=== PATIENT | female | born 1940 | race Caucasian/White ===

== ENCOUNTER → 2017-07-20 | Outpatient (REF) | payer MEDICARE ==
[~2017-07-20] MED LIST: /DILT60TAB PO; /NITR4TASL SL; ACET1TAB17 PO; AMLO5TAB2 PO; ASPI81TA7 PO; CIPR500T89 PO; COUM7.5T PO; DYAZCA PO; HALO0.5H PO; KEFL250C11 PO; LISI10TA2 PO; LOSA100T PO; MYCO500T PO; NORV5TAB PO; NYST50SS SS; OMEP20CA3 PO; PRED10TA PO; PRED5TAB PO; PRIL20CA PO; TYLE325T5 PO
[2017-07-20 18:23] LABS: ALBUMIN 3.9 GM/DL (3.2-5.2); ALBUMIN/GLOBULIN RATIO 1.11 (1.00-1.93); BILIRUBIN,TOTAL 0.4 MG/DL (0.2-1.0); CREATININE FOR GFR 1.87 MG/DL (0.55-1.02); GLOMERULAR FILTRATION RATE 27.9 (>39); POTASSIUM SERUM 4.2 MEQ/L (3.5-5.1); TOTAL PROTEIN 7.4 GM/DL (6.4-8.2)
[2017-07-20 18:48] LABS: MEAN CORPUSCULAR HEMOGLOBIN 28.6 pg (27.0-33.0); MEAN CORPUSCULAR HGB CONC 32.9 g/dl (32.0-36.5); RED CELL DISTRIBUTION WIDTH 13.1 % (11.5-14.5); WHITE BLOOD COUNT 8.8 10^3/uL (4.0-10.0)
== END ==
LOC: M SFHCCLAY 13:42
PROVIDERS: ATTEND Nurse Practitioner Family
DX: I10 Essential (primary) hypertension (principal); Z13.6 Encounter for screening for cardiovascular disorders; E55.9 Vitamin D deficiency, unspecified

== ENCOUNTER → 2017-07-20 | Outpatient (CLI) | payer MEDICARE ==
--- NOTE | 2017-07-20 14:45 | REP ---
RIGHT HIP, AP PELVIS, THREE VIEWS: HISTORY: Hip pain. COMPARISON: 10/04/2013 Three is no acute fracture or dislocation. There is narrowing of the joint space with associated sclerosis. IMPRESSION: Degenerative change as described above.
== END ==
LOC: M CLY 13:50
PROVIDERS: ATTEND Nurse Practitioner Family
DX: M25.551 Pain in right hip (principal); M16.11 Unilateral primary osteoarthritis, right hip; I12.9 Hypertensive chronic kidney disease with stage 1 through stage 4 chronic kidney disease, or unspecified chronic kidney disease; Z13.6 Encounter for screening for cardiovascular disorders; E55.9 Vitamin D deficiency, unspecified; N18.9 Chronic kidney disease, unspecified; D63.1 Anemia in chronic kidney disease
CPT/HCPCS: 73502; 80053; 80061; 82306; 85027; G0463

== ENCOUNTER → 2019-06-25 | Outpatient (REF) | payer MEDICARE, MEDICAID ==
[~2019-06-25] MED LIST changes: -/DILT60TAB PO; -/NITR4TASL SL; -ACET1TAB17 PO; +ACET1TAB55 PO; +DILT1TAB12 PO; +LISI10TA15 PO; -LISI10TA2 PO; +NITR0.4S SL; -OMEP20CA3 PO; +OMEP20CA4 PO; +PRED-351 PO; -PRED10TA PO
[2019-06-25 14:39] LABS: PERCENT SATURATION 9.7 % (13.2-45.0)
== END ==
LOC: M LAB REF 13:48
PROVIDERS: ATTEND Internal Medicine Nephrology
DX: D50.9 Iron deficiency anemia, unspecified (principal)

== ENCOUNTER → 2019-07-05 | Outpatient (CLI) | payer MEDICARE, MEDICAID ==
--- NOTE | 2019-07-05 15:14 | REP ---
Urinary tract sonography: History: Chronic kidney disease stage IV. Findings: Scanning at the level of the urinary bladder shows the presence of emptying ureteral jets bilaterally on color Doppler interrogation of the bladder lumen. The visualized bladder rincon are smooth. There is no evidence of hydronephrosis on either side. The kidneys are atrophic and echogenic consistent with chronic medical renal disease. No mass, cyst, or calculus appreciated. The right kidney measures 8.9 x 3.6 x 4.0 cm. Left renal dimensions are 7.9 x 2.8 x 3.3 cm. Impression: Bilateral increased renal cortical echogenicity pattern and bilateral renal atrophy consistent with chronic medical renal disease. No hydronephrosis is seen. Electronically Signed by Shreyas García MD 07/05/2019 04:28 P
== END ==
LOC: M RAD 14:10
PROVIDERS: ATTEND Internal Medicine Nephrology
DX: N18.4 Chronic kidney disease, stage 4 (severe) (principal)

== ENCOUNTER → 2019-08-28 | Outpatient (REF) | payer MEDICARE, MEDICAID ==
[2019-08-28 13:49] LABS: URINE VOLUME 1150 ML
[2019-08-28 14:04] LABS: PERCENT SATURATION 8.5 % (13.2-45.0)
[2019-08-28 14:06] LABS: CREATININE, SERUM 2.7 MG/DL (0.6-1.0)
[2019-08-28 14:07] LABS: CREATININE CLEARANCE, URINE 12.6 ML/MIN (75-115); CREATININE, URINE 42.7 MG/DL; TOTAL VOLUME, URINE 1150 ML; URINE TOTAL PROTEIN 146.7 MG/DL (0-12)
[2019-08-29 11:14] LABS: UPEP INTERPRETATION NO M-SPIKE NOTED
== END ==
LOC: M LAB REF 13:09
PROVIDERS: ATTEND Internal Medicine Nephrology
DX: D50.9 Iron deficiency anemia, unspecified (principal)

== ENCOUNTER 2020-01-08 19:05 | Inpatient (IN) | payer MEDICARE, MEDICAID ==
[~2020-01-08] VITALS: Ht 167.6 cm; Wt 42.6 kg
[~2020-01-08 19:05] MED LIST changes: +OMEP1CAP73 PO; -OMEP20CA4 PO
--- NOTE | 2020-01-08 20:20 | ECGEPIP ---
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
[2020-01-08] MEDS ORDERED: PRED5PAK PO (20:47)
[2020-01-08] MEDS ORDERED: FISH306C PO (20:47)
[2020-01-08] MEDS ORDERED: NITR4TASL SL ×2 (20:47→22:02)
[2020-01-08] MEDS ORDERED: FURO20TA2 PO (20:47)
[2020-01-08] MEDS ORDERED: GARL1000 PO ×2 (20:47→22:02)
[2020-01-08] MEDS ORDERED: ONE50TAB3 PO (20:47)
[2020-01-08] MEDS ORDERED: DIAL800T3 PO (20:47)
[2020-01-08] MEDS ORDERED: METO25TA4 PO (20:47)
[2020-01-08] MEDS ORDERED: ROCA0.25 PO (20:47)
[2020-01-08 20:52] LABS: BASO % 0.1 % (0.0-1.0); LYMPH # 0.3 10^3/uL (1.5-5.0); LYMPH % 1.8 % (24.0-44.0); MEAN CORPUSCULAR HEMOGLOBIN 27.4 pg (27.0-33.0); MEAN CORPUSCULAR HGB CONC 32.9 g/dl (32.0-36.5); MEAN CORPUSCULAR VOLUME 83.1 fl (80.0-96.0); MONO # 0.5 10^3/uL (0.0-0.8); NEUTROPHILS # 14.7 10^3/uL (1.5-8.5); NEUTROPHILS % 94.5 % (36.0-66.0); PLATELET COUNT, AUTOMATED 330 10^3/uL (150-450); RED BLOOD COUNT 2.01 10^6/uL (4.00-5.40); WHITE BLOOD COUNT 15.6 10^3/uL (4.0-10.0)
[2020-01-08 20:54] LABS: HEMATOCRIT 16.7 % (36.0-47.0); HEMOGLOBIN 5.5 g/dl (12.0-15.5)
[2020-01-08 21:11] LABS: INR 1.11; PARTIAL THROMBOPLASTIN TIME 31.4 SECONDS (25.0-38.4)
[2020-01-08 21:27] LABS: ALBUMIN 2.2 GM/DL (3.2-5.2); BILIRUBIN,DIRECT 0.1 MG/DL (0.0-0.2); BILIRUBIN,TOTAL 0.3 MG/DL (0.2-1.0); CALCIUM LEVEL 7.7 MG/DL (8.8-10.2); CREATININE FOR GFR 5.59 MG/DL (0.55-1.30); GLOMERULAR FILTRATION RATE 7.8 (>39); POTASSIUM SERUM 4.6 MEQ/L (3.5-5.1); TOTAL PROTEIN 5.1 GM/DL (6.4-8.2)
[2020-01-08] MEDS ORDERED: PRED5TA PO (22:02)
[2020-01-08] MEDS ORDERED: FISH1000 PO (22:02)
[2020-01-08] MEDS ORDERED: VITMTA PO (22:02)
[2020-01-08] MEDS ORDERED: RENATAB5 PO (22:02)
[2020-01-08 22:15] VITALS: BP 165/95
[2020-01-08 22:30] VITALS: BP 164/83
--- NOTE | 2020-01-08 23:13 | HPEPDOC ---
[facility] Medical History & Physical Date of Admission Jan 08, 2020 Date of Service: Jan 08, 2020 Primary Care Physician: Isaura Mororw Attending Physician: CHAS CHAMBERLAIN MD History and Physical CHIEF COMPLAINT: One-month history of worsening weakness, fatigue and dyspnea HISTORY OF PRESENT ILLNESS: Patient is a 79-year-old female with a past medical history significant for granulomatosis with polyangiitis, end-stage renal disease, hypertension, paroxysmal atrial fibrillation, who presents to the emergency department at the direction of Dr. Tolentino for symptomatic anemia. Patient reports at least one month history of nonproductive cough and worsening shortness of breath. She also reports increasing lethargy and fatigue. Pt was able to ambulate with assistance of a walker 2 weeks ago, now, she reports being unable to sit up unassisted for extended periods of time. She has not been able to eat the last few days secondary to intermittent nausea, without history of emesis. Upon arrival to the ED, patient was on a temperature of 97.5. Pulse of 101, respiratory rate of 19. Her blood pressure was 166/83 and she was maintaining a saturation of 85% on room air. She was subsequently placed on nasal cannula with 4 L of oxygen and her saturation increased to 90%. She was found demonstrated a leukocytosis of 15.6. H&H of 5.5/16.7. BUN/Cr of 90/5.59. Coag studies within normal limits. Respiratory PCR negative. Blood cultures pending. Patient was consented for blood products and a single unit was transfused while she is in emergency department. Patient will be admitted to the hospital for further evaluation and management of her symptomatic anemia and end-stage chronic kidney disease. PAST MEDICAL HISTORY: Granulomatosis with polyangiitis End-stage renal disease Hypertension Vitamin D deficiency Atrial fibrillation, paroxysmal Anemia of chronic disease PAST SURGICAL HISTORY: No surgical history documented SOCIAL HISTORY: Marital status: Resides in: Alone at home, alone Children: SonTravon Employment: Unemployed Tobacco use: Denies any history of nicotine use ETOH: Denies any alcohol use or history of abuse Illicit drug use: Denies any illicit drug use including IV aura marijuana. Other: Patient utilizes a walker for an evaluation at home. FAMILY HISTORY: Family history noncontributory ALLERGIES: Penicillin Myosin, hives Clarithromycin Cortisone Lisinopril, hallucinations REVIEW OF SYSTEMS: CONSTITUTIONAL: Patient reports history of increasing lethargy and fatigue. Also notes decreased appetite secondary to nausea. No significant changes in weight. No fevers or chills HEENT: Patient reports a long-standing history of intermittent headaches, amenable to [id number] therapy. No recent changes in vision or hearing. No difficulty swallowing. No sinus pain or pressure. No history of epistaxis. CARDIOVASCULAR: Denies any ami chest pain. No palpitations RESPIRATORY: Reports 1 month history of nonproductive cough, increasing shortness of breath GASTROINTESTINAL: Reports intermittent nausea without emesis, occasional belly pain after eating. No abdominal pain last few days. Does carry a history of intermittent constipation. No black tarry stools or ami blood. GENITOURINARY: Patient reports that she does make urine, denies any urinary symptoms including dysuria frequency, hesitancy or urgency SKIN: Denies any new or changing skin lesions. No new petechiae. MUSCULOSKELETAL: Reports intermittent nonspecific small and large joint pain. Denies any recent history of trauma or known effusions. NEUROLOGICAL: Denies any numbness or tingling in her hands feet arms or legs. Patient does report generalized weakness. PSYCHIATRIC: Reports being anxious regarding requiring dialysis. HOME MEDICATIONS: Please see below. PHYSICAL EXAMINATION: VITAL SIGNS: Temperature 97.8, pulse 92, respiratory rate 19, blood pressure 164/83 (110), pulse oximetry 88 % 4 L via nasal cannula. GENERAL APPEARANCE: Patient interviewed and examined in the emergency departmen t. Patient was found to be laying in bed comfortably in no acute distress. Alert and oriented 3 though, she does not appear to be the greatest historian in regards to her medical history. HEENT: Cephalic, atraumatic, conjunctiva pallor noted. No scleral icterus. PERRLA EOMI, mucous membranes appear pale and dry. No posterior erythema. No cervical lymphadenopathy. No JVD appreciated. Neck is supple CARDIOVASCULAR: Regular rate and rhythm, soft systolic ejection murmur appreciable over the second intercostal space on the right. Chest nontender. LUNGS: Even, shallow breaths. Able to speak in full sentences. Clear to auscultation bilaterally without any wheezes rales or rhonchi, no accessory mu scle use appreciated ABDOMEN: Soft NT / ND normal BS, No HSMG. No guarding or rebound tenderness. SKIN: Stage II pressure ulcer on sacrum. Clean, dry. No bleeding or drainage. MUSCULOSKELETAL: No joint effusions or notable muscle wasting EXTREMITIES: Some lower extremity petechiae noted bilaterally. No other obvious rashes or skin lesions. NEUROLOGICAL: No focal neurologic deficits, sensation equal both upper and lower extremities bilaterally. No apparent dysarthria or aphasia. PSYCHIATRIC: Patient appears anxious, congruent with current medical condition LABORATORY DATA: See below. IMAGING: Chest X-ray (01/08/20): Chest CT (01/08/20): Mild right and minimal left pleural effusions. Moderate bilateral pulmonary infiltrates with areas of consolidation, greatest in the upper lobes with minimal scattered fibro-atelectatic change and interstitial prominence. Mild cardiomegaly with trace pericardial fluid and superior recess. MICROBIOLOGY: Blood cultures 01/08/20): Pending Respiratory panel (01/08/20): Negative ASSESSMENT: Patient is a 79-year-old female, history significant for granulomatosis with polyangiitis, who presents to the emergency department at the behest of Dr. Carol Ann jerome for symptomatic anemia. Patient was found to have an H&H of 5.5/16.7. Received 1 unit in the ED. Pt to be admitted to PCU with tele for additional unit of pRBCs, management of her other comorbidities and likely dialysis later this week. PLAN: #Symptomatic Anemia * Suspect significant anemia of chronic disease compounded with iron deficiency * Patient consented and 1 unit of blood transfusion emergency department. * Second unit of PRBCs will be ordered * Continue to trend H&H and transfuse as necessary #Hypoxemia * Will continue patient on supplemental oxygen, close monitoring * Anticipate improvement with rise in H/H #End-stage renal disease * Patient does not appear to be in need of emergent dialysis. Patient is that she is agreeable to dialysis, she has been resistant in the past. * BUN/Cr of 90/5.59, creatinine of 2.7 on 08/28/19. * Nephrology to be consulted and we appreciate their input #Granulomatosis with polyangiitis * Continue patient on home dose of prednisone #Bilateral Pulmonary Infiltrates * Chest CT does show findings consistent with Shahrzad's. * PCN and Clarithromycin allergy, will start Levofloxicin PO for empiric treatment. * Pro-calcitonin for baseline and de-escalation * Follow Blood cultures * Sputum gram stain/cultures #Paroxysmal atrial fibrillation * Normal sinus rhythm on EKG * Rate controlled with a pulse 92 #Hypertension * Compounded by patient's Shahrzad's diagnosis. * Continue patient's home amlodipine and metoprolol #Vitamin D deficiency * Continue home calcitriol #Stage II pressure ulcer on sacrum * Routine care #Debility, question of noncompliance * Patient reports that she discontinue the majority of her medications appro ximately 2 months ago under the guidance of her bobbin winder tender. * As of current, patient states that she is continuing only on 5 mg of amlodipine and her prednisone. * PT/OT for deconditioning * PFS for home care/possible placement DVT PROPHYLAXIS: SubQ Heparin Q12 DISPOSITION: Anticipate greater than 2 midnights Attending Addendum: I discussed the care/management of this patient with Dr. Bates in detail and agree with the plan above. Vital Signs Vital Signs Date Time Temp Pulse Resp B/P (MAP) Pulse Ox O2 Delivery O2 Flow Rate FiO2 01/08/20 22:35 93 01/08/20 22:30 97.8 19 164/83 88 Nasal Cannula 4.0 Laboratory Data Labs 24H Laboratory Tests 2 01/08/20 19:58: Immature Granulocyte % (Auto) 0.6, Neutrophils (%) (Auto) 94.5H, Lymphocytes (%) (Auto) 1.8L, Monocytes (%) (Auto) 3.0, Eosinophils (%) (Auto) 0.0, Basophils (%) (Auto) 0.1, Neutrophils # (Auto) 14.7H, Lymphocytes # (Auto) 0.3L, Monocytes # (Auto) 0.5, Eosinophils # (Auto) 0.0, Basophils # (Auto) 0.0, Nucleated Red Blood Cells % (auto) 0.0, Prothrombin Time 14.0, Prothromb Time International Ratio 1.11, Activated Partial Thromboplast Time 31.4, Anion Gap 14, Glomerular Filtration Rate 7.8L, Calcium Level 7.7L, Iron Level 13L, Total Iron Binding Capacity 162L, Transferrin % Saturation 8.0L, Ferritin 311H, Total Bilirubin 0.3, Direct Bilirubin 0.1, Aspartate Amino Transf (AST/SGOT) 22, Alanine Aminotransferase (ALT/SGPT) 21, Alkaline Phosphatase 68, Total Protein 5.1L, Albumin 2.2L, Albumin/Globulin Ratio 0.76L, Lipase 123 CBC/BMP Laboratory Tests 01/08/20 19:58 Microbiology Microbiology 01/08/20 Respiratory Virus Panel (PCR) (WILBERTO) - Final, Complete 01/08/20 Blood Culture, Received Pending 01/08/20 Blood Culture, Received Pending Home Medications Scheduled Amlodipine Besylate (Norvasc) 5 Mg Tab, 5 MG PO DAILY Calcitriol (Rocaltrol) 0.25 Mcg Capsule, 0.25 MCG PO DAILY Folic Acid/Vit B Complex and C (Candice-Leslie Tablet) 0.8 Mg Tablet, 1 TAB PO DAILY Furosemide (Furosemide) 20 Mg Tablet, 20 MG PO DAILY Garlic (Garlic Oil) 1,000 Mg Capsule, 1 CAP PO DAILY Metoprolol Tartrate (Metoprolol Tartrate) 25 Mg Tablet, 25 MG PO BID Multivitamins (Thera M Plus Tablet) 1 Each Tablet, 1 TAB PO DAILY [place]-3 Fatty Acids/Fish Oil (Fish Oil 1,000 mg Capsule) 1 Each Capsule, 1,000 MG PO DAILY Prednisone (Prednisone) 5 Mg Tablet, 15 MG PO DAILY Scheduled PRN Nitroglycerin (Nitrostat) 0.4 Mg Tab.subl, 0.4 MG SL NITRO PRN for CHEST PAIN Miscellaneous Medications [place]-3/Dha/Epa/Fish Oil (Fish Oil 500 mg Softgel) 1 Each Capsule, 1 CAP PO Allergies Coded Allergies: clarithromycin (Verified Allergy, Intermediate, rash, 01/08/20) Penicillins (Verified Allergy, Unknown, 01/08/20) cortisone (Verified Allergy, Unknown, 01/08/20) lisinopril (Verified Allergy, Unknown, 01/08/20) A-FIB/CHADSVASC A-FIB History Current/History of A-Fib/PAF?: Yes Current PO Anticoag Therapy: No OH BATES DO Jan 08, 2020 23:13 CHAS CHAMBERLAIN MD Jan 15, 2020 21:47
[2020-01-08 23:30] VITALS: BP 174/88
--- NOTE | 2020-01-08 23:50 | REPVR ---
PROCEDURE INFORMATION: Exam: CT Chest Without Contrast Exam date and time: 01/08/2020 10:25 PM Age: 79 years old Clinical indication: Shortness of breath; Additional info: Sob/hx of granulomatosis with polyangitis TECHNIQUE: Imaging protocol: Computed tomography of the chest without contrast. 3D rendering: MIP and/or 3D reconstructed images were created by the technologist. Radiation optimization: All CT scans at this facility use at least one of these dose optimization techniques: automated exposure control; mA and/or kV adjustment per patient size (includes targeted exams where dose is matched to clinical indication); or iterative reconstruction. COMPARISON: CR PORTABLE CHEST X-RAY 01/08/2020 7:56 PM FINDINGS: Lungs: Moderate bilateral pulmonary infiltrates with areas of consolidation. Minimal scattered fibro-atelectatic change with interstitial prominence. Pleural space: Mild right and minimal left pleural effusions. Heart: The left atrium measures 4.9 cm in its AP dimension. Trace pericardial effusion in superior recesses. Aorta: Unremarkable. No aortic aneurysm. Lymph nodes: Unremarkable. No enlarged lymph nodes. Bones/joints: Unremarkable. No acute fracture. Soft tissues: Unremarkable. IMPRESSION: 1. Mild right and minimal left pleural effusions. 2. Moderate bilateral pulmonary infiltrates with areas of consolidation, greatest in the upper lobes with minimal scattered fibro-atelectatic change and interstitial prominence. 3. Mild cardiomegaly with trace pericardial fluid in superior recesses. Electronically signed by: Sky Chowdary On 01/08/2020 23:50:01 PM
[2020-01-09] VITALS (28 sets, daily range): BP systolic 141–189; BP diastolic 72–92; O2SAT 85–97
[2020-01-09] MEDS: METOPROLOL TART 25 MG TABLET PO SCH ×3 (02:05→20:59)
[2020-01-09] MEDS ORDERED: LevoFLOXacin 750 MG TABLET PO ONE (02:30)
[2020-01-09 06:13] LABS: HEMATOCRIT 26.2 % (36.0-47.0); MEAN CORPUSCULAR HEMOGLOBIN 28.1 pg (27.0-33.0); MEAN CORPUSCULAR HGB CONC 33.6 g/dl (32.0-36.5); MEAN CORPUSCULAR VOLUME 83.7 fl (80.0-96.0); PLATELET COUNT, AUTOMATED 309 10^3/uL (150-450); RED BLOOD COUNT 3.13 10^6/uL (4.00-5.40); WHITE BLOOD COUNT 17.2 10^3/uL (4.0-10.0)
[2020-01-09 06:15] LABS: HEMOGLOBIN 8.8 g/dl (12.0-15.5)
[2020-01-09] MEDS: HEPARIN SOD (PORCINE) 5000 UNITS/ML VIAL (J1644 PER 1000UNITS) SQ SCH ×2 (06:24→18:01)
[2020-01-09 06:41] LABS: ALBUMIN 2.3 GM/DL (3.2-5.2); BILIRUBIN,TOTAL 1.4 MG/DL (0.2-1.0); CALCIUM LEVEL 8.6 MG/DL (8.8-10.2); CREATININE FOR GFR 6.09 MG/DL (0.55-1.30); GLOMERULAR FILTRATION RATE 7.1 (>39); MAGNESIUM LEVEL 2.2 MG/DL (1.8-2.4); TOTAL PROTEIN 6.1 GM/DL (6.4-8.2)
[2020-01-09] MEDS ORDERED: FUROSEMIDE 100 MG/10 ML VIAL (J1940) IV ONE (07:00)
--- NOTE | 2020-01-09 08:10 | REP ---
PORTABLE CHEST X-RAY: Single view. HISTORY: Shortness of breath. History of granulomatosis with polyangiitis. COMPARISON CHEST X-RAY: May 08, 2015. FINDINGS: The heart is mildly enlarged. Thoracic aorta is tortuous as before. There are extensive bilateral perihilar infiltrates right more extensive and more opaque than left. These are new and most consistent with pneumonia. Pleural angles are sharp. Oxygen delivery tubing and monitoring electrodes are seen. There is diffuse osteopenia. IMPRESSION: Extensive bilateral perihilar infiltrates most consistent with pneumonia although pulmonary edema is a possibility. Heart is mildly prominent. Electronically Signed by Shreyas García MD 01/09/2020 09:31 A
[2020-01-09] MEDS ORDERED: predniSONE 5 MG TAB PO SCH (09:00)
[2020-01-09] MEDS: amLODIPine 5 MG TAB PO SCH (09:12)
[2020-01-09] MEDS: CALCITRIOL 0.25 MCG CAP (S0169) PO SCH (09:12)
[2020-01-09] MEDS: MULTIVITAMINS/MINERALS THERAP 1 TAB PO SCH (09:12)
[2020-01-09] MEDS: methylPREDNISolone INJ 125 MG/2 ML VIAL (J2930) IV SCH ×2 (09:13→20:58)
[2020-01-09] MEDS ORDERED: HEPARIN 1,000 UNITS/ML 10ML VIAL (FOR RADIOLOGY& DIALYSIS ONLY)(J1644-10) As Ordered ONE (09:34)
[2020-01-09] MEDS ORDERED: LIDOCAINE 1% MDV 20ML VIAL As Ordered ONE (09:34)
[2020-01-09] MEDS ORDERED: VANCOMYCIN HCL 500 MG/10 ML VIAL (J3370) As Ordered ONE (09:35)
[2020-01-09] MEDS ORDERED: fentaNYL 100 MCG/2 ML INJECTION (J3010) As Ordered ONE (10:11)
[2020-01-09] MEDS ORDERED: diphenhydrAMINE INJ 50MG/ML VIAL (J1200) As Ordered ONE (10:11)
[2020-01-09] MEDS ORDERED: MIDAZOLAM INJ 2 MG/2 ML VIAL (J2250) As Ordered ONE (10:11)
--- NOTE | 2020-01-09 10:38 | IRMSE ---
[facility] IR Moderate Sedation Eval. Date and Time Date: Jan 09, 2020 Time: 10:38 ASA Classification ASA Classification: III-Severe systemic dis. Mallampati Score: II NPO: Yes Obstructive Sleep Apnea: No Interval Plan: moderate sedation SOBIA QUINTANILLA MD Jan 09, 2020 10:38
--- NOTE | 2020-01-09 10:39 | POST-OPPD ---
Postoperative Procedure Note Date Of Procedure: Jan 09, 2020 Time Of Procedure: 10:38 PREOPERATIVE DIAGNOSIS: Rf POSTOPERATIVE DIAGNOSIS: same FINDINGS: patent right IJ PROCEDURE: right side PermCath placed. ready to use SURGEON: valentino ANESTHESIA: mod sed ESTIMATED BLOOD LOSS: < 5 ml COMPLICATIONS: none POSTOPERATIVE CONDITION: stable SOBIA QUINTANILLA MD Jan 09, 2020 10:39
[2020-01-09] MEDS ORDERED: HEPARIN 1,000 UNITS/ML 10ML VIAL (FOR RADIOLOGY& DIALYSIS ONLY)(J1644-10) XX ONE ×2 (10:45→14:00)
[2020-01-09] MEDS ORDERED: HEPARIN 1,000 UNITS/ML 10ML VIAL (FOR RADIOLOGY& DIALYSIS ONLY)(J1644-10) IV ONE ×2 (10:45→14:00)
--- NOTE | 2020-01-09 11:30 | CR ---
DATE OF CONSULTATION: 01/09/2020 REASON FOR CONSULTATION: Shortness of breath, renal failure and urgent need for dialysis. HISTORY OF PRESENT ILLNESS: Mrs. Ocampo is a 79-year-old frail lady with multiple chronic medical problems including a long history of microscopic polyangiitis, advanced renal failure, anemia secondary to chronic renal failure, hypertension, paroxysmal atrial fibrillation and generalized weakness. She was seen in the office a couple of weeks ago and at that time she was advised for admission due to advanced renal failure and need for dialysis. However, the patient declined it and went home. Her son who lives in the [facility] received a call from the patient's neighbor about her deteriorating condition and he came home and brought her to the emergency room. The patient was found to have a severe anemia with hemoglobin of 5.5. She also has advanced renal failure with possible uremia. The patient was hypoxic with oxygen saturation about 85% and has been on 100% oxygen. She has been transferred to intensive care unit this morning due to worsening respiratory status. Nephrology consultation was requested and the patient is seen this morning in intensive care unit. PAST MEDICAL HISTORY (Significant for): 1. Long history of microscopic polyangiitis for which she has been treated with steroids and mycophenolate. Currently, she has stopped taking her medications. 2. Stage V of chronic kidney disease with possible uremia. 3. Severe symptomatic anemia. 4. Hypertension. 5. History of paroxysmal atrial fibrillation. 6. History of secondary hyperparathyroidism. 7. History of vitamin D deficiency. 8. History of chronic degenerative arthritis. 9. History of osteoporosis. PAST SURGICAL HISTORY: Significant for kidney biopsy several years ago. PERSONAL AND SOCIAL HISTORY: The patient lives by herself. She does not smoke or drink. FAMILY HISTORY: Negative for end-stage renal disease. ALLERGIES: She has allergy to PENICILLIN, CLARITHROMYCIN, LISINOPRIL and CORTISONE. MEDICATIONS: Her home medications include amlodipine 5 mg daily, calcitriol 0.25 mcg daily, multivitamin 1 tablet daily, furosemide 20 mg daily, metoprolol 25 mg twice a day, prednisone 5 mg daily. REVIEW OF SYSTEMS: The patient has been gradually failing for the last few months. She has been advised for dialysis as an outpatient; however, she declined it. She denies any fever or chills. She reports a poor appetite and chronic nausea with occasional vomiting. Ears, nose and throat are unremarkable. Cardiovascular system is significant for dyspnea and she denies any chest pain. Respiratory system is significant for severe shortness of breath. She denies any hemoptysis or pleuritic type of chest pain. GI system is significant for chronic nausea and loss of appetite. She also has vomited occasionally. Musculoskeletal system significant for generalized weakness and frequent falls. She has degenerative arthritis. Denies any leg edema. Hematological system is significant for severe symptomatic anemia. She has not been on any anticoagulation. Neurological system is negative for seizures or stroke. Psychosocial system is significant for mild anxiety, but not on any medications. PHYSICAL EXAMINATION: Elderly frail lady seen in the intensive care unit. She looks quite pale and in mild respiratory distress. Temperature is 99.9 degrees Fahrenheit, heart rate 94 per minute and respiratory rate 22 per minute. Blood pressure 166/87 mmHg and oxygen saturation 95% on 35 FIO2 with high velocity nasal insufflation (HVNI) Vapotherm. Her head is atraumatic. She looks emaciated and has crusty dry lips. Neck is supple and jugular venous distention (JVD) is mildly elevated. Heart sounds are somewhat tachycardiac, but there is no pericardial friction rub. Lungs have coarse bilateral crepitations. Abdomen: Soft and nontender. Bowel sounds are normal. Extremities: Without any cyanosis or clubbing. She does have mild asterixis. Neurologically, she is awake, able to answer questions and seems to be well oriented. LABORATORY DATA: Today's labs show WBC count 17.2, hemoglobin 8.8 and hematocrit 26.2. Platelets 309. On admission, her WBC count was 15.6, hemoglobin was 5.5 and hematocrit 16.7. Her sodium is 137, potassium 5.0, CO2 17, BUN 102 and creatinine 6.09. Glucose 114 and calcium 8.6. Bilirubin is 1.4. Total protein 6.1. Albumin 2.3. She had a chest CT scan done in the emergency room which showed mild right and minimal left pleural effusion, moderate bilateral pulmonary infiltrates with areas of consolidation greatest in the upper lobes with minimal scattered fibroatelectatic changes. PROBLEMS: 1. Uremia with advanced renal failure. The patient has known history of stage V chronic kidney disease for several months. she has been declining dialysis and I discussed with her about her situation. She has now consented for dialysis and we will get a Perma-Cath placed and dialyze her this morning. 2. Metabolic acidosis. She does have chronic metabolic acidosis which is slightly worse now due to worsening renal failure and this will be corrected with dialysis. I do not feel that she needs to have any sodium bicarbonate infusion at this point. 3. Shortness of breath and hypoxemia. She has long history of microscopic polyangiitis and I am concerned about possible lung involvement. She is also high risk for pneumonia due to aspiration. She has already been treated with levofloxacin. I am going to add Solu-Medrol 125 mg twice a day and we will continue to monitor her closely. We will also try to remove 1 liter of fluid with dialysis today which will also help with her hypoxemia. 4. Symptomatic anemia. Patient has severe anemia on admission which is most likely related to advanced renal failure and may have also some blood loss. She has been already transfused 2 units of packed RBCs and no further transfusion indicated at present. We will continue to monitor her closely. 5. Pulmonary infiltrates. I am not sure if these infiltrates are infective; however, we need to cover all bases in view of her severe immunocompromised condition. I agree with antibiotic therapy and will also treat her for possible polyangiitis associated infiltrates. I am going to give her Solu-Medrol 125 mg twice a day. 6. Hypertension. Blood pressure is generally on the high side. We will continue with amlodipine and metoprolol at present. Will also try to correct her volume status as much as possible and as much as she can tolerate. 7. DO NOT RESUSCITATE (DNR). I have discussed with the patient [id number] and also discussed with her son over the phone. The patient did consent for DNR and DNR orders are being issued. The patient's son is also in agreement. Thank you for involving me in the care of Mrs. Ocampo. I will follow her along with you.
--- NOTE | 2020-01-09 11:53 | REP ---
IR Permcath placement. IR Ultrasound of the right neck. IR Permcath insertion under fluoroscopy and ultrasound guidance. IR Moderate sedation. Clinical information: Renal failure. Needs dialysis. Physician: Dr. Dalton. Procedure: The patient was advised of the benefits, risks and alternatives of the procedure and informed consent was obtained. The time-out was performed with verification of the patient's name, MRN, site of procedure and type of procedure to be performed. The patient was positioned in the supine position on the angiographic table. The site was prepped and draped in the usual sterile fashion. Moderate sedation was performed by the physician including the presence of an independent trained observer that assisted in monitoring the patient's level of consciousness and physiologic status. Following the administration of fentanyl and Versed , the physician spent 45 minutes of continuous face to face time with the patient. Ultrasound of the right neck reveals a patent and compressible right internal jugular vein. A arbor end mainspring former radiograph reveals right lung opacification. The neck and anterior chest wall were anesthetized with lidocaine. The right internal jugular vein was accessed under ultrasound guidance, using a micro introducer needle, via a lateral approach. An 018 cope wire was advanced into the inferior vena cava. Incision at the internal jugular access site and anterior chest wall were made using a scalpel. The needle was removed and the tract was serially dilated under fluoroscopy guidance. A peel away sheath was advanced over the wire under fluoroscopy guidance into the Superior vena cava. The catheter was inserted through the subcutaneous tissues of the chest wall with a tunneling device. The catheter was then advanced through the peel-away sheath under fluoroscopy guidance to the right atrium. The peel-away sheath was removed. The catheter was positioned with the tip in the right atrium. The puncture site was closed. The catheter was secured in place using 2-0 Prolene. Both sites were cleansed and sterile dressings applied. At the conclusion of the procedure, the ports of the catheter aspirate and flush freely. The catheter was locked with high-dose heparin. The patient tolerated the procedure well and was returned to the PRU in stable condition. EBL: < 5 ml. Complications: None. Conclusion: Successful placement of right sided Palindrome Permcath for dialysis. The catheter is ready for immediate use. Thank you this referral. Electronically Signed by Amberly Dalton MD 01/09/2020 11:51 A
--- NOTE | 2020-01-09 17:07 | IPNPDOC ---
Subjective Date Seen The patient was seen on 01/09/20. Subjective Chief Complaint/HPI maintaining SaO2 on HF, but confused Constitutional: Denies: Chills, Fever ENT: Denies: Head Aches Skin: Denies: Rash Pulmonary: Denies: Dyspnea, Cough Cardiovascular: Denies: Chest Pain, Palpitations Gastrointestinal: Denies: Nausea, Vomiting Genitourinary: Denies: Dysuria Objective Physical Examination General Exam: Positive: Alert (confused), Mild Distress Neck Exam: Negative: JVD Heart Exam: Positive: Rate Normal Telemetry: Positive: Atrial fibrillation Abdomen Exam: Positive: Normal bowel sounds Extremity Exam: Negative: Edema Skin Exam: Negative: Rash Neuro Exam: Positive: Normal Speech Assessment /Plan Problems (1) Respiratory failure with hypoxia Status: Acute Problem Text: holding SaO2 on HF 40L 100% (2) Bilateral pneumonia Status: Acute Response to Treatment: Stable Problem Text: D2 vanco/levo-RD; MP 125 BID (if MPA lung involvement) 01/07 procalcitonin P 01/07 -RP 01/07 BCX2 NG 01/07 CT chest: 1. Mild right and minimal left pleural effusions. 2. Moderate bilateral pulmonary infiltrates with areas of consolidation, greatest in the upper lobes with minimal scattered fibro-atelectatic change and interstitial prominence. 3. Mild cardiomegaly with trace pericardial fluid in superior recesses. (3) Hypertension Status: Chronic Problem Text: stable on HD amlo 5, met tar 25 BID (4) Microscopic polyangiitis Status: Chronic Problem Text: c 2 ESRD +/- pulmonary infiltrates (5) Anemia in stage 4 chronic kidney disease Status: Chronic Problem Text: 2 CKD, Fe def, +/- MPA 01/08 8.8 01/07 5.5-tx 2u (6) ESRD (end stage renal disease) Status: Chronic Response to Treatment: Worse Problem Text: 01/08 px now consenting to HD, Perma-Cath placed (7) Paroxysmal atrial fibrillation Status: Chronic Problem Text: RC on met tar 25 BID Plan/VTE VTE Prophylaxis Ordered?: Yes VS, I&O, 24H, Fishbone Vital Signs/I&O Vital Signs Date Time Temp Pulse Resp B/P (MAP) Pulse Ox O2 Delivery O2 Flow Rate FiO2 01/09/20 15:00 96 High Flow Mask 40.0 95 01/09/20 12:00 97.9 86 17 153/79 (103) I&O- Last 24 Hours up to 6 AM 01/09/20 06:00 Intake Total 1323 ml Output Total 300 ml Balance 1023 ml Laboratory Data 24H LABS Laboratory Tests 2 01/08/20 19:58: Immature Granulocyte % (Auto) 0.6, Neutrophils (%) (Auto) 94.5H, Lymphocytes (%) (Auto) 1.8L, Monocytes (%) (Auto) 3.0, Eosinophils (%) (Auto) 0.0, Basophils (%) (Auto) 0.1, Neutrophils # (Auto) 14.7H, Lymphocytes # (Auto) 0.3L, Monocytes # (Auto) 0.5, Eosinophils # (Auto) 0.0, Basophils # (Auto) 0.0, Nucleated Red Blood Cells % (auto) 0.0, Prothrombin Time 14.0, Prothromb Time International Ratio 1.11, Activated Partial Thromboplast Time 31.4, Anion Gap 14, Glomerular Filtration Rate 7.8L, Calcium Level 7.7L, Iron Level 13L, Total Iron Binding Capacity 162L, Transferrin % Saturation 8.0L, Ferritin 311H, Total Bilirubin 0.3, Direct Bilirubin 0.1, Aspartate Amino Transf (AST/SGOT) 22, Alanine Aminotransferase (ALT/SGPT) 21, Alkaline Phosphatase 68, Total Protein 5.1L, Albumin 2.2L, Albumin/Globulin Ratio 0.76L, Lipase 123 01/09/20 05:06: Anion Gap 11, Glomerular Filtration Rate 7.1L, Calcium Level 8.6L, Total Bilirubin 1.4#H, Aspartate Amino Transf (AST/SGOT) 25, Alanine Aminotransferase (ALT/SGPT) 23, Alkaline Phosphatase 72, Total Protein 6.1L, Albumin 2.3L, Albumin/Globulin Ratio 0.61L, Magnesium Level 2.2 01/09/20 05:07: Nucleated Red Blood Cells % (auto) 0.0 01/09/20 09:21: CBC/BMP Laboratory Tests 01/08/20 19:58 01/09/20 05:06 01/09/20 05:07 Microbiology Microbiology 01/08/20 Respiratory Virus Panel (PCR) ([facility]) - Final, Complete 01/08/20 Blood Culture, Received Pending 01/08/20 Blood Culture, Received Pending Walter Castorena M.D. MERLYN Jan 09, 2020 17:07
[2020-01-10] VITALS (7 sets, daily range): BP systolic 108–156; BP diastolic 50–88
[2020-01-10 05:00] LABS: HEMATOCRIT 24.9 % (36.0-47.0); HEMOGLOBIN 8.6 g/dl (12.0-15.5); MEAN CORPUSCULAR HGB CONC 34.5 g/dl (32.0-36.5); MEAN CORPUSCULAR VOLUME 81.1 fl (80.0-96.0); PLATELET COUNT, AUTOMATED 268 10^3/uL (150-450); RED BLOOD COUNT 3.07 10^6/uL (4.00-5.40); WHITE BLOOD COUNT 12.3 10^3/uL (4.0-10.0)
[2020-01-10 05:33] LABS: BILIRUBIN,TOTAL 0.5 MG/DL (0.2-1.0); C REACTIVE PROTEIN QUANTITATIV 17.4 MG/DL (0.00-0.30); CALCIUM LEVEL 8.1 MG/DL (8.8-10.2); CREATININE FOR GFR 4.39 MG/DL (0.55-1.30); GLOMERULAR FILTRATION RATE 10.4 (>39); MAGNESIUM LEVEL 2.2 MG/DL (1.8-2.4); POTASSIUM SERUM 4.5 MEQ/L (3.5-5.1); TOTAL PROTEIN 5.4 GM/DL (6.4-8.2)
[2020-01-10 06:02] LABS: ERYTHROCYTE SEDIMENTATION RATE 60 mm/hr (0-30)
[2020-01-10] MEDS: HEPARIN SOD (PORCINE) 5000 UNITS/ML VIAL (J1644 PER 1000UNITS) SQ SCH ×2 (06:52→17:12)
[2020-01-10] MEDS: METOPROLOL TART 25 MG TABLET PO SCH (08:06)
[2020-01-10] MEDS: amLODIPine 5 MG TAB PO SCH (08:07)
[2020-01-10] MEDS: methylPREDNISolone INJ 125 MG/2 ML VIAL (J2930) IV SCH ×2 (08:07→21:00)
[2020-01-10] MEDS: MULTIVITAMINS/MINERALS THERAP 1 TAB PO SCH (08:07)
[2020-01-10] MEDS: CALCITRIOL 0.25 MCG CAP (S0169) PO SCH (08:10)
--- NOTE | 2020-01-10 08:47 | IPNPDOC ---
Subjective Date Seen The patient was seen on 01/10/20. Subjective Chief Complaint/HPI improved dyspnea, mentation Constitutional: Denies: Chills, Fever ENT: Denies: Head Aches Skin: Denies: Rash Pulmonary: Denies: Dyspnea, Cough Cardiovascular: Denies: Chest Pain, Palpitations Gastrointestinal: Denies: Nausea, Vomiting Objective Physical Examination General Exam: Positive: Alert (confused), Mild Distress Neck Exam: Negative: JVD Heart Exam: Positive: Rate Normal Telemetry: Positive: Atrial fibrillation Abdomen Exam: Positive: Normal bowel sounds Extremity Exam: Negative: Edema Skin Exam: Negative: Rash Neuro Exam: Positive: Normal Speech Assessment /Plan Problems (1) Paroxysmal atrial fibrillation Status: Chronic Problem Text: HD met tar 25 BID 01/10/20 1015 during HD p ~600 cc off-AF RVR to 160s s mild dyspnea/N; therefore, IV met 5 x 3 and increased met tar to 50 BID, held amlo 01/09 K 4.5/Mg 2.2 06/2012 TTE Damaso: [id number], grade 1 valentin dys, mod TR, mild PHTN (2) Respiratory failure with hypoxia Status: Acute Problem Text: 2 pulmonary edema/B PN +/- MPA flare 01/09 decreased O2 requirement c HD to HF 30/65% from 40/100% (3) Bilateral pneumonia Status: Acute Response to Treatment: Stable Problem Text: D3 vanco/levo-RD; MP 125 BID (if MPA lung involvement) 01/07 procalcitonin 2.5 01/07 -RP 01/07 BCX2 NG 01/07 CT chest: 1. Mild right and minimal left pleural effusions. 2. Moderate bilateral pulmonary infiltrates with areas of consolidation, greatest in the upper lobes with minimal scattered fibro-atelectatic change and interstitial prominence. 3. Mild cardiomegaly with trace pericardial fluid in superior recesses. (4) Hypertension Status: Chronic Problem Text: see AF HD amlo 5, met tar 25 BID (5) Microscopic polyangiitis Status: Chronic Problem Text: c 2 ESRD +/- pulmonary infiltrates 01/09 ANCA Ab P 01/09 CRP/ESR 17/60-not cw systemic vasculitis flare (6) Anemia in stage 4 chronic kidney disease Status: Chronic Problem Text: 2 CKD, Fe def, +/- MPA 01/09 8.6 01/08 8.8 01/07 5.5-tx 2u (7) ESRD (end stage renal disease) Status: Chronic Response to Treatment: Worse Problem Text: 01/09 75/4.4, 4.5, repeating HD today 01/08 px now consenting to HD, Perma-Cath placed sp HD -1L Plan/VTE VTE Prophylaxis Ordered?: Yes VS, I&O, 24H, Fishbone Vital Signs/I&O Vital Signs Date Time Temp Pulse Resp B/P (MAP) Pulse Ox O2 Delivery O2 Flow Rate FiO2 01/10/20 08:06 85 131/88 01/10/20 08:00 30.0 65 01/10/20 08:00 99.1 20 94 HVNI-Vapotherm I&O- Last 24 Hours up to 6 AM 01/10/20 06:00 Intake Total 360 ml Output Total 1150 ml Balance -790 ml Laboratory Data 24H LABS Laboratory Tests 2 01/09/20 09:21: Hepatitis B Core IgG Antibody Negative 01/10/20 04:44: Nucleated Red Blood Cells % (auto) 0.0, Erythrocyte Sedimentation Rate 60H, Anion Gap 7L, Glomerular Filtration Rate 10.4L, Calcium Level 8.1L, Magnesium Level 2.2, Total Bilirubin 0.5#, Aspartate Amino Transf (AST/SGOT) 18, Alanine Aminotransferase (ALT/SGPT) 18, Alkaline Phosphatase 60, C-Reactive Protein, Quantitative 17.40H, Total Protein 5.4L, Albumin 2.0L, Albumin/Globulin Ratio 0.59L CBC/BMP Laboratory Tests 01/10/20 04:44 Microbiology Microbiology 01/08/20 Respiratory Virus Panel (PCR) ([facility]) - Final, Complete 01/08/20 Blood Culture - Preliminary, Resulted No growth after 24 hours . All specim... 01/08/20 Blood Culture - Preliminary, Resulted No growth after 24 hours . All specim... Walter Castorena M.D. Jan 10, 2020 08:47
[2020-01-10 10:16] LABS: HEPATITIS B CORE ANTIBODY IGM NEGATIVE (NEGATIVE); HEPATITIS B SURFACE ANTIBODY NEGATIVE (POSITIVE); HEPATITIS B SURFACE ANTIGEN NEGATIVE (NEGATIVE); HEPATITIS C VIRUS ABY INDEX 0.1 INDEX (<0.8)
[2020-01-10] MEDS ORDERED: METOPROLOL TART 25 MG TABLET PO STA (10:17)
[2020-01-10] MEDS ORDERED: METOPROLOL TART 25 MG TABLET As Ordered ONE (10:20)
[2020-01-10] MEDS ORDERED: METOPROLOL 5 MG/5 ML VIAL As Ordered ONE (10:27)
[2020-01-10] MEDS ORDERED: METOPROLOL 5 MG/5 ML VIAL IV STA ×3 (10:32→10:53)
--- NOTE | 2020-01-10 12:06 | REP ---
Portable chest x-ray: Single view. History: CHF. Comparison portable chest x-ray January 08, 2020. Findings: A tunneled central venous catheter is noted in place on the right. Monitoring electrodes are seen. Mildly prominent heart is observed. There are are interstitial heavy infiltrates bilaterally in a perihilar distribution consistent with pulmonary edema or bilateral inflammatory infiltrates. There are similar in extent and opacity from the previous radiograph January 08, 2020. No ami pleural effusion is evident. Electronically Signed by Shreyas García MD 01/10/2020 11:58 A
[2020-01-10 12:14] LABS: CALCIUM LEVEL 7.8 MG/DL (8.8-10.2); CK-MB VALUE MASS 3.3 NG/ML (<3.6); CREATININE FOR GFR 2.62 MG/DL (0.55-1.30); FREE T4 1.43 NG/DL (0.76-1.46); GLOMERULAR FILTRATION RATE 18.8 (>39); MAGNESIUM LEVEL 2.1 MG/DL (1.8-2.4); MB/CK RELATIVE INDEX 3.63 (< OR =4); POTASSIUM SERUM 3.8 MEQ/L (3.5-5.1); THYROID STIMULATING HORMONE 0.473 uIU/ML (0.358-3.740); TROPONIN I 0.11 NG/ML (< 0.10)
[2020-01-10] MEDS ORDERED: METOPROLOL TART 50 MG TAB As Ordered ONE (12:48)
[2020-01-10] MEDS: METOPROLOL TART 50 MG TAB PO SCH ×2 (12:58→17:12)
--- NOTE | 2020-01-10 13:44 | IPN ---
DATE OF VISIT: 01/10/2020 Mrs. Ocampo is seen this morning during hemodialysis. She was dialyzed yesterday for 2 hours and 1 liter of fluid was removed. She also received 2 units of packed RBCs yesterday morning. Her dyspnea is better this morning and she also had breakfast. She denies any nausea or vomiting. On physical examination, temperature 99.1 degrees Fahrenheit, heart rate 85 at the start of dialysis and respiratory rate 20 per minute. Blood pressure 131/88 mmHg and oxygen saturation 94%. About an hour of starting dialysis, I have seen her again and now she has gone into rapid atrial fibrillation with heart rate in the 140s up to 160s. She is feeling slightly more short of breath. She denies any chest pain. Head is atraumatic. Dialysis catheter in right internal jugular vein is intact. Heart sounds now tachycardiac and irregular with rapid atrial fibrillation while at the start of dialysis she had a regular rhythm with heart rate in the 80s. Abdomen: Soft and nontender. Bowel sounds normal. Extremities: Without any cyanosis or clubbing. Neurologically, she is awake and alert and able to answer questions appropriately. Today's labs show WBC count 12.3, hemoglobin 8.6 and hematocrit 24.9. Platelets 268. Sodium 138, potassium 4.5, CO2 24, BUN 75 and creatinine 4.39. Calcium 8.1 and magnesium 2.2. PROBLEMS: 1. Shortness of breath, most likely multifactorial. She has history of microscopic polyangiitis and was probably also somewhat volume overloaded with some chronic lung changes. We removed 1 liter of fluid yesterday and are trying to remove another 1-1.5 liters today. It remains to be seen how good she tolerates as she is already in rapid atrial fibrillation. 2. Uremia and metabolic acidosis. Her acidosis and uremic symptoms seem to have improved already with short dialysis done yesterday. She will be dialyzed today for 3 hours. She is already eating better and feels that her nausea has improved. 3. Rapid atrial fibrillation. The patient does have history of paroxysmal atrial fibrillation. She has been on low-dose beta song with metoprolol 25 mg b.i.d. Additional dose of metoprolol has been given and we will increase the metoprolol to 50 mg b.i.d. We will stop her Norvasc for now. She is not a suitable candidate for anticoagulation in view of her recurrent falls at home and high risk for GI bleed also. 4. Symptomatic anemia. She was severely anemic on admission and may have already had some GI bleed. She has been transfused and hemoglobin is now stable. 5. Pulmonary infiltrates. The patient is currently on levofloxacin and I have also started her on methylprednisone 125 mg every 12 hours due to her history of vasculitis. We will repeat her chest x-ray after dialysis today. 6. DO NOT RESUSCITATE (DNR). The patient did sign DNR and has been DNR status.
[2020-01-10] MEDS ORDERED: ACETAMINOPHEN TAB 650MG DOSE (2X325MG) PO PRN (15:15)
[2020-01-10] MEDS ORDERED: METOPROLOL TART 50 MG TAB PO SCH (21:00)
[2020-01-11] VITALS (12 sets, daily range): BP systolic 133–184; BP diastolic 82–98; O2SAT 97–99
--- NOTE | 2020-01-11 00:52 | ECGEPIP ---
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
[2020-01-11 04:53] LABS: HEMATOCRIT 23.6 % (36.0-47.0); MEAN CORPUSCULAR HGB CONC 33.9 g/dl (32.0-36.5); MEAN CORPUSCULAR VOLUME 82.5 fl (80.0-96.0); PLATELET COUNT, AUTOMATED 278 10^3/uL (150-450); RED BLOOD COUNT 2.86 10^6/uL (4.00-5.40)
[2020-01-11 05:19] LABS: TROPONIN I 0.11 NG/ML (< 0.10)
[2020-01-11 05:27] LABS: BILIRUBIN,TOTAL 0.5 MG/DL (0.2-1.0); CALCIUM LEVEL 7.9 MG/DL (8.8-10.2); CREATININE FOR GFR 3.8 MG/DL (0.55-1.30); GLOMERULAR FILTRATION RATE 12.2 (>39); MAGNESIUM LEVEL 2.2 MG/DL (1.8-2.4); POTASSIUM SERUM 4.6 MEQ/L (3.5-5.1); TOTAL PROTEIN 4.9 GM/DL (6.4-8.2)
[2020-01-11] MEDS: METOPROLOL TART 50 MG TAB PO SCH ×4 (06:00→18:26)
[2020-01-11] MEDS: HEPARIN SOD (PORCINE) 5000 UNITS/ML VIAL (J1644 PER 1000UNITS) SQ SCH ×2 (06:00→18:26)
[2020-01-11] MEDS ORDERED: DARBEPOETIN 100 MCG/0.5 ML *DIALYSIS* SYRINGE (J0882) IV SCH (10:00)
[2020-01-11] MEDS ORDERED: IRON SUCROSE 100MG 5ML VIAL (J1756 PER 1MG) IV SCH (10:00)
[2020-01-11] MEDS: MULTIVITAMINS/MINERALS THERAP 1 TAB PO SCH (10:06)
[2020-01-11] MEDS: methylPREDNISolone INJ 125 MG/2 ML VIAL (J2930) IV SCH ×2 (10:06→21:03)
[2020-01-11] MEDS: LevoFLOXacin 500 MG TABLET PO SCH (10:06)
[2020-01-11] MEDS: CALCITRIOL 0.25 MCG CAP (S0169) PO SCH (10:06)
--- NOTE | 2020-01-11 13:02 | IPNPDOC ---
Subjective Date Seen The patient was seen on 01/11/20. Subjective Chief Complaint/HPI improved dyspnea Constitutional: Denies: Chills, Fever ENT: Denies: Head Aches, Ear Pain Skin: Denies: Rash Pulmonary: Denies: Dyspnea, Cough Cardiovascular: Denies: Chest Pain, Palpitations Gastrointestinal: Denies: Nausea, Vomiting Objective Physical Examination General Exam: Positive: Alert (confused), Mild Distress Neck Exam: Negative: JVD Heart Exam: Positive: Rate Normal Telemetry: Positive: Atrial fibrillation Abdomen Exam: Positive: Normal bowel sounds Extremity Exam: Negative: Edema Skin Exam: Negative: Rash Neuro Exam: Positive: Normal Speech Assessment /Plan Problems (1) Paroxysmal atrial fibrillation Status: Chronic Problem Text: No recurrence on met tar 50 q6H (plan convert to met succ) HD met tar 25 BID 01/10/20 1015 during HD p ~600 cc off-AF RVR to 160s s mild dyspnea/N; therefore, IV met 5 x 3 and increased met tar to 50 q6H, held amlo c conversion to SR 01/09 TSH/FT4 0.5/1.4 01/10 T-I 0.1 01/10 TTE P 06/2012 TTE Damaso: [id number], grade 1 valentin dys, mod TR, mild PHTN (2) Respiratory failure with hypoxia Status: Acute Problem Text: 2 pulmonary edema/B PN +/- MPA flare 01/10 20%/40 01/09 decreased O2 requirement c HD to HF 30/65% from 40/100% (3) Bilateral pneumonia Status: Acute Response to Treatment: Stable Problem Text: D4 levo-RD; MP 125 BID (if MPA lung involvement) 01/07 procalcitonin 2.5 01/07 -RP 01/07 BCX2 NG 01/07 CT chest: 1. Mild right and minimal left pleural effusions. 2. Moderate bilateral pulmonary infiltrates with areas of consolidation, greatest in the upper lobes with minimal scattered fibro-atelectatic change and interstitial prominence. 3. Mild cardiomegaly with trace pericardial fluid in superior recesses. (4) Hypertension Status: Chronic Problem Text: see AF HD amlo 5, met tar 25 BID (5) Microscopic polyangiitis Status: Chronic Problem Text: c 2 ESRD +/- pulmonary infiltrates 01/09 ANCA Ab P 01/09 CRP/ESR 17/60-not cw systemic vasculitis flare (6) Anemia in stage 4 chronic kidney disease Status: Chronic Problem Text: 2 CKD, Fe def, +/- MPA 01/10 8 01/09 8.6 01/08 8.8 01/07 5.5-tx 2u (7) ESRD (end stage renal disease) Status: Chronic Response to Treatment: Worse Problem Text: 01/10 82/3.8, 4.6 01/09 75/4.4, 4.5, removed ~250, then stopped p AF RVR 01/08 px now consenting to HD, Perma-Cath placed sp HD -1L (8) Physical deconditioning Status: Chronic Problem Text: PT NS for dc home Plan/VTE VTE Prophylaxis Ordered?: Yes VS, I&O, 24H, Fishbone Vital Signs/I&O Vital Signs Date Time Temp Pulse Resp B/P (MAP) Pulse Ox O2 Delivery O2 Flow Rate FiO2 01/11/20 12:38 83 133/82 01/11/20 09:37 98 HVNI-Vapotherm 20.0 40 01/11/20 08:05 98.8 18 I&O- Last 24 Hours up to 6 AM 01/11/20 06:00 Intake Total 240 ml Output Total 400 ml Balance -160 ml Laboratory Data 24H LABS Laboratory Tests 2 01/11/20 04:41: Nucleated Red Blood Cells % (auto) 0.0, Anion Gap 6L, Glomerular Filtration Rate 12.2L, Calcium Level 7.9L, Magnesium Level 2.2, Total Bilirubin 0.5, Aspartate Amino Transf (AST/SGOT) 14, Alanine Aminotransferase (ALT/SGPT) 20, Alkaline Phosphatase 59, Troponin I 0.11H, Total Protein 4.9L, Albumin 2.0L, Albumin/Globulin Ratio 0.69L CBC/BMP Laboratory Tests 01/11/20 04:41 Microbiology Microbiology 01/08/20 Respiratory Virus Panel (PCR) ([facility]) - Final, Complete 01/08/20 Blood Culture - Preliminary, Resulted No Growth after 48 hours. All Specime... 01/08/20 Blood Culture - Preliminary, Resulted No Growth after 48 hours. All Specime... Walter Castorena M.D. Jan 11, 2020 13:02
--- NOTE | 2020-01-11 19:01 | IPN ---
DATE: 01/11/2020 SUBJECTIVE: The patient was seen and examined at the bedside today morning in the intensive care unit (ICU). She was dialyzed yesterday, and only after 2 hours of hemodialysis and removal of around 150 mL of her fluid, the patient started having atrial fibrillation with rapid ventricular response. She was given multiple doses of intravenous (IV) metoprolol. That helped improve her heart rate. She is still on high-flow nasal cannula at this time. She reports that her breathing is slightly better today as compared with yesterday. She continues to be on IV antibiotics and IV steroids as well. She is otherwise afebrile and hemodynamically stable and not requiring any pressors. OBJECTIVE: Vital signs: Temperature is 98.3 degrees Fahrenheit, blood pressure 133/82, pulse is 83, respiratory of 18, saturating 94% on high-flow nasal cannula with FiO2 of 40%. Intake and output: Urine output recorded yesterday was 150 mL. Ultrafiltration with hemodialysis was 250 mL. Weight done yesterday at in the bed scale was 45 kg. PHYSICAL EXAMINATION: GENERAL: The patient is awake, alert, oriented times three, lying in bed. Mild respiratory distress. HEAD AND NECK: Extraocular muscles intact. Pupils equally round and reactive to light. Mucous membranes are moist. Neck is supple. She has a dilated external jugular vein, but I could not appreciate any jugular venous distention (JVD). She has a right internal jugular (IJ) tunneled hemodialysis catheter. CARDIOVASCULAR: S1, S2, regular rate. No edema of the bilateral lower extremities. RESPIRATORY: She has mildly decreased breath sounds at the bases, otherwise no active rales or rhonchi. ABDOMEN: Soft. Positive bowel sounds. Nontender. GENITOURINARY: Bladder is not palpable. MUSCULOSKELETAL: No clubbing or cyanosis. Pulses are 2+. CENTRAL NERVOUS SYSTEM: No focal deficit. Power is 5/5 in all extremities. LABORATORY REVIEW: CBC showed a WBC of 12, hemoglobin 8, platelets are 278. BMP showed sodium 139, potassium 4.6, chloride 105, bicarbonate 28, BUN 82, creatinine is 3.8. Calcium 7.9. C-reactive protein yesterday was 17.4. ProBNP done today morning is 49,400. Albumin is 2. Myeloperoxidase antibody is pending. Microbiology: Blood cultures are pending and negative so far. IMAGING: Chest x-ray showed pulmonary edema or bilateral inflammatory infiltrates. CURRENT INPATIENT MEDICATIONS: The patient's medications were all reviewed by myself. I have started the patient on Aranesp 100 mcg intravenous (IV) with hemodialysis, Venofer 100 mg IV with hemodialysis. She continues to be on IV Levaquin. She continues to been on Solu-Medrol 125 mg IV every 12 hours, and she has received of four doses so far. She is on metoprolol 50 mg by mouth every 6 hours. ASSESSMENT AND PLAN: 1. Hypoxic respiratory failure. It is multifactorial secondary to combination of severe symptomatic anemia, end-stage renal disease, fluid overload, bilateral interstitial infiltrate concerning for pulmonary edema versus lung involvement with microscopic polyangiitis. Patient is symptomatically getting better. I will continue to treat her with IV antibiotics and steroids at the same time. She was dialyzed yesterday. Only 250 mL of fluid was removed, and she could not tolerate much dialysis after that because of atrial fibrillation. There is no urgency to do another dialysis today. I will continue to monitor her for any need of hemodialysis over the weekend. Otherwise, she will be dialyzed on Monday morning. 2. End-stage renal disease. 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 She used to be on CellCept in the past, but she stopped because of side effects. The patient is going to be dialysis dependent now, and she will need outpatient placement for dialysis. 3. Atrial fibrillation with rapid ventricular rate. The patient was given multiple doses of IV metoprolol. She is currently on oral metoprolol, and heart rate is controlled. 4. Anemia secondary to iron deficiency and end-stage renal disease. The patient has been started on IV Venofer and Aranesp. Hemoglobin level is 8, which is optimal. Transfuse as needed for hemoglobin below 8, but I would have a high threshold to transfuse this patient because of shortness of breath. 5. History of microscopic polyangiitis. The patient has bilateral infiltrates on the chest x-ray. She is currently getting Solu-Medrol 125 mg IV every 12 hours. Clinically she is improving. There is no urgent need to do plasmapheresis given elevated cRP, but at the same time she had elevated procalcitonin levels concerning for infection. She is being empirically treated with IV Levaquin. White cell count is improving. I am hesitant to give Rituxan or cyclophosphamide to this patient who is elderly and has high likelihood of pneumonia as well; however, once the patient's infection is treated, I would probably give this patient Rituxan as an outpatient. 6. Secondary hyperparathyroidism. Continue current dose of calcitriol 0.25 mcg by mouth daily. Total critical care time spent in the management of this patient today morning in the ICU was 45 minutes, excluding all the procedures. MTDD
[2020-01-12] VITALS (20 sets, daily range): BP systolic 154–188; BP diastolic 84–100; O2SAT 91–100
[2020-01-12] MEDS: METOPROLOL TART 50 MG TAB PO SCH ×3 (00:42→12:00)
[2020-01-12] MEDS: HEPARIN SOD (PORCINE) 5000 UNITS/ML VIAL (J1644 PER 1000UNITS) SQ SCH ×2 (06:00→16:48)
[2020-01-12 07:26] LABS: HEMATOCRIT 25.6 % (36.0-47.0); HEMOGLOBIN 8.5 g/dl (12.0-15.5); MEAN CORPUSCULAR HEMOGLOBIN 28.1 pg (27.0-33.0); MEAN CORPUSCULAR HGB CONC 33.2 g/dl (32.0-36.5); MEAN CORPUSCULAR VOLUME 84.5 fl (80.0-96.0); PLATELET COUNT, AUTOMATED 250 10^3/uL (150-450); RED BLOOD COUNT 3.03 10^6/uL (4.00-5.40); WHITE BLOOD COUNT 13.9 10^3/uL (4.0-10.0)
--- NOTE | 2020-01-12 07:42 | REP ---
Clinical: Shortness of breath. History of end-stage renal disease. Comparison: 01/10/2020. Findings: Double-lumen central venous catheter with tip in the SVC/right atrium. The cardiac silhouette is within normal limits and stable. Lung alvarado demonstrate chronic changes along with suspected perihilar interstitial infiltrates suggesting interstitial edema but appear improved as compared to prior examination. No focal consolidation. No obvious effusion. No pneumothorax. Skeletal structures stable. Impression: Perihilar and interstitial infiltrates appear improved as compared to prior examination. No obvious new acute process identified. Electronically Signed by Driss Richardson MD 01/12/2020 07:33 A
--- NOTE | 2020-01-12 07:48 | ECHO ---
DATE OF PROCEDURE: 01/11/2020 REFERRING PROVIDER: Dr. Jose Cassidy LOCATION: Room 3207 REASON FOR THE STUDY: Abnormal EKG. 2D MEASUREMENTS: IVS: 1.0 cm LV: 5.0 cm LVPW: 1.0 cm LA: 3.7 cm Aorta: 2.8 cm IVC: 1.4 cm DOPPLER MEASUREMENTS: Peak velocity across the aortic valve: 2.2 meters per second Peak velocity across the LVOT: 0.86 meters per second Peak gradient across the aortic valve: 20 mmHg Mean gradient across the aortic valve: 1 mmHg Mitral E: 0.61, Mitral A: 0.76 with a ratio of 0.8 Maximum tricuspid valve velocity: 3.0 meters per second 2D COMMENTS: 1. Normal left ventricular size and wall thickness with low normal global left ventricular systolic function. The estimated left ventricular systolic ejection fraction is 50-55%. 2. By volume measurements and subjectively, the left atrium is enlarged. Normal right atrium and right ventricle. 3. The atrial septum appeared to be normal without evidence of defect or shunt. 4. Normal aortic root. 5. Trace pericardial effusion noted. Both right and left pleural effusions also noted. 6. Mildly calcified aortic valve with mildly restricted leaflet motion. Mildly calcified mitral annulus with normal anterior mitral valve leaflet motion. Normal tricuspid valve and pulmonic valve. The proximal pulmonary artery branches were not well visualized. 7. The inferior vena cava was normal in size, central venous pressure is most likely normal. DOPPLER: It detects mild aortic regurgitation, mild mitral regurgitation, moderate tricuspid regurgitation, and trace to mild tricuspid regurgitation. The calculated pulmonary artery systolic pressure varies between 40-50 mmHg. Abnormal relaxation pattern was noted across the mitral valve leaflets as well as the mitral valve annulus consistent with features of grade 1 left ventricular diastolic dysfunction. IMPRESSION: 1. Low normal global left ventricular systolic function estimated at 50-55%. There are some features of left ventricular diastolic dysfunction manifested by abnormal relaxation. Calculated left ventricular ejection fraction (LVEF) by Hansen's protocol was reported to be 48%. 2. Aortic valve sclerosis with mild aortic stenosis and mild aortic regurgitation. 3. Mitral annulus calcification with mild mitral regurgitation and dilated left atrium. 4. Moderate tricuspid regurgitation with moderate pulmonary hypertension. 5. Trace to mild pulmonic regurgitation. 6. Trace pericardial effusion, no evidence of cardiac tamponade. 7. Both left and right pleural effusions noted. 8. Global longitudinal strain/GLS was below the cut off reported to be 14.3%, putting the patient at a higher risk to develop heart failure in the future. MTDD
[2020-01-12 08:02] LABS: ALBUMIN 2.2 GM/DL (3.2-5.2); BILIRUBIN,TOTAL 0.5 MG/DL (0.2-1.0); CALCIUM LEVEL 8.4 MG/DL (8.8-10.2); CREATININE FOR GFR 5.13 MG/DL (0.55-1.30); GLOMERULAR FILTRATION RATE 8.7 (>39); MAGNESIUM LEVEL 2.5 MG/DL (1.8-2.4); POTASSIUM SERUM 4.7 MEQ/L (3.5-5.1); TOTAL PROTEIN 5.6 GM/DL (6.4-8.2)
[2020-01-12] MEDS: METOPROLOL SUCC (TopROL XL) 100MG *XL* TAB PO SCH ×2 (09:00→17:37)
[2020-01-12] MEDS: MULTIVITAMINS/MINERALS THERAP 1 TAB PO SCH (09:24)
[2020-01-12] MEDS: CALCITRIOL 0.25 MCG CAP (S0169) PO SCH (09:24)
[2020-01-12] MEDS: methylPREDNISolone INJ 125 MG/2 ML VIAL (J2930) IV SCH (09:24)
--- NOTE | 2020-01-12 14:13 | IPN ---
DATE OF SERVICE: 01/12/2020 SUBJECTIVE: The patient was seen and examined at the bedside today morning. The patient's room was changed. She is downgraded out of intensive care unit (ICU) to progressive care unit (PCU). I was told by the nursing the patient was slightly agitated. However, the patient is otherwise hemodynamically stable. Her oxygen requirements are down. She is only requiring 2 liters of oxygen via nasal cannula. Her shortness of breath is getting better. Repeat chest x-ray done today showed that there was improvement in the bilateral interstitial infiltrates. She continues to be on intravenous (IV) antibiotics and IV Solu-Medrol as of today morning. OBJECTIVE: Vital signs: Temperature is 97.9 degrees Fahrenheit, blood pressure 154/84, pulse is 82, respiratory rate of 18, saturating 93% on nasal cannula at 2 liters. Intake and output: There is no urine output recorded. Weight in the bed scale is 45.3 kg. PHYSICAL EXAM: General: The patient is awake, alert, oriented times two, laying in the bed in no apparent distress. Head and neck exam: Extraocular muscles intact. Pupils equally round and reactive to light. The patient has dry mucous membranes. Neck is supple. She has a right internal jugular (IJ) tunneled hemodialysis catheter. Cardiovascular: S1, S2, regular rate. No edema of the bilateral lower extremities. Respiratory: Mildly decreased breath sounds at the bases, otherwise, no rales or rhonchi. Abdomen: Soft, positive bowel sounds. Nontender. Musculoskeletal: No clubbing or cyanosis. Pulses are 2+. POULTRY VACCINATOR: The patient is oriented times two. Power is 5/5 in all extremities. LAB REVIEW: CBC showed WBC 13.9, hemoglobin 8.5, platelets are 250. BMP showed sodium 138, potassium 4.7, chloride 104, bicarb 23, BUN 135, creatinine is 5.1, magnesium 2.5, albumin is 2.2. IMAGING: Chest x-ray done today morning showed perihilar and interstitial infiltrate. Infiltrates appear improved as compared with prior study. CURRENT INPATIENT MEDICATIONS: The patient's medications were all reviewed by myself. She continues to be on Levaquin 500 mg IV 48 hourly. I have stopped Solu-Medrol because she has received six doses so far, and I have started on prednisone 30 mg by mouth twice a day. ASSESSMENT/PLAN: 1. Hypoxemia. It is secondary to combination of pneumonia involvement of the lung with microscopic polyangiitis and end-stage renal disease. Patient is symptomatically better. Chest x-rays are also showing improvement. Continue the antibiotics and steroids at this time. No urgent need of hemodialysis and fluid removal. 2. End-stage renal disease. The patient's BUN is rising, most likely because of use of high-dose steroids, otherwise, electrolytes are within the acceptable range. The patient will be dialyzed tomorrow morning. 3. Atrial fibrillation. Heart rate is controlled at this time. The patient is currently on metoprolol 50 mg by mouth every 6 hourly. 4. Anemia secondary to end-stage renal disease and iron deficiency. The patient is already started on Venofer and Aranesp with dialysis. Hemoglobin level is slowly improving. No need of blood transfusion at this time. 5. Microscopic polyangiitis with possible pulmonary involvement and history of end-stage renal disease with microscopic polyangiitis. The patient's repeat chest x-ray showing improvement. She got six doses of IV Solu-Medrol. I have switched her to prednisone 30 mg by mouth twice a day. Repeat procalcitonin level is pending. Continue to treat the patient as pneumonia. Rituxan will be given as outpatient.
[2020-01-12] MEDS ORDERED: HALOPERIDOL 5 MG/ML VIAL (J1630) IV PRN (14:30)
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
[2020-01-12] MEDS ORDERED: SLF 3 ML SYR IV PRN (17:30)
[2020-01-12] MEDS: SLF 3 ML SYR IV SCH (20:41)
[2020-01-12] MEDS: predniSONE 10 MG TAB PO SCH (20:41)
[2020-01-13] VITALS (15 sets, daily range): BP systolic 164–196; BP diastolic 84–104; O2SAT 97–100
[2020-01-13 03:57] LABS: HEMATOCRIT 25.5 % (36.0-47.0); HEMOGLOBIN 8.3 g/dl (12.0-15.5); MEAN CORPUSCULAR HEMOGLOBIN 27.9 pg (27.0-33.0); MEAN CORPUSCULAR HGB CONC 32.5 g/dl (32.0-36.5); MEAN CORPUSCULAR VOLUME 85.9 fl (80.0-96.0); PLATELET COUNT, AUTOMATED 210 10^3/uL (150-450); RED BLOOD COUNT 2.97 10^6/uL (4.00-5.40); WHITE BLOOD COUNT 13.3 10^3/uL (4.0-10.0)
[2020-01-13] MEDS: HEPARIN SOD (PORCINE) 5000 UNITS/ML VIAL (J1644 PER 1000UNITS) SQ SCH ×2 (06:03→16:46)
[2020-01-13] MEDS: SLF 3 ML SYR IV SCH ×3 (06:04→20:05)
[2020-01-13 08:45] LABS: ALBUMIN 2.1 GM/DL (3.2-5.2); CALCIUM LEVEL 7.9 MG/DL (8.8-10.2); CREATININE FOR GFR 5.65 MG/DL (0.55-1.30); GLOMERULAR FILTRATION RATE 7.7 (>39); MAGNESIUM LEVEL 2.6 MG/DL (1.8-2.4); POTASSIUM SERUM 5.1 MEQ/L (3.5-5.1)
[2020-01-13] MEDS: predniSONE 10 MG TAB PO SCH (09:00)
[2020-01-13] MEDS: LevoFLOXacin 500 MG TABLET PO SCH (09:27)
[2020-01-13] MEDS: CALCITRIOL 0.25 MCG CAP (S0169) PO SCH (09:28)
[2020-01-13] MEDS: MULTIVITAMINS/MINERALS THERAP 1 TAB PO SCH (09:28)
[2020-01-13] MEDS ORDERED: HEPARIN 1,000 UNITS/ML 10ML VIAL (FOR RADIOLOGY& DIALYSIS ONLY)(J1644-10) IV ONE (11:15)
[2020-01-13] MEDS ORDERED: HEPARIN 1,000 UNITS/ML 10ML VIAL (FOR RADIOLOGY& DIALYSIS ONLY)(J1644-10) XX ONE (11:15)
[2020-01-13] MEDS ORDERED: HALOPERIDOL 5 MG/ML VIAL (J1630) IV PRN (11:15)
--- NOTE | 2020-01-13 12:17 | IPN ---
DATE: 01/13/2020 SUBJECTIVE: Patient was seen and examined at the bedside today morning. Last 24-hour events were noted. The patient was agitated because of steroid induced psychosis yesterday. She needed one dose of Haldol 1 mg IV. She reports that she is feeling better. She is currently switched to oral steroids now. Today is the patient's day of dialysis as well. She denies any active complaints at this time. OBJECTIVE: Vital signs: Temperature is 96.9 degrees Fahrenheit, blood pressure 180/98. Pulse is 74, respiratory of 18, saturating 94% on nasal cannula at 2 liters. Intake and output: Urine output recorded is 400 mL since overnight. Weight on the bed scale is 44.6 kg. PHYSICAL EXAMINATION: GENERAL: The patient is awake, alert, oriented times two, laying in bed in no apparent distress. HEAD AND NECK EXAM: Extraocular muscles intact. Pupils equally round and reactive to light. Mucous membranes are moist. Neck is supple. She has a right IJ tunneled hemodialysis catheter. CARDIOVASCULAR: S1, S2 regular rate. No edema of the bilateral lower extremities. RESPIRATORY: Chest is clear to auscultation bilaterally. Bilateral equal air entry. No rales or rhonchi. ABDOMEN: Soft, positive bowel sounds. Nontender. No organomegaly. MUSCULOSKELETAL: No clubbing or cyanosis. Pulses are 2+. SACK FILLER: Patient is oriented times two, otherwise she follows commands and moves extremities. LABORATORY REVIEW: CBC showed WBC 13.3, hemoglobin 8.3, platelets of 110. BMP showed sodium 140, potassium 5.1, chloride 106, bicarb 23, BUN 149, creatinine is 5.6, calcium 7.9, phosphorus is 6, magnesium 2.6. CURRENT INPATIENT MEDICATIONS: The patient's medications were all reviewed by myself. She was on Haldol. I have decreased the Haldol dose to 0.5 mg IV q. 6 hours p.r.n. for agitation. Metoprolol dose has been changed to 200 mg p.o. daily, off her Toprol XL. I have decreased the prednisone dose to 20 mg p.o. twice a day. ASSESSMENT/PLAN: 1. End-stage renal disease. The patient will be dialyzed again today for 3 hours and I will try to remove 500 mL to 1 liter of fluid as tolerated by her blood pressure. 2. Anemia in end-stage renal disease. The patient is going to get Aranesp and Venofer with dialysis. No need of blood transfusion. 3. Hypertension with end-stage renal disease. Blood pressure is elevated because of renal failure and use of high-dose steroids. Steroid dose has been decreased. Metoprolol has been changed to 200 mg p.o. daily. Fluid removal with dialysis would also help improve blood pressure. 4. Atrial fibrillation. Heart rate is controlled with metoprolol at this time. 5. Microscopic polyangiitis with possible pulmonary involvement. As mentioned above, her IV steroids have been changed to prednisone. Since she only weighs 44 kg, I have changed the steroid dose to prednisone of 20 mg p.o. twice a day. 6. GI prophylaxis. The patient is on high dose steroids. I am going to start the patient on Protonix. 6. Hyperphosphatemia, secondary to renal failure. I have hope that the phosphorus level would get better just with regular dialysis. If phosphorus level stays high I would start the patient on phosphorus binder.
--- NOTE | 2020-01-13 12:41 | IPNPDOC ---
Subjective Date Seen The patient was seen on 01/13/20. Subjective Chief Complaint/HPI I saw Ms. Ocampo in dialysis today. She was tolerating the procedure well. She had refused her metoprolol succinate earlier; but nephrology was happy with this because apparently she had some blood pressure instability at one of her previous dialysis sessions. I asked the floor nursing to make sure she gets her medication if her blood pressure is elevated when she returns from dialysis. Pulmonary: Denies: Dyspnea, Cough Cardiovascular: Denies: Chest Pain, Palpitations Objective Physical Examination General Exam: Positive: Alert (confused), Cooperative, No Acute Distress (resting comfortably in her bed when I entered the dialysis bay) Eye Exam: Negative: Sclera icteric ENT Exam: Negative: Mucous membr. moist/pink (slightly dry, not cracked or wrinkled) Neck Exam: Negative: JVD, Lymphadenopathy Chest Exam: Positive: Clear to auscultation, Normal air movement Heart Exam: Positive: Rate Normal, Regular Rhythm, Normal S1, Normal S2; Negative: Gallops (noted today) Telemetry: Positive: Sinus Abdomen Exam: Positive: Normal bowel sounds, Soft; Negative: Tenderness Extremity Exam: Negative: Edema Psych Exam: Positive: Mood NL Assessment /Plan Problems (1) Paroxysmal atrial fibrillation Status: Chronic Problem Text: 01/13/20 - she didn't take the metoprolol yet this morning. We'll continue to monitor her blood pressure after dialysis. 01/12/20 - I made the switch to metoprolol succinate today. Since she is refusing her medications sometimes, I think it makes sense to have a once daily medication to help control her rate. No recurrence on met tar 50 q6H (plan convert to met succ) HD met tar 25 BID 01/10/20 1015 during HD p ~600 cc off-AF RVR to 160s s mild dyspnea/N; therefore, IV met 5 x 3 and increased met tar to 50 q6H, held amlo c conversion to SR 01/09 TSH/FT4 0.5/1.4 01/10 T-I 0.1 01/10 TTE P 06/2012 TTE Damaso: [id number], grade 1 valentin dys, mod TR, mild PHTN (2) ESRD (end stage renal disease) Status: Chronic Response to Treatment: Worse Problem Text: She is under the care of nephrology and is receiving hemodialysis. Appreciate their input. 01/10 82/3.8, 4.6 01/09 75/4.4, 4.5, removed ~250, then stopped p AF RVR 01/08 px now consenting to HD, Perma-Cath placed sp HD -1L (3) Delirium due to multiple etiologies Status: Acute Response to Treatment: Improving Discussed With: Nurse, Patient Problem Specific Plan: Monitor Clinically Problem Text: Her delirium is a improved from yesterday, but she is not fully intact. Suspect this is a combination of hospital/ICU delirium in conjunction with worsening uremia. At this point she is not posing a threat to herself or others. I have asked the nursing staff to try to keep reorienting her and to get her to take her medications as soon as possible. (4) Hypertension Status: Chronic Problem Text: Her blood pressure is not well controlled today, but she's hasn't taken her metoprolol yet. We'll need to monitor her pressures after she returns from dialysis. HD amlo 5, met tar 25 BID (5) Respiratory failure with hypoxia Status: Resolved Problem Text: She is currently stable on 2 L via nasal cannula. 2 pulmonary edema/B PN +/- MPA flare 01/10 20%/40 01/09 decreased O2 requirement c HD to HF 30/65% from 40/100% (6) Bilateral pneumonia Status: Acute Response to Treatment: Stable Problem Text: She is getting levofloxacin with hemodialysis. This is roughly every two days. I requested a total of four doses which should be eight days of therapy. 01/07 procalcitonin 2.5 01/07 -RP 01/07 BCX2 NG 01/07 CT chest: 1. Mild right and minimal left pleural effusions. 2. Moderate bilateral pulmonary infiltrates with areas of consolidation, greatest in the upper lobes with minimal scattered fibro-atelectatic change and interstitial prominence. 3. Mild cardiomegaly with trace pericardial fluid in superior recesses. (7) Microscopic polyangiitis Status: Chronic Problem Text: c 2 ESRD +/- pulmonary infiltrates 01/09 ANCA Ab P 01/09 CRP/ESR 17/60-not cw systemic vasculitis flare (8) Anemia in stage 4 chronic kidney disease Status: Chronic Problem Text: 2 CKD, Fe def, +/- MPA 01/10 8 01/09 8.6 01/08 8.8 01/07 5.5-tx 2u (9) Physical deconditioning Status: Chronic Problem Text: PT NS for dc home Plan/VTE VTE Prophylaxis Ordered?: Yes (SQ heparin) VS, I&O, 24H, Fishbone Vital Signs/I&O Vital Signs Date Time Temp Pulse Resp B/P (MAP) Pulse Ox O2 Delivery O2 Flow Rate FiO2 01/13/20 08:00 96.9 74 18 180/98 (125) 94 Nasal Cannula 2.0 01/11/20 12:38 40 I&O- Last 24 Hours up to 6 AM 01/13/20 06:00 Intake Total 390 ml Output Total 350 ml Balance 40 ml Laboratory Data 24H LABS Laboratory Tests 2 01/13/20 03:47: Nucleated Red Blood Cells % (auto) 0.2H, Anion Gap 11, Glomerular Filtration Rate 7.7L, Calcium Level 7.9L, Phosphorus Level 6.0#H, Magnesium Level 2.6H, Albumin 2.1L CBC/BMP Laboratory Tests 01/13/20 03:47 Microbiology Microbiology 01/08/20 Respiratory Virus Panel (PCR) ([facility]) - Final, Complete 01/08/20 Blood Culture - Preliminary, Resulted No Growth after 72 hours. All specime... 01/08/20 Blood Culture - Preliminary, Resulted No Growth after 72 hours. All specime... Joe Herrera MD Jan 13, 2020 12:41 pm
[2020-01-13] MEDS: METOPROLOL SUCC (TopROL XL) 100MG *XL* TAB PO SCH (16:45)
[2020-01-13] MEDS: PANTOPRAZOLE 40MG TAB (PROTONIX) PO SCH (16:45)
[2020-01-13] MEDS: predniSONE 20 MG TAB PO SCH (20:05)
[2020-01-13] MEDS ORDERED: amLODIPine 10 MG TAB PO ONE (22:00)
[2020-01-14] VITALS (23 sets, daily range): BP systolic 134–154; BP diastolic 71–86; O2SAT 93–100
[2020-01-14 05:22] LABS: HEMOGLOBIN 8.5 g/dl (12.0-15.5); MEAN CORPUSCULAR HGB CONC 32.7 g/dl (32.0-36.5); MEAN CORPUSCULAR VOLUME 85.5 fl (80.0-96.0); PLATELET COUNT, AUTOMATED 184 10^3/uL (150-450); RED BLOOD COUNT 3.04 10^6/uL (4.00-5.40); WHITE BLOOD COUNT 8.7 10^3/uL (4.0-10.0)
[2020-01-14] MEDS: SLF 3 ML SYR IV SCH ×3 (05:33→20:19)
[2020-01-14] MEDS: HEPARIN SOD (PORCINE) 5000 UNITS/ML VIAL (J1644 PER 1000UNITS) SQ SCH ×2 (05:33→17:19)
[2020-01-14 05:40] LABS: CALCIUM LEVEL 7.4 MG/DL (8.8-10.2); CREATININE FOR GFR 3.32 MG/DL (0.55-1.30); GLOMERULAR FILTRATION RATE 14.3 (>39); PHOSPHORUS LEVEL 5.2 MG/DL (2.5-4.9); POTASSIUM SERUM 4.6 MEQ/L (3.5-5.1)
[2020-01-14] MEDS: PANTOPRAZOLE 40MG TAB (PROTONIX) PO SCH (08:23)
[2020-01-14] MEDS: METOPROLOL SUCC (TopROL XL) 100MG *XL* TAB PO SCH (08:23)
[2020-01-14] MEDS: CALCITRIOL 0.25 MCG CAP (S0169) PO SCH (08:23)
[2020-01-14] MEDS: MULTIVITAMINS/MINERALS THERAP 1 TAB PO SCH (08:23)
[2020-01-14] MEDS: predniSONE 20 MG TAB PO SCH ×2 (08:24→20:18)
--- NOTE | 2020-01-14 12:22 | IPN ---
DATE OF SERVICE: 01/14/2020 SUBJECTIVE: The patient was seen and examined at the bedside today morning. Patient is much more awake and alert today. She was dialyzed yesterday. She tolerated the hemodialysis procedure well, 1 liter of fluid was removed. She reports that her shortness of breath is getting better. Her steroids were further tapered down to prednisone a total dose of 40 mg daily. Her nasal cannula oxygen is being weaned off. OBJECTIVE: Vital Signs: Temperature is 97.1 degrees Fahrenheit, blood pressure 134/71, pulse is 79, respiratory rate of 18, saturating 95% on room air. Intake and Output: Urine output recorded is 250 mL. Weight in the bed scale is 42.1 kg. Ultrafiltration with hemodialysis was 1 liter. PHYSICAL EXAMINATION: General: The patient is awake, alert, oriented times three, laying in bed in no apparent distress. Head and Neck Exam: Extraocular muscles intact. Pupils equally round and reactive to light. Mucous membranes are moist. Neck is supple. There is no jugular venous distention (JVD). She has a right internal jugular (IJ) tunneled hemodialysis catheter. Cardiovascular: S1, S2, regular rate. No edema of the bilateral lower extremities. Respiratory: Chest is clear to auscultation bilaterally. Bilateral equal air entry. No rales or rhonchi. Abdomen: Soft. Positive bowel sounds. Nontender. No organomegaly. Musculoskeletal: No clubbing or cyanosis. Pulses are 2+. IT APPLICATION SUPPORT ANALYST: She is oriented x3, laying in bed, in no apparent distress. LAB REVIEW: CBC showed a WBC of 8.7, hemoglobin 8.5 and platelets are 184. BMP showed sodium 140, potassium 4.6, chloride 104, bicarb 30, BUN 70, creatinine is 3.3, phosphorus 5.2, magnesium is 2. CURRENT INPATIENT MEDICATIONS: The patient's medications were all reviewed by myself. Her Levaquin last dose will be tomorrow. She continues to be on metoprolol XL 100 mg by mouth daily. Prednisone was changed to 20 mg by mouth twice a day. ASSESSMENT/PLAN: 1. End-stage renal disease. The patient was dialyzed yesterday. Next hemodialysis session will be tomorrow. Volume status is optimal. 2. Anemia in end-stage renal disease. Continue Venofer and Aranesp. Hemoglobin level is stable and improving. 3. Bilateral pneumonitis. The patient is currently on Levaquin. Procalcitonin level that was done 2 days ago is still high. However, clinically the patient is improving. 4. Hypertension with end-stage renal disease and it is secondary to combination of renal failure and high dose steroids. 1 liter of fluid was removed yesterday. Blood pressure is significantly better. Continue current dose of metoprolol XL 200 mg by mouth daily. 5. Atrial fibrillation. The patient just had one episode of atrial fibrillation with dialysis over the weekend. Heart rate is controlled now. Continue metoprolol. 6. Microscopic polyangiitis with history of renal failure and now possible pulmonary involvement. The patient was given pulse steroids for 3 days. Currently, she is on prednisone 20 mg by mouth twice a day. Clinically, she is improving and she is not requiring supplemental oxygen now. Oxygen is being weaned off. 7. Hyperphosphatemia. Phosphorus level is improving with dialysis. No need of her phosphorus binders at this time.
[2020-01-14] MEDS ORDERED: AMIODARONE HCL 150 MG in IV 1 EA IV STA (12:36)
--- NOTE | 2020-01-14 15:39 | IPNPDOC ---
Subjective Date Seen The patient was seen on 01/14/20. Subjective Chief Complaint/HPI Ms. Ocampo reports she feels well today and she would really like to go home if she could. Nurses report that her mentation has been much improved. She is taking her medications without difficulty in the morning. Blood pressure and heart rate have been well controlled throughout the day. General: Reports: Normal Appetite Constitutional: Denies: Chills, Fever Pulmonary: Reports: Dyspnea (improving); Denies: Cough Cardiovascular: Denies: Chest Pain, Palpitations Psych: Reports: Mood Normal Objective Physical Examination General Exam: Positive: Alert, Cooperative (sitting in her reclining chair when I entered the room), No Acute Distress Eye Exam: Negative: Sclera icteric ENT Exam: Positive: Mucous membr. moist/pink Neck Exam: Negative: JVD, Lymphadenopathy Chest Exam: Positive: Clear to auscultation, Normal air movement Heart Exam: Positive: Rate Normal, Regular Rhythm, Normal S1, Normal S2; Negative: Gallops Telemetry: Positive: Sinus Abdomen Exam: Positive: Normal bowel sounds, Soft; Negative: Tenderness Extremity Exam: Negative: Edema Psych Exam: Positive: Mood NL Assessment /Plan Problems (1) Paroxysmal atrial fibrillation Status: Chronic Problem Text: 01/13 - she took her metoprolol and her blood pressure and heart rate have been well controlled today. Continue current regimen, monitor. 01/13/20 - she didn't take the metoprolol yet this morning. We'll continue to m onitor her blood pressure after dialysis. 01/12/20 - I made the switch to metoprolol succinate today. Since she is refusing her medications sometimes, I think it makes sense to have a once daily medic ation to help control her rate. No recurrence on met tar 50 q6H (plan convert to met succ) HD met tar 25 BID 01/10/20 1015 during HD p ~600 cc off-AF RVR to 160s s mild dyspnea/N; therefore, IV met 5 x 3 and increased met tar to 50 q6H, held amlo c conversion to SR 01/09 TSH/FT4 0.5/1.4 01/10 T-I 0.1 01/10 TTE P 06/2012 TTE Damaso: [id number], grade 1 valentin dys, mod TR, mild PHTN (2) ESRD (end stage renal disease) Status: Chronic Response to Treatment: Worse Problem Text: She is under the care of nephrology and is receiving hemodialysis. She is due again tomorrow. Appreciate their input. 01/10 82/3.8, 4.6 01/09 75/4.4, 4.5, removed ~250, then stopped p AF RVR 01/08 px now consenting to HD, Perma-Cath placed sp HD -1L (3) Delirium due to multiple etiologies Status: Acute Response to Treatment: Improving Discussed With: Nurse, Patient Problem Specific Plan: Monitor Clinically Problem Text: Her delirium is a improved from yesterday, and she seems that she may be at or close to baseline. This is a good prognostic indicator. (4) Hypertension Status: Chronic Problem Text: Her blood pressure is well controlled today. Continue current regimen, monitor. (Home regimen was amlodipine 5 mg of metoprolol tartrate 25 mg by mouth twice a day.) (5) Bilateral pneumonia Status: Acute Response to Treatment: Stable Problem Text: She is getting levofloxacin with hemodialysis. This is roughly every two days. I requested a total of four doses which should be eight days of therapy. 01/07 procalcitonin 2.5 01/07 -RP 01/07 BCX2 NG 01/07 CT chest: 1. Mild right and minimal left pleural effusions. 2. Moderate bilateral pulmonary infiltrates with areas of consolidation, greatest in the upper lobes with minimal scattered fibro-atelectatic change and interstitial prominence. 3. Mild cardiomegaly with trace pericardial fluid in superior recesses. (6) Anemia in end-stage renal disease Status: Chronic Problem Text: She is currently getting Aranesp and Venofer during her dialysis treatments as appropriate. 2/2 CKD, Fe def, +/- MPA 01/10 8 01/09 8.6 01/08 8.8 01/07 5.5-tx 2u (7) Microscopic polyangiitis Status: Chronic Problem Text: c 2 ESRD +/- pulmonary infiltrates 01/09 ANCA Ab P 01/09 CRP/ESR -not cw systemic vasculitis flare (8) Physical deconditioning Status: Chronic Problem Text: Currently safe only for rehabilitation. Estimated discharge is around 01/16/20 this time. The patient would very much like to go home. We will have to see how much improvement she can make with better mentation now that she is getting dialysis. (9) Respiratory failure with hypoxia Status: Resolved Problem Text: She is currently stable on room air. 2 pulmonary edema/B PN +/- MPA flare 01/10 20%/40 01/09 decreased O2 requirement c HD to HF 30/65% from 40/100% Plan/VTE VTE Prophylaxis Ordered?: Yes (SQ heparin) VS, I&O, 24H, Fishbone Vital Signs/I&O Vital Signs Date Time Temp Pulse Resp B/P (MAP) Pulse Ox O2 Delivery O2 Flow Rate FiO2 01/14/20 11:32 97.1 79 18 134/71 (92) 95 Room Air 01/14/20 10:00 1.0 01/11/20 12:38 40 I&O- Last 24 Hours up to 6 AM 01/14/20 05:59 Intake Total 680 ml Output Total 2000 ml Balance -1320 ml Laboratory Data 24H LABS Laboratory Tests 2 01/14/20 05:02: Nucleated Red Blood Cells % (auto) 0.0, Anion Gap 6L, Glomerular Filtration Rate 14.3L, Calcium Level 7.4L, Phosphorus Level 5.2H, Magnesium Level 2.0, Albumin 2.0L CBC/BMP Laboratory Tests 01/14/20 05:02 Microbiology Microbiology 01/08/20 Respiratory Virus Panel (PCR) ([facility]) - Final, Complete 01/08/20 Blood Culture - Final, Complete NO GROWTH AFTER 5 DAYS 01/08/20 Blood Culture - Final, Complete NO GROWTH AFTER 5 DAYS Joe Herrera MD Jan 14, 2020 15:39
[2020-01-15] VITALS (21 sets, daily range): BP systolic 152–200; BP diastolic 82–110; O2SAT 92–99
[2020-01-15] MEDS: SLF 3 ML SYR IV SCH ×3 (05:13→21:47)
[2020-01-15] MEDS: HEPARIN SOD (PORCINE) 5000 UNITS/ML VIAL (J1644 PER 1000UNITS) SQ SCH ×2 (05:13→17:09)
[2020-01-15 05:23] LABS: HEMATOCRIT 25.8 % (36.0-47.0); HEMOGLOBIN 8.3 g/dl (12.0-15.5); MEAN CORPUSCULAR HEMOGLOBIN 27.5 pg (27.0-33.0); MEAN CORPUSCULAR HGB CONC 32.2 g/dl (32.0-36.5); MEAN CORPUSCULAR VOLUME 85.4 fl (80.0-96.0); PLATELET COUNT, AUTOMATED 175 10^3/uL (150-450); RED BLOOD COUNT 3.02 10^6/uL (4.00-5.40); WHITE BLOOD COUNT 9.8 10^3/uL (4.0-10.0)
[2020-01-15 05:41] LABS: ALBUMIN 2.2 GM/DL (3.2-5.2); CALCIUM LEVEL 8.2 MG/DL (8.8-10.2); CREATININE FOR GFR 4.25 MG/DL (0.55-1.30); GLOMERULAR FILTRATION RATE 10.7 (>39); MAGNESIUM LEVEL 2.2 MG/DL (1.8-2.4); PHOSPHORUS LEVEL 5.4 MG/DL (2.5-4.9); POTASSIUM SERUM 5.2 MEQ/L (3.5-5.1)
[2020-01-15] MEDS ORDERED: HEPARIN 1,000 UNITS/ML 10ML VIAL (FOR RADIOLOGY& DIALYSIS ONLY)(J1644-10) XX ONE (10:15)
[2020-01-15] MEDS ORDERED: HEPARIN 1,000 UNITS/ML 10ML VIAL (FOR RADIOLOGY& DIALYSIS ONLY)(J1644-10) IV ONE (10:15)
--- NOTE | 2020-01-15 11:21 | IPN ---
DATE OF SERVICE: 01/15/2020 SUBJECTIVE: The patient was seen and examined at the bedside today morning during hemodialysis procedure. She is tolerating hemodialysis procedure well. She denies any shortness of breath. She is much more awake, alert, and oriented at this time. OBJECTIVE: Vital signs: Temperature is 97.8 degrees Fahrenheit, blood pressure 152/86, pulse is 70, respiratory rate of 18, saturating 97% on room air. Intake and output: Urine output recorded is 250 mL. Weight in the bed scale is 42.7 kg. PHYSICAL EXAMINATION: General: The patient is awake, alert, oriented times three, laying in bed, getting hemodialysis done, no apparent distress. Head and neck examination: Extraocular muscles intact. Pupils equally round and reactive to light. Mucous membranes are moist. Neck is supple. There is no jugular venous distention (JVD). She has a right internal jugular (vein) (IJ) tunneled hemodialysis catheter. Cardiovascular: S1, S2, regular rate. No edema of the bilateral lower extremities. Respiratory: Chest is clear to auscultation bilaterally. Bilateral equal air entry. No rales or rhonchi. Abdomen: Soft, positive bowel sounds. Nontender. No organomegaly. Musculoskeletal: No clubbing or cyanosis. Pulses are 2+. Central nervous system (EV[employer]): No focal deficit. Power is 5/5 in all extremities. LABORATORY REVIEW: Complete blood count (CBC) showed a WBC 9.8, hemoglobin 8.3, platelets are 175. Basic metabolic profile (BMP) showed sodium 140, potassium 5.2, chloride 105, bicarbonate 26, BUN 101, creatinine is 4.2, calcium 8.2, phosphorus is 5.4. Immunology: p-ANCA levels are positive with 1:160, which is high. CURRENT INPATIENT MEDICATIONS: The patient's medications were all reviewed by me. She has finished her Levaquin course. No other significant change in the medications today as compared with yesterday. She continues to be on prednisone 20 mg by mouth twice a day. ASSESSMENT AND PLAN: 1. End-stage renal disease. The patient is being dialyzed at this time. She is tolerating the hemodialysis procedure well. Ultrafiltration goal will be around 1 liter as tolerated by blood pressure. 2. Anemia in end-stage renal disease. Continue Venofer and Aranesp. Hemoglobin level is getting better. 3. Bilateral pneumonitis. The patient finished course of Levaquin. A repeat procalcitonin level has been ordered today, which is pending. 4. Hypertension with end-stage renal disease. Continue current dose of metoprolol XL. Fluid removal is also helping with the improvement in the blood pressure. 5. Atrial fibrillation. The patient had one episode of atrial fibrillation (AFib). Heart rate is controlled now. She continues to be on metoprolol. No anticoagulation at this time. 6. Microscopic polyangiitis. The patient's p-ANCA levels came back very high. She currently is on prednisone. A repeat chest x-ray was ordered today, which is pending.
[2020-01-15] MEDS: PANTOPRAZOLE 40MG TAB (PROTONIX) PO SCH (13:03)
[2020-01-15] MEDS: CALCITRIOL 0.25 MCG CAP (S0169) PO SCH (13:04)
[2020-01-15] MEDS: MULTIVITAMINS/MINERALS THERAP 1 TAB PO SCH (13:04)
[2020-01-15] MEDS: predniSONE 20 MG TAB PO SCH ×2 (13:04→21:47)
[2020-01-15] MEDS: METOPROLOL SUCC (TopROL XL) 100MG *XL* TAB PO SCH (13:04)
[2020-01-15] MEDS ORDERED: LevoFLOXacin 500 MG TABLET As Ordered ONE (13:08)
[2020-01-15] MEDS: LevoFLOXacin 500 MG TABLET PO SCH (13:09)
--- NOTE | 2020-01-15 13:43 | IPNPDOC ---
Text Note Date of Service The patient was seen on 01/15/20. 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 fib (not on anticoagulation), AOCD, Vitamin D deficiency who presented to the emergency room with complains of worsening weakness, fatigue and shortness of breath. In the emergency room, patient was found to be lethargic with evidence of worsening renal failure and possible aspiration pneumonia. Patient was admitted to the family medicine service for further evaluation and treatment. Patient was seen and evaluated by nephrology who had performed urgent hemodialysis for uremia, metabolic acidosis and worsening Cr. Patient received 2 units PRBC transfusions to supplement her symptomatic anemia that was present on admission. Patient has received 3 rounds of hemodialysis and her mentation has improved. She has been continued with antibiotics for suspected aspiration pneumonia. Patient was seen and examined at the bedside. , Currently patient denies any chest pain, shortness breath or palpitations. She denies nausea, vomiting, abdominal pain, diarrhea. Patient appears energetic and has worked with physical therapy. Objective: Vitals (See below) General: Lying in bed, no acute distress, comfortable, awake, alert and oriented 3 HEENT: NC, AT CVS: +S1S2 Lungs: Fair air entry b/l, auscultations free of rhonchi, rales or wheezing Abdomen: Soft, nondistended and nontender Extremities: - Edema, - Calf tenderness Assessment and plan: s/p Acute metabolic encephalopathy - likely 2/2 uremia - Clinically is oriented to person / place / time - Reported episodes of delirium s/p Hypoxia - possibly 2/2 granulomatosis with polyangiitis, possibly 2/2 aspiration pneumonia, possibly 2/2 fluid overload 2/2 ESRD - Saturating well on room air at this time - No fevers / Hemodynamically stable - s/p Leukocytosis - CXR 01/07: Extensive bilateral perihilar infiltrates most consistent with pneumonia although pulmonary edema is a possibility. Heart is mildly prominent. - CT Chest 01/07: 1. Mild right and minimal left pleural effusions. 2. Moderate bilateral pulmonary infiltrates with areas of consolidation, greatest in the upper lobes with minimal scattered fibro-atelectatic change and interstitial prominence. 3. Mild cardiomegaly with trace pericardial fluid in superior recesses. - s/p Vancomycin; Completed therapy with Levaquin (7 days) CKD5 progressed to ESRD, now on HD - Currently patient is on on HD; has received 3 HD sessions prior - s/p metabolic acidosis - Scheduled for HD today - Will likely require continued HD as outpatient - Nephrology on consultation HTN - BP moderately elevated - c/w Metoprolol - Will consider adding Lisinopril for better BP control if remains elevated - c/w HD as scheduled Granulomatosis with polyangiitis - c/w Prednisone Paroxysmal A. fib - c/w rate control with Metoprolol; adjusted to long acting - Patient is not on full anticoagulation AOCD / Symptomatic anemia - s/p 2 units of PRBC - c/w Iron sucralose Vitamin D deficiency - Will have outpatient follow up with PCP GI prophylaxis - c/w Protonix DVT prophylaxis - c/w Heparin Disposition: - c/w PT / OT - Anticipate transition to rehabilitation VS,Fishbone, I+O VS, Fishbone, I+O Laboratory Tests 01/15/20 04:58 Vital Signs Date Time Temp Pulse Resp B/P (MAP) Pulse Ox O2 Delivery O2 Flow Rate FiO2 01/15/20 13:04 75 176/96 01/15/20 07:57 97.8 18 97 Room Air 01/14/20 10:00 1.0 01/11/20 12:38 40 I&O- Last 24 Hours up to 6 AM 01/15/20 06:00 Intake Total 960 ml Output Total 650 ml Balance 310 ml JEANETTE PUGA MD Jan 15, 2020 13:43
[2020-01-15] MEDS: hydrALAZINE INJ 20 MG/ML VIAL IV SCH ×2 (17:09→21:47)
[2020-01-16] VITALS (15 sets, daily range): BP systolic 98–143; BP diastolic 57–77; O2SAT 94–98
[2020-01-16] MEDS: HEPARIN SOD (PORCINE) 5000 UNITS/ML VIAL (J1644 PER 1000UNITS) SQ SCH (04:48)
[2020-01-16] MEDS: SLF 3 ML SYR IV SCH ×2 (04:48→14:00)
[2020-01-16] MEDS: hydrALAZINE INJ 20 MG/ML VIAL IV SCH ×2 (04:48→11:00)
[2020-01-16 07:33] LABS: BASO % 0.1 % (0.0-1.0); HEMOGLOBIN 9.3 g/dl (12.0-15.5); LYMPH # 0.5 10^3/uL (1.5-5.0); MEAN CORPUSCULAR HEMOGLOBIN 28.4 pg (27.0-33.0); MEAN CORPUSCULAR HGB CONC 33.2 g/dl (32.0-36.5); MEAN CORPUSCULAR VOLUME 85.6 fl (80.0-96.0); MONO # 0.9 10^3/uL (0.0-0.8); MONO % 8.9 % (0.0-5.0); NEUTROPHILS # 8.2 10^3/uL (1.5-8.5); NEUTROPHILS % 85.1 % (36.0-66.0); PLATELET COUNT, AUTOMATED 231 10^3/uL (150-450); RED BLOOD COUNT 3.27 10^6/uL (4.00-5.40); WHITE BLOOD COUNT 9.7 10^3/uL (4.0-10.0)
[2020-01-16 07:59] LABS: ALBUMIN 2.4 GM/DL (3.2-5.2); CALCIUM LEVEL 8.2 MG/DL (8.8-10.2); CREATININE FOR GFR 2.81 MG/DL (0.55-1.30); GLOMERULAR FILTRATION RATE 17.3 (>39); MAGNESIUM LEVEL 2.1 MG/DL (1.8-2.4); PHOSPHORUS LEVEL 4.9 MG/DL (2.5-4.9); POTASSIUM SERUM 4.4 MEQ/L (3.5-5.1)
[2020-01-16] MEDS: CALCITRIOL 0.25 MCG CAP (S0169) PO SCH (08:38)
[2020-01-16] MEDS: PANTOPRAZOLE 40MG TAB (PROTONIX) PO SCH (08:38)
[2020-01-16] MEDS: METOPROLOL SUCC (TopROL XL) 100MG *XL* TAB PO SCH (08:38)
[2020-01-16] MEDS: predniSONE 20 MG TAB PO SCH (08:38)
[2020-01-16] MEDS: MULTIVITAMINS/MINERALS THERAP 1 TAB PO SCH (08:38)
--- NOTE | 2020-01-16 11:45 | IPN ---
DATE OF SERVICE: 01/16/2020 SUBJECTIVE: The patient was seen and examined at the bedside today morning. She is afebrile, hemodynamically stable. She was dialyzed yesterday, 1 liter of fluid was removed. She denies any more shortness of breath. She is not requiring any oxygen. Her hemoglobin level is improving. Hemoglobin has improved to 9.3. Procalcitonin level latest one done is improving at 0.7 now. OBJECTIVE: Vital Signs: Temperature is 98.1 degrees Fahrenheit, blood pressure 111/70, pulse is 83, respiratory rate of 18, saturating 99% on room air. Intake and Output: Urine output recorded as 250 mL. Ultrafiltration with hemodialysis 1 liter. Weight in the bed scale is 42.6 kg. PHYSICAL EXAMINATION: General: The patient is awake, alert, oriented times three, sitting up in the sofa, in no apparent distress. Head and Neck Exam: Extraocular muscles intact. Pupils equally round and reactive to light. Mucous membranes are moist. Neck is supple. She has a right internal jugular (IJ) tunneled hemodialysis catheter. Cardiovascular: S1, S2. Regular rate. No edema of the bilateral lower extremities. Respiratory: Chest is clear to auscultation bilaterally. Bilateral equal air entry. No rales or rhonchi. Abdomen: Soft. Positive bowel sounds. Nontender. No organomegaly. Musculoskeletal: No clubbing or cyanosis. Pulses are 2+. POLICE GUARD: No focal deficit. Power is 5/5 in all extremities. LAB REVIEW: CBC showed WBC of 9.7, hemoglobin of 9.3, platelets of 231. BMP showed sodium 138, potassium 4.4, chloride 101, bicarb 26, BUN 49, creatinine is 2.8. CURRENT INPATIENT MEDICATIONS: The patient's medications were all reviewed by myself. She continues to be on prednisone 20 mg by mouth twice a day. She was started on hydralazine 10 mg IV every 6 hours for elevated blood pressures. No other change in the medications today as compared with yesterday. ASSESSMENT/PLAN: 1. End-stage renal disease. The patient was dialyzed yesterday. Electrolytes are within the acceptable range. Next hemodialysis will be tomorrow. 2. Anemia in end-stage renal disease. Hemoglobin level is improving. Continue the Aranesp and Venofer at this time. 3. Bilateral pneumonitis. The patient is status post Levaquin. White cell count is improved and procalcitonin level is also 0.7, which is better than before. 4. Hypertension with end-stage renal disease. The patient is currently on metoprolol XL. She was also started on IV hydralazine. Blood pressure levels are within the acceptable range. 5. Atrial fibrillation. The patient had one episode of atrial fibrillation during initial dialysis days. She is currently rate controlled and in sinus rhythm. 6. Microscopic polyangiitis. She is status post pulse steroids and currently on oral prednisone. Chest x-ray shows improvement. The ANCA levels are high. Rest of the management will be done as outpatient. Steroids will be tapered as outpatient once she gets discharged.
[2020-01-16] MEDS ORDERED: PRED20TA PO (12:04)
[2020-01-16] MEDS ORDERED: METO1TAB33 PO (12:04)
[2020-01-16] MEDS ORDERED: PANT40TA3 PO (12:04)
--- NOTE | 2020-01-16 12:26 | DS.PDOC ---
Discharge Summary General Date of Admission Jan 08, 2020 at 23:14 Discharge Summary PROCEDURES PERFORMED DURING STAY: [None]. ADMITTING DIAGNOSES / DISCHARGE DIAGNOSES: s/p Acute metabolic encephalopathy - likely 2/2 uremia s/p Hypoxia - possibly 2/2 granulomatosis with polyangiitis, possibly 2/2 aspiration pneumonia, possibly 2/2 fluid overload 2/2 ESRD CKD5 progressed to ESRD, now on HD HTN Granulomatosis with polyangiitis Paroxysmal A. 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 fib (not on anticoagulation), AOCD, Vitamin D deficiency who presented to the emergency room with complains of worsening weakness, fatigue and shortness of breath. In the emergency room, patient was found to be lethargic with evidence of worsening renal failure and possible aspiration pneumonia. Patient was admitted to the family medicine service for further evaluation and treatment. Patient was seen and evaluated by nephrology who had performed urgent hemodi alysis for uremia, metabolic acidosis and worsening Cr. Patient received 2 units PRBC transfusions to supplement her symptomatic anemia that was present on admission. Patient has received 3 rounds of hemodialysis and her mentation has improved. She has been continued with antibiotics for suspected aspiration pneumonia. HOSPITAL COURSE: s/p Acute metabolic encephalopathy - likely 2/2 uremia - Clinically is oriented to person / place / time - Reported episodes of delirium - Currently remains oriented and is coherent about plan to go to [facility]U for continued rehab s/p Hypoxia - possibly 2/2 granulomatosis with polyangiitis, possibly 2/2 aspiration pneumonia, possibly 2/2 fluid overload 2/2 ESRD - Saturating well on room air at this time - No fevers / Hemodynamically stable - s/p Leukocytosis - CXR 01/07: Extensive bilateral perihilar infiltrates most consistent with pneumonia although pulmonary edema is a possibility. Heart is mildly prominent. - CT Chest 01/07: 1. Mild right and minimal left pleural effusions. 2. Moderate bilateral pulmonary infiltrates with areas of consolidation, greatest in the upper lobes with minimal scattered fibro-atelectatic change and interstitial prominence. 3. Mild cardiomegaly with trace pericardial fluid in superior recesses. - s/p Vancomycin; Completed therapy with Levaquin (7 days) CKD5 progressed to ESRD, now on HD - Currently patient is on on HD; has received 4 HD sessions prior - s/p metabolic acidosis - Will be scheduled for HD tomorrow - Nephrology on consultation; appreciate their input - Case management / PFS working on establishing outpatient HD chair HTN - BP moderately elevated - c/w Metoprolol - Will DC Hydralazine - c/w HD as scheduled Granulomatosis with polyangiitis - c/w Prednisone at adjusted Paroxysmal A. fib - c/w rate control with Metoprolol; adjusted to long acting - Patient is not on full anticoagulation AOCD / Symptomatic anemia - Hg has remained stable - s/p 2 units of PRBC - c/w Iron sucralose Vitamin D deficiency - Will have outpatient follow up with PCP GI prophylaxis - c/w Protonix DVT prophylaxis - c/w Heparin DISCHARGE MEDICATIONS: Please see below. ALLERGIES: Please see below. PHYSICAL EXAMINATION ON DISCHARGE: Vitals (See below) General: Lying in bed, appears comfortable, awake, alert and oriented 3 HEENT: NC, AT CVS: +S1S2 Lungs: Air entry remains fair b/l, no rhonchi / crackles / wheezing Abdomen: Remains soft without any distension / tenderness Extremities: No evidence of edema, - Calf tenderness LABORATORY DATA: Please see below. ACTIVITY: [As tolerated]. DISCHARGE PLAN: Follow up with Dr. Lala and Dr. Tolentino upon transfer Remain compliant with treatment plan and medications Return to the ER if you experience any problems DISPOSITION: Home DISCHARGE CONDITION: [Stable]. TIME SPENT ON DISCHARGE: 35 minutes Vital Signs/I&Os Vital Signs Date Time Temp Pulse Resp B/P (MAP) Pulse Ox O2 Delivery O2 Flow Rate FiO2 01/16/20 11:39 97.0 79 18 98/57 (71) 96 Room Air 01/14/20 10:00 1.0 01/11/20 12:38 40 I&O- Last 24 Hours up to 6 AM 01/16/20 06:00 Intake Total 360 ml Output Total 1550 ml Balance -1190 ml Laboratory Data Labs 24H Laboratory Tests 2 01/15/20 14:13: Triglycerides Level 235H, Total Cholesterol 175, LDL Cholesterol 93, Non-HDL Cholesterol (LDL + VLDL) 140, Total HDL Cholesterol 35L, Cholesterol/HDL Ratio 5.000 3/26/20 07:18: Immature Granulocyte % (Auto) 0.9, Neutrophils (%) (Auto) 85.1H, Lymphocytes (%) (Auto) 5.0L, Monocytes (%) (Auto) 8.9H, Eosinophils (%) (Auto) 0.0, Basophils (%) (Auto) 0.1, Neutrophils # (Auto) 8.2, Lymphocytes # (Auto) 0.5L, Monocytes # (Auto) 0.9H, Eosinophils # (Auto) 0.0, Basophils # (Auto) 0.0, Nucleated Red Blood Cells % (auto) 0.0, Anion Gap 11, Glomerular Filtration Rate 17.3L, Calcium Level 8.2L, Phosphorus Level 4.9, Magnesium Level 2.1, Albumin 2.4L 01/16/20 11:14: Lab Scanned Report Transfusion Record CBC/BMP Laboratory Tests 01/16/20 07:18 Microbiology Microbiology 01/08/20 Respiratory Virus Panel (PCR) ([facility]) - Final, Complete 01/08/20 Blood Culture - Final, Complete NO GROWTH AFTER 5 DAYS 01/08/20 Blood Culture - Final, Complete NO GROWTH AFTER 5 DAYS Discharge Medications Scheduled Calcitriol (Rocaltrol) 0.25 Mcg Capsule, 0.25 MCG PO DAILY, (Reported) Folic Acid/Vit B Complex and C (Candice-Leslie Tablet) 0.8 Mg Tablet, 1 TAB PO DAILY, (Reported) Metoprolol Succinate (Metoprolol Succinate) 100 Mg Tab.er.24h, 200 MG PO DAILY Multivitamins (Thera M Plus Tablet) 1 Each Tablet, 1 TAB PO DAILY, (Reported) Eureka-3 Fatty Acids/Fish Oil (Fish Oil 1,000 mg Capsule) 1 Each Capsule, 1,000 MG PO DAILY, (Reported) Pantoprazole Sodium (Pantoprazole Sodium) 40 Mg Tablet.dr, 40 MG PO DAILY Prednisone (Prednisone) 20 Mg Tablet, 20 MG PO BID Scheduled PRN Nitroglycerin (Nitrostat) 0.4 Mg Tab.subl, 0.4 MG SL NITRO PRN for CHEST PAIN, (Reported) Miscellaneous Medications Eureka-3/Dha/Epa/Fish Oil (Fish Oil 500 mg Softgel) 1 Each Capsule, 1 CAP PO, (Reported) Allergies Coded Allergies: clarithromycin (Verified Allergy, Intermediate, rash, 01/08/20) Penicillins (Verified Allergy, Unknown, 01/08/20) cortisone (Verified Allergy, Unknown, 01/08/20) lisinopril (Verified Allergy, Unknown, 01/08/20) JEANETTE PUGA MD Jan 16, 2020 12:26
== END 2020-01-16 17:11 | DRG 545 ==
LOC: M ED 19:05 → M ED INP 23:14 → ENRESERV 23:19 → M PCU 01-09 01:22 → M ICU 01-09 08:06 → M PCU 01-11 17:15
PROVIDERS: ADMIT Internal Medicine; ATTEND Internal Medicine
PROC: 30233N1 Transfusion of Nonautologous Red Blood Cells into Peripheral Vein, Percutaneous Approach (ICD-10-PCS; 2020-01-08)
PROC: 02HV33Z Insertion of Infusion Device into Superior Vena Cava, Percutaneous Approach (ICD-10-PCS; 2020-01-09)
PROC: 5A1D70Z Performance of Urinary Filtration, Intermittent, Less than 6 Hours Per Day (ICD-10-PCS; 2020-01-09)
PROC: 0JH63XZ Insertion of Tunneled Vascular Access Device into Chest Subcutaneous Tissue and Fascia, Percutaneous Approach (ICD-10-PCS; principal; 2020-01-09 09:03)
DX: M31.7 Microscopic polyangiitis (principal); N18.6 End stage renal disease; J69.0 Pneumonitis due to inhalation of food and vomit; J96.91 Respiratory failure, unspecified with hypoxia; G93.41 Metabolic encephalopathy; I12.0 Hypertensive chronic kidney disease with stage 5 chronic kidney disease or end stage renal disease; N25.81 Secondary hyperparathyroidism of renal origin; E87.2 Acidosis; M31.31 Wegener's granulomatosis with renal involvement; D50.9 Iron deficiency anemia, unspecified; Z66 Do not resuscitate; E83.39 Other disorders of phosphorus metabolism; E55.9 Vitamin D deficiency, unspecified; M81.0 Age-related osteoporosis without current pathological fracture; I48.0 Paroxysmal atrial fibrillation; D63.1 Anemia in chronic kidney disease; L89.152 Pressure ulcer of sacral region, stage 2; Z88.0 Allergy status to penicillin; Z88.1 Allergy status to other antibiotic agents; Z88.8 Allergy status to other drugs, medicaments and biological substances; Z99.2 Dependence on renal dialysis; Z79.52 Long term (current) use of systemic steroids; Z79.899 Other long term (current) drug therapy

== ENCOUNTER 2020-01-16 16:22 | Inpatient (IN) | payer MEDICARE, MEDICAID ==
[~2020-01-16] VITALS: Ht 167.6 cm; Wt 43.0 kg
[~2020-01-16 16:22] MED LIST changes: +DIAL800T3 PO; +FISH1000 PO; +FISH306C PO; +FURO20TA2 PO; +GARL1000 PO; +METO1TAB33 PO; +METO25TA4 PO; +NITR4TASL SL; +ONE50TAB3 PO; +PANT40TA3 PO; +PRED20TA PO; +PRED5PAK PO; +PRED5TA PO; +RENATAB5 PO; +ROCA0.25 PO; +VITMTA PO
[2020-01-16 17:15] VITALS: BP 134/67
[2020-01-16 21:00] VITALS: BP 133/67
[2020-01-16] MEDS: REMEDY PHYTOPLEX Z-GUARD PASTE 113GM TUBE (FROM STOREROOM PRODUCT) TOP SCH (21:00)
[2020-01-16] MEDS: DOCUSATE SODIUM 100 MG CAP PO SCH (21:52)
[2020-01-16] MEDS: SENNA 8.6 MG TAB (SENOKOT) PO SCH (21:52)
[2020-01-16] MEDS: predniSONE 20 MG TAB PO SCH (21:52)
[2020-01-16] MEDS: HEPARIN SOD (PORCINE) 5000 UNITS/ML VIAL (J1644 PER 1000UNITS) SC SCH (21:52)
[2020-01-16] MEDS: ACETAMINOPHEN TAB 650MG DOSE (2X325MG) PO PRN (21:52)
[2020-01-16] MEDS: SUCRALFATE 1 GM TAB PO SCH (21:58)
[2020-01-17 06:23] VITALS: BP 123/70
[2020-01-17] MEDS: ACETAMINOPHEN TAB 650MG DOSE (2X325MG) PO PRN (06:43)
[2020-01-17 07:24] LABS: BASO % 0.1 % (0.0-1.0); HEMATOCRIT 27.2 % (36.0-47.0); HEMOGLOBIN 8.5 g/dl (12.0-15.5); LYMPH # 0.6 10^3/uL (1.5-5.0); LYMPH % 4.4 % (24.0-44.0); MEAN CORPUSCULAR HEMOGLOBIN 27.3 pg (27.0-33.0); MEAN CORPUSCULAR HGB CONC 31.3 g/dl (32.0-36.5); MEAN CORPUSCULAR VOLUME 87.5 fl (80.0-96.0); MONO # 0.7 10^3/uL (0.0-0.8); MONO % 5.5 % (0.0-5.0); NEUTROPHILS # 11.2 10^3/uL (1.5-8.5); NEUTROPHILS % 88.9 % (36.0-66.0); PLATELET COUNT, AUTOMATED 236 10^3/uL (150-450); RED BLOOD COUNT 3.11 10^6/uL (4.00-5.40); WHITE BLOOD COUNT 12.5 10^3/uL (4.0-10.0)
[2020-01-17 07:55] LABS: ALBUMIN 2.2 GM/DL (3.2-5.2); BILIRUBIN,TOTAL 0.5 MG/DL (0.2-1.0); CREATININE FOR GFR 4.03 MG/DL (0.55-1.30); GLOMERULAR FILTRATION RATE 11.4 (>39); POTASSIUM SERUM 4.8 MEQ/L (3.5-5.1); TOTAL PROTEIN 4.8 GM/DL (6.4-8.2)
[2020-01-17] MEDS: HEPARIN SOD (PORCINE) 5000 UNITS/ML VIAL (J1644 PER 1000UNITS) SC SCH ×2 (08:30→22:13)
[2020-01-17] MEDS: SUCRALFATE 1 GM TAB PO SCH ×3 (08:30→22:12)
[2020-01-17] MEDS ORDERED: IRON SUCROSE 100MG 5ML VIAL (J1756 PER 1MG) IV SCH (08:30)
[2020-01-17] MEDS: CALCITRIOL 0.25 MCG CAP (S0169) PO SCH (08:30)
[2020-01-17] MEDS: PANTOPRAZOLE 40MG TAB (PROTONIX) PO SCH (08:30)
[2020-01-17] MEDS: DOCUSATE SODIUM 100 MG CAP PO SCH ×2 (08:30→22:12)
[2020-01-17] MEDS ORDERED: DARBEPOETIN 100 MCG/0.5 ML *DIALYSIS* SYRINGE (J0882) IV SCH (08:30)
[2020-01-17] MEDS: MULTIVITAMINS/MINERALS THERAP 1 TAB PO SCH (08:30)
[2020-01-17] MEDS: predniSONE 20 MG TAB PO SCH ×2 (08:30→22:13)
[2020-01-17] MEDS: REMEDY PHYTOPLEX Z-GUARD PASTE 113GM TUBE (FROM STOREROOM PRODUCT) TOP SCH ×3 (08:33→22:33)
[2020-01-17] MEDS: METOPROLOL SUCC (TopROL XL) 100MG *XL* TAB PO SCH (08:33)
--- NOTE | 2020-01-17 11:38 | CR.PDOC ---
General Date of Consultation: Jan 17, 2020 Referring Provider: SOULEYMANE BAEZA MD Consultation TIME OF SERVICE: 9:15 AM REASON FOR CONSULT: Medical comanagement HISTORY OF PRESENT ILLNESS: His is 79-year-old female who presented on January 07 with c/o of weakness, fatigue and shortness of breath. She was admitted for management of uremic encephalopathy and hypoxic respiratory failure, possibly due to aspiration pneumonia and fluid overload in the setting of worsening renal function. She had emergent hemodialysis to manage her uremic encephalopathy, metabolic acidosis and other renal and electrolyte abnormalities & her mental status was noted to improve with dialysis. She received antibiotics for a suspected aspiration pneumonia & 2 units of PRBCs for acute anemia. Yesterday was transferred to the acute inpatient rehabilitation unit because of debility and difficulties completing her ADLs on her own; prior to this admission she lived on her own. Today, she denies having any chest pain, shortness of breath, fever or chills and reports rehabilitation is going well. REVIEW OF SYSTEMS: 12 point review of systems negative except as listed in HPI PAST MEDICAL/ SURGICAL HISTORY: Granulomatosis with polyangiitis. ESRD on dialysis complicated by anemia of chronic disease Chronic HTN Vitamin D deficiency. Paroxysmal atrial fibrillation SOCIAL HISTORY: She doesn't smoke. She doesn't drink. She is a use recreational drugs. She lives alone FAMILY HISTORY: n/a ALLERGIES: Please see below. HOME MEDICATIONS: Please see below. PHYSICAL EXAMINATION: Vital Signs Date Time Temp Pulse Resp B/P (MAP) Pulse Ox O2 Delivery O2 Flow Rate FiO2 01/16/20 17:15 98.7 72 18 134/67 (89) 97 Room Air GEN: slim build / well developed/ NAD INTEGUMENT: not flushed / she has a permacath at the right upper chest CVS: RRR/NMRG LUNGS: clear to auscultation bilaterally on room air ABDOMEN: soft & not tender with palpation MSK/EXTREMITIES: range of motion intact in all 4 extremities / no scoliosis / no kyphosis NEURO: CN 2-12 are grossly intact / speech is not dysarthric PSYCH: alert and oriented / able to understand and follow all commands LABORATORY DATA: 01/17/20 07:04 ASSESSMENT Ms. Ocampo is a 79-year-old with a past medical history of: Granulomatosis of polyangiitis. ESRD on dialysis, anemia of chronic disease, chronic HTN and paroxysmal atrial fibrillation who is admitted to the inpatient rehabilitation unit because of debility. PLAN: 1. Debility/deconditioning - rehabilitation per Dr. Archer 2. ESRD - dialysis, calcitriol per nephrology team 3. Anemia of chronic disease. She received 2 units of PRBCs. Iron panel reviewed. Hemoglobin is trending down. Her target hemoglobin is 10.11.5 - darbepoetin per nephrology / oral iron 4. Chronic HTN - metoprolol 5. Paroxysmal Atrial fibrillation. CHADSVaSC score is 4. Based on the current guidelines anticoagulation is indicated, even for paroxysmal atrial fibrillation - she is not on anticoagulation, possibly because of acute anemia ? - f/u CBC and consider starting AC if her stabilizes 6. Granulomatosis with polyangiitis - prednisone? / follow-up with drive thru order taker on an outpatient basis 7. Uremic encephalopathy, resolved 8. Hypoxic respiratory failure secondary to fluid overload and resumed aspiration pneumonia resolved 9. Protein calorie malnutrition with BMI 15.2. - Follow up prealbumin / dietitian consult for calorie count and dietary recommendations 10. Sarcopenia - exercise via rehabilitation/ follow up with dietitian for recommendations on high protein foods that are appropriate for a patient with ESRD / she may benefit from an out patient Comprehensive Geriatric Assessment DVT PROPHYLAXIS: Heparin Thank you for consulting us; we will continue to follow the patient with you. Allergies Coded Allergies: clarithromycin (Verified Allergy, Intermediate, rash, 01/08/20) Penicillins (Verified Allergy, Unknown, 01/08/20) cortisone (Verified Allergy, Unknown, 01/08/20) lisinopril (Verified Allergy, Unknown, 01/08/20) Home Medications Scheduled Calcitriol (Rocaltrol) 0.25 Mcg Capsule, 0.25 MCG PO DAILY, (Reported) Folic Acid/Vit B Complex and C (Candice-Leslie Tablet) 0.8 Mg Tablet, 1 TAB PO DAILY, (Reported) Metoprolol Succinate (Metoprolol Succinate) 100 Mg Tab.er.24h, 200 MG PO DAILY for 30 Days, #60 Multivitamins (Thera M Plus Tablet) 1 Each Tablet, 1 TAB PO DAILY, (Reported) [place]-3 Fatty Acids/Fish Oil (Fish Oil 1,000 mg Capsule) 1 Each Capsule, 1,000 MG PO DAILY, (Reported) Pantoprazole Sodium (Pantoprazole Sodium) 40 Mg Tablet., 40 MG PO DAILY for 30 Days, #30 Prednisone (Prednisone) 20 Mg Tablet, 20 MG PO BID for 30 Days, #60 Scheduled PRN Nitroglycerin (Nitrostat) 0.4 Mg Tab.subl, 0.4 MG SL NITRO PRN for CHEST PAIN, (Reported) Miscellaneous Medications [place]-3/Dha/Epa/Fish Oil (Fish Oil 500 mg Softgel) 1 Each Capsule, 1 CAP PO, (Reported) BEV LUO MD Jan 17, 2020 11:38
[2020-01-17 14:00] VITALS: BP 145/70
--- NOTE | 2020-01-17 14:03 | HPEPDOC ---
F[employer] Note DATE OF ADMISSION: 01-16-20 DATE OF SERVICE: 01-17-20 TIME OF ADMISSION: Please refer to physician's admission order. SOURCE OF ADMISSION INFORMATION: [facility] record and patient CHIEF COMPLAINT: encephalopathy with ESRD and PNA HISTORY OF PRESENT ILLNESS: 79F pmh ESRD, granulomatosis with polyangiitis, anemia of chronic disease, HTN, PAF not on AC who presented to [facility] ED on 01-08-20 per renal recs out of concern for worsening kidney function and decreased mobility. She had hypoxia with CXR revealing, Extensive bilateral perihilar infiltrates most consistent with pneumonia although pulmonary edema is a possibility and started on vancomycin, Levaquin and IV steroids, with Resp panel and blood cultures negative. Permacath was placed and she began dialysis which on 01-11-20 was complicated by Afib with RVR requiring IV beta-blockade. Patient had encephalopathy during her hospital stay with episodes of delirium. She had impairments in mobility and ADLs well below her baseline and was deemed medically appropriate for discharge to ARU on 01-16-20. REVIEW OF SYSTEMS: The following is a completed review of systems and has been reviewed. Review of systems otherwise unremarkable. PAIN: Patient self reports no pain EYES: No recent vision changes EARS, NOSE, & THROAT: No throat pain, or dysphagia, or rhinorrhea CARDIOVASCULAR: Denies chest pain or palpitations PULMONARY: Denies shortness of breath GASTROINTESTINAL:+constipation GENITOURINARY: denies dysuria, +oliguria MUSCULOSKELETAL: generalized weakness NEUROLOGICAL: no paresthesias HEMATOLOGICAL: denies easy bruising SKIN: right chest wall permacath PSYCHIATRIC: Unremarkable All other review of systems found to be negative. PAST MEDICAL HISTORY: as per [facility] PAST SURGICAL HISTORY: none ALLERGIES: Please see below. MEDICATIONS: Please see below. SOCIAL HISTORY: No etoh/illicit drugs/smoking, lives with son DIET: 2g sodium PHYSICAL EXAMINATION: VITAL SIGNS: Please see below. GENERAL: Pleasant and cooperative. No acute distress. thin HEENT: PERRL. Extraocular movements intact. Clear conjunctiva CARDIOVASCULAR: Regular rate and rhythm. No murmurs, rubs, or gallops LUNGS: Clear to auscultation bilaterally. No wheezes. No rhonchi ABDOMEN: Soft, nontender, nondistended. Positive bowel sounds. Normal active bowel sounds NEUROLOGICAL: Alert and oriented times three. Cranial nerves II through XII grossly intact. Sensation grossly intact EXTREMITIES: 5\5 strength bilateral upper extremities. 5\5 strength right lower extremity. 5/5 strength in left lower extremity. SKIN: right chest wall permacath LABORATORY DATA: Please see below. IMAGING: Imaging documentation personally reviewed by record. FUNCTIONAL STATUS: Premorbid: Modified Independent with all activities of daily life as well as mobility household distances On Admission: Min assist for functional transfers with Rw able to ambulate 5 feet, min assist toileting, lower body dressing, and grooming GOALS: Mod-I household distances, functional transfers, dressing, toileting, bathing, medical optimization, caregiver training. ASSESSMENT:79-year-old F with past medical history of granulomatosis with polyangiitis who presents status post encephalopathy in setting of ESRD and pneumonia PLAN: 1. Rehab- PT/OT advance gait and ADl, energy conservation, stre ngthen/stretch/maintain all 4 extremities, fall recovery and dynamic balance training -Will consider PROCESSING TECH for cognition 2. Neuro: recent episode of delirium and encephalopathy likely due to metabolic derangement in setting of ESRD and PNA, monitor and manage prn 3. cardiac: recent ECHO with degree of CHF and small pericardial effusion, patient not on fluid restriction, will defer to renal for fluid management -Afib c/u Metoprolol, not on AC at this time -medicine consult to assist with overall management 4. Resp: s/p course of antibiotics and IV steroids for bilateral pneumonia, encourage incentive spirometry, monitor for new or persistent infection -c/u prednisone 5. Renal: ESRD on dialysis, renal consulted -c/u calcitriol of hyperparathyroidism 6. GI ppx: protonix and sucralfate while on steroids 7. DVT ppx: heparin and Teds 8. Pain: Tylenol prn 9. Dispo: TBD POST ADMISSION PHYSICIAN EVALUATION: Medical and functional status: Description of medical status, medical assessment: As above. Rehabilitation diagnosis and current and prior cold morbid medical conditions as above. Risk of complications and plans to mitigate them as above. Description of functional status current status is as above. Prior status as above. Status compared to preadmission: There are no clinically significant differences between the patient's current status and the information described on the preadmission screening document. Treatment plan anticipated: Treatment plan is as described above. Required disciplines including physical therapy, occupational therapy, others as noted above. Intensity of services: 3 hours a day, 6 days a week. Special considerations: There are no specific special or safety considerations that would likely preclude immediate implementation of an intensive rehabilitation program or subsequently influence the plan of care. ATTESTATION: Considering all the information above, it is my best judgment that this patient requires intensive rehabilitation therapy as described above and an inpatient hospital environment due to the complexity of nursing, medical, and rehabilitation needs required by the patient. Furthermore, this patient can janie sonably be expected to participate in an benefit from an inpatient rehabilitation stay with an interdisciplinary team approach to the delivery of rehabilitation care under the direction and supervision of rehabilitation physician. PROGNOSIS: good. ESTIMATED LENGTH OF STAY:21-24 days. PROJECTED DISCHARGE DESTINATION: Home with family support and any durable medical equipment required to increase functional safety and mobility. TIME SPENT COUNSELING AND COORDINATING INITIAL CARE: Greater than 70 minutes. Vital Signs Vital Sign - Last 24 Hours 01/16/20 01/16/20 01/17/20 01/17/20 17:15 21:00 06:23 07:30 Temp 98.7 98.1 100.3 98.0 Pulse 72 68 66 Resp 18 18 18 B/P (MAP) 134/67 (89) 133/67 (89) 123/70 (87) Pulse Ox 97 95 96 O2 Delivery Room Air Room Air 01/17/20 08:33 Pulse 72 B/P (MAP) 151/71 Laboratory Data CBC/BMP Laboratory Tests 01/17/20 07:04 Labs 24H Laboratory Tests 2 01/17/20 07:04: Immature Granulocyte % (Auto) 1.1, Neutrophils (%) (Auto) 88.9H, Lymphocytes (%) (Auto) 4.4L, Monocytes (%) (Auto) 5.5H, Eosinophils (%) (Auto) 0.0, Basophils (%) (Auto) 0.1, Neutrophils # (Auto) 11.2H, Lymphocytes # (Auto) 0.6L, Monocytes # (Auto) 0.7, Eosinophils # (Auto) 0.0, Basophils # (Auto) 0.0, Nucleated Red Blood Cells % (auto) 0.0, Anion Gap 9, Glomerular Filtration Rate 11.4L, Calcium Level 8.0L, Total Bilirubin 0.5, Aspartate Amino Transf (AST/SGOT) 12, Alanine Aminotransferase (ALT/SGPT) 24, Alkaline Phosphatase 45, Total Protein 4.8L, Albumin 2.2L, Albumin/Globulin Ratio 0.85L 01/17/20 13:36: Home Medications Scheduled Calcitriol (Rocaltrol) 0.25 Mcg Capsule, 0.25 MCG PO DAILY, (Reported) Folic Acid/Vit B Complex and C (Candice-Leslie Tablet) 0.8 Mg Tablet, 1 TAB PO DAILY, (Reported) Metoprolol Succinate (Metoprolol Succinate) 100 Mg Tab.er.24h, 200 MG PO DAILY Multivitamins (Thera M Plus Tablet) 1 Each Tablet, 1 TAB PO DAILY, (Reported) [place]-3 Fatty Acids/Fish Oil (Fish Oil 1,000 mg Capsule) 1 Each Capsule, 1,000 MG PO DAILY, (Reported) Pantoprazole Sodium (Pantoprazole Sodium) 40 Mg Tablet.dr, 40 MG PO DAILY Prednisone (Prednisone) 20 Mg Tablet, 20 MG PO BID Scheduled PRN Nitroglycerin (Nitrostat) 0.4 Mg Tab.subl, 0.4 MG SL NITRO PRN for CHEST PAIN, (Reported) Allergies Coded Allergies: clarithromycin (Verified Allergy, Intermediate, rash, 01/08/20) Penicillins (Verified Allergy, Unknown, 01/08/20) cortisone (Verified Allergy, Unknown, 01/08/20) lisinopril (Verified Allergy, Unknown, 01/08/20) A-FIB/CHADSVASC A-FIB History Current/History of A-Fib/PAF?: Yes Current PO Anticoag Therapy: No SOULEYMANE BAEZA MD Jan 17, 2020 14:03
[2020-01-17 20:00] VITALS: BP 123/84
--- NOTE | 2020-01-17 21:05 | IPN ---
DATE: 01/17/2020 SUBJECTIVE The patient was seen and examined at the bedside today morning in the rehab unit. She was discharged from the main hospital and has been transferred to rehab because of poor functional status. She continues to be dialysis dependent. She is otherwise afebrile and hemodynamically stable and she denies any shortness of breath at this time. OBJECTIVE Vital signs: Temperature is 97.5 degrees Fahrenheit, blood pressure 145/70, pulse is 64, respiratory rate of 18, saturating 98% on room air. Intake and output: Urine output recorded as 1 liter since overnight. Weight in the bed scale was 42.6. PHYSICAL EXAMINATION General: The patient is awake, alert, oriented times three, sitting up in the beach chair. No apparent distress. Head and neck examination: Extraocular muscles intact. Pupils equally round and reactive to light. Mucous membranes are moist. Neck is supple. There is no JVD. She has a right IJ tunneled hemodialysis catheter. Cardiovascular: S1, S2, regular rate. Trace edema of the bilateral lower extremities. Respiratory: Chest is clear to auscultation bilaterally. Bilateral equal air entry. No rales or rhonchi. Abdomen: Soft, positive bowel sounds. Nontender. Musculoskeletal: No clubbing or cyanosis. Pulses are 2+. MANAGER SUSTAINABILITY: No focal deficit. Power is 5/5 in all extremities. LAB REVIEW: CBC showed WBC 12.5, hemoglobin 8.5, platelets are 236. BMP showed sodium 138, potassium 4.8, chloride 103, bicarb 26, BUN 79, creatinine is 5. CURRENT INPATIENT MEDICATIONS The patient's medications were all reviewed by myself. I have restarted her Venofer and Aranesp to be given during dialysis. The rest of the medications are the same as she was getting on discharge. ASSESSMENT/PLAN 1. End-stage renal disease. Today technically she is supposed to be discharged. However, because of the scheduling issues and some emergencies in ICU the patient will be dialyzed early in the morning. Volume status is optimal. 2. Anemia secondary to end-stage renal disease. The patient has been restarted on Venofer and Aranesp with dialysis, hemoglobin level is suboptimal but it is expected to improve. No need of blood transfusion at this time. 3. Microscopic polyangiitis with leg involvement. Patient got both steroids in the hospital. Currently she is on prednisone 20 mg by mouth twice a day which will be slowly tapered down. Immunosuppression will be done once the patient is discharged from the rehabilitation. 4. Secondary hyperparathyroidism. Continue current dose of calcitriol 0.25 mcg by mouth daily. 5. Hypertension with hypertensive heart disease and end-stage renal disease. Continue current dose of Toprol XL 200 mg by mouth daily.
[2020-01-17] MEDS: SENNA 8.6 MG TAB (SENOKOT) PO SCH (22:12)
[2020-01-18 06:00] VITALS: BP 128/72
[2020-01-18 06:46] LABS: BASO % 0.1 % (0.0-1.0); HEMATOCRIT 25.9 % (36.0-47.0); HEMOGLOBIN 8.3 g/dl (12.0-15.5); LYMPH # 0.4 10^3/uL (1.5-5.0); LYMPH % 2.7 % (24.0-44.0); MEAN CORPUSCULAR HEMOGLOBIN 28.2 pg (27.0-33.0); MEAN CORPUSCULAR VOLUME 88.1 fl (80.0-96.0); MONO # 0.5 10^3/uL (0.0-0.8); MONO % 3.7 % (0.0-5.0); NEUTROPHILS # 11.8 10^3/uL (1.5-8.5); NEUTROPHILS % 91.9 % (36.0-66.0); PLATELET COUNT, AUTOMATED 281 10^3/uL (150-450); RED BLOOD COUNT 2.94 10^6/uL (4.00-5.40); WHITE BLOOD COUNT 12.9 10^3/uL (4.0-10.0)
[2020-01-18] MEDS: HEPARIN SOD (PORCINE) 5000 UNITS/ML VIAL (J1644 PER 1000UNITS) SC SCH ×2 (07:05→20:47)
[2020-01-18] MEDS: PANTOPRAZOLE 40MG TAB (PROTONIX) PO SCH (07:05)
[2020-01-18] MEDS: predniSONE 20 MG TAB PO SCH ×2 (07:05→20:47)
--- NOTE | 2020-01-18 08:41 | REP ---
Clinical: Leukocytosis. Recent pneumonia. Comparison: 01/12/2020. Findings: Mediastinum and cardiac silhouette are stable. Double-lumen dialysis catheter with tip in the SVC again noted. The lung alvarado demonstrate diffuse chronic interstitial changes. Subtle ill-defined areas of opacity in the right base suggest atelectasis and possible small pleural reaction/effusion. Skeletal structures demonstrate osteopenia and degenerative changes. Impression: Cannot exclude subtle right basilar atelectasis and possible small right pleural reaction. Electronically Signed by Driss Richardson MD 01/18/2020 08:33 A
[2020-01-18] MEDS: REMEDY PHYTOPLEX Z-GUARD PASTE 113GM TUBE (FROM STOREROOM PRODUCT) TOP SCH ×3 (09:00→20:49)
[2020-01-18] MEDS: SUCRALFATE 1 GM TAB PO SCH ×3 (09:00→20:47)
[2020-01-18] MEDS ORDERED: HEPARIN 1,000 UNITS/ML 10ML VIAL (FOR RADIOLOGY& DIALYSIS ONLY)(J1644-10) IV ONE (10:45)
[2020-01-18] MEDS ORDERED: HEPARIN 1,000 UNITS/ML 10ML VIAL (FOR RADIOLOGY& DIALYSIS ONLY)(J1644-10) XX ONE (10:45)
[2020-01-18] MEDS: MULTIVITAMINS/MINERALS THERAP 1 TAB PO SCH (13:20)
[2020-01-18] MEDS: DOCUSATE SODIUM 100 MG CAP PO SCH ×2 (13:20→20:47)
[2020-01-18] MEDS: CALCITRIOL 0.25 MCG CAP (S0169) PO SCH (13:20)
[2020-01-18] MEDS: METOPROLOL SUCC (TopROL XL) 100MG *XL* TAB PO SCH (13:21)
[2020-01-18 14:00] VITALS: BP 131/71
--- NOTE | 2020-01-18 18:18 | IPN ---
DATE: 01/18/2020 SUBJECTIVE: The patient was seen and examined the bedside today morning during hemodialysis procedure. She is tolerating the hemodialysis procedure well. Hemodialysis was postpone yesterday because of some emergencies yesterday. The patient denies any active complaints. She is afebrile and hemodynamically stable. OBJECTIVE: Vital signs: Temperature is 98.5 degrees Fahrenheit, blood pressure 131/71, pulse 74, respiratory of 18, saturating 99% on room air. Intake and output: Urine output yesterday was 1.2 liters. Weight in the bed scale is not available. PHYSICAL EXAMINATION: GENERAL: The patient is awake, alert, oriented times three, lying in bed getting hemodialysis done. HEAD AND NECK: Extraocular muscles intact. Pupils equally round and reactive to light. Mucous membranes are moist. Neck is supple. She has a right internal jugular (IJ) tunneled hemodialysis catheter being used for dialysis. CARDIOVASCULAR: S1, S2, regular rate. No edema of the bilateral lower extremities. RESPIRATORY: Chest is clear to auscultation bilaterally. Bilateral equal air entry. No rales or rhonchi. ABDOMEN: Soft. Positive bowel sounds. Nontender. No organomegaly MUSCULOSKELETAL: No clubbing or cyanosis. Pulses are 2+. CENTRAL NERVOUS SYSTEM: No focal deficit. Power is 5/5 in all extremities. LABORATORY REVIEW: CBC showed WBC 12.9, hemoglobin 8.3, platelets are 281. BMP was done yesterday, and potassium was 4.8 and creatinine was 4. IMAGING: Repeat chest x-ray was done today morning, which showed cannot exclude subtle right basilar atelectasis and possible small right pleural reaction. CURRENT INPATIENT MEDICATIONS: The patient's medications were all reviewed by me. There is no change in the medications today as compared with yesterday. ASSESSMENT AND PLAN: 1. End-stage renal disease. The patient is being dialyzed today. Ultrafiltration goal will be around 1.5 liters as tolerated by blood pressure. 2. Anemia secondary to end-stage renal disease. Hemoglobin is persistently low but stable. Continue current dose of Venofer and Aranesp. If hemoglobin level does not improve, then Aranesp dose will be increased. 3. Microscopic polyangiitis. Continue current dose of prednisone 20 mg by mouth twice a day. 4. Hypertension with hypertensive heart disease. Continue current dose of metoprolol 200 mg by mouth daily.
[2020-01-18 20:00] VITALS: BP 162/82
[2020-01-18] MEDS: ACETAMINOPHEN TAB 650MG DOSE (2X325MG) PO PRN (20:47)
[2020-01-18] MEDS: SENNA 8.6 MG TAB (SENOKOT) PO SCH (20:47)
[2020-01-18 21:00] VITALS: BP 140/80
[2020-01-19 05:49] VITALS: BP 134/63
[2020-01-19] MEDS: REMEDY PHYTOPLEX Z-GUARD PASTE 113GM TUBE (FROM STOREROOM PRODUCT) TOP SCH ×3 (09:00→20:47)
[2020-01-19] MEDS: HEPARIN SOD (PORCINE) 5000 UNITS/ML VIAL (J1644 PER 1000UNITS) SC SCH ×2 (09:13→20:46)
[2020-01-19] MEDS: MULTIVITAMINS/MINERALS THERAP 1 TAB PO SCH (09:13)
[2020-01-19] MEDS: SUCRALFATE 1 GM TAB PO SCH ×3 (09:13→20:46)
[2020-01-19] MEDS: CALCITRIOL 0.25 MCG CAP (S0169) PO SCH (09:13)
[2020-01-19] MEDS: DOCUSATE SODIUM 100 MG CAP PO SCH ×2 (09:13→20:46)
[2020-01-19] MEDS: predniSONE 20 MG TAB PO SCH ×2 (09:13→20:46)
[2020-01-19] MEDS: PANTOPRAZOLE 40MG TAB (PROTONIX) PO SCH (09:13)
[2020-01-19] MEDS: METOPROLOL SUCC (TopROL XL) 100MG *XL* TAB PO SCH (09:14)
[2020-01-19] MEDS ORDERED: BISACODYL 10 MG SUPP PR PRN (11:15)
--- NOTE | 2020-01-19 13:45 | IPN ---
DATE OF SERVICE: 01/19/2020 SUBJECTIVE: Bettye was seen and examined in the rehabilitation unit receiving physical therapy. She denies any overnight events or complaints. Reports that she is working on stair climbing. Denies shortness of breath at rest. She was dialyzed yesterday was 1500 mL of fluid removed. Vital signs: Temperature 98.1, pulse 70, respiratory rate 20, blood pressure 134/63, saturating 97% on room air. Dialysis yesterday removed 1500 mL. Urine output yesterday was 925 mL. Weight in the bed scale today is 42 kg. General: The patient is seen working with the physical therapist. Elderly female. Bright, articulate, awake, alert, and in no distress. Extraocular muscles are intact. The pupils are round and reactive to light. Mucous membranes are moist. Neck is supple. There is a tunneled hemodialysis catheter in the right chest wall with a dressing which is clean, dry, and intact. Cardiac: S1, S2, regular rate. There is compression stockings on the legs, but there is no appreciable edema. Lungs show occasional rhonchus, otherwise fairly clear bilaterally. She is comfortable on room air. No accessory muscle. No tachypnea. Abdomen is soft and nontender. Musculoskeletal: There is decreasingly muscle mass. There is no appreciable edema or clubbing. Neurologic: She is oriented times three, interactive, and conversational. LABORATORIES: There are no new laboratories today. Yesterday's laboratories are reviewed, pertinent for a hemoglobin of 8.3. IMAGING: Chest x-ray 01/18/2020, chronic interstitial changes of the lung alvarado and subtle opacity in the right base. INPATIENT MEDICATIONS: Reviewed by me. No change from prior. PROBLEMS: 1. End-stage renal disease, on hemodialysis. The patient was dialyzed on Monday with 1500 mL of fluid removed. She tolerated her treatment well. Her PermCath is in good use. Her volume status and electrolytes are acceptable. She is still making a good amount of urine, as well. Next dialysis is going to be on 01/21/2020. 2. Anemia related to chronic renal failure. Hemoglobin is persistently low but stable. She continues on Venofer and Aranesp with dialysis. 3. Microscopic polyangiitis. She continues on oral prednisone. 4. Hypertension with hypertensive heart disease. Blood pressure is well controlled, and no changes are being made to the current antihypertensive regimen.
[2020-01-19 14:00] VITALS: BP 134/73
[2020-01-19 19:38] VITALS: BP 100/96
[2020-01-19] MEDS: ACETAMINOPHEN TAB 650MG DOSE (2X325MG) PO PRN (20:46)
[2020-01-19] MEDS: SENNA 8.6 MG TAB (SENOKOT) PO SCH (20:46)
[2020-01-20 05:56] VITALS: BP 154/76
[2020-01-20 07:13] LABS: BASO % 0.1 % (0.0-1.0); HEMOGLOBIN 9.3 g/dl (12.0-15.5); LYMPH # 0.4 10^3/uL (1.5-5.0); LYMPH % 2.8 % (24.0-44.0); MEAN CORPUSCULAR HEMOGLOBIN 28.5 pg (27.0-33.0); MEAN CORPUSCULAR HGB CONC 32.1 g/dl (32.0-36.5); MONO # 0.3 10^3/uL (0.0-0.8); MONO % 1.7 % (0.0-5.0); NEUTROPHILS # 14.2 10^3/uL (1.5-8.5); NEUTROPHILS % 94.1 % (36.0-66.0); PLATELET COUNT, AUTOMATED 300 10^3/uL (150-450); RED BLOOD COUNT 3.26 10^6/uL (4.00-5.40); WHITE BLOOD COUNT 15.1 10^3/uL (4.0-10.0)
[2020-01-20 07:27] LABS: CALCIUM LEVEL 8.2 MG/DL (8.8-10.2); CREATININE FOR GFR 4.04 MG/DL (0.55-1.30); GLOMERULAR FILTRATION RATE 11.4 (>39); POTASSIUM SERUM 5.1 MEQ/L (3.5-5.1)
[2020-01-20] MEDS: HEPARIN SOD (PORCINE) 5000 UNITS/ML VIAL (J1644 PER 1000UNITS) SC SCH ×2 (09:30→20:30)
[2020-01-20] MEDS: MULTIVITAMINS/MINERALS THERAP 1 TAB PO SCH (09:30)
[2020-01-20] MEDS: CALCITRIOL 0.25 MCG CAP (S0169) PO SCH (09:31)
[2020-01-20] MEDS: SUCRALFATE 1 GM TAB PO SCH ×3 (09:31→20:30)
[2020-01-20] MEDS: DOCUSATE SODIUM 100 MG CAP PO SCH ×2 (09:31→20:31)
[2020-01-20] MEDS: predniSONE 20 MG TAB PO SCH ×2 (09:31→20:30)
[2020-01-20] MEDS: PANTOPRAZOLE 40MG TAB (PROTONIX) PO SCH (09:31)
[2020-01-20] MEDS: METOPROLOL SUCC (TopROL XL) 100MG *XL* TAB PO SCH (09:31)
[2020-01-20] MEDS: REMEDY PHYTOPLEX Z-GUARD PASTE 113GM TUBE (FROM STOREROOM PRODUCT) TOP SCH ×3 (09:34→20:31)
--- NOTE | 2020-01-20 10:35 | IPN ---
DATE OF SERVICE: 01/20/2020 SUBJECTIVE: The patient was seen and examined at the bedside today morning in the rehab unit. She was getting her physical therapy when I saw her. She is awake and alert. She denies any active complaints and she reports that she is getting her strength and able to walk more now. OBJECTIVE: VITAL SIGNS: Temperature is 97.3 degrees Fahrenheit, blood pressure 154/76, pulse is 73, respiratory rate of 18, saturating 99% on room air. INTAKE AND OUTPUT: There is no urine output recorded. Weight on the bed scale was 42 kg. PHYSICAL EXAMINATION: GENERAL: The patient is awake, alert, oriented times three, sitting up on the sofa in no apparent distress. HEAD AND NECK EXAM: Extraocular muscles intact. Pupils equally round and reactive to light. Mucous membranes are moist. Neck is supple. She has a right IJ tunneled hemodialysis catheter. CARDIOVASCULAR: S1, S2 regular rate. No edema of the bilateral lower extremities. RESPIRATORY: Chest is clear to auscultation bilaterally. Bilateral equal air entry. No rales or rhonchi. ABDOMEN: Soft, positive bowel sounds. Nontender. No organomegaly. MUSCULOSKELETAL: No clubbing or cyanosis. Pulses are 2+. CLINICAL OPERATIONS LEADER: No focal deficit. Power is 5/5 in all extremities. LAB REVIEW: CBC showed WBC 15.1, hemoglobin 9.3, platelets are 300. BMP showed sodium 134, potassium 5.1, chloride 98, bicarb 28, BUN 63, creatinine is 4, calcium 8.2. CURRENT INPATIENT MEDICATIONS: The patient's medications were all reviewed by myself. There is no significant change in the medications today as compared with yesterday. I have decreased the Carafate dose to 10 days only because of risk of aluminum toxicity. ASSESSMENT/PLAN 1. End-stage renal disease. The patient is dialysis dependent. She was dialyzed over the weekend. However, her outpatient schedule is going to be Monday, Monday, Monday. She will be dialyzed in the afternoon today. Ultrafiltration goal will be 1.5 mL as tolerated by blood pressure. 2. Anemia secondary to end-stage renal disease. The patient is getting Venofer and Aranesp. Her hemoglobin level is slowly improving. 4. Microscopic polyangiitis. The patient is status post pulse steroids. She continues to be on prednisone 20 mg twice a day and dose will be decreased every 7 days. 5. Hypertension with hypertensive heart disease. Continue current dose of metoprolol XL 200 mg p.o. daily.
[2020-01-20] MEDS ORDERED: HEPARIN 1,000 UNITS/ML 10ML VIAL (FOR RADIOLOGY& DIALYSIS ONLY)(J1644-10) XX ONE (12:30)
[2020-01-20] MEDS ORDERED: HEPARIN 1,000 UNITS/ML 10ML VIAL (FOR RADIOLOGY& DIALYSIS ONLY)(J1644-10) IV ONE (12:30)
--- NOTE | 2020-01-20 14:22 | IPNPDOC ---
PM&R Progress Note DATE OF SERVICE: Jan 20, 2020 Retail Service Specialist Progress Note Subjective: Patient seen walking in therapy stating she feels a little weak since starting dialysis, but denies pain with walking. REVIEW OF SYSTEMS: The following is a completed review of systems and has been reviewed. Review of systems otherwise unremarkable. PAIN: Patient self reports no pain EYES: No recent vision changes EARS, NOSE, & THROAT: No throat pain, or dysphagia, or rhinorrhea CARDIOVASCULAR: Denies chest pain or palpitations PULMONARY: Denies shortness of breath GASTROINTESTINAL:+constipation (improving) GENITOURINARY: denies dysuria, +oliguria MUSCULOSKELETAL: generalized weakness NEUROLOGICAL: no paresthesias HEMATOLOGICAL: denies easy bruising SKIN: right chest wall permacath PSYCHIATRIC: Unremarkable All other review of systems found to be negative. PHYSICAL EXAMINATION: VITAL SIGNS: Please see below. GENERAL: Pleasant and cooperative. No acute distress. thin HEENT: PERRL. Extraocular movements intact. Clear conjunctiva CARDIOVASCULAR: Regular rate and rhythm. No murmurs, rubs, or gallops LUNGS: Clear to auscultation bilaterally. No wheezes. No rhonchi ABDOMEN: Soft, nontender, nondistended. Positive bowel sounds. Normal active bowel sounds NEUROLOGICAL: Alert and oriented times three. Cranial nerves II through XII grossly intact. Sensation grossly intact EXTREMITIES: 5\5 strength bilateral upper extremities. 5\5 strength right lower extremity. 5/5 strength in left lower extremity. SKIN: right chest wall permacath ASSESSMENT:79-year-old F with past medical history of granulomatosis with polyangiitis who presents status post encephalopathy in setting of ESRD and pneumonia PLAN: 1. Rehab- PT/OT advance gait and ADl, energy conservation, strengthen/stretch/maintain all 4 extremities, fall recovery and dynamic balance training, ambulating with RW -Will consider CONTENT ARCHITECT for cognition 2. Neuro: recent episode of delirium and encephalopathy likely due to metabolic derangement in setting of ESRD and PNA, monitor and manage prn 3. cardiac: recent ECHO with degree of CHF and small pericardial effusion, patient not on fluid restriction, will defer to renal for fluid management -Afib c/u Metoprolol, not on AC at this time -medicine consult to assist with overall management 4. Resp: s/p course of antibiotics and IV steroids for bilateral pneumonia, encourage incentive spirometry, monitor for new or persistent infection -c/u prednisone 5. Renal: ESRD on dialysis, renal consulted -c/u calcitriol of hyperparathyroidism 6. GI ppx: protonix and sucralfate while on steroids 7. DVT ppx: heparin and Teds 8. Pain: Tylenol prn 9. Heme: anemia of chronic disease, renal managing c/u Venhi and Barbara, recs appreciated 9. Dispo: TBD Allergies Coded Allergies: clarithromycin (Verified Allergy, Intermediate, rash, 01/08/20) Penicillins (Verified Allergy, Unknown, 01/08/20) cortisone (Verified Allergy, Unknown, 01/08/20) lisinopril (Verified Allergy, Unknown, 01/08/20) Vital Signs Vital Signs Date Time Temp Pulse Resp B/P (MAP) Pulse Ox O2 Delivery O2 Flow Rate FiO2 01/20/20 09:31 73 154/76 01/20/20 05:56 97.3 18 93 Room Air Laboratory Data CBC/BMP Laboratory Tests 01/20/20 06:27 Labs 24H Laboratory Tests 2 01/20/20 06:27: Immature Granulocyte % (Auto) 1.3, Neutrophils (%) (Auto) 94.1H, Lymphocytes (%) (Auto) 2.8L, Monocytes (%) (Auto) 1.7, Eosinophils (%) (Auto) 0.0, Basophils (%) (Auto) 0.1, Neutrophils # (Auto) 14.2H, Lymphocytes # (Auto) 0.4L, Monocytes # (Auto) 0.3, Eosinophils # (Auto) 0.0, Basophils # (Auto) 0.0, Nucleated Red Blood Cells % (auto) 0.0, Anion Gap 8, Glomerular Filtration Rate 11.4L, Calcium Level 8.2L Current Medications Current Medications Current Medications Medications (Trade) Dose Ordered Sig/Jaime Route PRN Reason Start Time Stop Time Status Last Admin Dose Admin Acetaminophen (Tylenol Tab) 650 mg Q4HP PRN PO fever/MILD PAIN (PS 1-4) 01/16/20 17:00 01/19/20 20:46 Bisacodyl (Dulcolax Suppository) [address] CONSTIPATION 01/19/20 11:15 01/19/20 11:28 Calcitriol (Rocaltrol) 0.25 mcg DAILY PO 01/17/20 09:00 01/20/20 09:31 Darbepoetin Hebert (Aranesp (Dialysis Use)) 100 mcg HD IV 01/17/20 08:30 Docusate Sodium (Colace) 100 mg BID PO 01/16/20 21:00 01/20/20 09:31 Heparin Sodium (Porcine) (Heparin) 5,000 units Q12H SC 01/16/20 21:00 01/20/20 09:30 Iron (Venofer) 100 mg HD IV 01/17/20 08:30 01/23/20 08:31 Metoprolol Succinate (TopROL XL) 200 mg DAILY PO 01/17/20 09:00 01/20/20 09:31 Multivitamins (Theragram-M) 1 tab DAILY PO 01/17/20 09:00 01/20/20 09:30 Pantoprazole Sodium (Protonix) 40 mg DAILY PO 01/17/20 09:00 01/20/20 09:31 Prednisone (Deltasone) 20 mg BID PO 01/16/20 21:00 01/20/20 09:31 Senna (Senokot) 1 tab QHS PO 01/16/20 21:00 01/19/20 20:46 Sucralfate (Carafate) 1 gm TID PO 01/16/20 21:00 01/26/20 20:59 01/20/20 09:31 SOULEYMANE BAEZA MD Jan 20, 2020 14:22
[2020-01-20 15:00] VITALS: BP 117/64
[2020-01-20 20:30] VITALS: BP 107/53
[2020-01-20] MEDS: SENNA 8.6 MG TAB (SENOKOT) PO SCH (20:30)
[2020-01-20] MEDS: ACETAMINOPHEN TAB 650MG DOSE (2X325MG) PO PRN (20:31)
[2020-01-21 06:17] VITALS: BP 135/77
[2020-01-21 06:27] LABS: BASO % 0.2 % (0.0-1.0); HEMATOCRIT 26.1 % (36.0-47.0); HEMOGLOBIN 8.2 g/dl (12.0-15.5); LYMPH # 0.4 10^3/uL (1.5-5.0); LYMPH % 3.3 % (24.0-44.0); MEAN CORPUSCULAR HEMOGLOBIN 28.2 pg (27.0-33.0); MEAN CORPUSCULAR HGB CONC 31.4 g/dl (32.0-36.5); MEAN CORPUSCULAR VOLUME 89.7 fl (80.0-96.0); MONO # 0.4 10^3/uL (0.0-0.8); MONO % 2.9 % (0.0-5.0); NEUTROPHILS % 91.8 % (36.0-66.0); PLATELET COUNT, AUTOMATED 254 10^3/uL (150-450); RED BLOOD COUNT 2.91 10^6/uL (4.00-5.40); WHITE BLOOD COUNT 13.1 10^3/uL (4.0-10.0)
[2020-01-21 06:50] LABS: CALCIUM LEVEL 8.2 MG/DL (8.8-10.2); CREATININE FOR GFR 2.51 MG/DL (0.55-1.30); GLOMERULAR FILTRATION RATE 19.7 (>39); POTASSIUM SERUM 4.7 MEQ/L (3.5-5.1)
[2020-01-21] MEDS: predniSONE 20 MG TAB PO SCH ×2 (07:56→23:11)
[2020-01-21] MEDS: CALCITRIOL 0.25 MCG CAP (S0169) PO SCH (07:56)
[2020-01-21] MEDS: MULTIVITAMINS/MINERALS THERAP 1 TAB PO SCH (07:56)
[2020-01-21] MEDS: SUCRALFATE 1 GM TAB PO SCH ×3 (07:56→23:11)
[2020-01-21] MEDS: PANTOPRAZOLE 40MG TAB (PROTONIX) PO SCH (07:56)
[2020-01-21] MEDS: HEPARIN SOD (PORCINE) 5000 UNITS/ML VIAL (J1644 PER 1000UNITS) SC SCH ×2 (07:57→23:10)
[2020-01-21] MEDS: METOPROLOL SUCC (TopROL XL) 100MG *XL* TAB PO SCH (07:57)
[2020-01-21] MEDS: DOCUSATE SODIUM 100 MG CAP PO SCH ×2 (07:58→23:11)
[2020-01-21] MEDS: REMEDY PHYTOPLEX Z-GUARD PASTE 113GM TUBE (FROM STOREROOM PRODUCT) TOP SCH ×3 (07:58→23:12)
[2020-01-21 14:00] VITALS: BP 136/69
--- NOTE | 2020-01-21 15:44 | IPNPDOC ---
PM&R Progress Note DATE OF SERVICE: Jan 21, 2020 Mechanic Welder Progress Note Subjective: Patient seen in her room stating she feels well overall, she denies having pain on her bottom from her sore and cannot recall how she got it. REVIEW OF SYSTEMS: The following is a completed review of systems and has been reviewed. Review of systems otherwise unremarkable. PAIN: Patient self reports no pain EYES: No recent vision changes EARS, NOSE, & THROAT: No throat pain, or dysphagia, or rhinorrhea CARDIOVASCULAR: Denies chest pain or palpitations PULMONARY: Denies shortness of breath GASTROINTESTINAL:+constipation (improving) GENITOURINARY: denies dysuria, +oliguria MUSCULOSKELETAL: generalized weakness NEUROLOGICAL: no paresthesias HEMATOLOGICAL: denies easy bruising SKIN: right chest wall permacath PSYCHIATRIC: Unremarkable All other review of systems found to be negative. PHYSICAL EXAMINATION: VITAL SIGNS: Please see below. GENERAL: Pleasant and cooperative. No acute distress. thin HEENT: PERRL. Extraocular movements intact. Clear conjunctiva CARDIOVASCULAR: Regular rate and rhythm. No murmurs, rubs, or gallops LUNGS: Clear to auscultation bilaterally. No wheezes. No rhonchi ABDOMEN: Soft, nontender, nondistended. Positive bowel sounds. Normal active bowel sounds NEUROLOGICAL: Alert and oriented times three. Cranial nerves II through XII grossly intact. Sensation grossly intact EXTREMITIES: 5\5 strength bilateral upper extremities. 5\5 strength right lower extremity. 5/5 strength in left lower extremity. SKIN: right chest wall permacath, stage 2 sacral ulcer ASSESSMENT:79-year-old F with past medical history of granulomatosis with polyangiitis who presents status post encephalopathy in setting of ESRD and pneumonia PLAN: 1. Rehab- PT/OT advance gait and ADl, energy conservation, strengthen/stretch/maintain all 4 extremities, fall recovery and dynamic balance training, ambulating with RW -Will consider [employer] for cognition 2. Neuro: recent episode of delirium and encephalopathy likely due to metabolic derangement in setting of ESRD and PNA, monitor and manage prn 3. cardiac: recent ECHO with degree of CHF and small pericardial effusion, patient not on fluid restriction, will defer to renal for fluid management -Afib c/u Metoprolol, not on AC at this time -medicine consult to assist with overall management 4. Resp: s/p course of antibiotics and IV steroids for bilateral pneumonia, encourage incentive spirometry, monitor for new or persistent infection -c/u prednisone 5. Renal: ESRD on dialysis, renal consulted -c/u calcitriol of hyperparathyroidism 6. GI ppx: protonix and sucralfate while on steroids 7. DVT ppx: heparin and Teds 8. Pain: Tylenol prn 9. Heme: anemia of chronic disease, renal managing c/u Venofer and Aranesp, recs appreciated 10. Skin: patient with stage 2 sacral ulcer present on admission, c/u at least TID barrier cream application 9. Dispo: TBD Allergies Coded Allergies: clarithromycin (Verified Allergy, Intermediate, rash, 01/08/20) Penicillins (Verified Allergy, Unknown, 01/08/20) cortisone (Verified Allergy, Unknown, 01/08/20) lisinopril (Verified Allergy, Unknown, 01/08/20) Vital Signs Vital Signs Date Time Temp Pulse Resp B/P (MAP) Pulse Ox O2 Delivery O2 Flow Rate FiO2 01/21/20 14:00 96.1 72 18 136/69 (91) 98 Room Air Laboratory Data CBC/BMP Laboratory Tests 01/21/20 06:02 Labs 24H Laboratory Tests 2 01/21/20 06:02: Immature Granulocyte % (Auto) 1.8, Neutrophils (%) (Auto) 91.8H, Lymphocytes (%) (Auto) 3.3L, Monocytes (%) (Auto) 2.9, Eosinophils (%) (Auto) 0.0, Basophils (%) (Auto) 0.2, Neutrophils # (Auto) 12.0H, Lymphocytes # (Auto) 0.4L, Monocytes # (Auto) 0.4, Eosinophils # (Auto) 0.0, Basophils # (Auto) 0.0, Nucleated Red Blood Cells % (auto) 0.0, Anion Gap 3L, Glomerular Filtration Rate 19.7L, Calcium Level 8.2L Current Medications Current Medications Current Medications Medications (Trade) Dose Ordered Sig/Jaime Route PRN Reason Start Time Stop Time Status Last Admin Dose Admin Acetaminophen (Tylenol Tab) 650 mg Q4HP PRN PO fever/MILD PAIN (PS 1-4) 01/16/20 17:00 01/20/20 20:31 Bisacodyl (Dulcolax Suppository) 10 mg DAILYPRN PRN [place] CONSTIPATION 01/19/20 11:15 01/19/20 11:28 Calcitriol (Rocaltrol) 0.25 mcg DAILY PO 01/17/20 09:00 01/21/20 07:56 Darbepoetin Hebert (Aranesp (Dialysis Use)) 100 mcg HD IV 01/17/20 08:30 Docusate Sodium (Colace) 100 mg BID PO 01/16/20 21:00 01/20/20 20:31 Heparin Sodium (Porcine) (Heparin) 5,000 units Q12H SC 01/16/20 21:00 01/21/20 07:57 Iron (Venofer) 100 mg HD IV 01/17/20 08:30 01/23/20 08:31 Metoprolol Succinate (TopROL XL) 200 mg DAILY PO 01/17/20 09:00 01/21/20 07:57 Multivitamins (Theragram-M) 1 tab DAILY PO 01/17/20 09:00 01/21/20 07:56 Pantoprazole Sodium (Protonix) 40 mg DAILY PO 01/17/20 09:00 01/21/20 07:56 Prednisone (Deltasone) 20 mg BID PO 01/16/20 21:00 01/21/20 07:56 Senna (Senokot) 1 tab QHS PO 01/16/20 21:00 01/20/20 20:30 Sucralfate (Carafate) 1 gm TID PO 01/16/20 21:00 01/26/20 20:59 01/21/20 07:56 SOULEYMANE BAEZA MD Jan 21, 2020 15:44
--- NOTE | 2020-01-21 17:32 | IPN ---
DATE: 01/21/2020 SUBJECTIVE: The patient was seen and examined at the bedside today morning. She is afebrile, hemodynamically stable. She was dialyzed yesterday. She tolerated the hemodialysis procedure well. One liter of fluid was removed. OBJECTIVE: VITAL SIGNS: Temperature is 96.1 degrees Fahrenheit, blood pressure 136/69, pulse is 72, respiratory rate of 18, saturating 98% on room air. INTAKE AND OUTPUT: Ultrafiltration with hemodialysis was 1 liter yesterday. Weight in the bed scale is not available. PHYSICAL EXAMINATION: GENERAL: The patient is awake, alert, oriented times three, sitting up in the sofa, in no apparent distress. HEAD AND NECK: Extraocular muscles intact. Pupils equally round and reactive to light. Mucous membranes are moist. Neck is supple. She has a right internal jugular (IJ) tunneled hemodialysis catheter. CARDIOVASCULAR: S1, S2, regular rate. No edema of the bilateral lower extremities. RESPIRATORY: Chest is clear to auscultation bilaterally. Bilateral equal air entry. No rales or rhonchi. ABDOMEN: Soft, positive bowel sounds, nontender. No organomegaly. MUSCULOSKELETAL: No clubbing or cyanosis. Pulses are 2+. LABORATORY REVIEW: CBC showed a WBC of 13.1, hemoglobin 8.2, platelets are 154. BMP showed sodium 137, potassium 4.7, chloride 101, bicarbonate 33, BUN 32, creatinine is 2.5. CURRENT INPATIENT MEDICATIONS: The patient's medications were all reviewed by myself. There is no significant change in the medications today. ASSESSMENT AND PLAN: 1. End-stage renal disease. The patient was dialyzed yesterday. Next hemodialysis will be done tomorrow morning. Volume status is optimal. 2. Anemia secondary to end-stage renal disease. The patient's hemoglobin level is persistently below target. Continue the Venofer and Aranesp for now. Dose will be increased next week if hemoglobin stays low. 3. Microscopic polyangiitis. Continue current dose of prednisone 20 mg by mouth twice a day. Dose will be decreased end of this week. 4. Hypertension with hypertensive heart disease. Continue current dose of metoprolol.
[2020-01-21 22:00] VITALS: BP 117/63
[2020-01-21] MEDS: SENNA 8.6 MG TAB (SENOKOT) PO SCH (23:10)
[2020-01-22 05:58] VITALS: BP 135/69
[2020-01-22 06:52] LABS: BASO % 0.1 % (0.0-1.0); HEMATOCRIT 28.3 % (36.0-47.0); HEMOGLOBIN 8.7 g/dl (12.0-15.5); LYMPH # 0.3 10^3/uL (1.5-5.0); LYMPH % 2.8 % (24.0-44.0); MEAN CORPUSCULAR HEMOGLOBIN 27.9 pg (27.0-33.0); MEAN CORPUSCULAR HGB CONC 30.7 g/dl (32.0-36.5); MEAN CORPUSCULAR VOLUME 90.7 fl (80.0-96.0); MONO # 0.4 10^3/uL (0.0-0.8); MONO % 3.1 % (0.0-5.0); NEUTROPHILS # 11.1 10^3/uL (1.5-8.5); NEUTROPHILS % 92.5 % (36.0-66.0); PLATELET COUNT, AUTOMATED 242 10^3/uL (150-450); RED BLOOD COUNT 3.12 10^6/uL (4.00-5.40)
[2020-01-22 07:10] LABS: CREATININE FOR GFR 3.62 MG/DL (0.55-1.30); GLOMERULAR FILTRATION RATE 12.9 (>39); POTASSIUM SERUM 4.5 MEQ/L (3.5-5.1)
[2020-01-22] MEDS: HEPARIN SOD (PORCINE) 5000 UNITS/ML VIAL (J1644 PER 1000UNITS) SC SCH ×2 (10:14→21:13)
[2020-01-22] MEDS: predniSONE 20 MG TAB PO SCH ×2 (10:14→21:12)
[2020-01-22] MEDS: SUCRALFATE 1 GM TAB PO SCH ×3 (10:14→21:12)
[2020-01-22] MEDS: CALCITRIOL 0.25 MCG CAP (S0169) PO SCH (10:14)
[2020-01-22] MEDS: PANTOPRAZOLE 40MG TAB (PROTONIX) PO SCH (10:14)
[2020-01-22] MEDS: MULTIVITAMINS/MINERALS THERAP 1 TAB PO SCH (10:14)
[2020-01-22] MEDS: DOCUSATE SODIUM 100 MG CAP PO SCH ×2 (10:15→21:00)
[2020-01-22] MEDS: METOPROLOL SUCC (TopROL XL) 100MG *XL* TAB PO SCH (10:15)
[2020-01-22] MEDS: REMEDY PHYTOPLEX Z-GUARD PASTE 113GM TUBE (FROM STOREROOM PRODUCT) TOP SCH ×3 (10:16→21:00)
--- NOTE | 2020-01-22 11:53 | IPN ---
DATE OF SERVICE: 01/22/2020 SUBJECTIVE: The patient was seen and examined at the bedside today morning in the rehab unit. She is afebrile, hemodynamically stable. She denies any active complaints. She continues to gain more and more strength. Today is the patient's day of dialysis and she will be dialyzed in the afternoon. OBJECTIVE: VITAL SIGNS: Temperature is 97.4 degrees Fahrenheit, blood pressure 135/69, pulse is 61, respiratory rate of 18, saturating 97% on room air. INTAKE AND OUTPUT: There is no urine output recorded. Weight in the bed scale is not available. PHYSICAL EXAMINATION: GENERAL: The patient is awake, alert, oriented times three, sitting up in the sofa, in no apparent distress. HEAD AND NECK EXAM: Extraocular muscles intact. Pupils equally round and reactive to light. Mucous membranes are moist. Neck is supple. There is no jugular venous distention (JVD). She has a right internal jugular (IJ) tunneled hemodialysis catheter. CARDIOVASCULAR: S1, S2, regular rate. No edema of the bilateral lower extremities. RESPIRATORY: Chest is clear to auscultation bilaterally. Bilateral equal air entry. No rales or rhonchi. ABDOMEN: Soft, positive bowel sounds. Nontender. No organomegaly. MUSCULOSKELETAL: No clubbing or cyanosis. Pulses are 2+. LAB REVIEW: CBC showed WBC of 12, hemoglobin 8.7, platelets of 142. BMP showed sodium 136, potassium 4.5, chloride 101, bicarbonate 28, BUN 49, creatinine of 3.6. CURRENT INPATIENT MEDICATIONS: The patient's medications were all reviewed by myself. There is no change in the medications today as compared with yesterday. ASSESSMENT AND PLAN: 1. End-stage renal disease. The patient will be dialyzed in the afternoon. Ultrafiltration goal will be 1.5 liters as tolerated by blood pressure. 2. Anemia secondary to end-stage renal disease. Continue current dose of Venofer and Aranesp. Dose to be adjusted next week if hemoglobin level stays below target. 3. Microscopic polyangiitis. Continue prednisone 20 mg by mouth twice a day. Dose will be decreased this coming Monday. 4. Hypertension with hypertensive heart disease. Continue current dose of metoprolol, volume status is optimized.
[2020-01-22] MEDS ORDERED: HEPARIN 1,000 UNITS/ML 10ML VIAL (FOR RADIOLOGY& DIALYSIS ONLY)(J1644-10) XX ONE (12:15)
[2020-01-22] MEDS ORDERED: HEPARIN 1,000 UNITS/ML 10ML VIAL (FOR RADIOLOGY& DIALYSIS ONLY)(J1644-10) IV ONE (12:15)
--- NOTE | 2020-01-22 13:14 | IPNPDOC ---
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 REVIEW OF SYSTEMS: The following is a completed review of systems and has been reviewed. Review of systems otherwise unremarkable. PAIN: Patient self reports no pain EYES: No recent vision changes EARS, NOSE, & THROAT: No throat pain, or dysphagia, or rhinorrhea CARDIOVASCULAR: Denies chest pain or palpitations PULMONARY: Denies shortness of breath GASTROINTESTINAL:+constipation (improving) GENITOURINARY: denies dysuria, +oliguria MUSCULOSKELETAL: generalized weakness NEUROLOGICAL: no paresthesias HEMATOLOGICAL: denies easy bruising SKIN: right chest wall permacath PSYCHIATRIC: Unremarkable All other review of systems found to be negative. PHYSICAL EXAMINATION: VITAL SIGNS: Please see below. GENERAL: Pleasant and cooperative. No acute distress. thin HEENT: PERRL. Extraocular movements intact. Clear conjunctiva CARDIOVASCULAR: Regular rate and rhythm. No murmurs, rubs, or gallops LUNGS: Clear to auscultation bilaterally. No wheezes. No rhonchi ABDOMEN: Soft, nontender, nondistended. Positive bowel sounds. Normal active bowel sounds NEUROLOGICAL: Alert and oriented times three. Cranial nerves II through XII grossly intact. Sensation grossly intact EXTREMITIES: 5\5 strength bilateral upper extremities. 5\5 strength right lower extremity. 5/5 strength in left lower extremity. SKIN: right chest wall permacath, stage 2 sacral ulcer ASSESSMENT:79-year-old F with past medical history of granulomatosis with polyangiitis who presents status post encephalopathy in setting of ESRD and pneumonia PLAN: 1. Rehab- PT/OT advance gait and ADl, energy conservation, strengthen/s tretch/maintain all 4 extremities, fall recovery and dynamic balance training, ambulating with RW SBA level -Will consider [employer] for cognition 2. Neuro: recent episode of delirium and encephalopathy likely due to metabolic derangement in setting of ESRD and PNA, monitor and manage prn 3. cardiac: recent ECHO with degree of CHF and small pericardial effusion, patient not on fluid restriction, will defer to renal for fluid management -Afib c/u Metoprolol, not on AC at this time -medicine consult to assist with overall management 4. Resp: s/p course of antibiotics and IV steroids for bilateral pneumonia, encourage incentive spirometry, monitor for new or persistent infection -c/u prednisone 5. Renal: ESRD on dialysis, renal consulted -c/u calcitriol of hyperparathyroidism 6. GI ppx: protonix and sucralfate while on steroids 7. DVT ppx: heparin and Teds 8. Pain: Tylenol prn 9. Heme: anemia of chronic disease, renal managing c/u Venofer and Aranesp, recs appreciated 10. Skin: patient with stage 2 sacral ulcer present on admission, c/u at least TID barrier cream application 9. Dispo: 01-28-20 to home, progressing towards goals Allergies Coded Allergies: clarithromycin (Verified Allergy, Intermediate, rash, 01/08/20) Penicillins (Verified Allergy, Unknown, 01/08/20) cortisone (Verified Allergy, Unknown, 01/08/20) lisinopril (Verified Allergy, Unknown, 01/08/20) Vital Signs Vital Signs Date Time Temp Pulse Resp B/P (MAP) Pulse Ox O2 Delivery O2 Flow Rate FiO2 01/22/20 10:15 66 132/73 01/22/20 05:58 97.4 18 97 Room Air Laboratory Data CBC/BMP Laboratory Tests 01/22/20 06:38 Labs 24H Laboratory Tests 2 01/22/20 06:38: Immature Granulocyte % (Auto) 1.5, Neutrophils (%) (Auto) 92.5H, Lymphocytes (%) (Auto) 2.8L, Monocytes (%) (Auto) 3.1, Eosinophils (%) (Auto) 0.0, Basophils (%) (Auto) 0.1, Neutrophils # (Auto) 11.1H, Lymphocytes # (Auto) 0.3L, Monocytes # (Auto) 0.4, Eosinophils # (Auto) 0.0, Basophils # (Auto) 0.0, Nucleated Red Blood Cells % (auto) 0.0, Anion Gap 7L, Glomerular Filtration Rate 12.9L, Juan cium Level 8.0L Current Medications Current Medications Current Medications Medications (Trade) Dose Ordered Sig/Jaime Route PRN Reason Start Time Stop Time Status Last Admin Dose Admin Acetaminophen (Tylenol Tab) 650 mg Q4HP PRN PO fever/MILD PAIN (PS 1-4) 01/16/20 17:00 01/20/20 20:31 Bisacodyl (Dulcolax Suppository) 10 mg DAILYPRN PRN [place] CONSTIPATION 01/19/20 11:15 01/19/20 11:28 Calcitriol (Rocaltrol) 0.25 mcg DAILY PO 01/17/20 09:00 01/22/20 10:14 Darbepoetin Hebert (Aranesp (Dialysis Use)) 100 mcg HD IV 01/17/20 08:30 Docusate Sodium (Colace) 100 mg BID PO 01/16/20 21:00 01/20/20 20:31 Heparin Sodium (Porcine) (Heparin) 5,000 units Q12H SC 01/16/20 21:00 01/22/20 10:14 Iron (Venofer) 100 mg HD IV 01/17/20 08:30 01/23/20 08:31 Metoprolol Succinate (TopROL XL) 200 mg DAILY PO 01/17/20 09:00 01/22/20 10:15 Multivitamins (Theragram-M) 1 tab DAILY PO 01/17/20 09:00 01/22/20 10:14 Pantoprazole Sodium (Protonix) 40 mg DAILY PO 01/17/20 09:00 01/22/20 10:14 Prednisone (Deltasone) 20 mg BID PO 01/16/20 21:00 01/22/20 10:14 Senna (Senokot) 1 tab QHS PO 01/16/20 21:00 01/21/20 23:10 Sucralfate (Carafate) 1 gm TID PO 01/16/20 21:00 01/26/20 20:59 01/22/20 10:14 SOULEYMANE BAEZA MD Jan 22, 2020 13:14
[2020-01-22 16:15] VITALS: BP 126/64
[2020-01-22] MEDS: SENNA 8.6 MG TAB (SENOKOT) PO SCH (21:00)
[2020-01-22 22:00] VITALS: BP 152/72
[2020-01-23 06:00] VITALS: BP 123/77
[2020-01-23] MEDS: DOCUSATE SODIUM 100 MG CAP PO SCH ×2 (09:00→20:19)
[2020-01-23] MEDS: MULTIVITAMINS/MINERALS THERAP 1 TAB PO SCH (10:17)
[2020-01-23] MEDS: CALCITRIOL 0.25 MCG CAP (S0169) PO SCH (10:17)
[2020-01-23] MEDS: predniSONE 20 MG TAB PO SCH (10:17)
[2020-01-23] MEDS: PANTOPRAZOLE 40MG TAB (PROTONIX) PO SCH (10:17)
[2020-01-23] MEDS: SUCRALFATE 1 GM TAB PO SCH ×3 (10:17→20:19)
[2020-01-23] MEDS: HEPARIN SOD (PORCINE) 5000 UNITS/ML VIAL (J1644 PER 1000UNITS) SC SCH ×2 (10:18→20:20)
[2020-01-23] MEDS: METOPROLOL SUCC (TopROL XL) 100MG *XL* TAB PO SCH (10:18)
[2020-01-23] MEDS: REMEDY PHYTOPLEX Z-GUARD PASTE 113GM TUBE (FROM STOREROOM PRODUCT) TOP SCH ×3 (10:19→20:22)
--- NOTE | 2020-01-23 11:52 | IPNPDOC ---
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 She said she felt very lethargic today but is more awake now. REVIEW OF SYSTEMS: The following is a completed review of systems and has been reviewed. Review of systems otherwise unremarkable. PAIN: Patient self reports no pain EYES: No recent vision changes EARS, NOSE, & THROAT: No throat pain, or dysphagia, or rhinorrhea CARDIOVASCULAR: Denies chest pain or palpitations PULMONARY: Denies shortness of breath GASTROINTESTINAL:+constipation (improving) GENITOURINARY: denies dysuria, +oliguria MUSCULOSKELETAL: generalized weakness NEUROLOGICAL: no paresthesias HEMATOLOGICAL: denies easy bruising SKIN: right chest wall permacath PSYCHIATRIC: Unremarkable All other review of systems found to be negative. PHYSICAL EXAMINATION: VITAL SIGNS: Please see below. GENERAL: Pleasant and cooperative. No acute distress. thin HEENT: PERRL. Extraocular movements intact. Clear conjunctiva CARDIOVASCULAR: Regular rate and rhythm. No murmurs, rubs, or gallops LUNGS: Clear to auscultation bilaterally. No wheezes. No rhonchi ABDOMEN: Soft, nontender, nondistended. Positive bowel sounds. Normal active bow el sounds NEUROLOGICAL: Alert and oriented times three. Cranial nerves II through XII grossly intact. Sensation grossly intact EXTREMITIES: 5\5 strength bilateral upper extremities. 5\5 strength right lower extremity. 5/5 strength in left lower extremity. SKIN: right chest wall permacath, stage 2 sacral ulcer (healing) ASSESSMENT:79-year-old F with past medical history of granulomatosis with polyangiitis who presents status post encephalopathy in setting of ESRD and pneumonia PLAN: 1. Rehab- PT/OT advance gait and ADl, energy conservation, strengthen/stretch/maintain all 4 extremities, fall recovery and dynamic balance training, ambulating further with RW -Will consider A[employer] SALES ENGINEER for cognition 2. Neuro: recent episode of delirium and encephalopathy likely due to metabolic derangement in setting of ESRD and PNA, monitor and manage prn 3. cardiac: recent ECHO with degree of CHF and small pericardial effusion, patient not on fluid restriction, will defer to renal for fluid management -Afib c/u Metoprolol, not on AC at this time -medicine consult to assist with overall management 4. Resp: s/p course of antibiotics and IV steroids for bilateral pneumonia, encourage incentive spirometry, monitor for new or persistent infection -c/u prednisone 5. Renal: ESRD on dialysis, renal consulted -c/u calcitriol of hyperparathyroidism 6. GI ppx: protonix and sucralfate while on steroids 7. DVT ppx: heparin and Teds 8. Pain: Tylenol prn 9. Heme: anemia of chronic disease, renal managing c/u Venofer and Aranesp, recs appreciated 10. Skin: patient with stage 2 sacral ulcer present on admission, c/u at least TID barrier cream application 9. Dispo: 01-28-20 to home, progressing towards goals Allergies Coded Allergies: clarithromycin (Verified Allergy, Intermediate, rash, 01/08/20) Penicillins (Verified Allergy, Unknown, 01/08/20) cortisone (Verified Allergy, Unknown, 01/08/20) lisinopril (Verified Allergy, Unknown, 01/08/20) Vital Signs Vital Signs Date Time Temp Pulse Resp B/P (MAP) Pulse Ox O2 Delivery O2 Flow Rate FiO2 01/23/20 10:18 64 120/74 01/23/20 06:00 98.3 18 97 Room Air Current Medications Current Medications Current Medications Medications (Trade) Dose Ordered Sig/Jaime Route PRN Reason Start Time Stop Time Status Last Admin Dose Admin Acetaminophen (Tylenol Tab) 650 mg Q4HP PRN PO fever/MILD PAIN (PS 1-4) 01/16/20 17:00 01/20/20 20:31 Bisacodyl (Dulcolax Suppository) 10 mg DAILYPRN PRN [place] CONSTIPATION 01/19/20 11:15 01/19/20 11:28 Calcitriol (Rocaltrol) 0.25 mcg DAILY PO 01/17/20 09:00 01/23/20 10:17 Darbepoetin Hebert (Aranesp (Dialysis Use)) 100 mcg HD IV 01/17/20 08:30 Docusate Sodium (Colace) 100 mg BID PO 01/16/20 21:00 01/20/20 20:31 Heparin Sodium (Porcine) (Heparin) 5,000 units Q12H SC 01/16/20 21:00 01/23/20 10:18 Iron (Venofer) 100 mg HD IV 01/17/20 08:30 01/23/20 08:31 DC Metoprolol Succinate (TopROL XL) 200 mg DAILY PO 01/17/20 09:00 01/23/20 10:18 Miscellaneous (Unresolved Clarification Entry) SEE LABEL COMMENTS DAILY XX 01/23/20 09:00 Multivitamins (Theragram-M) 1 tab DAILY PO 01/17/20 09:00 01/23/20 10:17 Pantoprazole Sodium (Protonix) 40 mg DAILY PO 01/17/20 09:00 01/23/20 10:17 Prednisone (Deltasone) 20 mg BID PO 01/16/20 21:00 01/23/20 10:17 Senna (Senokot) 1 tab QHS PO 01/16/20 21:00 01/21/20 23:10 Sucralfate (Carafate) 1 gm TID PO 01/16/20 21:00 01/26/20 20:59 01/23/20 10:17 SOULEYMANE BAEZA MD Jan 23, 2020 11:52
[2020-01-23 14:00] VITALS: BP 132/72
--- NOTE | 2020-01-23 14:00 | IPN ---
DATE OF SERVICE: 01/23/2020 SUBJECTIVE: The patient was seen and examined at the bedside. She is afebrile, hemodynamically stable. She reports that she was feeling tired and fatigued overnight after getting dialysis and she had some leg cramps in the morning. She got dialyzed yesterday and 1.5 liters of fluid was removed. Weight in the bed scale is not available. OBJECTIVE: Vital Signs: Temperature is 98.3 degrees Fahrenheit, blood pressure 123/77, pulse is 61, respiratory rate of 18, saturating 97% on room air. Intake and output: Ultrafiltration with hemodialysis was 1.5 liters. PHYSICAL EXAMINATION: General: The patient is awake, alert, and oriented x3, sitting up in the sofa, in no apparent distress. Head and Neck Exam: Extraocular muscles intact. Pupils equally round and reactive to light. Mucous membranes are moist. Neck is supple. There is no jugular venous distention (JVD). She has a right internal jugular (IJ) tunneled hemodialysis catheter. Cardiovascular: S1, S2. Regular rate. No edema of the bilateral lower extremities. Respiratory: Chest is clear to auscultation bilaterally. Bilateral equal air entry. No rales or rhonchi. Abdomen: Soft. Positive bowel sounds. Nontender. No organomegaly. Musculoskeletal: No clubbing or cyanosis. Pulses are 2+. ADMINISTRATOR SOCIAL WELFARE: No focal deficit. Power is 5/5 in all extremities. LAB REVIEW: CBC is from yesterday and BMP is also from yesterday. CURRENT INPATIENT MEDICATIONS: The patient's medications were all reviewed by myself. There is no significant change in the medications today as compared with yesterday. ASSESSMENT/PLAN: 1. End-stage renal disease. The patient was dialyzed yesterday. She reports cramps and feeling tired after dialysis yesterday. Next time, ultrafiltration goal will be only 1 liter. 2. Anemia secondary to end-stage renal disease. Continue Aranesp with dialysis. Venofer has been stopped. 3. Microscopic polyangiitis. The patient is currently on 40 mg of prednisone daily. Dose will be decreased starting tomorrow morning. 4. Hypertension with hypertensive heart disease. Continue current dose of metoprolol.
[2020-01-23] MEDS: SENNA 8.6 MG TAB (SENOKOT) PO SCH (20:19)
[2020-01-23] MEDS: predniSONE 5 MG TAB PO SCH (20:20)
[2020-01-23 22:00] VITALS: BP 119/76
[2020-01-24 05:48] LABS: HEMATOCRIT 27.1 % (36.0-47.0); HEMOGLOBIN 8.6 g/dl (12.0-15.5); LYMPH # 0.3 10^3/uL (1.5-5.0); LYMPH % 2.9 % (24.0-44.0); MEAN CORPUSCULAR HGB CONC 31.7 g/dl (32.0-36.5); MEAN CORPUSCULAR VOLUME 91.2 fl (80.0-96.0); MONO # 0.4 10^3/uL (0.0-0.8); MONO % 3.5 % (0.0-5.0); NEUTROPHILS # 10.7 10^3/uL (1.5-8.5); NEUTROPHILS % 92.6 % (36.0-66.0); PLATELET COUNT, AUTOMATED 213 10^3/uL (150-450); RED BLOOD COUNT 2.97 10^6/uL (4.00-5.40); WHITE BLOOD COUNT 11.6 10^3/uL (4.0-10.0)
[2020-01-24 06:00] VITALS: BP_SYST 134; BP_SYST 94; BP_DIAS 58; BP_DIAS 90
[2020-01-24 06:13] LABS: CALCIUM LEVEL 8.3 MG/DL (8.8-10.2); CREATININE FOR GFR 3.3 MG/DL (0.55-1.30); GLOMERULAR FILTRATION RATE 14.4 (>39); POTASSIUM SERUM 4.3 MEQ/L (3.5-5.1)
[2020-01-24] MEDS: SUCRALFATE 1 GM TAB PO SCH ×3 (06:28→20:49)
[2020-01-24] MEDS: CALCITRIOL 0.25 MCG CAP (S0169) PO SCH (06:28)
[2020-01-24] MEDS: HEPARIN SOD (PORCINE) 5000 UNITS/ML VIAL (J1644 PER 1000UNITS) SC SCH ×2 (06:28→20:49)
[2020-01-24] MEDS: PANTOPRAZOLE 40MG TAB (PROTONIX) PO SCH (06:28)
[2020-01-24] MEDS: MULTIVITAMINS/MINERALS THERAP 1 TAB PO SCH (06:28)
[2020-01-24] MEDS: DOCUSATE SODIUM 100 MG CAP PO SCH ×2 (06:28→20:49)
[2020-01-24] MEDS: METOPROLOL SUCC (TopROL XL) 100MG *XL* TAB PO SCH (06:29)
[2020-01-24] MEDS: predniSONE 5 MG TAB PO SCH ×2 (06:31→20:49)
[2020-01-24] MEDS ORDERED: IRON SUCROSE 100MG 5ML VIAL (J1756 PER 1MG) IV SCH (07:45)
[2020-01-24] MEDS: REMEDY PHYTOPLEX Z-GUARD PASTE 113GM TUBE (FROM STOREROOM PRODUCT) TOP SCH ×3 (09:33→20:49)
[2020-01-24] MEDS ORDERED: HEPARIN 1,000 UNITS/ML 10ML VIAL (FOR RADIOLOGY& DIALYSIS ONLY)(J1644-10) IV ONE (10:00)
[2020-01-24] MEDS ORDERED: HEPARIN 1,000 UNITS/ML 10ML VIAL (FOR RADIOLOGY& DIALYSIS ONLY)(J1644-10) XX ONE (10:00)
[2020-01-24] MEDS ORDERED: FUROSEMIDE 20 MG TAB PO SCH (13:45)
--- NOTE | 2020-01-24 14:08 | IPN ---
DATE OF SERVICE: 01/24/2020 SUBJECTIVE: The patient was seen and examined today morning. She was sitting up in the sofa. She denies any active complaints. She reports better strength today as compared with yesterday. Blood pressures are within the acceptable range. The patient is due for hemodialysis today. OBJECTIVE: VITAL SIGNS: Temperature is 97.2 degrees Fahrenheit, blood pressure 134/90, pulse is 78, respiratory rate of 18, saturating 97% on room air. INTAKE AND OUTPUT: There is no urine output recorded. Weight in the bed scale is not available. PHYSICAL EXAMINATION: GENERAL: The patient is awake, alert, oriented times three, sitting up in the sofa, in no apparent distress. HEAD AND NECK EXAM: Extraocular muscles intact. Pupils equally round and reactive to light. Mucous membranes are moist. Neck is supple. She has a right internal jugular (IJ) tunneled hemodialysis catheter. CARDIOVASCULAR: S1, S2, regular rate. No edema of the bilateral lower extremities. RESPIRATORY: Chest is clear to auscultation bilaterally. Bilateral equal air entry. No rales or rhonchi. ABDOMEN: Soft, positive bowel sounds. Nontender. No organomegaly. MUSCULOSKELETAL: No clubbing or cyanosis. Pulses are 2+. CENTRAL NERVOUS SYSTEM (WARPER FIXER): No focal deficit. Power is 5/5 in all extremities. LAB REVIEW: Complete blood count (CBC) showed WBC 11.6, hemoglobin 8.6, platelets are 213. Basic metabolic panel (BMP) showed sodium 134, potassium 4.3, chloride 100, bicarbonate 28, BUN 49, creatinine is 3.3. CURRENT MEDICATIONS: The patient's medications were all reviewed by me. Her prednisone was changed to 15 mg by mouth twice a day starting today morning. No other change in the medications today as compared with yesterday. ASSESSMENT AND PLAN: 1. End-stage renal disease. The patient is due for dialysis today. She felt very weak with 1.5 liter ultrafiltration (UF). Today the UF goal will be 1 liter. 2. Anemia secondary to end-stage renal disease. Continue Venofer and Aranesp with dialysis. She has received five doses of Venofer so far. She will need five more doses. 3. Microscopic polyangiitis. The patient's symptoms are getting better. Breathing is improved. Continue current dose of prednisone 15 mg by mouth twice a day. 4. Hypertension. Blood pressure is controlled with metoprolol.
--- NOTE | 2020-01-24 15:28 | IPNPDOC ---
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 REVIEW OF SYSTEMS: The following is a completed review of systems and has been reviewed. Review of systems otherwise unremarkable. PAIN: Patient self reports no pain EYES: No recent vision changes EARS, NOSE, & THROAT: No throat pain, or dysphagia, or rhinorrhea CARDIOVASCULAR: Denies chest pain or palpitations PULMONARY: Denies shortness of breath GASTROINTESTINAL:+constipation (improving) GENITOURINARY: denies dysuria, +oliguria MUSCULOSKELETAL: generalized weakness NEUROLOGICAL: no paresthesias HEMATOLOGICAL: denies easy bruising SKIN: right chest wall permacath PSYCHIATRIC: Unremarkable All other review of systems found to be negative. PHYSICAL EXAMINATION: VITAL SIGNS: Please see below. GENERAL: Pleasant and cooperative. No acute distress. thin HEENT: PERRL. Extraocular movements intact. Clear conjunctiva CARDIOVASCULAR: Regular rate and rhythm. No murmurs, rubs, or gallops LUNGS: Clear to auscultation bilaterally. No wheezes. No rhonchi ABDOMEN: Soft, nontender, nondistended. Positive bowel sounds. Normal active bowel sounds NEUROLOGICAL: Alert and oriented times three. Cranial nerves II through XII grossly intact. Sensation grossly intact EXTREMITIES: 5\5 strength bilateral upper extremities. 5\5 strength right lower extremity. 5/5 strength in left lower extremity. SKIN: right chest wall permacath, stage 2 sacral ulcer (healing) ASSESSMENT:79-year-old F with past medical history of granulomatosis with polyangiitis who presents status post encephalopathy in setting of ESRD and pneumonia PLAN: 1. Rehab- PT/OT advance gait and ADl, energy conservation, strengthen/stretch/maintain all 4 extremities, fall recovery and dynamic balance training, ambulating further with RW, room privileges today -Will consider PHYSICIAN CREDENTIALING SPECIALIST for cognition 2. Neuro: recent episode of delirium and encephalopathy likely due to metabolic derangement in setting of ESRD and PNA-improving, c/u to monitor and manage prn 3. cardiac: recent ECHO with degree of CHF and small pericardial effusion, patient not on fluid restriction, will defer to renal for fluid management -Afib c/u Metoprolol, not on AC at this time -medicine consult to assist with overall management 4. Resp: s/p course of antibiotics and IV steroids for bilateral pneumonia, encourage incentive spirometry, monitor for new or persistent infection -c/u prednisone, tapering 5. Renal: ESRD on dialysis, renal consulted -c/u calcitriol of hyperparathyroidism 6. GI ppx: protonix and sucralfate while on steroids 7. DVT ppx: heparin and Teds 8. Pain: Tylenol prn 9. Heme: anemia of chronic disease, renal managing c/u Venofer and Barbara, recs appreciated 10. Skin: patient with stage 2 sacral ulcer present on admission, c/u at least TID barrier cream application 9. Dispo: 01-28-20 to home, progressing towards goals Allergies Coded Allergies: clarithromycin (Verified Allergy, Intermediate, rash, 01/08/20) Penicillins (Verified Allergy, Unknown, 01/08/20) cortisone (Verified Allergy, Unknown, 01/08/20) lisinopril (Verified Allergy, Unknown, 01/08/20) Vital Signs Vital Signs Date Time Temp Pulse Resp B/P (MAP) Pulse Ox O2 Delivery O2 Flow Rate FiO2 01/24/20 06:29 134/90 01/24/20 06:00 97.2 78 18 97 Room Air Laboratory Data CBC/BMP Laboratory Tests 01/24/20 05:25 Labs 24H Laboratory Tests 2 01/24/20 05:25: Immature Granulocyte % (Auto) 1.0, Neutrophils (%) (Auto) 92.6H, Lymphocytes (%) (Auto) 2.9L, Monocytes (%) (Auto) 3.5, Eosinophils (%) (Auto) 0.0, Basophils (%) (Auto) 0.0, Neutrophils # (Auto) 10.7H, Lymphocytes # (Auto) 0.3L, Monocytes # (Auto) 0.4, Eosinophils # (Auto) 0.0, Basophils # (Auto) 0.0, Nucleated Red Blood Cells % (auto) 0.0, Anion Gap 6L, Glomerular Filtration Rate 14.4L, Calcium Level 8.3L Current Medications Current Medications Current Medications Medications (Trade) Dose Ordered Sig/Jaime Route PRN Reason Start Time Stop Time Status Last Admin Dose Admin Acetaminophen (Tylenol Tab) 650 mg Q4HP PRN PO fever/MILD PAIN (PS 1-4) 01/16/20 17:00 01/20/20 20:31 Bisacodyl (Dulcolax Suppository) 10 mg DAILYPRN PRN [place] CONSTIPATION 01/19/20 11:15 01/19/20 11:28 Calcitriol (Rocaltrol) 0.25 mcg DAILY PO 01/17/20 09:00 01/24/20 06:28 Darbepoetin Hebert (Aranesp (Dialysis Use)) 100 mcg HD IV 01/17/20 08:30 Docusate Sodium (Colace) 100 mg BID PO 01/16/20 21:00 01/24/20 06:28 Furosemide (Lasix) 20 mg DAILY PO 01/24/20 13:45 Heparin Sodium (Porcine) (Heparin) 5,000 units Q12H SC 01/16/20 21:00 01/24/20 06:28 Iron (Venofer) 100 mg HD IV 01/17/20 08:30 01/23/20 08:31 DC Iron (Venofer) 100 mg HD IV 01/24/20 07:45 Metoprolol Succinate (TopROL XL) 200 mg DAILY PO 01/17/20 09:00 01/24/20 06:29 Miscellaneous (Unresolved Clarification Entry) SEE LABEL COMMENTS DAILY XX 01/23/20 09:00 01/23/20 11:52 DC Multivitamins (Theragram-M) 1 tab DAILY PO 01/17/20 09:00 01/24/20 06:28 Pantoprazole Sodium (Protonix) 40 mg DAILY PO 01/17/20 09:00 01/24/20 06:28 Prednisone (Deltasone) 15 mg BID PO 01/23/20 21:00 01/24/20 06:31 Prednisone (Deltasone) 20 mg BID PO 01/16/20 21:00 01/23/20 13:51 DC 01/23/20 10:17 Senna (Senokot) 1 tab QHS PO 01/16/20 21:00 01/23/20 20:19 Sucralfate (Carafate) 1 gm TID PO 01/16/20 21:00 01/26/20 20:59 01/24/20 06:28 SOULEYMANE BAEZA MD Jan 24, 2020 15:28
[2020-01-24 15:53] VITALS: BP 198/82
[2020-01-24] MEDS ORDERED: amLODIPine 5 MG TAB PO ONE ×2 (16:00→18:00)
[2020-01-24 20:00] VITALS: BP 123/71
[2020-01-24] MEDS: SENNA 8.6 MG TAB (SENOKOT) PO SCH (20:49)
[2020-01-25 06:00] VITALS: BP 131/79
[2020-01-25] MEDS: PANTOPRAZOLE 40MG TAB (PROTONIX) PO SCH (08:50)
[2020-01-25] MEDS: SUCRALFATE 1 GM TAB PO SCH ×3 (08:50→21:00)
[2020-01-25] MEDS: MULTIVITAMINS/MINERALS THERAP 1 TAB PO SCH (08:50)
[2020-01-25] MEDS: METOPROLOL SUCC (TopROL XL) 100MG *XL* TAB PO SCH (08:51)
[2020-01-25] MEDS: CALCITRIOL 0.25 MCG CAP (S0169) PO SCH (08:51)
[2020-01-25] MEDS: predniSONE 5 MG TAB PO SCH ×2 (08:51→20:59)
[2020-01-25] MEDS: DOCUSATE SODIUM 100 MG CAP PO SCH ×2 (08:51→21:00)
[2020-01-25] MEDS: HEPARIN SOD (PORCINE) 5000 UNITS/ML VIAL (J1644 PER 1000UNITS) SC SCH ×2 (08:52→20:59)
[2020-01-25] MEDS: REMEDY PHYTOPLEX Z-GUARD PASTE 113GM TUBE (FROM STOREROOM PRODUCT) TOP SCH ×3 (08:52→21:01)
[2020-01-25 14:00] VITALS: BP 132/79
[2020-01-25] MEDS: ACETAMINOPHEN TAB 650MG DOSE (2X325MG) PO PRN ×2 (14:15→21:00)
[2020-01-25 20:00] VITALS: BP 132/81
[2020-01-25] MEDS: SENNA 8.6 MG TAB (SENOKOT) PO SCH (20:59)
--- NOTE | 2020-01-25 21:04 | IPN ---
DATE: 01/25/2020 Ms. Ocampo is seen this morning on her bedside. She is feeling a lot better now and denies any dyspnea, chest pain, nausea, or vomiting. She reports that she has been able to walk with the help of a walker out in the hallway. She did have low-grade fever this morning, and nursing staff report that she just received Tylenol. The patient has started hemodialysis during this admission and was dialyzed yesterday. She was also given steroids for possible vasculitis and lung involvement. Her prednisone dose has been tapered down, and her symptoms have improved significantly. PHYSICAL EXAMINATION: Temperature 99.1 degrees Fahrenheit, heart rate 62 per minute, respiratory rate 18 per minute, blood pressure 131/79 mm of mercury, and oxygen saturation 98% on room air. Head is atraumatic. Neck is supple and without jugular venous distention (JVD) or thyroid enlargement. She has no oral thrush or ulcers. Dialysis catheter is intact without any signs of infection or bleeding on right upper chest. Heart sounds are regular, and there is no pericardial friction rub. Lungs sound clear to auscultation bilaterally. Abdomen is soft and nontender. Bowel sounds are normal. Extremities have no cyanosis or clubbing. Neurologically she is awake, alert, and oriented times three. Labs from yesterday showed WBC count 11.6, hemoglobin 8.6, and hematocrit 27.1. Her sodium was 134 and potassium 4.3. BUN 49 and creatinine 3.30. Glucose 131 and calcium 8.3. Her medications are reviewed, and no changes are noted over last to 24 hours. She is currently receiving: - calcitriol 0.25 mcg daily - Aranesp 100 mcg once a week - Colace 100 mg twice a day - heparin 5000 units every 12 hours - Venofer 100 mg with each dialysis - metoprolol 200 mg daily - multivitamin tablet daily - Protonix 40 mg daily - prednisone 15 mg twice a day - Carafate 1 gram twice a day - Senokot one tablet at bedtime PROBLEMS: 1. End-stage renal disease. The patient started hemodialysis during this admission and has done very well. She was dialyzed yesterday, and her next dialysis will be scheduled for Monday. 2. Anemia. Her anemia is stable at present, and she is receiving intravenous iron and once a week Aranesp. We will continue with the same while her anemia is being monitored. 3. Microscopic polyangiitis. Her symptoms have improved significantly, and she remains on prednisone 15 mg twice a day. In view of her very frail condition and high risk for infections, no other immunosuppressive therapy was started as yet. We are watching her closely and continue to taper her prednisone gradually. 4. Hypertension. Blood pressure control has improved, and current antihypertensives will be continued. 5. Fever. She has low-grade fever without any obvious other symptoms. At present, we will continue to monitor and use Tylenol as needed. We will check her labs on Monday, including a complete blood count (CBC). If her fever gets worse, then certainly blood cultures will be drawn and chest x-ray will be repeated. She has no cough at all.
[2020-01-26 05:20] VITALS: BP 145/80
[2020-01-26] MEDS: MULTIVITAMINS/MINERALS THERAP 1 TAB PO SCH (07:25)
[2020-01-26] MEDS: CALCITRIOL 0.25 MCG CAP (S0169) PO SCH (07:25)
[2020-01-26] MEDS: METOPROLOL SUCC (TopROL XL) 100MG *XL* TAB PO SCH (07:25)
[2020-01-26] MEDS: PANTOPRAZOLE 40MG TAB (PROTONIX) PO SCH (07:25)
[2020-01-26] MEDS: DOCUSATE SODIUM 100 MG CAP PO SCH ×2 (07:26→20:09)
[2020-01-26] MEDS: predniSONE 5 MG TAB PO SCH ×2 (07:26→20:09)
[2020-01-26] MEDS: REMEDY PHYTOPLEX Z-GUARD PASTE 113GM TUBE (FROM STOREROOM PRODUCT) TOP SCH ×3 (07:26→20:10)
[2020-01-26] MEDS: HEPARIN SOD (PORCINE) 5000 UNITS/ML VIAL (J1644 PER 1000UNITS) SC SCH ×2 (07:26→20:08)
[2020-01-26] MEDS: SUCRALFATE 1 GM TAB PO SCH ×2 (07:27→15:29)
[2020-01-26 14:00] VITALS: BP 127/72
--- NOTE | 2020-01-26 15:26 | IPN ---
DATE: 01/26/2020 Mrs. Ocampo is seen this afternoon on her bedside. She is sitting in the chair after eating her lunch. She is feeling better and low grade fever that she had yesterday has resolved. She denies any dyspnea, chest pain, nausea or vomiting. She reports that she has been able to climb 12 stairs and walk in the hallway with the help of walker. She is anticipating going home on January 27. PHYSICAL EXAMINATION Temperature 97.6 degrees Fahrenheit, heart rate 60 per minute and respiratory rate 18 per minute. Blood pressure 145/80 mmHg and oxygen saturation 96% on room air. Head is atraumatic. She is chronically ill looking with loss of facial fat but not in any acute distress. Neck veins are not abnormally distended. Dialysis catheter in right internal jugular vein is intact without any signs of infection. Heart sounds are regular and lungs sound clear to auscultation. Abdomen is soft and nontender and bowel sounds are normal. Extremities have no cyanosis or clubbing. Neurologically, she is awake, alert and at her baseline mentation without a focal deficit. The patient did not have any new labs and prior labs have been already reviewed. PROBLEMS: 1. End-stage renal disease. The patient is now on maintenance hemodialysis and we plan to dialyze her tomorrow. She was last dialyzed on Monday. 2 Anemia. Her anemia is moderate and stable. There is no emergent indication for transfusion. Her CBC will be checked tomorrow, and we will continue with intravenous iron infusion with each dialysis and also weekly dose of Aranesp. 3. Hypertension. Blood pressure has been very well controlled on current medications and no changes are being made today. 4. Microscopic polyangiitis. The patient is now on tapering dose of prednisone and is currently on 15 mg twice a day. We will continue with gradual taper and not consider any other immunosuppressive at this point. In the past, she has used mycophenolate but did have side effects, and she is very resistant to retry it. She is not suitable for any other aggressive immunosuppressive therapy at this point due to her frail condition. 5. Generalized weakness and deconditioning. She is making good progress with rehabilitation and anticipating going to home on January 27.
[2020-01-26 19:58] VITALS: BP 138/75
[2020-01-26] MEDS: ACETAMINOPHEN TAB 650MG DOSE (2X325MG) PO PRN (20:08)
[2020-01-26] MEDS: SENNA 8.6 MG TAB (SENOKOT) PO SCH (20:09)
[2020-01-27 05:13] VITALS: BP 150/80
[2020-01-27 06:51] LABS: HEMATOCRIT 28.3 % (36.0-47.0); LYMPH # 0.2 10^3/uL (1.5-5.0); LYMPH % 2.3 % (24.0-44.0); MEAN CORPUSCULAR HEMOGLOBIN 29.4 pg (27.0-33.0); MEAN CORPUSCULAR HGB CONC 31.8 g/dl (32.0-36.5); MEAN CORPUSCULAR VOLUME 92.5 fl (80.0-96.0); MONO # 0.3 10^3/uL (0.0-0.8); MONO % 2.8 % (0.0-5.0); NEUTROPHILS # 9.9 10^3/uL (1.5-8.5); NEUTROPHILS % 94.2 % (36.0-66.0); PLATELET COUNT, AUTOMATED 179 10^3/uL (150-450); RED BLOOD COUNT 3.06 10^6/uL (4.00-5.40); WHITE BLOOD COUNT 10.5 10^3/uL (4.0-10.0)
[2020-01-27 07:22] LABS: CALCIUM LEVEL 8.2 MG/DL (8.8-10.2); CREATININE FOR GFR 4.19 MG/DL (0.55-1.30); GLOMERULAR FILTRATION RATE 10.9 (>39); POTASSIUM SERUM 5.2 MEQ/L (3.5-5.1)
[2020-01-27] MEDS: CALCITRIOL 0.25 MCG CAP (S0169) PO SCH (09:51)
[2020-01-27] MEDS: PANTOPRAZOLE 40MG TAB (PROTONIX) PO SCH (09:51)
[2020-01-27] MEDS: HEPARIN SOD (PORCINE) 5000 UNITS/ML VIAL (J1644 PER 1000UNITS) SC SCH ×2 (09:51→20:02)
[2020-01-27] MEDS: DOCUSATE SODIUM 100 MG CAP PO SCH ×2 (09:51→20:02)
[2020-01-27] MEDS: REMEDY PHYTOPLEX Z-GUARD PASTE 113GM TUBE (FROM STOREROOM PRODUCT) TOP SCH ×3 (09:52→20:02)
[2020-01-27] MEDS: predniSONE 10 MG TAB PO SCH ×2 (09:52→20:02)
[2020-01-27] MEDS: METOPROLOL SUCC (TopROL XL) 100MG *XL* TAB PO SCH (09:52)
[2020-01-27] MEDS ORDERED: HEPARIN 1,000 UNITS/ML 10ML VIAL (FOR RADIOLOGY& DIALYSIS ONLY)(J1644-10) XX ONE (11:00)
[2020-01-27] MEDS ORDERED: HEPARIN 1,000 UNITS/ML 10ML VIAL (FOR RADIOLOGY& DIALYSIS ONLY)(J1644-10) IV ONE (11:00)
[2020-01-27] MEDS ORDERED: ROCA0.25 PO (12:10)
[2020-01-27] MEDS ORDERED: PRED10TA2 PO (12:10)
[2020-01-27] MEDS ORDERED: TRIPCAP PO (12:10)
[2020-01-27] MEDS ORDERED: METO1TAB33 PO (12:10)
[2020-01-27] MEDS ORDERED: NITR4TASL SL (12:10)
[2020-01-27] MEDS ORDERED: PANT40TA3 PO (12:11)
--- NOTE | 2020-01-27 12:14 | IPNPDOC ---
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 She reports she forgets to take her medications and is working on this in OT. REVIEW OF SYSTEMS: The following is a completed review of systems and has been reviewed. Review of systems otherwise unremarkable. PAIN: Patient self reports no pain EYES: No recent vision changes EARS, NOSE, & THROAT: No throat pain, or dysphagia, or rhinorrhea CARDIOVASCULAR: Denies chest pain or palpitations PULMONARY: Denies shortness of breath GASTROINTESTINAL:+constipation (improving) GENITOURINARY: denies dysuria, +oliguria MUSCULOSKELETAL: generalized weakness NEUROLOGICAL: no paresthesias HEMATOLOGICAL: denies easy bruising SKIN: right chest wall permacath PSYCHIATRIC: Unremarkable All other review of systems found to be negative. PHYSICAL EXAMINATION: VITAL SIGNS: Please see below. GENERAL: Pleasant and cooperative. No acute distress. thin HEENT: PERRL. Extraocular movements intact. Clear conjunctiva CARDIOVASCULAR: Regular rate and rhythm. No murmurs, rubs, or gallops LUNGS: Clear to auscultation bilaterally. No wheezes. No rhonchi ABDOMEN: Soft, nontender, nondistended. Positive bowel sounds. Normal active bowel sounds NEUROLOGICAL: Alert and oriented times three. Cranial nerves II through XII grossly intact. Sensation grossly intact EXTREMITIES: 5\5 strength bilateral upper extremities. 5\5 strength right lower extremity. 5/5 strength in left lower extremity. SKIN: right chest wall permacath, stage 2 sacral ulcer (healing) ASSESSMENT:79-year-old F with past medical history of granulomatosis with polyangiitis who presents status post encephalopathy in setting of ESRD and pneumonia PLAN: 1. Rehab- PT/OT advance gait and ADl, energy conservation, strengthen/stretch/maintain all 4 extremities, fall recovery and dynamic balance training, ambulating further with RW, c/u room privileges -Will consider IRRIGATIONIST for cognition 2. Neuro: recent episode of delirium and encephalopathy likely due to metabolic derangement in setting of ESRD and PNA-improving, c/u to monitor and manage prn 3. cardiac: recent ECHO with degree of CHF and small pericardial effusion, patient not on fluid restriction, will defer to renal for fluid management -Afib c/u Metoprolol, not on AC at this time -medicine consult to assist with overall management 4. Resp: s/p course of antibiotics and IV steroids for bilateral pneumonia, encourage incentive spirometry, monitor for new or persistent infection-stable -c/u prednisone, tapering 5. Renal: ESRD on dialysis, renal consulted -c/u calcitriol of hyperparathyroidism -Hyperkalemia 5.2 today, but getting dialyzed, f/u tomorrow prior to d/c 6. GI ppx: protonix -sucralfate d/c'd per renal 7. DVT ppx: heparin and Teds 8. Pain: Tylenol prn 9. Heme: anemia of chronic disease, renal managing c/u Venofer and Barbara, recs appreciated 10. Skin: patient with stage 2 sacral ulcer present on admission, c/u at least TID barrier cream application -will refer to wound care 9. Dispo: 01-28-20 to home, progressing towards goals Allergies Coded Allergies: clarithromycin (Verified Allergy, Intermediate, rash, 01/08/20) Penicillins (Verified Allergy, Unknown, 01/08/20) cortisone (Verified Allergy, Unknown, 01/08/20) lisinopril (Verified Allergy, Unknown, 01/08/20) Vital Signs Vital Signs Date Time Temp Pulse Resp B/P (MAP) Pulse Ox O2 Delivery O2 Flow Rate FiO2 01/27/20 09:52 64 146/82 01/27/20 05:13 98.1 18 98 Room Air Laboratory Data CBC/BMP Laboratory Tests 01/27/20 06:39 Labs 24H Laboratory Tests 2 01/27/20 06:39: Immature Granulocyte % (Auto) 0.7, Neutrophils (%) (Auto) 94.2H, Lymphocytes (%) (Auto) 2.3L, Monocytes (%) (Auto) 2.8, Eosinophils (%) (Auto) 0.0, Basophils (%) (Auto) 0.0, Neutrophils # (Auto) 9.9H, Lymphocytes # (Auto) 0.2L, Monocytes # (Auto) 0.3, Eosinophils # (Auto) 0.0, Basophils # (Auto) 0.0, Nucleated Red Blood Cells % (auto) 0.0, Anion Gap 8, Glomerular Filtration Rate 10.9L, Calcium Level 8.2L Current Medications Current Medications Current Medications Medications (Trade) Dose Ordered Sig/Jaime Route PRN Reason Start Time Stop Time Status Last Admin Dose Admin Acetaminophen (Tylenol Tab) 650 mg Q4HP PRN PO fever/MILD PAIN (PS 1-4) 01/16/20 17:00 01/26/20 20:08 Bisacodyl (Dulcolax Suppository) 10 mg DAILYPRN PRN ID CONSTIPATION 01/19/20 11:15 01/19/20 11:28 Calcitriol (Rocaltrol) 0.25 mcg DAILY PO 01/17/20 09:00 01/27/20 09:51 Darbepoetin Hebert (Aranesp (Dialysis Use)) 100 mcg HD IV 01/17/20 08:30 Docusate Sodium (Colace) 100 mg BID PO 01/16/20 21:00 01/27/20 09:51 Furosemide (Lasix) 20 mg DAILY PO 01/24/20 13:45 01/24/20 15:51 DC Heparin Sodium (Porcine) (Heparin) 5,000 units Q12H SC 01/16/20 21:00 01/27/20 09:51 Iron (Venofer) 100 mg HD IV 01/17/20 08:30 01/23/20 08:31 DC Iron (Venofer) 100 mg HD IV 01/24/20 07:45 Metoprolol Succinate (TopROL XL) 200 mg DAILY PO 01/17/20 09:00 01/27/20 09:52 Miscellaneous (Unresolved Clarification Entry) SEE LABEL COMMENTS DAILY XX 01/23/20 09:00 01/23/20 11:52 DC Multivitamins (Theragram-M) 1 tab DAILY PO 01/17/20 09:00 01/27/20 09:43 DC 01/26/20 07:25 Pantoprazole Sodium (Protonix) 40 mg DAILY PO 01/17/20 09:00 01/27/20 09:51 Prednisone (Deltasone) 10 mg BID PO 01/27/20 09:00 01/27/20 09:52 Prednisone (Deltasone) 15 mg BID PO 01/23/20 21:00 01/27/20 07:37 DC 01/26/20 20:09 Prednisone (Deltasone) 20 mg BID PO 01/16/20 21:00 01/23/20 13:51 DC 01/23/20 10:17 Senna (Senokot) 1 tab QHS PO 01/16/20 21:00 01/26/20 20:09 Sucralfate (Carafate) 1 gm TID PO 01/16/20 21:00 01/26/20 20:59 DC 01/26/20 15:29 Vitamin B Complex/ Vit C/Folic Acid (Nephro-Leslie Rx) 1 tab DAILY PO 01/27/20 09:00 SOULEYMANE BAEZA MD Jan 27, 2020 12:14
--- NOTE | 2020-01-27 12:32 | IPN ---
DATE OF VISIT: 01/27/2020 Mrs. Ocampo is seen this morning on her bedside. She is sitting in the chair at the time of my visit. She reports that she just finished her physical therapy and feeling tired. She denies any dyspnea, chest pain, nausea or vomiting. She reports that her appetite is now much better and she is eating her meals 100%. On physical exam, temperature 98 degrees Fahrenheit, heart rate 64 per minute and respiratory rate 18 per minute. Blood pressure 146/82 mmHg and oxygen saturation 98% on room air. Head is atraumatic. Neck supple and jugular venous distention (JVD) is mildly elevated. Hemodialysis catheter is present in right internal jugular vein without any signs of infection. Heart sounds are regular and lungs clear to auscultation bilaterally. Abdomen soft and nontender and bowel sounds are normal. Extremities have no cyanosis or clubbing. Neurologically, she is awake, alert and at her baseline mentation. Today's labs show WBC count 10.5, hemoglobin 9.0 and hematocrit 28.3. Platelets 179. Sodium 134, potassium 5.2, CO2 25, BUN 77 and creatinine 4.19. Glucose 146 and calcium 8.2. PROBLEMS: 1. End-stage renal disease. Patient is regularly dialyzed on Monday, Monday, and Monday schedule. She will be dialyzed this afternoon. She will continue with outpatient dialysis after discharge. 2. Hyponatremia. Mild hyponatremia is related to end-stage renal disease and likely to correct with dialysis. No other intervention is indicated. 3. Hyperkalemia. She has mild hyperkalemia, which is also related to end-stage renal disease and will be corrected with dialysis. No other specific treatment is indicated. 4. Anemia. Her anemia is gradually improving and she is receiving intravenous Venofer 100 mg with each dialysis in addition to Aranesp 100 mcg once a week which will be continued. She will complete 10 doses of Venofer. Anemia is improving and does not need any transfusion at this point. 5. Hypertension. Blood pressure is very well controlled on current antihypertensive medications and will continue with the same. 6. Microscopic polyangiitis. Patient is currently on prednisone with tapering dose and I am going to cut it down to 10 mg twice a day. We will continue to gradually taper it down to 5 mg daily. 7. Generalized weakness and disposition. Patient is improving with acute rehab. She is anticipating discharge to home tomorrow. She will return for next regular hemodialysis on Monday as an outpatient.
[2020-01-27 16:00] VITALS: BP 143/88
[2020-01-27] MEDS: NEPHRO-VIT TAB (NEPHROCAPS) PO SCH (16:35)
[2020-01-27 19:23] VITALS: BP 150/70
[2020-01-27] MEDS: SENNA 8.6 MG TAB (SENOKOT) PO SCH (20:02)
[2020-01-27] MEDS: ACETAMINOPHEN TAB 650MG DOSE (2X325MG) PO PRN (20:02)
[2020-01-27] MEDS ORDERED: CALCIUM CARBONATE 500 MG CHEW U/D PO ONE (22:00)
[2020-01-28 06:53] VITALS: BP 146/81
[2020-01-28 07:02] LABS: CALCIUM LEVEL 8.2 MG/DL (8.8-10.2); CREATININE FOR GFR 2.54 MG/DL (0.55-1.30); GLOMERULAR FILTRATION RATE 19.5 (>39); POTASSIUM SERUM 4.6 MEQ/L (3.5-5.1)
[2020-01-28 08:17] VITALS: BP 134/81
[2020-01-28] MEDS: HEPARIN SOD (PORCINE) 5000 UNITS/ML VIAL (J1644 PER 1000UNITS) SC SCH (08:17)
[2020-01-28] MEDS: CALCITRIOL 0.25 MCG CAP (S0169) PO SCH (08:17)
[2020-01-28] MEDS: NEPHRO-VIT TAB (NEPHROCAPS) PO SCH (08:17)
[2020-01-28] MEDS: METOPROLOL SUCC (TopROL XL) 100MG *XL* TAB PO SCH (08:17)
[2020-01-28] MEDS: PANTOPRAZOLE 40MG TAB (PROTONIX) PO SCH (08:17)
[2020-01-28] MEDS: predniSONE 10 MG TAB PO SCH (08:18)
[2020-01-28] MEDS: DOCUSATE SODIUM 100 MG CAP PO SCH (08:18)
[2020-01-28] MEDS: REMEDY PHYTOPLEX Z-GUARD PASTE 113GM TUBE (FROM STOREROOM PRODUCT) TOP SCH (08:19)
--- NOTE | 2020-01-28 10:29 | PMRDS ---
DATE OF ADMISSION: 01/16/2020 DATE OF DISCHARGE: 01/28/2020 CHIEF COMPLAINT/DISCHARGE DIAGNOSIS: Encephalopathy with end-stage renal disease. HISTORY OF PRESENT ILLNESS: 79F pmh ESRD, granulomatosis with polyangiitis, anemia of chronic disease, HTN, PAF not on AC who presented to [facility] ED on 01-08-20 per renal recs out of concern for worsening kidney function and decreased mobility. She had hypoxia with CXR revealing, Extensive bilateral perihilar infiltrates most consistent with pneumonia although pulmonary edema is a possibility and started on vancomycin, Levaquin and IV steroids, with Resp panel and blood cultures negative. PermCath was placed and she began dialysis which on 01-11-20 was complicated by Afib with RVR requiring IV beta-blockade. Patient had encephalopathy during her hospital stay with episodes of delirium. She had impairments in mobility and ADLs well below her baseline and was deemed medically appropriate for discharge to ARU on 01-16-20. PAST MEDICAL HISTORY: As per history of present illness (HPI). HOSPITAL COURSE: The patient was admitted and enrolled in a comprehensive physical therapy (PT)/occupational therapy (OT) program. She received 24-hour nursing supervision, and weekly team meetings were held to discuss her progress. The patient was maintained on a steroid taper following a course of antibiotics for her bilateral pneumonia with overall improvement in her breathing and endurance in therapy. She received dialysis and was followed closely by renal, who treated her anemia of chronic disease with Venofer and Aranesp. The patient presented to the unit with a stage II sacral ulcer that improved, however, did not resolve with barrier cream application. The patient was instructed to followup with wound care upon discharge. The patient's mentation during her hospital course gradually improved, and she was deemed medically and functionally stable to return home. DISCHARGE MEDICATIONS: As per instructions. FUNCTIONAL HISTORY ON DISCHARGE: The patient was modified independent for ambulation with a rolling walker and for stairs. Able to ambulate 200 feet. In occupational therapy, she was modified independent for upper and lower body dressing, toileting, and bathing. Thank for this referral. edited: 01/29/2020 0718 da HARRIS
--- NOTE | 2020-01-28 18:20 | IPN ---
DATE: 01/28/2020 Mrs. Ocampo is seen this morning on her bedside. She is dressed up, ready to go home today. She was dialyzed yesterday, and she tolerated her dialysis treatment well. She has been ambulating with the help of a walker. She denies any dyspnea or chest pain at present. Her appetite has improved, and she is eating well. PHYSICAL EXAMINATION: Temperature 97.4 degrees Fahrenheit, heart rate 72 per minute, respiratory rate 18 per minute, blood pressure 134/80 mm of mercury, and oxygen saturation 96% on room air. Head is atraumatic. Neck supple and without jugular venous distention (JVD) or thyroid enlargement. Perm-A-Cath on right upper chest is without any sign of infection. Heart sounds are regular, and lungs sound clear to auscultation. Abdomen soft and nontender. Bowel sounds are normal. Extremities without any cyanosis or clubbing. Neurologically, she is awake, alert, and at her baseline mentation. Today's chemistry showed sodium 134, potassium 4.6, CO2 of 28, BUN 32, and creatinine 2.54. Glucose 131 and calcium 8.2. PROBLEMS: 1. End-stage renal disease. The patient is now dialysis dependent. She was dialyzed yesterday, and next dialysis will be scheduled for January 28 as an outpatient. 2. Congestive heart failure and hypervolemia. Her volume status is now very well compensated. Her diuretic has been stopped, and her volume will now be managed with dialysis. 3. Anemia. Her anemia is gradually improving, as she is receiving intravenous Venofer and weekly dose of Aranesp. 4. Hyperkalemia. She had mild hyperkalemia prior to dialysis yesterday, which has already improved and corrected. She will continue with 2 grams potassium diet restriction. 5. Disposition: The patient is going to be discharged to home today, as she has met her goals for acute rehabilitation. She will be followed up in outpatient. 6. Hypertension. Blood pressure is very well controlled on current antihypertensives, and she will continue with the same. 7. Microscopic polyangiitis. She has been on steroids since admission, and dose is being tapered down now. Her prednisone dose is down to 10 mg twice a day, and we will gradually taper it down. She is tolerating it well, and she will continue with current dose for next week.
== END 2020-01-28 12:10 | disposition home health service (06) | DRG 91 ==
LOC: M PM&R 17:15
PROVIDERS: ADMIT Physical Medicine & Rehabilitation; ATTEND Physical Medicine & Rehabilitation
PROC: 5A1D70Z Performance of Urinary Filtration, Intermittent, Less than 6 Hours Per Day (ICD-10-PCS; principal; 2020-01-18)
DX: R26.89 Other abnormalities of gait and mobility (principal); N18.6 End stage renal disease; J18.9 Pneumonia, unspecified organism; M31.7 Microscopic polyangiitis; I13.2 Hypertensive heart and chronic kidney disease with heart failure and with stage 5 chronic kidney disease, or end stage renal disease; N25.81 Secondary hyperparathyroidism of renal origin; E46 Unspecified protein-calorie malnutrition; G93.40 Encephalopathy, unspecified; E87.1 Hypo-osmolality and hyponatremia; L89.152 Pressure ulcer of sacral region, stage 2; I48.0 Paroxysmal atrial fibrillation; R50.9 Fever, unspecified; E21.3 Hyperparathyroidism, unspecified; E87.5 Hyperkalemia; I50.9 Heart failure, unspecified; M62.84 Sarcopenia; D63.1 Anemia in chronic kidney disease; Z99.2 Dependence on renal dialysis; K59.00 Constipation, unspecified; Z79.52 Long term (current) use of systemic steroids; Z79.899 Other long term (current) drug therapy; Z88.0 Allergy status to penicillin; Z88.1 Allergy status to other antibiotic agents; Z88.8 Allergy status to other drugs, medicaments and biological substances

== ENCOUNTER 2020-02-28 20:08 | Inpatient (IN) | payer MEDICARE, MEDICAID ==
[~2020-02-28] VITALS: Ht 167.6 cm; Wt 46.7 kg
[~2020-02-28 20:08] MED LIST changes: +PRED10TA2 PO; +TRIPCAP PO
[2020-02-28] MEDS ORDERED: ACETAMINOPHEN TAB 650MG DOSE (2X325MG) PO ONE (20:45)
[2020-02-28 21:10] LABS: BASO # 0.1 10^3/uL (0.0-0.2); BASO % 0.3 % (0.0-1.0); EOS # 0.1 10^3/uL (0.0-0.5); EOS % 0.8 % (0.0-3.0); HEMATOCRIT 32.2 % (36.0-47.0); HEMOGLOBIN 10.1 g/dl (12.0-15.5); LYMPH # 0.4 10^3/uL (1.5-5.0); LYMPH % 2.9 % (24.0-44.0); MEAN CORPUSCULAR HEMOGLOBIN 30.2 pg (27.0-33.0); MEAN CORPUSCULAR HGB CONC 31.4 g/dl (32.0-36.5); MEAN CORPUSCULAR VOLUME 96.4 fl (80.0-96.0); MONO # 0.5 10^3/uL (0.0-0.8); MONO % 3.5 % (0.0-5.0); NEUTROPHILS # 14.1 10^3/uL (1.5-8.5); NEUTROPHILS % 91.8 % (36.0-66.0); PLATELET COUNT, AUTOMATED 240 10^3/uL (150-450); RED BLOOD COUNT 3.34 10^6/uL (4.00-5.40); WHITE BLOOD COUNT 15.3 10^3/uL (4.0-10.0)
[2020-02-28] MEDS ORDERED: METO1TAB33 PO (21:47)
[2020-02-28] MEDS ORDERED: CALC1CAP31 PO (21:47)
[2020-02-28] MEDS ORDERED: NITR4TASL SL (21:47)
[2020-02-28] MEDS ORDERED: VITATAB73 PO (21:47)
[2020-02-28] MEDS ORDERED: PANT40TA3 PO (21:47)
[2020-02-28] MEDS ORDERED: ACET-683 PO (21:50)
[2020-02-28] MEDS ORDERED: RENATAB5 PO (21:50)
[2020-02-28] MEDS ORDERED: AMLO5TAB6 PO (21:50)
[2020-02-28] MEDS ORDERED: FURO20TA2 PO (21:50)
[2020-02-28] MEDS ORDERED: LOSA50TA88 PO (21:50)
[2020-02-28] MEDS ORDERED: FERR32TA PO (21:50)
[2020-02-28 22:01] LABS: ALBUMIN 2.9 GM/DL (3.2-5.2); ALT/SGPT 34 U/L (12-78); BILIRUBIN,DIRECT 0.2 MG/DL (0.0-0.2); BILIRUBIN,TOTAL 0.6 MG/DL (0.2-1.0); BLOOD UREA NITROGEN 20 MG/DL (7-18); C REACTIVE PROTEIN QUANTITATIV 2.71 MG/DL (0.00-0.30); CALCIUM LEVEL 8.5 MG/DL (8.8-10.2); CARBON DIOXIDE LEVEL 29 MEQ/L (21-32); CHLORIDE LEVEL 103 MEQ/L (98-107); CK-MB VALUE MASS 2.1 NG/ML (<3.6); CPK CREATINE PHOSPHOKINASE 56 U/L (26-192); CREATININE FOR GFR 2.15 MG/DL (0.55-1.30); GLOMERULAR FILTRATION RATE 23.6 (>39); GLUCOSE, FASTING 98 MG/DL (70-100); MB/CK RELATIVE INDEX 3.75 (< OR =4); POTASSIUM SERUM 3.4 MEQ/L (3.5-5.1); SODIUM LEVEL 140 MEQ/L (136-145); TOTAL PROTEIN 5.6 GM/DL (6.4-8.2); TROPONIN I 0.08 NG/ML (< 0.10)
[2020-02-28 22:02] LABS: NT-PRO BNP > 175000 PG/ML (<450)
--- NOTE | 2020-02-28 23:27 | IPNPDOC ---
Text Note Date of Service The patient was seen on 02/28/20. NOTE Time of service 11:35 PM Ms. Ocampo is a 79-year-old with a history of ESRD, granulomatosis with polyangiitis, chronic systolic/diastolic CHF, moderate pulmonary HTN, anemia of chronic disease, HTN, parox A fib who was sent from dialysis where she was noted to have an O2 sat in the 80s based on the initial work up she will be admitted for management of sepsis secondary to pneumonia. Vital Signs Date Time Temp Pulse Resp B/P (MAP) Pulse Ox O2 Delivery O2 Flow Rate FiO2 02/28/20 20:10 103.5 90 18 180/80 92 Room Air 02/28/20 21:11 2.0 Her physical exam is remarkable for cachexia / use of accessory muscles / NC is in place Laboratory Tests 02/28/20 20:14 1Sepsis 2/2 Pneumonia SIRS criterial include fever and elevated WBC # There appears to be a lesion on the left side side Plan: admit to PCU/telemetry / continuous pulse ox & supplemental O2/ target MAP 65 to 70 / f/u Is and Os with target UOP of at least 0.5 ml/kg/H / target serum glucose 140-180 while acutely ill / f/u VBG, strep pneumo, legionella sputum & blood cx / c/w Rocephin / no IVF bc of ESRD / Acetaminophen PRN for fever 2. ESRD / Granulomatosis with polyangiitis - the day time team can consult Nephro if she is not discharged before Monday, calcitriol 3. Chronic Systolic/Diastolic CHF - furosemide, losartan, metoprolol 4. Macrocytic Anemia - trend Hg / ferrous gluconate & vitamin b complex 5. Chronic HTN - amlodipione, furosemide, losartan, metoprolol 6. Parox A fib - not on AC 7. 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
[2020-02-28] MEDS ORDERED: cefTRIAXone SOD 1 GM in D5W MINI-BAG PLUS 50 ML IV ONE (23:30)
--- NOTE | 2020-02-28 23:46 | HPEPDOC ---
[facility] Medical History & Physical Date of Admission February 28, 2020 Date of Service: February 28, 2020 Primary Care Physician: Lizandro Colbert MD Attending Physician: BEV LUO MD History and Physical CHIEF COMPLAINT: Significant chills and shakes with desaturations during dialysis HISTORY OF PRESENT ILLNESS: Bettye is a 79-year-old female with PMHx of ESRD on hemodialysis via cvc (MWF), granulomatosis with polyangiitis, anemia of chronic disease, hypertension, paroxysmal atrial fibrillation not on AC, and vitamin D deficiency, who presented to the ED via EMS from her dialysis center with significant chills and shakes, and observed O2 desaturations into the 80s while undergoing hemo dialysis. Of note, she has no known oxygen dependent history. Around 7:15 PM this evening, she was roughly two hours into her scheduled Monday hemodialysis session when she began to experience significant chills and shakes. She signaled for office staff to help, who then observed her have oxygen de saturations into the 80s. EMS was called and subsequently took her directly from the dialysis center to the ED. she denied any recent travel or exposure to sick contacts. She did report some recent medication changes, but had not initiated them. In the ED, she was placed on supplemental oxygen and her saturations improved to the 90s. She was febrile (103.5) with an elevated WBC (15.2). Her chest x-ray did not appear to reveal any acute infiltrate. She had borderline macrocytic anemia (Hgb 10.1, MCV 96.4), with mild hypokalemia (3.4) and a significantly elevated BNP (> 175K). UA showed 3+ protein, 2+ blood, and an urine RBC 23. Respiratory viral panel was negative. COVID-19 test was negative/virus not detected. She was started on ceftriaxone for presumed pneumonia due to her hypoxia and got acetaminophen for her fever. Two blood cultures were drawn and pending. She was subsequently admitted under the care of the hospitalist team to PCU with telemetry. The nephrology service was also made aware of her admission and will be consulted. Of note, she was admitted a month and half ago (01/08/20) for symptomatic anemia and, per the recommendation of nephrology, for worsening kidney function and decreased mobility. Upon her stay, imaging showed infiltrates consistent with pneumonia with possibility of pulmonary edema. She received vancomycin, Levaquin, and IV steroids. She began hemodialysis via permacath on 01/11/20 that was complicated by atrial fibrillation with RVR that necessitated IV beta- blockade.. She subsequently then developed encephalopathy with delirium episodes. She was transferred over to a RU with impaired mobility. She was then discharged to a RU, where she underwent a comprehensive PT and OT program with the rehabilitation. Her mentation also improved and she was discharged on 01/28/20 and was to follow up with wound care for a sacral ulcer. Her PCP is Dr. Lizandro Colbert. She is a full code. PAST MEDICAL HISTORY: ESRD on HD via cvc (MWF); treatments began within the past two months Granulomatosis with polyangiitis HTN Paroxysmal atrial fibrillation not on AC Anemia of chronic disease Vitamin D deficiency PAST SURGICAL HISTORY: Patient denies undergoing any previous surgeries. There is also no documented surgical history from prior medical records. SOCIAL HISTORY: . Lives alone. Has two grown sons (one lives in [place], [place], the other in [facility] Retired. Holds Associates degree from [employer]. Denies current or former tobacco use. No current EtOH use with former use only socially. Denies current or former illicit drug use. FAMILY HISTORY: No contributory family medical history of note. ALLERGIES: Please see below. REVIEW OF SYSTEMS: CONSTITUTIONAL: Endorses subjective weight loss since initiating hemodialysis 2 weeks ago; endorses significant chills and shake. Denies feeling feverish, night sweats. HEENT: Denies vision changes, hearing changes, dysphagia, odynophagia CARDIOVASCULAR: Has chest pain, chest pressure, or palpitations RESPIRATORY: Endorses cough and associated gagging. Denies feeling short of breath while on nasal cannula, pleuritic chest pain GASTROINTESTINAL: Denies any current abdominal pain, nausea or vomiting. Did endorse mild nausea and abdominal pain during dialysis. GENITOURINARY: Denies dysuria or hematuria MUSCULOSKELETAL: Chronic bilateral upper extremity weakness ever since taking mycophenolate for her vasculitis condition. NEUROLOGICAL: Denies headache, change in focus or concentration ENDOCRINE: Endorses significant chills/cold intolerance during dialysis HOME MEDICATIONS: Please see below. PHYSICAL EXAMINATION: VITAL SIGNS: Temperature 103.5 with repeat 100.5, pulse 84, respiratory rate 18, blood pressure 178/76, pulse oximetry 99 % on 2L NC. GENERAL APPEARANCE: Pale and thin appearing elderly female. NAD. Alert and oriented 3. HEENT: Normocephalic, atraumatic. Conjunctival pallor. Noninjected sclera with mild icterus. PERRLA. Upper and lower dentures in place.. No pharyngeal erythema or exudate. CARDIOVASCULAR: 2/6 systolic murmur heard best over right parasternal second intercostal space. +S1,S2. No significantly elevated JVP. 2+ radial and dorsalis pedis pulses b/l LUNGS: Clear to auscultation bilaterally with no appreciated crackles, wheezes or rhonchi. shallow, even breaths. Symmetric chest expansion. Speaking full sentences. Breathing 2 L NC. ABDOMEN: Thin, nondistended and nontender with no guarding or rigidity. Normoactive bowel sounds in all 4 quadrants. Wearing adult diaper. MUSCULOSKELETAL: 4/5 UE muscle strength, 5/5 LE muscle strength EXTREMITIES: Lower extremities free of edema. Distal left lower extremity erythema with mild swelling of the left foot and two ulcers on the instep of the left foot. Left foot is deviated medially. NEUROLOGICAL: Awake, alert and oriented x3. CN 3-12 grossly intact. Mildly slowed by appropriate [id number] testing. Nondysarthric speech. PSYCHIATRIC: Mood and affect appear appropriate. LABORATORY DATA: Please see below. IMAGING: Portable CXR, 02/28/20: Official radiology impression not in. Cursory review shows increased interstitial markings in b/l bases with possible b/l mild pleural effusions. MICROBIOLOGY: Please see below. ASSESSMENT & PLAN: This is a 79yo female with h/o ESRD on HD, granulomatosis with polyangiitis, HTN, ACD, paroxysmal afib not on AC, who presented to ED directly from dialysis with oxygen desaturations in to the 80s with associated chills. She was admitted for acute hypoxic respiratory failure with presumed CAP. #Acute hypoxic respiratory failure 2/2 sepsis vs possible CAP -admitted in December 2019 with b/l PNA -O2 sats improved into 90s w/ supplemental O2 -Positive SIRS: WBC 15.3 with fever (103.5) -Lactic acid not significantly elevated (1.3) -Two BCx and sputum Cx pending -Empiric ABx ordered: Ceftriaxone and Doxycycline (known allergy to clarithromycin) -Received one dose of ceftriaxone in ED -Post-ED acetaminophen, temp decreased to 100.5 from 103.5 -could consider trial ween off O2 as last known sats on 2L was 99% #ESRD on HD via cvc (MWF) -Nephrology to be consulted and we appreciate their input -Cr 2.15, BUN 20, GFR 23.6% -BNP > 175,000; Hgb 10.1 #Chronic anemia -documented as anemia of chronic disease on prior records -Hgb 10.1, MCV 96.4 -Fe panel ordered -home PO ferrous gluconate held -received aranesp and venofer during December 2019 admission -f/u CBC #Granulomatosis with polyangiitis -previously took PO prednisone -had adverse msk side effects to mycophenolate a few years ago #Hypertension -c/w home amlodipine and losartan -2g Na diet ordered #Vitamin D deficiency -c/w home calcitriol #Paroxysmal atrial fibrillation not on anticoagulation -had period of afib w/ rvr on 12/2019 admission that required IV beta-blockade -on tele #Impaired mobility/deconditioning -During hospital stay last month, underwent compresses of rehabilitation at [facility] -ST consult placed to assess current auditory status and optimization -Consider living situation and functional ability re potential placement upon discharge #DVT prophylaxis: Heparin sc Disposition: Admit to PCU on tele. Anticipate greater than two midnight stay. Vital Signs Vital Signs Date Time Temp Pulse Resp B/P (MAP) Pulse Ox O2 Delivery O2 Flow Rate FiO2 02/28/20 22:49 84 178/76 (110) 02/28/20 22:39 100.5 02/28/20 21:11 Nasal Cannula 2.0 02/28/20 20:10 18 92 Laboratory Data Labs 24H Laboratory Tests 2 02/28/20 20:14: Immature Granulocyte % (Auto) 0.7, Neutrophils (%) (Auto) 91.8H, Lymphocytes (%) (Auto) 2.9L, Monocytes (%) (Auto) 3.5, Eosinophils (%) (Auto) 0.8, Basophils (%) (Auto) 0.3, Neutrophils # (Auto) 14.1H, Lymphocytes # (Auto) 0.4L, Monocytes # (Auto) 0.5, Eosinophils # (Auto) 0.1, Basophils # (Auto) 0.1, Nucleated Red Blood Cells % (auto) 0.0, Anion Gap 8, Glomerular Filtration Rate 23.6L, Lactic Acid Level 1.3, Calcium Level 8.5L, Total Bilirubin 0.6, Direct Bilirubin 0.2, Aspartate Amino Transf (AST/SGOT) 26, Alanine Aminotransferase (ALT/SGPT) 34, Alkaline Phosphatase 61, Total Creatine Kinase 56, Creatine Kinase MB 2.1, Creatine Kinase MB Relative Index 3.75, Troponin I 0.08, C-Reactive Protein, Jose ntitative 2.71H, RN-Irb-Q-Type Natriuretic Peptide > [id number], Total Protein 5.6L, Albumin 2.9L, Albumin/Globulin Ratio 1.07, Coronavirus (COVID-19)(PCR) NEGATIVE 02/28/20 22:32: Urine Color KOURTNEY, Urine Appearance TURBIDH, Urine pH 6.0, Urine Specific Crescent 1.015, Urine Protein 3+H, Urine Glucose (UA) NEGATIVE, Urine Ketones NEGATIVE, Urine Blood 2+H, Urine Nitrite NEGATIVE, Urine Bilirubin NEGATIVE, Urine Urobilinogen 0.2, Urine Leukocyte Esterase NEGATIVE, Urine WBC (Auto) 8H, Urine RBC (Auto) 23H, Urine Hyaline Casts (Auto) 4, Urine Bacteria (Auto) 1+H, Urine Squamous Epithelial Cells 1, Urine Amorphous Sediment SMALLH, Urine Mucus (Auto) SMALL, Urine Sperm (Auto) CBC/BMP Laboratory Tests 02/28/20 20:14 Microbiology Microbiology 02/28/20 Respiratory Virus Panel (PCR) (WILBERTO) - Final, Complete 02/28/20 Blood Culture, Received Pending 02/28/20 Blood Culture, Received Pending Home Medications Scheduled Amlodipine Besylate (Amlodipine Besylate) 5 Mg Tablet, 5 MG PO DAILY Calcitriol (Calcitriol) 0.25 Mcg Capsule, 0.25 MCG PO DAILY Ferrous Gluconate (Ferrous Gluconate) 324 Mg Tablet, 324 MG PO DAILY Folic Acid/Vit B Complex and C (Candice-Leslie Tablet) 0.8 Mg Tablet, 0.8 MG PO DAILY Furosemide (Furosemide) 20 Mg Tablet, 20 MG PO DAILY Losartan Potassium (Losartan Potassium) 50 Mg Tablet, 50 MG PO DAILY Metoprolol Succinate (Metoprolol Succinate) 100 Mg Tab.er.24h, 100 MG PO DAILY Pantoprazole Sodium (Pantoprazole Sodium) 40 Mg Tablet.dr, 40 MG PO DAILY Vitamin B Complex (Vitamin B Complex) 1 Each Tablet, 1 TAB PO DAILY Scheduled PRN Acetaminophen (Acetaminophen) 500 Mg Tablet, 500 MG PO BID PRN for PAIN Nitroglycerin (Nitrostat) 0.4 Mg Tab.subl, 0.4 MG SL NITRO PRN for CHEST PAIN Allergies Coded Allergies: clarithromycin (Verified Allergy, Intermediate, rash, 01/08/20) isotretinoin (Verified Allergy, Mild, 02/28/20) Penicillins (Verified Allergy, Unknown, 01/08/20) cortisone (Verified Allergy, Unknown, 01/08/20) lisinopril (Verified Allergy, Unknown, 01/08/20) A-FIB/CHADSVASC A-FIB History Current/History of A-Fib/PAF?: Yes Current PO Anticoag Therapy: No GME ATTESTATION GME ATTESTATION My faculty preceptor for this patient encounter was physically present during the encounter and was fully available. All aspects of the patient interview, examination, medical decision making process, and medical care plan development were reviewed and approved by the faculty preceptor. The faculty preceptor is aware and concurs with the plan as stated in the body of this note and will attest to such by his/her cosignature. ATTENDING NOTE Agree with the H&P as documented pls see my addendum dated 02/28/20 for additional details HEDY HERMOSILLO D.O. February 28, 2020 23:46 BEV LUO MD March 02, 2020 06:01
[2020-02-29] VITALS (12 sets, daily range): BP systolic 138–170; BP diastolic 74–90; O2SAT 95–100
[2020-02-29 00:12] LABS: VENOUS BASE EXCESS 3.6 (-2.0-2.0); VENOUS HCO3 27.9 MEQ/L (23.0-27.0); VENOUS O2 SATURATION 95.5 % (60.0-80.0); VENOUS PARTIAL PRESSURE CO2 41.1 mmHg (38.0-50.0); VENOUS PARTIAL PRESSURE O2 85.5 mmHg (30.0-50.0); VENOUS PH 7.449 UNITS (7.330-7.430); VENOUS STANDARD HCO3 27.6 MEQ/L; VENOUS TOTAL CO2 29.1 MEQ/L (24.0-28.0)
[2020-02-29] MEDS ORDERED: POTASSIUM CHLORIDE 10 MEQ SR TABLET PO ONE (01:15)
[2020-02-29 01:28] LABS: MAGNESIUM LEVEL 1.7 MG/DL (1.8-2.4)
[2020-02-29] MEDS ORDERED: NS 1,000 ML IV SCH (01:45)
[2020-02-29] MEDS: DOXYCYCLINE HYCLATE 100 MG in D5W MINI-BAG PLUS 100 ML IV SCH ×2 (02:34→15:34)
[2020-02-29] MEDS ORDERED: FUROSEMIDE 20 MG TAB PO SCH (09:00)
[2020-02-29 09:18] LABS: BASO # 0.1 10^3/uL (0.0-0.2); BASO % 0.5 % (0.0-1.0); EOS # 0.2 10^3/uL (0.0-0.5); EOS % 2.1 % (0.0-3.0); HEMATOCRIT 27.4 % (36.0-47.0); HEMOGLOBIN 8.6 g/dl (12.0-15.5); LYMPH # 0.9 10^3/uL (1.5-5.0); LYMPH % 8.8 % (24.0-44.0); MEAN CORPUSCULAR HEMOGLOBIN 30.4 pg (27.0-33.0); MEAN CORPUSCULAR HGB CONC 31.4 g/dl (32.0-36.5); MEAN CORPUSCULAR VOLUME 96.8 fl (80.0-96.0); MONO # 0.6 10^3/uL (0.0-0.8); MONO % 6.1 % (0.0-5.0); NEUTROPHILS # 8.3 10^3/uL (1.5-8.5); NEUTROPHILS % 81.6 % (36.0-66.0); PLATELET COUNT, AUTOMATED 194 10^3/uL (150-450); RED BLOOD COUNT 2.83 10^6/uL (4.00-5.40); WHITE BLOOD COUNT 10.2 10^3/uL (4.0-10.0)
[2020-02-29] MEDS: HEPARIN SOD (PORCINE) 5000UNITS/ML VIAL (J1644 PER 1000UNITS) SC SCH ×2 (09:29→20:34)
[2020-02-29] MEDS: LOSARTAN 50MG TABLET PO SCH (09:29)
[2020-02-29] MEDS: amLODIPine 5 MG TAB PO SCH (09:30)
[2020-02-29] MEDS: CALCITRIOL 0.25 MCG CAP (S0169) PO SCH (09:30)
[2020-02-29] MEDS: PANTOPRAZOLE 40MG TAB (PROTONIX) PO SCH (09:30)
[2020-02-29] MEDS: METOPROLOL SUCC (TopROL XL) 100MG *XL* TAB PO SCH (09:31)
[2020-02-29 09:35] LABS: CALCIUM LEVEL 7.7 MG/DL (8.8-10.2); CREATININE FOR GFR 2.88 MG/DL (0.55-1.30); GLOMERULAR FILTRATION RATE 16.8 (>39)
[2020-02-29] MEDS ORDERED: DARBEPOETIN 100 MCG/0.5 ML *DIALYSIS* SYRINGE (J0882) IV SCH (10:30)
--- NOTE | 2020-02-29 10:52 | REP ---
REASON: Hypoxia and pyrexia. COMPARISON: Multiple, the latest 01/18/2020. The technique utilized in obtaining the radiograph has magnified the cardiac silhouette and accentuated the interstitial markings. There is cardiomegaly accentuated by technique, status quo. The double-lumen central venous catheter tip remains in the superior vena cava. There is chronic bilateral CP angle blunting. The interstitial markings are again diffusely increased, status quo. No new abnormal patchy opacities have developed. IMPRESSION: Likely small bilateral pleural effusions with subsegmental atelectatic change. Basilar pneumonia cannot be ruled out. There is cardiomegaly, status quo. There is evidence of interstitial fibrotic change, status quo. Electronically Signed by Antoine Jacobsen DO 02/29/2020 10:58 A
[2020-02-29] MEDS: predniSONE 10 MG TAB PO SCH (12:47)
--- NOTE | 2020-02-29 13:09 | IPNPDOC ---
Text Note Date of Service The patient was seen on 02/29/20. NOTE Subjective: No complaints this morning. Had high grade fever last night t max of 103. PHYSICAL EXAM: VITALS: As below GENERAL: Pale and thin appearing elderly female. NAD. Alert and oriented 3. HEENT: Normocephalic, atraumatic. Conjunctival pallor. PERRLA. Upper and lower dentures in place.. No pharyngeal erythema or exudate. There is bitemporal wasting. CARDIOVASCULAR: 2/6 systolic murmur heard best over right parasternal second intercostal space. +S1,S2. No significantly elevated JVP. 2+ radial and dorsalis pedis pulses b/l LUNGS: Clear to auscultation bilaterally with no appreciated crackles, wheezes or rhonchi. shallow, even breaths. Symmetric chest expansion. Speaking full sentences. Breathing 2 L NC. ABDOMEN: Thin, nondistended and nontender with no guarding or rigidity. Normoactive bowel sounds in all 4 quadrants. MUSCULOSKELETAL: 4/5 UE muscle strength, 5/5 LE muscle strength EXTREMITIES: Lower extremities free of edema. Distal left lower extremity e rythema with mild swelling of the left foot and two ulcers on the instep of the left foot. Left foot is deviated medially. NEUROLOGICAL: Awake, alert and oriented x3. CN 3-12 grossly intact. Mildly sl owed by appropriate [id number] testing. Nondysarthric speech. PSYCHIATRIC: Mood and affect appear appropriate. Labs and radiology : reviewed. ASSESSMENT & PLAN: This is a 79yo female with h/o ESRD on HD, granulomatosis with polyangiitis, HTN, ACD, paroxysmal afib not on AC, who presented to ED directly from dialysis with oxygen desaturations in to the 80s with associated chills. She was admitted for acute hypoxic respiratory failure with presumed CAP. Pneumonia with sepsis continue ceftriaxone and doxycycline Acute hypoxic respiratory failure 2/2 CAP with sepsis admitted in December 2019 with b/l PNA Two BCx and sputum Cx pending Ceftriaxone and Doxycycline (known allergy to clarithromycin) ESRD on HD via cvc (MWF) Due to Microscopic polyangitis. new HD on hd for 3 weeks Nephro on board. Chronic anemia worse today. May due to IVF anemia of chronic disease on prior records No iron deficiency receives aranesp Microscopic polyangiitis Received pulse steroids 3 weeks ago and is on prednisone taper. continue prednisone 10 mg daily. patient noncompliant with meds. Severe protein calorie malnutrition BMI of 15.3, low albumin , bitemporal wasting and wasting of intercostal m uscles. Hypertension c/w home amlodipine and losartan 2g Na diet ordered #Vitamin D deficiency c/w home calcitriol #Paroxysmal atrial fibrillation not on anticoagulation -had period of afib w/ rvr on 12/2019 admission that required IV beta-blockade -now in sinus rhythm #Impaired mobility/deconditioning -During hospital stay last month, underwent rehabilitation at [facility] #DVT prophylaxis: Heparin sc VS,Fishbone, I+O VS, Fishbone, I+O Laboratory Tests 02/28/20 20:14 02/29/20 08:52 Vital Signs Date Time Temp Pulse Resp B/P (MAP) Pulse Ox O2 Delivery O2 Flow Rate FiO2 02/29/20 12:25 99.6 84 20 170/90 (116) 97 Nasal Cannula 2.0 I&O- Last 24 Hours up to 6 AM 02/29/20 06:00 Intake Total 150 ml Output Total 0 ml Balance 150 ml SHERI STEARNS MD February 29, 2020 13:09
--- NOTE | 2020-02-29 13:17 | CR ---
DATE OF CONSULTATION: 02/29/2020 REQUESTING PHYSICIAN: Dr. Loretta Penaloza CONSULTING PHYSICIAN: Dr. Hayden REASON FOR CONSULTATION: Management of end-stage renal disease and microscopic polyangiitis. CHIEF COMPLAINT: The patient was sent from dialysis center yesterday because of fevers, chills, and rigors during dialysis. HISTORY OF PRESENT ILLNESS: Bettye Ocampo is a 79-year-old female with past medical history of end-stage renal disease, on hemodialysis every Monday, Monday, Monday. Cause of her renal failure is microscopic polyangiitis with renal and pulmonary involvement. She was recently admitted to the hospital with pneumonia and microscopic polyangiitis involving the lungs. She was given intravenous (IV) antibiotics and pulse steroids and switched to oral prednisone. She was following up with nephrology, and she was recently seen in the clinic. She is noncompliant with medications, because she lives alone and she does not understand her medications, and she does not want to take the medications. Her blood pressure was uncontrolled as outpatient. Her prednisone was supposed to be tapered down to 10 mg; however, apparently she has not taken her prednisone at home. She was being dialyzed yesterday, and she started having fevers, chills, and rigors during dialysis. She only got 2 hours of dialysis, and she was sent from dialysis center to emergency room for further evaluation. She was found to have a maximal temperature of more than 103 degrees Fahrenheit and questionable infiltrates on the x-rays. She also had leukocytosis. She was started on empiric IV antibiotics for healthcare-associated pneumonia. She was admitted under the hospitalist service, and nephrology service consult was called for further help in the management of this patient. I saw and evaluated the patient today morning at the bedside. She feels that she is starting to feel better today as compared with yesterday. PAST MEDICAL HISTORY: 1. End-stage renal disease requiring hemodialysis every Monday, Monday, Monday. 2. History of her microscopic polyangiitis with a lung involvement. 3. Hypertension secondary to end-stage renal disease. 4. History of paroxysmal atrial fibrillation, not on anticoagulation. 5. Anemia and chronic kidney disease. 6. Secondary hyperparathyroidism. PAST SURGICAL HISTORY 1. Status post tunneled dialysis catheter placement. 2. History of renal biopsy in the past. ALLERGIES: Allergic to PENICILLINS, CLARITHROMYCIN, CORTISONE, ISOTRETINOIN, and LISINOPRIL. FAMILY HISTORY: No significant family history of end-stage renal disease requiring hemodialysis. SOCIAL HISTORY: The patient lives alone. Her sons live in [place] and [facility], and patient is not very compliant to the medications. REVIEW OF SYSTEMS: CONSTITUTIONAL: She had fevers, chills, and rigors yesterday. She denies any fevers today. EYES: She denies any blurry vision or double vision. ENT: She denies any dysphagia or odynophagia. CARDIOVASCULAR: She denies any chest pain or palpitations. RESPIRATORY: She did have cough when she came to the hospital. GASTROINTESTINAL: She denies any nausea or vomiting. GENITOURINARY: She reports decreased urine output. MUSCULOSKELETAL: She denies any muscle aches and pains. HEMATOLOGIC/ONCOLOGIC: She denies any easy bleeding or bruising. Central nervous system: She denies any seizures or weakness. ENDOCRINE: She reports history of secondary hyperparathyroidism. All other review of systems is negative. PHYSICAL EXAMINATION: GENERAL: The patient is awake, alert, oriented times two, lying in bed. VITAL SIGNS: Temperature is 99.6 degrees Fahrenheit, maximal temperature is 103.5 degrees Fahrenheit last night, blood pressure is 170/90, pulse is 84, respiratory rate of 20, saturating 97% on nasal cannula at 2 liters. HEAD AND NECK: Extraocular muscles intact. Pupils equally round and reactive to light. Mucous membranes are moist. Neck is supple. She has a right internal jugular (IJ) tunneled hemodialysis catheter. CARDIOVASCULAR: S1, S2, regular rate. Edema 1+ of the ankles. RESPIRATORY: Mildly decreased breath sounds at the bases. No active rales or rhonchi. ABDOMEN: Soft. Positive bowel sounds. Nontender. No organomegaly. MUSCULOSKELETAL: No clubbing or cyanosis. Pulses are 2+. CENTRAL NERVOUS SYSTEM: No focal deficit. Power is 5/5 in all extremities. LABORATORY REVIEW: CBC showed WBC of 15.3 on arrival, 10.2 today, hemoglobin is 8.6, platelets of 194. Urinalysis showed it was turbid with 3+ protein and 2+ blood. BMP showed sodium 142, potassium 4, chloride 106, bicarbonate 30, BUN 27, creatinine is 2.8, calcium 7.7. Iron is 21, TIBC 131, transferrin saturation 16, ferritin is 1733. Microbiology: Respiratory viral panel is negative. Blood culture is pending. IMAGING STUDIES: A chest x-ray was done yesterday, which showed bilateral pleural effusions with subsegmental atelectasis. Bilateral pneumonia cannot be ruled out. CURRENT INPATIENT MEDICATIONS: The patient's medications were all reviewed by myself. She is currently on: - doxycycline 100 mg IV every 12 hours - ceftriaxone 1 gram IV every 24 - Tylenol as needed - amlodipine 5 mg daily - calcitriol 0.25 mcg by mouth daily - I have started her on Aranesp 100 mcg IV daily. - She is on Lasix 20 mg daily. I have increased the dose to 40 mg daily. - She is on heparin subcutaneous. - losartan 50 mg daily - metoprolol XL at 100 mg daily - Protonix 40 mg daily - I have restarted the prednisone 10 mg by mouth daily. ASSESSMENT: A 79-year-old female with history of end-stage renal disease, requiring hemodialysis secondary to microscopic polyangiitis with pulmonary involvement as well, history of hypertension, paroxysmal atrial fibrillation, noncompliant with medications, admitted at this time with sepsis secondary to community-acquired pneumonia. PLAN: 1. Sepsis secondary to community-acquired pneumonia. The patient is currently getting doxycycline and ceftriaxone. Fever and leukocytosis are getting better. The patient was recently treated for pneumonia a few weeks ago as well, and she has history of microscopic polyangiitis with pulmonary involvement. 2. Microscopic polyangiitis with primary involvement. The patient was given pulse steroids during previous hospitalization. She is supposed to be on prednisone 10 mg daily. She is noncompliant with her medication. She stopped taking the prednisone altogether. I have restarted prednisone 10 mg by mouth daily today. 3. End-stage renal disease, on hemodialysis. The patient is dialyzed Monday, Monday, Monday. She was only dialyzed yesterday for 2 hours. No urgent need of dialysis today. Next hemodialysis will be done on Monday. 4. Anemia secondary to end-stage renal disease. I have restarted the patient on Aranesp. She will also be given Venofer with dialysis because of low iron levels. 5. Hypertension. The patient is noncompliant with medications. She is supposed to be on amlodipine 5 mg, losartan 50 mg, and metoprolol XL 100 mg. Continue current dosage. If needed, blood pressure medications will be increased tomorrow morning. 6. Paroxysmal atrial fibrillation. Continue the beta song. She is currently not on anticoagulation. Thank you for involving me in the care of this patient. I shall be happy to follow the patient along with you tomorrow morning.
[2020-03-01] VITALS (10 sets, daily range): BP systolic 144–180; BP diastolic 82–98; O2SAT 92–99
[2020-03-01] MEDS: DOXYCYCLINE HYCLATE 100 MG in D5W MINI-BAG PLUS 100 ML IV SCH (03:37)
[2020-03-01] MEDS ORDERED: IRON SUCROSE 100MG 5ML VIAL (J1756 PER 1MG) IV SCH (05:00)
[2020-03-01 05:55] LABS: BASO % 0.4 % (0.0-1.0); EOS # 0.2 10^3/uL (0.0-0.5); HEMATOCRIT 27.5 % (36.0-47.0); HEMOGLOBIN 8.7 g/dl (12.0-15.5); LYMPH # 1.3 10^3/uL (1.5-5.0); LYMPH % 11.8 % (24.0-44.0); MEAN CORPUSCULAR HEMOGLOBIN 30.3 pg (27.0-33.0); MEAN CORPUSCULAR HGB CONC 31.6 g/dl (32.0-36.5); MEAN CORPUSCULAR VOLUME 95.8 fl (80.0-96.0); MONO # 0.8 10^3/uL (0.0-0.8); MONO % 7.2 % (0.0-5.0); NEUTROPHILS # 8.3 10^3/uL (1.5-8.5); NEUTROPHILS % 77.7 % (36.0-66.0); PLATELET COUNT, AUTOMATED 208 10^3/uL (150-450); RED BLOOD COUNT 2.87 10^6/uL (4.00-5.40); WHITE BLOOD COUNT 10.7 10^3/uL (4.0-10.0)
[2020-03-01 06:25] LABS: CALCIUM LEVEL 7.6 MG/DL (8.8-10.2); CREATININE FOR GFR 4.02 MG/DL (0.55-1.30); GLOMERULAR FILTRATION RATE 11.5 (>39); POTASSIUM SERUM 4.4 MEQ/L (3.5-5.1)
[2020-03-01] MEDS: HEPARIN SOD (PORCINE) 5000UNITS/ML VIAL (J1644 PER 1000UNITS) SC SCH ×2 (09:05→20:42)
[2020-03-01] MEDS: amLODIPine 5 MG TAB PO SCH (09:06)
[2020-03-01] MEDS: LOSARTAN 50MG TABLET PO SCH (09:06)
[2020-03-01] MEDS: predniSONE 10 MG TAB PO SCH (09:06)
[2020-03-01] MEDS: PANTOPRAZOLE 40MG TAB (PROTONIX) PO SCH (09:06)
[2020-03-01] MEDS: FUROSEMIDE 40 MG TAB PO SCH (09:07)
[2020-03-01] MEDS: CALCITRIOL 0.25 MCG CAP (S0169) PO SCH (09:07)
[2020-03-01] MEDS: METOPROLOL SUCC (TopROL XL) 100MG *XL* TAB PO SCH (09:07)
--- NOTE | 2020-03-01 11:12 | ECGEPIP ---
[facility] - ED Test Date: 2020-02-28 Pat Name: CARON CHOI Department: Room: [place] [address] Gender: Female Process Safety Specialist: janet : 1940 Requested By: SHIRAZ Wood Order Number: [id number] Reading MD: Sil Moreland Measurements Intervals [place] Rate: 92 P: 39 UT: 142 QRS: 14 QRSD: 81 T: 33 QT: 341 QTc: 422 Interpretive Statements SINUS RHYTHM WITH OCCASIONAL SUPRAVENTRICULAR PREMATURE COMPLEXES NONSPECIFIC ST & T-WAVE ABNORMALITY PRIOR 01/10/20 ATRIAL FIBRILLATION Electronically Signed on 03-01-2020 11:11:59 EDT by Sil Moreland
--- NOTE | 2020-03-01 11:17 | IPNPDOC ---
Text Note Date of Service The patient was seen on 03/01/20. NOTE Subjective: No complaints this morning. No further fever or chills. No chest pain or Sob. Sitting up at the edge of the bed and having breakfast. PHYSICAL EXAM: VITALS: As below GENERAL: Pale and thin appearing elderly female. NAD. Alert and oriented 3. HEENT: Normocephalic, atraumatic. Conjunctival pallor. PERRLA. Upper and lower dentures in place.. No pharyngeal erythema or exudate. There is bitemporal wasting. CARDIOVASCULAR: 2/6 systolic murmur heard best over right parasternal second intercostal space. +S1,S2. No significantly elevated JVP. 2+ radial and dorsalis pedis pulses b/l LUNGS: Clear to auscultation bilaterally with no appreciated crackles, wheezes o r rhonchi. shallow, even breaths. Symmetric chest expansion. Speaking full sentences. Breathing 2 L NC. ABDOMEN: Thin, nondistended and nontender with no guarding or rigidity. Normoactive bowel sounds in all 4 quadrants. MUSCULOSKELETAL: 4/5 UE muscle strength, 5/5 LE muscle strength EXTREMITIES: Lower extremities free of edema. Distal left lower extremity erythema with mild swelling of the left foot and two ulcers on the instep of the left foot. Left foot is deviated medially. NEUROLOGICAL: Awake, alert and oriented x3. CN 3-12 grossly intact. Mildly slowed by appropriate [id number] testing. Nondysarthric speech. PSYCHIATRIC: Mood and affect appear appropriate. Labs and radiology : reviewed. ASSESSMENT & PLAN: This is a 79yo female with h/o ESRD on HD, granulomatosis with polyangiitis, HTN, ACD, paroxysmal afib not on AC, who presented to ED directly from dialysis with oxygen desaturations in to the 80s with associated chills. She was admitted for acute hypoxic respiratory failure with presumed CAP. Pneumonia with sepsis continue ceftriaxone and doxycycline Acute hypoxic respiratory failure 2/2 CAP with sepsis admitted in December 2019 with b/l PNA Two BCx and sputum Cx pending Ceftriaxone and Doxycycline (known allergy to clarithromycin) ESRD on HD via cvc (MWF), secondary hyperparathyroidism. Due to Microscopic polyangitis. new HD. on hd for 3 weeks Nephro on board. Chronic anemia worse today. May due to IVF anemia of chronic disease on prior records No iron deficiency receives aranesp Microscopic polyangiitis with lung involvement. p-ANCA was elevated She was treated with steroids and mycophenolate but had stopped taking meds. Received pulse steroids 3 weeks ago and is on prednisone taper. continue prednisone 10 mg daily. patient noncompliant with meds. Severe protein calorie malnutrition BMI of 15.3, low albumin , bitemporal wasting and wasting of intercostal muscles. Hypertension c/w home amlodipine and losartan 2g Na diet ordered Mild nonmitral valvular heart disease with Moderate pulmonary hypertension. has Mils and Mild AR and Mild MR. EF low normal 50% to 55% Vitamin D deficiency c/w home calcitriol Paroxysmal atrial fibrillation not on anticoagulation now in sinus rhythm Impaired mobility/deconditioning -During hospital stay last month, underwent rehabilitation at [facility] Osteoporosis/OA/Vit D def continue home meds. #DVT prophylaxis: Heparin sc VS,Fishbone, I+O VS, Fishbone, I+O Laboratory Tests 03/01/20 05:41 Vital Signs Date Time Temp Pulse Resp B/P (MAP) Pulse Ox O2 Delivery O2 Flow Rate FiO2 03/01/20 09:06 88 180/98 03/01/20 08:00 99.0 18 96 Nasal Cannula 2.0 I&O- Last 24 Hours up to 6 AM 03/01/20 06:00 Intake Total 530 ml Output Total 400 ml Balance 130 ml SHERI STEARNS MD March 01, 2020 11:17
[2020-03-01] MEDS: DOXYCYCLINE HYCLATE 100MG TABLET PO SCH (20:42)
[2020-03-01] MEDS: cefTRIAXone SOD 1 GM in D5W MINI-BAG PLUS 50 ML IV SCH ×3 (23:05)
--- NOTE | 2020-03-02 00:47 | IPN ---
DATE: 03/01/2020 SUBJECTIVE: Patient was seen and examined at the bedside today morning. She is afebrile, hemodynamically stable. She denies any active complaints. She denies any shortness of breath. She was sitting up on the sofa and getting ready to eat her lunch when I saw her. OBJECTIVE: Vital signs: Temperature is 98.3 degrees Fahrenheit, blood pressure 156/98, pulse is 86, respiratory of 16, saturating 98% on room air. Intake and output: Urine output recorded is 600 mL since overnight. Weight on the bed scale is 46.7 kg. PHYSICAL EXAM: General: Patient is awake, alert, oriented times three, sitting up on the sofa, in no apparent distress. Head and neck exam: Extraocular muscles intact. Pupils equally round and reactive to light. Mucous membranes are moist. Neck is supple. There is no jugular venous distention (JVD). She has a right internal jugular (IJ) tunneled hemodialysis catheter. Cardiovascular: S1, S2, regular rate. 1+ edema of the bilateral lower extremities. Respiratory: Chest is clear to auscultation bilaterally. Bilateral equal air entry. No rales or rhonchi. Abdomen: Soft. Positive bowel sounds. Nontender. No organomegaly. Musculoskeletal: No clubbing or cyanosis. Pulses are 2+. Central nervous system (AUTOPSY ASSISTANT): No focal deficit. Power is 5/5 in all extremities. LAB REVIEW: CBC showed a WBC of 10.7, hemoglobin 8.7, platelets are 208. BMP showed sodium 139, potassium 4.4, chloride 105, bicarbonate 26, BUN 48, creatinine is 4. CURRENT INPATIENT MEDICATIONS: Patient's medications were all reviewed by me. I have started the patient on intravenous (IV) Venofer with dialysis. IV doxycycline has been stopped. She continues to be on ceftriaxone. Oral doxycycline was started 100 mg by mouth twice a day. ASSESSMENT AND PLAN: 1. End-stage renal disease. Patient is dialysis dependent. She was dialyzed over the weekend. Next hemodialysis session will be done on Monday, according to her regular schedule. 2. Sepsis secondary to community acquired pneumonia. Patient's leukocytosis is getting better. He is afebrile now. Continue ceftriaxone and doxycycline. 3. Microscopic polyangiitis with pulmonary and renal involvement. Patient was given pulse steroids during a recent hospitalization. She is currently on prednisone 10 mg daily. No further immunosuppression because of recurrent infections. 4. Anemia secondary to end-stage renal disease and iron deficiency. Patient is getting Aranesp and Venofer with dialysis. 5. Hypertension. Blood pressure is controlled with amlodipine, losartan, and metoprolol. Volume status is being optimized with dialysis.
[2020-03-02] MEDS: ACETAMINOPHEN TAB 650MG DOSE (2X325MG) PO PRN ×2 (04:18→16:34)
[2020-03-02 06:00] VITALS: BP_SYST 140; BP_SYST 180; BP_DIAS 66; BP_DIAS 98
[2020-03-02] MEDS: FUROSEMIDE 40 MG TAB PO SCH (06:00)
[2020-03-02] MEDS: amLODIPine 5 MG TAB PO SCH (06:00)
[2020-03-02] MEDS: PANTOPRAZOLE 40MG TAB (PROTONIX) PO SCH (06:00)
[2020-03-02] MEDS: LOSARTAN 50MG TABLET PO SCH (06:00)
[2020-03-02] MEDS: METOPROLOL SUCC (TopROL XL) 100MG *XL* TAB PO SCH (06:01)
[2020-03-02] MEDS: CALCITRIOL 0.25 MCG CAP (S0169) PO SCH (06:01)
[2020-03-02] MEDS: predniSONE 10 MG TAB PO SCH (06:01)
[2020-03-02] MEDS: HEPARIN SOD (PORCINE) 5000UNITS/ML VIAL (J1644 PER 1000UNITS) SC SCH ×2 (06:01→20:53)
[2020-03-02] MEDS: DOXYCYCLINE HYCLATE 100MG TABLET PO SCH ×2 (06:03→20:53)
[2020-03-02 06:08] LABS: BASO # 0.1 10^3/uL (0.0-0.2); BASO % 0.5 % (0.0-1.0); EOS # 0.3 10^3/uL (0.0-0.5); EOS % 2.4 % (0.0-3.0); HEMATOCRIT 28.6 % (36.0-47.0); HEMOGLOBIN 9.2 g/dl (12.0-15.5); LYMPH # 1.5 10^3/uL (1.5-5.0); LYMPH % 12.7 % (24.0-44.0); MEAN CORPUSCULAR HEMOGLOBIN 30.3 pg (27.0-33.0); MEAN CORPUSCULAR HGB CONC 32.2 g/dl (32.0-36.5); MEAN CORPUSCULAR VOLUME 94.1 fl (80.0-96.0); MONO # 0.9 10^3/uL (0.0-0.8); NEUTROPHILS # 8.7 10^3/uL (1.5-8.5); NEUTROPHILS % 73.8 % (36.0-66.0); PLATELET COUNT, AUTOMATED 280 10^3/uL (150-450); RED BLOOD COUNT 3.04 10^6/uL (4.00-5.40); WHITE BLOOD COUNT 11.7 10^3/uL (4.0-10.0)
[2020-03-02 06:30] LABS: CALCIUM LEVEL 8.2 MG/DL (8.8-10.2); CREATININE FOR GFR 4.43 MG/DL (0.55-1.30); GLOMERULAR FILTRATION RATE 10.2 (>39); POTASSIUM SERUM 5.5 MEQ/L (3.5-5.1)
[2020-03-02 14:00] VITALS: BP 129/92
--- NOTE | 2020-03-02 14:30 | IPNPDOC ---
Text Note Date of Service The patient was seen on 03/02/20. NOTE Subjective: No complaints this morning. Fever or chills. No chest pain or Sob. HD today as per schedule. PHYSICAL EXAM: VITALS: As below GENERAL: Pale and thin appearing elderly female. NAD. Alert and oriented 3. HEENT: Normocephalic, atraumatic. Conjunctival pallor. PERRLA. Upper and lower dentures in place.. No pharyngeal erythema or exudate. There is bitemporal wasting. CARDIOVASCULAR: 2/6 systolic murmur heard best over right parasternal second intercostal space. +S1,S2. No significantly elevated JVP. 2+ radial and dorsalis pedis pulses b/l LUNGS: Clear to auscultation bilaterally with no appreciated crackles, wheezes or rhonchi. shallow, even breaths. Symmetric chest expansion. Speaking full sentences. Breathing 2 L NC. ABDOMEN: Thin, nondistended and nontender with no guarding or rigidity. Normoactive bowel sounds in all 4 quadrants. MUSCULOSKELETAL: 4/5 UE muscle strength, 5/5 LE muscle strength EXTREMITIES: Lower extremities free of edema. Distal left lower extremity erythema with mild swelling of the left foot and two ulcers on the instep of the left foot. Left foot is deviated medially. NEUROLOGICAL: Awake, alert and oriented x3. CN 3-12 grossly intact. Mildly slowed by appropriate [id number] testing. Nondysarthric speech. PSYCHIATRIC: Mood and affect appear appropriate. Labs and radiology : reviewed. ASSESSMENT & PLAN: This is a 79yo female with h/o ESRD on HD, granulomatosis with polyangiitis, HTN, ACD, paroxysmal afib not on AC, who presented to ED directly from dialysis with oxygen desaturations in to the 80s with associated chills. She was admitted for acute hypoxic respiratory failure with presumed CAP. Pneumonia with sepsis continue ceftriaxone and doxycycline Acute hypoxic respiratory failure 2/2 CAP with sepsis admitted in December 2019 with b/l PNA Two BCx and sputum Cx pending Ceftriaxone and Doxycycline (known allergy to clarithromycin) ESRD on HD via cvc (MWF), secondary hyperparathyroidism. Due to Microscopic polyangitis. new HD. on hd for 3 weeks Nephro on board. Chronic anemia worse today. May due to IVF anemia of chronic disease on prior records No iron deficiency receives aranesp Microscopic polyangiitis with lung involvement. p-ANCA was elevated She was treated with steroids and mycophenolate but had stopped taking meds. Received pulse steroids 3 weeks ago and is on prednisone taper. continue prednisone 10 mg daily. patient noncompliant with meds. Severe protein calorie malnutrition BMI of 15.3, low albumin , bitemporal wasting and wasting of intercostal muscles. Hypertension c/w home amlodipine and losartan 2g Na diet ordered Mild nonmitral valvular heart disease with Moderate pulmonary hypertension. has Mils and Mild AR and Mild MR. EF low normal 50% to 55% Vitamin D deficiency c/w home calcitriol Paroxysmal atrial fibrillation not on anticoagulation now in sinus rhythm Impaired mobility/deconditioning During hospital stay last month, underwent rehabilitation at [facility] Osteoporosis/OA/Vit D def continue home meds. DVT prophylaxis: Heparin sc VS,Fishbone, I+O VS, Fishbone, I+O Laboratory Tests 03/02/20 05:31 Vital Signs Date Time Temp Pulse Resp B/P (MAP) Pulse Ox O2 Delivery O2 Flow Rate FiO2 03/02/20 06:01 83 180/89 03/02/20 06:00 97.0 17 98 Room Air 03/01/20 08:00 1.0 I&O- Last 24 Hours up to 6 AM 03/02/20 05:59 Intake Total 1020 ml Output Total 800 ml Balance 220 ml SHERI STEARNS MD March 02, 2020 07:49
[2020-03-02 22:00] VITALS: BP 150/88
[2020-03-02] MEDS: cefTRIAXone SOD 1 GM in D5W MINI-BAG PLUS 50 ML IV SCH (22:12)
[2020-03-03 05:52] LABS: HEMATOCRIT 31.3 % (36.0-47.0); HEMOGLOBIN 10.2 g/dl (12.0-15.5); MEAN CORPUSCULAR HEMOGLOBIN 30.8 pg (27.0-33.0); MEAN CORPUSCULAR HGB CONC 32.6 g/dl (32.0-36.5); MEAN CORPUSCULAR VOLUME 94.6 fl (80.0-96.0); PLATELET COUNT, AUTOMATED 312 10^3/uL (150-450); RED BLOOD COUNT 3.31 10^6/uL (4.00-5.40); WHITE BLOOD COUNT 8.9 10^3/uL (4.0-10.0)
[2020-03-03 06:00] VITALS: BP 160/90
[2020-03-03 06:18] LABS: CALCIUM LEVEL 7.9 MG/DL (8.8-10.2); CREATININE FOR GFR 2.81 MG/DL (0.55-1.30); GLOMERULAR FILTRATION RATE 17.3 (>39); POTASSIUM SERUM 4.7 MEQ/L (3.5-5.1)
[2020-03-03 06:46] LABS: ANISOCYTOSIS 1+; BASOPHILS 1 % (0-1); EOSINOPHILS 4 % (0-3); LYMPHOCYTES 19 % (16-44); MONOCYTES 9 % (0-5); NEUTROPHILS 67 % (28-66); PLATELET ESTIMATE NORMAL (NORMAL)
[2020-03-03 06:47] LABS: OVALOCYTES 1+
--- NOTE | 2020-03-03 06:49 | IPN ---
DATE OF SERVICE: 03/02/2020 SUBJECTIVE: Bettye was seen and examined this morning in the hemodialysis unit receiving her routine treatment. She denies any overnight complaints or events. She is tolerating dialysis without any issues. Remains afebrile. Blood pressure has improved nicely following her hemodialysis treatment. She denies any shortness of breath or dyspnea on exertion. Temperature 97.4, pulse 84, respiratory rate 15, blood pressure pre-dialysis was 180/98 and post-dialysis was 129/92, saturating 98% on room air. Intake yesterday was 1070. Urine output yesterday was 600. Dialysis today removed 1500 mL. General: The patient is seen in the hemodialysis unit awake, alert, oriented x3, interactive, conversational, in no apparent distress. Extraocular muscles are intact. Pupils are equal and round and reactive to light. Dentures are in place. Neck is supple. There is a Perma-Cath present tunneled in the right chest wall which is in use. Cardiac: There is a systolic murmur. S1, S2. Jugular veins are not elevated. There is no significant leg edema. Lungs show symmetric air entry. She is comfortable on room air. There are no crackles or rales. Abdomen is soft and nontender. There are bowel sounds. Extremities: Lower extremities are negative for edema or cyanosis. Neurologic: She is awake, alert and oriented x3. She is interactive and conversational and cooperative with physical exam. Psychiatric: Appropriate mood and affect. LABS: White count 11.7, hemoglobin 9.2, platelets 280, sodium 139, potassium 5.5, BUN 61, creatinine 4.4. INPATIENT MEDICATIONS: Reviewed by myself. She continues on IV ceftriaxone 1 gram once daily and oral doxycycline. Medications are unchanged as compared to yesterday. PROBLEMS: 1. End-stage renal disease. The patient is dialyzed today was 1.5 liters of fluid removed. Electrolytes and volume status are reasonably acceptable. Potassium will improve with dialysis treatment. Next dialysis treatment will be on Monday according to her maintenance schedule. 2. Hypertension with end-stage renal disease. Blood pressure was significantly elevated pre-dialysis, but did improve with morning medications and with fluid removal and hemodialysis treatment. Continue amlodipine, losartan and metoprolol. 3. Anemia related to chronic inflammation and end-stage renal disease. The patient continues on Aranesp and IV iron and hemoglobin is acceptable at 9.2. 4. Microscopic polyangiitis with lung involvement. The patient is continued on oral prednisone and remains dialysis dependent.
[2020-03-03] MEDS: HEPARIN SOD (PORCINE) 5000UNITS/ML VIAL (J1644 PER 1000UNITS) SC SCH (09:13)
[2020-03-03 09:14] VITALS: BP 144/98
[2020-03-03] MEDS: amLODIPine 5 MG TAB PO SCH (09:14)
[2020-03-03] MEDS: CALCITRIOL 0.25 MCG CAP (S0169) PO SCH (09:14)
[2020-03-03] MEDS: LOSARTAN 50MG TABLET PO SCH (09:14)
[2020-03-03] MEDS: PANTOPRAZOLE 40MG TAB (PROTONIX) PO SCH (09:14)
[2020-03-03] MEDS: FUROSEMIDE 40 MG TAB PO SCH (09:14)
[2020-03-03] MEDS: DOXYCYCLINE HYCLATE 100MG TABLET PO SCH (09:15)
[2020-03-03] MEDS: predniSONE 10 MG TAB PO SCH (09:15)
[2020-03-03] MEDS: METOPROLOL SUCC (TopROL XL) 100MG *XL* TAB PO SCH (09:15)
[2020-03-03] MEDS ORDERED: MOXI1TAB PO (09:29)
--- NOTE | 2020-03-04 17:57 | DSES ---
DATE OF ADMISSION: 02/28/2020 DATE OF DISCHARGE: 03/03/2020 BOILER OUT: Dr. Mary Tolentino. Consulted Dr. Greg Hayden for dialysis needs. PRIMARY DISCHARGE DIAGNOSES: 1. Pneumonia with sepsis. 2. Acute hypoxic respiratory failure secondary to pneumonia with sepsis. 3. End-stage renal disease, on maintenance dialysis Monday, Monday, Monday. 4. History of microscopic polyangiitis. 5. Secondary hyperparathyroidism. 6. Anemia of chronic disease. 7. Severe protein calorie malnutrition, body mass index of 15.3. 8. Hypertension. 9. Mild non-mitral valvular heart disease with moderate pulmonary hypertension. 10. Vitamin D deficiency. 11. Paroxysmal atrial fibrillation, not on anticoagulation, currently sinus rhythm. 12. Deconditioning with impaired mobility. 13. Osteoporosis. 14. Osteoarthritis. DISCHARGE MEDICATIONS: - Avelox 400 mg daily - acetaminophen 500 twice a day as needed - Norvasc 5 daily - calcitriol 0.25 mcg daily - ferrous gluconate 324 daily - Candice-Leslie 0.8 mg daily - Lasix 20 daily - losartan 50 daily - metoprolol 100 daily - nitroglycerine as needed - Protonix 40 daily - vitamin B complex one tablet daily HOSPITAL COURSE: This is a 79-year-old female, admitted on 02/28/2020 with complaints of chills and shakes and hypoxia with saturation of 80%. Patient was febrile at 103.5 with white count of 15,000. Chest x-ray showed no acute infiltrate. Patient was admitted and started on ceftriaxone and doxycycline due to allergy to CLARITHROMYCIN. Respiratory panel was negative. Two sets of blood cultures were negative. Chest x-ray showed bilateral pleural effusions. Basilar pneumonia could not be ruled. Cardiomegaly, status quo. There is evidence of interstitial fibrotic change, status quo. Nephrologists, Dr. Hayden and Dr. Mayr Tolentino, were consulted for dialysis needs. Patient was kept on negative fluid balance, admission weight of 47, discharge weight of 46.7 kg. Patient remained afebrile throughout the entire admission. White count decreased to normal at 8.9 with peak of 15.3. Patient clinically felt improved with 93%-98% oxygen saturation on room air. PHYSICAL EXAMINATION ON DISCHARGE: Temperature 97.6, pulse 84, respiratory rate 18, blood pressure 144/98, 93%-98% on room air. GENERAL: Awake, alert, oriented times three. No respiratory distress. Use of respiratory accessory muscles. No jugular venous distention (JVD) or thyromegaly. LUNGS: Clear to auscultation. No wheezes, rales, or rhonchi. Able to speak in full sentences. HEART: S1, S2. A 2/6 systolic ejection murmur, 2nd intercostal space. No jugular venous pulse (JVP). Pedal pulses 2+. EXTREMITIES: No edema. Patient has two ulcers on the left foot medially. Left foot is deviated medially. LABORATORY DATA ON DISCHARGE: White count 8.9, hemoglobin 10.2, hematocrit 31, platelet count 312. Sodium 138, potassium 4.7, chloride 102, bicarbonate 29, BUN 29, creatinine 2.81, glucose 76. Two sets of blood cultures negative. Respiratory panel negative. Chest x-ray: Cannot exclude basilar pneumonia. Cardiomegaly status quo. Chronic interstitial fibrosis status quo. TIME SPENT ON DISCHARGE: 30 minutes.
== END 2020-03-03 11:15 | disposition home health service (06) | DRG 871 ==
LOC: M ED 20:08 → M ED INP 23:27 → CANRESERV 23:36 → ENRESERV 23:36 → M PCU 02-29 01:05 → M MSPAV 03-01 15:02
PROVIDERS: ADMIT Internal Medicine; ATTEND General Practice
PROC: 5A1D70Z Performance of Urinary Filtration, Intermittent, Less than 6 Hours Per Day (ICD-10-PCS; principal; 2020-03-02)
DX: A41.9 Sepsis, unspecified organism (principal); J96.01 Acute respiratory failure with hypoxia; N18.6 End stage renal disease; J18.9 Pneumonia, unspecified organism; E43 Unspecified severe protein-calorie malnutrition; M31.7 Microscopic polyangiitis; I13.2 Hypertensive heart and chronic kidney disease with heart failure and with stage 5 chronic kidney disease, or end stage renal disease; I50.42 Chronic combined systolic (congestive) and diastolic (congestive) heart failure; Z68.1 Body mass index [BMI] 19.9 or less, adult; N25.81 Secondary hyperparathyroidism of renal origin; R65.20 Severe sepsis without septic shock; M62.84 Sarcopenia; D63.1 Anemia in chronic kidney disease; I48.0 Paroxysmal atrial fibrillation; I27.20 Pulmonary hypertension, unspecified; L97.529 Non-pressure chronic ulcer of other part of left foot with unspecified severity; E55.9 Vitamin D deficiency, unspecified; E87.6 Hypokalemia; Z11.59 Encounter for screening for other viral diseases; L92.8 Other granulomatous disorders of the skin and subcutaneous tissue; R26.89 Other abnormalities of gait and mobility; Z99.81 Dependence on supplemental oxygen; Z79.899 Other long term (current) drug therapy; Z88.0 Allergy status to penicillin; Z99.2 Dependence on renal dialysis; Z88.1 Allergy status to other antibiotic agents; Z88.8 Allergy status to other drugs, medicaments and biological substances; Y95 Nosocomial condition; Z91.14 Patient's other noncompliance with medication regimen; M81.0 Age-related osteoporosis without current pathological fracture; M19.90 Unspecified osteoarthritis, unspecified site

== ENCOUNTER 2020-04-25 22:38 | Inpatient (IN) | payer MEDICARE, MEDICAID ==
[~2020-04-25] VITALS: Ht 167.6 cm; Wt 45.0 kg
[~2020-04-25 22:38] MED LIST changes: +ACET-683 PO; +AMLO5TAB6 PO; +CALC1CAP31 PO; +FERR32TA PO; +LOSA50TA88 PO; +MOXI1TAB PO; +VITATAB73 PO
[2020-04-25] MEDS ORDERED: PRED5TA PO (23:01)
[2020-04-25] MEDS ORDERED: METOCLOPRAMIDE INJ 10MG/2ML VIAL (J2765 PER 1) IV ONE (23:30)
[2020-04-25 23:47] LABS: BASO # 0.1 10^3/uL (0.0-0.2); BASO % 0.3 % (0.0-1.0); HEMATOCRIT 43.2 % (36.0-47.0); HEMOGLOBIN 13.5 g/dl (12.0-15.5); LYMPH # 0.9 10^3/uL (1.5-5.0); LYMPH % 6.5 % (24.0-44.0); MEAN CORPUSCULAR HEMOGLOBIN 29.7 pg (27.0-33.0); MEAN CORPUSCULAR HGB CONC 31.3 g/dl (32.0-36.5); MEAN CORPUSCULAR VOLUME 95.2 fl (80.0-96.0); MONO # 1.2 10^3/uL (0.0-0.8); MONO % 8.6 % (0.0-5.0); NEUTROPHILS # 12.1 10^3/uL (1.5-8.5); PLATELET COUNT, AUTOMATED 272 10^3/uL (150-450); RED BLOOD COUNT 4.54 10^6/uL (4.00-5.40); WHITE BLOOD COUNT 14.4 10^3/uL (4.0-10.0)
[2020-04-26] VITALS (9 sets, daily range): BP systolic 117–156; BP diastolic 73–92
[2020-04-26 00:12] LABS: BILIRUBIN,DIRECT 0.1 MG/DL (0.0-0.2); BILIRUBIN,TOTAL 0.4 MG/DL (0.2-1.0); CALCIUM LEVEL 10.1 MG/DL (8.8-10.2); CREATININE FOR GFR 4.84 MG/DL (0.55-1.30); GLOMERULAR FILTRATION RATE 9.3 (>39); POTASSIUM SERUM 4.4 MEQ/L (3.5-5.1); TOTAL PROTEIN 7.9 GM/DL (6.4-8.2)
[2020-04-26] MEDS: GASTROGRAFIN SOLUTION 30ML PO SCH ×2 (00:27→00:56)
--- NOTE | 2020-04-26 02:35 | REPVR ---
PROCEDURE INFORMATION: Exam: CT Abdomen And Pelvis Without Contrast Exam date and time: 04/26/2020 1:51 AM Age: 79 years old Clinical indication: Abdominal pain; Additional info: Llq pain/renal failure TECHNIQUE: Imaging protocol: Computed tomography of the abdomen and pelvis without contrast. Radiation optimization: All CT scans at this facility use at least one of these dose optimization techniques: automated exposure control; mA and/or kV adjustment per patient size (includes targeted exams where dose is matched to clinical indication); or iterative reconstruction. Other contrast: Oral, gastrographin ; COMPARISON: CT ABD PELVIS W/O CONTRAST 04/27/2015 6:48 PM FINDINGS: Heart: Small pericardial effusion. Mediastinal space: Small hiatal hernia. Liver: Normal. No mass. Gallbladder and bile ducts: Gallbladder is distended. No calcified gallbladder stones or biliary duct dilation. Pancreas: Normal. No ductal dilation. Spleen: Normal. No splenomegaly. Adrenals: Normal. No mass. Kidneys and ureters: Kidneys are atrophic. No hydronephrosis. Stomach and bowel: The stomach and small bowel are dilated with a large amount of fluid and oral contrast. Small bowel measures up to 3.5 cm in diameter. Bowel is dilated to the level of a right inguinal hernia which contains a short segment of fluid-filled bowel. There is also a right obturator hernia containing a short loop of small bowel. Small bowel distal to the hernia is is completely decompressed. Colon is nondistended. There is colonic diverticulosis without evidence of diverticulitis. Appendix: The appendix is not well-visualized. No right lower quadrant inflammatory changes. Intraperitoneal space: Small amount of free fluid in the pelvis. No pneumoperitoneum. Vasculature: Advanced coronary artery atherosclerotic disease. Lymph nodes: Unremarkable. No enlarged lymph nodes. Bladder: Unremarkable as visualized. Reproductive: Multiple calcified fibroids in the uterus. Bones/joints: There are advanced degenerative changes in the spine and pelvis. Degenerative lumbar levoscoliosis. There is approximately 50% leftward subluxation of L4 on L5 and milder subluxations in the upper lumbar spine. Incidental Tarlov cysts are noted in the sacral spinal canal. Soft tissues: Unremarkable. IMPRESSION: 1. High-grade small bowel obstruction. Right inguinal hernia and right obturator hernia, both of which contain short segments of small bowel. 2. Colonic diverticulosis without evidence of diverticulitis. 3. Fibroid uterus. 4. Distended gallbladder without inflammatory changes. Consider ultrasound follow-up if there is concern for acute cholecystitis. Electronically signed by: Eriberto Acevedo On 04/26/2020 02:35:07 AM
[2020-04-26] MEDS ORDERED: METOPROLOL 5 MG/5 ML VIAL IV STA (03:32)
[2020-04-26] MEDS ORDERED: BUPIVACAINE/EPIN 0.25% 30 ML VIAL As Ordered ONE (05:28)
[2020-04-26] MEDS ORDERED: ERTAPENEM 1GM VIAL(INVanz) (J1335 PER 500MG) As Ordered ONE (06:25)
[2020-04-26] MEDS ORDERED: VASOPRESSIN INJ 20 UNITS/ML VIAL As Ordered ONE (06:46)
[2020-04-26] MEDS ORDERED: dexameTHASONE 4 MG/ML 1ML VIAL (J1100 PER 1MG) As Ordered ONE (06:48)
[2020-04-26] MEDS ORDERED: ROCURONIUM BROMIDE 50 MG/5 ML VIAL As Ordered ONE ×2 (06:48→07:08)
[2020-04-26] MEDS ORDERED: DESFLURANE 240 ML INHALANT As Ordered ONE (06:48)
[2020-04-26] MEDS ORDERED: propofoL 200 MG/20 ML VIAL As Ordered ONE (06:48)
[2020-04-26] MEDS ORDERED: fentaNYL 250 MCG/5 ML INJECTION (J3010) As Ordered ONE (06:48)
[2020-04-26] MEDS ORDERED: SUGAMMADEX SODIUM 500 MG/5 ML VIAL (BRIDION) As Ordered ONE (06:48)
[2020-04-26] MEDS ORDERED: MIDAZOLAM INJ 2MG/2ML VIAL (J2250 PER 1MG) As Ordered ONE (06:48)
[2020-04-26] MEDS ORDERED: METOCLOPRAMIDE INJ 10MG/2ML VIAL (J2765 PER 1) As Ordered ONE (06:48)
[2020-04-26] MEDS ORDERED: ONDANSETRON 4MG/2ML VIAL As Ordered ONE (06:48)
[2020-04-26] MEDS ORDERED: LIDOCAINE 2% 100MG/5ML SDV (FOR ANES.) As Ordered ONE (06:48)
[2020-04-26] MEDS ORDERED: PHENYLephrine HCL 500 MCG/5 ML (100MCG/ML) SYRINGE (J2370) As Ordered ONE ×2 (06:52→07:30)
[2020-04-26] MEDS ORDERED: ACETAMINOPHEN 1000MG 100ML IV BTL (OFIRMEV) (J0131 PER 10MG) As Ordered ONE (07:37)
--- NOTE | 2020-04-26 07:47 | REP ---
Clinical: Nasogastric tube placement. Comparison: 02/28/2020. Findings: Nasogastric tube courses below left hemidiaphragm in satisfactory position. Double-lumen dialysis catheter with tip in the right atrium. Mediastinum and cardiac silhouette are normal. Lung alvarado are clear. Skeletal structures demonstrate chronic scoliosis. Impression: Nasogastric tube in satisfactory position. No focal consolidation or effusion. Electronically Signed by Driss Richardson MD 04/26/2020 07:39 A
[2020-04-26] MEDS ORDERED: ACETAMINOPHEN 500 MG TAB PO PRN (08:30)
[2020-04-26] MEDS ORDERED: ONDANSETRON 4MG/2ML VIAL IV PRN ×2 (08:30→09:00)
[2020-04-26] MEDS ORDERED: MORPHINE 2 MG/ML 1ML VIAL (J2270) IV PRN (08:30)
[2020-04-26] MEDS: LOSARTAN 50MG TABLET PO SCH ×2 (09:00→09:55)
[2020-04-26] MEDS: FUROSEMIDE 20 MG TAB PO SCH ×2 (09:00→09:57)
[2020-04-26] MEDS: METOPROLOL SUCC (TopROL XL) 100MG *XL* TAB PO SCH ×2 (09:00→09:56)
[2020-04-26] MEDS ORDERED: fentaNYL 100 MCG/2 ML INJECTION (J3010) IV PRN (09:00)
[2020-04-26] MEDS ORDERED: ENOXAPARIN 30MG/0.3ML SYRINGE (J1650 PER 10MG) SC SCH (09:00)
[2020-04-26] MEDS ORDERED: LR 1,000 ML IV SCH (09:00)
[2020-04-26] MEDS: CALCITRIOL 0.25 MCG CAP (S0169) PO SCH ×2 (09:00→09:55)
[2020-04-26] MEDS: SENOKOT S TAB PO SCH ×4 (09:00→20:45)
[2020-04-26] MEDS: amLODIPine 5 MG TAB PO SCH ×2 (09:00→09:57)
[2020-04-26] MEDS: predniSONE 5 MG TAB PO SCH ×2 (09:00→09:56)
[2020-04-26] MEDS ORDERED: PANTOPRAZOLE 40MG TAB (PROTONIX) PO SCH (09:00)
[2020-04-26] MEDS ORDERED: NS 1,000 ML IV SCH (09:00)
[2020-04-26] MEDS: PANTOPRAZOLE 40MG VIAL (C9113 PER 1) IV SCH (09:55)
[2020-04-26] MEDS: D5W/0.9% SODIUM CHLORIDE 1,000 ML IV SCH ×2 (11:33→23:58)
[2020-04-26 12:17] LABS: ALBUMIN 3.4 GM/DL (3.2-5.2); CALCIUM LEVEL 8.7 MG/DL (8.8-10.2); CREATININE FOR GFR 5.58 MG/DL (0.55-1.30); GLOMERULAR FILTRATION RATE 7.9 (>39); PHOSPHORUS LEVEL 3.9 MG/DL (2.5-4.9); POTASSIUM SERUM 4.2 MEQ/L (3.5-5.1)
--- NOTE | 2020-04-26 15:02 | HPE ---
DATE OF ADMISSION: 04/26/2020 CHIEF COMPLAINT: Nausea and vomiting. HISTORY OF PRESENT ILLNESS: The patient is a 79-year-old female who presented to emergency room with complaints of nausea, vomiting, abdominal pain and distention, found to have a small bowel obstruction secondary to an incarcerated right obturator hernia on her CT. She also had a lactic acidosis and a leukocytosis in the emergency room (ER). I was called to evaluate. I came in and saw her urgently in the emergency room. Her abdomen was distended. However, already showing signs of improvement with almost 2 liters out of her nasogastric (NG) tube since placement. Repeat lactic acid was done, which still remained high, increasing my suspicion for strangulation. Therefore, my initial concern was getting her into the operating room as soon as possible. She claims that she has had right groin pain radiating into her back for a few months. She always thought it was sciatic. There is no distinct palpable lumps anywhere in her groin or her thigh. She denies any history of prior surgery to the abdomen. No prior known history of any hernias. No recent travel or trauma. No recent changes in activity. No fevers. Her last bowel movement was yesterday, which was normal, and no problems with urination. No numbness or tingling in the skin, in the thigh, or the groin. PAST MEDICAL HISTORY: Paroxysmal atrial fibrillation (AFib), end-stage renal disease on dialysis Monday, Monday, Monday, granulomatosis with polyangiitis, hypertension, anemia of chronic disease, vitamin D deficiency. PAST SURGICAL HISTORY: Right chest PermCath placement. SOCIAL HISTORY: Denies drug, alcohol, tobacco abuse. FAMILY HISTORY: Noncontributory. ALLERGIES: PENICILLIN, CLARITHROMYCIN, CORTISONE, COUMADIN, LISINOPRIL, ISOTRETINOIN. MEDICATIONS: See medical record. REVIEW OF SYSTEMS: Pertinent positives and negative as stated in history of present illness (HPI). PHYSICAL EXAMINATION: General: Alert and oriented times three. No acute stress. Vital signs: Temperature is 97.3, pulse 90, respirations 14, blood pressure 118/73, pulse oximetry 95% on room air. HEENT: Pupils equally round and react to light and accommodation. Heart: S1, S2, regular rate and rhythm. Lungs: Clear to auscultation bilaterally. Abdomen: Soft, distended, slight tenderness to palpation in the right groin. There was a slight bulge in the right groin that is tender to palpation. However, is not distinctly palpable as a hernia. It is very inferior. cathodic protection technician was close by in the emergency room, and he was able to stop and confirm that that was a hernia with a nonreducible bowel. He was able to do that for me right at the bedside. Extremities: No clubbing, cyanosis, or edema. LABORATORY DATA: White count 14.4, hemoglobin 30.5, platelets 272. Potassium 4.4, creatinine 4.84, lactic acid 5.3 with a repeat at 4.9, albumin is 4, lipase 147. IMAGING STUDIES: CT abdomen and pelvis showed high-grade small bowel obstruction, right obturator hernia, and right inguinal hernia, both which contain short segments of small bowel, colonic diverticulosis without evidence of diverticulitis, fibroid uterus, distended gallbladder without inflammatory changes. ASSESSMENT AND PLAN: The patient is a 79-year-old female with a right inguinal hernia and a right obturator hernia that is incarcerated, possibly strangulated. Recommendation is to proceed with urgent surgery for reduction of the small bowel obstruction, possible bowel resection, and hernia repair. Risks and benefits of the procedure not limited but including bleeding, infection, hernia formation, hernia recurrence, damage to surrounding structures, need for further surgery discussed in detail with the patient. Informed consent was obtained, and procedure was planned. Postoperatively, she will be kept in the hospital for a couple of days, treated with the NG tube until her bowel obstruction is resolved. I will plan on consulting hospitalist, as well as nephrology, during her stay.
--- NOTE | 2020-04-26 15:41 | CR ---
DATE OF CONSULTATION: 04/26/2020 REQUESTING PHYSICIAN: Rex Puente DO CONSULTING PHYSICIAN: Greg Hayden MD REASON FOR CONSULTATION: Management of end-stage renal disease, on hemodialysis. CHIEF COMPLAINT: The patient presented to the hospital last night with progressive abdominal pain. NOTE: History was obtained from the patient's chart and from previous documentations. The patient is unable to provide any reliable history at this time. HISTORY OF PRESENT ILLNESS: Bettye Ocampo is a 79-year-old female with past medical history of end-stage renal disease, on hemodialysis every Monday, Monday, Monday. She is well known to nephrology service from previous hospitalizations and from outpatient hemodialysis. 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 She presented to the hospital yesterday with progressive abdominal pain, decreased appetite, nausea, and vomiting. Further evaluation done in the emergency room showed that the patient had a small bowel obstruction, and she was found to have an inguinal hernia and a right obturator hernia. She was found to have elevated lactate levels; and because of the incarcerated hernia, the patient was taken to the operating room (OR) by Dr. Puente. She got the laparoscopic robotic-assisted inguinal hernia and right obturator hernia surgery. She has come back from the OR. Nephrology service has been called for further help in the management of this patient with end-stage renal disease, on hemodialysis. I saw and evaluated the patient today morning at the bedside. She was awake. She was able to answer a few questions, but she was not able to provide any reliable history. She complains of a mild amount of pain at the surgical site. She was getting intravenous (IV) fluid hydration with normal saline at 80 mL an hour, and nasogastric tube was attached to suctioning when I saw her. 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 PAST SURGICAL HISTORY: Status post tunneled hemodialysis catheter placement, history of renal biopsy in the past. ALLERGIES: The patient is allergic to PENICILLIN, MACROLIDES, CORTISONE, ISOTRETINOIN, LISINOPRIL, WARFARIN. FAMILY HISTORY: No significant family history of end-stage renal disease requiring hemodialysis. SOCIAL HISTORY: The patient lives at home. She denies any smoking, illicit drug abuse, or alcohol abuse. REVIEW OF SYSTEMS: The patient is unable to provide any reliable review of systems because she just came back from the postanesthesia care unit (PACU). She is under the effect of pain medications and recovering from anesthesia. She just complains of abdominal pain at this time. PHYSICAL EXAMINATION: General: The patient is drowsy but easily arousable, laying in bed. She is oriented times one. Vital signs: Temperature is 97.2 degrees Fahrenheit, blood pressure 156/92, pulse is 78, respiratory of 17, saturating 98% on room air. Head and neck examination: Extraocular muscles intact. Pupils equally round and reactive to light. Mucous membranes are moist. Neck is supple. There is no jugular venous distention (JVD). Cardiovascular: S1, S2, regular rate. No edema of the bilateral lower extremities. Respiratory: Chest is clear to auscultation bilaterally. Bilateral equal air entry. No rales or rhonchi. Abdomen: Soft. She has a surgical dressing at three laparoscopic sites in the abdomen. Bowel sounds are positive. Genitourinary: Bladder is not palpable. Musculoskeletal: No clubbing or cyanosis. Pulses are 2+. Central nervous system (ENVIRONMENTAL MONITORING SPECIALIST): The patient is drowsy. Otherwise, she moves extremities and follows a few commands. LABORATORY REVIEW: Complete blood count (CBC) showed a WBC 14.4, hemoglobin is 13.5, platelets are 172. Basic metabolic profile (BMP) showed sodium 139, potassium 4.2, chloride 100, bicarbonate 27, BUN 56, creatinine is 5.5, calcium 8.7, phosphorus is 3.9, albumin is 3.4. Repeat lactic acid today morning was 5.9. IMAGING STUDIES: A chest x-ray was done today morning, which showed nasogastric tube in satisfactory position. No focal consolidation or effusion was seen. A CAT scan of the abdomen and pelvis done yesterday showed that the patient had high-grade small bowel obstructions, right inguinal hernia, right obturator hernia, both which contained short segments of the small bowel. CURRENT INPATIENT MEDICATIONS: The patient was getting normal saline at 75 mL/h. I have changed the IV fluid to D5 normal saline at 80 mL/h. She has Tylenol as needed, amlodipine 5 mg daily, calcitriol 0.25 mcg by mouth daily. She is on Lovenox 30 mcg subcutaneous daily, losartan 50 mg daily, Reglan as needed, metoprolol XL 100 mg by mouth daily, Protonix 40 mg IV daily, prednisone 50 mg by mouth daily, morphine as needed for pain. ASSESSMENT: A 79-year-old female with history of end-stage renal disease on hemodialysis secondary to microscopic polyangiitis, history of hypertension, atrial fibrillation, admitted this time because of incarcerated right inguinal and obturator hernia. PLAN: 1. Acute incarcerated right inguinal and obturator hernia. The patient was emergently taken to the OR. She got laparoscopic reduction of the hernia. Currently, she has NGT attached to suctioning. She is getting IV fluid hydration. Pain is optimized with IV pain medications. The patient is hemodynamically stable. 2. Lactic acidosis. Most likely, it was secondary to incarcerated hernia and gut ischemia. Lactic acid level was still high in the morning. The patient is getting adequate hydration. I am going to repeat another lactic level. Hopefully, it should be getting better after surgery. 3. End-stage renal disease. The patient's regular dialysis days are Monday, Monday, Monday. She will be dialyzed tomorrow morning as per her regular schedule. 4. History of microscopic polyangiitis. The patient is on a low dose of prednisone. The reported dose at this time is 15 mg. I would continue the current dose of this time. The patient is not very compliant with her medications at home. 5. Hypertension with end-stage renal disease. Continue current dose of amlodipine 5 mg by mouth daily, losartan 50 mg by mouth daily, and metoprolol 50 mg by mouth twice a day. 6. Atrial fibrillation. Heart rate is controlled at this time. Continue current dose of metoprolol of 50 mg by mouth twice a day. She is not on anticoagulation. She is allergic to WARFARIN. 7. Secondary hyperparathyroidism. The patient is taking calcitriol 0.25 mcg daily. Continue current dose. I would confirm the dose from dialysis records and change her dose as needed. Thank you for involving me in the care of this patient. I shall be happy to follow the patient along with you tomorrow morning. MTDD
[2020-04-26] MEDS: METOPROLOL TART 50 MG TAB PO SCH (20:41)
--- NOTE | 2020-04-26 23:00 | CR.PDOC ---
General Date of Consultation: Apr 26, 2020 Referring Provider: JEMAL DAILEY DO Consultation REASON FOR CONSULTATION/CHIEF COMPLAINT: Management of multiple medical comorbidities HISTORY OF PRESENT ILLNESS: : The patient is a 79-year-old female with PMH of ESRD, Microscopic Polyangitis with lung involvement, paroxysmal atrial fibrillation, hypertension, anemia of chronic disease, severe protein calorie malnutrition, mild non rheumatic valvular heart disease with Moderate pulmonary hypertension, vit d def, Oa, Osteoporosis presented to emergency room with complaints of nausea, vomiting, abdominal pain and distention, found to have a small bowel obstruction secondary to an incarcerated right obturator hernia on her CT. She also had a lactic acidosis and a leukocytosis in the emergency room (ER). Patient was admitted to the surgical service and taken to the OR urgently. Hospitalist was consulted for management of medical comorbidities. I saw the patient after the surgery. She was still somnolent from the anesthesia. She woke up easily when called and complained of abdominal pain, dull aching in the right lower abdomen about 5/10 in intensity not radiation. Denied any fever or chills. No chest pain or sob or cough. ALLERGIES: Please see below. HOME MEDICATIONS: Please see below. 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 Lives alone. Has two grown sons (one lives in [place], [place], the other in [facility] Retired. Holds Associates degree from [employer]. Denies current or former tobacco use. No current EtOH use with former use only socially. Denies current or former illicit drug use. REVIEW OF SYSTEMS: As per HPI. PHYSICAL EXAMINATION: VITAL SIGNS: Please see below. GENERAL APPEARANCE: cachectic , laying in bed in no distress, somnolent. HEENT: Normocephalic atraumatic, moist mucous membranes, anicteric eyes. Bilateral temporal wasting. RESPIRATORY: anteriorly clear to auscultation, basal crackles CARDIOVASCULAR: S1, S2 regular , no murmur or gallop ABDOMEN: Soft , tender at the right iliac fosssa, absent bowel sounds. NG tube present. EXTREMITIES: No cyanosis or edema NEUROLOGICAL: No focal neurodeficits. LABORATORY DATA: Please see below. ASSESSMENT/PLAN: The patient is a 79-year-old female with PMH of ESRD, Microscopic Polyangitis with lung involvement, paroxysmal atrial fibrillation, hypertension, anemia of chronic disease, severe protein calorie malnutrition, mild non rheumatic valvular heart disease with Moderate pulmonary hypertension, vit d def, Oa, Osteoporosis presented to emergency room with complaints of nausea, vomiting, abdominal pain and distention, found to have a small bowel obstruction secondary to an incarcerated right obturator hernia on her CT and an inguinal hernia. She underwent laparoscopic robotic-assisted inguinal hernia and right obturator hernia surgery. SBO/ Incarcerated right obturator hernia without strangulation s/p laparoscopic robotic-assisted inguinal hernia and right obturator hernia surgery on 04/26/20 No bowel needed to be excised IVF, NG tube. Management as per surgery ESRD on HD via cvc (MWF) Due to Microscopic polyangitis. Nephro on board. Anemia of chronic disease No iron deficiency receives aranesp Secondary hyperparathyroidism. calcitriol Microscopic polyangiitis with lung involvement. p-ANCA was elevated continue prednisone Severe protein calorie malnutrition BMI of 16.8, low albumin , bitemporal wasting and wasting of intercostal muscles. Hypertension c/w home amlodipine and losartan with hold parameters Metoprolol succinate changed to metoprolol tartrate as succinate cannot be crushed. Mild non rheumatic valvular heart disease with Moderate pulmonary hypertension. has Mils and Mild AR and Mild MR. EF low normal 50% to 55% Vitamin D deficiency c/w home calcitriol Paroxysmal atrial fibrillation not on anticoagulation now in sinus rhythm Impaired mobility/deconditioning During hospital stay last month underwent ARU stay recently Osteoporosis/OA/Vit D def continue home meds when taking po. DVT prophylaxis: Heparin sc Vital Signs/I&O Vital Signs Date Time Temp Pulse Resp B/P (MAP) Pulse Ox O2 Delivery O2 Flow Rate FiO2 04/26/20 20:41 86 156/94 04/26/20 18:15 98.7 16 98 Room Air I&O- Last 24 Hours up to 6 AM 04/26/20 07:00 Output Total 1500 ml Balance -1500 ml Laboratory Data Labs 24H Laboratory Tests 2 04/25/20 23:29: Immature Granulocyte % (Auto) 0.6, Neutrophils (%) (Auto) 84.0H, Lymphocytes (%) (Auto) 6.5L, Monocytes (%) (Auto) 8.6H, Eosinophils (%) (Auto) 0.0, Basophils (%) (Auto) 0.3, Neutrophils # (Auto) 12.1H, Lymphocytes # (Auto) 0.9L, Monocytes # (Auto) 1.2H, Eosinophils # (Auto) 0.0, Basophils # (Auto) 0.1, Nucleated Red Blood Cells % (auto) 0.0, Anion Gap 15, Glomerular Filtration Rate 9.3L, Calcium Level 10.1, Total Bilirubin 0.4, Direct Bilirubin 0.1, Aspartate Amino Transf (AST/SGOT) 28, Alanine Aminotransferase (ALT/SGPT) 35, Alkaline Phosphatase 67, Total Protein 7.9, Albumin 4.0, Albumin/Globulin Ratio 1.0L, Lipase 147 04/26/20 00:07: Lactic Acid Level 5.3*H 04/26/20 03:08: Lactic Acid Level 4.9*H 04/26/20 08:46: Lactic Acid Followup at 4 Hours 5.9*H 04/26/20 11:46: Anion Gap 12, Glomerular Filtration Rate 7.9L, Calcium Level 8.7L, Phosphorus Level 3.9, Albumin 3.4 04/26/20 15:11: Lactic Acid Level 3.7*H 04/26/20 19:33: Lactic Acid Followup at 4 Hours 2.1*H CBC/BMP Laboratory Tests 04/25/20 23:29 04/26/20 11:46 Microbiology Microbiology 04/26/20 Respiratory Virus Panel (PCR) ([facility]ILBERTO) - Final, Complete Allergies Coded Allergies: Penicillins (Verified Allergy, Intermediate, RASH, 04/26/20) clarithromycin (Verified Allergy, Intermediate, rash, 01/08/20) warfarin (Verified Allergy, Intermediate, HALLUCINAIONS, 04/26/20) isotretinoin (Verified Allergy, Mild, 02/28/20) cortisone (Verified Allergy, Unknown, 01/08/20) lisinopril (Verified Allergy, Unknown, 01/08/20) Home Medications Scheduled Amlodipine Besylate (Amlodipine Besylate) 5 Mg Tablet, 5 MG PO DAILY, (Reported) Calcitriol (Calcitriol) 0.25 Mcg Capsule, 0.25 MCG PO DAILY, (Reported) Folic Acid/Vit B Complex and C (Candice-Leslie Tablet) 0.8 Mg Tablet, 0.8 MG PO DAILY, (Reported) Furosemide (Furosemide) 20 Mg Tablet, 20 MG PO DAILY, (Reported) Losartan Potassium (Losartan Potassium) 50 Mg Tablet, 50 MG PO DAILY, (Reported) Metoprolol Succinate (Metoprolol Succinate) 100 Mg Tab.er.24h, 100 MG PO DAILY, (Reported) Pantoprazole Sodium (Pantoprazole Sodium) 40 Mg Tablet.dr, 40 MG PO DAILY, (Reported) Prednisone (Prednisone) 5 Mg Tablet, 15 MG PO DAILY, (Reported) Vitamin B Complex (Vitamin B Complex) 1 Each Tablet, 1 TAB PO DAILY, (Reported) Scheduled PRN Acetaminophen (Acetaminophen) 500 Mg Tablet, 500 MG PO BID PRN for PAIN, (Reported) Nitroglycerin (Nitrostat) 0.4 Mg Tab.subl, 0.4 MG SL NITRO PRN for CHEST PAIN, (Reported) SHERI STEARNS MD Apr 26, 2020 23:00
[2020-04-27 02:00] VITALS: BP 148/76
[2020-04-27] MEDS: LOSARTAN 50MG TABLET PO SCH (05:38)
[2020-04-27 06:00] VITALS: BP 148/82
[2020-04-27] MEDS: SENOKOT S TAB PO SCH ×2 (06:19→21:01)
[2020-04-27] MEDS: CALCITRIOL 0.25 MCG CAP (S0169) PO SCH (06:19)
[2020-04-27] MEDS: predniSONE 5 MG TAB PO SCH (06:19)
[2020-04-27] MEDS: METOPROLOL TART 50 MG TAB PO SCH ×2 (06:20→18:30)
[2020-04-27] MEDS: PANTOPRAZOLE 40MG VIAL (C9113 PER 1) IV SCH (06:21)
[2020-04-27] MEDS: amLODIPine 5 MG TAB PO SCH (06:21)
--- NOTE | 2020-04-27 06:26 | IPNPDOC ---
Text Note Date of Service The patient was seen on 04/27/20. NOTE No acute events overnight. Tolerating NG with bilious output still. Denies melonie sea, emesis, or fevers. She is having pain in her throat and throughout her abdomen. VSSAF NAD abd - soft, TTP diffuse, no rebound or guarding, incisions c/d/i A) 79y/o female POD#1 s/p RA Incarcerated rt obturator hernia repair. ESRD paroxysmal A.fib P) PT/OT sips and chips NGT to LIS pain control monitor electrolytes amb in [place] OOB to chair HD today await return of bowel function. Kalpesh Puente DO VS,Ghada, I+O VS, Shannae, I+O Laboratory Tests 04/26/20 11:46 Vital Signs Date Time Temp Pulse Resp B/P (MAP) Pulse Ox O2 Delivery O2 Flow Rate FiO2 04/27/20 02:00 99.0 80 16 148/76 (100) 96 Room Air I&O- Last 24 Hours up to 6 AM 04/27/20 06:00 Intake Total 700 ml Output Total 180 ml Balance 520 ml JEMAL PUENTE DO Apr 27, 2020 06:26
[2020-04-27 06:37] LABS: HEMATOCRIT 33.3 % (36.0-47.0); MEAN CORPUSCULAR HEMOGLOBIN 30.5 pg (27.0-33.0); MEAN CORPUSCULAR HGB CONC 31.8 g/dl (32.0-36.5); MEAN CORPUSCULAR VOLUME 95.7 fl (80.0-96.0); PLATELET COUNT, AUTOMATED 203 10^3/uL (150-450); RED BLOOD COUNT 3.48 10^6/uL (4.00-5.40); WHITE BLOOD COUNT 10.1 10^3/uL (4.0-10.0)
[2020-04-27 06:38] LABS: HEMOGLOBIN 10.6 g/dl (12.0-15.5)
[2020-04-27 07:03] LABS: ALBUMIN 2.8 GM/DL (3.2-5.2); BILIRUBIN,TOTAL 0.3 MG/DL (0.2-1.0); CALCIUM LEVEL 7.9 MG/DL (8.8-10.2); CREATININE FOR GFR 6.18 MG/DL (0.55-1.30); MAGNESIUM LEVEL 2.2 MG/DL (1.8-2.4); POTASSIUM SERUM 4.2 MEQ/L (3.5-5.1); TOTAL PROTEIN 5.7 GM/DL (6.4-8.2)
[2020-04-27] MEDS: HEPARIN SOD (PORCINE) 5000UNITS/ML VIAL (J1644 PER 1000UNITS) SQ SCH ×2 (08:33→21:01)
[2020-04-27] MEDS: D5W/0.9% SODIUM CHLORIDE 1,000 ML IV SCH ×2 (12:25→22:32)
--- NOTE | 2020-04-27 13:02 | IPNPDOC ---
Text Note Date of Service The patient was seen on 04/27/20. NOTE SUBJECTIVE: Complains of soreness of the abdomen and soreness inthe throat. No fever or chills. Had HD this morning. PHYSICAL EXAMINATION: VITAL SIGNS: Please see below. GENERAL APPEARANCE: cachectic , laying in bed in no distress, awake and alert. HEENT: Normocephalic atraumatic, moist mucous membranes, anicteric eyes. Bilateral temporal wasting. RESPIRATORY: anteriorly clear to auscultation, basal crackles CARDIOVASCULAR: S1, S2 regular , no murmur or gallop ABDOMEN: Soft , tender at the right iliac fossa, good bowel sounds heard. EXTREMITIES: No cyanosis or edema NEUROLOGICAL: No focal neurodeficits. LABORATORY DATA: Please see below. ASSESSMENT/PLAN: The patient is a 79-year-old female with PMH of ESRD, Microscopic Polyangitis with lung involvement, paroxysmal atrial fibrillation, hypertension, anemia of chronic disease, severe protein calorie malnutrition, mild non rheumatic valvular heart disease with Moderate pulmonary hypertension, vit d def, Oa, Osteoporosis presented to emergency room with complaints of nausea, vomiting, abdominal pain and distention, found to have a small bowel obstruction secondary to an incarcerated right obturator hernia on her CT and an inguinal hernia. She underwent laparoscopic robotic-assisted inguinal hernia and right obturator hernia surgery. SBO/ Incarcerated right obturator hernia without strangulation s/p laparoscopic robotic-assisted inguinal hernia and right obturator hernia surgery on 04/26/20 No bowel needed to be excised Management as per surgery ESRD on HD via cvc (MWF) Due to Microscopic polyangitis. Nephro on board. Anemia of chronic disease No iron deficiency receives aranesp Secondary hyperparathyroidism. calcitriol Microscopic polyangiitis with lung involvement. p-ANCA was elevated continue prednisone Severe protein calorie malnutrition BMI of 16.8, low albumin , bitemporal wasting and wasting of intercostal muscles. Hypertension c/w home amlodipine and losartan with hold parameters Metoprolol succinate changed to metoprolol tartrate as succinate cannot be crush ed. Mild non rheumatic valvular heart disease with Moderate pulmonary hypertension. has Mils and Mild AR and Mild MR. EF low normal 50% to 55% Vitamin D deficiency c/w home calcitriol Paroxysmal atrial fibrillation not on anticoagulation now in sinus rhythm Impaired mobility/deconditioning During hospital stay last month underwent ARU stay recently Osteoporosis/OA/Vit D def continue home meds when taking po. DVT prophylaxis: Heparin sc VS,Fishbone, I+O VS, Fishbone, I+O Laboratory Tests 04/27/20 05:42 Vital Signs Date Time Temp Pulse Resp B/P (MAP) Pulse Ox O2 Delivery O2 Flow Rate FiO2 04/27/20 06:20 80 140/76 04/27/20 06:00 99.1 16 96 Room Air I&O- Last 24 Hours up to 6 AM 04/27/20 05:59 Intake Total 700 ml Output Total 180 ml Balance 520 ml SHERI STEARNS MD Apr 27, 2020 13:02
[2020-04-27 14:00] VITALS: BP 150/62
--- NOTE | 2020-04-27 14:55 | IPN ---
DATE OF SERVICE: 04/27/2020 SUBJECTIVE: Patient was seen and examined at the bedside today morning. During hemodialysis, she is tolerating the hemodialysis procedure well. She reports that her abdominal pain is getting better. She still has nasogastric tube (NGT) attached to suctioning. She reports feeling thirsty. She is otherwise tolerating the dialysis well. OBJECTIVE: Vital Signs: Temperature is 99.1 degrees Fahrenheit, blood pressure 148/82, pulse is 86, respiratory rate of 16, saturating 96% on room air. Intake/Output. There is no urine output recorded. NGT suctioning drainage was 1680 mL yesterday, 225 mL so far today since overnight. PHYSICAL EXAMINATION: General: Patient is awake, alert, oriented times three, laying in bed, in no apparent distress. Head/Neck Exam: Extraocular muscles intact. Pupils equally round and reactive to light. Mucous membranes are moist. Neck is supple. She has a right internal jugular (IJ) tunneled hemodialysis catheter being used for dialysis. Cardiovascular: S1, S2, regular rate. No edema of the bilateral lower extremities. Respiratory: Chest is clear to auscultation bilaterally. Bilateral equal air entry. Abdomen: Soft. Three laparoscopic surgical sites have dressings and mildly tender to deep palpation. Bowel sounds are present. Genitourinary: Bladder is not palpable. Musculoskeletal: No clubbing or cyanosis. Pulses are 2+. Central Nervous System (TRAFFIC OPERATOR): No focal deficit. Patient moves extremities and follows commands. LAB REVIEW: Complete blood count (CBC) showed WBC of 10.1, hemoglobin is 10.6, platelets are 203. Basic metabolic panel (BMP) showed sodium 142, potassium 4.2, chloride 104, bicarbonate 26, BUN 65, creatinine 6.1. Lactic acid level latest was 2.1 yesterday. Albumin is 2.8. CURRENT INPATIENT MEDICATIONS: Patient's medications were all reviewed by myself. Patient is in negative fluid balance despite getting D5W with normal saline at 80 mL/h. I have increased the rate to 90 mL/h. I also gave her a bolus of 500 mL of normal saline during dialysis. Otherwise, there is no significant change in the medications today as compared with yesterday. ASSESSMENT/PLAN: 1. End-stage renal disease. Patient is dialysis dependent. She is being dialyzed according to her Monday, Monday, Monday schedule. Because of surgery and nothing by mouth status and NGT with suctioning, we are just maintaining her with dialysis today. 2. Acute incarcerated right inguinal and obturator hernia status post emergent surgery. The patient is clinically getting better. NGT is attached to suctioning. NGT aspirate is being repleted with IV fluids. IV fluid rate has been changed to D5W normal saline at 90 mL/h. 3. Lactic acidosis. It is getting better after the surgery. Latest lactate was 2.1. 4. Microscopic polyangiitis. Continue current dose of prednisone. 5. Hypertension with end-stage renal disease. Continue current dose of amlodipine, losartan, and metoprolol. 6. Atrial fibrillation. Heart rate is controlled. Continue current dose of metoprolol 50 mg twice a day. She is not on anticoagulation. MTDD
[2020-04-27 18:00] VITALS: BP 140/98
[2020-04-27 22:00] VITALS: BP 148/82
--- NOTE | 2020-04-27 22:57 | IPN ---
DATE: 04/27/2020 The patient is status post incarcerated obturator hernia repair and seems to be doing adequately well at this point. Her nasogastric (NG) tube has not been putting out a significant amount. Her vital signs have been relatively good later on today. She did have a very low grade temperature. And from the gastric drainage, she initially had a fair bit earlier on today, but since early this morning, she really has not put out all that much. Reportedly she had a bowel movement, although it is not recorded here, and she states that she has had some flatus. On her physical exam, her abdomen is soft, nondistended. Her incisions are clean, dry, healing without any erythema, drainage or discharge. She has no significant distension at this time, and her NG tube is putting out very minimal. IMPRESSION AND PLAN: The patient seems to be resolving her small bowel obstruction issue, and her bowel, which was in this obturator site, probably had a little bit of edema and took a little while before it started to resolve. But overall we have had some good progress. Will discontinue (DC) the NG tube, but I would like to keep her nothing by mouth today, and tomorrow morning we will start her on some clear liquids just as long as she is making some good progress and then advance her diet as tolerated thereafter. I anticipate she will be able to be discharged home once she is tolerating a regular diet.
[2020-04-28 06:00] VITALS: BP 161/97
[2020-04-28 06:32] LABS: HEMATOCRIT 30.5 % (36.0-47.0); HEMOGLOBIN 9.5 g/dl (12.0-15.5); MEAN CORPUSCULAR HEMOGLOBIN 30.3 pg (27.0-33.0); MEAN CORPUSCULAR HGB CONC 31.1 g/dl (32.0-36.5); MEAN CORPUSCULAR VOLUME 97.1 fl (80.0-96.0); PLATELET COUNT, AUTOMATED 197 10^3/uL (150-450); RED BLOOD COUNT 3.14 10^6/uL (4.00-5.40); WHITE BLOOD COUNT 7.6 10^3/uL (4.0-10.0)
[2020-04-28 07:01] LABS: ALBUMIN 2.5 GM/DL (3.2-5.2); BILIRUBIN,TOTAL 0.2 MG/DL (0.2-1.0); CALCIUM LEVEL 8.1 MG/DL (8.8-10.2); CREATININE FOR GFR 3.27 MG/DL (0.55-1.30); GLOMERULAR FILTRATION RATE 14.5 (>39); POTASSIUM SERUM 3.8 MEQ/L (3.5-5.1); TOTAL PROTEIN 5.1 GM/DL (6.4-8.2)
[2020-04-28] MEDS: predniSONE 5 MG TAB PO SCH (08:02)
[2020-04-28] MEDS: SENOKOT S TAB PO SCH ×2 (08:02→20:23)
[2020-04-28] MEDS: PANTOPRAZOLE 40MG VIAL (C9113 PER 1) IV SCH (08:02)
[2020-04-28] MEDS: HEPARIN SOD (PORCINE) 5000UNITS/ML VIAL (J1644 PER 1000UNITS) SQ SCH ×2 (08:02→20:23)
[2020-04-28] MEDS: CALCITRIOL 0.25 MCG CAP (S0169) PO SCH (08:02)
[2020-04-28] MEDS: LOSARTAN 50MG TABLET PO SCH (08:03)
[2020-04-28] MEDS: amLODIPine 5 MG TAB PO SCH (08:03)
[2020-04-28] MEDS: METOPROLOL TART 50 MG TAB PO SCH ×2 (08:03→20:22)
[2020-04-28] MEDS ORDERED: DARBEPOETIN 100 MCG/0.5 ML *DIALYSIS* SYRINGE (J0882) IV SCH (11:45)
--- NOTE | 2020-04-28 12:05 | IPNPDOC ---
Date Seen The patient was seen on 04/28/20. Progress Note SUBJECTIVE: Bettye was seen and examined by the nephrology service this morning. She had just completed breakfast (mateus desiree, juice, and chicken soup) when we arrived and she reports tolerating it well. While a BM was logged since we saw her yesterday, she states she has not had one, but is continuing to pass flatus. She denies any nausea or vomiting. She reports tolerating her hemodialysis session yesterday well, and was able to walk the floor with assistance of PT and a walker this morning. She endorses feeling somewhat cold this morning, but otherwise denies any fever, night sweats, chest pain, or sob. OBJECTIVE PHYSICAL EXAMINATION: VITAL SIGNS: Please see below. GENERAL APPEARANCE: Elderly, thin female lying upright in bed. No acute distress. Alert and oriented 3. HEENT: Normocephalic, atraumatic. Noninjected, anicteric sclera. [place] and moist mucous membranes. No pharyngeal erythema or exudate. No lymphadenopathy, thyromegaly, or JVD appreciated. RESPIRATORY: Lungs are clear to auscultation bilaterally with no adventitious breath sounds appreciated. Mildly diminished tidal volume. Symmetric chest expansion. Speaking full sentences and breathing room air. CARDIOVASCULAR: Regular rate. Positive S1, S2. 2/6 systolic murmur appreciated best at the right parasternal intercostal space. No JVD. There is a catheter present in her right upper chest. ABDOMEN: Thin abdomen that is soft, nontender and nondistended. Hypoactive bowel sounds throughout. She continues to have bandages over site of surgery from Monday. There does not appear to be surrounding erythema or induration from surgical incision sites. EXTREMITIES: Lower shunt areas are free of edema. Very thin. Extremities within overlying skin. NEUROLOGICAL: Awake, alert and oriented 3. No focal neurologic deficits appreciated. Non-dysarthric speech. PSYCHIATRIC: Mood and affect appear appropriate Skin: Skin is thin, warm, dry and intact. LABORATORY DATA, IMAGING STUDIES, MICROBIOLOGY: Please see below. PROBLEMS: #End-stage renal disease on Monday, Monday, Monday hemodialysis -Patient underwent her regular scheduled Monday hemodialysis session yesterday. She tolerated well. No fluid was taken off due to her dry fluid down state. She was given 500 mL bolus with the dialysis yesterday and it was just for renal clearance purposes. Her IV fluids have been discontinued as she is now advancing her diet and tolerating it well. Her NG tube has been removed. #Acute incarcerated right obturator hernia and right inguinal hernia, status post surgery -Patient underwent surgery 2 days ago for incarcerated obturator and inguinal hernias. Her NG tube has been removed and her IV fluid hydration has been discontinued as she is now tolerating advancement in her diet. She tolerated dialysis well yesterday were no fluid was taken off and it was performed for renal clearance purposes. Gen. surgery continues to follow the patient as well. Lactic acid level came down yesterday. On postop day 1, likely as a result of correction of the incarcerated hernias. #Microscopic polyangiitis -Patient is to continue with her current prednisone dose #Hypertension complicated by by end-stage renal disease -Pressures this morning seemed to be holding the low 160s and patient is asymptomatic. She feels as though her pain is well controlled. Continue with the amlodipine, losartan and metoprolol administration. #History of paroxysmal atrial fibrillation -Patient's rate remains controlled on metoprolol. She is not on any anticoagulation and is postop day 2 from surgery. She denied any chest pain, chest pressure or palpitations. On exam today. Thank you for allowing us to participate in Bettye's care. We will continue to follow her while she is an inpatient. VS, I&O, 24H, [place] Vital Signs/I&O Vital Signs Date Time Temp Pulse Resp B/P (MAP) Pulse Ox O2 Delivery O2 Flow Rate FiO2 04/28/20 08:03 74 162/94 04/28/20 06:00 98.7 16 98 Room Air I&O- Last 24 Hours up to 6 AM 04/28/20 05:59 Intake Total 1040 ml Output Total 670 ml Balance 370 ml Laboratory Data 24H LABS Laboratory Tests 2 04/28/20 06:14: Nucleated Red Blood Cells % (auto) 0.0, Anion Gap 4L, Glomerular Filtration Rate 14.5L, Calcium Level 8.1L, Magnesium Level 2.0, Total Bilirubin 0.2, Aspartate Amino Transf (AST/SGOT) 17, Alanine Aminotransferase (ALT/SGPT) 18, Alkaline Phosphatase 46, Total Protein 5.1L, Albumin 2.5L, Albumin/Globulin Ratio 1.0L CBC/BMP Laboratory Tests 04/28/20 06:14 Microbiology Microbiology 04/26/20 Respiratory Virus Panel (PCR) ([facility]) - Final, Complete GME ATTESTATION GME ATTESTATION My faculty preceptor for this patient encounter was physically present during the encounter and was fully available. All aspects of the patient interview, examination, medical decision making process, and medical care plan development were reviewed and approved by the faculty preceptor. The faculty preceptor is aware and concurs with the plan as stated in the body of this note and will attest to such by his/her cosignature. ATTENDING NOTE ESRD on HD HTN in ESRd Microscopic Polyangitis s/p Rt inguinal and Obturator hernia repair Pt to cont home HD regimen. Cont prednisone dose. OK to discharge from nephrology standpoint. HEDY HERMOSILLO D.O. Apr 28, 2020 12:05 SIMON STARK MD May 03, 2020 11:10
--- NOTE | 2020-04-28 12:52 | IPN ---
DATE: 04/28/2020 The patient is doing quite well today from a general surgery standpoint. She has had some flatus without a bowel movement, but has had no nausea since her nasogastric (NG) tube was removed. Will start her on a clear liquid diet. She says she is very hungry at this time. She has been afebrile. Her ins and outs revealed no vomiting; however, no bowel movements. Abdomen is soft, nontender and nondistended. Dressings are clean and dry. IMPRESSION AND PLAN: The patient seems to be making some good progress at this time. Will start her on a clear liquid diet and advance diet as tolerated. If she is tolerating a regular diet tomorrow, then she can be discharged to home and follow up with Dr. Puente in 1 week.
[2020-04-28 14:00] VITALS: BP 131/83
--- NOTE | 2020-04-28 16:37 | IPNPDOC ---
Text Note Date of Service The patient was seen on 04/28/20. NOTE SUBJECTIVE: Says abdominal pain is much better, tolerating clear liquids. No fever or chills. PHYSICAL EXAMINATION: VITAL SIGNS: Please see below. GENERAL APPEARANCE: cachectic , laying in bed in no distress, awake and alert. HEENT: Normocephalic atraumatic, moist mucous membranes, anicteric eyes. Bilateral temporal wasting. RESPIRATORY: anteriorly clear to auscultation, basal crackles CARDIOVASCULAR: S1, S2 regular , no murmur or gallop ABDOMEN: Soft , tender at the right iliac fossa, good bowel sounds heard. EXTREMITIES: No cyanosis or edema NEUROLOGICAL: No focal neurodeficits. LABORATORY DATA: Please see below. ASSESSMENT/PLAN: The patient is a 79-year-old female with PMH of ESRD, Microscopic Polyangitis with lung involvement, paroxysmal atrial fibrillation, hypertension, anemia of chronic disease, severe protein calorie malnutrition, mild non rheumatic valvular heart disease with Moderate pulmonary hypertension, vit d def, Oa, Osteoporosis presented to emergency room with complaints of nausea, vomiting, abdominal pain and distention, found to have a small bowel obstruction secondary to an incarcerated right obturator hernia on her CT and an inguinal hernia. She underwent laparoscopic robotic-assisted inguinal hernia and right obturator hernia surgery. SBO/ Incarcerated right obturator hernia without strangulation s/p laparoscopic robotic-assisted inguinal hernia and right obturator hernia surgery on 04/26/20 No bowel needed to be excised Management as per surgery ESRD on HD via cvc (MWF) Due to Microscopic polyangitis. Nephro on board. Anemia of chronic disease No iron deficiency receives aranesp Secondary hyperparathyroidism. calcitriol Microscopic polyangiitis with lung involvement. p-ANCA was elevated continue prednisone Severe protein calorie malnutrition BMI of 16.8, low albumin , bitemporal wasting and wasting of intercostal muscles. Hypertension c/w home amlodipine and losartan with hold parameters Metoprolol succinate changed to metoprolol tartrate as succinate cannot be crushed. Mild non rheumatic valvular heart disease with Moderate pulmonary hypertension. has Mils and Mild AR and Mild MR. EF low normal 50% to 55% Vitamin D deficiency c/w home calcitriol Paroxysmal atrial fibrillation not on anticoagulation now in sinus rhythm Impaired mobility/deconditioning During hospital stay last month underwent ARU stay recently Osteoporosis/OA/Vit D def continue home meds when taking po. DVT prophylaxis: Heparin sc VS,Fishbone, I+O VS, Fishbone, I+O Laboratory Tests 04/28/20 06:14 Vital Signs Date Time Temp Pulse Resp B/P (MAP) Pulse Ox O2 Delivery O2 Flow Rate FiO2 04/28/20 14:00 97.7 79 19 131/83 (99) 95 Room Air I&O- Last 24 Hours up to 6 AM 04/28/20 06:00 Intake Total 1040 ml Output Total 670 ml Balance 370 ml SHERI STEARNS MD Apr 28, 2020 16:37
[2020-04-28 22:00] VITALS: BP 160/90
[2020-04-29 06:00] VITALS: BP 160/88
[2020-04-29 07:20] LABS: HEMATOCRIT 31.9 % (36.0-47.0); HEMOGLOBIN 10.3 g/dl (12.0-15.5); MEAN CORPUSCULAR HEMOGLOBIN 30.6 pg (27.0-33.0); MEAN CORPUSCULAR HGB CONC 32.3 g/dl (32.0-36.5); MEAN CORPUSCULAR VOLUME 94.7 fl (80.0-96.0); PLATELET COUNT, AUTOMATED 208 10^3/uL (150-450); RED BLOOD COUNT 3.37 10^6/uL (4.00-5.40); WHITE BLOOD COUNT 7.2 10^3/uL (4.0-10.0)
[2020-04-29] MEDS: HEPARIN SOD (PORCINE) 5000UNITS/ML VIAL (J1644 PER 1000UNITS) SQ SCH ×2 (07:38→20:17)
[2020-04-29] MEDS: CALCITRIOL 0.25 MCG CAP (S0169) PO SCH (07:38)
[2020-04-29] MEDS: SENOKOT S TAB PO SCH ×2 (07:38→20:17)
[2020-04-29] MEDS: predniSONE 5 MG TAB PO SCH (07:38)
[2020-04-29] MEDS: LOSARTAN 50MG TABLET PO SCH (07:41)
[2020-04-29] MEDS: amLODIPine 5 MG TAB PO SCH (07:41)
[2020-04-29] MEDS: PANTOPRAZOLE 40MG VIAL (C9113 PER 1) IV SCH (07:42)
[2020-04-29] MEDS: METOPROLOL TART 50 MG TAB PO SCH ×2 (07:42→20:17)
[2020-04-29 07:52] LABS: ALBUMIN 2.5 GM/DL (3.2-5.2); BILIRUBIN,TOTAL 0.3 MG/DL (0.2-1.0); CALCIUM LEVEL 8.4 MG/DL (8.8-10.2); CREATININE FOR GFR 3.98 MG/DL (0.55-1.30); GLOMERULAR FILTRATION RATE 11.6 (>39); MAGNESIUM LEVEL 1.9 MG/DL (1.8-2.4); POTASSIUM SERUM 3.4 MEQ/L (3.5-5.1); TOTAL PROTEIN 5.6 GM/DL (6.4-8.2)
[2020-04-29 14:00] VITALS: BP 148/80
[2020-04-29 22:00] VITALS: BP 142/88
[2020-04-30 06:00] VITALS: BP 192/94
--- NOTE | 2020-04-30 06:29 | IPN ---
DATE: 04/29/2020 SUBJECTIVE: The patient was seen and examined at the bedside today morning during hemodialysis procedure. She is tolerating the hemodialysis procedure well. She reports abdominal pain is significantly better. She is tolerating the regular diet now. OBJECTIVE: Vital Signs: Temperature is 97.6 degrees Fahrenheit, blood pressure 182/90, pulse is 66, respiratory rate of 18, saturating 96% on room air. Intake and output: There is no urine output recorded. Weight in the bed scale is 43 kg. PHYSICAL EXAMINATION: General: The patient is awake, alert, oriented x3, laying in bed, getting hemodialysis done, in no apparent distress. Head and Neck Exam: Extraocular muscles intact. Pupils equally round and reactive to light. Mucous membranes are moist. Neck is supple. She has a right internal jugular (IJ) tunneled hemodialysis catheter. Cardiovascular: S1, S2. Regular rate. No edema of the bilateral lower extremities. Respiratory: Chest is clear to auscultation bilaterally. Bilateral equal air entry. No rales or rhonchi. Abdomen: Soft. Positive bowel sounds. Mildly tender at the surgical site. Musculoskeletal: No clubbing or cyanosis. Pulses are 2+. PATIENT CARE ASSISTANT: No focal deficit. Power is 5/5 in all extremities. LAB REVIEW: CBC showed a WBC of 7.2, hemoglobin 10.3, platelets of 208. BMP showed sodium 141, potassium 3.4, chloride 109, bicarb 24, BUN 29, creatinine is 3.9, and albumin is 2.5. CURRENT INPATIENT MEDICATIONS: The patient's medications were all reviewed by myself. There is no significant change in the medications today as compared with yesterday. ASSESSMENT/PLAN: 1. End-stage renal disease. The patient is being dialyzed according to her regular schedule, 1 liter of fluid will be removed today. 2. Hypokalemia. The patient is being dialyzed with a 4K bath. Potassium should improve. 3. Microscopic polyangiitis. The patient is on prednisone 15 mg. Continue current dose. It will be tapered down as outpatient. 4. Hypertension. Blood pressure is slightly elevated. Continue current dose of amlodipine, losartan and metoprolol. Blood pressure should get better after fluid removal during dialysis. 6. Atrial fibrillation. Continue current dose of metoprolol. 7. Disposition. The patient is optimized from a nephrology standpoint to be discharged home after dialysis today.
[2020-04-30 06:34] LABS: HEMOGLOBIN 11.3 g/dl (12.0-15.5); MEAN CORPUSCULAR HEMOGLOBIN 30.6 pg (27.0-33.0); MEAN CORPUSCULAR HGB CONC 32.3 g/dl (32.0-36.5); MEAN CORPUSCULAR VOLUME 94.9 fl (80.0-96.0); PLATELET COUNT, AUTOMATED 228 10^3/uL (150-450); RED BLOOD COUNT 3.69 10^6/uL (4.00-5.40); WHITE BLOOD COUNT 8.4 10^3/uL (4.0-10.0)
[2020-04-30 06:39] VITALS: BP 190/100
[2020-04-30] MEDS: amLODIPine 5 MG TAB PO SCH (06:39)
[2020-04-30] MEDS: METOPROLOL TART 50 MG TAB PO SCH (06:39)
[2020-04-30] MEDS: LOSARTAN 50MG TABLET PO SCH (06:39)
[2020-04-30 06:56] LABS: ALBUMIN 2.7 GM/DL (3.2-5.2); BILIRUBIN,TOTAL 0.3 MG/DL (0.2-1.0); CALCIUM LEVEL 8.7 MG/DL (8.8-10.2); CREATININE FOR GFR 3.12 MG/DL (0.55-1.30); GLOMERULAR FILTRATION RATE 15.4 (>39); TOTAL PROTEIN 5.5 GM/DL (6.4-8.2)
[2020-04-30] MEDS: predniSONE 5 MG TAB PO SCH (08:17)
[2020-04-30] MEDS: HEPARIN SOD (PORCINE) 5000UNITS/ML VIAL (J1644 PER 1000UNITS) SQ SCH (08:17)
[2020-04-30] MEDS: SENOKOT S TAB PO SCH ×2 (08:17→08:19)
[2020-04-30] MEDS: CALCITRIOL 0.25 MCG CAP (S0169) PO SCH (08:17)
[2020-04-30] MEDS: PANTOPRAZOLE 40MG VIAL (C9113 PER 1) IV SCH (08:17)
[2020-04-30 08:24] VITALS: BP 165/93
--- NOTE | 2020-05-01 07:08 | IPN ---
DATE: 04/30/2020 SUBJECTIVE: The patient was seen and examined at the bedside today morning. She is afebrile, hemodynamically stable. She was dialyzed yesterday, 1 liter of fluid was removed. The patient reports that she is getting ready to be discharged today. OBJECTIVE: Vital Signs: Temperature is 97.8 degrees Fahrenheit, blood pressure 165/93, pulse 82, respiratory rate of 20, saturating 98% on room air. Intake and output: Urine output recorded as 200 mL, ultrafiltration with hemodialysis was 1 liter. Weight in the bed scale is 45 kg. PHYSICAL EXAMINATION: General: The patient is awake, alert, oriented x3, sitting up in the bed in no apparent distress. Head and Neck Exam: Extraocular muscles intact. Pupils equally round and reactive to light. Mucous membranes are moist. Neck is supple. There is no jugular venous distention (JVD). She has a right IJ tunneled hemodialysis catheter. Cardiovascular: S1, S2. Regular rate. No edema of the bilateral lower extremities. Respiratory: Chest is clear to auscultation bilaterally. Bilateral equal air entry. No rales or rhonchi. Abdomen: Soft, positive bowel sounds. Nontender. Musculoskeletal: No clubbing or cyanosis. Pulses are 2+. [place]: No focal deficit. Power is 5/5 in all extremities. LAB REVIEW: CBC showed a WBC of 8.4, hemoglobin 11.3, platelets of 228. BMP showed sodium 141, potassium is 4, chloride 106, bicarb 27, BUN 28, creatinine 3.1. CURRENT INPATIENT MEDICATIONS: The patient's medications were all reviewed by myself. There is no significant change in the medications today as compared with yesterday. ASSESSMENT/PLAN: 1. End-stage renal disease. The patient was dialyzed according to her regimen yesterday. Next hemodialysis will be done as outpatient as per her regular schedule. 2. Microscopic polyangiitis. The patient continues to be on prednisone 15 mg daily. The rest of the dose tapering will be done as outpatient. 3. Hypertension. Continue current dose of losartan, metoprolol and amlodipine. The rest of the regimen change will be done as outpatient. 4. Atrial fibrillation. Continue current dose of metoprolol. She is not on anticoagulation. 5. Status post right inguinal and obturator hernia surgery. The patient is feeling better. She is tolerating a regular diet. 6. Disposition. The patient is optimized from a nephrology standpoint to be discharged home. She will be followed up as outpatient at dialysis center.
--- NOTE | 2020-05-01 08:41 | IPNPDOC ---
Text Note Date of Service The patient was seen on 04/29/20. NOTE SUBJECTIVE: Says abdominal pain is much better, though still very weak. Going for HD today. No fever or chills. PHYSICAL EXAMINATION: VITAL SIGNS: Please see below. GENERAL APPEARANCE: cachectic , laying in bed in no distress, awake and alert. HEENT: Normocephalic atraumatic, moist mucous membranes, anicteric eyes. Bilateral temporal wasting. RESPIRATORY: anteriorly clear to auscultation, basal crackles CARDIOVASCULAR: S1, S2 regular , no murmur or gallop ABDOMEN: Soft , tender at the right iliac fossa, good bowel sounds heard. EXTREMITIES: No cyanosis or edema NEUROLOGICAL: No focal neurodeficits. LABORATORY DATA: Please see below. ASSESSMENT/PLAN: The patient is a 79-year-old female with PMH of ESRD, Microscopic Polyangitis with lung involvement, paroxysmal atrial fibrillation, hypertension, anemia of chronic disease, severe protein calorie malnutrition, mild non rheumatic valvular heart disease with Moderate pulmonary hypertension, vit d def, Oa, Osteoporosis presented to emergency room with complaints of nausea, vomiting, abdominal pain and distention, found to have a small bowel obstruction secondary to an incarcerated right obturator hernia on her CT and an inguinal hernia. She underwent laparoscopic robotic-assisted inguinal hernia and right obturator hernia surgery. SBO/ Incarcerated right obturator hernia without strangulation s/p laparoscopic robotic-assisted inguinal hernia and right obturator hernia surgery on 04/26/20 No bowel needed to be excised Management as per surgery ESRD on HD via cvc (MWF) Due to Microscopic polyangitis. Nephro on board. Anemia of chronic disease No iron deficiency receives aranesp Secondary hyperparathyroidism. calcitriol Microscopic polyangiitis with lung involvement. p-ANCA was elevated continue prednisone Severe protein calorie malnutrition BMI of 16.8, low albumin , bitemporal wasting and wasting of intercostal muscles. Hypertension c/w home amlodipine and losartan with hold parameters Metoprolol succinate changed to metoprolol tartrate as succinate cannot be crushed. Mild non rheumatic valvular heart disease with Moderate pulmonary hypertension. has [place] and Mild AR and Mild MR. EF low normal 50% to 55% Vitamin D deficiency c/w home calcitriol Paroxysmal atrial fibrillation not on anticoagulation now in sinus rhythm Impaired mobility/deconditioning During hospital stay last month underwent ARU stay recently Osteoporosis/OA/Vit D def continue home meds when taking po. DVT prophylaxis: Heparin sc VS,Fishbone, I+O VS, Fishbone, I+O Laboratory Tests 04/29/20 06:59 Vital Signs Date Time Temp Pulse Resp B/P (MAP) Pulse Ox O2 Delivery O2 Flow Rate FiO2 04/29/20 14:00 98.4 89 18 148/80 (102) 96 Room Air I&O- Last 24 Hours up to 6 AM 04/29/20 06:00 Intake Total 1935 ml Output Total 0 ml Balance 1935 ml SHERI STEARNS MD Apr 29, 2020 15:31
--- NOTE | 2020-05-04 13:51 | RO ---
DATE OF PROCEDURE: 04/26/2020 PREOPERATIVE DIAGNOSIS: Incarcerated right obturator hernia. POSTOPERATIVE DIAGNOSIS: Incarcerated right obturator hernia. PROCEDURE: Reduction of small bowel from incarcerated right obturator hernia, oversewing of two small serosal tears in the small bowel and right incarcerated obturator hernia repair with mesh. SURGEON: Dr. Puente ASSISTANTl: None. ANESTHESIA: General. ESTIMATED BLOOD LOSS (EBL): 5. COMPLICATIONS: None. INDICATIONS FOR PROCEDURE: Patient is a 79-year-old female with an incarcerated right obturator hernia. Recommendation is to proceed with robotic repair. Risks and benefits of the procedure not limited to but including bleeding, infection, hernia formation, hernia recurrence, damage to surrounding structures, need for further surgery were discussed in detail with the patient. Informed consent was obtained and procedure was planned. DESCRIPTION OF PROCEDURE: The patient was brought back to operating room #7. After sufficient sedation, the abdomen was sterilely prepped and draped. Next, a time-out was done to confirm proper patient and proper procedure. Following that an 8 mm incision made in left lower quadrant, Veress needle was inserted and the abdomen was insufflated to 50 mmHg. Veress needle was then removed and an 8 mm Optiview robotic port was used to gain access to the abdomen. Once the abdomen was entered, two more 8 mm ports were placed one supraumbilically in the midline and one on the right upper quadrant. Next, the abdomen was examined. Using just a laparoscopic grasper I was able to reduce the small bowel carefully out of the obturator hernia defect in the right groin. With slow and gentle traction it eventually came out on its own. Just due to the slight traction there were two tiny serosal tears no more than 3-4 mm in size very superficial but once the robot was connected I did oversew them with two interrupted #3-0 Vicryl sutures. Next, the robot was connected to the ports. The groin was further examined. The serosal tears were sutured. The peritoneum was then incised just superior to the inguinal ligament in the right groin. The dissection was carried medially and inferiorly. The entire inguinal canal had some lipoma in it as well as the round ligament. The lipoma and the hernia sac were gently reduced. The peritoneum was dissected free posteriorly away from the round ligament all way down around the pubic symphysis. The obturator hernia was then completely reduced. The hernia sac was dissected free. Dissection was carried inferior and posteriorly there. The entire hernia sac with obturator hernia was turned inside out and pulled all the way back inside of the peritoneum. Dissection was continued posteriorly through the retroperitoneal space. Once the pocket was large enough to fit a large mesh, I clipped the round ligament proximally and distally and removed a section of it to make it easier to fit a mesh in place covering up the entire area without it bunching up. The large 3DMax light mesh was then placed in the preperitoneal space on the right side sutured to the pubic symphysis with one interrupted #2-0 Vicryl suture. The peritoneum was then closed over top of it with a running #2-0 V-Loc and encompassing the entire hernia sac from the obturator defect into the peritoneal closure as well. Once this was all completed, the round ligament portion and the needle was removed from the abdomen, the abdomen was desufflated. Skin incisions were closed with #4-0 Vicryl subcuticular sutures. The abdomen was cleaned and dried. Steri-Strips, 4 x 4 and tape were applied, thus ending procedure.
== END 2020-04-30 11:49 | disposition home health service (06) | DRG 353 ==
LOC: M ED 22:38 → M ED INP 04-26 05:12 → M MSPAV 04-26 09:20
PROVIDERS: ADMIT Surgery; ATTEND Surgery
PROC: 0WUF4JZ Supplement Abdominal Wall with Synthetic Substitute, Percutaneous Endoscopic Approach (ICD-10-PCS; principal; 2020-04-26 06:00)
PROC: 5A1D70Z Performance of Urinary Filtration, Intermittent, Less than 6 Hours Per Day (ICD-10-PCS; 2020-04-27)
DX: K45.0 Other specified abdominal hernia with obstruction, without gangrene (principal); N18.6 End stage renal disease; E43 Unspecified severe protein-calorie malnutrition; E87.2 Acidosis; I12.0 Hypertensive chronic kidney disease with stage 5 chronic kidney disease or end stage renal disease; M31.7 Microscopic polyangiitis; N25.81 Secondary hyperparathyroidism of renal origin; I27.20 Pulmonary hypertension, unspecified; D17.5 Benign lipomatous neoplasm of intra-abdominal organs; M81.0 Age-related osteoporosis without current pathological fracture; I48.0 Paroxysmal atrial fibrillation; E87.6 Hypokalemia; D63.1 Anemia in chronic kidney disease; E55.9 Vitamin D deficiency, unspecified; Z99.2 Dependence on renal dialysis; Z88.0 Allergy status to penicillin; Z88.1 Allergy status to other antibiotic agents; Z88.8 Allergy status to other drugs, medicaments and biological substances; Z79.52 Long term (current) use of systemic steroids; Z79.899 Other long term (current) drug therapy; Z74.09 Other reduced mobility; Z11.59 Encounter for screening for other viral diseases

== ENCOUNTER → 2020-06-11 | Outpatient (CLI) | payer MEDICARE, MEDICAID ==
[~2020-06-11] MED LIST changes: +AMLO1TAB24 PO; -AMLO5TAB6 PO; +CEFD300CAP PO; +FLAG500T PO; +OXYC1TAB23 PO; +PANT40TA29 PO; -PANT40TA3 PO; +PRED50TA PO; +RENV2TAB PO
--- NOTE | 2020-07-17 09:49 | REP ---
BILATERAL UPPER EXTREMITY ARTERIAL AND VENOUS DOPPLER ULTRASOUND 3D MAPPING STUDY HISTORY: End-stage renal disease. FINDINGS: There is a small focus of nonocclusive thrombus in the distal end of the right cephalic vein from previous blood draw one to two weeks ago. There is no evidence of deep venous system thrombosis in either upper extremity. Normal artery Doppler waveforms and velocities are observed. RIGHT UPPER EXTREMTY VENOUS DIAMETER CHART: BASILIC CEPHALIC Upper humerus 3.7 mm 2.6 mm Lower humerus 4.4 mm 2.2 mm Upper forearm 4.4 mm 1.6 mm Lower forearm 2.3 mm 1.8 mm Median cubital 2.6 mm LEFT UPPER EXTREMITY VENOUS DIAMETER CHART: BASILIC CEPHALIC Upper humerus 4.6 mm 1.3 mm Lower humerus 3.4 mm 1.6 mm Upper forearm 2.8 mm 1.1 mm Lower forearm 2.6 mm 1.2 mm Median cubital 1.0 mm RIGHT UPPER EXTREMITY ARTERIAL DOPPLER VELOCITY AND DIAMETER CHART: Axillary artery 54 cm/s, 6.3 mm Proximal brachial 72 cm/s, 4.6 mm Distal brachial 53 cm/s, 4.6 mm Proximal radial 46 cm/s, 2.8 mm Proximal ulnar 48 cm/s, 3.7 mm Axillary artery 43 cm/s, 5.4 mm Proximal brachial 79 cm/s, 4.0 mm Distal brachial 74 cm/s, 3.3 mm Proximal radial 63 cm/s, 2.3 mm Proximal ulnar 49 cm/s, 3.4 mm MTDD
== END ==
LOC: M RAD 15:39
PROVIDERS: ATTEND Physician Assistant
DX: Z01.818 Encounter for other preprocedural examination (principal); N18.6 End stage renal disease; Z99.2 Dependence on renal dialysis

== ENCOUNTER 2020-07-07 08:45 | Inpatient (IN) | payer MEDICARE, MEDICAID ==
[~2020-07-07] VITALS: Ht 162.6 cm; Wt 43.6 kg
[2020-07-07] VITALS (14 sets, daily range): BP systolic 113–178; BP diastolic 78–104
[~2020-07-07 08:45] MED LIST changes: -CEFD300CAP PO; -FLAG500T PO; -OXYC1TAB23 PO; -PRED50TA PO; -RENV2TAB PO
[2020-07-07] MEDS ORDERED: predniSONE 20 MG TAB PO SCH (09:00)
[2020-07-07] MEDS ORDERED: RENV2TAB PO (10:14)
[2020-07-07] MEDS ORDERED: FERR32TA PO (10:14)
[2020-07-07 10:23] LABS: BASO # 0.1 10^3/uL (0.0-0.2); BASO % 0.9 % (0.0-1.0); EOS # 0.2 10^3/uL (0.0-0.5); EOS % 2.3 % (0.0-3.0); HEMATOCRIT 35.5 % (36.0-47.0); HEMOGLOBIN 11.6 g/dl (12.0-15.5); LYMPH # 1.2 10^3/uL (1.5-5.0); LYMPH % 11.4 % (24.0-44.0); MEAN CORPUSCULAR HEMOGLOBIN 30.4 pg (27.0-33.0); MEAN CORPUSCULAR HGB CONC 32.7 g/dl (32.0-36.5); MEAN CORPUSCULAR VOLUME 92.9 fl (80.0-96.0); MONO # 0.8 10^3/uL (0.0-0.8); MONO % 7.1 % (0.0-5.0); NEUTROPHILS # 8.3 10^3/uL (1.5-8.5); NEUTROPHILS % 77.6 % (36.0-66.0); PLATELET COUNT, AUTOMATED 217 10^3/uL (150-450); RED BLOOD COUNT 3.82 10^6/uL (4.00-5.40); WHITE BLOOD COUNT 10.7 10^3/uL (4.0-10.0)
[2020-07-07 10:34] LABS: INR 0.91; PARTIAL THROMBOPLASTIN TIME 26.4 SECONDS (25.0-38.4); PROTHROMBIN TIME 12.4 SECONDS (11.8-14.0)
[2020-07-07] MEDS ORDERED: METOPROLOL TART 50 MG TAB As Ordered ONE (10:50)
[2020-07-07] MEDS ORDERED: amLODIPine 5 MG TAB As Ordered ONE (10:51)
--- NOTE | 2020-07-07 10:51 | REPVR ---
PROCEDURE INFORMATION: Exam: XR Chest, 1 View Exam date and time: 07/07/2020 10:16 AM Age: 79 years old Clinical indication: Shortness of breath; Additional info: Hemoptysis TECHNIQUE: Imaging protocol: XR of the chest Views: 1 view. COMPARISON: CR PORTABLE CHEST X-RAY 04/26/2020 3:21 AM FINDINGS: Tubes, catheters and devices: Tunneled dialysis catheter is stable in position. Lungs: There has been interval development of poorly defined opacity within the right perihilar region and subtle ground-glass opacity at the right base. Mild left basilar atelectasis. Pleural space: No significant pleural effusions. No pneumothorax. Heart/Mediastinum: Cardiac size is normal and mediastinal contour stable with a tortuous and ectatic thoracic aorta. Pulmonary vasculature is unremarkable. Bones/joints: Bones are stable. Osteopenia. Degenerative changes. IMPRESSION: Interval development of poorly defined opacity within the right perihilar region and subtle ground-glass opacity at the right base. This is most consistent with pneumonia and/or pulmonary hemorrhage. An underlying right hilar mass cannot be excluded. Recommend follow-up chest radiographs and/or CT. Electronically signed by: Driss Neal On 07/07/2020 10:51:25 AM
[2020-07-07 10:58] LABS: CALCIUM LEVEL 8.4 MG/DL (8.8-10.2); CREATININE FOR GFR 4.57 MG/DL (0.55-1.30); GLOMERULAR FILTRATION RATE 9.9 (>39); POTASSIUM SERUM 5.5 MEQ/L (3.5-5.1)
[2020-07-07] MEDS ORDERED: amLODIPine 5 MG TAB PO ONE (11:00)
[2020-07-07] MEDS ORDERED: METOPROLOL TARTRATE 100 MG TAB PO ONE (11:00)
--- NOTE | 2020-07-07 12:05 | REPVR ---
PROCEDURE INFORMATION: Exam: CT Chest Without Contrast Exam date and time: 07/07/2020 11:20 AM Age: 79 years old Clinical indication: Pain; Other: Right perihilar infiltrate, ? mass TECHNIQUE: Imaging protocol: Computed tomography of the chest without contrast. 3D rendering (Not supervised by radiologist): MIP and/or 3D reconstructed images were created by the technologist. Radiation optimization: All CT scans at this facility use at least one of these dose optimization techniques: automated exposure control; mA and/or kV adjustment per patient size (includes targeted exams where dose is matched to clinical indication); or iterative reconstruction. COMPARISON: CT Chest without contrast 01/08/2020 11:28 PM FINDINGS: Tubes, catheters and devices: There is a new large bore central venous catheter possibly for dialysis with its tip in the right atrium. Lungs: The lungs remain hyperinflated. Pulmonary infiltrates have significantly decreased and have resolved in the left upper lobe. Left lower lobe demonstrates minimal infiltrate possibly residual atelectasis. Infiltrate in the right upper lobe is almost resolved with infiltrate in the right lower lobe again identified very patchy involving the medial portion of the right lower lobe and this appears increased. There is increased density noted within the bronchus intermedius extending into the lower lobe and minimally the middle lobe bronchi which could be secretions. This was not present on the previous exam. Pleural space: The pleural effusions have resolved. Heart: There may be a trace pericardial effusion. Aorta: The ascending aorta is ectatic at 35 mm. Lymph nodes: Unremarkable. No enlarged lymph nodes. Bones/joints: Scoliotic changes are again seen in the spine. Soft tissues: Unremarkable. Other findings: There is a questionable nodule or mass involving the isthmus measuring 14 x 15 mm stable. IMPRESSION: 1. Marked improvement of the lungs with the exception of increasing and solid a ofwler involving medial portion of the right lower lobe. Pleural effusions have resolved. May be a residual small pericardial effusion. 2. Density within the bronchus intermedius extending inferiorly to the middle and right lower lobe bronchi. Consider direct visualization if clinically indicated. Electronically signed by: Ahmet Clarke On 07/07/2020 12:05:33 PM
[2020-07-07] MEDS: predniSONE 20 MG TAB PO SCH (12:52)
--- NOTE | 2020-07-07 13:02 | CR.PDOC ---
General Date of Consultation: Jul 07, [address] Jean. REASON FOR CONSULTATION/CHIEF COMPLAINT: Permcath not functioning. HISTORY OF PRESENT ILLNESS: The pt is a 79 yo female with ESRD on HD as per Nephrology unable to dialyze since last Monday related to malfunction of her PermCath. ALLERGIES: Please see below. HOME MEDICATIONS: Please see below. 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 PHYSICAL EXAMINATION: VITAL SIGNS: Please see below. GENERAL APPEARANCE: NAD RESPIRATORY: CTA CARDIOVASCULAR: RRR ABDOMEN: soft, NT NEUROLOGICAL: A/O x 3 ASSESSMENT/PLAN: 1. ESRD on HD. Patient's PermCath has been malfunctioning since last Monday. Tentative plan is for PermCath later this afternoon as per Dr. Jean. The procedure, risks, benefits and alternatives are reviewed with the patient, informed consent is obtained and placed in the chart. Vital Signs/I&O Vital Signs Date Time Temp Pulse Resp B/P (MAP) Pulse Ox O2 Delivery O2 Flow Rate FiO2 07/07/20 11:32 78 18 184/98 (126) 98 Room Air 07/07/20 09:01 97.9 Laboratory Data Labs 24H Laboratory Tests 2 07/07/20 09:43: Immature Granulocyte % (Auto) 0.7, Neutrophils (%) (Auto) 77.6H, Lymphocytes (%) (Auto) 11.4L, Monocytes (%) (Auto) 7.1H, Eosinophils (%) (Auto) 2.3, Basophils (%) (Auto) 0.9, Neutrophils # (Auto) 8.3, Lymphocytes # (Auto) 1.2L, Monocytes # (Auto) 0.8, Eosinophils # (Auto) 0.2, Basophils # (Auto) 0.1, Nucleated Red Blood Cells % (auto) 0.0, Prothrombin Time 12.4, Prothromb Time International Ratio 0.91, Activated Partial Thromboplast Time 26.4, Anion Gap 7L, Glomerular Filtration Rate 9.9L, Calcium Level 8.4L CBC/BMP Laboratory Tests 07/07/20 09:43 Allergies Coded Allergies: Penicillins (Verified Allergy, Intermediate, RASH, 04/26/20) clarithromycin (Verified Allergy, Intermediate, rash, 01/08/20) isotretinoin (Verified Allergy, Mild, 02/28/20) cortisone (Verified Allergy, Unknown, 01/08/20) lisinopril (Verified Allergy, Unknown, 01/08/20) warfarin (Verified Adverse Reaction, Intermediate, HALLUCINAIONS, 07/07/20) Home Medications Scheduled Amlodipine Besylate (Amlodipine Besylate) 5 Mg Tablet, 5 MG PO DAILY, (Reported) Calcitriol (Calcitriol) 0.25 Mcg Capsule, 0.25 MCG PO DAILY, (Reported) Ferrous Gluconate (Ferrous Gluconate) 324 Mg Tablet, 324 MG PO DAILY, (Reported) Folic Acid/Vit B Complex and C (Candice-Leslie Tablet) 0.8 Mg Tablet, 1 TAB PO DAILY, (Reported) Furosemide (Furosemide) 20 Mg Tablet, 20 MG PO DAILY, (Reported) Losartan Potassium (Losartan Potassium) 50 Mg Tablet, 50 MG PO QHS, (Reported) Metoprolol Succinate (Metoprolol Succinate) 100 Mg Tab.er.24h, 100 MG PO DAILY, (Reported) Pantoprazole Sodium (Pantoprazole Sodium) 40 Mg Tablet.dr, 40 MG PO DAILY, (Reported) Prednisone (Prednisone) 5 Mg Tablet, 5 MG PO DAILY, (Reported) Sevelamer Carbonate (Renvela) 800 Mg Tablet, 800 MG PO DAILY, (Reported) Scheduled PRN Acetaminophen (Acetaminophen) 500 Mg Tablet, 500 MG PO BID PRN for PAIN, (Reported) Nitroglycerin (Nitrostat) 0.4 Mg Tab.subl, 0.4 MG SL NITRO PRN for CHEST PAIN, (Reported) Lien Macedo Jul 07, 2020 13:02
[2020-07-07] MEDS ORDERED: LABETALOL 100MG/20ML VIAL IV STA (13:12)
[2020-07-07] MEDS ORDERED: SOD POLYSTYRENE SULFONATE SUSP 15 GM/60 ML UD PO ONE (14:00)
[2020-07-07] MEDS ORDERED: CALCIUM GLUCONATE 1,000 MG in D5W MINI-BAG PLUS 100 ML IV ONE (14:00)
[2020-07-07] MEDS ORDERED: LIDOCAINE W/EPINEPHRINE 1% 20ML VIAL As Ordered ONE (14:50)
[2020-07-07] MEDS ORDERED: fentaNYL 100 MCG/2 ML INJECTION (J3010) As Ordered ONE (14:51)
[2020-07-07] MEDS ORDERED: MIDAZOLAM INJ 2MG/2ML VIAL (J2250 PER 1MG) As Ordered ONE (14:51)
[2020-07-07] MEDS ORDERED: METOPROLOL 5 MG/5 ML VIAL IV STA (14:52)
[2020-07-07] MEDS ORDERED: hydrALAZINE 20MG/ML 1ML VIAL (J0360 PER 20MG) IV STA (14:53)
[2020-07-07] MEDS ORDERED: cloNIDine 0.1 MG TAB PO ONE (15:00)
[2020-07-07] MEDS ORDERED: METOPROLOL 5 MG/5 ML VIAL As Ordered ONE (15:01)
[2020-07-07] MEDS ORDERED: VANCOMYCIN 500MG/10ML VIAL As Ordered ONE (15:47)
[2020-07-07] MEDS ORDERED: hydrALAZINE 20MG/ML 1ML VIAL (J0360 PER 20MG) As Ordered ONE (16:02)
--- NOTE | 2020-07-07 18:47 | ROOPDOC ---
[facility] Report Of Operation Report of Operation DATE OF PROCEDURE: 07/07/20 PREPROCEDURE DIAGNOSES: End-stage renal disease with PermCath malfunction POSTPROCEDURE DIAGNOSES: Same PROCEDURE: 1. Removal right IJ PermCath, tunneled 2. Placement of right IJ PermCath, tunneled SURGEON: Corona Jean MD ANESTHESIA: Local anesthesia 18 mL lidocaine with epinephrine. Moderate intravenous conscious sedation was supervised by Dr. Jean. The patient was independently monitored by registered nurse assigned to the Department of radiology using automated blood pressure, EKG, and pulse oximetry. The detailed sedation record is permanently stored in the hospital information system. The following is a brief sedation record: Start time 16:21, stop time 16:49, Versed 1 mg IV, fentanyl 50 g IV. INDICATION FOR PROCEDURE: This is a very pleasant 79-year-old patient with end- stage renal disease currently dialyzing with a right IJ PermCath. The nurses at dialysis last Monday noted that there was a break in the catheter external and it was not able to be used for dialysis. We discussed the risks benefits and alternatives to removal of the defective right IJ PermCath and placement of a new right IJ PermCath. The patient is agreeable to proceed. Informed consent was obtained. INTERPRETATION: The PermCath is in good position with no kinks in the catheter, the tip freely mobile and the right atrial junction, no pneumothorax. Okay to use the catheter for dialysis. REPORT OF OPERATION: The patient was brought the into graphic suite in stable condition. Her right neck and chest including the PermCath were prepped and draped in a sterile fashion. Antibiotics were administered without complication. A timeout was performed. Sedation was administered without complication. The arterial side of the PermCath was intact and was flushed with heparinized saline. We anesthetized the skin and subcutaneous tissue over the PermCath near the jugular access site. We also anesthetize the skin and subcutaneous tissue lateral to this over the clavicle down to the right chest lateral to the existing PermCath for a new tunnel site. We then used blunt dissection to loosen the PermCath from the subcutaneous tissue until the cough was loose within the tissue. We then again flushed the arterial port and placed a tuohy ryan at the end of the arterial port and through this access we placed an O35 Glidewire. We introduce this all the way into the SVC and IVC under fluoroscopic guidance. We then carefully removed the defective PermCath over the wire after making a small cut down at the jugular access site. We then secured the wire at the jugular access site with a clamp and completely removed the catheter. We then were able to back the wire from the original right chest access site out until it was freely within the jugular access site. Then over the wire we were able to place the peel-away sheath. We then removed the wire and the inner cannula. A small incision was made on the lateral right chest and a new PermCath was tunneled from the right chest over the clavicle to the jugular access site. We then placed the tips of the catheter through the peel-away sheath into the central system. We removed the peel-away sheath and both ports minnie back and flushed easily. They were heparin locked. Final images show the catheter to be in good position with no kinks in the catheter, the tip freely mobile at the SVC right atrial junction, no pneumothorax. We irrigated the jugular access site and the deep tissues were approximated with interrupted Monocryl suture, and the deep dermal layer was closed with interrupted Monocryl suture. The skin was sealed with Dermabond. We then cleaned the old PermCath exit site and placed a 2 x 2 and a Band-Aid. We then secured the catheter to the chest wall with 2 Prolene sutures, and closed the exit site on the right chest with 2 Prolene sutures. Good hemostasis was noted. We then placed sterile dressings over the catheter. The patient was then taken recovery in stable condition. She tolerated the procedure well. ESTIMATED BLOOD LOSS: Approximately 5 mL. COMPLICATIONS: None. PLAN: Okay to use PermCath for dialysis. The patient is scheduled for her fistula creation in the near future. We appreciate the opportunity to participate in the care of this patient. CORONA JEAN MD Jul 07, 2020 18:47
--- NOTE | 2020-07-07 20:33 | ECGEPIP ---
[facility] - ED Test Date: 2020-07-07 Pat Name: CARON CHOI Department: Room: - Gender: Female [employer]: [facility] : 1940 Requested By: Ryan Goff Order Number: [id number] Reading MD: Sil Moreland Measurements Intervals Hunter Rate: 81 P: 75 OK: 157 QRS: 43 QRSD: 90 T: 56 QT: 370 QTc: 431 Interpretive Statements SINUS RHYTHM NONSPECIFIC T-WAVE ABNORMALITY DECREASED RATE 02/28/20 Electronically Signed on 07-07-2020 20:33:29 EDT by Sil Moreland
[2020-07-07] MEDS: hydrALAZINE 20MG/ML 1ML VIAL (J0360 PER 20MG) IV PRN (21:10)
[2020-07-07] MEDS: LOSARTAN 50MG TABLET PO SCH (21:36)
[2020-07-08] VITALS (27 sets, daily range): BP systolic 119–186; BP diastolic 66–105
[2020-07-08] MEDS: ACETAMINOPHEN TAB 650MG DOSE (2X325MG) PO PRN ×2 (00:11→07:42)
[2020-07-08] MEDS: hydrALAZINE 20MG/ML 1ML VIAL (J0360 PER 20MG) IV PRN (02:18)
[2020-07-08 06:14] LABS: HEMOGLOBIN 11.1 g/dl (12.0-15.5); MEAN CORPUSCULAR HEMOGLOBIN 29.5 pg (27.0-33.0); MEAN CORPUSCULAR HGB CONC 32.6 g/dl (32.0-36.5); MEAN CORPUSCULAR VOLUME 90.4 fl (80.0-96.0); PLATELET COUNT, AUTOMATED 166 10^3/uL (150-450); RED BLOOD COUNT 3.76 10^6/uL (4.00-5.40); WHITE BLOOD COUNT 9.9 10^3/uL (4.0-10.0)
[2020-07-08 06:34] LABS: CREATININE FOR GFR 2.59 MG/DL (0.55-1.30); POTASSIUM SERUM 4.4 MEQ/L (3.5-5.1)
--- NOTE | 2020-07-08 07:09 | HPE ---
DATE OF ADMISSION: 07/07/2020 CHIEF COMPLAINT: Hemoptysis, epistaxis. HISTORY OF PRESENT ILLNESS: A 79-year-old female with a history of end stage renal disease, on hemodialysis Monday, Monday, Monday, granulomatosis with polyangiitis with pulmonary renal syndrome, secondary microscopic polyangiitis, chronic hypertension, paroxysmal atrial fibrillation, not on anticoagulation, anemia of chronic disease, and vitamin D deficiency, was in her usual state of health until this morning, when she noticed a "big blob of blood" coming out of her nose. When she tried to clean it, she also had episodes of hemoptysis, about a quarter size clot. No shortness of breath, palpitations, lightheadedness, dizziness, or fall. No fever or chills. Patient had felt that it was slightly hard to breathe and was using her stomach to breathe when this was coming out of her nose and her throat. Patient thought that this could have been because she was in the rain yesterday. She had taken some Tylenol this morning but no nonsteroidal anti-inflammatories. Denies aspirin, ibuprofen, Naprosyn, or any other nonsteroidal anti-inflammatory drug (NSAID) use. In the emergency room, she was noted to have uncontrolled hypertension with blood pressure of 205/98 but arrived with 139/92. She had no recurrent episodes of epistaxis. Hemoglobin remained stable at 11 and 35. She was hyperkalemic, potassium of 5.5 and given calcium gluconate. Awaiting port placement for dialysis. Pulmonary has been made aware. She has been kept nothing by mouth for possible bronchoscopy. Patient without denies weight gain or weight loss, fever, chills. Denies nausea, vomiting, abdominal pain. No diarrhea. Denies upper or lower extremity weakness, dysuria, urgency, frequency, chest pain, pressure, or tightness. All other systems otherwise negative. A 12-point system obtained. MEDICAL HISTORY: 1. 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 2. End stage renal disease, on dialysis Monday, Monday, Monday. 3. Granulomatosis with polyangiitis. 4. Hypertension. 5. Paroxysmal atrial fibrillation, not on anticoagulation. 6. Vitamin D deficiency. 7. Anemia of chronic disease. PAST SURGICAL HISTORY: Perm-A-Cath placement. ALLERGIES: PENICILLIN, CLARITHROMYCIN, CORTISONE, ISOTRETINOIN, LISINOPRIL, and WARFARIN. HOME MEDICATIONS: - acetaminophen 500 twice a day as needed - nitroglycerin 0.4 as needed - prednisone 5 daily - folic acid - vitamin B and C complex 0.8 mg daily - Norvasc 5 daily - calcitriol 0.25 mcg daily - ferrous gluconate 324 daily - Lasix 20 daily - losartan 50 every night - metoprolol 100 daily - Protonix 40 daily - Renvela 800 daily SOCIAL HISTORY: Lives alone. , Two grown sons. Denies alcohol, tobacco, or recreational drug use. REVIEW OF SYSTEMS: Per history of present illness (HPI). A 12-point system otherwise negative. ASSESSMENT AND PLAN: This is a 79-year-old female with a history of small-bowel obstruction, incarcerated right obturator hernia without strangulation, end stage renal disease, on dialysis Monday, Monday, Monday, anemia of chronic disease, secondary hyperparathyroidism, microscopic polyangiitis with lung involvement, pulmonary renal syndrome, severe protein-calorie malnutrition, body mass index (BMI) of 17.2, hypertension, mild non-rheumatic valvular disease with moderate pulmonary hypertension, vitamin D deficiency, paroxysmal atrial fibrillation, not on anticoagulation, deconditioning, osteoporosis. osteoarthritis, who was in her usual state of health until she presented this morning with epistaxis and hemoptysis. Patient is admitted as an inpatient for two midnights for the following acute medical issues. 1. Hemoptysis with a history of microscopic polyangiitis with pulmonary renal syndrome. Avian Keeper, Dr. Armen Sauer, has been consulted. Patient has been placed on prednisone 40 mg daily by nephrology. Keep nothing by mouth status. Bronchoscopy with biopsy if needed. Chest x-ray shows a right lower lobe infiltrate. CT chest shows pleural effusion. May have resolved small pericardial effusion. Marked improvement of the lungs with the exception of increased density in the bronchus intermedius, extending into the lower lobe and minimally in the middle lobe bronchi, which could be secretions. Consider direct visualization if clinically indicated. Patient is not hypoxic, saturating well at 94% on room air. Will keep nothing by mouth for now. 2. Perm-A-Cath malfunction. Patient is unable to get dialysis. Vascular surgeon, Dr. Melendez, has been consulted for dialysis access. Dr. Hayden, counseling services director, has been consulted and will go to dialysis once the access has been provided. 3. End stage renal disease, on maintenance dialysis Monday, Monday, Monday with history of pulmonary renal syndrome secondary to granulomatosis with polyangiitis and microscopic polyangiitis. Nephrology has been consulted. Patient has been placed on prednisone 40 mg daily. Dialysis needs to be managed by counseling services director, Dr. Hayden. 4. Hypertensive urgency, systolic pressure of 204/100 despite restarting patient's Norvasc and metoprolol. Patient will be given labetalol intravenous (IV) and Norvasc. MTDD
[2020-07-08] MEDS ORDERED: LABETALOL 100MG/20ML VIAL IV ONE ×2 (07:15→10:45)
[2020-07-08] MEDS ORDERED: METOCLOPRAMIDE INJ 10MG/2ML VIAL (J2765 PER 1) IV ONE (07:15)
[2020-07-08] MEDS: predniSONE 20 MG TAB PO SCH (07:39)
[2020-07-08] MEDS: CALCITRIOL 0.25 MCG CAP (S0169) PO SCH (07:39)
[2020-07-08] MEDS: PANTOPRAZOLE 40MG TAB (PROTONIX) PO SCH (07:40)
[2020-07-08] MEDS: amLODIPine 5 MG TAB PO SCH (07:40)
[2020-07-08] MEDS: FERROUS GLUCONATE 324 MG TAB PO SCH (07:40)
[2020-07-08] MEDS: METOPROLOL SUCC (TopROL XL) 100MG *XL* TAB PO SCH (07:41)
[2020-07-08] MEDS: (RENVELA) SEVELAMER **CARBONate** 800 MG TAB PO SCH (07:41)
[2020-07-08] MEDS: FUROSEMIDE 20 MG TAB PO SCH (07:41)
--- NOTE | 2020-07-08 07:44 | ER ---
DATE OF CONSULTATION: 07/07/2020 REQUESTING PHYSICIAN: Dr. Ryan Garcia in the Emergency Room. REASON FOR CONSULTATION: Management of end-stage renal disease and hemoptysis in this patient who has missed dialysis for almost a week. CHIEF COMPLAINT: Patient presented to the Emergency Room today with hemoptysis. HISTORY OF PRESENT ILLNESS: Bettye Ocampo is a 79-year-old female with a past medical history of end-stage renal disease on hemodialysis via a right IJ tunneled hemodialysis catheter, history of microscopic polyangiitis, chronically on low dose steroids, history of hypertension and multiple other comorbidities as mentioned below. Her last dialysis was six days ago, last Monday, and after that her catheter stopped working. Patient was sent to vascular surgery for placement of the catheter and patient was scheduled to have a catheter placed, however before she could get her catheter, she started having hemoptysis and she presented to the Emergency Room with coughing up blood and she was also found to be hypertensive with systolic blood pressures in 190s to 200s. Nephrology service was called for further help in the management of this patient. I saw and evaluated the patient today morning at the bedside in the Emergency Room. Patient is awake and alert. She is slightly hypertensive, otherwise in no apparent distress. She is no longer having hemoptysis at this time. I have discussed with vascular surgery as well, and they will try to place the tunneled catheter today, so that we can dialyze the patient. PAST MEDICAL HISTORY: Patient has a past medical history of end-stage renal disease secondary to microscopic polyangiitis; currently getting dialysis Monday, Monday and Monday, history of microscopic polyangiitis with lung involvement requiring high dose steroids in the past, hypertension secondary to end-stage renal disease, paroxysmal atrial fibrillation; not on anticoagulation, anemia and end-stage renal disease and secondary hyperparathyroidism. PAST SURGICAL HISTORY: Status post tunneled dialysis catheter, history of renal biopsy in the past. ALLERGIES: She is allergic to Macrolides and penicillins and Cortisone, Isotretinoin, Lisinopril, Warfarin. FAMILY HISTORY: No significant family history of end-stage renal disease requiring hemodialysis. SOCIAL HISTORY: Patient lives at home. She denies any smoking, illicit drug abuse or alcohol abuse. REVIEW OF SYSTEMS: CONSTITUTIONAL: She denies any fevers or chills. EYES: She denies any blurry vision or double vision. CARDIOVASCULAR: Denies any chest pain or palpitations. RESPIRATORY: She reports hemoptysis. GI: She denies any nausea or vomiting. GENITOURINARY: She reports decreased urine output. MUSCULOSKELETAL: She denies any muscle aches and pains. SKIN: She denies any rashes or ulcers. ENDOCRINE: She reports secondary hyperparathyroidism. HEMATOLOGIC/ONCOLOGIC: She reports hemoptysis. All other review of systems is negative. PHYSICAL EXAMINATION: GENERAL: Patient is awake, alert, and oriented x3, laying in bed. VITAL SIGNS: Temperature 98 degrees Fahrenheit, blood pressure 184/98, pulse 78, respiratory rate 18, saturating 98% on room air. HEAD AND NECK: Extraocular muscles intact. Pupils equally round and reactive to light. Mucous membranes are moist. Neck is supple. She has significantly elevated JVD. She has a right IJ tunneled hemodialysis catheter. CARDIOVASCULAR: S1, S2. Regular rate. 1+ edema of the bilateral lower extremities. RESPIRATORY: Mildly decreased breath sounds at the bases. Otherwise negative rales or rhonchi. ABDOMEN: Soft, positive bowel sounds, nontender. No organomegaly. GENITOURINARY: Bladder is not palpable. MUSCULOSKELETAL: No clubbing or cyanosis. Pulses are 2+. [employer]: No focal deficit. Power is 5/5 in all extremities. LABORATORY REVIEW: CBC showed WBC 10.7, hemoglobin 11.6, platelets 217,000. BMP showed sodium 142, potassium 5.5, chloride 112, bicarb 23, BUN 69, creatinine 4.5, calcium 8.4. IMAGING STUDIES: A chest x-ray was done today morning, which showed development of poorly defined opacity within the right perihilar region and subtle ground- glass opacity in the right base. This is consistent with pneumonia or pulmonary hemorrhage, an underlying right hilar mass cannot be excluded. HOME MEDICATIONS: Patient's home medications include: 1. Tylenol p.r.n. 2. Amlodipine 5 mg daily. 3. Calcitriol 0.25 mcg p.o. daily. 4. Iron tablet daily. 5. Candice-Leslie. 6. Lasix 20 mg p.o. daily. 7. Losartan 50 mg q.h.s. 8. Metoprolol 100 mg p.o. daily. 9. Nitroglycerin p.r.n. 10. Protonix 40 mg p.o. daily. 11. Prednisone 5 mg daily. 12. Renvela 800 mg once a day with lunch. ASSESSMENT AND PLAN: 1. End-stage renal disease dependent on hemodialysis: Patient missed hemodialysis for almost a week because of malfunctioning of the right IJ tunneled dialysis catheter. I have discussed with vascular surgery, they will try to fit her into the schedule for placement of a new catheter, so we can dialyze her in the evening. 2. Hypertensive urgency: It is secondary to missing dialysis and most likely noncompliance with home medications. Restart the home medications including Amlodipine, Metoprolol and Losartan. Optimization of volume status would also help improve her blood pressure. 3. Chronic combined systolic and diastolic congestive heart failure: Patient has a low normal LVEF around 50% on the latest echo done in December and she has diastolic dysfunction as well. Continue current dose of Lasix and she will get fluid removal at least 2 to 2.5 kg during dialysis today. 4. Atrial fibrillation: Heart rate is controlled with Metoprolol. Not a candidate for anticoagulation because of hemoptysis. 5. Hyperkalemia: It is secondary to missing dialysis. Potassium should improve after dialysis. 6. Anemia and end-stage renal disease: Hemoglobin is stable at 11.6. No need of KAREN administration at this time. 7. Secondary hyperparathyroidism: Continue current dose of Calcitriol 0.25 mcg p.o. daily. 8. Chronic kidney disease/mineral bone disease: Continue current dose of Renvela with meals. 9. Microscopic polyangiitis and hemoptysis: Patient is supposed to be on prednisone 5 mg daily. I am not sure if she is compliant with her medications because she has history of noncompliance and she lives alone. I am going to start her on higher dose of prednisone and it will be tapered down. The infiltrate seen on the chest x-ray is most likely because of microscopic polyangiitis with lung involvement. TOTAL TIME: Total critical care time spent in the management of this patient today morning in the Emergency Room was 1 hour and 30 minutes. MTDD
[2020-07-08] MEDS ORDERED: ACETAMINOPHEN *IV* 1,000 MG in IV 1 EA IV ONE (09:00)
--- NOTE | 2020-07-08 10:50 | CR ---
CRITICAL CARE CONSULTATION NOTE: DATE: 07/07/2020 REASON FOR CONSULTATION: Hemoptysis. HISTORY OF PRESENT ILLNESS: Bettye Ocampo is a 79-year-old female with known microscopic polyangiitis presenting with hemoptysis. She states she woke up in the morning and felt congestion in her right naris and states she blew out a large clot. This was followed by epistaxis. She did notice when she laid back the epistaxis stopped so she was lying down. She has had no further hemoptysis since she presented to the emergency room. She states this has never happened to her before. Her blood pressure is quite elevated today with a systolic blood pressure of 184. She admits to having salt indiscretions yesterday. She is wondering if eating the salty olives and peppercinis from yesterday provoked her nose bleed. She has no chest congestion and denies any fever. She denies any blood in stool currently. She does have a history of having blood in stool from microscopic polyangiitis. She was recently hospitalized for a small bowel obstruction with right obturator hernia and strangulation with repair and has been recovering fairly well from this. She is actually due to have a vascular procedure today. Overall today she states she feels well, and she has no headache or change in vision. She denies any pleurisy. She has no increase in shortness of breath. No increase in her lower extremity edema and denies any calf pain. PAST MEDICAL HISTORY: * Vitamin D deficiency. * Osteoarthritis. * Microscopic polyangiitis. * Recent small bowel obstruction with right obturator hernia and strangulation status post repair. * End-stage renal disease, Monday, Monday, and Monday. * Anemia of chronic disease. * Secondary hyperparathyroidism. * Protein malnourishment. * History of severe hypertension. * History of probably pulmonary hypertension, unclear etiology of the pulmonary hypertension. HOME MEDICATIONS: * Acetaminophen. * Amlodipine. * Calcitriol. * Candice-Leslie. * Vitamin B complex. * Lasix 20 mg daily. * Losartan. * Metoprolol. * Nitroglycerin. * Protonix. * Prednisone at 15 mg p.o. daily. ALLERGIES: Patient apparently is allergic to: * Penicillin. * Macrolides. * Cortisone. * Isotretinoin. * Lisinopril. * Warfarin. REVIEW OF SYSTEMS: Review of systems is limited. This patient has difficulty providing history. Otherwise as HPI. PHYSICAL EXAMINATION: Temperature 97.9, pulse 76, respiratory rate 18, blood pressure 184/98, oxygen saturation 98% on room air. General: Awake, alert, and oriented. Affect and mood are appropriate. Nutrition and hygiene are good. Oral mucosa pink and moist without lesions. She is edentulous with dentures in place. Right naris has stigmata of recent nose bleed. I do not view any blood in the posterior pharynx. Neck is supple. No tracheal deviation or mask. Lymphs: No cervical, supraclavicular, or axillary adenopathy. There is a right catheter in place in the anterior chest wall without surrounding erythema or exudate. Pulmonary: Clear to auscultation without rales, rhonchi, or wheezes. No dullness to percussion. No accessory muscle use. Cardiac: Distant S1 and S2 without audible murmur, rub, or gallop. No elevated JVP. No peripheral edema. Abdomen: Soft, nontender, nondistended. No hepatosplenomegaly. No masses or hernia. Extremities: No cyanosis, clubbing, or edema. There are chronic venous stasis changes of the lower extremities. Skin: No new rashes or jaundice. Skin is pale. Musculoskeletal: Significant muscle atrophy. Appears to have muscle weakness but no new unilateral weakness. No tremor. LABORATORY DATA: Laboratory evaluation shows a white blood cell count of 10.7, hemoglobin 11.6, platelet count 217, neutrophils 78. Sodium 142, potassium 5.5, chloride 112, bicarb 23, BUN 69, creatinine 4.57, calcium 8.4. INR 0.91. Chest CT shows new infiltrate within the right lower lobe, basilar predominant, with some endobronchial secretions, minimal bronchiectasis bilaterally. Some very minimal subtle pleural based abnormalities on the left. No significant mass. No significant lymphadenopathy. EKG shows a normal sinus rhythm with a heart rate of 81, QRS duration of 90, QTC of 407. IMPRESSION: Hemoptysis likely secondary to epistaxis. Although patient does have a risk for having an alveolar hemorrhage from microscopic polyangiitis, her history, the fact that she is more hypertensive than usual, and physical findings correlate mostly with epistaxis and aspiration of blood. However, given the fact that she is at high risk for having alveolar hemorrhage, she will be monitored in the ICU. I do not feel it is necessary at this point in time to perform bronchoscopy. Her symptoms have resolved. I will continue to follow the patient closely for any signs of recurrence. KIMBERLY
--- NOTE | 2020-07-08 14:22 | CCN ---
DATE: 07/08/2020 SUBJECTIVE: Ms. Ocampo is seen in the ICU. She was admitted yesterday with hemoptysis. She had been having epistaxis but does have history of microscopic polyangiitis and is on chronic steroids. Around the time of her epistaxis she was having hypertensive urgency with significant elevation of blood pressures. She was admitted with hemoptysis and pulmonary team was consulted for the hemoptysis. The patient was seen yesterday by Dr. Sauer who felt that the hemoptysis was more likely due to the epistaxis versus the history of microscopic polyangiitis. The patient was seen today in the ICU. She was sitting on the side of her bed without any significant complaints. She stated that she had not had any further episodes of epistaxis or hemoptysis. She states her breathing has been reasonably good without any significant shortness of breath. She states she has been coughing a little bit. She denies fevers or chills. She also is being followed by nephrology for history of end stage renal disease and she is on hemodialysis. She did receive hemodialysis yesterday. The patient also had a Permacath malfunction and therefore underwent Permacath removal and new Permacath placement in the right IJ yesterday by vascular surgery. PHYSICAL EXAMINATION: VITAL SIGNS: Temperature 98.3. Pulse 77. Blood pressure 148/91. Respiratory rate 18. O2 saturation 97% on 2 liters. GENERAL: The patient is alert and oriented. She speaks in complete sentences. She is sitting up on the side of her bed preparing to work with physical therapy. HEENT: Head is normocephalic, atraumatic. Pupils are equal and reactive to light. Mucous membranes moist. No evidence of epistaxis. NECK: Supple, no cervical lymphadenopathy. No JVD. Trachea midline. PULMONARY: Clear to auscultation bilaterally, no wheezes, rhonchi or rales. No dullness to percussion. No accessory muscle use. ABDOMEN: Positive bowel sounds, soft, nontender, no rebound or guarding, no obvious hepatosplenomegaly. EXTREMITIES: No cyanosis, clubbing or edema. SKIN: Skin is warm and dry. NEURO: Nonfocal grossly. LABS: WBC 9.9, hemoglobin 11.1, hematocrit 34.0, platelets 166. Sodium 134, potassium 4.4, chloride 99, CO2 27, BUN 28, creatinine 2.59, glucose 113, calcium 8.0. ASSESSMENT AND PLAN: 1. Hemoptysis. It is felt by the pulmonary team that the hemoptysis was likely caused by the patients epistaxis which was likely caused by her significant hypertension episode and blood pressure elevation. Her medicine team and pet handler are managing the hypertension and her epistaxis has resolved and she has had no more epistaxis and no more hemoptysis. It is felt that the hemoptysis was likely from the epistaxis versus microscopic polyangiitis. At any rate, she is on steroids and she is being followed by nephrology. Our recommendation at this time would be to monitor closely for pneumonia. At this point the pulmonary team will sign off but we will be available if needed. 2. End stage renal disease. The patient is undergoing hemodialysis. She did have the Permacath replaced by vascular surgery yesterday. Nephrology continues to monitor her renal function. 3. Hypertension. As noted, medicine team and nephrology are managing the patients hypertension. KIMBERLY
[2020-07-08] MEDS: LOSARTAN 50MG TABLET PO SCH (20:18)
[2020-07-09 06:00] VITALS: BP 127/70
[2020-07-09 07:05] LABS: HEMOGLOBIN 11.2 g/dl (12.0-15.5); MEAN CORPUSCULAR HGB CONC 32.9 g/dl (32.0-36.5); MEAN CORPUSCULAR VOLUME 91.2 fl (80.0-96.0); PLATELET COUNT, AUTOMATED 213 10^3/uL (150-450); RED BLOOD COUNT 3.73 10^6/uL (4.00-5.40); WHITE BLOOD COUNT 10.3 10^3/uL (4.0-10.0)
[2020-07-09 07:27] LABS: CALCIUM LEVEL 8.5 MG/DL (8.8-10.2); CREATININE FOR GFR 2.8 MG/DL (0.55-1.30); GLOMERULAR FILTRATION RATE 17.4 (>39); POTASSIUM SERUM 3.6 MEQ/L (3.5-5.1)
[2020-07-09 08:38] VITALS: BP 108/64
[2020-07-09] MEDS ORDERED: PRED20TA PO (08:39)
[2020-07-09] MEDS: FUROSEMIDE 20 MG TAB PO SCH (08:40)
[2020-07-09] MEDS: amLODIPine 5 MG TAB PO SCH (08:40)
[2020-07-09 08:41] VITALS: BP 108/64
[2020-07-09] MEDS: METOPROLOL SUCC (TopROL XL) 100MG *XL* TAB PO SCH (08:41)
[2020-07-09] MEDS: FERROUS GLUCONATE 324 MG TAB PO SCH (09:00)
[2020-07-09] MEDS: (RENVELA) SEVELAMER **CARBONate** 800 MG TAB PO SCH (09:15)
[2020-07-09] MEDS: predniSONE 20 MG TAB PO SCH (09:16)
[2020-07-09] MEDS: CALCITRIOL 0.25 MCG CAP (S0169) PO SCH (09:17)
[2020-07-09] MEDS: PANTOPRAZOLE 40MG TAB (PROTONIX) PO SCH (09:17)
--- NOTE | 2020-07-09 10:24 | IPN ---
DATE: 07/08/2020 Patient's blood pressure has improved. She received dialysis access yesterday, status post dialysis. No recurrent episodes of epistaxis or hemoptysis. No fever, chills, or cough. Complains of headache this morning all around, no radiation, no changes in vision, as well as some nausea. Blood pressure remains 168 but improved from yesterday. VITAL SIGNS: Temperature 98.3, pulse 77, respiratory rate 18, blood pressure is 163/92, 97% on 2 liters nasal cannula. GENERAL: Patient is awake, alert, oriented to person, place, and time, answering questions appropriately. Slightly injected sclerae. Dry mucous membranes. No jugular venous distention (JVD) or thyromegaly. Face is symmetric. Tongue is midline. LUNGS: Diminished with crackles at the bases. HEART: S1, S2, sinus rhythm. ABDOMEN: Soft, nontender, nondistended. EXTREMITIES: No pitting edema. LABORATORY DATA: White count 9.9, hemoglobin 11, hematocrit 34, platelet count 166. Sodium 134, potassium 4.4, chloride 99, bicarbonate 27, BUN 28, creatinine 2.59, glucose 113. IMAGING STUDIES: Chest CT 07/07/2020: Marked improvement of the lungs with increasing involving medial portion of the right lower lobe. Pleural effusions have resolved. Residual small pericardial effusion. Density within the bronchus intermedius extending inferiorly to the middle and right lower lobe bronchi. Consider direct visualization if clinically indicated. ASSESSMENT AND PLAN: A 79-year-old female with a history of microscopic polyangiitis with pulmonary renal syndrome, end stage renal disease, on dialysis Monday, Monday, Monday, granulomatosis with polyangiitis, hypertension, paroxysmal atrial fibrillation, not on anticoagulation, vitamin D deficiency, anemia of chronic disease, Perm-A-Cath placement with malfunction, presented with episode of 1 day of hemoptysis and epistaxis. Was started on prednisone, access given yesterday, and was dialyzed for hyperkalemia. IMPRESSION: 1. Epistaxis, resolved,/hemoptysis. not on anticoagulation or antiplatelet therapy. Patient is medically stable overnight. Has had no issues with fever or chills despite a right lower lobe infiltrate on CT chest. Patient has been started on prednisone for microscopic polyangiitis with pulmonary renal involvement at 40 mg daily. Per pulmonary, patient may or may not be started on antibiotics for the right lower lobe pneumonia. Will wait for fever. If she should develop a fever, may start on empiric antibiotics with Levaquin. 2. Hypertensive urgency. Was given her home dose of Norvasc, metoprolol, and lisinopril yesterday and had received a dose of labetalol and clonidine for rapid control. This morning complains of a headache. Therefore, patient has been given 10 mg intravenous (IV) labetalol and to continue with her losartan and Norvasc along with metoprolol. May transfer to medical/surgical floor. 3. Microscopic polyangiitis, granulomatosis with polyangiitis. Monitored by pulmonary and nephrology. Currently not on any maintenance therapy but started on prednisone 40 mg daily per nephrology recommendation. 4. End stage renal disease, on maintenance dialysis Monday, Monday, Monday. Patient was dialyzed yesterday due to episodes of hyperkalemia and shortness of breath. Improved infiltrates on chest CT but with right lower lobe infiltrate with possible aspiration from the epistaxis. 5. Paroxysmal atrial fibrillation, rate controlled. Not on anticoagulation. May resume home dose of metoprolol. 6. Vitamin D deficiency. Resume home vitamin D at hospital discharge. 7. Anemia on chronic disease. No significant blood loss from epistaxis and hemoptysis. 8. Hyperkalemia, resolved. 9. Disposition. Patient is medically stable for medical/surgical transfer. Physical therapy (PT), home safety evaluation. 10. IV access for dialysis. Patient had removal of right internal jugular Perm-A-Cath. Placement of right IJ Perm-A-Cath tunneled was done by vascular surgeon, Dr. Jean. KIMBERLY
--- NOTE | 2020-07-09 10:26 | IPN ---
DATE: 07/08/2020 SUBJECTIVE: Patient was seen and examined at the bedside today morning in the ICU, last 24 hour events were noted. Patient got right IJ tunneled hemodialysis catheter placed by vascular surgery yesterday. She was dialyzed at the bedside. She tolerated the hemodialysis procedure well. One liter of fluid was removed. She no longer is complaining of any hemoptysis at this time. She is afebrile and hemodynamically stable. OBJECTIVE: Vital signs: Temperature 98 degrees Fahrenheit, blood pressure 132/77, pulse 85, respiratory rate 18, saturating 94% on room air. Intake and output: Urine output recorded as 125 mL. Ultrafiltration with hemodialysis was 1 liter Weight in the bed scale is 43.6 kg. PHYSICAL EXAMINATION: GENERAL: Patient is awake and alert, oriented x3, sitting up in the sofa, in no apparent distress. HEAD AND NECK: Extraocular muscles intact. Pupils equally round and reactive to light. Mucous membranes are moist. Neck is supple. She has a right IJ tunneled hemodialysis catheter. CARDIOVASCULAR: S1, S2, regular rate. Trace edema of the bilateral lower extremities. RESPIRATORY: Chest is clear to auscultation bilaterally. Bilateral equal air entry. No active rales or rhonchi. ABDOMEN: Soft. Positive bowel sounds. Nontender. No organomegaly. MUSCULOSKELETAL: No clubbing or cyanosis. Pulses are 2+. SURGICAL DENTAL ASSISTANT: No focal deficit. Power is 5/5 in all extremities. LABORATORY REVIEW: CBC showed WBC 9.9, hemoglobin 11.1, platelets are 166,000. BMP showed sodium 134, potassium 4.4, chloride 99, bicarbonate 27, BUN 28, creatinine 2.5. IMAGING STUDIES: A CAT scan of the chest was done yesterday, which showed marked improvement in the lungs with the exception of increasing opacity involving the medial portion of the right lower lobe, pleural effusions have resolved. Residual small pericardial effusion is noted. CURRENT INPATIENT MEDICATIONS: Patient's medications were all reviewed by myself. She was started on prednisone 40 mg p.o. daily. No other significant change in the medications today as compared with yesterday. ASSESSMENT AND PLAN: 1. End-stage renal disease: Patients regular dialysis days are Monday, Monday, Monday. She was dialyzed yesterday emergently because she had missed dialysis for almost a week. I would dialyze her again and try to remove one more kg of fluid and put her back onto her regular schedule. 2. Hypertensive urgency: Patient came in with fluid overload and possible noncompliance with medications as well. Continue current dose of Amlodipine, Metoprolol and Losartan. Blood pressure should get better with further fluid removal with dialysis today. 3. Chronic combined systolic and diastolic congestive heart failure: Volume status is being optimized with dialysis. Continue current dose of Lasix as well. 4. Atrial fibrillation: Heart rate is controlled with Metoprolol. 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 5. Microscopic polyangiitis and hemoptysis: Patient was started on prednisone 40 mg p.o. daily. Symptomatically she is getting better. No signs of fever. No antibiotics at this time. Once patient is discharged, she would likely benefit from getting a dose of Rituxan because of recurrent episodes of pulmonary infiltrates and lung involvement with microscopic polyangiitis. MTDD
--- NOTE | 2020-07-22 10:15 | IPN ---
DATE: 07/09/2020 SUBJECTIVE: Patient was seen and examined at the bedside today morning. She is afebrile and hemodynamically stable. She was dialyzed again yesterday and 1 liter of fluid was removed. Blood pressure is significantly better. She has not even taken Amlodipine and Metoprolol because of holding parameters and soft blood pressure. She denies any more hemoptysis. She continues to be on prednisone 40 mg daily. OBJECTIVE: Vital signs: Temperature 97.2 degrees Fahrenheit, blood pressure 108/64, pulse 72, respiratory rate 18, saturating 96% on room air. Intake and output: Urine output is not recorded since yesterday. Ultrafiltration with hemodialysis was 1 liter. Weight in the bed scale was 43.6 kg yesterday. PHYSICAL EXAMINATION: GENERAL: Patient is awake, alert and oriented x3, lying in bed in no apparent distress. HEAD AND NECK: Extraocular muscles are intact. Pupils equally round and reactive to light. Mucous membranes are moist. Neck is supple. She has a right IJ tunneled hemodialysis catheter. CARDIOVASCULAR: S1, S2, regular rate. No significant edema of the bilateral lower extremities. RESPIRATORY: Chest is clear to auscultation bilaterally. Bilateral equal air entry. No rales or rhonchi. ABDOMEN: Soft, positive bowel sounds, nontender. No organomegaly. MUSCULOSKELETAL: No clubbing or cyanosis. Pulses are 2+. LEATHER GRADER: No focal deficit. Power is 5/5 in all extremities. LABORATORY REVIEW: CBC showed WBC 10.3, hemoglobin 11.2, platelets 230,000. BMP showed sodium 137, potassium 3.6, chloride 102, bicarb 30, BUN 25, creatinine 2.8. CURRENT INPATIENT MEDICATIONS: Patient's medications were all reviewed by myself. She continues to be on prednisone 40 mg p.o. daily. Amlodipine was not given because of holding parameters; I had stopped the Amlodipine. She refused iron tablet, and I have also stopped the iron tablets as well. ASSESSMENT AND PLAN: 1. End-stage renal disease: Patient was dialyzed two days in a row, volume status is optimal, and she can resume her outpatient dialysis Monday, Monday, Monday - tomorrow morning. 2. Hypertension: It was secondary to missing dialysis, noncompliance with medication and fluid overload. She was dialyzed two days in a row. Blood pressure is significantly better. Continue Metoprolol and Losartan for now. I had stopped the Amlodipine. 3. Chronic combined systolic and diastolic congestive heart failure: Volume status is better. Continue current dose of Lasix. The rest of the volume status is optimized with dialysis. 4. Atrial fibrillation: Continue current dose of Metoprolol. 5. Microscopic polyangiitis with hemoptysis: Patient is on prednisone 40 mg p.o. daily. She needs to follow-up with nephrology and she needs to schedule a dose of Rituxan for recurrent hemoptysis and lung involvement with ANCA vasculitis. DISPOSITION: Patient is optimized to be discharged from nephrology standpoint. She needs to follow-up with nephrology within one week after discharge from the hospital. KIMBERLY
--- NOTE | 2020-07-27 11:23 | DS ---
DATE OF ADMISSION: 07/07/2020 DATE OF DISCHARGE: 07/09/2020 CONSULTANTS: Dr. Sauer, pulmonary, Dr. Hayden, nephrology, Dr. Jean, vascular surgery. PRIMARY DISCHARGE DIAGNOSES: 1. Epistaxis. 2. Hemoptysis. 3. Microscopic polyangiitis with pulmonary renal involvement. 4. End stage renal disease, on maintenance dialysis Monday, Monday, Monday. 5. Hypertensive urgency. 6. Paroxysmal atrial fibrillation, not on anticoagulation. 7. Vitamin D deficiency. 8. Anemia of chronic disease due to end stage renal disease. 9. Hyperkalemia. 10. Metabolic acidosis. 11. Malfunctioning [id number], requiring Perm-A-Cath placement. PROCEDURES DURING THIS ADMISSION: On 07/07/2020, dialysis catheter placement. DISCHARGE MEDICATIONS: - prednisone 40 mg daily - Norvasc 5 mg daily - acetaminophen 500 twice a day as needed - calcitriol 0.25 mcg daily - ferrous gluconate 324 daily - Candice-Leslie one tablet daily - Lasix 20 daily - losartan 50 every night - metoprolol 100 daily - nitroglycerin 0.4 as needed - Protonix 40 daily - Renvela 800 mg daily DISCHARGE INSTRUCTIONS: Patient is to continue with high dose of prednisone 40 mg daily, to be tapered by either Dr. Hayden or Dr. Sauer as outpatient. HOSPITAL COURSE: This is a 79-year-old female who presented to the emergency room on July 07 with complaints of epistaxis and hemoptysis with large blood clot. CT chest showed right lower lobe infiltrate, questionable aspiration. Seen by web application tester, Dr. Sauer. Recommended no bronchoscopy and to continue with prednisone 40 mg daily. Patient was found to be hyperkalemic and volume overloaded with hypertensive urgency and was dialyzed by sonoscope operator, Dr. Hayden, who also agreed with continuing prednisone. Due to a malfunctioning dialysis catheter, patient underwent placement of a [id number] and subsequently had dialysis. She had significant improvement with her blood pressure, decreasing from a peak of 204/100 to current blood pressure of 108/64 with fluid removal. She is not maintained on her home dose of blood pressure medications and has passed physical therapy. PHYSICAL EXAMINATION ON DISCHARGE: Temperature 97.2, pulse 76, respiratory rate 18, blood pressure 108/64, 96% on room air. GENERAL: Awake, alert, oriented times three. No jugular venous distention (JVD) or thyromegaly. Moist mucous membranes. LUNGS: Clear to auscultation. No wheezing, rales, or rhonchi. HEART: S1, S2, irregularly irregular. ABDOMEN: Soft, nontender, nondistended. EXTREMITIES: No cyanosis, clubbing, or pitting edema. LABORATORY DATA ON DISCHARGE: White count 10, hemoglobin 11, hematocrit 34, platelet count 213. Sodium 137, potassium 3.6, chloride 102, bicarbonate 30, BUN 25, creatinine 2.8, glucose 81. IMAGING STUDIES: CT chest 07/07/2020: Improvement of the lungs with the exception of increasing ____ medial portion of the right lower lobe. Pleural effusions have resolved. Residual small pericardial effusion. Density within the bronchus intermedius extending inferiorly to the middle and right lower lobe bronchi. Consider direct visualization if clinically indicated. TIME SPENT ON DISCHARGE: 30 minutes. MTDD
[2020-08-07] MEDS ORDERED: PRED10TA2 PO (12:53)
== END 2020-07-09 13:05 | disposition home or self-care (01) | DRG 252 ==
LOC: M ED 08:45 → EDBD 08:45 → M ED INP 12:36 → M ICU 14:40 → M MSPAV 07-08 11:46
PROVIDERS: ADMIT General Practice; ATTEND General Practice
PROC: 0JH63XZ Insertion of Tunneled Vascular Access Device into Chest Subcutaneous Tissue and Fascia, Percutaneous Approach (ICD-10-PCS; 2020-07-07)
PROC: 02HV33Z Insertion of Infusion Device into Superior Vena Cava, Percutaneous Approach (ICD-10-PCS; 2020-07-07)
PROC: 05P Upper Veins, Removal (ICD-10-PCS; principal; 2020-07-07 13:36)
PROC: 5A1D70Z Performance of Urinary Filtration, Intermittent, Less than 6 Hours Per Day (ICD-10-PCS; 2020-07-08)
DX: T82.41XA Breakdown (mechanical) of vascular dialysis catheter, initial encounter (principal); N18.6 End stage renal disease; M31.7 Microscopic polyangiitis; I13.2 Hypertensive heart and chronic kidney disease with heart failure and with stage 5 chronic kidney disease, or end stage renal disease; M31.0 Hypersensitivity angiitis; N25.81 Secondary hyperparathyroidism of renal origin; I50.42 Chronic combined systolic (congestive) and diastolic (congestive) heart failure; R04.2 Hemoptysis; E87.2 Acidosis; I48.0 Paroxysmal atrial fibrillation; I16.0 Hypertensive urgency; E87.5 Hyperkalemia; R04.0 Epistaxis; E55.9 Vitamin D deficiency, unspecified; D63.1 Anemia in chronic kidney disease; Z88.0 Allergy status to penicillin; Z88.1 Allergy status to other antibiotic agents; Z88.8 Allergy status to other drugs, medicaments and biological substances; Z79.52 Long term (current) use of systemic steroids; Z79.899 Other long term (current) drug therapy; Z99.2 Dependence on renal dialysis

== ENCOUNTER 2020-07-13 14:31 | Inpatient (IN) | payer MEDICARE, MEDICAID ==
[~2020-07-13] VITALS: Ht 165.1 cm; Wt 45.5 kg
[~2020-07-13 14:31] MED LIST changes: +RENV2TAB PO
--- NOTE | 2020-07-13 15:27 | REPVR ---
PROCEDURE INFORMATION: Exam: XR Chest, 1 View Exam date and time: 07/13/2020 2:45 PM Age: 79 years old Clinical indication: Swollen right shoulder; Additional info: Hemoptysis TECHNIQUE: Imaging protocol: XR of the chest Views: 1 view. COMPARISON: CT Chest without contrast 07/07/2020 11:16 AM FINDINGS: Tubes, catheters and devices: ECG leads/contacts overlie and partially obscure the anatomy. A right upper chest catheter is present with its tip projecting at the expected location of the right atrium. Lungs: Minimal left lower lung airspace opacities are similar to the prior examinations. Large consolidative and ground-glass airspace disease of the right mid and lower lung is increased. The upper lungs appear hyperinflated. Pleural space: No evident pleural effusion. No evident pneumothorax. Heart/Mediastinum: The cardiac silhouette is mildly diffusely enlarged. Vasculature: Tortuous thoracic aorta. Aortic atherosclerotic calcification. Diaphragm: Bilateral flattened hemidiaphragms. Bones/joints: The bones are diffusely demineralized. Thoracolumbar scoliotic curvature redemonstrated. Ovoid calcifications projecting lateral to the right proximal humerus are redemonstrated, possibly glenohumeral joint loose bodies. Bilateral glenohumeral joint effusions are noted on the 07/07/2020 CT. Degenerative disease of the spine and shoulder joints. Soft tissues: Bilateral nipple shadows noted. IMPRESSION: 1. Worsened right mid and lower lung airspace disease compared to 07/07/2020. Infectious pneumonia, aspiration pneumonia, and pulmonary hemorrhage are considerations. There may be an element of right middle lobe atelectasis. Pulmonary neoplasm is not excluded. 2. Findings suggestive of COPD. Electronically signed by: López Dobbs On 07/13/2020 15:27:22 PM
[2020-07-13 16:07] LABS: BASO % 0.1 % (0.0-1.0); EOS # 0.1 10^3/uL (0.0-0.5); EOS % 0.3 % (0.0-3.0); HEMATOCRIT 33.5 % (36.0-47.0); HEMOGLOBIN 11.1 g/dl (12.0-15.5); LYMPH # 1.4 10^3/uL (1.5-5.0); LYMPH % 9.4 % (24.0-44.0); MEAN CORPUSCULAR HEMOGLOBIN 30.5 pg (27.0-33.0); MEAN CORPUSCULAR HGB CONC 33.1 g/dl (32.0-36.5); MONO # 1.1 10^3/uL (0.0-0.8); MONO % 6.8 % (0.0-5.0); NEUTROPHILS # 12.6 10^3/uL (1.5-8.5); NEUTROPHILS % 82.3 % (36.0-66.0); PLATELET COUNT, AUTOMATED 232 10^3/uL (150-450); RED BLOOD COUNT 3.64 10^6/uL (4.00-5.40); WHITE BLOOD COUNT 15.4 10^3/uL (4.0-10.0)
[2020-07-13] MEDS ORDERED: amLODIPine 5 MG TAB PO ONE (16:15)
[2020-07-13] MEDS ORDERED: METOPROLOL SUCC (TopROL XL) 100MG *XL* TAB PO ONE (16:15)
[2020-07-13 16:32] LABS: ALBUMIN 3.3 GM/DL (3.2-5.2); BILIRUBIN,DIRECT 0.2 MG/DL (0.0-0.2); BILIRUBIN,TOTAL 0.6 MG/DL (0.2-1.0); CALCIUM LEVEL 8.3 MG/DL (8.8-10.2); CREATININE FOR GFR 4.43 MG/DL (0.55-1.30); GLOMERULAR FILTRATION RATE 10.2 (>39); POTASSIUM SERUM 3.9 MEQ/L (3.5-5.1); TOTAL PROTEIN 6.4 GM/DL (6.4-8.2)
[2020-07-13] MEDS ORDERED: MEROPENEM INJ 1 GM in IV 1 EA IV ONE (17:00)
[2020-07-13] MEDS ORDERED: methylPREDNISolone 125MG 2ML VIAL IV ONE (17:00)
--- NOTE | 2020-07-13 18:04 | HPEPDOC ---
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 She states that she was getting ready to go dialysis when she started to cough up the blood. She states that this is the second time she has coughed up blood like this, the last time was 07/09/2020. She states that she can feel a tingling sensation prior to the spurts of cough and there were copious amounts of blood that some went up her nose and had swallowed a lot of the blood as well which is making her nauseated. Pt states that she had been diagnosed of the vasculitis in 1998 at [facility] and took mycophenolate for 2 years and was in remission until 2004. She started back on the mycophenolate until a year ago because she had some side effects and stopped taking it. In the ER, patient's bp is 188/103 and patient states mild blurry vision prior to arriving in the ER but has since resolved. She states she's compliant with dialysis and her last session was last Monday; she also states she's complaint with her bp meds (norvasc) and metoprolol, but has not taken her meds today yet due to hemopytsis. There's no associated fever, chills, palpitations, lightheadeness, dizziness or falls. She does have mild shortness of breath. REVIEW OF SYSTEMS: All 10 points have been reviewed. 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 two grown sons; denies alcohol, tobacco, or recreational drug use HOME MEDICATIONS: Please see below. PHYSICAL EXAMINATION: VITAL SIGNS: Temperature 96.7 F HR 72 RR 24 BP 188/103 O2 sat 94% GENERAL APPEARANCE: severely malnourished female NAD, sitting comfortably in bed. AAOx3 HEENT: Oral mucosa pink and moist without lesions. She has dentures in place. Some residual blood around her lips. Naris patent with some residual blood. No posterior blood seen in posterior pharynx. Neck supple, no tracheal deviation, no JVD. CARDIOVASCULAR: R sided perma Cath noted; dry and intact. no erythema around site, Distant s1 and S2 no audible murmur, rubs or gallops. No peripheral edema noted bilateral lower extr LUNGS: No wheezing, rhonci or rales. No dullness to percussion. no accessory muscle use ABDOMEN: soft nontender, normoactive bs, no obvious organomegaly, masses or hernia. MUSCULOSKELETAL: severe muscle wasting, malnourished, thin, ROM no impeded, appears very fraile and weak but no unilateral weakness or tremors or seizures EXTREMITIES: L leg appears larger than R leg (chronic) NEUROLOGICAL: AAox3 PSYCHIATRIC: very pleasant elderly lady, no flat affect and mood is appropriate LABORATORY DATA: See below. IMAGING: CXR 1. Worsened right mid and lower lung airspace disease compared to 07/07/2020. Infectious pneumonia, aspiration pneumonia, and pulmonary hemorrhage are considerations. There may be an element of right middle lobe atelectasis. Pulmonary neoplasm is not excluded. 2. Findings suggestive of COPD MICROBIOLOGY: Please see below. 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 In the ER, she also had a bp of 188/103 and stated that she had some associated blurring of her vision that has now resolved #Hemopytsis #Granulomatosis with polyangiits #Uncontrolled HTN #Vit D deficiency #Anemia of chronic disease #Paroxysmal Afib not on anticoags - Admit to PCU telemetry - H/H stable, will continue to monitor closely with CBC in the am - Will continue to monitor CBC and CMP closely - Will consider pulm consultation if condition worsens as patient is at risk for alveolar hemorrahge - Per Nephrology- continue solumedrol 125mg IV q6h - BP on admission 188/103- continue home meds metoprolol and norvasc and will continue to monitor bp closely - If Bp is uncontrolled, will consider adding IV labetolol - Continue home meds for vit D def - Pt has hx of paroxysmal Afib, currently in sinus rhythm- on telemetry GI ppx: Protonix 40mg PO qdaily Diet: clear liquid diet, advance t0 2g Na diet as tolerated Aspiration precautions DVT ppx: TEDS/SCDs Consultation: Dr. Augustin (nephrology) Vital Signs Vital Signs Date Time Temp Pulse Resp B/P (MAP) Pulse Ox O2 Delivery O2 Flow Rate FiO2 07/13/20 14:52 96.7 72 24 188/103 (131) 94 Room Air Laboratory Data Labs 24H Laboratory Tests 2 07/13/20 14:39: Immature Granulocyte % (Auto) 1.1, Neutrophils (%) (Auto) 82.3H, Lymphocytes (%) (Auto) 9.4L, Monocytes (%) (Auto) 6.8H, Eosinophils (%) (Auto) 0.3, Basophils (%) (Auto) 0.1, Neutrophils # (Auto) 12.6H, Lymphocytes # (Auto) 1.4L, Monocytes # (Auto) 1.1H, Eosinophils # (Auto) 0.1, Basophils # (Auto) 0.0, Nucleated Red Blood Cells % (auto) 0.0, Anion Gap 7L, Glomerular Filtration Rate 10.2L, Calcium Level 8.3L, Total Bilirubin 0.6, Direct Bilirubin 0.2, Aspartate Amino Transf (AST/SGOT) 24, Alanine Aminotransferase (ALT/SGPT) 41, Alkaline Phosphatase 61, Total Protein 6.4, Albumin 3.3, Albumin/Globulin Ratio 1.1L, Lip ase 368 CBC/BMP Laboratory Tests 07/13/20 14:39 Home Medications Scheduled Amlodipine Besylate (Amlodipine Besylate) 5 Mg Tablet, 5 MG PO DAILY Cefdinir (Cefdinir) 300 Mg Capsule, 300 MG PO DAILY Ferrous Gluconate (Ferrous Gluconate) 324 Mg Tablet, 324 MG PO DAILY Folic Acid/Vit B Complex and C (Candice-Leslie Tablet) 0.8 Mg Tablet, 1 TAB PO DAILY Furosemide (Furosemide) 20 Mg Tablet, 20 MG PO DAILY Losartan Potassium (Losartan Potassium) 50 Mg Tablet, 50 MG PO QHS Metoprolol Succinate (Metoprolol Succinate) 100 Mg Tab.er.24h, 100 MG PO DAILY Metronidazole (Flagyl) 500 Mg Tablet, 500 MG PO Q8H FOR 8 DAYS and f/u with Dr. Augustin Pantoprazole Sodium (Pantoprazole Sodium) 40 Mg Tablet.dr, 40 MG PO DAILY Prednisone (Prednisone) 50 Mg Tablet, 50 MG PO DAILY f/u with Dr. Augustin Sevelamer Carbonate (Renvela) 800 Mg Tablet, 800 MG PO AC Scheduled PRN Acetaminophen (Acetaminophen) 500 Mg Tablet, 500 MG PO BID PRN for PAIN Nitroglycerin (Nitrostat) 0.4 Mg Tab.subl, 0.4 MG SL NITRO PRN for CHEST PAIN Allergies Coded Allergies: Penicillins (Verified Allergy, Intermediate, RASH, 08/04/20) clarithromycin (Verified Allergy, Intermediate, rash, 08/04/20) isotretinoin (Verified Allergy, Mild, 08/04/20) cortisone (Verified Allergy, Unknown, 08/04/20) lisinopril (Verified Allergy, Unknown, 08/04/20) warfarin (Verified Adverse Reaction, Intermediate, HALLUCINAIONS, 08/04/20) A-FIB/CHADSVASC A-FIB History Current/History of A-Fib/PAF?: Yes Current PO Anticoag Therapy: No Age/Risk Factor Scoring CHADSVASC: CHADSVASC Response (Comments) Value Age Risk Factor Age >/= 75 years old 2 Gender Risk Factor Female 1 Hx of CHF Yes 1 Hx of HTN Yes 1 Hx of Stroke/TIA/or VTE No 0 Hx of Diabetes No 0 Hx of Vascular Disease Yes 1 Total 6 Treatment Treatment ordered: Other (TEDS SCDs due to active hemopytis and epistaxis ) Other anticoagulant ordered: TEDS/SCDs Reason Anticoagulant not given: Current bleeding GME ATTESTATION GME ATTESTATION My faculty preceptor for this patient encounter was physically present during the encounter and was fully available. All aspects of the patient interview, examination, medical decision making process, and medical care plan development were reviewed and approved by the faculty preceptor. The faculty preceptor is aware and concurs with the plan as stated in the body of this note and will a ttest to such by his/her cosignature. ATTENDING NOTE Patient seen and examined independently. Agree with resident's note. Beckie Black DO Jul 13, 2020 18:04 ORIN DUTTON MD Aug 05, 2020 12:34
[2020-07-13] MEDS ORDERED: ACETAMINOPHEN 500 MG TAB PO PRN (19:30)
[2020-07-13 20:06] LABS: INR 0.9; PROTHROMBIN TIME 12.3 SECONDS (12.5-14.3)
[2020-07-13 20:07] LABS: PARTIAL THROMBOPLASTIN TIME 25.1 SECONDS (24.2-38.5)
--- NOTE | 2020-07-13 20:33 | ECGEPIP ---
[facility] - ED Test Date: 2020-07-13 Pat Name: CARON CHOI Department: Room: - Gender: Female Clinical Fellow: Dimitri DAVE : 1940 Requested By: Saurabh Howell Order Number: [id number] Reading MD: Sil Moreland Measurements Intervals [place] Rate: 67 P: 68 AK: 148 QRS: 27 QRSD: 89 T: 29 QT: 398 QTc: 421 Interpretive Statements SINUS RHYTHM NSTTW abnormalities NO PRIOR Electronically Signed on 07-13-2020 20:33:02 EDT by Sil Moreland
[2020-07-13 21:45] VITALS: BP 164/78
[2020-07-13] MEDS: LOSARTAN 50MG TABLET PO SCH (22:16)
[2020-07-13] MEDS ORDERED: SLF 3 ML SYR IV PRN (22:45)
[2020-07-14] VITALS (11 sets, daily range): BP systolic 146–182; BP diastolic 78–102
[2020-07-14 04:57] LABS: HEMATOCRIT 28.8 % (36.0-47.0); HEMOGLOBIN 9.3 g/dl (12.0-15.5); MEAN CORPUSCULAR HEMOGLOBIN 29.2 pg (27.0-33.0); MEAN CORPUSCULAR HGB CONC 32.3 g/dl (32.0-36.5); MEAN CORPUSCULAR VOLUME 90.6 fl (80.0-96.0); PLATELET COUNT, AUTOMATED 199 10^3/uL (150-450); RED BLOOD COUNT 3.18 10^6/uL (4.00-5.40); WHITE BLOOD COUNT 12.4 10^3/uL (4.0-10.0)
[2020-07-14 05:35] LABS: ALBUMIN 2.5 GM/DL (3.2-5.2); BILIRUBIN,TOTAL 0.6 MG/DL (0.2-1.0); CALCIUM LEVEL 7.4 MG/DL (8.8-10.2); CREATININE FOR GFR 4.44 MG/DL (0.55-1.30); GLOMERULAR FILTRATION RATE 10.2 (>39); POTASSIUM SERUM 4.3 MEQ/L (3.5-5.1)
[2020-07-14] MEDS: SLF 3 ML SYR IV SCH ×3 (05:56→22:53)
[2020-07-14] MEDS: (RENVELA) SEVELAMER **CARBONate** 800 MG TAB PO SCH ×3 (07:55→17:19)
[2020-07-14] MEDS: PANTOPRAZOLE 40MG TAB (PROTONIX) PO SCH (08:11)
[2020-07-14] MEDS: FERROUS GLUCONATE 324 MG TAB PO SCH (08:12)
[2020-07-14] MEDS: METOPROLOL SUCC (TopROL XL) 100MG *XL* TAB PO SCH (08:12)
[2020-07-14] MEDS: amLODIPine 5 MG TAB PO SCH (08:12)
[2020-07-14] MEDS ORDERED: FUROSEMIDE 20 MG TAB PO SCH (09:00)
--- NOTE | 2020-07-14 09:10 | IPNPDOC ---
Subjective Date Seen The patient was seen on 07/14/20. Subjective Chief Complaint/HPI Pt was seen at bedside this am and resting comfortably in bed without any acute distress. states that her nausea is controlled. She had a bowel movement where she saw some blood mixed in but likely 2/2 to the blood she ingested. Denies any bright red blood or maroon colored stools. Denies CP, sob, abdominal discomfort. States that she feels less fatigued and overall feels better compared to yesterday. No acute events overnight. BP is improving 155/95. REVIEW OF SYSTEMS: Constitutional: Denies weight loss, has decreased appetite, or recent trauma Eyes: No visual changes or eye pain Ears, Nose, Throat: Denies nose bleeds since yesterday, or difficulty swallowing, feels some tingling in throat Cardiovascular: Denies chest pain, sweating, or orthopnea Respiratory: Denies wheezing, or shortness of breath, admits to chronic non-productive cough GI: Guevara nausea, vomiting, abdominal pain, diarrhea or constipation : Denies pain with urination or frequency Musculoskeletal: denies muscle stiffness, or weakness Neuro / Psych: Denies muscle weakness or sensory loss Skin: No skin rashes noted PHYSICAL EXAMINATION: VITAL SIGNS: Temperature 97.2, pulse 72, respiratory rate 18, blood pressure 155/95, 96%RA GENERAL APPEARANCE: Malnourished, very thin elderly female laying in bed, calm, cooperative, NAD HEENT: NC/AT, EOMI, PERRL, MMM CARDIOVASCULAR: distant s2 and S2 without audible rubs/gallops or murmurs, RRR LUNGS: Clear to auscultation bilaterally, no adventitious breath sounds ABDOMEN: soft, nontender, nondistended, no obvious organomegaly, masses or hernia. MUSCULOSKELETAL: moves all extremities well EXTREMITIES: no clubbing/cyanosis/edema NEUROLOGICAL: No obvious focal deficits PSYCHIATRIC: Awake, alert and oriented only to time and person, not to place. Very talkative, normal mood/affect SKIN: Warm, well-perfused, no obvious rashes LABS: see below Imagin. Worsened right mid and lower lung airspace disease compared to 07/07/2020. Infectious pneumonia, aspiration pneumonia, and pulmonary hemorrhage are considerations. There may be an element of right middle lobe atelectasis. Pulmonary neoplasm is not excluded. 2. 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 In the ER, she also had a bp of 188/103 and stated that she had some associated blurring of her vision that has now resolved Plan/VTE VTE Prophylaxis Ordered?: Yes Plan - Suspected Hemoptysis, possibly 2/2 aspiration of blood: No episodes since admission. Will get ENT consult- appreciate recommendations - Anemia of chronic disease: H/H 9.3/28.8- a decrease from yesterday, will continue to monitor closely. H/H at 1200 and 1800 - Will continue to monitor CBC and CMP closely - Will consider pulm consultation if condition worsens as patient is at risk for alveolar hemorrhage - ESRD: Consulted Nephrology- will be scheduled for dialysis today; missed HD Monday - Will reduce dose of Solumedrol to 60 IV q6h (re: Vasculitis) - Coverage for Aspiration PNA: Moxifloxacin 400mg IV q24h (07/14- 07/18)- DAY 1 - Uncontrolled HTN: BP on admission 188/103; improved today 155/95- continue current regimen (Norvasc, metoprolol and losartan) - Continue home dose of lasix 20mg daily - Vitamin D def: Continue home meds - Hx of paroxysmal Afib: currently in sinus rhythm- on telemetry. No anticoags at this time 2/2 to active hemoptysis - Severe protein calorie malnutrition; BMI of 16; severe muscle wasting DVT ppx: TEDs/SCDs GI ppx: Protonix 40mg PO daily Code status: Full Consultations: Nephrology (Dr. Augustin) ENT (Dr. Shultz) Disposition: Dialysis today per nephrology; ENT consulted and personally spoken with Dr. Shultz- will see patient today with further recommendations. Closely monitor H/H as there's no active hemopysis since yesterday. Likely discharge tomorrow if continues to be stable. VS, I&O, 24H, Fishbone Vital Signs/I&O Vital Signs Date Time Temp Pulse Resp B/P (MAP) Pulse Ox O2 Delivery O2 Flow Rate FiO2 07/14/20 08:12 180/100 07/14/20 08:00 97.5 78 16 94 Room Air I&O- Last 24 Hours up to 6 AM 07/14/20 06:00 Intake Total 50 ml Output Total 0 ml Balance 50 ml Laboratory Data 24H LABS Laboratory Tests 2 07/13/20 14:39: Immature Granulocyte % (Auto) 1.1, Neutrophils (%) (Auto) 82.3H, Lymphocytes (%) (Auto) 9.4L, Monocytes (%) (Auto) 6.8H, Eosinophils (%) (Auto) 0.3, Basophils (%) (Auto) 0.1, Neutrophils # (Auto) 12.6H, Lymphocytes # (Auto) 1.4L, Monocytes # (Auto) 1.1H, Eosinophils # (Auto) 0.1, Basophils # (Auto) 0.0, Nucleated Red Blood Cells % (auto) 0.0, Anion Gap 7L, Glomerular Filtration Rate 10.2L, Calcium Level 8.3L, Total Bilirubin 0.6, Direct Bilirubin 0.2, Aspartate Amino Transf (AST/SGOT) 24, Alanine Aminotransferase (ALT/SGPT) 41, Alkaline Phosphatase 61, Total Protein 6.4, Albumin 3.3, Albumin/Globulin Ratio 1.1L, Lipase 368 07/13/20 19:39: Prothrombin Time 12.3, Prothromb Time International Ratio 0.90, Activated Partial Thromboplast Time 25.1 07/14/20 04:25: Nucleated Red Blood Cells % (auto) 0.0, Anion Gap 8, Glomerular Filtration Rate 10.2L, Calcium Level 7.4L, Total Bilirubin 0.6, Aspartate Amino Transf (AST/SGOT) 17, Alanine Aminotransferase (ALT/SGPT) 29, Alkaline Phosphatase 49, Total Protein 5.0#L, Albumin 2.5#L, Albumin/Globulin Ratio 1.0L CBC/BMP Laboratory Tests 07/13/20 14:39 07/14/20 04:25 Microbiology Microbiology 07/13/20 Blood Culture, Received Pending 07/13/20 Blood Culture, Received Pending GME ATTESTATION GME ATTESTATION My faculty preceptor for this patient encounter was physically present during the encounter and was fully available. All aspects of the patient interview, examination, medical decision making process, and medical care plan development were reviewed and approved by the faculty preceptor. The faculty preceptor is aware and concurs with the plan as stated in the body of this note and will attest to such by his/her cosignature. ATTENDING NOTE I, Tommy Roberts, have independently examined this patient and performed my own physical exam, as well as reviewed the documentation and edited where necessary. I have discussed in detail with the resident / student the findings and plan of treatment as documented by the resident / student and edited their note. I agree with their findings and treatment plan and have edited their documentation. I will continue to follow the patient during this hospital stay. Beckie Black DO Jul 14, 2020 09:10 TOMMY ROBERTS MD Jul 14, 2020 15:37
[2020-07-14] MEDS: MOXIFLOXACIN HCL 400 MG in IV 1 EA IV SCH (11:51)
[2020-07-14 12:44] LABS: HEMOGLOBIN 10.4 g/dl (12.0-15.5)
--- NOTE | 2020-07-14 13:41 | IPNPDOC ---
Text Note Date of Service The patient was seen on 07/14/20. NOTE ENT Came by at 1 :30 PM for consult and patient was out of the room for a procedure. Will try again later VSGhada, I+O VSGhada, I+O Laboratory Tests 07/13/20 14:39 07/14/20 04:25 07/14/20 12:19 Vital Signs Date Time Temp Pulse Resp B/P (MAP) Pulse Ox O2 Delivery O2 Flow Rate FiO2 07/14/20 11:49 97.5 71 16 146/81 (102) 97 Room Air I&O- Last 24 Hours up to 6 AM 07/14/20 05:59 Intake Total 50 ml Output Total 0 ml Balance 50 ml JACE SALCIDO MD Jul 14, 2020 13:41
[2020-07-14 16:30] LABS: HEPATITIS B CORE ANTIBODY IGM NEGATIVE (NEGATIVE); HEPATITIS B SURFACE ANTIBODY NEGATIVE (POSITIVE); HEPATITIS B SURFACE ANTIGEN NEGATIVE (NEGATIVE); HEPATITIS C VIRUS ABY INDEX 0.2 INDEX (<0.8)
[2020-07-14 18:18] LABS: HEMATOCRIT 30.8 % (36.0-47.0); HEMOGLOBIN 10.3 g/dl (12.0-15.5)
[2020-07-14] MEDS: LOSARTAN 50MG TABLET PO SCH (20:29)
[2020-07-14] MEDS: methylPREDNISolone 125MG 2ML VIAL IV SCH (22:53)
[2020-07-14] MEDS ORDERED: methylPREDNISolone 125MG 2ML VIAL IV SCH (23:00)
[2020-07-14 23:49] LABS: HEMATOCRIT 29.9 % (36.0-47.0); HEMOGLOBIN 10.1 g/dl (12.0-15.5)
[2020-07-15] VITALS: BP 172/88
[2020-07-15] MEDS: amLODIPine 5 MG TAB PO SCH ×3 (01:04→20:56)
[2020-07-15 04:00] VITALS: BP 142/72
[2020-07-15 05:29] LABS: BASO % 0.1 % (0.0-1.0); HEMATOCRIT 29.3 % (36.0-47.0); HEMOGLOBIN 9.7 g/dl (12.0-15.5); LYMPH # 0.5 10^3/uL (1.5-5.0); LYMPH % 3.8 % (24.0-44.0); MEAN CORPUSCULAR HEMOGLOBIN 29.7 pg (27.0-33.0); MEAN CORPUSCULAR HGB CONC 33.1 g/dl (32.0-36.5); MEAN CORPUSCULAR VOLUME 89.6 fl (80.0-96.0); MONO # 0.2 10^3/uL (0.0-0.8); MONO % 1.4 % (0.0-5.0); NEUTROPHILS # 11.1 10^3/uL (1.5-8.5); NEUTROPHILS % 93.9 % (36.0-66.0); PLATELET COUNT, AUTOMATED 195 10^3/uL (150-450); RED BLOOD COUNT 3.27 10^6/uL (4.00-5.40); WHITE BLOOD COUNT 11.8 10^3/uL (4.0-10.0)
[2020-07-15] MEDS: SLF 3 ML SYR IV SCH ×3 (05:40→20:56)
[2020-07-15] MEDS: methylPREDNISolone 125MG 2ML VIAL IV SCH ×3 (05:40→17:29)
[2020-07-15 05:52] LABS: CALCIUM LEVEL 8.1 MG/DL (8.8-10.2); CREATININE FOR GFR 2.66 MG/DL (0.55-1.30); GLOMERULAR FILTRATION RATE 18.5 (>39); MAGNESIUM LEVEL 1.9 MG/DL (1.8-2.4); POTASSIUM SERUM 4.3 MEQ/L (3.5-5.1)
[2020-07-15] MEDS: (RENVELA) SEVELAMER **CARBONate** 800 MG TAB PO SCH ×3 (07:48→17:29)
[2020-07-15 08:00] VITALS: BP 154/84
--- NOTE | 2020-07-15 08:52 | DS.PDOC ---
Discharge Summary General Date of Admission Jul 13, 2020 at 18:07 Date of Discharge 07/15/2020 Attending Physician: JEANETTE PUGA MD Discharge Summary PROCEDURES PERFORMED DURING STAY: ADMITTING DIAGNOSES: 1. hemopytis DISCHARGE DIAGNOSES: hemoptysis resolved COMPLICATIONS/CHIEF COMPLAINT: Esrd Hypertensive Urgency. 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 She states that she was getting ready to go dialysis when she started to cough up the blood. She states that this is the second time she has coughed up blood like this, the last time was 07/09/2020. She states that she can feel a tingling sensation prior to the spurts of cough and there were copious amounts of blood that some went up her nose and had swallowed a lot of the blood as well which is making her nauseated. Pt states that she had been diagnosed of the vasculitis in 1998 at [facility] and took mycophenolate for 2 years and was in remission until 2004. She started back on the mycophenolate until a year ago because she had some side effects and stopped taking it. In the ER, patient's bp is 188/103 and patient states mild blurry vision prior to arriving in the ER but has since resolved. She states she's compliant with dialysis and her last session was last Monday; she also states she's complaint with her bp meds (norvasc) and metoprolol, but has not taken her meds today yet due to hemopytsis. There's no associated fever, chills, palpitations, lightheadeness, dizziness or falls. She does have mild shortness of breath. ENT was consulted . Patient will resume dialysis. Pt was instructed to follow up with ENT and PCP within 7 days. Patient is instructed that if her conditions worsen that she is to report to her nearest ER. DISCHARGE MEDICATIONS: Please see below. ALLERGIES: Please see below. PHYSICAL EXAMINATION ON DISCHARGE: VITAL SIGNS: Please see below. LABORATORY DATA: Please see below. IMAGING: PROGNOSIS: ACTIVITY: [As tolerated]. DIET: DISCHARGE PLAN: DISPOSITION: . DISCHARGE INSTRUCTIONS: 1. . ITEMS TO FOLLOWUP ON ON OUTPATIENT: 1. . DISCHARGE CONDITION: [Stable]. TIME SPENT ON DISCHARGE: Greater than minutes. Vital Signs/I&Os Vital Signs Date Time Temp Pulse Resp B/P (MAP) Pulse Ox O2 Delivery O2 Flow Rate FiO2 07/15/20 08:00 98.3 75 16 154/84 (107) 98 Room Air I&O- Last 24 Hours up to 6 AM 07/15/20 05:59 Intake Total 1170 ml Output Total 1000 ml Balance 170 ml Laboratory Data Labs 24H Laboratory Tests 2 07/14/20 15:00: Hepatitis B Surface Antigen NEGATIVE, Hepatitis B Surface Antibody NEGATIVE, Hepatitis B Core IgG Antibody Negative, Hepatitis B Core IgM Antibody NEGATIVE, Hepatitis C Antibody Index 0.2 07/15/20 04:40: Immature Granulocyte % (Auto) 0.8, Neutrophils (%) (Auto) 93.9H, Lymphocytes (%) (Auto) 3.8L, Monocytes (%) (Auto) 1.4, Eosinophils (%) (Auto) 0.0, Basophils (%) (Auto) 0.1, Neutrophils # (Auto) 11.1H, Lymphocytes # (Auto) 0.5L, Monocytes # (Auto) 0.2, Eosinophils # (Auto) 0.0, Basophils # (Auto) 0.0, Nucleated Red Blood Cells % (auto) 0.0, Anion Gap 6L, Glomerular Filtration Rate 18.5L, Calcium Level 8.1L, Magnesium Level 1.9 07/15/20 07:57: Lab Scanned Report Miscellaneous Lab CBC/BMP Laboratory Tests 07/14/20 12:19 07/14/20 18:09 07/14/20 23:44 07/15/20 04:40 Microbiology Microbiology 07/13/20 Blood Culture - Preliminary, Resulted No growth after 24 hours . All specim... 07/13/20 Blood Culture - Preliminary, Resulted No growth after 24 hours . All specim... Discharge Medications Scheduled Amlodipine Besylate (Amlodipine Besylate) 5 Mg Tablet, 5 MG PO DAILY, (Reported) Cefdinir (Cefdinir) 300 Mg Capsule, 300 MG PO DAILY Ferrous Gluconate (Ferrous Gluconate) 324 Mg Tablet, 324 MG PO DAILY, (Reported) Folic Acid/Vit B Complex and C (Candice-Leslie Tablet) 0.8 Mg Tablet, 1 TAB PO DAILY, (Reported) Furosemide (Furosemide) 20 Mg Tablet, 20 MG PO DAILY, (Reported) Losartan Potassium (Losartan Potassium) 50 Mg Tablet, 50 MG PO QHS, (Reported) Metoprolol Succinate (Metoprolol Succinate) 100 Mg Tab.er.24h, 100 MG PO DAILY, (Reported) Metronidazole (Flagyl) 500 Mg Tablet, 500 MG PO Q8H FOR 8 DAYS and f/u with Dr. Augustin Pantoprazole Sodium (Pantoprazole Sodium) 40 Mg Tablet.dr, 40 MG PO DAILY, (Reported) Prednisone (Prednisone) 50 Mg Tablet, 50 MG PO DAILY f/u with Dr. Augustin Sevelamer Carbonate (Renvela) 800 Mg Tablet, 800 MG PO AC, (Reported) Scheduled PRN Acetaminophen (Acetaminophen) 500 Mg Tablet, 500 MG PO BID PRN for PAIN, (Reported) Nitroglycerin (Nitrostat) 0.4 Mg Tab.subl, 0.4 MG SL NITRO PRN for CHEST PAIN, (Reported) Allergies Coded Allergies: Penicillins (Verified Allergy, Intermediate, RASH, 04/26/20) clarithromycin (Verified Allergy, Intermediate, rash, 01/08/20) isotretinoin (Verified Allergy, Mild, 02/28/20) cortisone (Verified Allergy, Unknown, 01/08/20) lisinopril (Verified Allergy, Unknown, 01/08/20) warfarin (Verified Adverse Reaction, Intermediate, HALLUCINAIONS, 07/07/20) Beckie Black DO Jul 15, 2020 08:52
--- NOTE | 2020-07-15 10:22 | IPNPDOC ---
Subjective Date Seen The patient was seen on 07/15/20. Subjective Chief Complaint/HPI Pt was seen at bedside this am and resting comfortably in bed without any acute distress. States she got dialyzed yesterday and she feels much better. Denies any further episodes of hemotypsis and epistaxis. She states that Dr. Shultz (ENT) doctor did see her yesterday but left b/c she was in a procedure. She denies any bright red blood or maroon colored stools. Denies BP, SOB, abdominal pain. States she feels less fatigued and overall feels better compared to prior days. No acute events overnight. REVIEW OF SYSTEMS: Constitutional: Denies weight loss, has decreased appetite, or recent trauma Eyes: No visual changes or eye pain Ears, Nose, Throat: Denies nose bleeds since yesterday, or difficulty swallowing, feels some tingling in throat Cardiovascular: Denies chest pain, sweating, or orthopnea Respiratory: Denies wheezing, or shortness of breath, admits to chronic non- productive cough GI: Guevara nausea, vomiting, abdominal pain, diarrhea or constipation : Denies pain with urination or frequency Musculoskeletal: denies muscle stiffness, or weakness Neuro / Psych: Denies muscle weakness or sensory loss Skin: No skin rashes noted PHYSICAL EXAMINATION: VITAL SIGNS:see below GENERAL APPEARANCE: Malnourished, very thin elderly female laying in bed, calm, cooperative, NAD HEENT: NC/AT, EOMI, PERRL, MMM CARDIOVASCULAR: distant s2 and S2 without audible rubs/gallops or murmurs, RRR LUNGS: Clear to auscultation bilaterally, no adventitious breath sounds ABDOMEN: soft, nontender, nondistended, no obvious organomegaly, masses or hernia. MUSCULOSKELETAL: moves all extremities well EXTREMITIES: no clubbing/cyanosis/edema NEUROLOGICAL: No obvious focal deficits PSYCHIATRIC: Awake, alert and oriented only to time and person, not to place. 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 In the ER, she also had a bp of 188/103 and stated that she had some associated blurring of her vision that has now resolved. Plan/VTE VTE Prophylaxis Ordered?: Yes (SCD/TEDs ) Plan - Suspected Hemoptysis, possibly 2/2 aspiration of blood, possibly 2/2 PNA - possibly 2/2 aspiration, possibly 2/2 vasculitis - No episodes since admission. Will get ENT consult- appreciate recommendations - Continue Solumedrol to 60 IV q6h (re: Vasculitis) - Coverage for Aspiration PNA: Moxifloxacin 400mg IV q24h (07/14- 07/18)- DAY 2 - Anemia of chronic disease:H/H was trended yesterday and stable H/H today .7.3 - Will get swallow study completed - Will continue to monitor CBC and CMP closely - ESRD: Consulted Nephrology- dialysis today again per nephrology - Uncontrolled HTN: Improved. Continue current regimen (Norvasc, metoprolol and losartan) - Continue home dose of lasix 20mg daily - Vitamin D def: Continue home meds - Hx of paroxysmal Afib: currently in sinus rhythm- on telemetry. No anticoags at this time 2/2 to active hemoptysis; Patient is not on ASA - Severe protein calorie malnutrition; BMI of 16; severe muscle wasting DVT ppx: TEDs/SCDs GI ppx: Protonix 40mg PO daily Code status: Full Consultations: Nephrology (Dr. Augustin) ENT (Dr. Shultz) Disposition: Pending recommedations from ENT. Dr. Augustin wants to keep patient one more day. Possible discharge tomorrow. VS, I&O, 24H, Fishbone Vital Signs/I&O Vital Signs Date Time Temp Pulse Resp B/P (MAP) Pulse Ox O2 Delivery O2 Flow Rate FiO2 07/15/20 08:00 98.3 75 16 154/84 (107) 98 Room Air I&O- Last 24 Hours up to 6 AM 07/15/20 05:59 Intake Total 1170 ml Output Total 1000 ml Balance 170 ml Laboratory Data 24H LABS Laboratory Tests 2 07/14/20 15:00: Hepatitis B Surface Antigen NEGATIVE, Hepatitis B Surface Antibody NEGATIVE, Hepatitis B Core IgG Antibody Negative, Hepatitis B Core IgM Antibody NEGATIVE, Hepatitis C Antibody Index 0.2 07/15/20 04:40: Immature Granulocyte % (Auto) 0.8, Neutrophils (%) (Auto) 93.9H, Lymphocytes (%) (Auto) 3.8L, Monocytes (%) (Auto) 1.4, Eosinophils (%) (Auto) 0.0, Basophils (%) (Auto) 0.1, Neutrophils # (Auto) 11.1H, Lymphocytes # (Auto) 0.5L, Monocytes # (Auto) 0.2, Eosinophils # (Auto) 0.0, Basophils # (Auto) 0.0, Nucleated Red Blood Cells % (auto) 0.0, Anion Gap 6L, Glomerular Filtration Rate 18.5L, Calcium Level 8.1L, Magnesium Level 1.9 07/15/20 07:57: Lab Scanned Report Miscellaneous Lab CBC/BMP Laboratory Tests 07/14/20 12:19 07/14/20 18:09 07/14/20 23:44 07/15/20 04:40 Microbiology Microbiology 07/13/20 Blood Culture - Preliminary, Resulted No growth after 24 hours . All specim... 07/13/20 Blood Culture - Preliminary, Resulted No growth after 24 hours . All specim... GME ATTESTATION GME ATTESTATION My faculty preceptor for this patient encounter was physically present during the encounter and was fully available. All aspects of the patient interview, exa mination, medical decision making process, and medical care plan development were reviewed and approved by the faculty preceptor. The faculty preceptor is aware and concurs with the plan as stated in the body of this note and will attest to such by his/her cosignature. ATTENDING NOTE I, Tommy Roberts, have independently examined this patient and performed my own physical exam, as well as reviewed the documentation and edited where necessary. I have discussed in detail with the resident / student the findings and plan of treatment as documented by the resident / student and edited their note. I agree with their findings and treatment plan and have edited their documentation. I will continue to follow the patient during this hospital stay. Beckie Black DO Jul 15, 2020 10:22 TOMMY ROBERTS MD Jul 15, 2020 17:04
[2020-07-15] MEDS: PANTOPRAZOLE 40MG TAB (PROTONIX) PO SCH (10:27)
[2020-07-15] MEDS: FERROUS GLUCONATE 324 MG TAB PO SCH (10:28)
[2020-07-15] MEDS: METOPROLOL SUCC (TopROL XL) 100MG *XL* TAB PO SCH (10:28)
[2020-07-15] MEDS: FUROSEMIDE 20 MG TAB PO SCH (10:30)
[2020-07-15] MEDS: MOXIFLOXACIN HCL 400 MG in IV 1 EA IV SCH (11:41)
--- NOTE | 2020-07-15 11:44 | IPNPDOC ---
Text Note Date of Service The patient was seen on 07/15/20. NOTE 79 yo being evaluated for hemoptysis She states she has had some clots in her right nares but NO active bleeding anterior or posteriorly in the nose She denies throat pain or globus. she has no odynophagia She states that bleeding occurs more typically right after a cough EXAM No active bleeding NARES by endoscope is clear there is no sign of old or new blood and no pa thology noted to account for bleeding NASOPHARYNX clear OC/OP/Tongue No lesions seen Flexible Laryngoscopy shows no fresh blood or structural abnormalities to account for bleeding IMP Hemoptysis not from upper airway REC complete pulmonary work up VS,Ghada, I+O VS, Ghada, I+O Laboratory Tests 07/14/20 12:19 07/14/20 18:09 07/14/20 23:44 07/15/20 04:40 Vital Signs Date Time Temp Pulse Resp B/P (MAP) Pulse Ox O2 Delivery O2 Flow Rate FiO2 07/15/20 08:00 98.3 75 16 154/84 (107) 98 Room Air I&O- Last 24 Hours up to 6 AM 07/15/20 05:59 Intake Total 1170 ml Output Total 1000 ml Balance 170 ml JACE SALCIDO MD Jul 15, 2020 11:44
[2020-07-15 12:00] VITALS: BP 138/80
[2020-07-15 14:04] LABS: C REACTIVE PROTEIN QUANTITATIV 1.18 MG/DL (0.00-0.30)
[2020-07-15 15:43] VITALS: BP 150/80
[2020-07-15 20:00] VITALS: BP 129/73
[2020-07-15] MEDS: LOSARTAN 50MG TABLET PO SCH (20:56)
[2020-07-16] VITALS: BP 131/82
[2020-07-16] MEDS: methylPREDNISolone 125MG 2ML VIAL IV SCH (02:08)
[2020-07-16] MEDS: SLF 3 ML SYR IV SCH (02:09)
[2020-07-16 04:00] VITALS: BP 154/80
[2020-07-16 05:44] LABS: BASO % 0.1 % (0.0-1.0); HEMATOCRIT 28.4 % (36.0-47.0); HEMOGLOBIN 9.2 g/dl (12.0-15.5); LYMPH # 0.5 10^3/uL (1.5-5.0); LYMPH % 3.6 % (24.0-44.0); MEAN CORPUSCULAR HEMOGLOBIN 29.8 pg (27.0-33.0); MEAN CORPUSCULAR HGB CONC 32.4 g/dl (32.0-36.5); MEAN CORPUSCULAR VOLUME 91.9 fl (80.0-96.0); MONO # 0.5 10^3/uL (0.0-0.8); MONO % 3.1 % (0.0-5.0); NEUTROPHILS # 13.5 10^3/uL (1.5-8.5); PLATELET COUNT, AUTOMATED 197 10^3/uL (150-450); RED BLOOD COUNT 3.09 10^6/uL (4.00-5.40); WHITE BLOOD COUNT 14.7 10^3/uL (4.0-10.0)
[2020-07-16 06:14] LABS: C REACTIVE PROTEIN QUANTITATIV 0.92 MG/DL (0.00-0.30); CREATININE FOR GFR 4.41 MG/DL (0.55-1.30); GLOMERULAR FILTRATION RATE 10.3 (>39); MAGNESIUM LEVEL 1.9 MG/DL (1.8-2.4); POTASSIUM SERUM 4.8 MEQ/L (3.5-5.1)
[2020-07-16 06:23] VITALS: BP 140/77
[2020-07-16] MEDS: FUROSEMIDE 20 MG TAB PO SCH (06:23)
[2020-07-16] MEDS: amLODIPine 5 MG TAB PO SCH (06:23)
[2020-07-16] MEDS: METOPROLOL SUCC (TopROL XL) 100MG *XL* TAB PO SCH (06:23)
[2020-07-16] MEDS: PANTOPRAZOLE 40MG TAB (PROTONIX) PO SCH (06:23)
[2020-07-16] MEDS: FERROUS GLUCONATE 324 MG TAB PO SCH (06:24)
--- NOTE | 2020-07-16 07:35 | DS.PDOC ---
Discharge Summary General Date of Admission Jul 13, 2020 at 18:07 Date of Discharge 07/16/2020 Attending Physician: TOMMY ROBERTS MD Specialist/Consultants Involve: JACE SALCIDO MD Discharge Summary PROCEDURES PERFORMED DURING STAY: Laryngoscopy ADMITTING DIAGNOSES / DISCHARGE DIAGNOSES: Hemoptysis - likely 2/2 pneumonia -possibly 2/2 aspiration, possibly 2/2 vasculitis, less likely 2/2 aspiration of blood ESRD Uncontrolled HTN Vitamin D deficiency Hx of paroxysmal Afib Severe protein calorie malnutrition DVT prophylaxis COMPLICATIONS/CHIEF COMPLAINT: Coughing blood HOSPITAL COURSE and HPI : Pt is a 79 y/o female with a hx of ESR on hemodialysis on M, W, F, paroxysmal afib, microscopic polyangiitis ddx in 1998, and vitamin D deficiency, presents to [facility] ER after she started coughing up bright red blood with quarter sized clots this morning. She states that she was getting ready to go dialysis when she started to cough up the blood. She states that this is the second time she has coughed up blood like this, the last time was 07/09/2020. She states that she can feel a tingling sensation prior to the spurts of cough and there were copious amounts of blood that some went up her nose and had swallowed a lot of the blood as well which is making her nauseated. Pt states that she had been diagnosed of the vasculitis in 1998 at [facility] [[email or web address]] and took mycophenolate for 2 years and was in remission until 2004. She started back on the mycophenolate until a year ago because she had some side effects and stopped taking it. In the ER, patient's bp is 188/103 and patient states mild blurry vision prior to arriving in the ER but has since resolved. She states she's compliant with dialysis and her last session was last Monday; she also states she's complaint with her bp meds (norvasc) and metoprolol, but has not taken her meds today yet due to hemopytsis. There's no associated fever, chills, palpitations, lightheadeness, dizziness or falls. She does have mild shortness of breath. ENT was consulted and a flexible Laryngoscopy shows no fresh blood or structural abnormalities to account for bleeding. Patient's hemoptysis was suspected to be 2/2 to PNA and is being covered with Moxifloxacin. During hospitalization, patient was dialyzed twice and nephrology followed closely. Her H/H has been stable throughout hospitalization and she did not experience any episodes of hemoptysis. On discharge, pt was instructed to follow up with ENT and PCP within 7 days. She's been prescribed Cefdinir and flagyl PO to take for 8 more days. She's also been prescribed prednisone. Patient is instructed that if her conditions worsen that she is to report to her nearest ER. DISCHARGE MEDICATIONS: Please see below. ALLERGIES: Please see below. PHYSICAL EXAMINATION ON DISCHARGE: Vitals (See below) General: Sitting up in bed, no acute distress, comfortable, AAOx3 HEENT: NC, AT CVS: +S1S2 Lungs: Fair air entry b/l, -w/r/r Abdomen: Soft, ND, NT Extremities: No evidence of LE edema, - Calf tenderness LABORATORY DATA: Please see below. IMAGING: CXR: 1. Worsened right mid and lower lung airspace disease compared to 07/07/2020. Infectious pneumonia, aspiration pneumonia, and pulmonary hemorrhage are considerations. There may be an element of right middle lobe atelectasis. Pulmonary neoplasm is not excluded. 2. Findings suggestive of COPD. PROGNOSIS: Stable ACTIVITY: As tolerated DIET: Consistent carb diet DISCHARGE INSTRUCTIONS: Follow up with PCP within 7 days of hospital discharge DISCHARGE CONDITION: Stable TIME SPENT ON DISCHARGE: 35 minutes. Vital Signs/I&Os Vital Signs Date Time Temp Pulse Resp B/P (MAP) Pulse Ox O2 Delivery O2 Flow Rate FiO2 07/16/20 06:23 72 140/77 07/16/20 04:00 97.4 16 96 Room Air I&O- Last 24 Hours up to 6 AM 07/16/20 06:00 Intake Total 720 ml Output Total 0 ml Balance 720 ml Laboratory Data Labs 24H Laboratory Tests 2 07/15/20 07:57: Lab Scanned Report Miscellaneous Lab 07/16/20 05:20: Immature Granulocyte % (Auto) 1.2, Neutrophils (%) (Auto) 92.0H, Lymphocytes (%) (Auto) 3.6L, Monocytes (%) (Auto) 3.1, Eosinophils (%) (Auto) 0.0, Basophils (%) (Auto) 0.1, Neutrophils # (Auto) 13.5H, Lymphocytes # (Auto) 0.5L, Monocytes # (Auto) 0.5, Eosinophils # (Auto) 0.0, Basophils # (Auto) 0.0, Nucleated Red Blood Cells % (auto) 0.0, Anion Gap 8, Glomerular Filtration Rate 10.3L, Calcium Level 8.0L, Magnesium Level 1.9, C-Reactive Protein, Quantitative 0.92H CBC/BMP Laboratory Tests 07/16/20 05:20 Microbiology Microbiology 07/13/20 Blood Culture - Preliminary, Resulted No Growth after 48 hours. All Specime... 07/13/20 Blood Culture - Preliminary, Resulted No Growth after 48 hours. All Specime... Discharge Medications Scheduled Amlodipine Besylate (Amlodipine Besylate) 5 Mg Tablet, 5 MG PO DAILY, (Reported) Cefdinir (Cefdinir) 300 Mg Capsule, 300 MG PO DAILY Ferrous Gluconate (Ferrous Gluconate) 324 Mg Tablet, 324 MG PO DAILY, (Reported) Folic Acid/Vit B Complex and C (Candice-Leslie Tablet) 0.8 Mg Tablet, 1 TAB PO DAILY, (Reported) Furosemide (Furosemide) 20 Mg Tablet, 20 MG PO DAILY, (Reported) Losartan Potassium (Losartan Potassium) 50 Mg Tablet, 50 MG PO QHS, (Reported) Metoprolol Succinate (Metoprolol Succinate) 100 Mg Tab.er.24h, 100 MG PO DAILY, (Reported) Metronidazole (Flagyl) 500 Mg Tablet, 500 MG PO Q8H FOR 8 DAYS and f/u with Dr. Augustin Pantoprazole Sodium (Pantoprazole Sodium) 40 Mg Tablet.dr, 40 MG PO DAILY, (Reported) Prednisone (Prednisone) 50 Mg Tablet, 50 MG PO DAILY f/u with Dr. Augustin Sevelamer Carbonate (Renvela) 800 Mg Tablet, 800 MG PO AC, (Reported) Scheduled PRN Acetaminophen (Acetaminophen) 500 Mg Tablet, 500 MG PO BID PRN for PAIN, (Reported) Nitroglycerin (Nitrostat) 0.4 Mg Tab.subl, 0.4 MG SL NITRO PRN for CHEST PAIN, (Reported) Allergies Coded Allergies: Penicillins (Verified Allergy, Intermediate, RASH, 04/26/20) clarithromycin (Verified Allergy, Intermediate, rash, 01/08/20) isotretinoin (Verified Allergy, Mild, 02/28/20) cortisone (Verified Allergy, Unknown, 01/08/20) lisinopril (Verified Allergy, Unknown, 01/08/20) warfarin (Verified Adverse Reaction, Intermediate, HALLUCINAIONS, 07/07/20) GME ATTESTATION GME ATTESTATION My faculty preceptor for this patient encounter was physically present during the encounter and was fully available. All aspects of the patient interview, examination, medical decision making process, and medical care plan development were reviewed and approved by the faculty preceptor. The faculty preceptor is aware and concurs with the plan as stated in the body of this note and will attest to such by his/her cosignature. ATTENDING NOTE I, Tommy Roberts, have independently examined this patient and performed my own physical exam, as well as reviewed the documentation and edited where necessary. I have discussed in detail with the resident / student the findings and plan of treatment as documented by the resident / student and edited their note. I agree with their findings and treatment plan and have edited their documentation. I will continue to follow the patient during this hospital stay. Time spent on discharge 37 minutes Beckie Black DO Jul 16, 2020 07:35 TOMMY ROBERTS MD Jul 16, 2020 13:03
[2020-07-16] MEDS: (RENVELA) SEVELAMER **CARBONate** 800 MG TAB PO SCH ×2 (07:45→12:56)
[2020-07-16 08:00] VITALS: BP 133/70
[2020-07-16] MEDS ORDERED: predniSONE 50 MG TAB PO SCH (09:00)
[2020-07-16] MEDS ORDERED: MOXI1TAB PO (11:23)
[2020-07-16] MEDS ORDERED: PRED50TA PO (11:23)
[2020-07-16 12:00] VITALS: BP 158/78
[2020-07-16] MEDS: MOXIFLOXACIN HCL 400 MG in IV 1 EA IV SCH (12:56)
[2020-07-16] MEDS ORDERED: CEFD300CAP PO (13:28)
[2020-07-16] MEDS ORDERED: FLAG500T PO (13:28)
--- NOTE | 2020-07-22 10:07 | CR ---
DATE OF CONSULTATION: 07/14/2020 CONSULTATION REQUESTED BY: Beckie Black D.O. REASON FOR CONSULTATION: To assist in the management of end-stage renal disease. HISTORY OF PRESENT ILLNESS: Mrs. Ocampo is a 79-year-old female with known history of end-stage renal disease, hypertension, paroxysmal atrial fibrillation, microscopic polyangiitis and history of recurrent hemoptysis. She presented to the Emergency Room with hemoptysis again. She was admitted last evening. Her blood pressure was also quite high on arrival, which has now improved with medications. A nephrology consultation was requested as patient missed her dialysis yesterday. PAST MEDICAL HISTORY: Significant for: 1. History of longstanding hypertension. 2. Microscopic polyangiitis. 3. History of paroxysmal atrial fibrillation. 4. History of end-stage renal disease. 5. History of Vitamin D deficiency. 6. History of anemia. PAST SURGICAL HISTORY: Significant for Permacath placement. FAMILY HISTORY: Noncontributory and unremarkable. PERSONAL AND SOCIAL HISTORY: Patient lives alone. She has two grown sons. She denies any alcohol or drug or tobacco use. REVIEW OF SYSTEMS: Patient denies any headache at present. She reports nose bleeds with clots and also reports coughing up blood and blood clots. Eyes, ears and throat is unremarkable. CARDIOVASCULAR: Significant for uncontrolled hypertension. She denies any dyspnea or leg edema. RESPIRATORY: Significant for cough with hemoptysis. Chest x-ray did show some pulmonary infiltrates. GI: Negative for nausea, vomiting or diarrhea. : Negative for dysuria or hematuria. She has end-stage renal disease. MUSCULOSKELETAL: Significant for generalized weakness and back pain. She has severe kyphoscoliosis. ENDOCRINE: Negative for diabetes or thyroid problems. HEMATOLOGIC: Significant for chronic anemia. She has not been on anticoagulation. NEUROLOGIC: Negative for seizures or stroke. SKIN: Negative for rash or ulcers. PHYSICAL EXAMINATION: Patient is sitting in the bed at the time of my visit and not in any acute distress. Temperature 97.5 degrees Fahrenheit, heart rate 72 per minute, respiratory rate 18, blood pressure now 146/80 mmHg and oxygen saturation 97% on room air. Head is atraumatic. Neck is supple and JVD mildly elevated. At present, there is no active nose bleed and oral mucosa is moist and healthy. She is using dentures. Heart exam reveals regular S1 and S2 with a systolic murmur grade 2/6. Lungs with a few scattered rhonchi. Abdomen is soft and nontender, bowel sounds are normal. There is no palpable organomegaly. Extremities without any cyanosis or clubbing. On her right upper chest, she has a Permacath without any signs of infection. Neurologically, she is awake, alert and at her baseline mentation. LABORATORY DATA: On admission, WBC 15.4, hemoglobin 11.1, hematocrit 33.5, platelets 232,000. Sodium 139, potassium 3.9, BUN 85, creatinine 4.43. AST 17, ALT 29, total protein 5.0, albumin 2.5 today. PROBLEMS: 1. End-stage renal disease: Patient is regularly dialyzed on Monday, Monday, Monday schedule. She did miss her dialysis yesterday and we will plan to dialyze her today. Her electrolytes are within normal range and volume status seems to be reasonably well compensated. 2. Hemoptysis: She does have a history of microscopic polyangiitis. I discussed with the Emergency Room physician and recommended intravenous steroids in addition to antibiotics. She has been on Solu-Medrol 125 mg every 6 hours. Her hemoptysis has already been stopped. There is possibility that she has nose bleed, which she is swallowing and then coughing up. I agree with ENT evaluation. 3. Hypertension: Blood pressure has improved with medications and should continue with the same. 4. Pulmonary infiltrates: Concerned about possibility of infection versus vasculitis. She has a history of microscopic polyangiitis. At present, I would recommend to continue with antibiotics and steroids. We will see what ENT feels about her nose bleed and possibility of coughing up blood which is coming from the nose. Thank you for involving me in the care of Mrs. Ocampo. I will follow her along with you. KIMBERLY
--- NOTE | 2020-07-22 10:11 | IPN ---
DATE: 07/15/2020 SUBJECTIVE: Mrs. Ocampo is seen this morning at her bedside. She is feeling well and denies anymore nosebleed or hemoptysis. She had dialysis yesterday. Patient denies any dyspnea, chest pain, nausea or vomiting. PHYSICAL EXAMINATION: VITAL SIGNS: Temperature 98.3 degrees Fahrenheit, heart rate is 75 per minute and respiratory rate is 16 per minute, blood pressure is 154/84 mmHg and oxygen saturation 98% on room air. HEENT: Head is atraumatic. NECK: Supple and without thyroid enlargement. JVD is mildly elevated. HEART: Regular. There is no pericardial friction rub. LUNGS: Clear to auscultation. ABDOMEN: Soft and nontender. Bowel sounds are normal. EXTREMITIES: Without any cyanosis or clubbing. NEUROLOGIC: She is sat her baseline mentation. LABORATORY DATA: Todays labs showed a WBC count of 11.8, hemoglobin 9.7 and hematocrit 29.3, platelets 195,000. Sodium 136, potassium 4.3, CO2 28, BUN 34 and creatinine 2.66. PROBLEMS: 1. Endstage renal disease, patient was dialyzed yesterday and next dialysis will be due tomorrow. As an outpatient, she is regularly dialyzed on Monday, Monday, and Monday schedule. 2. Hemoptysis. Her symptoms have improved. I suspect she was more likely having nosebleed which was going back into her throat and then got swallowed. We are awaiting for an ENT evaluation. I think we can stop her systemic steroids at this point as we are not sure if the bleeding is coming from the nose or from the lungs. 3. Hypertension. Blood pressure control remains optimal on current medication which should be continued. 4. Anemia. Her anemia is stable and will continue to monitor closely. There is no indication for a transfusion. 5. Disposition: I have discussed with the patient and advised her to stay here until the source of the bleeding is identified as this is her second admission for the same problem. KIMBERLY
--- NOTE | 2020-07-22 10:13 | IPN ---
DATE: 07/16/2020 SUBJECTIVE: Mrs. Ocampo is seen this morning during hemodialysis. She is feeling better and denies any nose bleed or hemoptysis. She has no dyspnea or chest pain at present. She denies any nausea or vomiting. PHYSICAL EXAMINATION: VITAL SIGNS: Temperature 97.7 degrees Fahrenheit, heart rate 64 per minute, respiratory rate 16 per minute, blood pressure 133/70 mmHg and oxygen saturation 94% on room air. HEENT: Head is atraumatic. NECK: Supple and without JVD or thyroid enlargement. HEART: Regular. LUNGS: A few scattered rhonchi. ABDOMEN: Soft and bowel sounds are normal. EXTREMITIES: Without any cyanosis or clubbing. She has a Permacath in right upper chest, which is being used for dialysis. LABORATORY DATA: Todays labs show WBC 14.7, hemoglobin 9.2, hematocrit 28.4. Sodium 132, potassium 4.8, BUN 61 and creatinine 4.41. Glucose 161 and calcium 8.0. C-reactive protein 0.92. PROBLEMS: 1. End-stage renal disease: Patient is being dialyzed today and she is tolerating dialysis treatment very well so far. 2. Hemoptysis and nose bleed: She most likely had recurrent nose bleed that she was aspirating and then coughing. She did not have any recurrence since admission. We will continue to monitor. 3. Pneumonia: She is physically improved and clinically asymptomatic at present. She has been on Avelox 400 mg daily. I would suggest to stop her steroids and continue with antibiotic. 4. Hypertension: Blood pressure seems well controlled on current medications. No changes are being made today. 5. Anemia: Her anemia is slightly worse since admission, but no active bleeding noticed. Will continue to monitor her closely. [facility]
[2020-08-07] MEDS ORDERED: PRED10TA2 PO (12:53)
== END 2020-07-16 15:29 | disposition home health service (06) | DRG 193 ==
LOC: M ED 14:31 → M ED INP 18:07 → M PCU 21:40
PROVIDERS: ADMIT Internal Medicine; ATTEND Internal Medicine
PROC: 5A1D70Z Performance of Urinary Filtration, Intermittent, Less than 6 Hours Per Day (ICD-10-PCS; principal; 2020-07-14)
PROC: 0CJS8ZZ Inspection of Larynx, Via Natural or Artificial Opening Endoscopic (ICD-10-PCS; 2020-07-15)
DX: J18.9 Pneumonia, unspecified organism (principal); N18.6 End stage renal disease; E43 Unspecified severe protein-calorie malnutrition; R04.2 Hemoptysis; M31.7 Microscopic polyangiitis; I12.0 Hypertensive chronic kidney disease with stage 5 chronic kidney disease or end stage renal disease; Z68.1 Body mass index [BMI] 19.9 or less, adult; I48.0 Paroxysmal atrial fibrillation; E55.9 Vitamin D deficiency, unspecified; D63.1 Anemia in chronic kidney disease; Z79.899 Other long term (current) drug therapy; Z99.2 Dependence on renal dialysis; Z88.0 Allergy status to penicillin; Z88.1 Allergy status to other antibiotic agents; Z88.8 Allergy status to other drugs, medicaments and biological substances

== ENCOUNTER → 2020-07-29 | Outpatient (CLI) | payer MEDICARE, MEDICAID ==
[~2020-07-29] MED LIST changes: +CEFD300CAP PO; +FLAG500T PO; +OXYC1TAB23 PO; +PRED50TA PO
--- NOTE | 2020-08-03 11:55 | REP ---
CHEST X-RAY: TWO-VIEWS HISTORY: Essential hypertension. COMPARISON: 07/13/2020 and 07/07/2020. FINDINGS: The lungs are hyperinflated and free of infiltrate. There is mild linear fibrosis in the left base. A tunneled catheter is noted in the mediastinum in the expected location of the superior vena cava (SVC) right atrial junction unchanged. Heart is not felt to be enlarged. Pleural angles are sharp. The thoracic aorta is somewhat tortuous. IMPRESSION: Hyperinflation consistent with chronic obstructive pulmonary disease (COPD). Linear fibrosis left base. Otherwise no acute disease. The previously noted right perihilar density seen on 07/07/2020 has resolved. MTDD
== END ==
LOC: M CLY 11:17
PROVIDERS: ATTEND Family Medicine
DX: I10 Essential (primary) hypertension (principal)
CPT/HCPCS: 71046; G0463

== ENCOUNTER → 2020-08-06 | Outpatient (CLI) | payer MEDICARE, MEDICAID | LOC: M LABSMTC 09:52 | PROVIDERS: ATTEND Anesthesiology | DX: Z01.812 Encounter for preprocedural laboratory examination (principal); Z20.828 Contact with and (suspected) exposure to other viral communicable diseases | CPT/HCPCS: C9803; U0003 ==

== ENCOUNTER → 2020-08-10 | Outpatient (CLI) | payer MEDICARE, MEDICAID ==
--- NOTE | 2020-08-10 16:51 | REP ---
INDICATION: ABNORMAL FINDING OF LUNG FIELD, HEMOPTYSIS COMPARISON: 07/07/2020, 01/08/2020 TECHNIQUE: Axial noncontrast images from the thoracic inlet to the upper abdomen with coronal and sagittal reformations. This CT examination was performed using the following dose reduction techniques: Automated exposure control, adjustment of mA and/or kv according to the patient's size, and use of iterative reconstruction technique. FINDINGS: Chronic COPD and emphysematous changes along with minimal scarring noted. Previously noted areas of multifocal pneumonia have essentially resolved with only very subtle minimal residual reticulonodular infiltrates in the basilar right upper lobe and apical right lower lobe. A small rounded nodule is identified in the medial right lower lobe measuring 8 mm and may also represent sequelae from prior infiltrate no pleural effusion. No pneumothorax. Tracheobronchial tree demonstrates mild chronic bronchiectasis. No obvious adenopathy. Stable atherosclerotic changes to the thoracic aorta and coronary arteries noted along with small pericardial effusion. Double lumen dialysis catheter identified with tip in the SVC/right atrium. Musculoskeletal structures demonstrate chronic scoliosis and degenerative changes. IMPRESSION: 1. Essentially near complete resolution to the previously noted multifocal consolidations and pleural effusions. Only minimal residual changes are identified in the right lung. Follow-up to complete resolution may be warranted as a small 8 mm residual nodule is identified in the medial right lower lobe. <Electronically signed by Driss Richardson > 08/10/20 [id number]
== END ==
LOC: M RAD 16:02
PROVIDERS: ATTEND Internal Medicine Pulmonary Disease
DX: R91.8 Other nonspecific abnormal finding of lung field (principal); R04.2 Hemoptysis

== ENCOUNTER 2020-08-11 10:12 | Day surgery (SDC) | payer MEDICARE, MEDICAID ==
[~2020-08-11] VITALS: Ht 165.1 cm; Wt 48.0 kg
[~2020-08-11 10:12] MED LIST changes: +BUPIVACAINE/EPIN 0.5% 30 ML VIAL As Ordered ONE; +D5W/0.2% SODIUM CHLORIDE 1,000 ML IV ONE; +ISOVUE-300 61% 50ML VIAL As Ordered ONE; +LIDOCAINE 1% SDV 30ML VIAL As Ordered ONE; -OXYC1TAB23 PO; +VANCOMYCIN HCL 1,000 MG, VIAL MATE ADAPTER 1 EACH in D5W 250 ML IV ONE
[2020-08-11] MEDS ORDERED: HEPARIN SOD (PORCINE) 5000UNITS/ML 1ML VIAL/SYRINGE As Ordered ONE (10:13)
[2020-08-11] MEDS ORDERED: FURO20TA2 PO (10:58)
[2020-08-11 11:03] LABS: POTASSIUM SERUM 4.9 MEQ/L (3.5-5.1)
[2020-08-11 11:38] LABS: CALCIUM LEVEL 7.8 MG/DL (8.8-10.2); CREATININE FOR GFR 4.84 MG/DL (0.55-1.30); GLOMERULAR FILTRATION RATE 9.3 (>39)
[2020-08-11] MEDS ORDERED: LIDOCAINE 2% 100MG/5ML SDV (FOR ANES.) As Ordered ONE (12:10)
[2020-08-11] MEDS ORDERED: MIDAZOLAM INJ 2MG/2ML VIAL (J2250 PER 1MG) As Ordered ONE (12:10)
[2020-08-11] MEDS ORDERED: KETAMINE HCL 200 MG/20 ML VIAL As Ordered ONE (12:10)
[2020-08-11] MEDS ORDERED: fentaNYL 100 MCG/2 ML INJECTION (J3010) As Ordered ONE (12:10)
[2020-08-11] MEDS ORDERED: propofoL 200 MG/20 ML VIAL As Ordered ONE (12:10)
[2020-08-11] MEDS ORDERED: OXYC1TAB23 PO (13:34)
--- NOTE | 2020-08-11 13:41 | ROOPDOC ---
[facility] Report Of Operation Report of Operation DATE OF PROCEDURE: 08/11/20 PREPROCEDURE DIAGNOSES: Renal failure requiring access for dialysis POSTPROCEDURE DIAGNOSES: Same PROCEDURE: Right brachial basilic AV fistula creation SURGEON: Corona Jean MD ANESTHESIA: Monitored anesthesia care and local anesthesia INDICATION FOR PROCEDURE: This a very pleasant 79-year-old patient with renal failure requiring access for dialysis. We reviewed her vein mapping and although the patient's veins in general are fairly diminutive in size, we felt she may have an option for an autologous fistula with a right brachial basilic AV fistula creation. Risks benefits and alternatives were explained to the patient and her family and they are agreeable to proceed. Informed consent was obtained. REPORT OF OPERATION: The patient was brought to the OR in stable condition. Monitored anesthesia care and antibiotics were administered without complication. Her right upper extremity was prepped and draped in a sterile fashion. A timeout was performed. Local anesthesia was administered to the skin and subcutaneous tissue 1 fingerbreadth below the antecubital crease on the right forearm. An incision was made and carried down to the subcutaneous tissue with Bovie cautery. The basilic vein was skeletonized proximally and distally within the incision. Branches were suture ligated and divided. A distal branch point was identified in both branches were divided. A bulldog clamp was placed on the basilic vein proximally and that ends of the vein was spatulated. Dilators were passed sequentially through the vein including a 3, 3.5, and 4 millimeter dilators. We then flushed the vein with heparinized saline. We continued our dissection down to the brachial artery which was skeletonized proximally and distally. A vessel loop was placed proximally and distally around the artery. The vessels were secured in a 4 mm arteriotomy was made. The vein was then anastomosed to the artery and an end-to-side fashion with running 6-0 Prolene suture. Before the final sutures are placed with flushed inflow and outflow of the artery as well as flushed the vein. Heparinized saline was used to irrigate anastomosis in the final sutures are placed. We restart flow through the vein and the inflow artery, and lastly to the hand. There was a good thrill in the basilic vein after fistula creation. Doppler confirm good flow through the vein, and we were able to palpate a strong pulse at the radial artery and her hand was warm and well-perfused. We irrigated her incision was saline. The deep tissues were approximated with interrupted Vicryl suture. The dermal layer was approximate with a running 4-0 Vicryl suture. The skin was closed with a running subcuticular Monocryl suture. Mastisol and Steri-Strips were placed the length of the incision. 2 x 2 gauze and Tegaderm were placed as a final dressing. The patient was allowed to awaken from anesthesia and taken to recovery in stable condition. She tolerated the procedure and the sedation well. ESTIMATED BLOOD LOSS: Approximately 5 mL. COMPLICATIONS: None. SPECIMEN: None. PLAN: It is okay for the patient to discharge today and we will see her back in clinic in a week to check her incision and her fistula flow. She is elderly, and will likely need a little bit extra time for her basilic vein to mature prior to transposition. I estimate between 6-8 weeks. If we do it to early, we risk losing the vein. Ideally we'd like her to have an autologous fistula, so we will be very careful determining when transposition is optimal. No strenuous exercise or lifting greater than 5 pounds for week. Okay to remove the Tegaderm and gauze after 24-48 hours believe the Steri-Strips intact 5-7 days to help with healing. Prescription for Percocet was sent to her pharmacy. We appreciate the opportunity to participate in the care of this patient. CORONA JEAN MD Aug 11, 2020 13:41
[2020-08-11 14:25] VITALS: BP 150/86
== END 2020-08-11 14:54 | disposition home or self-care (01) ==
LOC: M SDC 10:12
PROVIDERS: ATTEND Surgery Vascular Surgery
DX: N18.6 End stage renal disease (principal); I12.0 Hypertensive chronic kidney disease with stage 5 chronic kidney disease or end stage renal disease; I48.91 Unspecified atrial fibrillation; D63.1 Anemia in chronic kidney disease; N25.81 Secondary hyperparathyroidism of renal origin; M31.31 Wegener's granulomatosis with renal involvement; F41.9 Anxiety disorder, unspecified; F32.9 Major depressive disorder, single episode, unspecified; R51.9 Headache, unspecified; Z79.899 Other long term (current) drug therapy; Z88.0 Allergy status to penicillin; Z88.1 Allergy status to other antibiotic agents; Z88.8 Allergy status to other drugs, medicaments and biological substances; Z99.2 Dependence on renal dialysis
CPT/HCPCS: 36415; 36821; 80048; J1644; J2250; J3010; J3370

== ENCOUNTER → 2021-02-09 | Outpatient (CLI) | payer MEDICARE, MEDICAID ==
[~2021-02-09] MED LIST changes: -BUPIVACAINE/EPIN 0.5% 30 ML VIAL As Ordered ONE; -D5W/0.2% SODIUM CHLORIDE 1,000 ML IV ONE; -ISOVUE-300 61% 50ML VIAL As Ordered ONE; -LIDOCAINE 1% SDV 30ML VIAL As Ordered ONE; +OXYC1TAB23 PO; -VANCOMYCIN HCL 1,000 MG, VIAL MATE ADAPTER 1 EACH in D5W 250 ML IV ONE
--- NOTE | 2021-02-09 14:49 | REP ---
INDICATION: ABN FINDING OF LUNG COMPARISON: 08/10/2020, 07/07/2020 TECHNIQUE: Axial noncontrast images from the thoracic inlet to the upper abdomen with coronal and sagittal reformations. This CT examination was performed using the following dose reduction techniques: Automated exposure control, adjustment of mA and/or kv according to the patient's size, and use of iterative reconstruction technique. FINDINGS: Chronic emphysematous changes and scattered scarring are noted. Previously identified areas of consolidation and airspace disease have essentially resolved. Very subtle areas of bilateral perihilar opacities represent somewhat new finding compared with most recent prior exam dated 08/10/2020 and may represent very early or resolving acute pneumonia. Correlation with physical examination is recommended. No effusion. No pneumothorax. Tracheobronchial tree is patent with mild chronic bronchiectasis again noted. No obvious adenopathy. Atherosclerotic changes to the thoracic aorta and coronary arteries again noted and stable. Cardiomegaly is stable. No pericardial effusion. Musculoskeletal structures are intact and without acute osseous abnormality. Double-lumen dialysis catheter with tip in the right atrium. IMPRESSION: 1. Previously identified areas of consolidation have resolved. Small relatively new subtle areas of airspace disease in a bilateral midlung distribution may represent early or resolving pneumonic process. No discrete focal consolidation or effusion. 2. Underlying chronic emphysematous changes with scattered scarring and bronchiectasis. <Electronically signed by Driss Richardson > 02/09/21 [id number]
== END ==
LOC: M RAD 11:09
PROVIDERS: ATTEND Internal Medicine Pulmonary Disease
DX: R91.8 Other nonspecific abnormal finding of lung field (principal)

== ENCOUNTER → 2021-03-20 | Outpatient (CLI) | payer MEDICARE, MEDICAID | LOC: M LABSMTC 10:38 | PROVIDERS: ATTEND Anesthesiology | DX: Z01.812 Encounter for preprocedural laboratory examination (principal); Z11.52 Encounter for screening for COVID-19 ==

== ENCOUNTER 2021-03-25 06:18 | Day surgery (SDC) | payer MEDICARE, MEDICAID ==
[~2021-03-25] VITALS: Ht 165.1 cm; Wt 40.6 kg
[~2021-03-25 06:18] MED LIST changes: +VANCOMYCIN HCL 1,000 MG, VIAL MATE ADAPTER 1 EACH in NS 250 ML IV ONE
[2021-03-25] MEDS ORDERED: VANCOMYCIN 1000MG/20ML VIAL As Ordered ONE (07:11)
[2021-03-25 07:13] LABS: POTASSIUM SERUM 4.2 MEQ/L (3.5-5.1)
[2021-03-25] MEDS ORDERED: LIDOCAINE 2% 100MG/5ML SDV (FOR ANES.) As Ordered ONE (07:15)
[2021-03-25] MEDS ORDERED: propofoL 200 MG/20 ML VIAL As Ordered ONE (07:15)
[2021-03-25] MEDS ORDERED: ROCURONIUM BROMIDE 50 MG/5 ML VIAL As Ordered ONE (07:15)
[2021-03-25] MEDS ORDERED: ONDANSETRON 4MG/2ML VIAL As Ordered ONE (07:15)
[2021-03-25] MEDS ORDERED: dexameTHASONE 4 MG/ML 1ML VIAL (J1100 PER 1MG) As Ordered ONE (07:16)
[2021-03-25] MEDS ORDERED: ACETAMINOPHEN 1000MG 100ML IV BTL (OFIRMEV) (J0131 PER 10MG) As Ordered ONE (07:16)
[2021-03-25] MEDS ORDERED: fentaNYL 100 MCG/2 ML INJECTION (J3010) As Ordered ONE (07:17)
[2021-03-25] MEDS ORDERED: MIDAZOLAM INJ 2MG/2ML VIAL (J2250 PER 1MG) As Ordered ONE (07:17)
[2021-03-25] MEDS: LR 1,000 ML IV ONE (07:18)
[2021-03-25] MEDS: VANCOMYCIN HCL 1,000 MG, VIAL MATE ADAPTER 1 EACH in NS 250 ML IV ONE (07:18)
[2021-03-25] MEDS: BUPIVACAINE/EPIN 0.25% 30 ML VIAL As Ordered ONE (08:01)
[2021-03-25] MEDS: HEPARIN SOD (PORCINE) 5000UNITS/ML 1ML VIAL/SYRINGE As Ordered ONE (08:20)
[2021-03-25] MEDS ORDERED: OXYC1TAB23 PO (10:17)
[2021-03-25] MEDS ORDERED: fentaNYL 100 MCG/2 ML INJECTION (J3010) IV PRN (10:25)
[2021-03-25] MEDS ORDERED: ONDANSETRON 4MG/2ML VIAL IV PRN (10:25)
--- NOTE | 2021-03-25 10:25 | ROOPDOC ---
[facility] Report Of Operation Report of Operation DATE OF PROCEDURE: 03/25/21 PREPROCEDURE DIAGNOSES: End-stage renal disease and right brachial basilic AV fistula too deep for cannulation POSTPROCEDURE DIAGNOSES: Same PROCEDURE: Right brachial basilic AV fistula transposition SURGEON: Corona Jean MD ANESTHESIA: LMA anesthesia and local INDICATION FOR PROCEDURE: This is a very pleasant 80-year-old patient with end- stage renal disease currently dialyzing with a PermCath who has a right brachial basilic AV fistula that is too deep for cannulation. Risks benefits and alternatives to a basilic vein transposition were explained to the patient she is agreeable to proceed. Informed consent was obtained. REPORT OF OPERATION: The patient was brought to the operating room in stable condition and anesthesia and antibiotics were administered without complication. Her right upper extremity was prepped and draped in sterile fashion. A timeout was performed. Local anesthesia was administered to the skin and subcutaneous tissue over the basilic vein in the right upper extremity. Knife was used to make an incision over the basilic vein and this was carried down carefully through the subcutaneous tissue with Bovie cautery. We then used sharp dissection to dissected around the basilic vein, and care was taken to preserve the crossing nerves. Branches were suture ligated and divided. The patient had an extensive number of very small branches. We then used a tunneler to tunnel over the bicep. Bulldogs were placed proximally and distally on the basilic vein. The vein was transected on a beveled angle and the proximal aspect was attached to the tunneler with a Prolene suture. It was then tunneled over the bicep and the tunneler was removed. Care was taken not to twist the vein. We then flushed the vein was saline and it easily flushed. We then spatulated both ends of the vein and an end-to-end anastomosis with 6-0 Prolene suture. Before the final sutures were placed, we restored flow through the vein and carefully secured the suture to prevent a pursestring of the anastomosis. Following this, there was good hemostasis and good flow through the fistula on Doppler and palpation. There is an excellent thrill and the fistula over the bicep. We then irrigated with copious amounts of saline. Bovie cautery was used for additional hemostasis where needed. We approximated the deep tissues to close space with 2-0 Vicryl suture. We closed the fascia with 2-0 Vicryl suture. We approximated the deep dermal layer with 3-0 Vicryl suture. We then closed the skin with a running 4-0 subcuticular Monocryl suture. The incision was clean and dry. Mastisol and Steri-Strips replace the length of the incision and then 4 x 4's and Tegaderm were placed as a final dressing. The patient had a good perfusion to the hand and excellent thrill over the fistula. She was then allowed to awaken from anesthesia and taken to recovery in stable condition. ESTIMATED BLOOD LOSS: Approximately 50 mL. COMPLICATIONS: None. PLAN: Okay to resume preoperative diet and medications. Okay to remove Tegaderm and dry gauze after 48 hours, but we Steri-Strips in place for a week to help incision to heal. Continue to use squeeze ball right hand to improve circulation and improve fistula flow. No lifting greater than 5 pounds or strenuous exercise right upper extremity for 1 week. We will see the patient back in a week to check her fistula and her incision. We appreciate the opportunity to participate in the care of this patient. CORONA JEAN MD Mar 25, 2021 10:25
[2021-03-25 10:49] VITALS: BP 145/71
== END 2021-03-25 11:56 | disposition home or self-care (01) ==
LOC: M SDC 06:18
PROVIDERS: ATTEND Surgery Vascular Surgery
DX: N18.6 End stage renal disease (principal); I12.0 Hypertensive chronic kidney disease with stage 5 chronic kidney disease or end stage renal disease; K21.9 Gastro-esophageal reflux disease without esophagitis; M31.7 Microscopic polyangiitis; M81.0 Age-related osteoporosis without current pathological fracture; R60.0 Localized edema; R91.8 Other nonspecific abnormal finding of lung field; Z79.899 Other long term (current) drug therapy; Z86.2 Personal history of diseases of the blood and blood-forming organs and certain disorders involving the immune mechanism; Z88.0 Allergy status to penicillin; Z88.1 Allergy status to other antibiotic agents; Z88.8 Allergy status to other drugs, medicaments and biological substances; Z99.2 Dependence on renal dialysis

== ENCOUNTER → 2021-07-13 | Outpatient (CLI) | payer MEDICARE, MEDICAID ==
[~2021-07-13] MED LIST changes: +LIDOCAINE 1% MDV 20ML VIAL As Ordered ONE; +MIDAZOLAM INJ 2MG/2ML VIAL (J2250 PER 1MG) As Ordered ONE; -VANCOMYCIN HCL 1,000 MG, VIAL MATE ADAPTER 1 EACH in NS 250 ML IV ONE; +fentaNYL 100 MCG/2 ML INJECTION (J3010) As Ordered ONE
[2021-07-13 10:30] VITALS: BP 155/78
--- NOTE | 2021-07-13 13:13 | ROOPDOC ---
[facility] Report Of Operation Report of Operation DATE OF PROCEDURE: 07/13/21 PREPROCEDURE DIAGNOSES: Renal Failure POSTPROCEDURE DIAGNOSES: Renal Failure PROCEDURE PERFORMED: Permacath Removal SURGEON: Gregory Pendleton MD ANESTHESIA: Local and sedation ESTIMATED BLOOD LOSS: None COMPLICATIONS: None DESCRIPTION OF PROCEDURE: Patient was brought into the IR suite and placed on the IR table in supine position. Patient's right chest and catheter were prepped and draped in standard surgical fashion. Patient was administered local anesthetic around the permacath skin insertion site and along the tunnel where the cuff is located as well as moderate sedation. A Mosquito clamp was used to separate the Alec cuff from the surrounding tissues. The catheter was then removed with without any complication. Pressure was held at the venotomy site in the neck for several minutes. A sterile dressing was then placed on the open wound. GREGORY PENDLETON MD Jul 13, 2021 13:13
== END ==
LOC: M IRPRO 08:13
PROVIDERS: ATTEND Surgery Vascular Surgery
DX: Z45.2 Encounter for adjustment and management of vascular access device (principal); N18.6 End stage renal disease
CPT/HCPCS: 36589; J1644; J2250; J3010

== ENCOUNTER 2021-08-09 08:29 | Inpatient (IN) | payer MEDICARE, MEDICAID ==
[~2021-08-09] VITALS: Ht 170.2 cm; Wt 43.2 kg
[~2021-08-09 08:29] MED LIST changes: -LIDOCAINE 1% MDV 20ML VIAL As Ordered ONE; -MIDAZOLAM INJ 2MG/2ML VIAL (J2250 PER 1MG) As Ordered ONE; -fentaNYL 100 MCG/2 ML INJECTION (J3010) As Ordered ONE
--- OUTSIDE RECORDS SUMMARY | 2021-08-09 08:35 | CCD | Continuity of Care Document ---
Author Author Bettye CARPENTER MD Organization Unknown Address [address] [facility], [address] [place] [address] Phone [phone] Care Team Providers Care Armed Security Professional Name Role Phone AUTM Unavailable Stefania Tolentino M.D. AUTM [phone] Lizandro Colbert M.D. AUTM [phone] AUTM Unavailable Problems Active Problems Provider Date Essential hypertension Jacque Jean MD Onset: 0 Hemoptysis Armen Sauer D.O. Onset: 03/29/2021 End-stage renal disease Armen Sauer D.O. Onset: 1 Bleeding from nose Armen Sauer D.O. Onset: 08/25/2020 Abnormal findings on diagnostic imaging of lung Armen Sauer D.O. Onset: 08/25/2020 Social History Type Date Description Comments Sex Unknown ETOH Use Denies alcohol use Recreational Drug Use Denies Drug Use Tobacco Use Start: Unknown Patient has never smoked Smoking Status Reviewed: 04/01/21 Patient has never smoked Allergies, Adverse Reactions, Alerts Active Allergies Criticality Reaction | Severity Comments Date Coumadin Unable to assess criticality 05/04/2020 Penicillin V Unable to assess criticality 05/05/2020 Clarithromycin Unable to assess criticality 05/05/2020 Lisinopril Unable to assess criticality 05/05/2020 Cortisone Unable to assess criticality 05/05/2020 Isotretinoin Unable to assess criticality 05/05/2020 Medications Active Medications SIG Qnty Indications Ordering Provide r Date Metoprolol Succinate ER 100mg Tablets ER 24HR daily Unknown Pantoprazole Sodium 40mg Tablets D R 1 tab by mouth every day Unknown Amlodipine Besylate 10mg Tablets 1 tab by mouth every day Unknown Losartan Potassium 50mg Tablets 1 tab by mouth every day Unknown Candice-Elslie Tablets daily Unknown Prednisone 10mg Tablets Ev raghu Day 40tabs Unknown Tylenol 325mg Capsules take 1 tab every 4 hours as needed for pain Unknown Furosemide 20mg Tablets Take One Tablet By Mouth Every Day Unknown Immunizations Description No Information Available Vital Signs Date Vital Result Comment 06/24/2021 9:59am BP Systolic 138 mmHg BP Diastolic 68 mmHg Body Temperature 98.2 F Height 65 inches 5'5" Weight 101.00 lb BMI (Body Mass Index) 16.8 kg/m2 [place] Body Weight 125 lb Weight 45.814 kg BSA (Body Surface Area) 1.48 m2 04/22/2021 10:42am BP Systolic 162 mmHg BP Diastolic 70 mmHg Heart Rate 76 /min Height 65 inches 5'5" Weight 102.00 lb BMI (Body Mass Index) 17.0 kg/m2 [place] Body Weight 125 lb Weight 46.267 kg BSA (Body Surface Area) 1.49 m2 Results Test Acquired Date Facility Test Result H/L Range Note Laboratory test finding 03/25/2021 [facility] [address] [place] [address] [phone] Potassium Serum 4.2 mEq/L Normal 3.5-5.1 1 1 By: SANIR Time: 621 By: SANIR Time: 621 Procedures Date Code Description Status 06/24/2021 04761 Office/Outpatient Established Lo w MDM 20-29 Min Completed 03/29/2021 12756 Office/Outpatient Established Lo w MDM 20-29 Min Completed 03/25/2021 06001 Arteriovenous Anastomosis, Open By Basilic Vein Transposition Completed 01/07/2021 88169 Office/Outpatient Established Lo w MDM 20-29 Min Completed 01/05/2021 30958 Office/Outpatient Established Lo w MDM 20-29 Min Completed Medical Devices Description No Information Available Encounters Type Date Location Provider Dx Diagnosis Office Visit 06/24/2021 9:30a [facility] Sukhdev Carpenter MD N18.6 End stage renal disease Office Visit 04/22/2021 10:30a [facility] Jacque melendez MD N18.6 End stage renal disease Z48.812 Encntr for surgical aftcr fo llowing surgery on the circ sys Office Visit 04/01/2021 1:30p [facility] JUNITO Atkins N18.6 End stage renal disease Z99.2 Dependence on renal dialysis Z48.812 Encntr for surgical aftcr fo llowing surgery on the circ sys Office Visit 03/29/2021 3:30p [facility] Armen huitron D.O. R91.8 Other nonspecific abnormal finding of caty ng field N18.6 End stage renal disease R04.2 Hemoptysis Office Visit 01/07/2021 2:45p [facility] Jacque melendez MD N18.6 End stage renal disease Z99.2 Dependence on renal dialysis Office Visit 01/05/2021 11:15a [facility] JUNITO Atkins N18.6 End stage renal disease Z99.2 Dependence on renal dialysis Assessments Date Code Description Provider 06/24/2021 N18.6 End stage renal disease Sukhdev lawson MD 04/22/2021 N18.6 End stage renal disease Jacque adrian MD 04/22/2021 Z48.812 Encounter for surgic al aftercare following surgery on the circulatory system Jacque Jean MD 04/01/2021 N18.6 End stage renal disease JUNITO Grace 04/01/2021 Z99.2 Dependence on renal dialysis JUNITO Gaitan 04/01/2021 Z48.812 Encounter for surgic al aftercare following surgery on the circulatory system JUNITO Umana 03/29/2021 R91.8 Abnormal findings on diagnostic imaging of lung Nina Bee.OMaxine 03/29/2021 N18.6 End stage renal disease Armen english D.OMaxine 03/29/2021 R04.2 Hemoptysis Armen Sauer D.OMaxine 03/25/2021 T82.590A 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, initial encounter Jacque Jean MD 03/25/2021 N18.6 End stage renal disease Jacque adrian MD 01/07/2021 N18.6 End stage renal disease Jacque adrian MD 01/07/2021 Z99.2 Dependence on renal dialysis Nellie Jean MD 01/05/2021 N18.6 End stage renal disease JUNITO Grace 01/05/2021 Z99.2 Dependence on renal dialysis JUNITO Gaitan Plan of Treatment No Information Available Functional Status Description No Information Available Mental Status Description No Information Available Referrals Refer to Reason for Referral Status Appt Date Sukhdev Carpenter MD CATH REMOVAL Scheduled 06/24/2021 [address] [facility] [facility] [address] [place] [address] [phone] Radiology/Procedure [id number] Closed 02/09/2021
--- OUTSIDE RECORDS SUMMARY | 2021-08-09 08:35 | CCD ---
Author Author [facility] Organization [facility] Address Unknown Phone Unavailable Care Team Providers Care Billing Assistant Name Role Phone Dimitri CARPENTER MD Unavailable Unavailable Dimitri CARPENTER MD Unavailable Unavailable Dimitri CARPENTER MD Unavailable Unavailable Dimitri CARPENTER MD Unavailable Unavailable Dimitri CARPENTER MD Unavailable Unavailable Dimitri CARPENTER MD Unavailable Unavailable SEARS, A VY DO Unavailable Unavailable SEARS, A VY DO Unavailable Unavailable SEARS, A YV DO Unavailable Unavailable SEARS, A VY DO Unavailable Unavailable SEARS, A VY DO Unavailable Unavailable SEARS, A VY DO Unavailable Unavailable SEARS, A VY DO Unavailable Unavailable SEARS, A VY DO Unavailable Unavailable SEARS, A VY DO Unavailable Unavailable SEARS, A VY DO Unavailable Unavailable SEARS, A VY DO Unavailable Unavailable SEARS, A VY DO Unavailable Unavailable SEARS, A VY DO Unavailable Unavailable SEARS, A YV DO Unavailable Unavailable SEARS, A VY DO Unavailable Unavailable SEARS, A VY DO Unavailable Unavailable SEARS, A VY DO Unavailable Unavailable SEARS, A VY DO Unavailable Unavailable SEARS, A VY DO Unavailable Unavailable SEARS, A VY DO Unavailable Unavailable SEARS, A VY DO Unavailable Unavailable SEARS, A VY DO Unavailable Unavailable SEARS, A VY DO Unavailable Unavailable SEARS, A VY DO Unavailable Unavailable SEARS, A VY DO Unavailable Unavailable SEARS, A VY DO Unavailable Unavailable SEARS, A VY DO Unavailable Unavailable SEARS, A VY DO Unavailable Unavailable SEARS, A VY DO Unavailable Unavailable SEARS, A VY DO Unavailable Unavailable SEARS, A VY DO Unavailable Unavailable SEARS, A VY DO Unavailable Unavailable SEARS, A VY DO Unavailable Unavailable SEARS, A VY DO Unavailable Unavailable SEARS, A VY DO Unavailable Unavailable SEARS, A VY DO Unavailable Unavailable SEARS, A VY DO Unavailable Unavailable SEARS, A VY DO Unavailable Unavailable SEARS, A VY DO Unavailable Unavailable SEARS, A VY DO Unavailable Unavailable SEARS, A VY DO Unavailable Unavailable SEARS, A VY DO Unavailable Unavailable SEARS, A VY DO Unavailable Unavailable SEARS, A VY DO Unavailable Unavailable SEARS, A VY DO Unavailable Unavailable SEARS, A VY DO Unavailable Unavailable SEARS, A VY DO Unavailable Unavailable SEARS, A VY DO Unavailable Unavailable Cederstrand, Alysha Santillan MD Unavailable Unavailable Cederstrand, Alysha Santillan MD Unavailable Unavailable Cederstrand, Alysha Santillan MD Unavailable Unavailable Cederstrand, Alysha Santillan MD Unavailable Unavailable Cederstrand, Alysha Santillan MD Unavailable Unavailable Cederstrand, Alysha Santillan MD Unavailable Unavailable Cederstrand, Alysha Santillan MD Unavailable Unavailable Cederstrand, Alysha Santillan MD Unavailable Unavailable Cederstrand, Alysha Santillan MD Unavailable Unavailable Cederstrand, Alysha Santillan MD Unavailable Unavailable Cederstrand, Alysha Santillan MD Unavailable Unavailable Cederstrand, Alysha Santillan MD Unavailable Unavailable Cederstrand, Alysha Santillan MD Unavailable Unavailable Cederstrand, Alysha Santillan MD Unavailable Unavailable Cederstrand, Alysha Santillan MD Unavailable Unavailable Cederstrand, Alysha Santillan MD Unavailable Unavailable Macedo, L Lien RPA Unavailable Unavailable Macedo, L Lien RPA Unavailable Unavailable Macedo, L Lien RPA Unavailable Unavailable Macedo, L Lien RPA Unavailable Unavailable Macedo, L Lien RPA Unavailable Unavailable Macedo, L Lien RPA Unavailable Unavailable Macedo, L Lien RPA Unavailable Unavailable Macedo, L Lien RPA Unavailable Unavailable Macedo, L Lien RPA Unavailable Unavailable Macedo, L Lien RPA Unavailable Unavailable Macedo, L Lien RPA Unavailable Unavailable Macedo, L Lien RPA Unavailable Unavailable Macedo, L Lien RPA Unavailable Unavailable Macedo, L Lien RPA Unavailable Unavailable Macedo, L Lien RPA Unavailable Unavailable Macedo, L Lien RPA Unavailable Unavailable Macedo, L Lien RPA Unavailable Unavailable Macedo, L Lien RPA Unavailable Unavailable Macedo, L Lien RPA Unavailable Unavailable Macedo, L Lien RPA Unavailable Unavailable Macedo, L Lien RPA Unavailable Unavailable Macedo, L Lien RPA Unavailable Unavailable Macedo, L Lien RPA Unavailable Unavailable Macedo, L Lien RPA Unavailable Unavailable Macedo, L Lien RPA Unavailable Unavailable Macedo, L Lien RPA Unavailable Unavailable Macedo, L Lien RPA Unavailable Unavailable Macedo, L Lien RPA Unavailable Unavailable Macedo, L Lien RPA Unavailable Unavailable Macedo, L Lien RPA Unavailable Unavailable Macedo, L Lien RPA Unavailable Unavailable Macedo, L Lien RPA Unavailable Unavailable WHITE, M ELY PA Unavailable Unavailable WHITE, M ELY PA Unavailable Unavailable WHITE, M EYL PA Unavailable Unavailable WHITE, M ELY PA Unavailable Unavailable WHITE, M ELY PA Unavailable Unavailable WHITE, M ELY PA Unavailable Unavailable WHITE, M ELY PA Unavailable Unavailable WHITE, M ELY PA Unavailable Unavailable WHITE, M ELY PA Unavailable Unavailable WHITE, M ELY PA Unavailable Unavailable WHITE, M ELY PA Unavailable Unavailable WHITE, M ELY PA Unavailable Unavailable WHITE, M ELY PA Unavailable Unavailable WHITE, M ELY PA Unavailable Unavailable WHITE, M ELY PA Unavailable Unavailable WHITE, M ELY PA Unavailable Unavailable WHITE, M ELY PA Unavailable Unavailable WHITE, M ELY PA Unavailable Unavailable WHITE, M ELY PA Unavailable Unavailable WHITE, M ELY PA Unavailable Unavailable WHITE, M ELY PA Unavailable Unavailable WHITE, M ELY PA Unavailable Unavailable WHITE, M ELY PA Unavailable Unavailable WHITE, M ELY PA Unavailable Unavailable WHITE, M ELY PA Unavailable Unavailable WHITE, M ELY PA Unavailable Unavailable WHITE, M ELY PA Unavailable Unavailable WHITE, M ELY PA Unavailable Unavailable WHITE, M ELY PA Unavailable Unavailable WHITE, M ELY PA Unavailable Unavailable WHITE, M ELY PA Unavailable Unavailable WHTIE, M LEY PA Unavailable Unavailable WHITE, M ELY PA Unavailable Unavailable WHITE, M ELY PA Unavailable Unavailable WHITE, M ELY PA Unavailable Unavailable Re-disclosure Warning The records that you are about to access may contain information from federally-assisted alcohol or drug abuse programs. If such information is present, then the following federally mandated warning applies: This information has been disclosed to you from records protected by federal confidentiality rules (42 CFR part 2). The federal rules prohibit you from making any further disclosure of this information unless further disclosure is expressly permitted by the written consent of the person to whom it pertains or as otherwise permitted by 42 CFR part 2. A general authorization for the release of medical or other information is NOT sufficient for this purpose. The Federal rules restrict any use of the information to criminally investigate or prosecute any alcohol or drug abuse patient.The records that you are about to access may contain highly sensitive health information, the redisclosure of which is protected by Article 27-F of the [facility] [place] Public Health law. If you continue you may have access to information: Regarding HIV / AIDS; Provided by facilities licensed or operated by the [facility] [place] Office of Mental Health; or Provided by the [facility] [place] Office for People With Developmental Disabilities. If such information is present, then the following [facility] [place] mandated warning applies: This information has been disclosed to you from confidential records which are protected by state law. State law prohibits you from making any further disclosure of this information without the specific written consent of the person to whom it pertains, or as otherwise permitted by law. Any unauthorized further disclosure in violation of state law may result in a fine or snf sentence or both. A general authorization for the release of medical or other information is NOT sufficient authorization for further disc losure. Encounters Encounter Providers Location Date Indications Data Source(s ) Outpatient Attender: GREGORY Macdonald/Carol/Javier/Alejandro 06/24/2021 09:30:00 AM EDT [facility] ([facility]) Office Visit Attender: Jacque Macdonald/Carol/Javier/ Alejandro 04/22/2021 10:30:00 AM EDT [facility] ([facility]) Office Visit Attender: Lien Macdonald/Carol/Javier/R eindl 04/01/2021 01:30:00 PM EDT [facility] ([facility]) Outpatient Attender: VY METZ DO Renae/[place]/Javier/Reindl 03/29/2021 03:30:00 PM EDT [facility] ([facility]) Outpatient Attender: Jacque Marioang/[place]/Javier/ Reindl 01/07/2021 02:45:00 PM EDT [facility] ([facility]) Outpatient Attender: Lien Macedo RPA Renae/[place]/Javier/R eindl 01/05/2021 11:15:00 AM EDT [facility] ([facility]) Outpatient Attender: VY METZ DO Renae/[place]/Javier/Reindl 08/25/2020 10:00:00 AM EST [facility] ([facility]) Office Visit Attender: Lien Macedo RPA Renae/[place]/Javier/R eindl 08/18/2020 09:00:00 AM EDT [facility] ([facility]) Outpatient Attender: ELY Marioang/[place]/Javier/Rein dl 07/08/2020 01:23:00 AM EDT [facility] ([facility]) Outpatient Attender: VY METZ DO Renae/[place]/Javier/Reindl 07/07/2020 01:23:00 AM EDT [facility] ([facility]) Outpatient Attender: Jacque Macdonald/[place]/Javier/ Reindl 07/06/2020 02:30:00 PM EDT [facility] ([facility]) Outpatient Attender: Jacque Macdonald/[place]/Javier/ Reindl 07/06/2020 12:00:00 PM EDT [facility] ([facility]) Medications Medication Brand Name Start Date Product Form Dose Route Admi nistrative Instructions Pharmacy Instructions Status Indications Reaction Description Data Source(s) 10 mg 08/01/2021 12:00:00 AM EDT tablet 30 TAKE ONE TABLET BY MOUTH EVERY DAY TAKE ONE TABLET BY MOUTH EVERY DAY SOLD: 08/04/2021 [facility] 5-325 mg 03/25/2021 12:00:00 AM EDT tablet 15 TAKE ONE TABLET BY MOUTH THREE TIMES A DAY NEEDED FOR PAIN MAX=3TABS/DAY TAKE ONE TABLET BY MOUTH THREE TIMES A DAY NEEDED FOR PAIN MAX=3TABS/DAY SOLD: 03/25/2021 [facility] 5 mg 03/16/2021 12:00:00 AM EDT tablet 90 TAKE THREE TABLETS BY MOUTH EVERY DAY TAKE THREE TABLETS BY MOUTH EVERY DAY SOLD: 04/21/2021 [facility] 5 mg 03/16/2021 12:00:00 AM EDT tablet 90 TAKE THREE TABLETS BY MOUTH EVERY DAY TAKE THREE TABLETS BY MOUTH EVERY DAY SOLD: 06/19/2021 [facility] 5 mg 03/16/2021 12:00:00 AM EDT tablet 90 TAKE THREE TABLETS BY MOUTH EVERY DAY TAKE THREE TABLETS BY MOUTH EVERY DAY SOLD: 07/20/2021 [facility] 5 mg 03/16/2021 12:00:00 AM EDT tablet 90 TAKE THREE TABLETS BY MOUTH EVERY DAY TAKE THREE TABLETS BY MOUTH EVERY DAY SOLD: 05/19/2021 [facility] 5 mg 03/16/2021 12:00:00 AM EDT tablet 90 TAKE THREE TABLETS BY MOUTH EVERY DAY TAKE THREE TABLETS BY MOUTH EVERY DAY SOLD: 03/20/2021 [facility] 20 mg 03/02/2021 12:00:00 AM EDT tablet 90 TAKE ONE TABLET BY MOUTH EVERY DAY TAKE ONE TABLET BY MOUTH EVERY DAY SOLD: 06/02/2021 [facility] 100 mg 03/02/2021 12:00:00 AM EDT tablet extended release 24 hr 90 TAKE ONE TABLET BY MOUTH EVERY DAY TAKE ONE TABLET BY MOUTH EVERY DAY SOLD: 06/02/2021 [facility] 20 mg 03/02/2021 12:00:00 AM EDT tablet 90 TAKE ONE TABLET BY MOUTH EVERY DAY TAKE ONE TABLET BY MOUTH EVERY DAY SOLD: 03/05/2021 [facility] 100 mg 03/02/2021 12:00:00 AM EDT tablet extended release 24 hr 90 TAKE ONE TABLET BY MOUTH EVERY DAY TAKE ONE TABLET BY MOUTH EVERY DAY SOLD: 03/05/2021 [facility] 10 mg 02/22/2021 12:00:00 AM EDT tablet 30 TAKE ONE TABLET BY MOUTH EVERY DAY TAKE ONE TABLET BY MOUTH EVERY DAY SOLD: 05/02/2021 [facility] 10 mg 02/22/2021 12:00:00 AM EDT tablet 30 TAKE ONE TABLET BY MOUTH EVERY DAY TAKE ONE TABLET BY MOUTH EVERY DAY SOLD: 07/04/2021 [facility] 10 mg 02/22/2021 12:00:00 AM EDT tablet 30 TAKE ONE TABLET BY MOUTH EVERY DAY TAKE ONE TABLET BY MOUTH EVERY DAY SOLD: 02/25/2021 [facility] 10 mg 02/22/2021 12:00:00 AM EDT tablet 30 TAKE ONE TABLET BY MOUTH EVERY DAY TAKE ONE TABLET BY MOUTH EVERY DAY SOLD: 06/02/2021 [facility] 10 mg 02/22/2021 12:00:00 AM EDT tablet 30 TAKE ONE TABLET BY MOUTH EVERY DAY TAKE ONE TABLET BY MOUTH EVERY DAY SOLD: 03/25/2021 [facility] Ascorbic Acid 60 MG / Calcium Pantothena te 10 MG / D-BIOTIN 0.3 MG / Folic Acid 0.8 MG / Niacinamide 20 MG / pyridoxine 10 MG / Riboflavin 1.7 MG / Thiamine 1.5 MG / Vitamin B 12 0.006 MG Oral Tablet [Candice-Leslie] FOLIC ACID/VIT B COMPLEX AND C 02/01/2021 12:00:00 AM EDT tablet 30 TAKE ONE TABLET BY MOUTH EVERY DAY TAKE ONE TABLET BY MOUTH EVERY DAY SOLD: 03/20/2021 [facility] Ascorbic Acid 60 MG / Calcium Pantothena te 10 MG / D-BIOTIN 0.3 MG / Folic Acid 0.8 MG / Niacinamide 20 MG / pyridoxine 10 MG / Riboflavin 1.7 MG / Thiamine 1.5 MG / Vitamin B 12 0.006 MG Oral Tablet [Candice-Leslie] FOLIC ACID/VIT B COMPLEX AND C 02/01/2021 12:00:00 AM EDT tablet 30 TAKE ONE TABLET BY MOUTH EVERY DAY TAKE ONE TABLET BY MOUTH EVERY DAY SOLD: 04/21/2021 [facility] Ascorbic Acid 60 MG / Calcium Pantothena te 10 MG / D-BIOTIN 0.3 MG / Folic Acid 0.8 MG / Niacinamide 20 MG / pyridoxine 10 MG / Riboflavin 1.7 MG / Thiamine 1.5 MG / Vitamin B 12 0.006 MG Oral Tablet [Candice-Leslie] FOLIC ACID/VIT B COMPLEX AND C 02/01/2021 12:00:00 AM EDT tablet 30 TAKE ONE TABLET BY MOUTH EVERY DAY TAKE ONE TABLET BY MOUTH EVERY DAY SOLD: 06/19/2021 [facility] Ascorbic Acid 60 MG / Calcium Pantothena te 10 MG / D-BIOTIN 0.3 MG / Folic Acid 0.8 MG / Niacinamide 20 MG / pyridoxine 10 MG / Riboflavin 1.7 MG / Thiamine 1.5 MG / Vitamin B 12 0.006 MG Oral Tablet [Candice-Leslie] FOLIC ACID/VIT B COMPLEX AND C 02/01/2021 12:00:00 AM EDT tablet 30 TAKE ONE TABLET BY MOUTH EVERY DAY TAKE ONE TABLET BY MOUTH EVERY DAY SOLD: 05/19/2021 [facility] Ascorbic Acid 60 MG / Calcium Pantothena te 10 MG / D-BIOTIN 0.3 MG / Folic Acid 0.8 MG / Niacinamide 20 MG / pyridoxine 10 MG / Riboflavin 1.7 MG / Thiamine 1.5 MG / Vitamin B 12 0.006 MG Oral Tablet [Candice-Leslie] FOLIC ACID/VIT B COMPLEX AND C 02/01/2021 12:00:00 AM EDT tablet 30 TAKE ONE TABLET BY MOUTH EVERY DAY TAKE ONE TABLET BY MOUTH EVERY DAY SOLD: 07/20/2021 [facility] Ascorbic Acid 60 MG / Calcium Pantothena te 10 MG / D-BIOTIN 0.3 MG / Folic Acid 0.8 MG / Niacinamide 20 MG / pyridoxine 10 MG / Riboflavin 1.7 MG / Thiamine 1.5 MG / Vitamin B 12 0.006 MG Oral Tablet [Candice-Leslie] FOLIC ACID/VIT B COMPLEX AND C 02/01/2021 12:00:00 AM EDT tablet 30 TAKE ONE TABLET BY MOUTH EVERY DAY TAKE ONE TABLET BY MOUTH EVERY DAY SOLD: 02/15/2021 [facility] 5 mg 12/31/2020 12:00:00 AM EST tablet 90 TAKE THREE TABLETS BY MOUTH EVERY DAY TAKE THREE TABLETS BY MOUTH EVERY DAY SOLD: 01/03/2021 [facility] 5 mg 12/31/2020 12:00:00 AM EST tablet 90 TAKE THREE TABLETS BY MOUTH EVERY DAY TAKE THREE TABLETS BY MOUTH EVERY DAY SOLD: 02/15/2021 [facility] 1,250 mcg (50,000 unit) 12/10/2020 12:00:00 AM EST capsule 12 TAKE 1 TABLET BY MOUTH ONCE A WEEK ON MONDAY TAKE 1 TABLET BY MOUTH ONCE A WEEK Monday SOLD: 12/23/2020 [facility] pantoprazole 40 MG Delayed Release Oral Tablet PANTOPRAZOLE SODIUM 12/01/2020 12:00:00 AM EST tablet,delayed release (DR/EC) 30 T SURENDRA ONE TABLET BY MOUTH EVERY DAY TAKE ONE TABLET BY MOUTH EVERY DAY SOLD: 12/04/2020 [facility] 5 mg 10/02/2020 12:00:00 AM EST tablet 90 TAKE 3 TABLETS BY MOUTH EVERY DAY TAKE 3 TABLETS BY MOUTH EVERY DAY SOLD: 11/04/2020 [facility] 5 mg 10/02/2020 12:00:00 AM EST tablet 90 TAKE 3 TABLETS BY MOUTH EVERY DAY TAKE 3 TABLETS BY MOUTH EVERY DAY SOLD: 10/03/2020 [facility] 5 mg 10/02/2020 12:00:00 AM EST tablet 90 TAKE 3 TABLETS BY MOUTH EVERY DAY TAKE 3 TABLETS BY MOUTH EVERY DAY SOLD: 12/04/2020 [facility] pantoprazole 40 MG Delayed Release Oral Tablet PANTOPRAZOLE SODIUM 10/01/2020 12:00:00 AM EST tablet,delayed release (DR/EC) 30 T SURENDRA ONE TABLET BY MOUTH EVERY DAY TAKE ONE TABLET BY MOUTH EVERY DAY SOLD: 10/03/2020 [facility] pantoprazole 40 MG Delayed Release Oral Tablet PANTOPRAZOLE SODIUM 10/01/2020 12:00:00 AM EST tablet,delayed release (DR/EC) 30 T SURENDRA ONE TABLET BY MOUTH EVERY DAY TAKE ONE TABLET BY MOUTH EVERY DAY SOLD: 11/04/2020 [facility] 100 mg 09/01/2020 12:00:00 AM EST tablet extended release 24 hr 90 TAKE ONE TABLET BY MOUTH EVERY DAY TAKE ONE TABLET BY MOUTH EVERY DAY SOLD: 09/04/2020 [facility] 100 mg 09/01/2020 12:00:00 AM EST tablet extended release 24 hr 90 TAKE ONE TABLET BY MOUTH EVERY DAY TAKE ONE TABLET BY MOUTH EVERY DAY SOLD: 12/04/2020 [facility] 800 mg 08/14/2020 12:00:00 AM EDT tablet 90 TAKE ONE TABLET BY MOUTH THREE TIMES A DAY WITH MEALS TAKE ONE TABLET BY MOUTH THREE TIMES A DAY WITH MEALS SOLD: 09/18/2020 [facility] 800 mg 08/14/2020 12:00:00 AM EDT tablet 90 TAKE ONE TABLET BY MOUTH THREE TIMES A DAY WITH MEALS TAKE ONE TABLET BY MOUTH THREE TIMES A DAY WITH MEALS SOLD: 08/17/2020 [facility] 800 mg 08/14/2020 12:00:00 AM EDT tablet 90 TAKE ONE TABLET BY MOUTH THREE TIMES A DAY WITH MEALS TAKE ONE TABLET BY MOUTH THREE TIMES A DAY WITH MEALS SOLD: 10/20/2020 [facility] 5-325 mg 08/11/2020 12:00:00 AM EDT tablet 9 TAKE ONE TABLET BY MOUTH THREE TIMES A DAY NEEDED MAX=3TABS/DAY TAKE ONE TABLET BY MOUTH THREE TIMES A D AY NEEDED MAX=3TABS/DAY SOLD: 08/11/2020 [facility] 10 mg 08/09/2020 12:00:00 AM EDT tablet 30 TAKE ONE TABLET BY MOUTH EVERY DAY TAKE ONE TABLET BY MOUTH EVERY DAY SOLD: 01/26/2021 [facility] 10 mg 08/09/2020 12:00:00 AM EDT tablet 30 TAKE ONE TABLET BY MOUTH EVERY DAY TAKE ONE TABLET BY MOUTH EVERY DAY SOLD: 10/12/2020 [facility] 10 mg 08/09/2020 12:00:00 AM EDT tablet 30 TAKE ONE TABLET BY MOUTH EVERY DAY TAKE ONE TABLET BY MOUTH EVERY DAY SOLD: 08/09/2020 [facility] 10 mg 08/09/2020 12:00:00 AM EDT tablet 30 TAKE ONE TABLET BY MOUTH EVERY DAY TAKE ONE TABLET BY MOUTH EVERY DAY SOLD: 12/23/2020 [facility] 10 mg 08/09/2020 12:00:00 AM EDT tablet 30 TAKE ONE TABLET BY MOUTH EVERY DAY TAKE ONE TABLET BY MOUTH EVERY DAY SOLD: 09/11/2020 [facility] 10 mg 08/09/2020 12:00:00 AM EDT tablet 30 TAKE ONE TABLET BY MOUTH EVERY DAY TAKE ONE TABLET BY MOUTH EVERY DAY SOLD: 11/13/2020 [facility] 0.8 mg 08/03/2020 12:00:00 AM EDT tablet 30 TAKE ONE TABLET BY MOUTH EVERY DAY TAKE ONE TABLET BY MOUTH EVERY DAY SOLD: 12/04/2020 [facility] 0.8 mg 08/03/2020 12:00:00 AM EDT tablet 30 TAKE ONE TABLET BY MOUTH EVERY DAY TAKE ONE TABLET BY MOUTH EVERY DAY SOLD: 09/04/2020 [facility] 0.8 mg 08/03/2020 12:00:00 AM EDT tablet 30 TAKE ONE TABLET BY MOUTH EVERY DAY TAKE ONE TABLET BY MOUTH EVERY DAY SOLD: 11/04/2020 [facility] 0.8 mg 08/03/2020 12:00:00 AM EDT tablet 30 TAKE ONE TABLET BY MOUTH EVERY DAY TAKE ONE TABLET BY MOUTH EVERY DAY SOLD: 08/05/2020 [facility] 0.8 mg 08/03/2020 12:00:00 AM EDT tablet 30 TAKE ONE TABLET BY MOUTH EVERY DAY TAKE ONE TABLET BY MOUTH EVERY DAY SOLD: 10/03/2020 [facility] 0.8 mg 08/03/2020 12:00:00 AM EDT tablet 30 TAKE ONE TABLET BY MOUTH EVERY DAY TAKE ONE TABLET BY MOUTH EVERY DAY SOLD: 01/03/2021 [facility] 10 mg 07/24/2020 12:00:00 AM EDT tablet 70 TAKE 4 TABLETS BY MOUTH ONCE DAILY FOR 7 DAYS THEN TAKE 3 TABLETS ONCE DAILY FOR 7 DAYS THEN TAKE 2 TABLETS ONCE DAILY FOR 7 DAYS THEN TAKE 1 TABLET ONCE DAILY FOR 7 DAYS THEN RESUME 5MG DAILY DOSE TAKE 4 TABLETS BY MOUTH ONCE DAILY FOR 7 DAYS THEN TAKE 3 TABLETS ONCE DAILY FOR 7 DAYS THEN TAKE 2 TABLETS ONCE DAILY FOR 7 DAYS THEN TAKE 1 TABLET ONCE DAILY FOR 7 DAYS THEN RESUME 5MG DAILY DOSE SOLD: 07/25/2020 [facility] 50 mg 07/16/2020 12:00:00 AM EDT tablet 14 TAKE ONE TABLET BY MOUTH EVERY DAY TAKE ONE TABLET BY MOUTH EVERY DAY SOLD: 07/17/2020 [facility] 300 mg 07/16/2020 12:00:00 AM EDT capsule 8 TAKE ONE CAPSULE BY MOUTH EVERY DAY TAKE ONE CAPSULE BY MOUTH EVERY DAY SOLD: 07/17/2020 [facility] Metronidazole 500 MG Oral Tablet METRONIDAZOLE 07/16/2020 12:0 0:00 AM EDT tablet 24 TAKE ONE TABLET BY M OUTH EVERY 8 HOURS FOR 8 DAYS , FOLLOW UP WITH DR. ROSAS TAKE ONE TABLET BY MOUTH EVERY 8 HOURS F OR 8 DAYS , FOLLOW UP WITH DR. ROSAS SOLD: 07/17/2020 [facility] 20 mg 07/09/2020 12:00:00 AM EDT tablet 10 TAKE TWO TABLETS BY MOUTH EVERY DAY FOR 5 DAYS TAKE TWO TABLETS BY MOUTH EVERY DAY FOR 5 DAYS SOLD: 020 [facility] 5 mg 07/03/2020 12:00:00 AM EDT tablet 90 TAKE 3 TABLETS BY MOUTH EVERY DAY TAKE 3 TABLETS BY MOUTH EVERY DAY SOLD: 08/05/2020 [facility] pantoprazole 40 MG Delayed Release Oral Tablet PANTOPRAZOLE SODIUM 07/03/2020 12:00:00 AM EDT tablet,delayed release (DR/EC) 30 T SURENDRA ONE TABLET BY MOUTH EVERY DAY TAKE ONE TABLET BY MOUTH EVERY DAY SOLD: 08/05/2020 [facility] 40 mg 07/03/2020 12:00:00 AM EDT tablet,delayed release (DR/EC) 30 TAKE ONE TABLET BY MOUTH EVERY DAY TAKE ONE TABLET BY MOUTH EVERY DAY SOLD: 07/06/2020 [facility] 5 mg 07/03/2020 12:00:00 AM EDT tablet 90 TAKE 3 TABLETS BY MOUTH EVERY DAY TAKE 3 TABLETS BY MOUTH EVERY DAY SOLD: 09/04/2020 [facility] 5 mg 07/03/2020 12:00:00 AM EDT tablet 90 TAKE 3 TABLETS BY MOUTH EVERY DAY TAKE 3 TABLETS BY MOUTH EVERY DAY SOLD: 07/06/2020 [facility] pantoprazole 40 MG Delayed Release Oral Tablet PANTOPRAZOLE SODIUM 07/03/2020 12:00:00 AM EDT tablet,delayed release (DR/EC) 30 T SURENDRA ONE TABLET BY MOUTH EVERY DAY TAKE ONE TABLET BY MOUTH EVERY DAY SOLD: 09/04/2020 [facility] 50 mg 06/10/2020 12:00:00 AM EDT tablet 90 TAKE ONE TABLET BY MOUTH EVERY DAY TAKE ONE TABLET BY MOUTH EVERY DAY SOLD: 06/16/2020 [facility] 20 mg 06/01/2020 12:00:00 AM EDT tablet 90 TAKE ONE TABLET BY MOUTH EVERY DAY TAKE ONE TABLET BY MOUTH EVERY DAY SOLD: 09/04/2020 [facility] 20 mg 06/01/2020 12:00:00 AM EDT tablet 90 TAKE ONE TABLET BY MOUTH EVERY DAY TAKE ONE TABLET BY MOUTH EVERY DAY SOLD: 12/04/2020 [facility] 800 mg 04/15/2020 12:00:00 AM EDT tablet 90 TAKE ONE TABLET BY MOUTH THREE TIMES A DAY WITH MEALS TAKE ONE TABLET BY MOUTH THREE TIMES A DAY WITH MEALS SOLD: 07/17/2020 [facility] 800 mg 04/15/2020 12:00:00 AM EDT tablet 90 TAKE ONE TABLET BY MOUTH THREE TIMES A DAY WITH MEALS TAKE ONE TABLET BY MOUTH THREE TIMES A DAY WITH MEALS SOLD: 06/16/2020 [facility] 0.8 mg 01/30/2020 12:00:00 AM EDT tablet 30 TAKE ONE TABLET BY MOUTH EVERY DAY TAKE ONE TABLET BY MOUTH EVERY DAY SOLD: 07/06/2020 [facility] Insurance Providers Payer name Policy type / Coverage type Policy ID Covered republican ID Covered republican's relationship to franks Policy Franks [id number] SP [id number] C MEDICARE [id number] SP [id number] [place] [id number] SP [id number] [place] O [id number] S [id number] MEDICARE C [id number] S [id number] MEDICAID [id number] S [id number] MEDICAID [id number] SP [id number] MEDICARE [id number] SP [id number] M MEDICAID UNAVAILABLE UNAVAILA BLE MEDICARE C [id number] S [id number] M [id number] M Problems, Conditions, and Diagnoses Code Display Name Description Problem Type Effective Dates Data Source(s) N18.6 End-stage renal disease End-stage renal disease Proble m 03/29/2021 12:00:00 AM EDT [facility] ([facility], ) R04.2 Hemoptysis Hemoptysis Problem 03/29/2021 12:00:00 AM ED T [facility] ([facility], ) R91.8 Abnormal findings on diagnostic imaging of lung Abnormal findings on diagnostic imaging of lung Problem 08/25/2020 12:00:00 AM EST [facility] ([facility], ) R04.0 Bleeding from nose Bleeding from nose Problem 0 12:00:00 AM EST [facility] ([facility], ) Surgeries/Procedures Procedure Description Date Indications Data Source(s) Removal Of Tunneled Central Venous Catheter W/O Subcutaneous Port 07/13/2021 12:00:00 AM EDT [facility] ([facility] ) OFFICE OUTPATIENT VISIT 15 MINUTES 06/24/2021 12:00:00 AM EDT [facility] ([facility], ) OFFICE OUTPATIENT VISIT 15 MINUTES 03/29/2021 12:00:00 AM EDT [facility] ([facility], ) ARVEN ANAST OPN UPR ARM BASILIC VEIN TRPOS 03/25/2021 12:00:00 AM EDT [facility] ([facility]) OFFICE OUTPATIENT VISIT 15 MINUTES 01/07/2021 12:00:00 AM EDT [facility] ([facility]) OFFICE OUTPATIENT VISIT 15 MINUTES 01/05/2021 12:00:00 AM EDT [facility] ([facility]) Av Fistula Artery-Vein 08/11/2020 12:00:00 AM EDT [facility] ([facility]) Results ID Date Data Source [id number] 03/25/2021 06:37:00 AM EDT [facility] ([facility]) Name Value Range Interpretation Code Description Data Allyssa rce(s) Supporting Document(s) Potassium [Moles/volume] in Serum or Plasma 4.2 meq/L 3.5- 5.1 Normal (applies to non-numeric results) [facility] ([facility] ) By: SANIR Time: 621 By: SANIR Time: 621 ID Date Data Source [id number] 03/20/2021 10:40:00 AM EDT [facility] Name Value Range Interpretation Code Description Data Allyssa rce(s) Supporting Document(s) SARS-CoV-2 (COVID-19) RNA [Presence] in Respiratory specimen by JOSHUA with probe detection Not Detected [facility] This lab was ordered by [facility] and reported by [employer]. ID Date Data Source [id number] 08/11/2020 10:32:00 AM EDT [facility] ([facility]) Name Value Range Interpretation Code Description Data Allyssa rce(s) Supporting Document(s) Glucose, Fasting 108 mg/dL 70-100 Above high normal [facility]) Blood Urea Nitrogen 57 mg/dL 7-18 Above high normal [facility] ([facility]) Glomerular Filtration Rate 9.3 Below low normal [facility] ([facility]) <content>Units are mL/min/1.73 m2</content>
<content></content>
<content>Chronic Kidney Disease Staging per NKF:</content>
<content></content>
<content>Stage I & II GFR >=60 Normal to Mildly Decreased</content>
<content>Stage III GFR 30- 59 Moderately Decreased</content>
<content>Stage IV GFR 15-29 Severely Decreased</content>
<content>Stage V GFR <15 Very Little GFR Left</content>
<content>ESRD GFR <15 on BISQUE WARE DIPPER</content>
<content></content> Sodium Level 140 meq/L 136-145 Normal (applies to non-numeric res ults) [facility] ([facility]) Creatinine For GFR 4.84 mg/dL 0.55-1.30 Above high normal [facility] ([facility]) Carbon Dioxide Level 24 meq/L 21-32 Normal (applies to non-num sylvester results) [facility] ([facility]) Potassium Serum 4.9 meq/L 3.5-5.1 Normal (applies to non-numeric results) [facility] ([facility]) Chloride Level 108 meq/L 98-107 Above high normal [facility] ([facility]) Calcium Level 7.8 mg/dL 8.8-10.2 Below low normal [facility] ([facility]) Anion Gap 8 meq/L 8-16 Normal (applies to non-numeric resul ts) [facility]) ID Date Data Source [id number] 08/11/2020 10:32:00 AM EDT [facility] ([facility]) Name Value Range Interpretation Code Description Data Allyssa rce(s) Supporting Document(s) Potassium [Moles/volume] in Serum or Plasma 4.9 meq/L 3.5- 5.1 Normal (applies to non-numeric results) [facility] ([facility] ) ID Date Data Source [id number] 08/06/2020 10:00:00 AM EDT [facility] Name Value Range Interpretation Code Description Data Allyssa rce(s) Supporting Document(s) SARS coronavirus 2 RNA [facility] This lab was ordered by [facility] and reported by [facility]. Procedure Social History Code Duration Value Status Description Data Source(s ) Smoking 04/01/2021 12:00:00 AM EDT Patient has never smoked co mpleted Patient has never smoked [facility] ([facility]) Vital Signs ID Date Data Source UNK Name Value Range Interpretation Code Description Data Source(s) Systolic blood pressure 138 mm[Hg] 138 mm[Hg] [facility] Body temperature 98.2 [degF] 98.2 [degF] [facility] ([facility]) Body weight 45.814 kg 45.814 kg [facility] ([facility]) Body surface area Derived from formula 1.48 m2 1.48 m2 [facility] ([facility]) Diastolic blood pressure 68 mm[Hg] 68 mm[Hg] [facility] ([facility]) Body height 65 [in_i] 65 [in_i] [facility] ([facility]) 5'5" Body weight 101.00 [lb_av] 101.00 [lb_av] [facility] ([facility]) Body mass index (BMI) [Ratio] 16.8 kg/m2 16.8 k g/m2 [facility] ([facility]) [place] body weight 125 [lb_av] 125 [lb_av] [facility] ([facility]) Systolic blood pressure 162 mm[Hg] 162 mm[Hg] [facility] ([facility]) Heart rate 76 /min 76 /min [facility] ([facility]) Diastolic blood pressure 70 mm[Hg] 70 mm[Hg] [facility] ([facility]) Body weight 102.00 [lb_av] 102.00 [lb_av] [facility] ([facility]) Body mass index (BMI) [Ratio] 17.0 kg/m2 17.0 k g/m2 [facility] ([facility]) [place] body weight 125 [lb_av] 125 [lb_av] [facility] ([facility]) Body weight 46.267 kg 46.267 kg [facility] ([facility]) Body surface area Derived from formula 1.49 m2 1.49 m2 [facility] ([facility]) Body height 65 [in_i] 65 [in_i] [facility] ([facility]) 5'5" Body height 65 [in_i] 65 [in_i] [facility] ([facility]) 5'5" Body weight 102.00 [lb_av] 102.00 [lb_av] [facility] ([facility]) Body mass index (BMI) [Ratio] 17.0 kg/m2 17.0 k g/m2 [facility] ([facility]) [place] body weight 125 [lb_av] 125 [lb_av] [facility] ([facility]) Body weight 46.267 kg 46.267 kg [facility] ([facility]) Body surface area Derived from formula 1.49 m2 1.49 m2 [facility] ([facility]) Diastolic blood pressure 71 mm[Hg] 71 mm[Hg] [facility] ([facility]) Body weight 105.38 [lb_av] 105.38 [lb_av] [facility] ([facility]) Body mass index (BMI) [Ratio] 17.5 kg/m2 17.5 k g/m2 [facility] ([facility]) Systolic blood pressure 157 mm[Hg] 157 mm[Hg] [facility] ([facility]) Body height 65 [in_i] 65 [in_i] [facility] ([facility]) 5'5" [place] body weight 125 [lb_av] 125 [lb_av] [facility] ([facility]) Body weight 47.798 kg 47.798 kg [facility] ([facility]) Body surface area Derived from formula 1.51 m2 1.51 m2 [facility] ([facility]) Body mass index (BMI) [Ratio] 18.5 kg/m2 18.5 k g/m2 [facility] ([facility]) Heart rate 65 /min 65 /min [facility] ([facility]) [place] body weight 125 [lb_av] 125 [lb_av] [facility] ([facility]) Oxygen saturation in Arterial blood by Pulse oximetry 94 % 94 % [facility] ([facility]) Body temperature 99.0 [degF] 99.0 [degF] [facility] ([facility]) Body weight 50.406 kg 50.406 kg [facility] ([facility]) Body surface area Derived from formula 1.54 m2 1.54 m2 [facility] ([facility]) Body height 65 [in_i] 65 [in_i] [facility] ([facility]) 5'5" Body weight 111.12 [lb_av] 111.12 [lb_av] [facility] ([facility]) Systolic blood pressure 102 mm[Hg] 102 mm[Hg] [facility]) Diastolic blood pressure 70 mm[Hg] 70 mm[Hg] [facility] ([facility]) Body weight 112.00 [lb_av] 112.00 [lb_av] [facility] ([facility]) Body height 65 [in_i] 65 [in_i] [facility] ([facility]) 5'5" Body mass index (BMI) [Ratio] 18.6 kg/m2 18.6 k g/m2 [facility] ([facility]) [place] body weight 125 [lb_av] 125 [lb_av] [facility] ([facility]) Body weight 50.803 kg 50.803 kg [facility] ([facility]) Body surface area Derived from formula 1.55 m2 1.55 m2 [facility] ([facility]) Systolic blood pressure 137 mm[Hg] 137 mm[Hg] [facility]) Diastolic blood pressure 82 mm[Hg] 82 mm[Hg] [facility] ([facility]) Body height 65 [in_i] 65 [in_i] [facility] ([facility]) 5'5" Body weight 112.12 [lb_av] 112.12 [lb_av] [facility] ([facility]) Body mass index (BMI) [Ratio] 18.7 kg/m2 18.7 k g/m2 [facility] ([facility]) [place] body weight 125 [lb_av] 125 [lb_av] [facility] ([facility]) Body weight 50.860 kg 50.860 kg [facility] ([facility]) Body surface area Derived from formula 1.55 m2 1.55 m2 [facility] ([facility]) Systolic blood pressure 140 mm[Hg] 140 mm[Hg] [facility] ([facility]) Diastolic blood pressure 80 mm[Hg] 80 mm[Hg] [facility] ([facility]) Heart rate 80 /min 80 /min [facility] ([facility]) Oxygen saturation in Arterial blood by Pulse oximetry 97 % 97 % [facility] ([facility]) Body temperature 97.1 [degF] 97.1 [degF] [facility] ([facility]) Body height 65 [in_i] 65 [in_i] [facility] ([facility]) 5'5" Body weight 101.00 [lb_av] 101.00 [lb_av] [facility] ([facility]) Body mass index (BMI) [Ratio] 16.8 kg/m2 16.8 k g/m2 [facility] ([facility]) [place] body weight 125 [lb_av] 125 [lb_av] [facility] ([facility]) Body weight 45.814 kg 45.814 kg [facility] ([facility]) Body surface area Derived from formula 1.48 m2 1.48 m2 [facility] ([facility]) Body mass index (BMI) [Ratio] 16.2 kg/m2 16.2 k g/m2 [facility] ([facility]) Body weight 44.226 kg 44.226 kg [facility] ([facility]) [place] body weight 125 [lb_av] 125 [lb_av] [facility] ([facility]) Systolic blood pressure 120 mm[Hg] 120 mm[Hg] [facility]) Diastolic blood pressure 70 mm[Hg] 70 mm[Hg] [facility] ([facility]) Body height 65 [in_i] 65 [in_i] [facility] ([facility]) 5'5" Body weight 97.50 [lb_av] 97.50 [lb_av] [facility] ([facility]) Systolic blood pressure 138 mm[Hg] 138 mm[Hg] [facility] ([facility], ) Body height 65 [in_i] 65 [in_i] [facility] ([facility], ) 5'5" Body weight 100.00 [lb_av] 100.00 [lb_av] [facility] ([facility], ) Body mass index (BMI) [Ratio] 16.6 kg/m2 16.6 k g/m2 [facility] ([facility]) [place] body weight 125 [lb_av] 125 [lb_av] [facility] ([facility]) Body weight 45.360 kg 45.360 kg [facility] ([facility]) Diastolic blood pressure 80 mm[Hg] 80 mm[Hg] [facility] ([facility])
--- OUTSIDE RECORDS SUMMARY | 2021-08-09 08:35 | CCD | Continuity of Care Document ---
Author Author Bettye PENDLETON MD Organization Unknown Address [address], [address] [place] [address] Phone [phone] Care Team Providers Care Belt Builder Name Role Phone AUTM Unavailable Stefania Tolentino M.D. AUTM [phone] Lizandro Colbert M.D. AUTM [phone] AUTM Unavailable Problems Active Problems Provider Date [...] 1 tab by mouth every day Unknown Candice-Leslie Tablets daily Unknown Prednisone 10mg Tablets Ev [...] lb BMI (Body Mass Index) 16.8 kg/m2 [place] Body Weight 125 lb Weight 45.814 kg BSA (Body Surface Area) 1.48 m2 04/22/2021 10:42am BP Systolic 162 mmHg BP Diastolic 70 mmHg Heart Rate 76 /min Height 65 inches 5'5" Weight 102.00 lb BMI (Body Mass Index) 17.0 kg/m2 [place] Body Weight 125 lb Weight 46.267 kg BSA (Body Surface Area) 1.49 m2 Results Test Acquired Date Facility Test Result H/L Range Note Laboratory test finding 03/25/2021 [facility] Main Lab [address] [place] [address] [phone] Potassium Serum 4.2 mEq/L Normal 3.5-5.1 1 1 By: SANIR Time: 621 By: SANIR Time: 621 Procedures Date Code Description Status 03/29/2021 11580 Office/Outpatient Established Lo w MDM 20-29 Min Completed 03/25/2021 54142 Arteriovenous Anastomosis, Open By Basilic Vein Transposition Completed 01/07/2021 23687 Office/Outpatient Established Lo w MDM 20-29 Min Completed 01/05/2021 38825 Office/Outpatient Established Lo w [facility] 20-29 Min Completed Medical Devices Description No Information Available Encounters Type Date Location Provider Dx Diagnosis Office Visit 04/22/2021 10:30a [facility] Jacque melendez MD N18.6 End stage renal disease Z48.812 Encntr for surgical aftcr fo llowing surgery on the circ sys Office Visit 04/01/2021 1:30p [facility] JUNITO Atkins N18.6 End stage renal disease Z99.2 Dependence on renal dialysis Z48.812 Encntr for surgical aftcr fo llowing surgery on the circ sys Office Visit 03/29/2021 3:30p [facility] Pulmonary/Thoracic Armen huitron D.O. R91.8 Other nonspecific abnormal finding of caty ng field N18.6 End stage renal disease R04.2 Hemoptysis Office Visit 01/07/2021 2:45p [facility] Jacque melendez MD N18.6 End stage renal disease Z99.2 Dependence on renal dialysis Office Visit 01/05/2021 11:15a [facility] JUNITO Atkins N18.6 End stage renal disease Z99.2 Dependence on renal dialysis Assessments Date Code Description Provider 04/22/2021 N18.6 End stage renal disease Jacque [...] N18.6 End stage renal disease Armen english D.OMxaine 03/29/2021 R04.2 Hemoptysis Armen Sauer D.OMaxine 03/25/2021 T82.590A 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
--- OUTSIDE RECORDS SUMMARY | 2021-08-09 08:35 | CCD | Continuity of Care Document ---
Author Author Bettye CARPENTER MD Organization Unknown Address [address], [address] [place] [address] Phone [phone] Care Team Providers Care Cutter Aluminum Sheet Name Role Phone AUTM Unavailable Stefania Tolentino M.D. AUTM [phone] Lizandro Colbert M.D. AUTM [phone] AUTM Unavailable Problems Active Problems Provider Date [...] lb BMI (Body Mass Index) 16.8 kg/m2 [place] Body Weight 125 lb Weight 45.814 kg BSA (Body Surface Area) 1.48 m2 04/22/2021 10:42am BP Systolic 162 mmHg BP Diastolic 70 mmHg Heart Rate 76 /min Height 65 inches 5'5" Weight 102.00 lb BMI (Body Mass Index) 17.0 kg/m2 [place] Body Weight 125 lb Weight 46.267 kg BSA (Body Surface Area) 1.49 m2 Results Test Acquired Date Facility Test Result H/L Range Note Laboratory test finding 03/25/2021 [facility] Main Lab [address] [place] [address] [phone] Potassium Serum 4.2 mEq/L Normal 3.5-5.1 1 1 By: JAZMIN Time: 621 By: SANEMELINA Time: 621 Procedures Date Code Description Status 07/13/2021 30339 Removal Of Tunneled Central Venous Catheter W/O Subcutaneous Port Completed 06/24/2021 05543 Office/Outpatient Established Lo w MDM 20-29 Min Completed 03/29/2021 09628 Office/Outpatient Established Lo w MDM 20-29 Min Completed 03/25/2021 94195 Arteriovenous Anastomosis, Open By Basilic Vein Transposition Completed Medical Devices Description No Information Available Encounters Type Date Location Provider Dx Diagnosis Office Visit 06/24/2021 9:30a [facility] Sukhdev Carpenter MD N18.6 End stage renal disease Office Visit 04/22/2021 10:30a [facility] Practice Jacque melendez MD N18.6 End stage renal disease Z48.812 Encntr for surgical aftcr fo llowing surgery on the circ sys Office Visit 04/01/2021 1:30p [facility] Practice JUNITO Atkins N18.6 End stage renal disease Z99.2 Dependence on renal dialysis Z48.812 Encntr for surgical aftcr fo llowing surgery on the circ sys Office Visit 03/29/2021 3:30p [facility] Pulmonary/Thoracic Armen huitron D.O. R91.8 Other nonspecific abnormal finding of caty ng field N18.6 End stage renal disease R04.2 Hemoptysis Assessments Date Code Description Provider 07/13/2021 N18.9 Chronic kidney disease, unspecif ied Sukhdev Carpenter MD 07/13/2021 Z45.2 Encounter for adjust ment and management of vascular access device Sukhdev Carpenter MD 06/24/2021 N18.6 End stage renal disease Sukhdev lawson MD 04/22/2021 N18.6 End stage renal disease Jacque adrian MD 04/22/2021 Z48.812 Encounter for surgic al aftercare following surgery on the circulatory system Jaqcue Jean MD 04/01/2021 N18.6 End stage renal disease JUNITO Grace 04/01/2021 Z99.2 Dependence on renal dialysis JUNITO Gaitan 04/01/2021 Z48.812 Encounter for surgic al aftercare following surgery on the circulatory system JUNITO Umana 03/29/2021 R91.8 Abnormal findings on diagnostic imaging of lung Nina Bee.OMaxine 03/29/2021 N18.6 End stage renal disease Armen english D.OMaxine 03/29/2021 R04.2 Hemoptysis Nina Bee.OMaxine 03/25/2021 T82.590A 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, initial encounter Jacque Jean MD 03/25/2021 N18.6 End stage renal disease Jacque adrian MD Plan of Treatment Future Appointment(s):* 07/19/2021 1:00 pm - Logan Hidalgo MD at [facility] 06/24/2021 - Sukhdev Carpenter MD* N18.6 End stage renal disease Functional Status Description No Information Available Mental Status Description No Information Available Referrals Refer to Reason for Referral Status Appt Date Sukhdev Carpenter MD CATH REMOVAL Scheduled 06/24/2021 [address] [facility] [address] [place] [address] [phone] Radiology/Procedure [id number] Closed 02/09/2021
[2021-08-09 09:20] LABS: HEMOGLOBIN 11.3 g/dl (12.0-15.5); MEAN CORPUSCULAR HEMOGLOBIN 28.4 pg (27.0-33.0); MEAN CORPUSCULAR HGB CONC 32.3 g/dl (32.0-36.5); MEAN CORPUSCULAR VOLUME 87.9 fl (80.0-96.0); RED BLOOD COUNT 3.98 10^6/uL (4.00-5.40)
[2021-08-09 09:46] LABS: ALBUMIN 2.2 GM/DL (3.2-5.2); BILIRUBIN,DIRECT 0.3 MG/DL (0.0-0.2); CALCIUM LEVEL 8.2 MG/DL (8.8-10.2); CREATININE FOR GFR 5.8 MG/DL (0.55-1.30); GLOMERULAR FILTRATION RATE 7.5 (>39); POTASSIUM SERUM 4.6 MEQ/L (3.5-5.1); TOTAL PROTEIN 5.3 GM/DL (6.4-8.2)
[2021-08-09 09:52] LABS: PLATELET COUNT, AUTOMATED 85 10^3/uL (150-450)
[2021-08-09 09:56] LABS: ATYPICAL LYMPH 4 % (0-5); LYMPHOCYTES 7 % (16-44); MONOCYTES 3 % (0-5); NEUTROPHILS 84 % (28-66); PLATELET ESTIMATE DECREASED (NORMAL)
--- OUTSIDE RECORDS SUMMARY | 2021-08-09 10:03 | CCD ---
Author Author [facility] Organization [facility] Address Unknown Phone Unavailable Care Team Providers Care Assistant Manager Bilingual Name Role Phone Dimitri CARPENTER MD Unavailable [...] Unavailable WHITE, M ELY PA Unavailable Unavailable HWITE, M ELY PA Unavailable Unavailable WHITE, M [...] is protected by Article 27-F of the [facility] Public Health law. If you continue you may have access to information: Regarding HIV / AIDS; Provided by facilities licensed or operated by the [facility] Office of Mental Health; or Provided by the [facility] Office for People With Developmental Disabilities. If such information is present, then the following [facility] mandated warning applies: This information has been [...] law may result in a fine or fdc sentence or both. A general authorization for the release of medical or other information is NOT sufficient authorization for further disc losure. Encounters Encounter Providers Location Date Indications Data Source(s ) Outpatient Attender: GREGORY Macdonald/Carol/Javier/Alejandro 06/24/2021 09:30:00 AM EDT [facility] ([facility]) Office Visit Attender: Jacque Macdonald/Carol/Javier/ Alejandro 04/22/2021 10:30:00 AM EDT [facility] ([facility]) Office Visit Attender: Lien Macdonald/Carol/Javier/R eindl 04/01/2021 01:30:00 PM EDT [facility] ([facility]) Outpatient Attender: VY METZ DO Renae/Dallas/Javier/Reindl 03/29/2021 03:30:00 PM EDT [facility] ([facility]) Outpatient Attender: Jacque Marioang/Dallas/Javier/ Reindl 01/07/2021 02:45:00 PM EDT [facility] ([facility]) Outpatient Attender: Lien Macedo RPA Renae/Dallas/Javier/R eindl 01/05/2021 11:15:00 AM EDT [facility] ([facility]) Outpatient Attender: VY METZ DO Renae/Dallas/Javier/Reindl 08/25/2020 10:00:00 AM EST [facility] ([facility]) Office Visit Attender: Lien Macedo RPA Renae/Dallas/Javier/R eindl 08/18/2020 09:00:00 AM EDT [facility] ([facility]) Outpatient Attender: ELY Marioang/Dallas/Javier/Rein dl 07/08/2020 01:23:00 AM EDT [facility] ([facility]) Outpatient Attender: VY METZ DO Renae/Dallas/Javier/Reindl 07/07/2020 01:23:00 AM EDT [facility] ([facility]) Outpatient Attender: Jacque Macdonald/D[place]/Javier/ Reindl 07/06/2020 02:30:00 PM EDT [facility] ([facility]) Outpatient Attender: Jacque Macdonald/[place]/Javier/ Reindl 07/06/2020 12:00:00 PM EDT [facility] ([facility]) Medications Medication Brand Name Start Date [...] type / Coverage type Policy ID Covered libertarian ID Covered libertarian's relationship to franks Policy Franks [place] Information [place] [id number] SP [id number] C MEDICARE [id number] SP [id number] [place] [id number] SP [id number] [place] O [id number] S [id number] MEDICARE C [id number] S [id number] MEDICAID M [id number] S [id number] MEDICAID [id number] SP [id number] MEDICARE [id number] SP [id number] M MEDICAID UNAVAILABLE UNAVAILA BLE MEDICARE C [id number] S [id number] M [id number] M Problems, Conditions, and Diagnoses Code Display Name Description Problem Type Effective Dates Data Source(s) N18.6 End-stage renal disease End-stage renal disease Proble m 03/29/2021 12:00:00 AM EDT [facility] ([facility], ) R04.2 Hemoptysis Hemoptysis Problem 03/29/2021 12:00:00 AM ED T [facility] ([facility], ) R91.8 Abnormal findings on diagnostic imaging of lung Abnormal findings on diagnostic imaging of lung Problem 08/25/2020 12:00:00 AM EST [facility] ([facility], ) R04.0 Bleeding from nose Bleeding from nose Problem 0 12:00:00 AM EST [facility] ([facility], ) Surgeries/Procedures Procedure Description Date Indications Data Source(s) Removal Of Tunneled Central Venous Catheter W/O Subcutaneous Port 07/13/2021 12:00:00 AM EDT [facility] ([facility], ) OFFICE OUTPATIENT VISIT 15 MINUTES 06/24/2021 12:00:00 AM EDT [facility] ([facility], ) OFFICE OUTPATIENT VISIT 15 MINUTES 03/29/2021 12:00:00 AM EDT [facility] ([facility], ) ARVEN ANAST OPN UPR ARM BASILIC VEIN TRPOS 03/25/2021 12:00:00 AM EDT [facility] ([facility]) OFFICE OUTPATIENT VISIT 15 MINUTES 01/07/2021 12:00:00 AM EDT [facility] ([facility]) OFFICE OUTPATIENT VISIT 15 MINUTES 01/05/2021 12:00:00 AM EDT [facility] Av Fistula Artery-Vein 08/11/2020 12:00:00 AM EDT [facility] ([facility]) Results ID Date Data Source [id number] 03/25/2021 06:37:00 AM EDT [facility]) Name Value Range Interpretation Code Description Data Allyssa rce(s) Supporting Document(s) Potassium [Moles/volume] in Serum or Plasma 4.2 meq/L 3.5- 5.1 Normal (applies to non-numeric results) [facility] ) By: SANIR Time: 621 By: SANIR Time: 621 ID Date Data Source [id number] 03/20/2021 10:40:00 AM EDT [facility] Name Value Range Interpretation Code Description Data Allyssa rce(s) Supporting Document(s) SARS-CoV-2 (COVID-19) RNA [Presence] in Respiratory specimen by JOSHUA with probe detection Not Detected [facility] This lab was ordered by [facility] and reported by [employer]. ID Date Data Source [id number] 08/11/2020 10:32:00 AM EDT [facility] ([facility]) Name Value Range Interpretation Code Description Data Allyssa rce(s) Supporting Document(s) Glucose, Fasting 108 mg/dL 70-100 Above high normal [facility]) Blood Urea Nitrogen 57 mg/dL 7-18 Above high normal [facility]) Glomerular Filtration Rate 9.3 Below low normal [facility] ([facility]) <content>Units are mL/min/1.73 m2</content>
<content></content>
<content>Chronic Kidney Disease Staging per NKF:</content>
<content></content>
<content>Stage I & II GFR >=60 Normal to Mildly Decreased</content>
<content>Stage III GFR 30- 59 Moderately Decreased</content>
<content>Stage IV GFR 15-29 Severely Decreased</content>
<content>Stage V GFR <15 Very Little GFR Left</content>
<content>ESRD GFR <15 on SYSTEMS PROGRAMMER ANALYST</content>
<content></content> Sodium Level 140 meq/L 136-145 Normal (applies to non-numeric res ults) [facility] ([facility]) Creatinine For GFR 4.84 mg/dL 0.55-1.30 Above high normal [facility] ([facility]) Carbon Dioxide Level 24 meq/L 21-32 Normal (applies to non-num sylvester results) [facility] ([facility]) Potassium Serum 4.9 meq/L 3.5-5.1 Normal (applies to non-numeric results) [facility] ([facility]) Chloride Level 108 meq/L 98-107 Above high normal [facility] ([facility]) Calcium Level 7.8 mg/dL 8.8-10.2 Below low normal [facility] ([facility]) Anion Gap 8 meq/L 8-16 Normal (applies to non-numeric resul ts) [facility]) ID Date Data Source [id number] 08/11/2020 10:32:00 AM EDT [facility] ([facility]) Name Value Range Interpretation Code Description Data Allyssa rce(s) Supporting Document(s) Potassium [Moles/volume] in Serum or Plasma 4.9 meq/L 3.5- 5.1 Normal (applies to non-numeric results) [facility] ([facility] ) ID Date Data Source [id number] 08/06/2020 10:00:00 AM EDT [facility] Name Value Range Interpretation Code Description Data Allyssa rce(s) Supporting Document(s) SARS coronavirus 2 RNA [facility] This lab was ordered by [facility] and reported by [facility]. Procedure Social History Code Duration Value Status Description Data Source(s ) Smoking 04/01/2021 12:00:00 AM EDT Patient has never smoked co mpleted Patient has never smoked [facility] ([facility]) Vital Signs ID Date Data Source UNK Name Value Range Interpretation Code Description Data Source(s) Systolic blood pressure 138 mm[Hg] 138 mm[Hg] [facility] ([facility]) Body weight 45.814 kg 45.814 kg [facility] ([facility]) Body surface area Derived from formula 1.48 m2 1.48 m2 [facility] ([facility]) Body temperature 98.2 [degF] 98.2 [degF] [facility] ([facility]) Diastolic blood pressure 68 mm[Hg] 68 mm[Hg] [facility] ([facility]) Body weight 101.00 [lb_av] 101.00 [lb_av] [facility] ([facility]) Body height 65 [in_i] 65 [in_i] [facility] ([facility]) 5'5" [place] body weight 125 [lb_av] 125 [lb_av] [facility] ([facility]) Body mass index (BMI) [Ratio] 16.8 kg/m2 16.8 k g/m2 [facility] ([facility]) Systolic blood pressure 162 mm[Hg] 162 mm[Hg] [facility] ([facility]) Diastolic blood pressure 70 mm[Hg] 70 mm[Hg] [facility] ([facility]) Heart rate 76 /min 76 /min [facility] ([facility]) Body mass index (BMI) [Ratio] 17.0 kg/m2 17.0 k g/m2 [facility] ([facility]) Body weight 102.00 [lb_av] 102.00 [lb_av] [facility] ([facility]) [place] body weight 125 [lb_av] 125 [lb_av] [facility] ([facility]) Body weight 46.267 kg 46.267 kg [facility] ([facility]) Body surface area Derived from formula 1.49 m2 1.49 m2 [facility] ([facility]) Body height 65 [in_i] 65 [in_i] [facility] ([facility]) 5'5" Body height 65 [in_i] 65 [in_i] [facility] ([facility]) 5'5" Body weight 102.00 [lb_av] 102.00 [lb_av] [facility] ([facility]) Body mass index (BMI) [Ratio] 17.0 kg/m2 17.0 k g/m2 [facility]) [place] body weight 125 [lb_av] 125 [lb_av] [facility] ([facility]) Body weight 46.267 kg 46.267 [facility] Body surface area Derived from formula 1.49 m2 1.49 m2 [facility] ([facility]) Diastolic blood pressure 71 mm[Hg] 71 mm[Hg] [facility] ([facility]) Body weight 105.38 [lb_av] 105.38 [lb_av] [facility] ([facility]) Body mass index (BMI) [Ratio] 17.5 kg/m2 17.5 k g/m2 [facility] ([facility]) [place] body weight 125 [lb_av] 125 [lb_av] [facility] ([facility]) Body weight 47.798 kg 47.798 kg [facility] ([facility]) Body surface area Derived from formula 1.51 m2 1.51 m2 [facility] ([facility]) Systolic blood pressure 157 mm[Hg] 157 mm[Hg] [facility] ([facility]) Body height 65 [in_i] 65 [in_i] [facility] ([facility]) 5'5" Heart rate 65 /min 65 /min [facility] ([facility]) Oxygen saturation in Arterial blood by Pulse oximetry 94 % 94 % [facility] ([facility]) Body temperature 99.0 [degF] 99.0 [degF] [facility] ([facility]) Body mass index (BMI) [Ratio] 18.5 kg/m2 18.5 k g/m2 [facility] ([facility]) [place] body weight 125 [lb_av] 125 [lb_av] [facility] ([facility]) Body height 65 [in_i] 65 [in_i] [facility] 5'5" Body weight 111.12 [lb_av] 111.12 [lb_av] [facility] ([facility]) Systolic blood pressure 102 mm[Hg] 102 mm[Hg] [facility] ([facility]) Diastolic blood pressure 70 mm[Hg] 70 mm[Hg] [facility] ([facility]) Body weight 50.406 kg 50.406 kg [facility] ([facility]) Body surface area Derived from formula 1.54 m2 1.54 m2 [facility] ([facility]) Body height 65 [in_i] 65 [in_i] [facility] ([facility]) 5'5" Body weight 112.00 [lb_av] 112.00 [lb_av] [facility] ([facility]) Body mass index (BMI) [Ratio] 18.6 kg/m2 18.6 k g/m2 [facility] ([facility]) [place] body weight 125 [lb_av] 125 [lb_av] [facility] ([facility]) Body weight 50.803 kg 50.803 kg [facility] ([facility]) Body surface area Derived from formula 1.55 m2 1.55 m2 [facility] ([facility]) Systolic blood pressure 137 mm[Hg] 137 mm[Hg] [facility] ([facility]) Diastolic blood pressure 82 mm[Hg] 82 mm[Hg] [facility] ([facility]) Body height 65 [in_i] 65 [in_i] [facility] ([facility]) 5'5" Body weight 112.12 [lb_av] 112.12 [lb_av] [facility] ([facility]) Body mass index (BMI) [Ratio] 18.7 kg/m2 18.7 k g/m2 [facility] ([facility]) [place] body weight 125 [lb_av] 125 [lb_av] [facility] ([facility]) Body weight 50.860 kg 50.860 kg [facility] ([facility]) Body surface area Derived from formula 1.55 m2 1.55 m2 [facility] ([facility]) Systolic blood pressure 140 mm[Hg] 140 mm[Hg] [facility] ([facility]) Diastolic blood pressure 80 mm[Hg] 80 mm[Hg] [facility] ([facility]) Heart rate 80 /min 80 /min [facility] ([facility]) Oxygen saturation in Arterial blood by Pulse oximetry 97 % 97 % [facility] ([facility]) Body temperature 97.1 [degF] 97.1 [degF] [facility] ([facility]) Body height 65 [in_i] 65 [in_i] [facility] ([facility]) 5'5" Body weight 101.00 [lb_av] 101.00 [lb_av] [facility] ([facility]) Body mass index (BMI) [Ratio] 16.8 kg/m2 16.8 k g/m2 [facility] ([facility]) [place] body weight 125 [lb_av] 125 [lb_av] [facility] ([facility]) Body weight 45.814 kg 45.814 kg [facility] ([facility]) Body surface area Derived from formula 1.48 m2 1.48 m2 [facility] ([facility]) Body mass index (BMI) [Ratio] 16.2 kg/m2 16.2 k g/m2 [facility] ([facility]) [place] body weight 125 [lb_av] 125 [lb_av] [facility] ([facility]) Body weight 44.226 kg 44.226 kg [facility] ([facility]) Systolic blood pressure 120 mm[Hg] 120 mm[Hg] [facility] Diastolic blood pressure 70 mm[Hg] 70 mm[Hg] [facility] ([facility]) Body height 65 [in_i] 65 [in_i] [facility] ([facility]) 5'5" Body weight 97.50 [lb_av] 97.50 [lb_av] [facility] ([facility]) Systolic blood pressure 138 mm[Hg] 138 mm[Hg] [facility] Body weight 100.00 [lb_av] 100.00 [lb_av] [facility] Body mass index (BMI) [Ratio] 16.6 kg/m2 16.6 k g/m2 [facility] ([facility]) [place] body weight 125 [lb_av] 125 [lb_av] [facility] Body weight 45.360 kg 45.360 kg [facility] ([facility]) Body height 65 [in_i] 65 [in_i] [facility] ([facility], ) 5'5" Diastolic blood pressure 80 mm[Hg] 80 mm[Hg] [facility] ([facility])
--- NOTE | 2021-08-09 10:19 | ECGEPIP ---
[facility] - ED Test Date: 2021-08-09 Pat Name: CARON CHOI Department: Room: - Gender: Female Transit Man: MAREKOFELIA : 1940 Requested By: Ryan Goff Order Number: [id number] Reading MD: Link Barclay Measurements Intervals [place] Rate: 85 P: 55 RI: 144 QRS: -16 QRSD: 88 T: 33 QT: 356 QTc: 423 Interpretive Statements Normal sinus rhythm Minimal voltage criteria for LVH, may be normal variant ( Jackson product ) Nonspecific ST-T wave abnormalities Similar to tracing done 07-13-20 Electronically Signed on 08-09-2021 10:19:15 EDT by Link Barclay
[2021-08-09 10:27] LABS: BACTERIA, URINE AUTO 3+ (NEGATIVE); RBC, URINE AUTO 4 /HPF (0-3); SQUAMOUS EPITHELIAL CELL UR AU 0 /HPF (0-6); WBC, URINE AUTO 41 /HPF (0-3)
[2021-08-09 10:39] LABS: RSV AMPLIFICATION NEGATIVE (NEGATIVE)
[2021-08-09 10:40] LABS: APPEARANCE, URINE CLOUDY (CLEAR); COLOR, URINE AMBER (YELLOW); GLUCOSE, URINE (UA) AUTO NEGATIVE (NEGATIVE); KETONE, URINE AUTO NEGATIVE (NEGATIVE); PROTEIN, URINE AUTO 3+ mg/dL (NEGATIVE); SPECIFIC GRAVITY URINE AUTO 1.008 (1.002-1.035)
[2021-08-09 10:42] LABS: BILIRUBIN, URINE AUTO NEGATIVE (NEGATIVE); NITRITE, URINE AUTO NEGATIVE (NEGATIVE)
[2021-08-09 10:43] LABS: BLOOD, URINE BLOOD 1+ (NEGATIVE); LEUKOCYTE ESTERASE, URINE AUTO 2+ (NEGATIVE)
--- NOTE | 2021-08-09 10:43 | REP ---
INDICATION: FUO COMPARISON: 07/29/2020 TECHNIQUE: Portable AP view of the chest FINDINGS: Mediastinum and cardiac silhouette are stable. Lung alvarado again demonstrate diffuse suspected emphysematous and chronic changes. No focal consolidation, obvious effusion, or pneumothorax. Skeletal structures are stable. IMPRESSION: Chronic stable changes similar to prior examination. No acute cardiopulmonary process appreciated. <Electronically signed by Driss Richardson > 08/09/21 [id number]
--- NOTE | 2021-08-09 11:53 | REP ---
INDICATION: ESRD on HD, pyelonephritis COMPARISON: 04/26/2020. TECHNIQUE: CT Scan of the abdomen and pelvis was performed without intravenous contrast. Sagittal and coronal reconstruction images performed. FINDINGS: Lung bases: There are small bilateral pleural effusions with adjacent patchy atelectasis or infiltrate. Liver: Grossly unremarkable. Gallbladder: Unremarkable. Spleen: Grossly unremarkable. Adrenals: Normal. Pancreas: Grossly unremarkable.. Kidneys: No hydronephrosis or nephrolithiasis. Ureters demonstrate no dilatation or calculus. Small and large bowel: There is no obstruction. Scattered diverticula are seen of the colon. There is possible focal wall thickening of the superior rectum, possibly inflammatory or neoplastic. Free fluid: There is mild free fluid in the pelvis. Abdominal aorta: No aneurysm. Adenopathy: None. Appendix: Not inflamed. Osseous structures: There are degenerative changes of the spine without compression deformity. Pelvis: The urinary bladder is not well distended. There is a tiny amount of air in the bladder lumen. Multiple small calcified fibroids are seen in the uterus. IMPRESSION: Small bilateral pleural effusions with adjacent patchy atelectasis or infiltrate. No free air or bowel obstruction. Possible focal inflammatory or neoplastic wall thickening of the superior rectum. Mild free fluid in the pelvis. No hydronephrosis bilaterally. <Electronically signed by Rex Manjarrez > 08/09/21 [id number]
--- OUTSIDE RECORDS SUMMARY | 2021-08-09 14:27 | CCD ---
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 If you continue you may have access to information: Regarding HIV / AIDS; Provided by facilities licensed or operated by the [facility] Office of Mental Health; or Provided by the [facility] Office for People With Developmental Disabilities. If such information is present, then the following [facility] mandated warning applies: This information has been [...] law may result in a fine or long-term sentence or both. A general authorization for the release of medical or other information is NOT sufficient authorization for further disc losure. Encounters Encounter Providers Location Date Indications Data Source(s ) Outpatient Attender: GREGORY Macdonald/Carol/Javier/Alejandro 06/24/2021 09:30:00 AM EDT [facility] ([facility]) Office Visit Attender: Jacque Macdonald/Carol/Javier/ Alejandro 04/22/2021 10:30:00 AM EDT [facility] ([facility]) Office Visit Attender: Lien Macdonald/Carol/Javier/R eindl 04/01/2021 01:30:00 PM EDT [facility] ([facility]) Outpatient Attender: VY METZ DO Ernae/[place]/Javier/Reindl 03/29/2021 03:30:00 PM EDT [facility] ([facility]) Outpatient Attender: Jacque Marioang/[place]/Javier/ Reindl 01/07/2021 02:45:00 PM EDT [facility] ([facility]) Outpatient Attender: Lien Macedo RPA Renae/[place]/Javier/R eindl 01/05/2021 11:15:00 AM EDT [facility] ([facility]) Outpatient Attender: VY METZ DO Renae/[place]/Javier/Reindl 08/25/2020 10:00:00 AM EST [facility] ([facility]) Office Visit Attender: Lien Macedo RPA Renae/[place]/Javier/R eindl 08/18/2020 09:00:00 AM EDT [facility] ([facility]) Outpatient Attender: ELY Marioang/[place]/Javier/Rein dl 07/08/2020 01:23:00 AM EDT [facility] ([facility]) Outpatient Attender: VY METZ DO Renae/[place]/Javier/Reindl 07/07/2020 01:23:00 AM EDT [facility] ([facility]) Outpatient Attender: Jacque Macdonald/[place]/Javier/ Reindl 07/06/2020 02:30:00 PM EDT [facility] ([facility]) Outpatient Attender: Jacque Macdonald/[place]/Javier/ Reindl 07/06/2020 12:00:00 PM EDT [facility] ([facility]) Medications Medication Brand Name Start Date Product [...] type / Coverage type Policy ID Covered green party ID Covered green party's relationship to franks Policy Franks [place] Information [place] [id number] SP [id number] C MEDICARE [id number] SP [id number] [place]ED[place] [id number] SP [id number] [place] O [id number] S [id number] MEDICARE C [id number] S [id number] MEDICAID [id number] S [id number] MEDICAID [id number] SP [id number] MEDICARE [id number] SP [id number] M MEDICAID UNAVAILABLE UNA[place]ILA BLE MEDICARE C [id number] S [id number] M [id number] M Problems, Conditions, and Diagnoses Code Display Name Description Problem Type Effective Dates Data Source(s) N18.6 End-stage renal disease End-stage renal disease Proble m 03/29/2021 12:00:00 AM EDT [facility] ([facility], ) R04.2 Hemoptysis Hemoptysis Problem 03/29/2021 12:00:00 AM ED T [facility] ([facility], ) R91.8 Abnormal findings on diagnostic imaging of lung Abnormal findings on diagnostic imaging of lung Problem 08/25/2020 12:00:00 AM EST [facility] ([facility], ) R04.0 Bleeding from nose Bleeding from nose Problem 0 12:00:00 AM EST [facility] ([facility], ) Surgeries/Procedures Procedure Description Date Indications Data Source(s) Removal Of Tunneled Central Venous Catheter W/O Subcutaneous Port 07/13/2021 12:00:00 AM EDT [facility] ([facility] ) OFFICE OUTPATIENT VISIT 15 MINUTES 06/24/2021 12:00:00 AM EDT [facility] ([facility], ) OFFICE OUTPATIENT VISIT 15 MINUTES 03/29/2021 12:00:00 AM EDT [facility] ([facility], ) ARVEN ANAST OPN UPR ARM BASILIC VEIN TRPOS 03/25/2021 12:00:00 AM EDT [facility] ([facility]) OFFICE OUTPATIENT VISIT 15 MINUTES 01/07/2021 12:00:00 AM EDT [facility] ([facility]) OFFICE OUTPATIENT VISIT 15 MINUTES 01/05/2021 12:00:00 AM EDT [facility]) Av Fistula Artery-Vein 08/11/2020 12:00:00 AM EDT [facility] ([facility]) Results ID Date Data Source [id number] 03/25/2021 06:37:00 AM EDT [facility] ([facility]) Name Value Range Interpretation Code Description Data Allyssa rce(s) Supporting Document(s) Potassium [Moles/volume] in Serum or Plasma 4.2 meq/L 3.5- 5.1 Normal (applies to non-numeric results) [facility] ([facility] ) By: SANIR Time: 621 By: SANIR Time: 621 ID Date Data Source [id number] 03/20/2021 10:40:00 AM EDT [facility] Name Value Range Interpretation Code Description Data Allyssa rce(s) Supporting Document(s) SARS-CoV-2 (COVID-19) RNA [Presence] in Respiratory specimen by JOSHUA with probe detection Not Detected [facility] This lab was ordered by [facility] and reported by [email or web address]. ID Date Data Source [id number] 08/11/2020 10:32:00 AM EDT [facility] ([facility]) Name Value Range Interpretation Code Description Data Allyssa rce(s) Supporting Document(s) Glucose, Fasting 108 mg/dL 70-100 Above high normal [facility] Blood Urea Nitrogen 57 mg/dL 7-18 Above high normal [facility] ([facility]) Glomerular Filtration Rate 9.3 Below low normal [facility] ([facility]) <content>Units are mL/min/1.73 m2</content>
<content></content>
<content>Chronic Kidney Disease Staging per NKF:</content>
<content></content>
<content>Stage I & II GFR >=60 Normal to Mildly Decreased</content>
<content>Stage III GFR 30- 59 Moderately Decreased</content>
<content>Stage IV GFR 15-29 Severely Decreased</content>
<content>Stage V GFR <15 Very Little GFR Left</content>
<content>ESRD GFR <15 on FRONT LOADER RESIDENTIAL DRIVER</content>
<content></content> Sodium Level 140 meq/L 136-145 Normal (applies to non-numeric res ults) [facility] ([facility]) Creatinine For GFR 4.84 mg/dL 0.55-1.30 Above high normal [facility] ([facility]) Carbon Dioxide Level 24 meq/L 21-32 Normal (applies to non-num sylvester results) [facility] ([facility]) Potassium Serum 4.9 meq/L 3.5-5.1 Normal (applies to non-numeric results) [facility] ([facility]) Chloride Level 108 meq/L 98-107 Above high normal [facility] ([facility]) Calcium Level 7.8 mg/dL 8.8-10.2 Below low normal [facility] ([facility]) Anion Gap 8 meq/L 8-16 Normal (applies to non-numeric resul ts) [facility]) ID Date Data Source [id number] 08/11/2020 10:32:00 AM EDT [facility] ([facility]) Name Value Range Interpretation Code Description Data Allyssa rce(s) Supporting Document(s) Potassium [Moles/volume] in Serum or Plasma 4.9 meq/L 3.5- 5.1 Normal (applies to non-numeric results) [facility] ([facility] ) ID Date Data Source [id number] 08/06/2020 10:00:00 AM EDT [facility] Name Value Range Interpretation Code Description Data Allyssa rce(s) Supporting Document(s) SARS coronavirus 2 RNA [facility] This lab was ordered by [facility] and reported by [email or web address]. Procedure Social History Code Duration Value Status Description Data Source(s ) Smoking 04/01/2021 12:00:00 AM EDT Patient has never smoked co mpleted Patient has never smoked [facility] ([facility]) Vital Signs ID Date Data Source UNK Name Value Range Interpretation Code Description Data Source(s) Systolic blood pressure 138 mm[Hg] 138 mm[Hg] [facility] Diastolic blood pressure 68 mm[Hg] 68 mm[Hg] [facility] ([facility]) Body weight 45.814 kg 45.814 kg [facility] ([facility]) Body temperature 98.2 [degF] 98.2 [degF] [facility] ([facility]) Body surface area Derived from formula 1.48 m2 1.48 m2 [facility] ([facility]) Body height 65 [in_i] 65 [in_i] [facility] ([facility]) 5'5" Body weight 101.00 [lb_av] 101.00 [lb_av] [facility] ([facility]) Body mass index (BMI) [Ratio] 16.8 kg/m2 16.8 k g/m2 [facility] ([facility]) [place] body weight 125 [lb_av] 125 [lb_av] [facility] ([facility]) Systolic blood pressure 162 mm[Hg] 162 mm[Hg] [facility] ([facility]) Diastolic blood pressure 70 mm[Hg] 70 mm[Hg] [facility] ([facility]) Heart rate 76 /min 76 /min [facility] ([facility]) Body weight 102.00 [lb_av] 102.00 [lb_av] [facility] ([facility]) Body mass index (BMI) [Ratio] 17.0 kg/m2 17.0 k g/m2 [facility] ([facility]) [place] body weight 125 [lb_av] 125 [lb_av] [facility] ([facility]) Body weight 46.267 kg 46.267 kg [facility] ([facility]) Body surface area Derived from formula 1.49 m2 1.49 m2 [facility] ([facility]) Body height 65 [in_i] 65 [in_i] [facility] ([facility]) 5'5" Body height 65 [in_i] 65 [in_i] [facility] ([facility]) 5'5" Body weight 102.00 [lb_av] 102.00 [lb_av] [facility] ([facility]) Body mass index (BMI) [Ratio] 17.0 kg/m2 17.0 k g/m2 [facility] ([facility]) [place] body weight 125 [lb_av] 125 [lb_av] [facility] ([facility]) Body weight 46.267 kg 46.267 kg [facility]) Body surface area Derived from formula 1.49 m2 1.49 m2 [facility] ([facility]) Diastolic blood pressure 71 mm[Hg] 71 mm[Hg] [facility] ([facility]) Body weight 105.38 [lb_av] 105.38 [lb_av] [facility] ([facility]) Body mass index (BMI) [Ratio] 17.5 kg/m2 17.5 k g/m2 [facility] ([facility]) Systolic blood pressure 157 mm[Hg] 157 mm[Hg] [facility] ([facility]) Body height 65 [in_i] 65 [in_i] [facility] ([facility]) 5'5" [place] body weight 125 [lb_av] 125 [lb_av] [facility] ([facility]) Body weight 47.798 kg 47.798 kg [facility] ([facility]) Body surface area Derived from formula 1.51 m2 1.51 m2 [facility] ([facility]) Body mass index (BMI) [Ratio] 18.5 kg/m2 18.5 k g/m2 [facility] ([facility]) [place] body weight 125 [lb_av] 125 [lb_av] [facility] ([facility]) Heart rate 65 /min 65 /min [facility] ([facility]) Oxygen saturation in Arterial blood by Pulse oximetry 94 % 94 % [facility] ([facility]) Body temperature 99.0 [degF] 99.0 [degF] [facility] ([facility]) Body weight 50.406 kg 50.406 kg [facility] ([facility]) Body surface area Derived from formula 1.54 m2 1.54 m2 [facility] ([facility]) Body height 65 [in_i] 65 [in_i] [facility] 5'5" Body weight 111.12 [lb_av] 111.12 [lb_av] [facility] ([facility]) Systolic blood pressure 102 mm[Hg] 102 mm[Hg] [facility] Diastolic blood pressure 70 mm[Hg] 70 mm[Hg] [facility] ([facility]) Body height 65 [in_i] 65 [in_i] [facility] ([facility]) 5'5" Body weight 112.00 [lb_av] 112.00 [lb_av] [facility] ([facility]) Body mass index (BMI) [Ratio] 18.6 kg/m2 18.6 k g/m2 [facility] ([facility]) [place] body weight 125 [lb_av] 125 [lb_av] [facility] ([facility]) Body weight 50.803 kg 50.803 kg [facility] ([facility]) Body surface area Derived from formula 1.55 m2 1.55 m2 [facility] ([facility]) Systolic blood pressure 137 mm[Hg] 137 mm[Hg] [facility] Diastolic blood pressure 82 mm[Hg] 82 mm[Hg] [facility] ([facility]) Body height 65 [in_i] 65 [in_i] [facility] ([facility]) 5'5" Body weight 112.12 [lb_av] 112.12 [lb_av] [facility] ([facility]) Body mass index (BMI) [Ratio] 18.7 kg/m2 18.7 k g/m2 [facility] ([facility]) [place] body weight 125 [lb_av] 125 [lb_av] [facility] ([facility] Body weight 50.860 kg 50.860 kg [facility] ([facility]) Body surface area Derived from formula 1.55 m2 1.55 m2 [facility] ([facility]) Systolic blood pressure 140 mm[Hg] 140 mm[Hg] [facility] ([facility]) Diastolic blood pressure 80 mm[Hg] 80 mm[Hg] [facility] ([facility]) Heart rate 80 /min 80 /min [facility] ([facility]) Oxygen saturation in Arterial blood by Pulse oximetry 97 % 97 % [facility] ([facility]) Body temperature 97.1 [degF] 97.1 [degF] [facility] ([facility]) Body height 65 [in_i] 65 [in_i] [facility] ([facility]) 5'5" Body weight 101.00 [lb_av] 101.00 [lb_av] [facility] ([facility]) Body mass index (BMI) [Ratio] 16.8 kg/m2 16.8 k g/m2 [facility] ([facility]) [place] body weight 125 [lb_av] 125 [lb_av] [facility] ([facility]) Body weight 45.814 kg 45.814 kg [facility] ([facility]) Body surface area Derived from formula 1.48 m2 1.48 m2 [facility] ([facility]) [place] body weight 125 [lb_av] 125 [lb_av] [facility] ([facility]) Body weight 44.226 kg 44.226 kg [facility] ([facility]) Body mass index (BMI) [Ratio] 16.2 kg/m2 16.2 k g/m2 [facility] ([facility]) Diastolic blood pressure 70 mm[Hg] 70 mm[Hg] [facility] ([facility]) Systolic blood pressure 120 mm[Hg] 120 mm[Hg] [facility] Body height 65 [in_i] 65 [in_i] [facility] ([facility]) 5'5" Body weight 97.50 [lb_av] 97.50 [lb_av] [facility] ([facility]) Diastolic blood pressure 80 mm[Hg] 80 mm[Hg] [facility] ([facility]) Systolic blood pressure 138 mm[Hg] 138 mm[Hg] [facility] Body weight 100.00 [lb_av] 100.00 [lb_av] [facility] ([facility]) Body height 65 [in_i] 65 [in_i] [facility] ([facility]) 5'5" Body mass index (BMI) [Ratio] 16.6 kg/m2 16.6 k g/m2 [facility] ([facility]) Body weight 45.360 kg 45.360 kg [facility] ([facility]) [place] body weight 125 [lb_av] 125 [lb_av] [facility] ([facility])
[2021-08-09] MEDS ORDERED: AMLO1TAB25 PO (14:37)
[2021-08-09] MEDS ORDERED: LevoFLOXacin IV 750 MG in IV 1 EA IV ONE (15:30)
--- NOTE | 2021-08-09 15:46 | HPEPDOC ---
[facility] Medical History & Physical Date of Admission Aug 09, 2021 Date of Service: Aug 09, 2021 Attending Physician: ASHER JEWELL MD History and Physical CHIEF COMPLAINT: Subjective fever, generalized weakness, poor PO belly cramping HISTORY OF PRESENT ILLNESS: 80 y/o W with a hx of ESRD on HD on M, W, F, paroxysmal afib, microscopic polyangiitis diagnosed in 1998, and vitamin D deficiency, who presented to the [facility] ED reporting that she has been feeling unwell with generalized weakness, subjective fevers, poor appetite and cramping abdominal pain for 3d. She last had HD on Monday (4d ago) and was feeling well after, but by Monday morning she began feeling poorly. She missed HD today and instead presented to the ED for evaluation. She otherwise denies any persistent diarrhea outside of 2 loose stools over the weekend, that were non bloody. She denies hemoptysis, hematemesis, melena, chest pain, palpitations, productive cough, congestion, rhinorrhea, emesis episodes, rashes or bleeding. In the ED she was hemodynamically stable and had a recorded low grade temp of 100 that was an oral temp but had a verbally reported temporal reading of 102 at the beginning. She defervesced without any intervention. Workup was notable for leukocytosis to WBC 13, stable anemia with Hgb 11.3, thrombocytopenia with platelets 85, UA that showed 3+ bacteria, 2+ leukocyte esterase, had 42 WBCx, AST 84, ALT 99, lipase 422, na 135, K 4.6, BUN 60, Cr 5.8, mag 1.9, while CXR showed small bilateral pleural effusion without other noted acute cardiopulmonary abnormalities and CT A/P showed some focal superior rectum wall thickening with otherwise no free air. She is now being admitted to medicine for potential sepsis likely 2/2 a UTI vs. focal colitis. REVIEW OF SYSTEMS: All 10 points have been reviewed. 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 Has two adult children, both sons Denies alcohol Denies illicit drug use Denies nicotine use HOME MEDICATIONS: Please see below. PHYSICAL EXAMINATION: VITAL SIGNS: see below GENERAL APPEARANCE: Cachectic, chronically ill appearing woman in NAD, AOx3 HEENT: NCAT, EOMI, MMM, wears dentures, in place. Anicteric sclerae. Bitemporal wasting Neck: supple, no tracheal deviation, no JVD CARDIOVASCULAR: RRR, systolic murmur LUNGS: No wheezing or crackles. Moving air well. Has bibasilar rhonchi posteriorly. Breathing comfortably on room air ABDOMEN: Normoactive bowel sounds, soft, has some discomfort but otherwise am able to perform deep palpation throughout without guarding or grimacing. EXTREMITIES: L>R lower extremities, reportedly per baseline. Otherwise WWP without significant edema. has RUE fistula with a palpable thrill and ecchymosis around it from use. NEUROLOGICAL: AAox3, speech is clear, moving all extremities with full strength against resistance PSYCHIATRIC: AOx3 LABORATORY DATA and IMAGING: reviewed above, otherwise please see below for full details MICROBIOLOGY: Please see below. Assessment and Plan 80 y/o elderly W w/ ESRD on M,W,F HD, anemia of chronic disease, uncontrolled hypertension, microscopic polyangiitis with lung involvement, CAD with moderate pulmonary hypertension, vit D deficient, paroxysmal afib, now being admitted to medicine for potential sepsis likely 2/2 a UTI vs. focal colitis. Potential early sepsis with low grade temp recorded and leukocytosis: -Source is suspected to the urinary given ++UA but also concern for in traabdominal pathology given pain, transaminitis and focal rectal wall thickening -will give IV levaquin 750mg once, with goal to have renally dosed levaquin that can be switched to 500 Q48H, hopefully as PO -f/u UCx, BCx -nephrology planning on HD tomorrow, so can give levaquin now ESRD on HD (MWF) -2/2 Microscopic polyangitis. -Nephrology has been consulted, planning on HD tomorrow Anemia of chronic disease -receives aranesp per nephrology, stable Secondary hyperparathyroidism. -calcitriol Microscopic polyangiitis with lung involvement. -stable for now, will continue home meds per med rec when completed Severe protein calorie malnutrition BMI of 17.4, low albumin , bitemporal wasting and diffuse muscular wasting. 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 -Known Mild and Mild AR and Mild MR. -EF low normal 50% to 55% per prior TTE Vitamin D deficiency -c/w home calcitriol Paroxysmal atrial fibrillation not on anticoagulation: currently in sinus Physical deconditioning -PT/OT DVT prophylaxis: TEDs and SCDs Vital Signs Vital Signs Date Time Temp Pulse Resp B/P (MAP) Pulse Ox O2 Delivery O2 Flow Rate FiO2 08/09/21 12:45 98.7 81 18 140/65 (90) 94 Room Air Laboratory Data Labs 24H Laboratory Tests 2 08/09/21 09:03: Neutrophils (%) (Auto) , Nucleated Red Blood Cells % (auto) 0.0, Neutrophils 84H, Band Neutrophils 2, Lymphocytes (Manual) 7L, Monocytes (Manual) 3, Atypical Lymphocytes 4, Red Blood Cell Morphology NORMAL, Platelet Estimate DECREASED, Immature Platelet Fraction 7.2, Anion Gap 12, Glomerular Filtration Rate 7.5L, Lactic Acid Level 2.2*H, Calcium Level 8.2L, Total Bilirubin 1.0, Direct Bilirubin 0.3H, Aspartate Amino Transf (AST/SGOT) 84H, Alanine Aminotransferase (ALT/SGPT) 99H, Alkaline Phosphatase 185H, Total Protein 5.3L, Albumin 2.2L, Albumin/Globulin Ratio 0.7L, Lipase 422H, Coronavirus (COVID-19)(PCR) NEGATIVE, Influenza Type A (RT-PCR) NEGATIVE, Influenza Type B (RT-PCR) NEGATIVE, Respiratory Syncytial Virus (PCR) NEGATIVE 08/09/21 10:03: Urine Color KOURTNEY, Urine Appearance CLOUDY, Urine pH 7.0, Urine Specific [place] 1.008, Urine Protein 3+H, Urine Glucose (Auto)(UA) NEGATIVE, Urine Ketones (Auto) NEGATIVE, Urine Blood 1+H, Urine Nitrite NEGATIVE, Urine Bilirubin NEGATIVE, Urine Urobilinogen 2.0H, Urine Leukocyte Esterase (Auto) 2+H, Urine WBC (Auto) 41H, Urine RBC (Auto) 4H, Urine Hyaline Casts (Auto) 0, Urine Bacteria (Auto) 3+H, Urine Squamous Epithelial Cells 0, Urine Sperm (Auto) CBC/BMP Laboratory Tests 08/09/21 09:03 Microbiology Microbiology 08/09/21 Blood Culture, Received Pending 08/09/21 Urine Culture, Received Pending 08/09/21 Blood Culture, Received Pending Home Medications Scheduled Amlodipine Besylate (Amlodipine Besylate) 10 Mg Tablet, 10 MG PO DAILY Furosemide (Furosemide) 20 Mg Tablet, 20 MG PO DAILY Losartan Potassium (Losartan Potassium) 50 Mg Tablet, 50 MG PO QHS Metoprolol Succinate (Metoprolol Succinate) 100 Mg Tab.er.24h, 100 MG PO DAILY Pantoprazole Sodium (Pantoprazole Sodium) 40 Mg Tablet.dr, 40 MG PO DAILY Prednisone (Prednisone) 5 Mg Tablet, 5 MG PO DAILY Scheduled PRN Acetaminophen (Acetaminophen) 500 Mg Tablet, 500 MG PO BID PRN for PAIN Nitroglycerin (Nitrostat) 0.4 Mg Tab.subl, 0.4 MG SL NITRO PRN for CHEST PAIN Oxycodone HCl/Acetaminophen (Oxycodone-Acetaminophen 5-325) 1 Each Tablet, 1 TAB PO TIDP PRN for pain Allergies Coded Allergies: Penicillins (Verified Allergy, Intermediate, RASH, 08/07/20) clarithromycin (Verified Allergy, Intermediate, rash, 08/07/20) isotretinoin (Verified Allergy, Mild, 08/07/20) cortisone (Verified Allergy, Unknown, 08/07/20) lisinopril (Verified Allergy, Unknown, 08/07/20) warfarin (Verified Adverse Reaction, Intermediate, HALLUCINATIONS, 03/24/21) A-FIB/CHADSVASC A-FIB History Current/History of A-Fib/PAF?: Yes Current PO Anticoag Therapy: No Age/Risk Factor Scoring CHADSVASC: CHADSVASC Response (Comments) Value Age Risk Factor Age >/= 75 years old 2 Gender Risk Factor Female 1 Hx of CHF Yes 1 Hx of HTN Yes 1 Hx of Stroke/TIA/or VTE No 0 Hx of Diabetes No 0 Hx of Vascular Disease No 0 Total 5 Treatment Treatment ordered: NONE Reason Anticoagulant not given: Other Other reason anticoagulant not: history of hemoptysis with vasculitis ASHER JEWELL MD Aug 09, 2021 15:01
[2021-08-09] MEDS ORDERED: RENATAB5 PO (16:43)
[2021-08-09] MEDS ORDERED: HOME MED LIST COMPLETE! XX SCH (16:45)
[2021-08-09] MEDS: ACETAMINOPHEN TAB 650MG DOSE (2X325MG) PO PRN (17:02)
[2021-08-09] MEDS ORDERED: NITROGLYCERIN 0.4 MG SUBL TABLET SL PRN (19:35)
[2021-08-09 22:00] VITALS: BP 115/64
[2021-08-10 06:07] VITALS: BP 128/71
[2021-08-10 06:10] LABS: HEMATOCRIT 29.5 % (36.0-47.0); HEMOGLOBIN 9.5 g/dl (12.0-15.5); MEAN CORPUSCULAR HEMOGLOBIN 28.1 pg (27.0-33.0); MEAN CORPUSCULAR HGB CONC 32.2 g/dl (32.0-36.5); MEAN CORPUSCULAR VOLUME 87.3 fl (80.0-96.0); RED BLOOD COUNT 3.38 10^6/uL (4.00-5.40); WHITE BLOOD COUNT 6.4 10^3/uL (4.0-10.0)
[2021-08-10 06:13] LABS: PLATELET COUNT, AUTOMATED 72 10^3/uL (150-450)
[2021-08-10] MEDS: ACETAMINOPHEN TAB 650MG DOSE (2X325MG) PO PRN ×3 (06:16→15:17)
[2021-08-10 06:35] LABS: ALBUMIN 1.8 GM/DL (3.2-5.2); BILIRUBIN,TOTAL 0.8 MG/DL (0.2-1.0); CALCIUM LEVEL 7.4 MG/DL (8.8-10.2); CREATININE FOR GFR 6.72 MG/DL (0.55-1.30); GLOMERULAR FILTRATION RATE 6.3 (>39); POTASSIUM SERUM 4.3 MEQ/L (3.5-5.1); TOTAL PROTEIN 4.6 GM/DL (6.4-8.2)
[2021-08-10] MEDS ORDERED: SODIUM CHLORIDE 0.9% 1000ML IV PRN (07:05)
[2021-08-10] MEDS ORDERED: LIDOCAINE 1% SDV 5ML VIAL SC PRN (07:05)
[2021-08-10] MEDS: PANTOPRAZOLE 40MG TAB (PROTONIX) PO SCH (08:39)
[2021-08-10] MEDS: FUROSEMIDE 20 MG TAB PO SCH (08:39)
[2021-08-10] MEDS ORDERED: predniSONE 5 MG TAB PO SCH (09:00)
[2021-08-10] MEDS ORDERED: METOPROLOL SUCC (TopROL XL) 100MG *XL* TAB PO SCH (09:00)
[2021-08-10] MEDS: DARBEPOETIN 100 MCG/0.5 ML *DIALYSIS* SYRINGE (J0882) IV SCH (10:26)
[2021-08-10 13:01] VITALS: BP 131/74
--- NOTE | 2021-08-10 14:28 | CR ---
CONSULTATION DATE: 08/10/2021 REQUESTING PHYSICIAN: AUBREE BARTH MD CONSULTING PHYSICIAN: RAVIN IVORY DO REASON FOR CONSULTATION: Management of endstage renal disease on hemodialysis in this patient who is being admit with probable urinary tract infection and early sepsis. HISTORY OF PRESENT ILLNESS: Ms. Bettye Ocampo is well-known to me. She is a 80-year-old female with a past medical history of endstage renal disease on hemodialysis via a right arm AV fistula on a Monday, Monday and Monday schedule. Also, with a history of microscopic polyangiitis on chronic prednisone, anemia of chronic renal failure, hypertension, and other comorbid conditions mentioned below. Patient lives alone. She reports she was in her usual state of health up until the past three days when she started to experience generalized fatigue, weakness, subjective fevers, poor appetite and abdominal pain. She denied any dysuria or burning with micturition. Her last dialysis was on Monday. She missed her hemodialysis treatment on Monday and instead presented to the Emergency Room for evaluation. In the Emergency Room she had a low-grade temperature of 100. However, this morning she has spiked a temperature of 102.7. Laboratory studies were notable for a leukocytosis, thrombocytopenia and abnormal urinalysis. Chest x-ray showed a small bilateral pleural effusion. Patient was admit for antibiotics and further evaluation and Nephrology evaluation was requested for help in the management of her endstage renal disease. PAST MEDICAL HISTORY: Endstage renal disease on hemodialysis on Monday, Monday and Monday, microscopic polyangiitis, chronic steroid dependence, hypertension, anemia of chronic renal failure, secondary hyperparathyroidism of renal origin, paroxysmal atrial fibrillation. PAST SURGICAL HISTORY: Significant for Perm-A-Cath placement and arteriovenous fistula creation. FAMILY HISTORY: Reviewed and noncontributory. ALLERGIES: Penicillin, Clarithromycin, cortisone, isotretinoin, Lisinopril, warfarin. SOCIAL HISTORY: Lives alone, her son helps her with grocery shopping, etc. No alcohol, drug or smoking. HOME MEDICATIONS: Reviewed. Prednisone 10 mg p.o. daily, amlodipine 10 mg daily, Lasix 20 mg daily, Losartan 50 mg daily, metoprolol 100 mg p.o. daily, Protonix 40 mg daily, Tylenol p.r.n. REVIEW OF SYSTEMS: CONSTITUTIONAL: Reports fatigue and fevers. EYES: Denies visual changes or tearing. ENT: Denies odynophagia, rhinorrhea, or epistaxis. CARDIAC: Denies chest pain or palpitations. Has a history of paroxysmal atrial fibrillation. RESPIRATORY: Denies shortness of breath or cough. GASTROINTESTINAL: Reports a poor appetite and mild diarrhea that self-resolved. GENITOURINARY: Still makes urine. Denies dysuria or hematuria. ENDOCRINE: Reports secondary hyperparathyroidism and chronic steroid dependence. MUSCULOSKELETAL: Denies myalgias, arthralgias or leg swelling. SKIN: Denies any new rashes or ulcers. NEUROLOGIC: Denies seizure or syncope. HEMATOLOGIC: Reports chronic anemia. Denies anticoagulant use. The remainder of review of systems is negative or as per HPI. PHYSICAL EXAMINATION: VITAL SIGNS: T-max 102.7, T-current 101.0, pulse 98, respiratory rate 16, blood pressure is 128/71, saturating 96% on room air. INTAKE AND OUTPUT: Intake yesterday was not recorded. Urine output was recorded as 1.6 liters. Dialysis today removed minimal fluid, about 500 ml. GENERAL: Patient is seen in the hemodialysis unit receiving her treatment, awake, alert, cooperative and conversational, in no acute distress. HEENT: Extraocular muscles are intact. Tongue is moist. NECK: Supple. Jugular veins are not elevated. HEART: Heart sounds are regular S1 and S2. LUNGS: Symmetric air movement. No crackle or rale, or rhonchus. ABDOMEN: Soft and nontender. There are bowel sounds. EXTREMITIES: Negative for clubbing, cyanosis or edema. There is a fistula on the right arm which is presently in use. NEUROLOGIC: She is oriented to person, place and situation and cooperates with physical exam. LABORATORY DATA: White count is 6.4, hemoglobin is 9.5, platelets are 72,000, sodium is 135, potassium is 4.3, bicarbonate 24, BUN 74, creatinine 6.7. Magnesium is 2.0. Ferritin is 10,000. Transferrin saturation is 15% with iron level of 16. AST and ALT are both elevated at 86 and 87. Albumin was 1.8. Blood culture showed no growth for [address] of the abdomen and pelvis non-contrast done yesterday shows small bilateral pleural effusions, no free air, no bowel obstruction. Possible focal inflammatory or neoplastic wall thickening of the superior rectum. No hydronephrosis. A chest x-ray did not show any acute cardiopulmonary process. INPATIENT MEDICATIONS: Patient is receiving levofloxacin 500 mg IV q. 48 hourly, Tylenol p.r.n., amlodipine 10 mg p.o. daily, Aranesp with dialysis, Lasix 20 mg p.o. daily, metoprolol 100 mg p.o. daily, Protonix 40 mg p.o. daily, prednisone 10 mg p.o. daily. PROBLEMS: 1. Endstage renal disease on hemodialysis on a Monday, Monday and Monday schedule. Patient missed Monday's treatment. She was dialyzed today. She has minimal fluid removed. As an outpatient, patient typically has less than 1 liter removed with each treatment. Her electrolytes and volume status are acceptable. Her fistula is in good use. Next dialysis will be on and we will work to get her back on her maintenance schedule once she is more suitable for discharge. 2. Sepsis. Patient has high-grade fever. T-max today is 102.7. I did get an iron panel to work up her anemia and I was surprised to see that her ferritin was quite significantly elevated at greater than 10,000. Her prior ferritins were reviewed and this is the highest ferritin that she has had on record. Her urinalysis was abnormal. She is being treated for probable UTI. Blood cultures were negative x2 sets and a urine culture is pending. Her white count has normalized. Defer antibiotics to primary service. 3. Chronic hypertension. Because of sepsis, I recommend to decrease the antihypertensive regimen. I am stopping amlodipine at this time and I cut down the dose of Toprol XL. 4. Anemia related to chronic renal failure, iron deficiency and inflammatory state. Iron level was very low at 16 and transferrin saturation of only 15%. I will hold off on IV iron at this time in view of the infectious issues. She continues on Aranesp with dialysis and we will give IV iron when the infectious issues shayan and when her ferritin comes down. Goal hemoglobin is 10 to 11. 5. Chronic prednisone dependence. For history of microscopic polyangiitis, patient has been on prednisone 10 mg daily to the best of my recollection and the patient also endorses current home dose of prednisone as being 10 mg daily, hence the inpatient dose was adjusted to reflect the same. There is no need for stress dose steroids at this time as the patient remains hemodynamically stable. MTDD
[2021-08-10 14:54] VITALS: BP 139/73
[2021-08-10] MEDS ORDERED: ACETAMINOPHEN TAB 650MG DOSE (2X325MG) PO ONE (15:15)
[2021-08-10] MEDS ORDERED: VANCOMYCIN HCL 1,000 MG, VIAL MATE ADAPTER 1 EACH in NS 250 ML IV ONE (16:00)
[2021-08-10] MEDS ORDERED: KETOROLAC 30 MG/ML 1ML VIAL IV ONE (17:00)
[2021-08-10] MEDS: LACTOBACILLUS ACIDOPHILUS CAP (BACID) PO SCH (17:20)
[2021-08-10] MEDS: CEFEPIME HCL 1 GM in D5W MINI-BAG PLUS 50 ML IV SCH (17:21)
--- NOTE | 2021-08-10 17:57 | IPNPDOC ---
Date Seen The patient was seen on 08/10/21. Progress Note SUBJECTIVE: The patient spiked a fever size 102 since last evening. + chills. Fever persisted during the day despite 2 Tylenol doses, Toradol was later given IV. She has a stage III coccyx decubitus which was cultured along with other wounds, GI panel sent to rule out C. difficile. Antibiotics broadened. Multiple nonbloody bowel movements today. The patient denies chest pain, shortness of br eath. OBJECTIVE: PHYSICAL EXAMINATION: VITAL SIGNS: see below GENERAL APPEARANCE: Cachectic, chronically ill appearing woman in NAD, AOx3 HEENT: NCAT, EOMI, MMM, wears dentures, in place. Anicteric sclerae. Bitemporal wasting Neck: supple, no tracheal deviation, no JVD CARDIOVASCULAR: sinus tachycardia, systolic murmur LUNGS: No wheezing or crackles. Moving air well. Breathing comfortably on room air ABDOMEN: Normoactive bowel sounds, soft, has some discomfort but otherwise am able to perform deep palpation throughout without guarding or grimacing. EXTREMITIES: L>R lower extremities, reportedly per baseline. Otherwise WWP without significant edema. has RUE fistula with a palpable thrill and ecchymosis around it from use. INTEG: Multiple Stage II decub ulcers, coccyx and buttocks. Also one behind neck. NEUROLOGICAL: AAox3, speech is clear, moving all extremities with full strength against resistance PSYCHIATRIC: AOx3 LABORATORY DATA: Please see below MICRO: BCx NG x 24 hours Decubitus ulcer cx: sent C. diff neg GI panel: ordered UCx pending IMAGING: CT abd/pelvis: Small bilateral pleural effusions with adjacent patchy atelectasis or infiltrate. No free air or bowel obstruction. Possible focal inflammatory or neoplastic wall thickening of the superior rectum. Mild free fluid in the pelvis. No hydronephrosis bilaterally. MICROBIOLOGY: Please see below. Assessment and Plan 80 y/o elderly W w/ ESRD on M,W,F HD, anemia of chronic disease, uncontrolled hypertension, microscopic polyangiitis with lung involvement, CAD with moderate pulmonary hypertension, vit D deficient, paroxysmal afib, now being admitted to medicine for sepsis likely 2/2 a UTI vs. ?focal colitis, r/o other sources. UTI, sepsis -Febrile despite being on abx (levofloxacin), tachycardia, chills -Source is suspected to the urinary given ++UA but also concern for intraabdominal pathology given pain, transaminitis and focal rectal wall thickening -F/u UCx -BCx neg -Daily CBC, monitor for low BP. If drops consider STRESS DOSE STEROIDS, adrenal crisis. -Broadened abx to Vancomycin and cefepime. Diarrhea, r/o colitis, sepsis -Febrile despite being on abx (levofloxacin), tachycardia, chills ->5 nonbloody liquid bowel movements -GI panel ordered to r/o C. diff -BCx neg -Daily CBC, monitor for low BP. If drops consider STRESS DOSE STEROIDS, adrenal crisis. -Broadened abx to Vancomycin and cefepime, probiotic. Clear liquid ? neoplastic wall thickening of the superior rectum -cannot r/o on CT above -Spoke with surgery -Will need further w/u later, when sepsis stabilized Stage II decubitus ulcers coccyx, neck-multiple -Not likely to be source per surgery, Dr. Box. No need for debridement currently -Wound cultures pending, MRSA pending -On Vancomycin, Cefepime ESRD on HD (MWF) 2/2 Microscopic polyangitis -Nephrology consulted Anemia of chronic disease -H/H stable -receives Aranesp per nephrology, stable Secondary hyperparathyroidism. -calcitriol -Nephrology on board Acute thrombocytopenia -PLTs low, not chronic -possibly 2/2 to acute infection -No s/s of bleeding -Monitor with daily CBC -If worsens, consider heme consult Microscopic polyangiitis with lung involvement. -stable for now, will continue home meds per med rec when completed -On steroids Severe protein calorie malnutrition -BMI of 17.4, low albumin , bitemporal wasting and diffuse muscular wasting. Hypertension -c/w home amlodipine, toprol and losartan with hold parameters -If BP starts to trend down with sepsis, d/c all these meds and start stress dose steroids + possibly some fluid. Mild non rheumatic valvular heart disease with Moderate pulmonary hypertension. -Known Mild and Mild AR and Mild MR. -EF low normal 50% to 55% per prior TTE Vitamin D deficiency -c/w home calcitriol Paroxysmal atrial fibrillation not on anticoagulation -STable. - currently in sinus Physical deconditioning -PT/OT DVT prophylaxis: TEDs and SCDs DISPOSITION: switched from obs to acute inpatient status. Nephrology, surgery consulted. Transferring to PCU due to sepsis diagnosis, continued fevers and tachycardia. VS, I&O, 24H, Fishbone Vital Signs/I&O Vital Signs Date Time Temp Pulse Resp B/P (MAP) Pulse Ox O2 Delivery O2 Flow Rate FiO2 08/10/21 16:32 102.5 08/10/21 14:54 97 12 139/73 (95) 99 Room Air I&O- Last 24 Hours up to 6 AM 08/10/21 06:00 Intake Total 200 ml Output Total 1600 ml Balance -1400 ml Laboratory Data 24H LABS Laboratory Tests 2 08/10/21 05:33: Nucleated Red Blood Cells % (auto) 0.0, Anion Gap 10, Glomerular Filtration Rate 6.3L, Calcium Level 7.4L, Magnesium Level 2.0, Iron Level 16L, Total Iron Binding Capacity 107L, Transferrin % Saturation 15.0, Ferritin 65655C, Total Bilirubin 0.8, Aspartate Amino Transf (AST/SGOT) 86H, Alanine Aminotransferase (ALT/SGPT) 87H, Alkaline Phosphatase 159H, Total Protein 4.6L, Albumin 1.8L, Albumin/Globulin Ratio 0.6L 08/10/21 08:42: Methicillin-Resist S.aureus DNA PCR NOT DETECTED CBC/BMP Laboratory Tests 08/10/21 05:33 Microbiology Microbiology 08/10/21 Gram Stain, Received Pending 08/10/21 Wound Culture, Received Pending 08/10/21 Gram Stain, Received Pending 08/10/21 Wound Culture, Received Pending 08/10/21 Gram Stain, Received Pending 08/10/21 Wound Culture, Received Pending 08/10/21 - Final, Complete 08/09/21 Blood Culture - Preliminary, Resulted No growth after 24 hours . All specim... 08/09/21 Urine Culture, Received Pending 08/09/21 Blood Culture - Preliminary, Resulted No growth after 24 hours . All specim... Sherry Ortiz MD Aug 10, 2021 17:57
[2021-08-10 18:00] LABS: C REACTIVE PROTEIN QUANTITATIV 11.5 MG/DL (0.00-0.30)
[2021-08-10 18:45] LABS: ERYTHROCYTE SEDIMENTATION RATE 13 mm/hr (0-30)
[2021-08-10 19:07] VITALS: BP 95/54
[2021-08-10 21:06] VITALS: BP 92/53
[2021-08-10 21:10] VITALS: BP 100/58
[2021-08-11] VITALS: BP 107/66
[2021-08-11 04:00] VITALS: BP 126/70
[2021-08-11 05:25] LABS: HEMATOCRIT 30.4 % (36.0-47.0); HEMOGLOBIN 9.9 g/dl (12.0-15.5); MEAN CORPUSCULAR HEMOGLOBIN 28.3 pg (27.0-33.0); MEAN CORPUSCULAR HGB CONC 32.6 g/dl (32.0-36.5); MEAN CORPUSCULAR VOLUME 86.9 fl (80.0-96.0); PLATELET COUNT, AUTOMATED 51 10^3/uL (150-450); WHITE BLOOD COUNT 4.8 10^3/uL (4.0-10.0)
[2021-08-11 05:49] LABS: ALBUMIN 1.7 GM/DL (3.2-5.2); BILIRUBIN,TOTAL 0.8 MG/DL (0.2-1.0); CALCIUM LEVEL 7.4 MG/DL (8.8-10.2); CREATININE FOR GFR 4.31 MG/DL (0.55-1.30); GLOMERULAR FILTRATION RATE 10.5 (>39); MAGNESIUM LEVEL 1.8 MG/DL (1.8-2.4); POTASSIUM SERUM 4.1 MEQ/L (3.5-5.1); TOTAL PROTEIN 4.6 GM/DL (6.4-8.2)
--- NOTE | 2021-08-11 06:08 | CR.PDOC ---
General Surgery Consultation Date of Consultation 08/11/21 History and Physical CONSULT REPORT FOR: Sabina Ortiz MD (hospitalist service) REASON FOR CONSULTATION: pressure ulcers HISTORY OF PRESENT ILLNESS: I was asked to evaluate the patient with regards to pressure ulcer wounds on her buttock area as well as at the base of her neck for possible cause of her febrile episodes. In brief she is a 80-year-old female with end-stage renal disease on hemodialysis who was admitted overnight for weakness, febrile episodes, crampy abdominal pain for the past 3 days or so. She had a presumptive diagnosis of a UTI. She was started on antibiotics overnight. Despite of this she continues to have fevers up to 102 degrees Fahrenheit. She is also having increased diarrhea. They are checking her for C. difficile colitis. I am that I saw the patient results are pending. She was noted to have some skin breakdown over the sacral/left buttock area also at the midline at the base of her neck. Patient appears confused when I saw her and was not giving him much of the details. She appears to live independently by herself so I presume she is able to move around at least at home and to regular daily activities of living independently. She goes to dialysis 3 times a week. Last dialysis was last Monday and reportedly she was doing well up until after that dialysis. When her symptoms started. At the time I saw the patient she appears quite weak, needing some assist to turn her during the examination. 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 Has two adult children, both sons Denies alcohol Denies illicit drug use Denies nicotine use ALLERGIES: Please see below. HOME MEDICATIONS: Please see below. REVIEW OF SYSTEMS: Patient reports she was on her baseline health up till dialysis on Monday. After that she started feeling weak. Also is reporting some mild diarrhea, intermittent fevers up to 102 at home. She denies any sick contacts. She lives herself. She denies any chest pain or shortness of breath. She reports crampy abdominal pain related to the diarrhea. She reports that she has regular bowel movements prior. She has not had any prior colonoscopies. She appears to be very frail, unclear if she is losing weight. She has diagnosis of microscopic polyangiitis and she has been chronically on prednisone for this. PHYSICAL EXAMINATION: VITALS SIGNS: Please see below. Patient seen initially laying flat in bed, she is awake. She appears confused. She appears very frail. Abdomen is soft, nondistended no real tenderness that I could elicit on palpation. I had her turn to her sides to examine her wound. She has notable wasting with loose skin, not much subcutaneous tissue, drooping skin and subcu at the buttock area. She had a foam dressing to the left of the midline and I looked at the area. She has 2 areas where there is mild skin necrosis about the size of a dime with surrounding denuded skin. I do not feel any fluctuance underneath. She does not have much subcu at the area. Also on the base of the neck at the back at the midline is a similar appearing smaller denuded skin without any underlying subcutaneous fluctuance or induration. Both areas have no surrounding skin erythema ANCILLARIES: . LABORATORY DATA: Please see below. IMAGING STUDIES: She had a CT abdomen and pelvis performed 08/09/2021 and this shows no free air, no signs of bowel obstruction. There is some thickening of the superior rectum of unknown etiology. IMPRESSION AND PLAN: Patient has been getting pressure ulcers. I do not think this are the sources of the fever. No signs of cellulitis complaint is no soft tissue induration I could see. Suggest making sure that the patient turns and involved physical t herapy, Occupational Therapy early to prevent decline of her physical status. At this time I do not think there is any need for debridement. Continue to protect the area with foam dressing to be changed as needed. There is some abnormal focal finding on the upper rectum on the noncontrast CT of unclear etiology. She is having some loose stools, it appears nonbloody, thick soft brown ill formed stools that I could see when I was examining her. Her C. difficile returned negative. I had asked him to send this for GI panel and this also returned negative. She does not report any prior history of colonoscopy. I suggest when she is all better that she have an outpatient colonoscopy done for further evaluation of the abnormal findings on CT. I do not see any need to schroeder this at this point specially that she is confused and probably will not be able to do proper prep. Vital Signs Vital Signs Date Time Temp Pulse Resp B/P (MAP) Pulse Ox O2 Delivery O2 Flow Rate FiO2 08/11/21 04:00 97.7 84 18 126/70 (88) 94 Room Air I&Os I&O- Last 24 Hours up to 6 AM 08/11/21 06:00 Intake Total 250 ml Output Total 900 ml Balance -650 ml Laboratory Data Labs 24H Laboratory Tests 2 08/10/21 08:42: Methicillin-Resist S.aureus DNA PCR NOT DETECTED 08/11/21 05:11: Nucleated Red Blood Cells % (auto) 0.0, Immature Platelet Fraction 6.8 CBC/BMP Laboratory Tests 08/11/21 05:11 Microbiology Microbiology 08/10/21 Gastrointestinal Tract Panel (PCR) - Final, Complete 08/10/21 Gram Stain, Received Pending 08/10/21 Wound Culture, Received Pending 08/10/21 Gram Stain, Received Pending 08/10/21 Wound Culture, Received Pending 08/10/21 Gram Stain, Received Pending 08/10/21 Wound Culture, Received Pending 08/10/21 - Final, Complete 08/09/21 Blood Culture - Preliminary, Resulted No growth after 24 hours . All specim... 08/09/21 Urine Culture, Received Pending 08/09/21 Blood Culture - Preliminary, Resulted No growth after 24 hours . All specim... Home Medications Scheduled Amlodipine Besylate (Amlodipine Besylate) 10 Mg Tablet, 10 MG PO DAILY, (Reported) Folic Acid/Vit B Complex and C (Candice-Leslie Tablet) 0.8 Mg Tablet, 1 TAB PO DAILY, (Reported) Furosemide (Furosemide) 20 Mg Tablet, 20 MG PO DAILY, (Reported) Metoprolol Succinate (Metoprolol Succinate) 100 Mg Tab.er.24h, 100 MG PO DAILY, (Reported) Pantoprazole Sodium (Pantoprazole Sodium) 40 Mg Tablet.dr, 40 MG PO DAILY, (Reported) Prednisone (Prednisone) 5 Mg Tablet, 5 MG PO DAILY, (Reported) Scheduled PRN Acetaminophen (Acetaminophen) 500 Mg Tablet, 500 MG PO BID PRN for PAIN, (Reported) Nitroglycerin (Nitrostat) 0.4 Mg Tab.subl, 0.4 MG SL NITRO PRN for CHEST PAIN, (Reported) Allergies Coded Allergies: Penicillins (Verified Allergy, Intermediate, RASH, 08/07/20) clarithromycin (Verified Allergy, Intermediate, rash, 08/07/20) isotretinoin (Verified Allergy, Mild, 08/07/20) cortisone (Verified Allergy, Unknown, 08/07/20) lisinopril (Verified Allergy, Unknown, 08/07/20) warfarin (Verified Adverse Reaction, Intermediate, HALLUCINATIONS, 03/24/21) KAILASH STEELE MD Aug 11, 2021 06:08
[2021-08-11 08:00] VITALS: BP 96/58
[2021-08-11] MEDS: PANTOPRAZOLE 40MG TAB (PROTONIX) PO SCH (08:45)
[2021-08-11] MEDS: FUROSEMIDE 20 MG TAB PO SCH (08:45)
[2021-08-11] MEDS: LACTOBACILLUS ACIDOPHILUS CAP (BACID) PO SCH ×2 (08:45→18:07)
[2021-08-11] MEDS: predniSONE 10 MG TAB PO SCH (08:45)
[2021-08-11] MEDS: METOPROLOL SUCC *XL* 25MG TAB (TopROL *XL*) PO SCH (08:50)
[2021-08-11 12:00] VITALS: BP 111/58
[2021-08-11] MEDS ORDERED: LOPERAMIDE 2 MG CAPLET PO PRN (14:30)
--- NOTE | 2021-08-11 14:30 | IPNPDOC ---
Date Seen The patient was seen on 08/11/21. Progress Note SUBJECTIVE: Afebrile since 08/10/21, GI panel neg for infection. Diarrhea improved slightly. Patient feels much improved today but still has some abdominal discomfort.The patient denies chest pain, shortness of breath. OBJECTIVE: PHYSICAL EXAMINATION: VITAL SIGNS: see below GENERAL APPEARANCE: Cachectic, chronically ill appearing woman in NAD, AOx3 HEENT: NCAT, EOMI, MMM, wears dentures, in place. Anicteric sclerae. Bitemporal wasting Neck: supple, no tracheal deviation, no JVD CARDIOVASCULAR: sinus tachycardia, systolic murmur LUNGS: No wheezing or crackles. Moving air well. Breathing comfortably on room air ABDOMEN: Normoactive bowel sounds, soft, has some discomfort but otherwise am able to perform deep palpation throughout without guarding or grimacing. EXTREMITIES: L>R lower extremities, reportedly per baseline. Otherwise WWP without significant edema. has RUE fistula with a palpable thrill and ecchymosis around it from use. INTEG: Multiple Stage II decub ulcers, coccyx and buttocks. Also one behind neck. NEUROLOGICAL: AAox3, speech is clear, moving all extremities with full strength against resistance PSYCHIATRIC: AOx3 LABORATORY DATA: Please see below MICRO: BCx NG x 24 hours Decubitus ulcer cx: sent C. diff neg GI panel: neg UCx E coli IMAGING: CT abd/pelvis: Small bilateral pleural effusions with adjacent patchy atelectasis or infiltrate. No free air or bowel obstruction. Possible focal inflammatory or neoplastic wall thickening of the superior rectum. Mild free fluid in the pelvis. No hydronephrosis bilaterally. MICROBIOLOGY: Please see below. Assessment and Plan 80 y/o elderly W w/ ESRD on M,W,F HD, anemia of chronic disease, uncontrolled hypertension, microscopic polyangiitis with lung involvement, CAD with moderate pulmonary hypertension, vit D deficient, paroxysmal afib, now being admitted to medicine for sepsis likely 2/2 a UTI vs. ?focal colitis, r/o other sources. E. coli UTI, resolved sepsis -resolved fever, tachycardia, chills -Source is suspected to the urinary given ++UA but also concern for intraabdominal pathology given pain, transaminitis and focal rectal wall thickening -BCx neg -Daily CBC -Previously on PO levofloxacin but spiked fevers while on appropriate therapy for UTI. Broadened abx to Vancomycin and cefepime. D/w pharmacy on how to deescalate Diarrhea, r/o colitis, resolved sepsis -Decreasing amount of diarrhea ->5 nonbloody liquid bowel movements -GI panel neg for c. diff -BCx neg -Daily CBC, -CLD, advance to renal diet when appropriate -Previously on PO levofloxacin but spiked fevers. Broadened abx to Vancomycin and cefepime. D/w pharmacy on how to deescalate ? neoplastic wall thickening of the superior rectum -cannot r/o on CT above -Spoke with surgery -Will need further w/u later, refer to surgery note Stage II decubitus ulcers coccyx, neck-multiple -Not likely to be source per surgery, Dr. Box. No need for debridement currently -Wound cultures pending, MRSA neg -Previously on PO levofloxacin but spiked fevers . Broadened abx to Vancomycin and cefepime. D/w pharmacy on how to deescalate ESRD on HD (MWF) 2/2 Microscopic polyangitis -Nephrology following Anemia of chronic disease -H/H stable -receives Aranesp per nephrology, stable Secondary hyperparathyroidism. -calcitriol -Nephrology on board Acute thrombocytopenia, r/o HIT but possibly 2/2 to acute infection -PLTs lower, not chronic -No s/s of bleeding -Monitor with daily CBC -D/c heparin flushes -F/u HIT ab -If worsens, consider heme consult Microscopic polyangiitis with lung involvement. -stable for now, will continue home meds per med rec when completed -On steroids Severe protein calorie malnutrition -BMI of 17.4, low albumin , bitemporal wasting and diffuse muscular wasting. Hypertension -c/w home amlodipine, toprol and losartan with hold parameters -If BP starts to trend down with sepsis, d/c all these meds and start stress dose steroids + possibly some fluid. Mild non rheumatic valvular heart disease with Moderate pulmonary hypertension. -Known Mild and Mild AR and Mild MR. -EF low normal 50% to 55% per prior TTE Vitamin D deficiency -c/w home calcitriol Paroxysmal atrial fibrillation not on anticoagulation -STable. - currently in sinus Physical deconditioning -PT/OT DVT prophylaxis: TEDs and SCDs DISPOSITION: Acute inpatient. Nephrology, surgery consulted. VS, I&O, 24H, Fishbone Vital Signs/I&O Vital Signs Date Time Temp Pulse Resp B/P (MAP) Pulse Ox O2 Delivery O2 Flow Rate FiO2 08/11/21 12:00 96.3 78 16 111/58 (75) 94 Room Air I&O- Last 24 Hours up to 6 AM 08/11/21 06:00 Intake Total 250 ml Output Total 900 ml Balance -650 ml Laboratory Data 24H LABS Laboratory Tests 2 08/11/21 05:11: Nucleated Red Blood Cells % (auto) 0.0, Immature Platelet Fraction 6.8, Anion Gap 11, Glomerular Filtration Rate 10.5L, Calcium Level 7.4L, Magnesium Level 1.8, Total Bilirubin 0.8, Aspartate Amino Transf (AST/SGOT) 121H, Alanine Aminotransferase (ALT/SGPT) 95H, Alkaline Phosphatase 168H, Total Protein 4.6L, Albumin 1.7L, Albumin/Globulin Ratio 0.6L CBC/BMP Laboratory Tests 08/11/21 05:11 Microbiology Microbiology 08/10/21 Gastrointestinal Tract Panel (PCR) - Final, Complete 08/10/21 Gram Stain - Final, Resulted 08/10/21 Wound Culture, Resulted Pending 08/10/21 Gram Stain - Final, Resulted 08/10/21 Wound Culture, Resulted Pending 08/10/21 Gram Stain - Final, Resulted 08/10/21 Wound Culture, Resulted Pending 08/10/21 - Final, Complete 08/09/21 Blood Culture - Preliminary, Resulted No Growth after 48 hours. All Specime... 08/09/21 Urine Culture - Preliminary, Resulted Escherichia Coli 08/09/21 Blood Culture - Preliminary, Resulted No Growth after 48 hours. All Specime... Sherry Ortiz MD Aug 11, 2021 14:30
[2021-08-11] MEDS ORDERED: VANCOMYCIN HCL 500 MG in D5W MINI-BAG PLUS 100 ML IV SCH (15:40)
[2021-08-11 16:00] VITALS: BP 101/57
[2021-08-11] MEDS ORDERED: **VANCO AFTER HD** MISC XX SCH (16:00)
[2021-08-11] MEDS ORDERED: LevoFLOXacin IV 500 MG in IV 1 EA IV SCH (17:00)
[2021-08-11] MEDS: CEFEPIME HCL 1 GM in D5W MINI-BAG PLUS 50 ML IV SCH (18:07)
[2021-08-11 20:00] VITALS: BP 110/58
[2021-08-11] MEDS: cefTRIAXone SOD 1 GM in D5W MINI-BAG PLUS 50 ML IV SCH (21:49)
[2021-08-12] VITALS: BP 106/63
[2021-08-12 04:00] VITALS: BP 110/63
[2021-08-12 05:35] LABS: HEMATOCRIT 30.2 % (36.0-47.0); HEMOGLOBIN 9.8 g/dl (12.0-15.5); MEAN CORPUSCULAR HEMOGLOBIN 28.1 pg (27.0-33.0); MEAN CORPUSCULAR HGB CONC 32.5 g/dl (32.0-36.5); MEAN CORPUSCULAR VOLUME 86.5 fl (80.0-96.0); RED BLOOD COUNT 3.49 10^6/uL (4.00-5.40); WHITE BLOOD COUNT 7.7 10^3/uL (4.0-10.0)
[2021-08-12 05:39] LABS: PLATELET COUNT, AUTOMATED 60 10^3/uL (150-450)
[2021-08-12 06:02] LABS: ALBUMIN 1.5 GM/DL (3.2-5.2); BILIRUBIN,TOTAL 0.6 MG/DL (0.2-1.0); CALCIUM LEVEL 7.3 MG/DL (8.8-10.2); CREATININE FOR GFR 5.53 MG/DL (0.55-1.30); GLOMERULAR FILTRATION RATE 7.9 (>39); TOTAL PROTEIN 4.7 GM/DL (6.4-8.2)
[2021-08-12 07:54] VITALS: BP 121/63
[2021-08-12] MEDS: LACTOBACILLUS ACIDOPHILUS CAP (BACID) PO SCH ×2 (07:59→17:28)
[2021-08-12] MEDS: ACETAMINOPHEN TAB 650MG DOSE (2X325MG) PO PRN (08:00)
[2021-08-12] MEDS: PANTOPRAZOLE 40MG TAB (PROTONIX) PO SCH (08:00)
[2021-08-12] MEDS: FUROSEMIDE 20 MG TAB PO SCH (08:00)
[2021-08-12] MEDS: METOPROLOL SUCC *XL* 25MG TAB (TopROL *XL*) PO SCH (08:00)
[2021-08-12] MEDS: predniSONE 10 MG TAB PO SCH (08:00)
[2021-08-12 14:55] VITALS: BP 135/77
[2021-08-12] MEDS: cefTRIAXone SOD 1 GM in D5W MINI-BAG PLUS 50 ML IV SCH (20:27)
--- NOTE | 2021-08-12 20:48 | IPNPDOC ---
Date Seen The patient was seen on 08/12/21. Progress Note SUBJECTIVE: Patient continues to feel much improved, no abd discomfort. The patient denies chest pain, shortness of breath. OBJECTIVE: PHYSICAL EXAMINATION: VITAL SIGNS: see below GENERAL APPEARANCE: Cachectic, chronically ill appearing woman in NAD, AOx3 HEENT: NCAT, EOMI, MMM, wears dentures, in place. Anicteric sclerae. Bitemporal wasting Neck: supple, no tracheal deviation, no JVD CARDIOVASCULAR: sinus tachycardia, systolic murmur LUNGS: No wheezing or crackles. Moving air well. Breathing comfortably on room air ABDOMEN: Normoactive bowel sounds, soft, has some discomfort but otherwise am able to perform deep palpation throughout without guarding or grimacing. EXTREMITIES: L>R lower extremities, reportedly per baseline. Otherwise WWP without significant edema. has RUE fistula with a palpable thrill and ecchymosis around it from use. INTEG: Multiple Stage II decub ulcers, coccyx and buttocks. Also one behind neck. NEUROLOGICAL: AAox3, speech is clear, moving all extremities with full strength against resistance PSYCHIATRIC: AOx3 LABORATORY DATA: Please see below MICRO: BCx NG x 24 hours Decubitus ulcer cx: sent C. diff neg GI panel: neg UCx E coli IMAGING: CT abd/pelvis: Small bilateral pleural effusions with adjacent patchy atelectasis or infiltrate. No free air or bowel obstruction. Possible focal inflammatory or neoplastic wall thickening of the superior rectum. Mild free fluid in the pelvis. No hydronephrosis bilaterally. MICROBIOLOGY: Please see below. Assessment and Plan 80 y/o elderly W w/ ESRD on M,W,F HD, anemia of chronic disease, uncontrolled hypertension, microscopic polyangiitis with lung involvement, CAD with moderate pulmonary hypertension, vit D deficient, paroxysmal afib, now being admitted to medicine for sepsis likely 2/2 a UTI vs. ?focal colitis, r/o other sources. E. coli UTI, resolved sepsis -resolved fever, tachycardia, chills -Source is suspected to the urinary given ++UA but also concern for intraabdominal pathology given pain, transaminitis and focal rectal wall thickening -BCx neg -Daily CBC -Previously on PO levofloxacin but spiked fevers while on appropriate therapy for UTI. Broadened abx to Vancomycin and cefepime and later d/valentín. -C/w ceftriaxone until sensitivities come back for wound cultures then will try to cover for all with abx regimen PO Diarrhea, r/o colitis, resolved sepsis -Decreasing amount of diarrhea -GI panel neg for c. diff -BCx neg -Daily CBC -Renal diet -Previously on PO levofloxacin but spiked fevers. Broadened abx to Vancomycin and cefepime and later d/c. -C/w ceftriaxone until sensitivities come back for wound cultures then will try to cover for all with abx regimen PO Stage II decubitus ulcers coccyx, neck-multiple -Not likely to be source per surgery, Dr. Box. No need for debridement currently -Wound cultures pending, MRSA neg -Previously on PO levofloxacin but spiked fevers . Broadened abx to Vancomycin and cefepime. D/w pharmacy on how to deescalate -C/w ceftriaxone until sensitivities come back for wound cultures then will try to cover for all with abx regimen PO Physical deconditioning -PT: 3-5 More Sessions ? neoplastic wall thickening of the superior rectum -cannot r/o on CT above -Spoke with surgery -Will need further w/u later, refer to surgery note ESRD on HD (MWF) 2/2 Microscopic polyangitis -Nephrology following Anemia of chronic disease -H/H stable -receives Aranesp per nephrology, stable Secondary hyperparathyroidism. -calcitriol -Nephrology on board Acute thrombocytopenia, r/o HIT but possibly 2/2 to acute infection -PLTs lower, not chronic -No s/s of bleeding -Monitor with daily CBC -D/cd heparin flushes -F/u HIT ab -If worsens, consider heme consult Microscopic polyangiitis with lung involvement. -stable for now, will continue home meds per med rec when completed -On steroids Severe protein calorie malnutrition -BMI of 17.4, low albumin , bitemporal wasting and diffuse muscular wasting. Hypertension -c/w home amlodipine, toprol and losartan with hold parameters -If BP starts to trend down with sepsis, d/c all these meds and start stress dose steroids + possibly some fluid. Mild non rheumatic valvular heart disease with Moderate pulmonary hypertension. -Known Mild and Mild AR and Mild MR. -EF low normal 50% to 55% per prior TTE Vitamin D deficiency -c/w home calcitriol Paroxysmal atrial fibrillation not on anticoagulation -STable. - currently in sinus DVT prophylaxis: TEDs and SCDs DISPOSITION: Acute inpatient. Nephrology, surgery consulted. PT/OT likely needed at d/c VS, I&O, 24H, Fishbone Vital Signs/I&O Vital Signs Date Time Temp Pulse Resp B/P (MAP) Pulse Ox O2 Delivery O2 Flow Rate FiO2 08/12/21 14:55 97.2 90 18 135/77 (96) 94 Room Air I&O- Last 24 Hours up to 6 AM 08/12/21 06:00 Intake Total 1710 ml Output Total 0 ml Balance 1710 ml Laboratory Data 24H LABS Laboratory Tests 2 08/12/21 05:20: Nucleated Red Blood Cells % (auto) 0.0, Immature Platelet Fraction 5.0, Anion Gap 10, Glomerular Filtration Rate 7.9L, Calcium Level 7.3L, Magnesium Level 2.0, Total Bilirubin 0.6, Aspartate Amino Transf (AST/SGOT) 82H, Alanine Aminotransferase (ALT/SGPT) 87H, Alkaline Phosphatase 177H, Total Protein 4.7L, Albumin 1.5L, Albumin/Globulin Ratio 0.5L CBC/BMP Laboratory Tests 08/12/21 05:20 Microbiology Microbiology 08/10/21 Gastrointestinal Tract Panel (PCR) - Final, Complete 08/10/21 Gram Stain - Final, Resulted 08/10/21 Wound Culture, Resulted Pending 08/10/21 Gram Stain - Final, Complete 08/10/21 Wound Culture - Final, Complete Enterococcus Faecalis Bacillus Sp., Not Anthracis 08/10/21 Gram Stain - Final, Resulted 08/10/21 Wound Culture - Preliminary, Resulted Enterococcus Faecalis Staphylococcus Sp Coag Neg Bacillus Sp., Not Anthracis 08/10/21 - Final, Complete 08/09/21 Blood Culture - Preliminary, Resulted No Growth after 72 hours. All specime... 08/09/21 Urine Culture - Final, Complete Escherichia Coli 08/09/21 Blood Culture - Preliminary, Resulted No Growth after 72 hours. All specime... Sherry Ortiz MD Aug 12, 2021 20:48
[2021-08-12 21:38] VITALS: BP 104/63
--- NOTE | 2021-08-12 22:30 | IPN ---
NEPHROLOGY PROGRESS NOTE DATE: 08/12/2021 SUBJECTIVE: Bettye is seen and examined this morning at the bedside. She complains of tightness and cramping in her feet. She had a low grade temperature of 100.3 this morning. She denies shortness of breath at rest. No chest pain, no abdominal pain, but she reports that her appetite is poor today. OBJECTIVE: PHYSICAL EXAMINATION: VITAL SIGNS: Temperature 97.2, T-max 100.3, pulse 90, respiratory rate 18, blood pressure 135/77, saturating 94% on room air. INTAKE AND OUTPUT: Intake yesterday was 1,660. Weight in the bed scale today is 46.5 kg. GENERAL APPEARANCE: The patient was seen lying flat in bed, elderly female frail, awake, alert, and in no apparent distress. HEENT: The extraocular muscles are intact. Tongue is moist. NECK: Supple. Jugular veins are not elevated. HEART: Sounds are regular, S1, S2. There is no leg edema. LUNGS: Clear to auscultation bilaterally. No crackles, rales or rhonchi. She is comfortable on room air. ABDOMEN: Soft and nontender. There are bowel sounds. EXTREMITIES: There is a fistula in the right arm with palpable thrill and bruit and there is no edema in the lower extremities. There are sequential compression devices on her calves. NEUROLOGICAL: She is oriented x3, cooperative with the physical exam and moves all extremities on command. LABORATORY STUDIES: Today white count 7.7, hemoglobin 9.8, platelet count 60. Sodium 138, potassium 4.0, bicarbonate 22, BUN 58, magnesium 2.0, albumin 1.5. GIPA was negative. INPATIENT MEDICATIONS: The patient continues on IV Ceftriaxone, Aranesp with dialysis, Tylenol p.r.n., Lasix 20 mg daily, Metoprolol 25 mg daily, Protonix 40 mg daily, Prednisone 10 mg p.o. daily. PROBLEMS: 1. End-stage renal disease on hemodialysis on a Monday, Monday, Monday schedule - The patient missed her outpatient dialysis on August 09. She was subsequently dialyzed inpatient August 10. I had planned to dialyze her inpatient today, however the dialysis schedule did not allow. She will be dialyzed August 13 and hence she will be back on her usual Monday, Monday, Monday schedule. Her electrolytes and volume status are acceptable. Her fistula is in good use, but I note that she has become progressively thrombocytopenic, and we will hold Heparin with her next hemodialysis treatment. 2. Chronic hypertension - because of her recent bout of sepsis I did decrease her antihypertensive regimen. We held Amlodipine and we cut down the dose of Toprol XL from 100 mg daily down to 25 mg daily, and blood pressures are satisfactorily controlled with systolic mostly 100 to 130. I would continue her on this decreased antihypertensive regimen at present. 3. Anemia in the setting of chronic renal failure, iron deficiency and significant inflammatory state the patient's ferratin was extremely elevated at more than 10,000, hence I am not giving her IV iron at this time. She continues on Aranesp with dialysis. Latest hemoglobin is 9.8 and almost at goal. 4. Protein calorie malnutrition albumin is only 1.5, and Nepro is ordered with meals. 5. Chronic steroid dependence the patient takes Prednisone 10 mg daily for a history of microscopic cholangitis, and we are continuing the same and there is no need for stress dose steroids at present. 6. Recent bout of sepsis T-max in the past 24 hours is 100.3. Leukocytosis has resolved. Blood cultures were negative. Wound cultures showed polymicrobial findings and urine culture grew E-coli. The patient is on IV Ceftriaxone managed by the Primary Team, and she is clinically improving. 7. Thrombocytopenia - hold heparin w/ next dialysis treatment. MTDD
[2021-08-13 06:00] VITALS: BP 150/79
[2021-08-13 07:39] LABS: HEMATOCRIT 29.5 % (36.0-47.0); HEMOGLOBIN 9.6 g/dl (12.0-15.5); MEAN CORPUSCULAR HEMOGLOBIN 28.2 pg (27.0-33.0); MEAN CORPUSCULAR HGB CONC 32.5 g/dl (32.0-36.5); MEAN CORPUSCULAR VOLUME 86.5 fl (80.0-96.0); RED BLOOD COUNT 3.41 10^6/uL (4.00-5.40); WHITE BLOOD COUNT 9.2 10^3/uL (4.0-10.0)
[2021-08-13 07:45] LABS: PLATELET COUNT, AUTOMATED 66 10^3/uL (150-450)
[2021-08-13] MEDS ORDERED: SODIUM CHLORIDE 0.9% 1000ML IV PRN (07:45)
[2021-08-13] MEDS ORDERED: LIDOCAINE 1% SDV 5ML VIAL SC PRN (07:45)
[2021-08-13 08:05] LABS: ALBUMIN 1.6 GM/DL (3.2-5.2); BILIRUBIN,TOTAL 0.7 MG/DL (0.2-1.0); CALCIUM LEVEL 7.1 MG/DL (8.8-10.2); CREATININE FOR GFR 6.58 MG/DL (0.55-1.30); GLOMERULAR FILTRATION RATE 6.5 (>39); MAGNESIUM LEVEL 2.1 MG/DL (1.8-2.4)
[2021-08-13] MEDS ORDERED: cefTRIAXone SOD 1 GM in D5W MINI-BAG PLUS 50 ML IV SCH (10:00)
[2021-08-13] MEDS: LINEZOLID 600MG TABLET (ZYVOX) PO SCH ×2 (10:21→21:24)
[2021-08-13] MEDS: predniSONE 10 MG TAB PO SCH (10:21)
[2021-08-13] MEDS: FUROSEMIDE 20 MG TAB PO SCH (10:21)
[2021-08-13] MEDS: PANTOPRAZOLE 40MG TAB (PROTONIX) PO SCH (10:22)
[2021-08-13] MEDS: METOPROLOL SUCC *XL* 25MG TAB (TopROL *XL*) PO SCH (10:27)
[2021-08-13] MEDS: LACTOBACILLUS ACIDOPHILUS CAP (BACID) PO SCH ×2 (10:27→18:00)
[2021-08-13] MEDS ORDERED: LORazepam 2 MG/ML VIAL IV ONE (12:15)
[2021-08-13] MEDS ORDERED: LORazepam 2 MG/ML VIAL As Ordered ONE (12:33)
[2021-08-13 16:58] VITALS: BP 142/81
--- NOTE | 2021-08-13 18:57 | IPNPDOC ---
Date Seen The patient was seen on 08/13/21. Progress Note SUBJECTIVE: Paranoia and aggressive today when taken to HD early in the day. Per son, she can sometimes get like this. It is believed to be prompted by the transition to a different floor, new faces and likely some sleep deprivation. Given 0.5 mg ativan and this calmed her to go to dialysis. Started ramelteon for sleep. When examined patient she was AAOx 3 but appeared exhausted. The patient denies chest pain, shortness of breath. OBJECTIVE: PHYSICAL EXAMINATION: VITAL SIGNS: see below GENERAL APPEARANCE: Cachectic, chronically ill appearing and tired woman in NAD, AOx3 HEENT: NCAT, EOMI, MMM, wears dentures, in place. Anicteric sclerae. Bitemporal wasting Neck: supple, no tracheal deviation, no JVD CARDIOVASCULAR: sinus tachycardia, systolic murmur LUNGS: No wheezing or crackles. Moving air well. Breathing comfortably on room air ABDOMEN: Normoactive bowel sounds, soft, has some discomfort but otherwise am able to perform deep palpation throughout without guarding or grimacing. EXTREMITIES: L>R lower extremities, reportedly per baseline. Otherwise WWP without significant edema. has RUE fistula with a palpable thrill INTEG: Multiple Stage II decub ulcers, coccyx and buttocks. Also one behind neck. NEUROLOGICAL: AAox3, speech is clear, moving all extremities with full strength against resistance PSYCHIATRIC: AOx3 LABORATORY DATA: Please see below MICRO: BCx NG x 24 hours Decubitus ulcer cx: sent C. diff neg GI panel: neg UCx E coli IMAGING: CT abd/pelvis: Small bilateral pleural effusions with adjacent patchy atelectasis or infiltrate. No free air or bowel obstruction. Possible focal inflammatory or neoplastic wall thickening of the superior rectum. Mild free fluid in the pelvis. No hydronephrosis bilaterally. MICROBIOLOGY: Please see below. Assessment and Plan 80 y/o elderly W w/ ESRD on M,W,F HD, anemia of chronic disease, uncontrolled h ypertension, microscopic polyangiitis with lung involvement, CAD with moderate pulmonary hypertension, vit D deficient, paroxysmal afib, now being admitted to medicine for sepsis likely 2/2 a UTI vs. ?focal colitis, r/o other sources. Delerium and paranoia likely 2/2 to hospital stay, sleep deprivation -Per son, this happens intermittently -Improved after being brought back to her room -Received 0.5 mg ativan and she later brought back to HD E. coli UTI, resolved sepsis -resolved fever, tachycardia, chills -BCx neg -Daily CBC -Completed treatment with ceftriaxone today Diarrhea, r/o colitis, resolved -Decreasing amount of diarrhea -GI panel neg for c. diff -BCx neg -Daily CBC -Renal diet -Previously on PO levofloxacin but spiked fevers. Broadened abx to Vancomycin and cefepime and later d/c. -Completed treatment with ceftriaxone today Stage II decubitus ulcers coccyx, neck-multiple -See wound cultures, polymicrobial -Not likely to be source per surgery, Dr. Box. No need for debridement currently but may require it later -MRSA neg -Previously on PO levofloxacin but spiked fevers . Broadened abx to Vancomycin and cefepime -She received last dose of ceftriaxone and, after discussion with Dr. Veliz, recommended Linezolid x 7 days to cover all wounds + UTI Physical deconditioning -PT: 3-5 More Sessions ? neoplastic wall thickening of the superior rectum -cannot r/o on CT above -Spoke with surgery -Will need further w/u later, refer to surgery note ESRD on HD (MWF) 2/2 Microscopic polyangitis -Nephrology following Anemia of chronic disease -H/H stable -receives Aranesp per nephrology, stable Secondary hyperparathyroidism. -calcitriol -Nephrology on board Acute thrombocytopenia, r/o HIT but possibly 2/2 to acute infection -PLTs low, not chronic -No s/s of bleeding -Monitor with daily CBC -D/cd heparin flushes -F/u HIT ab -If worsens, consider heme consult Microscopic polyangiitis with lung involvement. -stable for now, will continue home meds per med rec when completed -On steroids Severe protein calorie malnutrition -BMI of 17.4, low albumin , bitemporal wasting and diffuse muscular wasting. Hypertension -c/w home amlodipine, toprol and losartan with hold parameters -If BP starts to trend down with sepsis, d/c all these meds and start stress dose steroids + possibly some fluid. Mild non rheumatic valvular heart disease with Moderate pulmonary hypertension. -Known Mild and Mild AR and Mild MR. -EF low normal 50% to 55% per prior TTE Vitamin D deficiency -c/w home calcitriol Paroxysmal atrial fibrillation not on anticoagulation -STable. - currently in sinus DVT prophylaxis: TEDs and SCDs. Not on due to worsening thrombocytopenia DISPOSITION: Acute inpatient. Nephrology, surgery consulted. PT/OT likely needed at d/c VS, I&O, 24H, Fishbone Vital Signs/I&O Vital Signs Date Time Temp Pulse Resp B/P (MAP) Pulse Ox O2 Delivery O2 Flow Rate FiO2 08/13/21 16:58 97.7 96 18 142/81 (101) 94 Room Air I&O- Last 24 Hours up to 6 AM 08/13/21 06:00 Intake Total 650 ml Output Total 0 ml Balance 650 ml Laboratory Data 24H LABS Laboratory Tests 2 08/13/21 07:30: Nucleated Red Blood Cells % (auto) 0.0, Immature Platelet Fraction 6.3, Anion Gap 12, Glomerular Filtration Rate 6.5L, Calcium Level 7.1L, Magnesium Level 2.1, Total Bilirubin 0.7, Aspartate Amino Transf (AST/SGOT) 56H, Alanine Aminotransferase (ALT/SGPT) 79H, Alkaline Phosphatase 191H, Total Protein 5.0L, Albumin 1.6L, Albumin/Globulin Ratio 0.5L CBC/BMP Laboratory Tests 08/13/21 07:30 Microbiology Microbiology 08/10/21 Gastrointestinal Tract Panel (PCR) - Final, Complete 08/10/21 Gram Stain - Final, Complete 08/10/21 Wound Culture - Final, Complete Staphylococcus Sp Coag Neg Corynebacterium Species 08/10/21 Gram Stain - Final, Complete 08/10/21 Wound Culture - Final, Complete Enterococcus Faecalis Bacillus Sp., Not Anthracis 08/10/21 Gram Stain - Final, Complete 08/10/21 Wound Culture - Final, Complete Enterococcus Faecalis Staphylococcus Sp Coag Neg Bacillus Sp., Not Anthracis 08/10/21 - Final, Complete 08/09/21 Blood Culture - Preliminary, Resulted No Growth after 72 hours. All specime... 08/09/21 Urine Culture - Final, Complete Escherichia Coli 08/09/21 Blood Culture - Preliminary, Resulted No Growth after 72 hours. All specime... Sherry Ortiz MD Aug 13, 2021 18:57
[2021-08-13] MEDS: ACETAMINOPHEN TAB 650MG DOSE (2X325MG) PO PRN (21:24)
[2021-08-13] MEDS: RAMELTEON 8 MG TAB (ROZEREM) PO SCH (21:24)
[2021-08-13 21:29] VITALS: BP 141/74
--- NOTE | 2021-08-13 21:50 | IPN ---
PROGRESS NOTE DATE: 08/13/2021 SUBJECTIVE: Bettye was seen and examined this afternoon receiving a hemodialysis treatment. We attempted to dialyze her in the morning, but the patient was confused and agitated and dialysis nurse could not successfully cannulate her fistula. She received a dose of Ativan in the afternoon, after which she was brought to the dialysis unit and was successfully put on treatment. Her son was present at her side in the dialysis unit. The patient is intermittently confused, but she remains afebrile and hemodynamically stable. T-max the past 24 hours was one reading of 100.3. OBJECTIVE: VITAL SIGNS: T-current 98.1, pulse 84, respiratory rate 16, blood pressure 141/80, saturating 94% on room air. INTAKE/OUTPUT: Intake yesterday was 650. Dialysis today removed 0.7 liter. Weight in the bed scale today was 45 kg. GENERAL: Patient is seen lying in the hemodialysis unit receiving her treatment. An elderly female, frail, chronically ill-appearing, in no distress. Not restless. Not agitated. Her son is present at the bedside. HEENT: Extraocular muscles are intact. Tongue is moist. There is muscle wasting. Jugular veins are not elevated. HEART: Heart sounds are regular, S1, S2. There is no peripheral edema. LUNGS: Clear to auscultation. No crackles or rales. ABDOMEN: Soft and nontender. EXTREMITIES: There is a fistula in the right arm, which is in use during her dialysis treatment. SKIN: Her decubitus ulcers were not examined. NEUROLOGIC: She is oriented to person and to place, recognizes me and follows simple commands appropriately, but thinks that the year is 2009 and thinks that Macie is president. LABORATORY DATA: White count 9.2, hemoglobin 9.6, platelets 66,000. Sodium 141, potassium 4.0, bicarbonate 22, BUN 75, glucose 100. Magnesium 2.1. Albumin 1.6. INPATIENT MEDICATIONS: Reviewed by myself. She got a dose of Ativan this afternoon. Her I.V. Ceftriaxone was stopped. She is now on oral Zyvox. The remainder of her medications are unchanged as compared to yesterday. PROBLEMS: 1. End-stage renal disease on hemodialysis on a Monday, Monday, Monday schedule: Patient was dialyzed today, she usually has less than 1 kg of fluid removed with her dialysis treatments. Her electrolytes and volume status are acceptable. I do not think that her intermittent confusion is secondary to any uremia. Her fistula is in good use. 2. Hypertension: Antihypertensive agents have been scaled back on this admission. She is taking less medicine than what she was previously on at home, currently only on Toprol XL 25 mg daily plus Lasix 20 mg daily and blood pressures are nicely controlled without any documented hypotension. 3. Anemia of chronic renal failure and chronic inflammatory state: Hemoglobin 9.6 on the latest labs. She continues on Aranesp with dialysis. I did not give her I.V. iron because of severe elevation in serum ferritin level. 4. Thrombocytopenia: Etiology is unclear, it appears to be a new finding. She is receiving Heparin-free dialysis today. 5. Microscopic polyangiitis: She continues on chronic oral prednisone. 6. Severe protein calorie malnutrition: Albumin level of only 1.6, Nepro was ordered. She needs to be on a high protein diet. She also has decubitus ulcers.
[2021-08-14 06:00] VITALS: BP 142/82
[2021-08-14 07:14] LABS: HEMATOCRIT 28.8 % (36.0-47.0); HEMOGLOBIN 9.4 g/dl (12.0-15.5); MEAN CORPUSCULAR HEMOGLOBIN 28.1 pg (27.0-33.0); MEAN CORPUSCULAR HGB CONC 32.6 g/dl (32.0-36.5); RED BLOOD COUNT 3.35 10^6/uL (4.00-5.40); WHITE BLOOD COUNT 8.7 10^3/uL (4.0-10.0)
[2021-08-14 07:26] LABS: PLATELET COUNT, AUTOMATED 53 10^3/uL (150-450)
[2021-08-14 07:33] LABS: ALBUMIN 1.5 GM/DL (3.2-5.2); BILIRUBIN,TOTAL 0.6 MG/DL (0.2-1.0); CALCIUM LEVEL 7.5 MG/DL (8.8-10.2); CREATININE FOR GFR 4.38 MG/DL (0.55-1.30); GLOMERULAR FILTRATION RATE 10.4 (>39); POTASSIUM SERUM 4.2 MEQ/L (3.5-5.1); TOTAL PROTEIN 4.7 GM/DL (6.4-8.2)
[2021-08-14 09:00] VITALS: BP 84/58
[2021-08-14] MEDS: FUROSEMIDE 20 MG TAB PO SCH (09:00)
[2021-08-14] MEDS: METOPROLOL SUCC *XL* 25MG TAB (TopROL *XL*) PO SCH (09:00)
[2021-08-14] MEDS: PANTOPRAZOLE 40MG TAB (PROTONIX) PO SCH (09:13)
[2021-08-14] MEDS: predniSONE 10 MG TAB PO SCH (09:13)
[2021-08-14] MEDS: LINEZOLID 600MG TABLET (ZYVOX) PO SCH ×2 (09:13→20:58)
[2021-08-14] MEDS: LACTOBACILLUS ACIDOPHILUS CAP (BACID) PO SCH ×2 (09:13→17:54)
[2021-08-14 12:00] VITALS: BP 96/60
--- NOTE | 2021-08-14 15:17 | IPN ---
PROGRESS NOTE DATE: 08/14/2021 Ms. Ocampo is seen this morning on her bedside. She is currently sitting in the chair. She was dialyzed yesterday, which she tolerated well. She denies any nausea, vomiting, dyspnea, or chest pain. She did have fever up to 100.4 degrees Fahrenheit last night. Patient remains somewhat confused at times; however, she was able to answer simple questions. Her son has been visiting from [facility], in order to make decisions about her health; however, patient felt that she has not seen or heard from her son for awhile. PHYSICAL EXAMINATION: Temperature 98.4 degrees Fahrenheit, heart rate 82 per minute, respiratory rate 20 per minute, blood pressure early was 142/82 mmHg, and oxygen saturation 94%. Her head is atraumatic. She has a small scab on the upper lip. Her neck veins are somewhat prominent. No oral thrush or ulcer noted. Heart sounds are regular and lungs clear to auscultation. Abdomen soft and nontender, and bowel sounds are normal. Extremities without any cyanosis or clubbing. Right arteriovenous (AV) fistula is patent. Today's labs show WBC count 8.4, hemoglobin 9.4, hematocrit 28.8, platelets 53,000. Sodium 139, potassium 4.2, CO2 of 24, BUN 41, and creatinine 4.38. Glucose 79 and calcium 7.5. Total protein 4.7 and albumin 1.5. PROBLEMS: 1. End-stage renal disease. Patient was dialyzed yesterday, and we will plan next dialysis for Monday. At present, there is no emergent need for dialysis today. 2. Anemia. Her anemia is stable at present, and she will continue with weekly dose of Aranesp. No need for a transfusion at present. 3. Protein-calorie malnutrition. Most likely this is a chronic issue and did get worse lately. Patient is being encouraged to increase her protein intake. 4. Congestive heart failure. Her volume status seems reasonable, and we will try to remove about 2 liters of fluid with next dialysis on Monday. 5. Fever. Patient has decubitus ulcers, which is probably the cause of her fever. She remains on antibiotics. At present, she is on Zyvox 600 mg twice a day. Ceftriaxone has been stopped. 6. Altered mentation. Patient does have a history of dementia and probably infection also contributing to her altered mentation. She seems to be better today. We will continue to monitor her closely.
--- NOTE | 2021-08-14 19:24 | IPNPDOC ---
Text Note Date of Service The patient was seen on 08/14/21. NOTE Attempt made to encourage pt back into bed since she has been sitting up and should relieve pressure given her pressure injuries. She declined as she reports no discomfort. She is a/ox3, she is somewhat paranoid and describes being upset having to be in hospital and "be told what to do". Discussed careplan and importance of relieving pressure despite not feeling pain on the wounds. Pt verbalized understanding regarding frequent monitoring while in hospital. She agrees to try to lay down in order to rest tonight "a little later". Of note, she did refuse dinner- she has pizza in front of her in plastic bag. VS,Fishbone, I+O VS, Fishbone, I+O Laboratory Tests 08/14/21 06:31 Vital Signs Date Time Temp Pulse Resp B/P (MAP) Pulse Ox O2 Delivery O2 Flow Rate FiO2 08/14/21 12:00 96/60 (72) 08/14/21 09:00 106 08/14/21 06:00 98.4 20 94 Room Air I&O- Last 24 Hours up to 6 AM 08/14/21 06:00 Intake Total 50 ml Output Total 700 ml Balance -650 ml ENZO CUETO NP Aug 14, 2021 19:24
--- NOTE | 2021-08-14 20:40 | IPNPDOC ---
Date Seen The patient was seen on 08/14/21. Progress Note SUBJECTIVE: The patient stopped talking to me today during evaluation after I suggested continued physical therapy per their recommendation. She also stopped talking to nursing after that and would not cooperate. She seems to display certain behaviors such as avoidance, paranoia, aggression at times. She told staff later that she did not want to be told what to do here and wanted to go home. Earlier she denied chest pain, shortness of breath. OBJECTIVE: PHYSICAL EXAMINATION: VITAL SIGNS: see below GENERAL APPEARANCE: Cachectic, cNAD, AOx3 HEENT: NCAT, EOMI, MMM, wears dentures, in place. Anicteric sclerae. Bitemporal wasting Neck: supple, no tracheal deviation, no JVD CARDIOVASCULAR: sinus tachycardia, systolic murmur LUNGS: No wheezing or crackles. Moving air well. Breathing comfortably on room air ABDOMEN: Normoactive bowel sounds, soft, has some discomfort but otherwise am ab le to perform deep palpation throughout without guarding or grimacing. EXTREMITIES: L>R lower extremities, reportedly per baseline. Otherwise WWP without significant edema. has RUE fistula with a palpable thrill INTEG: Multiple Stage II decub ulcers, coccyx and buttocks. Also one behind neck. NEUROLOGICAL: AAox3, speech is clear, moving all extremities with full strength against resistance PSYCHIATRIC: AOx3 LABORATORY DATA: Please see below MICRO: BCx NG x 24 hours Decubitus ulcer cx: sent C. diff neg GI panel: neg UCx E coli IMAGING: CT abd/pelvis: Small bilateral pleural effusions with adjacent patchy atelectasis or infiltrate. No free air or bowel obstruction. Possible focal inflammatory or neoplastic wall thickening of the superior rectum. Mild free fluid in the pelvis. No hydronephrosis bilaterally. MICROBIOLOGY: Please see below. Assessment and Plan 80 y/o elderly W w/ ESRD on M,W,F HD, anemia of chronic disease, uncontrolled hypertension, microscopic polyangiitis with lung involvement, CAD with moderate pulmonary hypertension, vit D deficient, paroxysmal afib, now being admitted to medicine for sepsis likely 2/2 a UTI vs. ?focal colitis, r/o other sources. Physical deconditioning secondary to acute and chronic illness -PT: 3-5 More Sessions -Please refer to their notes E. coli UTI, resolved sepsis -resolved fever, tachycardia, chills -BCx neg -Daily CBC -Completed treatment with ceftriaxone 08/13/2021 Diarrhea, r/o colitis, resolved -Decreasing amount of diarrhea -GI panel neg for c. diff -BCx neg -Daily CBC -Renal diet -Previously on PO levofloxacin but spiked fevers. Broadened abx to Vancomycin and cefepime and later d/c. -Completed treatment with ceftriaxone 08/13/2021 Stage II decubitus ulcers coccyx, neck-multiple -See wound cultures, polymicrobial -Not likely to be source per surgery, Dr. Box. No need for debridement c urrently but may require it later -MRSA neg -Previously on PO levofloxacin but spiked fevers . Broadened abx to Vancomycin and cefepime -She received last dose of ceftriaxone and, after discussion with Dr. Veliz, recommended Linezolid x 7 days to cover all wounds + UTI Delerium and paranoia likely 2/2 to hospital stay, sleep deprivation -Underlying behaviors including ignoring staff, refusing food, aggression -Per son, this happens intermittently -Waxes and wanes ? neoplastic wall thickening of the superior rectum -cannot r/o on CT above -Spoke with surgery -Will need further w/u later, refer to surgery note ESRD on HD (MWF) 2/2 Microscopic polyangitis -Nephrology following Anemia of chronic disease -H/H stable -receives Aranesp per nephrology, stable Secondary hyperparathyroidism. -calcitriol -Nephrology on board Acute thrombocytopenia, r/o HIT but possibly 2/2 to acute infection -PLTs low, not chronic -No s/s of bleeding -Monitor with daily CBC -D/cd heparin flushes -HIT ab negative -If worsens, consider heme consult Microscopic polyangiitis with lung involvement. -stable for now, will continue home meds per med rec when completed -On steroids Severe protein calorie malnutrition -BMI of 17.4, low albumin , bitemporal wasting and diffuse muscular wasting. Hypertension -c/w home amlodipine, toprol and losartan with hold parameters -If BP starts to trend down with sepsis, d/c all these meds and start stress dose steroids + possibly some fluid. Mild non rheumatic valvular heart disease with Moderate pulmonary hypertension. -Known Mild and Mild AR and Mild MR. -EF low normal 50% to 55% per prior TTE Vitamin D deficiency -c/w home calcitriol Paroxysmal atrial fibrillation not on anticoagulation -STable. - currently in sinus DVT prophylaxis: TEDs and SCDs. Not on due to worsening thrombocytopenia DISPOSITION: Acute inpatient. Nephrology, surgery consulted. PT/OT likely needed at d/c VS, I&O, 24H, Fishbone Vital Signs/I&O Vital Signs Date Time Temp Pulse Resp B/P (MAP) Pulse Ox O2 Delivery O2 Flow Rate FiO2 08/14/21 12:00 96/60 (72) 08/14/21 09:00 106 08/14/21 06:00 98.4 20 94 Room Air I&O- Last 24 Hours up to 6 AM 08/14/21 06:00 Intake Total 50 ml Output Total 700 ml Balance -650 ml Laboratory Data 24H LABS Laboratory Tests 2 08/14/21 06:31: Nucleated Red Blood Cells % (auto) 0.0, Anion Gap 10, Glomerular Filtration Rate 10.4L, Calcium Level 7.5L, Magnesium Level 2.0, Total Bilirubin 0.6, Aspartate Amino Transf (AST/SGOT) 46H, Alanine Aminotransferase (ALT/SGPT) 63, Alkaline Phosphatase 166H, Total Protein 4.7L, Albumin 1.5L, Albumin/Globulin Ratio 0.5L CBC/BMP Laboratory Tests 08/14/21 06:31 Microbiology Microbiology 08/10/21 Gastrointestinal Tract Panel (PCR) - Final, Complete 08/10/21 Gram Stain - Final, Complete 08/10/21 Wound Culture - Final, Complete Staphylococcus Sp Coag Neg Corynebacterium Species 08/10/21 Gram Stain - Final, Complete 08/10/21 Wound Culture - Final, Complete Enterococcus Faecalis Bacillus Sp., Not Anthracis 08/10/21 Gram Stain - Final, Complete 08/10/21 Wound Culture - Final, Complete Enterococcus Faecalis Staphylococcus Sp Coag Neg Bacillus Sp., Not Anthracis 08/10/21 - Final, Complete 08/09/21 Blood Culture - Final, Complete NO GROWTH AFTER 5 DAYS 08/09/21 Urine Culture - Final, Complete Escherichia Coli 08/09/21 Blood Culture - Final, Complete NO GROWTH AFTER 5 DAYS Sherry Ortiz MD Aug 14, 2021 20:40
[2021-08-14] MEDS: RAMELTEON 8 MG TAB (ROZEREM) PO SCH (20:58)
[2021-08-14 22:00] VITALS: BP 112/59
[2021-08-15 06:00] VITALS: BP 131/69
[2021-08-15 07:53] LABS: HEMOGLOBIN 9.8 g/dl (12.0-15.5); MEAN CORPUSCULAR HGB CONC 31.6 g/dl (32.0-36.5); MEAN CORPUSCULAR VOLUME 88.6 fl (80.0-96.0); PLATELET COUNT, AUTOMATED 68 10^3/uL (150-450); WHITE BLOOD COUNT 7.3 10^3/uL (4.0-10.0)
[2021-08-15] MEDS: LINEZOLID 600MG TABLET (ZYVOX) PO SCH ×2 (08:16→22:18)
[2021-08-15] MEDS: LACTOBACILLUS ACIDOPHILUS CAP (BACID) PO SCH ×2 (08:16→18:06)
[2021-08-15] MEDS: predniSONE 10 MG TAB PO SCH (08:16)
[2021-08-15] MEDS: FUROSEMIDE 20 MG TAB PO SCH (08:16)
[2021-08-15] MEDS: PANTOPRAZOLE 40MG TAB (PROTONIX) PO SCH (08:16)
[2021-08-15 08:22] LABS: ALBUMIN 1.8 GM/DL (3.2-5.2); BILIRUBIN,TOTAL 0.6 MG/DL (0.2-1.0); CALCIUM LEVEL 7.6 MG/DL (8.8-10.2); CREATININE FOR GFR 5.62 MG/DL (0.55-1.30); GLOMERULAR FILTRATION RATE 7.8 (>39); POTASSIUM SERUM 4.6 MEQ/L (3.5-5.1); TOTAL PROTEIN 5.1 GM/DL (6.4-8.2)
[2021-08-15 14:00] VITALS: BP 125/78
--- NOTE | 2021-08-15 14:03 | IPNPDOC ---
Date Seen The patient was seen on 08/15/21. Progress Note SUBJECTIVE: The patient again did not talk to me while I was in room, nursing states she was talking to them all morning. Suspect she is upset that I told her PT would like to continue to work with her before discharge. She allowed me to do physical exam. No events overnight. OBJECTIVE: PHYSICAL EXAMINATION: VITAL SIGNS: see below GENERAL APPEARANCE: Cachectic, cNAD, AOx3 HEENT: NCAT, EOMI, MMM, wears dentures, in place. Anicteric sclerae. Bitemporal wasting Neck: supple, no tracheal deviation, no JVD CARDIOVASCULAR: sinus tachycardia, systolic murmur LUNGS: No wheezing or crackles. Moving air well. Breathing comfortably on room air ABDOMEN: Normoactive bowel sounds, soft, has some discomfort but otherwise am able to perform deep palpation throughout without guarding or grimacing. EXTREMITIES: L>R lower extremities, reportedly per baseline. Otherwise WWP without significant edema. has RUE fistula with a palpable thrill INTEG: Multiple Stage II decub ulcers, coccyx and buttocks. Also one behind neck. NEUROLOGICAL: would not answer orientation questions today, no focal deficits PSYCHIATRIC: depressed mood, nonconversant today LABORATORY DATA: Please see below MICRO: BCx NG x 24 hours Decubitus ulcer cx: sent C. diff neg GI panel: neg UCx E coli IMAGING: CT abd/pelvis: Small bilateral pleural effusions with adjacent patchy atelectasis or infiltrate. No free air or bowel obstruction. Possible focal inflammatory or neoplastic wall thickening of the superior rectum. Mild free fluid in the pelvis. No hydronephrosis bilaterally. MICROBIOLOGY: Please see below. Assessment and Plan 80 y/o elderly W w/ ESRD on M,W,F HD, anemia of chronic disease, uncontrolled hypertension, microscopic polyangiitis with lung involvement, CAD with moderate pulmonary hypertension, vit D deficient, paroxysmal afib, now being admitted to medicine for sepsis likely 2/2 a UTI vs. ?focal colitis, r/o other sources. Physical deconditioning secondary to acute and chronic illness -PT: 3-5 More Sessions on last note -Please refer to their notes -Plan is possible d/c home vs. rehab E. coli UTI, resolved sepsis -resolved fever, tachycardia, chills -BCx neg -Daily CBC -Completed treatment with ceftriaxone 08/13/2021 Diarrhea, r/o colitis, resolved -Decreasing amount of diarrhea -GI panel neg for c. diff -BCx neg -Daily CBC -Renal diet -Previously on PO levofloxacin but spiked fevers. Broadened abx to Vancomycin and cefepime and later d/c. -Completed treatment with ceftriaxone 08/13/2021 Stage II decubitus ulcers coccyx, neck-multiple -See wound cultures, polymicrobial -Not likely to be source per surgery, Dr. Box. No need for debridement currently but may require it later -MRSA neg -Previously on PO levofloxacin but spiked fevers . Broadened abx to Vancomycin and cefepime -She received last dose of ceftriaxone and, after discussion with Dr. Veliz, recommended Linezolid (Day3) x 7 days to cover all wounds + UTI Delerium and paranoia likely 2/2 to hospital stay, sleep deprivation -Underlying behaviors including ignoring staff (myself included), refusing food, aggression -Per son, this happens intermittently -Waxes and wanes ? neoplastic wall thickening of the superior rectum -cannot r/o on CT above -Spoke with surgery -Will need further w/u later, refer to surgery note ESRD on HD (MWF) 2/2 Microscopic polyangitis -Nephrology following Anemia of chronic disease -H/H stable -receives Aranesp per nephrology, stable Secondary hyperparathyroidism. -calcitriol -Nephrology on board Acute thrombocytopenia, r/o HIT but possibly 2/2 to acute infection -PLTs low, not chronic -No s/s of bleeding -Monitor with daily CBC -D/cd heparin flushes -HIT ab negative -If worsens, consider heme consult Microscopic polyangiitis with lung involvement. -stable for now, will continue home meds per med rec when completed -On steroids Severe protein calorie malnutrition -BMI of 17.4, low albumin , bitemporal wasting and diffuse muscular wasting. Hypertension -c/w home amlodipine, toprol and losartan with hold parameters -If BP starts to trend down with sepsis, d/c all these meds and start stress dose steroids + possibly some fluid. Mild non rheumatic valvular heart disease with Moderate pulmonary hypertension. -Known Mild and Mild AR and Mild MR. -EF low normal 50% to 55% per prior TTE Vitamin D deficiency -c/w home calcitriol Paroxysmal atrial fibrillation not on anticoagulation -STable. - currently in sinus DVT prophylaxis: TEDs and SCDs. Not on AC due to worsening thrombocytopenia DISPOSITION: Acute inpatient. Nephrology, surgery consulted. PT/OT to resume on 08/16/21 to decide when ok for safe discharge VS, I&O, 24H, Fishbone Vital Signs/I&O Vital Signs Date Time Temp Pulse Resp B/P (MAP) Pulse Ox O2 Delivery O2 Flow Rate FiO2 08/15/21 06:00 98.8 80 19 131/69 (89) 96 08/14/21 06:00 Room Air I&O- Last 24 Hours up to 6 AM 08/15/21 06:00 Intake Total 0 ml Balance 0 ml Laboratory Data 24H LABS Laboratory Tests 2 08/15/21 07:20: Nucleated Red Blood Cells % (auto) 0.0, Immature Platelet Fraction 8.6, Anion Gap 11, Glomerular Filtration Rate 7.8L, Calcium Level 7.6L, Total Bilirubin 0.6, Aspartate Amino Transf (AST/SGOT) 46H, Alanine Aminotransferase (ALT/SGPT) 64, Alkaline Phosphatase 156H, Total Protein 5.1L, Albumin 1.8L, Albumin/Globulin Ratio 0.5L CBC/BMP Laboratory Tests 08/15/21 07:20 Microbiology Microbiology 08/10/21 Gastrointestinal Tract Panel (PCR) - Final, Complete 08/10/21 Gram Stain - Final, Complete 08/10/21 Wound Culture - Final, Complete Staphylococcus Sp Coag Neg Corynebacterium Species 08/10/21 Gram Stain - Final, Complete 08/10/21 Wound Culture - Final, Complete Enterococcus Faecalis Bacillus Sp., Not Anthracis 08/10/21 Gram Stain - Final, Complete 08/10/21 Wound Culture - Final, Complete Enterococcus Faecalis Staphylococcus Sp Coag Neg Bacillus Sp., Not Anthracis 08/10/21 - Final, Complete 08/09/21 Blood Culture - Final, Complete NO GROWTH AFTER 5 DAYS 08/09/21 Urine Culture - Final, Complete Escherichia Coli 08/09/21 Blood Culture - Final, Complete NO GROWTH AFTER 5 DAYS Sherry Ortiz MD Aug 15, 2021 14:03
[2021-08-15] MEDS: ANALGESIC BALM CRM 3OZ TOP SCH ×2 (15:04→22:18)
--- NOTE | 2021-08-15 15:53 | IPN ---
NEPHROLOGY PROGRESS NOTE DATE: 08/15/2021 SUBJECTIVE: Mrs. Ocampo is seen this morning at her bedside. She is sitting in the chair and is quite sad looking. Nursing staff reports that she has been sad as she has been told that she would not be able to live at home. Apparently she has been doing poorly and has decubitus ulcers. She has no support at home. Her son has arrived from [facility]. He is trying to help her to make a decision about her future care. In the meantime she did receive her last dialysis on Monday and did very well. She is due for her next dialysis tomorrow. OBJECTIVE: PHYSICAL EXAMINATION: VITAL SIGNS: Temperature 98.8 degrees Fahrenheit, heart rate 80 per minute and respiratory rate 18 per minute. Blood pressure 130/69 mm of mercury and oxygen saturation 96% on room air. HEENT: Her head is atraumatic. NECK: Supple and without JVD or thyroid enlargement. HEART: Regular. LUNGS: Slightly diminished breath sounds. ABDOMEN: Soft and nontender and bowel sounds are normal. EXTREMITIES: Without any cyanosis or clubbing. Right upper arm AV fistula is patent. NEUROLOGICAL: She is at her baseline mentation. She has no focal deficits. LABORATORY STUDIES: Today's labs show a WBC count of 7.3, hemoglobin 9.8 and hematocrit 31. Sodium 138 and potassium 4.6, BUN 56 and creatinine 5.62. Total protein is 5.1 and albumin is 1.8. PROBLEMS: 1. End-stage renal disease - The patient is regularly dialyzed on a Monday, Monday and Monday schedule. We will plan the next dialysis tomorrow. At present her electrolytes are normal and volume status is well compensated. She is not eating much and not gaining much weight between treatments. I encouraged her to eat well in order to improve her nutrition. 2. Anemia her anemia is stable and we will continue with once a week Aranesp 100 mcg. 3. Decubitus ulcers - The patient has pressure ulcers on her sacrum area. She has been advised for group home placement due to the inability for her to take care of herself. Apparently she is unhappy about it. Her son is trying to help her make a decision.
[2021-08-15 19:38] VITALS: BP 130/77
[2021-08-15] MEDS: RAMELTEON 8 MG TAB (ROZEREM) PO SCH (22:18)
[2021-08-16 07:38] LABS: HEMATOCRIT 28.4 % (36.0-47.0); HEMOGLOBIN 8.9 g/dl (12.0-15.5); MEAN CORPUSCULAR HEMOGLOBIN 27.9 pg (27.0-33.0); MEAN CORPUSCULAR HGB CONC 31.3 g/dl (32.0-36.5); RED BLOOD COUNT 3.19 10^6/uL (4.00-5.40); WHITE BLOOD COUNT 5.5 10^3/uL (4.0-10.0)
[2021-08-16 07:41] LABS: PLATELET COUNT, AUTOMATED 75 10^3/uL (150-450)
[2021-08-16 07:54] LABS: ALBUMIN 1.6 GM/DL (3.2-5.2); BILIRUBIN,TOTAL 0.6 MG/DL (0.2-1.0); CALCIUM LEVEL 6.8 MG/DL (8.8-10.2); CREATININE FOR GFR 6.85 MG/DL (0.55-1.30); GLOMERULAR FILTRATION RATE 6.2 (>39); POTASSIUM SERUM 4.7 MEQ/L (3.5-5.1); TOTAL PROTEIN 4.9 GM/DL (6.4-8.2)
[2021-08-16] MEDS: LACTOBACILLUS ACIDOPHILUS CAP (BACID) PO SCH ×2 (08:00→17:00)
[2021-08-16] MEDS: ANALGESIC BALM CRM 3OZ TOP SCH ×2 (09:53→20:23)
[2021-08-16] MEDS: PANTOPRAZOLE 40MG TAB (PROTONIX) PO SCH (09:53)
[2021-08-16] MEDS: FUROSEMIDE 20 MG TAB PO SCH (09:53)
[2021-08-16] MEDS: predniSONE 10 MG TAB PO SCH (09:53)
[2021-08-16] MEDS: LINEZOLID 600MG TABLET (ZYVOX) PO SCH ×2 (09:53→20:21)
--- NOTE | 2021-08-16 12:48 | IPN ---
PROGRESS NOTE DATE: 08/15/2021 SUBJECTIVE: Mrs. Ocampo is seen this morning on her bedside. She remains somewhat confused and not fully oriented. She is not agitated at present. She is not eating much in the hospital. She denies any dyspnea or chest pain. She has no fever or chills. OBJECTIVE: VITAL SIGNS: Temperature is 98.7 degrees Fahrenheit, heart rate is 70 per minute and respiratory rate is 18 per minute. Blood pressure is 130/77 mmHg and oxygen saturation 93% on room air. HEAD: Atraumatic. Small scab on her upper lip is noticed. NECK: Supple without JVD or thyroid enlargement. HEART: Heart sounds are regular. LUNGS: Clear to auscultation. ABDOMEN: Soft and nontender. Bowel sounds are normal. EXTREMITIES: Without any cyanosis or clubbing. Right arm AV fistula is patent. NEUROLOGIC: She is slightly confused and not fully oriented. LABORATORY DATA: Today's labs shows a WBC count of 5.5, hemoglobin is 8.9 and hematocrit is 28.4, platelets are 75,000. Sodium is 140, potassium is 4.7, CO2 23, BUN 68 and creatinine is 6.85. Glucose is 76 and calcium was reported as 6.8. Her total protein is 4.9 and albumin is 1.6. PROBLEMS: 1. Endstage renal disease. Patient is regularly dialyzed on Monday, Monday and Monday schedule. I am going to postpone her dialysis until tomorrow morning due to staffing issues. Her electrolytes are stable and volume is well compensated. There is no emergent need for dialysis today. 2. Anemia, her anemia is essentially unchanged. She is continuing to receive Aranesp once a week. CBC should be repeated again at least in a couple of days. 3. Hypertension. Blood pressure seems well-controlled on current medications and no changes are being made today. 4. Sacral decubitus ulcers and sepsis. Patient remains on Zyvox 600 mg b.i.d.
[2021-08-16 14:00] VITALS: BP 135/77
--- NOTE | 2021-08-16 18:51 | IPNPDOC ---
Date Seen The patient was seen on 08/16/21. Progress Note SUBJECTIVE: Conversant with me today, wants to go home. Did not participate with PT today, fall risk. HD to be done tomorrow per nephrology. No events overnight. OBJECTIVE: PHYSICAL EXAMINATION: VITAL SIGNS: see below GENERAL APPEARANCE: Cachectic, cNAD, AOx3 HEENT: NCAT, EOMI, MMM, wears dentures, in place. Anicteric sclerae. Bitemporal wasting Neck: supple, no tracheal deviation, no JVD CARDIOVASCULAR: sinus tachycardia, systolic murmur LUNGS: No wheezing or crackles. Moving air well. Breathing comfortably on room air ABDOMEN: Normoactive bowel sounds, soft, has some discomfort but otherwise am able to perform deep palpation throughout without guarding or grimacing. EXTREMITIES: L>R lower extremities, reportedly per baseline. Otherwise WWP without significant edema. has RUE fistula with a palpable thrill INTEG: Multiple Stage II decub ulcers, coccyx and buttocks. Also one behind neck. NEUROLOGICAL: would not answer orientation questions today, no focal deficits PSYCHIATRIC: depressed mood, nonconversant today LABORATORY DATA: Please see below MICRO: BCx NG x 24 hours Decubitus ulcer cx: sent C. diff neg GI panel: neg UCx E coli IMAGING: CT abd/pelvis: Small bilateral pleural effusions with adjacent patchy atelectasis or infiltrate. No free air or bowel obstruction. Possible focal inflammatory or neoplastic wall thickening of the superior rectum. Mild free fluid in the pelvis. No hydronephrosis bilaterally. MICROBIOLOGY: Please see below. Assessment and Plan 80 y/o elderly W w/ ESRD on M,W,F HD, anemia of chronic disease, uncontrolled hypertension, microscopic polyangiitis with lung involvement, CAD with moderate pulmonary hypertension, vit D deficient, paroxysmal afib, now being admitted to medicine for sepsis likely 2/2 a UTI vs. ?focal colitis, r/o other sources. Physical deconditioning secondary to acute and chronic illness -PT: 3-5 More Sessions on last note but refused PT today to further evaluate -Please refer to their notes -AT this time patient is a fall risk and an unsafe discharge to go back to independent living situation. Recommend continued rehab. D/w social work E. coli UTI, resolved sepsis -resolved fever, tachycardia, chills -BCx neg -Daily CBC -Completed treatment with ceftriaxone 08/13/2021 Diarrhea, r/o colitis, resolved -Decreasing amount of diarrhea -GI panel neg for c. diff -BCx neg -Daily CBC -Renal diet -Previously on PO levofloxacin but spiked fevers. Broadened abx to Vancomycin and cefepime and later d/c. -Completed treatment with ceftriaxone 08/13/2021 Stage II decubitus ulcers coccyx, neck-multiple -See wound cultures, polymicrobial -Not likely to be source per surgery, Dr. Box. No need for debridement currently but may require it later -MRSA neg -Previously on PO levofloxacin but spiked fevers . Broadened abx to Vancomycin and cefepime -She received last dose of ceftriaxone and, after discussion with Dr. Veliz, recommended Linezolid (Day3) x 7 days to cover all wounds + UTI Delerium and paranoia likely 2/2 to hospital stay, sleep deprivation -Underlying behaviors including ignoring staff (myself included), refusing food, aggression -Per son, this happens intermittently -Waxes and wanes ? neoplastic wall thickening of the superior rectum -cannot r/o on CT above -Spoke with surgery -Will need further w/u later, refer to surgery note ESRD on HD (MWF) 2/2 Microscopic polyangitis -HD postponed today, to get tomorrow 08/17/21 -Nephrology following Anemia of chronic disease -H/H stable -receives Aranesp per nephrology, stable Secondary hyperparathyroidism. -calcitriol -Nephrology on board Acute thrombocytopenia, r/o HIT but possibly 2/2 to acute infection -PLTs low, not chronic -No s/s of bleeding -Monitor with daily CBC -D/cd heparin flushes -HIT ab negative -If worsens, consider heme consult Microscopic polyangiitis with lung involvement. -stable for now, will continue home meds per med rec when completed -On steroids Severe protein calorie malnutrition -BMI of 17.4, low albumin , bitemporal wasting and diffuse muscular wasting. Hypertension -c/w home amlodipine, toprol and losartan with hold parameters -If BP starts to trend down with sepsis, d/c all these meds and start stress dose steroids + possibly some fluid. Mild non rheumatic valvular heart disease with Moderate pulmonary hypertension. -Known Mild and Mild AR and Mild MR. -EF low normal 50% to 55% per prior TTE Vitamin D deficiency -c/w home calcitriol Paroxysmal atrial fibrillation not on anticoagulation -STable. - currently in sinus DVT prophylaxis: TEDs and SCDs. Not on AC due to worsening thrombocytopenia DISPOSITION: Acute inpatient. Nephrology, surgery consulted. Refusing PT, unsafe discharge otherwise. Will need rehab vs. placement likely. VS, I&O, 24H, Fishbone Vital Signs/I&O Vital Signs Date Time Temp Pulse Resp B/P (MAP) Pulse Ox O2 Delivery O2 Flow Rate FiO2 08/16/21 14:00 97.0 82 16 135/77 (96) 97 Room Air I&O- Last 24 Hours up to 6 AM 08/16/21 06:00 Intake Total 450 ml Output Total 175 ml Balance 275 ml Laboratory Data 24H LABS Laboratory Tests 2 08/16/21 06:59: Nucleated Red Blood Cells % (auto) 0.0, Anion Gap 10, Glomerular Filtration Rate 6.2L, Calcium Level 6.8L, Total Bilirubin 0.6, Aspartate Amino Transf (AST/SGOT) 30, Alanine Aminotransferase (ALT/SGPT) 52, Alkaline Phosphatase 137H, Total Protein 4.9L, Albumin 1.6L, Albumin/Globulin Ratio 0.5L CBC/BMP Laboratory Tests 08/16/21 06:59 Microbiology Microbiology 08/10/21 Gastrointestinal Tract Panel (PCR) - Final, Complete 08/10/21 Gram Stain - Final, Complete 08/10/21 Wound Culture - Final, Complete Staphylococcus Sp Coag Neg Corynebacterium Species 08/10/21 Gram Stain - Final, Complete 08/10/21 Wound Culture - Final, Complete Enterococcus Faecalis Bacillus Sp., Not Anthracis 08/10/21 Gram Stain - Final, Complete 08/10/21 Wound Culture - Final, Complete Enterococcus Faecalis Staphylococcus Sp Coag Neg Bacillus Sp., Not Anthracis 08/10/21 - Final, Complete 08/09/21 Blood Culture - Final, Complete NO GROWTH AFTER 5 DAYS 08/09/21 Urine Culture - Final, Complete Escherichia Coli 08/09/21 Blood Culture - Final, Complete NO GROWTH AFTER 5 DAYS Sherry Ortiz MD Aug 16, 2021 18:51
[2021-08-16] MEDS: RAMELTEON 8 MG TAB (ROZEREM) PO SCH (20:21)
[2021-08-16] MEDS ORDERED: LORazepam 2 MG/ML VIAL IV PRN (20:45)
[2021-08-16 22:00] VITALS: BP 136/78
[2021-08-17 06:00] VITALS: BP 154/78
[2021-08-17] MEDS: PANTOPRAZOLE 40MG TAB (PROTONIX) PO SCH (06:19)
[2021-08-17] MEDS: ANALGESIC BALM CRM 3OZ TOP SCH ×2 (06:19→20:59)
[2021-08-17] MEDS: FUROSEMIDE 20 MG TAB PO SCH (06:19)
[2021-08-17] MEDS: predniSONE 10 MG TAB PO SCH (06:19)
[2021-08-17] MEDS: LINEZOLID 600MG TABLET (ZYVOX) PO SCH ×2 (06:19→20:59)
[2021-08-17] MEDS ORDERED: LORazepam 2 MG/ML VIAL As Ordered ONE (07:44)
[2021-08-17] MEDS: LACTOBACILLUS ACIDOPHILUS CAP (BACID) PO SCH ×4 (07:50→17:26)
[2021-08-17] MEDS: EMLA CREAM 5GM TUBE (LIDOCAINE/PRILOCAINE) TOP SCH (07:51)
[2021-08-17 08:54] LABS: HEMATOCRIT 26.9 % (36.0-47.0); HEMOGLOBIN 8.5 g/dl (12.0-15.5); MEAN CORPUSCULAR HEMOGLOBIN 27.7 pg (27.0-33.0); MEAN CORPUSCULAR HGB CONC 31.6 g/dl (32.0-36.5); MEAN CORPUSCULAR VOLUME 87.6 fl (80.0-96.0); RED BLOOD COUNT 3.07 10^6/uL (4.00-5.40); WHITE BLOOD COUNT 6.5 10^3/uL (4.0-10.0)
[2021-08-17 09:09] LABS: PLATELET COUNT, AUTOMATED 76 10^3/uL (150-450)
[2021-08-17] MEDS: DARBEPOETIN 100 MCG/0.5 ML *DIALYSIS* SYRINGE (J0882) IV SCH (09:21)
[2021-08-17 10:11] LABS: ALBUMIN 1.7 GM/DL (3.2-5.2); BILIRUBIN,TOTAL 0.6 MG/DL (0.2-1.0); CALCIUM LEVEL 6.8 MG/DL (8.8-10.2); CREATININE FOR GFR 6.84 MG/DL (0.55-1.30); GLOMERULAR FILTRATION RATE 6.2 (>39); POTASSIUM SERUM 4.7 MEQ/L (3.5-5.1); TOTAL PROTEIN 4.6 GM/DL (6.4-8.2)
[2021-08-17 14:00] VITALS: BP 136/85
--- NOTE | 2021-08-17 14:15 | IPN ---
PROGRESS NOTE DATE: 08/17/2021 SUBJECTIVE: Ms. Ocampo is seen this morning during dialysis. Apparently she was quite agitated and required sedation with Ativan. She is still very uncooperative and has a sitter. PHYSICAL EXAMINATION: Temperature 99 degrees Fahrenheit, heart rate 82 per minute and respiratory rate 16 per minute. Blood pressure is down to 110/70 mmHg and oxygen saturation 97%. Head: Atraumatic. Neck: Supple and without JVD or thyroid enlargement. Heart: Sounds are regular. Lungs: With poor inspiratory effort. Abdomen: Soft and nontender and bowel sounds are normal. Extremities: Without any cyanosis or clubbing. Right arm AV fistula is currently being used of dialysis. LABORATORY DATA: Today's labs show: WBC count 6.5, hemoglobin 8.5, hematocrit 26.9 and platelets 76,000. Sodium 138, potassium 4.7, CO2 18, BUN 74, creatinine 6.84. Total protein 4.6 and albumin 1.7. PROBLEMS/PLAN: 1. End-stage renal disease: Patient is currently being dialyzed and she is tolerating well. 2. Metabolic acidosis: This is due to end-stage renal disease and missed dialysis yesterday. She is being dialyzed today and will be corrected. No other intervention is needed. 3. Altered mentation and agitation: Most likely her dementia is getting worse. This is a chronic issue and she probably has superimposed worsening due to hospitalization. Unfortunately she is not doing very well. The hospitalist service will need to discuss with her son about of plan of future care. Patient is not able to take care of herself at home. 4. Sacral decubitus ulcers: This is another issue that patient has been neglecting. Her nutrition is poor and her prognosis remains guarded as she is lying in her bed most of the time. 5. Protein calorie malnutrition: Patient has not been eating well and albumin is only 1.7.
--- NOTE | 2021-08-17 17:46 | IPNPDOC ---
Text Note Date of Service The patient was seen on 08/17/21. NOTE SUBJECTIVE: -Confused throughout our conversation today. Suspicious, believes staff is out to cause her harm. Expressed desire to go home. Will not engage when we start discussing the lack of safety alone at home. -Labile mentation, was upset this morning in dialysis, required ativan OBJECTIVE: VITAL SIGNS: see below GENERAL APPEARANCE: Cachectic, cNAD, AOx3 HEENT: NCAT, EOMI, MMM, wears dentures, in place. Anicteric sclerae. Bitemporal wasting Neck: supple, no tracheal deviation, no JVD CARDIOVASCULAR: sinus tachycardia, systolic murmur LUNGS: No wheezing or crackles. Moving air well. Breathing comfortably on room air ABDOMEN: Normoactive bowel sounds, soft, has some discomfort but otherwise am able to perform deep palpation throughout without guarding or grimacing. EXTREMITIES: L>R lower extremities, reportedly per baseline. Otherwise WWP without significant edema. has RUE fistula with a palpable thrill INTEG: Multiple Stage II decub ulcers, coccyx and buttocks. Also one behind neck. NEUROLOGICAL: would not answer orientation questions today, no focal deficits PSYCHIATRIC: depressed mood, nonconversant today LABORATORY DATA: Please see below MICRO: BCx NG x 24 hours Decubitus ulcer cx: coag neg methicillin sensitive staph, bacillus, E. fecalis C. diff neg GI panel: neg UCx E coli IMAGING: CT abd/pelvis: Small bilateral pleural effusions with adjacent patchy atelectasis or infiltrate. No free air or bowel obstruction. Possible focal inflammatory or neoplastic wall thickening of the superior rectum. Mild free fluid in the pelvis. No hydronephrosis bilaterally. MICROBIOLOGY: Please see below. Assessment and Plan 80 y/o elderly W w/ ESRD on M,W,F HD, anemia of chronic disease, uncontrolled hypertension, microscopic polyangiitis with lung involvement, CAD with moderate pulmonary hypertension, vit D deficient, paroxysmal afib, who was admitted to medicine for sepsis 2/2 a UTI with course c/b hospital associated delirium vs. progressive dementia. Physical deconditioning secondary to acute and chronic illness -PT/OT, is labile, sometimes refuses -Please refer to their notes -AT this time patient is a fall risk and an unsafe discharge to go back to independent living situation. Recommend continued rehab. -PFS is on board nad in discussion with son Sesar zuleta UTI, resolved sepsis -resolved fever, tachycardia, chills -BCx neg -Daily CBC -Completed treatment with ceftriaxone 08/13/2021 Diarrhea, r/o colitis, resolved -Decreasing amount of diarrhea -GI panel neg for c. diff -BCx neg -Daily CBC -Renal diet Stage II decubitus ulcers coccyx, neck-multiple -See wound cultures, polymicrobial -Not likely to be source per surgery, Dr. Box. No need for debridement currently but may require it later -MRSA neg -She received last dose of ceftriaxone and, after discussion with Dr. Veliz, recommended Linezolid (Day4) x 7 days to cover all wounds + UTI Delerium and paranoia likely 2/2 to hospital stay, sleep deprivation vs. progressive dementia -Underlying behaviors including ignoring staff (myself included), refusing food, aggression -Per son, this happens intermittently -Waxes and wanes -PFS onboard, discussing rehab vs. placement ? neoplastic wall thickening of the superior rectum -cannot r/o on CT above -Spoke with surgery -Will need further w/u later, refer to surgery note ESRD on HD (MWF) 2/2 Microscopic polyangitis -Nephrology following on HD Anemia of chronic disease -H/H stable -receives Aranesp per nephrology, stable Secondary hyperparathyroidism. -calcitriol -Nephrology on board Acute thrombocytopenia -PLTs low, not chronic -No s/s of bleeding -Monitor with daily CBC -D/c'd d heparin flushes -HIT ab negative -If worsens, to consider heme consult Microscopic polyangiitis with lung involvement. -stable for now, will continue home meds per med rec when completed -On steroids Severe protein calorie malnutrition -BMI of 17.4, low albumin , bitemporal wasting and diffuse muscular wasting. Hypertension -c/w home amlodipine, toprol and losartan with hold parameters -If BP starts to trend down with sepsis, d/c all these meds and start stress dose steroids + possibly some fluid. Mild non rheumatic valvular heart disease with Moderate pulmonary hypertension. -Known Mild and Mild AR and Mild MR. -EF low normal 50% to 55% per prior TTE Vitamin D deficiency -c/w home calcitriol Paroxysmal atrial fibrillation not on anticoagulation -STable. - currently in sinus DVT prophylaxis: TEDs and SCDs. Not on AC due to worsening thrombocytopenia DISPOSITION: Acute inpatient. Nephrology, surgery consulted. Refusing PT, unsafe discharge otherwise. Will need rehab vs. placement likely. VS,Fishbone, I+O VS, Fishbone, I+O Laboratory Tests 08/17/21 08:29 Vital Signs Date Time Temp Pulse Resp B/P (MAP) Pulse Ox O2 Delivery O2 Flow Rate FiO2 08/17/21 14:00 97.7 90 18 136/85 (102) 97 Room Air I&O- Last 24 Hours up to 6 AM 08/17/21 06:00 Intake Total 610 ml Output Total 150 ml Balance 460 ml ASHER JEWELL MD Aug 17, 2021 17:46
[2021-08-17] MEDS: RAMELTEON 8 MG TAB (ROZEREM) PO SCH (20:59)
[2021-08-17] MEDS: ACETAMINOPHEN TAB 650MG DOSE (2X325MG) PO PRN (21:01)
[2021-08-18 06:00] VITALS: BP 126/71
[2021-08-18] MEDS: PANTOPRAZOLE 40MG TAB (PROTONIX) PO SCH (08:51)
[2021-08-18] MEDS: LINEZOLID 600MG TABLET (ZYVOX) PO SCH ×2 (08:51→21:17)
[2021-08-18] MEDS: FUROSEMIDE 20 MG TAB PO SCH (08:51)
[2021-08-18] MEDS: predniSONE 10 MG TAB PO SCH (08:51)
[2021-08-18] MEDS: LACTOBACILLUS ACIDOPHILUS CAP (BACID) PO SCH ×3 (08:51→18:17)
[2021-08-18] MEDS: ANALGESIC BALM CRM 3OZ TOP SCH ×2 (08:52→21:16)
--- NOTE | 2021-08-18 14:33 | IPN ---
NEPHROLOGY PROGRESS NOTE DATE: 08/18/2021 SUBJECTIVE: Ms. Ocampo is seen this morning on her bedside. She underwent hemodialysis yesterday. Yesterday she was very agitated, required a sitter and Ativan. Today she is still somewhat confused, but not agitated. She could not go on with having dialysis yesterday. PHYSICAL EXAMINATION: Temperature 8.8 degrees Fahrenheit, heart rate 84 per minute and respiratory rate 14 per minute. Blood pressure 126/70 mmHg and oxygen saturation 97% on room air. Head: Atraumatic. Neck: Supple and without JVD or thyroid enlargement. Heart: Sounds are regular. Lungs: Clear to auscultation. Abdomen: Soft and nontender and bowel sounds are normal. Extremities: Without any cyanosis or clubbing. Right upper arm AV fistula is patent. Neurologically: She is somewhat confused and disoriented, but has no focal neurological deficit. LABORATORY DATA: She did not have any new labs done today. PROBLEMS/PLAN: 1. End-stage renal disease: Patient was dialyzed yesterday and we will plan next dialysis for tomorrow. At present there is no emergent need of dialysis today. 2. Hypertension: Blood pressure seems to be very well controlled on current anti-hypertensive medications and no changes are being made today. 3. Anemia: Her anemia has been stable and she receives Aranesp 100 mcg once a week during dialysis. 4. Sacral decubitus ulcers: Unfortunately her nutrition has been poor and she lies on her back most of the time. She has been on Zyvox in addition to wound care.
[2021-08-18] MEDS: ACETAMINOPHEN TAB 650MG DOSE (2X325MG) PO PRN (14:39)
--- NOTE | 2021-08-18 20:08 | IPNPDOC ---
Text Note Date of Service The patient was seen on 08/18/21. NOTE SUBJECTIVE: -No acute complaints OBJECTIVE: VITAL SIGNS: see below GENERAL APPEARANCE: Cachectic, cNAD, AOx3 HEENT: NCAT, EOMI, MMM, wears dentures, in place. Anicteric sclerae. Bitemporal wasting Neck: supple, no tracheal deviation, no JVD CARDIOVASCULAR: sinus tachycardia, systolic murmur LUNGS: No wheezing or crackles. Moving air well. Breathing comfortably on room air ABDOMEN: Normoactive bowel sounds, soft, has some discomfort but otherwise am able to perform deep palpation throughout without guarding or grimacing. EXTREMITIES: L>R lower extremities, reportedly per baseline. Otherwise WWP without significant edema. has RUE fistula with a palpable thrill INTEG: Multiple Stage II decub ulcers, coccyx and buttocks. Also one behind neck. NEUROLOGICAL: would not answer orientation questions today, no focal deficits PSYCHIATRIC: depressed mood, nonconversant today LABORATORY DATA: Reviewed MICRO: BCx NG x 24 hours Decubitus ulcer cx: coag neg methicillin sensitive staph, bacillus, E. fecalis C. diff neg GI panel: neg UCx E coli IMAGING: CT abd/pelvis: Small bilateral pleural effusions with adjacent patchy atelectasis or inf iltrate. No free air or bowel obstruction. Possible focal inflammatory or neoplastic wall thickening of the superior rectum. Mild free fluid in the pelvis. No hydronephrosis bilaterally. MICROBIOLOGY: Please see below. Assessment and Plan 80 y/o elderly W w/ ESRD on M,W,F HD, anemia of chronic disease, uncontrolled hypertension, microscopic polyangiitis with lung involvement, CAD with moderate pulmonary hypertension, vit D deficient, paroxysmal afib, who was admitted to medicine for sepsis 2/2 a UTI with course c/b hospital associated delirium vs. progressive dementia. Physical deconditioning secondary to acute and chronic illness -PT/OT, is labile, sometimes refuses. Please refer to their notes -At this time patient is a fall risk and an unsafe discharge to go back to independent living situation. Recommend continued rehab. -PFS is on board and in discussion with son about rehab vs. placement E. coli UTI, resolved sepsis -resolved fever, tachycardia, chills -BCx neg -Daily CBC -Completed treatment with ceftriaxone 08/13/2021 Diarrhea, r/o colitis, resolved -Decreasing amount of diarrhea -GI panel neg for c. diff -BCx neg -Daily CBC -Renal diet Stage II decubitus ulcers coccyx, neck-multiple -See wound cultures, polymicrobial -Not likely to be source per surgery, Dr. Box. No need for debridement currently but may require it later -MRSA neg -She received last dose of ceftriaxone and, after discussion with Dr. Veliz, recommended Linezolid (Day4) x 7 days to cover all wounds + UTI Delerium and paranoia likely 2/2 to hospital stay, sleep deprivation vs. progressive dementia -Underlying behaviors including ignoring staff (myself included), refusing food, aggression -Per son, this happens intermittently -Waxes and wanes -PFS onboard, discussing rehab vs. placement ? neoplastic wall thickening of the superior rectum -cannot r/o on CT above -Spoke with surgery -Will need further w/u later, refer to surgery note ESRD on HD (MW) 2/2 Microscopic polyangitis -Nephrology following on HD Anemia of chronic disease -H/H stable -receives Aranesp per nephrology, stable Secondary hyperparathyroidism. -calcitriol -Nephrology on board Acute thrombocytopenia -PLTs low, not chronic -No s/s of bleeding -Monitor with daily CBC -D/c'd d heparin flushes -HIT ab negative -If worsens, to consider heme consult Microscopic polyangiitis with lung involvement. -stable for now, will continue home meds per med rec when completed -On steroids Severe protein calorie malnutrition -BMI of 17.4, low albumin , bitemporal wasting and diffuse muscular wasting. Hypertension -c/w home amlodipine, toprol and losartan with hold parameters -If BP starts to trend down with sepsis, d/c all these meds and start stress dose steroids + possibly some fluid. Mild non rheumatic valvular heart disease with Moderate pulmonary hypertension. -Known Mild and Mild AR and Mild MR. -EF low normal 50% to 55% per prior TTE Vitamin D deficiency -c/w home calcitriol Paroxysmal atrial fibrillation not on anticoagulation -STable. - currently in sinus DVT prophylaxis: TEDs and SCDs. Not on AC due to worsening thrombocytopenia DISPOSITION: Switching to [facility] at this time pending disposition with ongoing PT/OT eval and discussion with family. Nephrology on consult. VS,Fishbone, I+O VS, Fishbone, I+O Vital Signs Date Time Temp Pulse Resp B/P (MAP) Pulse Ox O2 Delivery O2 Flow Rate FiO2 08/18/21 06:00 98.8 84 14 126/71 (89) 97 Room Air I&O- Last 24 Hours up to 6 AM 08/18/21 05:59 Intake Total 420 ml Output Total 850 ml Balance -430 ml ASHER JEWELL MD Aug 18, 2021 09:33
[2021-08-18] MEDS: RAMELTEON 8 MG TAB (ROZEREM) PO SCH (21:16)
[2021-08-18] MEDS: SANTYL OINT 30GM TOP SCH (21:17)
[2021-08-19 06:00] VITALS: BP 133/77
[2021-08-19] MEDS: FUROSEMIDE 20 MG TAB PO SCH (06:08)
[2021-08-19] MEDS: LACTOBACILLUS ACIDOPHILUS CAP (BACID) PO SCH ×2 (06:08→18:17)
[2021-08-19] MEDS: LINEZOLID 600MG TABLET (ZYVOX) PO SCH ×2 (06:08→20:31)
[2021-08-19] MEDS: predniSONE 10 MG TAB PO SCH (06:08)
[2021-08-19] MEDS: PANTOPRAZOLE 40MG TAB (PROTONIX) PO SCH (06:09)
[2021-08-19] MEDS: ANALGESIC BALM CRM 3OZ TOP SCH ×2 (06:09→20:31)
[2021-08-19 06:45] LABS: HEMATOCRIT 27.5 % (36.0-47.0); HEMOGLOBIN 8.1 g/dl (12.0-15.5); MEAN CORPUSCULAR HEMOGLOBIN 27.9 pg (27.0-33.0); MEAN CORPUSCULAR HGB CONC 29.5 g/dl (32.0-36.5); MEAN CORPUSCULAR VOLUME 94.8 fl (80.0-96.0); WHITE BLOOD COUNT 4.6 10^3/uL (4.0-10.0)
[2021-08-19 06:50] LABS: CALCIUM LEVEL 6.9 MG/DL (8.8-10.2); CREATININE FOR GFR 5.47 MG/DL (0.55-1.30); POTASSIUM SERUM 4.7 MEQ/L (3.5-5.1)
[2021-08-19 06:59] LABS: PLATELET COUNT, AUTOMATED 60 10^3/uL (150-450)
[2021-08-19 07:54] LABS: ALBUMIN 1.7 GM/DL (3.2-5.2)
[2021-08-19] MEDS ORDERED: LIDOCAINE 1% SDV 5ML VIAL SQ ONE (10:40)
[2021-08-19] MEDS: LORazepam 1 MG TAB PO PRN (11:10)
[2021-08-19] MEDS: EMLA CREAM 5GM TUBE (LIDOCAINE/PRILOCAINE) TOP SCH (11:11)
[2021-08-19] MEDS: SANTYL OINT 30GM TOP SCH (11:11)
--- NOTE | 2021-08-19 20:30 | IPN ---
NEPHROLOGY PROGRESS NOTE DATE: 08/19/2021 SUBJECTIVE: Mrs. Ocampo is seen this morning at her bedside. She is still very weak and remains mostly in the bed. She denies any nausea, vomiting, dyspnea or chest pain. She is likely to be discharged to the longterm tomorrow, as I have been informed by the nursing staff. The patient's regular dialysis days are Monday, Monday and Monday, however she was dialyzed on Monday, and then we initially had a plan to dialyze her today. Now in view of the discharge plans, we will try to switch her back to her regular schedule. OBJECTIVE: PHYSICAL EXAMINATION: VITAL SIGNS: Temperature is 97.1 degrees Fahrenheit, heart rate 77 per minute and respiratory rate 18 per minute. Blood pressure 133/77 mm of mercury and oxygen saturation is 98% on room air. HEENT: Her head is atraumatic. NECK: Supple and without JVD or thyroid enlargement. HEART: Sounds are regular. LUNGS: Clear to auscultation. ABDOMEN: Soft and nontender and bowel sounds are normal. EXTREMITIES: Without any cyanosis or clubbing. Right arm AV fistula is patent. NEUROLOGICAL: She remains slightly confused and disoriented. She has no focal neurological deficits. LABORATORY STUDIES: Today's labs show a WBC count of 4.6, hemoglobin 8.1 and hematocrit 27.5, platelet count 60,000. Sodium 139, potassium 4.7, CO2 21, BUN 53 and creatinine 5.47. Calcium is 7.9 and phosphorous 7.0. Albumin 1.7. PROBLEMS: 1. End-stage renal disease we had a plan to dialyze her today, however I have been informed that she is likely to be discharged to the longterm tomorrow. We will switch her back to her regular dialysis days of Monday, Monday and Monday. She will be scheduled for next dialysis tomorrow. 2. Anemia her anemia is not improving. She does have iron deficiency and I am ordering Venofer 100 mg with dialysis for 5 doses. She will also receive Aranesp 100 mcg once a week. 3. Infected sacral decubitus she has been on Zyvox and is currently afebrile. 4. History of vasculitis she has been on chronic Prednisone therapy and currently is receiving 10 mg. I am going to cut it down to 5 mg daily. We will consider stopping her Prednisone in the near future. 5. Disposition the patient is being considered for discharge to a longterm. We will try to get her optimized for discharge with dialysis tomorrow morning.
[2021-08-19] MEDS: RAMELTEON 8 MG TAB (ROZEREM) PO SCH (20:31)
[2021-08-20] MEDS: predniSONE 5 MG TAB PO SCH (06:20)
[2021-08-20] MEDS: LACTOBACILLUS ACIDOPHILUS CAP (BACID) PO SCH ×2 (06:20→20:14)
[2021-08-20] MEDS: PANTOPRAZOLE 40MG TAB (PROTONIX) PO SCH (06:20)
[2021-08-20] MEDS: FUROSEMIDE 20 MG TAB PO SCH (06:21)
[2021-08-20] MEDS: ANALGESIC BALM CRM 3OZ TOP SCH ×2 (06:21→20:14)
[2021-08-20 06:25] VITALS: BP 133/75
[2021-08-20] MEDS: EMLA CREAM 5GM TUBE (LIDOCAINE/PRILOCAINE) TOP SCH (07:08)
[2021-08-20] MEDS: LORazepam 1 MG TAB PO PRN (07:44)
[2021-08-20] MEDS: IRON SUCROSE 100MG 5ML VIAL (J1756 PER 1MG) IV SCH (08:54)
[2021-08-20 09:15] LABS: HEMATOCRIT 26.6 % (36.0-47.0); HEMOGLOBIN 8.3 g/dl (12.0-15.5); MEAN CORPUSCULAR HEMOGLOBIN 27.9 pg (27.0-33.0); MEAN CORPUSCULAR HGB CONC 31.2 g/dl (32.0-36.5); MEAN CORPUSCULAR VOLUME 89.6 fl (80.0-96.0); RED BLOOD COUNT 2.97 10^6/uL (4.00-5.40); WHITE BLOOD COUNT 5.3 10^3/uL (4.0-10.0)
[2021-08-20 09:16] LABS: PLATELET COUNT, AUTOMATED 71 10^3/uL (150-450)
[2021-08-20 09:35] LABS: CALCIUM LEVEL 6.8 MG/DL (8.8-10.2); CREATININE FOR GFR 6.32 MG/DL (0.55-1.30); GLOMERULAR FILTRATION RATE 6.8 (>39); POTASSIUM SERUM 4.6 MEQ/L (3.5-5.1)
--- NOTE | 2021-08-20 12:22 | IPN ---
PROGRESS NOTE DATE: 08/20/2021 Mrs. Ocampo is seen during hemodialysis this morning. She is resting comfortably and tolerating dialysis well. She denies any nausea or vomiting. Her appetite has been poor. PHYSICAL EXAMINATION: Temperature 95.3 degrees Fahrenheit, heart rate 75 per minute, respiratory rate 14 per minute, blood pressure 133/75 mmHg, and oxygen saturation 98% on room air. Her head is atraumatic. Neck supple, and jugular venous distention (JVD) not abnormally elevated. Heart sounds are regular and lungs with diminished breath sounds at bases. Abdomen soft and nontender, and bowel sounds are normal. Extremities without any cyanosis or clubbing. Right arm arteriovenous (AV) fistula is currently being used for dialysis. Neurologically she has been somewhat confused and disoriented at times. She does have chronic dementia. On review of labs, WBC count is 5.3, hemoglobin 8.3, and hematocrit 26.6. Platelets 71,000. Sodium 138, potassium 4.6, CO2 of 20, BUN 63, and creatinine 6.32. Calcium level 6.8. PROBLEMS: 1. End-stage renal disease. Patient is being dialyzed and tolerating her dialysis well. This is her regular dialysis day. 2. Anemia. Her anemia is chronic and without any significant change. She does not have any acute blood loss. We will continue with Aranesp once a week during dialysis while she is here. This will be managed in the outpatient dialysis clinic. She should also receive intravenous iron 100 mg every dialysis for 10 doses. 3. Congestive heart failure. Volume status reasonably well compensated, and we will continue to manage with dialysis. DISPOSITION: Patient is likely to be discharged to [facility] today after dialysis. She will followup in outpatient dialysis clinic.
[2021-08-20] MEDS: RAMELTEON 8 MG TAB (ROZEREM) PO SCH (20:13)
[2021-08-20] MEDS: SANTYL OINT 30GM TOP SCH (20:14)
[2021-08-20] MEDS: ACETAMINOPHEN TAB 650MG DOSE (2X325MG) PO PRN (23:57)
[2021-08-21 06:00] VITALS: BP 120/66
[2021-08-21 07:10] LABS: HEMATOCRIT 28.5 % (36.0-47.0); HEMOGLOBIN 8.6 g/dl (12.0-15.5); MEAN CORPUSCULAR HEMOGLOBIN 27.5 pg (27.0-33.0); MEAN CORPUSCULAR HGB CONC 30.2 g/dl (32.0-36.5); MEAN CORPUSCULAR VOLUME 91.1 fl (80.0-96.0); RED BLOOD COUNT 3.13 10^6/uL (4.00-5.40); WHITE BLOOD COUNT 3.5 10^3/uL (4.0-10.0)
[2021-08-21 07:11] LABS: PLATELET COUNT, AUTOMATED 62 10^3/uL (150-450)
[2021-08-21 07:33] LABS: CALCIUM LEVEL 7.2 MG/DL (8.8-10.2); CREATININE FOR GFR 3.63 MG/DL (0.55-1.30); GLOMERULAR FILTRATION RATE 12.9 (>39); POTASSIUM SERUM 3.9 MEQ/L (3.5-5.1)
[2021-08-21] MEDS: predniSONE 5 MG TAB PO SCH (08:56)
[2021-08-21] MEDS: ANALGESIC BALM CRM 3OZ TOP SCH ×2 (08:56→20:42)
[2021-08-21] MEDS: LACTOBACILLUS ACIDOPHILUS CAP (BACID) PO SCH ×2 (08:56→17:35)
[2021-08-21] MEDS: PANTOPRAZOLE 40MG TAB (PROTONIX) PO SCH (08:56)
[2021-08-21] MEDS: FUROSEMIDE 20 MG TAB PO SCH (08:56)
[2021-08-21] MEDS: SANTYL OINT 30GM TOP SCH (08:57)
--- NOTE | 2021-08-21 11:21 | IPN ---
PROGRESS NOTE DATE: 08/21/2021 SUBJECTIVE: Bettye is seen and examined this morning at the bedside. Her glucose on chemistry this morning was only 52. Patient tells me she has been on eating. She denies any complaints. She looks quite frail and weak. She was dialyzed yesterday with 1 liter of fluid removed. PHYSICAL EXAMINATION: Vital signs: Temperature 97.5, pulse 78, respiratory rate 16, blood pressure 120/66, saturating 97% on room air. Intake yesterday was only recorded as 170 mL. Dialysis yesterday removed 1 liter. Weight on the bed scale today is not recorded. General: Patient is seen lying in bed, an elderly and frail appearing female awake, alert, conversational and in no distress. Head: Extraocular movements are intact. Tongue is a little dry. Neck: Supple. Jugular veins are not elevated Heart: Sounds are regular S1 and S2. There is no edema. Lungs: Symmetric air movement. No crackles or rales. She is comfortable on room air. Abdomen: Soft and there are bowel sounds. Extremities: Show scattered bruising. There is fistula in the right arm which is patent. Neurologic: She was able to answer simple questions appropriately and cooperate with physical exam at the time of my visit this morning. LABORATORY DATA: Sodium 139, potassium 3.9, bicarbonate 22, BUN 30, creatinine 3.6, glucose 52. Hemoglobin 8.6, platelets 62, white count 3.5. INPATIENT MEDICATIONS: Reviewed by myself and no changes are noted except for the decrease in prednisone dose to 5 mg by mouth daily. The remainder of medications are the same as yesterday. PROBLEMS/PLAN: 1. End-stage renal disease: On hemodialysis. Patient was dialyzed yesterday and 1 liter of fluid was removed. We generally have minimal fluid removal for this patient. I am not sure how much she eating at this point. She was quite hypoglycemic on her a.m. chemistry today. Her next dialysis will be on Monday and will be a gentle treatment as usual. 2. Anemia in the setting of end-stage renal disease, inflammatory state and iron deficiency: Patient is receiving Venofer and Aranesp with dialysis. Hemoglobin is 8.6 on the latest labs and no need for transfusion at present. 3. Thrombocytopenia: Etiology is unclear. Platelets at 60-80. She is not on any pharmacologic DVT prophylaxis. I am going to hold heparin with her dialysis treatments next week. 4. Hypoglycemia: Nursing staff to encourage oral intake. Glucose on a.m. chemistry today was 52. Patient also has significant protein calorie malnutrition with an albumin of only 1.7 and she needs to be encouraged to eat. 5. Microscopic polyangiitis with lung involvement: I note the dose of prednisone was decreased. She is steroid dependent. 6. Secondary hyperparathyroidism of renal origin: Most recent phosphorus level was 7. Corrected calcium is appropriate. I am not going to start her on a phosphorus binder right now as I am not sure how much her oral intake is.
[2021-08-21] MEDS: RAMELTEON 8 MG TAB (ROZEREM) PO SCH (20:41)
[2021-08-21 22:00] VITALS: BP 122/77
[2021-08-22 00:16] LABS: HEMATOCRIT 28.6 % (36.0-47.0); HEMOGLOBIN 8.7 g/dl (12.0-15.5)
[2021-08-22 06:00] VITALS: BP 135/82
[2021-08-22 06:57] LABS: HEMATOCRIT 27.9 % (36.0-47.0); HEMOGLOBIN 8.4 g/dl (12.0-15.5); MEAN CORPUSCULAR HEMOGLOBIN 27.4 pg (27.0-33.0); MEAN CORPUSCULAR HGB CONC 30.1 g/dl (32.0-36.5); MEAN CORPUSCULAR VOLUME 90.9 fl (80.0-96.0); RED BLOOD COUNT 3.07 10^6/uL (4.00-5.40); WHITE BLOOD COUNT 3.5 10^3/uL (4.0-10.0)
[2021-08-22 07:11] LABS: CALCIUM LEVEL 7.3 MG/DL (8.8-10.2); CREATININE FOR GFR 4.74 MG/DL (0.55-1.30); GLOMERULAR FILTRATION RATE 9.5 (>39); POTASSIUM SERUM 4.1 MEQ/L (3.5-5.1)
[2021-08-22 07:12] LABS: PLATELET COUNT, AUTOMATED 50 10^3/uL (150-450)
[2021-08-22] MEDS: SANTYL OINT 30GM TOP SCH (08:44)
[2021-08-22] MEDS: PANTOPRAZOLE 40MG TAB (PROTONIX) PO SCH (08:44)
[2021-08-22] MEDS: LACTOBACILLUS ACIDOPHILUS CAP (BACID) PO SCH ×2 (08:44→16:54)
[2021-08-22] MEDS: predniSONE 5 MG TAB PO SCH (08:44)
[2021-08-22] MEDS: ANALGESIC BALM CRM 3OZ TOP SCH ×2 (08:44→20:14)
[2021-08-22] MEDS: FUROSEMIDE 20 MG TAB PO SCH (08:44)
[2021-08-22] MEDS: RAMELTEON 8 MG TAB (ROZEREM) PO SCH (20:14)
[2021-08-23 06:00] VITALS: BP 140/83
[2021-08-23 07:10] LABS: HEMOGLOBIN 8.6 g/dl (12.0-15.5); MEAN CORPUSCULAR HEMOGLOBIN 27.9 pg (27.0-33.0); MEAN CORPUSCULAR HGB CONC 30.7 g/dl (32.0-36.5); MEAN CORPUSCULAR VOLUME 90.9 fl (80.0-96.0); RED BLOOD COUNT 3.08 10^6/uL (4.00-5.40); WHITE BLOOD COUNT 5.3 10^3/uL (4.0-10.0)
[2021-08-23 07:22] LABS: CALCIUM LEVEL 7.3 MG/DL (8.8-10.2); CREATININE FOR GFR 5.42 MG/DL (0.55-1.30); GLOMERULAR FILTRATION RATE 8.1 (>39); POTASSIUM SERUM 4.3 MEQ/L (3.5-5.1)
[2021-08-23 08:00] LABS: PLATELET COUNT, AUTOMATED 41 10^3/uL (150-450)
[2021-08-23] MEDS: FUROSEMIDE 20 MG TAB PO SCH (08:21)
[2021-08-23] MEDS: predniSONE 5 MG TAB PO SCH (08:21)
[2021-08-23] MEDS: LACTOBACILLUS ACIDOPHILUS CAP (BACID) PO SCH ×2 (08:21→18:03)
[2021-08-23] MEDS: SANTYL OINT 30GM TOP SCH (08:22)
[2021-08-23] MEDS: PANTOPRAZOLE 40MG TAB (PROTONIX) PO SCH (08:22)
[2021-08-23] MEDS: ANALGESIC BALM CRM 3OZ TOP SCH ×2 (08:23→20:22)
[2021-08-23] MEDS: DARBEPOETIN 100 MCG/0.5 ML *DIALYSIS* SYRINGE (J0882) IV SCH (12:15)
[2021-08-23] MEDS ORDERED: LIDOCAINE 1% SDV 5ML VIAL SC PRN (12:35)
[2021-08-23] MEDS ORDERED: SODIUM CHLORIDE 0.9% 1000ML IV PRN (12:35)
[2021-08-23] MEDS: IRON SUCROSE 100MG 5ML VIAL (J1756 PER 1MG) IV SCH (12:51)
--- NOTE | 2021-08-23 14:54 | IPN ---
PROGRESS NOTE DATE: 08/23/2021 SUBJECTIVE: Bettye is seen and examined this morning at the bedside and later in the afternoon receiving a dialysis treatment. She denies any complaints. She is discharge pending after dialysis. Her platelet count continues to downward trend and she is receiving Heparin free dialysis. She denies any shortness of breath. She tells me that she is eating but the nursing staff is not recording much oral intake. OBJECTIVE: VITAL SIGNS: Temperature is 98.5, pulse is 88, respiratory rate is 16, blood pressure is 140/83, saturating 96% on room air. Weight on the bed scale today is not recorded. Goal dialysis fluid removal today is 0.5 to 1 liter. GENERAL: Patient is seen awake, alert and oriented to person and place, elderly female thin and frail in no acute distress. HEENT: Extraocular muscles are intact. Tongue is moist. NECK: Supple. Jugular veins are not elevated. HEART: Heart sounds are regular. S1 and S2. LUNGS: Clear to auscultation. No crackle or rale. Comfortable on room air. There is a fistula on the right arm which is currently in use. ABDOMEN: Soft and nontender. EXTREMITIES: Muscle wasting and diminished lean muscle mass. There is no edema. There is no clubbing or cyanosis. SKIN: Pallor. NEUROLOGIC: She is oriented to person and place, cooperates with physical exam and answers simple questions appropriately. LABORATORY DATA: White count is 5.3, hemoglobin is 8.6, platelets are 41,000, sodium is 140, potassium is 4.3, bicarbonate is 21, BUN is 56, glucose is 83. INPATIENT MEDICATIONS: Reviewed by myself. No changes noted over the past 24 hours. PROBLEMS: 1. Endstage renal disease, on hemodialysis on a Monday, Monday and Monday schedule. The patient is being dialyzed today with minimal fluid removal up to 1 liter or less which is usual for her. Her electrolytes and volume status are acceptable. Her fistula is in good use. She is receiving Heparin free dialysis in view of ongoing thrombocytopenia. 2. Anemia in the setting of endstage renal disease and iron deficiency. Patient is receiving Venofer and Aranesp with dialysis. The latest hemoglobin is 8.6. There is also underlying chronic inflammatory state. 3. Chronic long-term steroid use. She continues on Prednisone for her history of microscopic polyangiitis. 4. Chronic hypertension. Her antihypertensives were scaled down over the course of this admission and she is only on low dose loop diuretic at this point (her prior home regimen included amlodipine and metoprolol succinate). 5. Thrombocytopenia, the etiology is unclear to me. She is not on any pharmacologic DVT prophylaxis. We continue to hold Heparin with her dialysis treatments.
[2021-08-23] MEDS: RAMELTEON 8 MG TAB (ROZEREM) PO SCH (20:22)
[2021-08-24 06:00] VITALS: BP 131/73
[2021-08-24] MEDS: LACTOBACILLUS ACIDOPHILUS CAP (BACID) PO SCH ×2 (08:54→18:31)
[2021-08-24] MEDS: predniSONE 5 MG TAB PO SCH (08:54)
[2021-08-24] MEDS: FUROSEMIDE 20 MG TAB PO SCH (08:55)
[2021-08-24] MEDS: SANTYL OINT 30GM TOP SCH (08:55)
[2021-08-24] MEDS: ANALGESIC BALM CRM 3OZ TOP SCH ×2 (08:55→21:03)
[2021-08-24] MEDS: PANTOPRAZOLE 40MG TAB (PROTONIX) PO SCH (08:55)
[2021-08-24] MEDS: ACETAMINOPHEN TAB 650MG DOSE (2X325MG) PO PRN (15:58)
[2021-08-24] MEDS: RAMELTEON 8 MG TAB (ROZEREM) PO SCH (21:03)
--- NOTE | 2021-08-24 22:48 | IPN ---
NEPHROLOGY PROGRESS NOTE DATE: 08/24/2021 SUBJECTIVE: Bettye is seen and examined this morning at the bedside. She offers no complaints. I am not sure when she is going to be discharged to [facility]. She was dialyzed yesterday; 500 mL of fluid were removed. She tells me she is eating but nurses are recording very poor oral intake and the patient has severe protein calorie malnutrition and more evident by temporal wasting on exam. OBJECTIVE: VITAL SIGNS: She remains afebrile, hemodynamically stable. Temperature 98.5, pulse 95, respiratory rate 18, blood pressure 131/73, saturating 97% on room air. INTAKE AND OUTPUT: Intake yesterday was not recorded. Dialysis yesterday removed only 500 mL. There were three incontinent bowel movements. GENERAL APPEARANCE: The patient is awake, alert, oriented to person and place, comfortable, in no distress. HEENT: There is bitemporal wasting. The extraocular muscles are intact. Tongue is dry. NECK: Supple. Jugular veins are not elevated. HEART: Sounds are regular, S1, S2. LUNGS: Clear to auscultation, no crackles or rales. There is a fistula in the right arm which is patent with thrill and bruit. ABDOMEN: Soft and nontender. EXTREMITIES: No edema. There is muscle wasting and decreased lean muscle mass. NEUROLOGICAL: She is oriented to person and place, cooperative with physical exam, moves all four extremities on command. LABORATORY STUDIES: Sodium 140, potassium 4.3, creatinine 5.4, albumin 1.7. Hemoglobin 8.6, platelet count 41. INPATIENT MEDICATIONS: The patient's medications were reviewed by myself and no changes are noted over the past 24 hours. PROBLEMS: 1. End-stage renal disease on hemodialysis on a Monday, Monday, Monday schedule depending on when the patient is discharged to [facility], we will see if her next treatment will be as an outpatient or inpatient. She was dialyzed yesterday, August 23 with 500 mL of fluid removed. The patient has poor oral intake and generally has rather minimal amount of fluid removed with her treatments. Her electrolytes and volume status are acceptable. 2. Protein calorie malnutrition albumin is only 1.7. The patient is encouraged for oral intake. She may require some assistance with feeds. She is getting Nepro supplementation. 3. Anemia with chronic renal failure and iron deficiency and chronic inflammatory state she is receiving Aranesp with dialysis along with IV iron and most recent hemoglobin is 8.6 and labs are checked intermittently. 4. Thrombocytopenia etiology is unclear. We will continue to hold Heparin with her dialysis treatments. 5. 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 6. Debility and deconditioning - The patient is elderly and frail. She has significant muscle wasting, bitemporal wasting, protein calorie malnutrition and she is pending halfway placement. She is clear for discharge from a nephrology point of view.
[2021-08-25] MEDS: FUROSEMIDE 20 MG TAB PO SCH (05:28)
[2021-08-25] MEDS: LACTOBACILLUS ACIDOPHILUS CAP (BACID) PO SCH (05:28)
[2021-08-25] MEDS: predniSONE 5 MG TAB PO SCH (05:28)
[2021-08-25] MEDS: PANTOPRAZOLE 40MG TAB (PROTONIX) PO SCH (05:29)
[2021-08-25 06:00] VITALS: BP 149/77
[2021-08-25] MEDS ORDERED: SODIUM CHLORIDE 0.9% 1000ML IV PRN (08:50)
[2021-08-25] MEDS ORDERED: LIDOCAINE 1% SDV 5ML VIAL SC PRN (08:50)
[2021-08-25] MEDS: IRON SUCROSE 100MG 5ML VIAL (J1756 PER 1MG) IV SCH (09:24)
[2021-08-25] MEDS ORDERED: MUSCCRE9 TOP (11:53)
[2021-08-25] MEDS ORDERED: ATIV1TAB7 PO (11:53)
[2021-08-25] MEDS ORDERED: SANT250O8 TOP (11:53)
--- NOTE | 2021-08-25 12:21 | DS.PDOC ---
Discharge Summary General Date of Admission Aug 10, 2021 at 17:54 Date of Discharge 08/25/2021 Attending Physician: ASHER JEWELL MD Specialist/Consultants Involve CACHORRO Bernal Discharge Summary PROCEDURES PERFORMED DURING STAY: None ADMITTING DIAGNOSES: Sepsis 2/2 UTi ESRD, missed dialysis DISCHARGE DIAGNOSES: ESRD, missed HD HFpEF exacerbation Sepsis 2/2 E.coli UTI Slow GI bleed, being referred to GI for outpatient evaluation w/ noted focal superior rectum wall thickening on CT granulomatosis with polyangiitis Hypertension Paroxysmal Afib , not on anticoagulation Vit D deficiency Anemia of Chronic disease Physical deconditioning secondary to acute and chronic illness Stage II decubitus ulcers coccyx, neck-multiple Delirium and paranoia likely 2/2 to hospital stay, sleep deprivation vs. progressive dementia ? neoplastic wall thickening of the superior rectum: Will need further w/u in the outpatient setting per recommendation of surgery. Referring to GI for potential colonoscopy Secondary hyperparathyroidism. Acute thrombocytopenia Severe protein calorie malnutrition Mild non rheumatic valvular heart disease with Moderate pulmonary hypertension. Vitamin D deficiency Paroxysmal atrial fibrillation not on anticoagulation COMPLICATIONS/CHIEF COMPLAINT: Esrd, Missed Dialysis, Uti. HISTORY OF PRESENT ILLNESS: 80 y/o W with a hx of ESRD on HD on M, W, F, paroxysmal afib, microscopic polyangiitis diagnosed in 1998, and vitamin D deficiency, who presented to the [facility] ED reporting that she had been feeling unwell with generalized weakness, subjective fevers, poor appetite and cramping abdominal pain for 3d. She last had HD 4d prior to presentation and was feeling well after, but by 3d prior to presentation she began feeling poorly. She missed HD on the day of presentation and instead presented to the ED for evaluation. She otherwise denies any persistent diarrhea outside of 2 loose stools over the weekend, that were non bloody. She denied hemoptysis, hematemesis, melena, chest pain, palpitations, productive cough, congestion, rhinorrhea, emesis episodes, rashes or bleeding. HOSPITAL COURSE: In the ED she was hemodynamically stable and had a recorded low grade temp of 100 that was an oral temp but had a verbally reported temporal reading of 102 at the beginning. She defervesced without any intervention. Workup was notable for leukocytosis to WBC 13, stable anemia with Hgb 11.3, thrombocytopenia with platelets 85, UA that showed 3+ bacteria, 2+ leukocyte esterase, had 42 WBCx, AST 84, ALT 99, lipase 422, na 135, K 4.6, BUN 60, Cr 5.8, mag 1.9, while CXR showed small bilateral pleural effusion without other noted acute cardiopulmonary abnormalities and CT A/P showed some focal superior rectum wall thickening with otherwise no free air. She was admitted to medicine for sepsis 2/2 a UTI. The rest of her hospital course was as below: Physical deconditioning secondary to acute and chronic illness -At this time patient is a fall risk and an unsafe discharge to go back to independent living situation. Recommend continued rehab. E. coli UTI, resolved sepsis: treated to completion. Diarrhea, r/o colitis: resolved -GI panel was negative Stage II decubitus ulcers coccyx, neck-multiple -See wound cultures, polymicrobial -Not likely to be source per surgery, Dr. Box. No need for debridement currently -MRSA neg -ID was consulted and Dr. Veliz, recommended Linezolid 7 days of treatment, that she completed. Delirium and paranoia likely 2/2 to hospital stay, sleep deprivation vs. progressive dementia -Underlying behaviors including ignoring staff (myself included), refusing food, aggression -Per son, this happens intermittently -Waxes and wanes. For now being discharged to rehab and likely to be recommended for placement. ? neoplastic wall thickening of the superior rectum -Will need further w/u in the outpatient setting per recommendation of surgery. Referring to GI for potential colonoscopy ESRD on HD (MWF) 2/2 Microscopic polyangitis -Nephrology following on HD Acute on chronic anemia. With a history of anemia of chronic disease -No blood products were received this hospitalization as Hgb remained >8. However FOBT was positive and she certainly has a slow GIB for which I am referring her to GI in the outpatient setting for evaluation and potential colonoscopy, especially given the CT findings of noted focal superior rectum wall thickening on CT -receives Aranesp per nephrology Secondary hyperparathyroidism. -calcitriol -Nephrology manages Acute thrombocytopenia -HIT antibody was negative -stopped all heparin products -remains low, to be monitored on CBC. -Outpatient referral to hematology Microscopic polyangiitis with lung involvement. -stable, continue home prednisone 5mg daily Severe protein calorie malnutrition -BMI of 17.4, low albumin , bitemporal wasting and diffuse muscular wasting. 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 -Known Mild and Mild AR and Mild MR. -EF low normal 50% to 55% per prior TTE Vitamin D deficiency -c/w home calcitriol Paroxysmal atrial fibrillation not on anticoagulation - currently in sinus DISCHARGE MEDICATIONS: Please see below. ALLERGIES: Please see below. PHYSICAL EXAMINATION ON DISCHARGE: VITAL SIGNS: Please see below. GENERAL APPEARANCE: Cachectic, NAD HEENT: NCAT, EOMI, MMM, wears dentures, in place. Anicteric sclerae. Bitemporal wasting Neck: supple, no tracheal deviation, no JVD CARDIOVASCULAR: sinus tachycardia, systolic murmur LUNGS: No wheezing or crackles. Moving air well. Breathing comfortably on room air ABDOMEN: Normoactive bowel sounds, soft, has some discomfort but otherwise am able to perform deep palpation throughout without guarding or grimacing. EXTREMITIES: L>R lower extremities, reportedly per baseline. Otherwise WWP without significant edema. has RUE fistula with a palpable thrill INTEG: Multiple Stage II decub ulcers, coccyx and buttocks. Also one behind neck. NEUROLOGICAL: No focal deficits noted, clear speech LABORATORY DATA: Please see below. IMAGING: CT abd/pelvis: Small bilateral pleural effusions with adjacent patchy atelectasis or infiltrate. No free air or bowel obstruction. Possible focal inflammatory or neoplastic wall thickening of the superior rectum. Mild free fluid in the pelvis. No hydronephrosis bilaterally. PROGNOSIS: Fair ACTIVITY: As tolerated DIET: renal diet DISCHARGE PLAN: [facility] DISPOSITION: [facility] DISCHARGE INSTRUCTIONS: [facility]. Nephrology/HD per outpatient schedule, GP within 7d. GI and heme/onc referral ITEMS TO FOLLOWUP ON ON OUTPATIENT: slow GIB Thrombocytopenia ESRD on HD GP/PCP follow up DISCHARGE CONDITION: Stable TIME SPENT ON DISCHARGE: 50 minutes. Vital Signs/I&Os Vital Signs Date Time Temp Pulse Resp B/P (MAP) Pulse Ox O2 Delivery O2 Flow Rate FiO2 08/25/21 06:00 97.5 80 17 149/77 (101) 95 Room Air I&O- Last 24 Hours up to 6 AM 08/25/21 06:00 Intake Total 320 ml Balance 320 ml Microbiology Microbiology 08/17/21 Stool Occult Blood (WILBERTO) - Final, Complete Discharge Medications Scheduled Amlodipine Besylate (Amlodipine Besylate) 10 Mg Tablet, 10 MG PO DAILY, (Reported) Collagenase Clostridium Hist. (Santyl) 30 Gm Oint...g., 0 DOSE TOP DAILY Folic Acid/Vit B Complex and C (Candice-Leslie Tablet) 0.8 Mg Tablet, 1 TAB PO DAILY, (Reported) Furosemide (Furosemide) 20 Mg Tablet, 20 MG PO DAILY, (Reported) Methyl Salicylate/Menthol (Muscle Rub Cream) 85 Gm Cream..g., 1 DOSE TOP BID Metoprolol Succinate (Metoprolol Succinate) 100 Mg Tab.er.24h, 100 MG PO DAILY, (Reported) Pantoprazole Sodium (Pantoprazole Sodium) 40 Mg Tablet.dr, 40 MG PO DAILY, (Reported) Prednisone (Prednisone) 5 Mg Tablet, 5 MG PO DAILY, (Reported) Scheduled PRN Acetaminophen (Acetaminophen) 500 Mg Tablet, 500 MG PO BID PRN for PAIN, (Reported) Lorazepam (Ativan) 1 Mg Tablet, 1 MG PO DAILYPRN PRN for anxiety, agitation Please administer before HD. Nitroglycerin (Nitrostat) 0.4 Mg Tab.subl, 0.4 MG SL NITRO PRN for CHEST PAIN, (Reported) Allergies Coded Allergies: Penicillins (Verified Allergy, Intermediate, RASH, 08/07/20) clarithromycin (Verified Allergy, Intermediate, rash, 08/07/20) isotretinoin (Verified Allergy, Mild, 08/07/20) cortisone (Verified Allergy, Unknown, 08/07/20) lisinopril (Verified Allergy, Unknown, 08/07/20) warfarin (Verified Adverse Reaction, Intermediate, HALLUCINATIONS, 03/24/21) ASHER JEWELL MD Aug 25, 2021 12:21
--- NOTE | 2021-08-25 13:40 | IPN ---
PROGRESS NOTE DATE: 08/25/2021 SUBJECTIVE: Ms. Wen is seen and examined at the bedside in the hemodialysis unit. Her fistula recently infiltrated. She has some ecchymosis around the fistula site and also distal to the fistula and she complains of tenderness in the right arm because of that infiltration. She otherwise denies any complaints. She is discharged pending after dialysis today. She reports no shortness of breath. OBJECTIVE: VITAL SIGNS: Temperature is 97.5, pulse is 80, respiratory rate is 17, blood pressure is 149/77, saturating 95% on room air. Weight on the bed scale today is not recorded. INTAKE AND OUTPUT: Dialysis today removed 500 ml. GENERAL: Patient is seen awake, alert and oriented to person and place, receiving her dialysis treatment, elderly frail female with significant bitemporal wasting. HEENT: Extraocular muscles are intact. Tongue is moist. NECK: Supple. Jugular veins are not elevated. HEART: Heart sounds are regular S1 and S2. LUNGS: Clear to auscultation. No crackle or rale. ABDOMEN: Soft and nontender. There are bowel sounds. EXTREMITIES: There is a fistula in the right arm which is patent and in use. There is some ecchymosis and infiltration at the fistula site. Her extremities otherwise do not show any clubbing or cyanosis. There is significant muscle wasting. SKIN: Skin shows some pallor. LABORATORY DATA: Hemoglobin is 8.6, platelets are 41,000, sodium 140, potassium is 4.3, glucose is 83, these labs are from August 23. INPATIENT MEDICATIONS: Reviewed by myself and no changes noted over the past 24 hours. PROBLEMS: 1. Endstage renal disease on hemodialysis on a Monday, Monday and Monday schedule. Patient is dialyzed today. She has some tenderness at the fistula site because of recent infiltration and ecchymosis at the fistula and distal to the fistula. I advised her it will take several days to resolve. Otherwise, we had no issues using her fistula for her treatment today. Her electrolytes and volume status are acceptable. She will follow-up in the outpatient dialysis unit. There is a plan to discharge her after dialysis today. 2. Anemia related to chronic inflammatory state, iron deficiency and renal failure. Patient continues on Venofer and Aranesp with dialysis. 3. Thrombocytopenia. She is receiving Heparin free dialysis. 4. Chronic long-term steroid use. Patient is prednisone dependent for a history of microscopic polyangiitis. She denies any pulmonary complaints. She is saturating well on room air. 5. Protein calorie malnutrition. Albumin is very poor at only 1.7. Patient is frail with decreased lean muscle mass and significant bitemporal wasting. Hopefully, she gets assistance with feeds at the longterm and she is encouraged to continue with Nepro and other protein supplementation.
[2021-08-25] MEDS: ANALGESIC BALM CRM 3OZ TOP SCH (15:40)
[2021-08-25] MEDS: SANTYL OINT 30GM TOP SCH (15:41)
== END 2021-08-25 16:33 | DRG 871 ==
LOC: M ED 08:29 → M ED INP 08:30 → ENRESERV 17:34 → M MS5PR 18:55 → OBSVTOIN 08-10 17:54 → M PCU 08-10 18:54 → M MSPAV 08-12 14:48
PROVIDERS: ADMIT Internal Medicine; ATTEND Internal Medicine
PROC: 5A1D70Z Performance of Urinary Filtration, Intermittent, Less than 6 Hours Per Day (ICD-10-PCS; principal; 2021-08-10)
DX: A41.9 Sepsis, unspecified organism (principal); N18.6 End stage renal disease; E43 Unspecified severe protein-calorie malnutrition; I50.33 Acute on chronic diastolic (congestive) heart failure; I13.2 Hypertensive heart and chronic kidney disease with heart failure and with stage 5 chronic kidney disease, or end stage renal disease; R64 Cachexia; N25.81 Secondary hyperparathyroidism of renal origin; M30.1 Polyarteritis with lung involvement [Churg-Strauss]; N39.0 Urinary tract infection, site not specified; K92.2 Gastrointestinal hemorrhage, unspecified; F03.91 Unspecified dementia, unspecified severity, with behavioral disturbance; Z68.1 Body mass index [BMI] 19.9 or less, adult; L89.152 Pressure ulcer of sacral region, stage 2; I48.0 Paroxysmal atrial fibrillation; E55.9 Vitamin D deficiency, unspecified; D50.9 Iron deficiency anemia, unspecified; I27.20 Pulmonary hypertension, unspecified; K52.9 Noninfective gastroenteritis and colitis, unspecified; D63.1 Anemia in chronic kidney disease; D69.6 Thrombocytopenia, unspecified; R41.0 Disorientation, unspecified; D37.5 Neoplasm of uncertain behavior of rectum; B96.20 Unspecified Escherichia coli [E. coli] as the cause of diseases classified elsewhere; Z99.2 Dependence on renal dialysis; Z20.822 Contact with and (suspected) exposure to COVID-19; Z88.0 Allergy status to penicillin; Z88.1 Allergy status to other antibiotic agents; Z88.8 Allergy status to other drugs, medicaments and biological substances; Z79.52 Long term (current) use of systemic steroids; Z79.899 Other long term (current) drug therapy

== ENCOUNTER 2021-09-27 11:27 | Inpatient (IN) | payer MEDICARE, MEDICAID ==
[~2021-09-27] VITALS: Ht 162.6 cm; Wt 42.0 kg
[~2021-09-27 11:27] MED LIST changes: +AMLO1TAB25 PO; +ATIV1TAB7 PO; +MUSCCRE9 TOP; +SANT250O8 TOP
--- OUTSIDE RECORDS SUMMARY | 2021-09-27 11:34 | CCD ---
Author Author [facility] Organization [facility] Address Unknown Phone Unavailable Care Team Providers Care Gem Stone Cutter Name Role Phone EDOUARDMAO RAMESH Unavailable Unavailable Dimitri CARPENTER MD Unavailable Unavailable Dimitri CARPENTER MD Unavailable Unavailable Dimitri CARPENTER MD Unavailable Unavailable Dimitri CARPENTER MD Unavailable Unavailable Dimitri CARPENTER MD Unavailable Unavailable Dimitri CARPENTER MD Unavailable Unavailable Dimitri CARPENTER MD Unavailable Unavailable SEARS, Zach VY DO Unavailable Unavailable SEARS, A VY [...] L Lien RPA Unavailable Unavailable Macedo, L Line RPA Unavailable Unavailable Macedo, L Lien RPA [...] Unavailable Macedo, L Lien RPA Unavailable Unavailable MAO IZQUIERDO Unavailable Unavailable Re-disclosure Warning The records that [...] is protected by Article 27-F of the [facility] Public Health law. If you continue you may have access to information: Regarding HIV / AIDS; Provided by facilities licensed or operated by the [facility] Office of Mental Health; or Provided by the [facility] Office for People With Developmental Disabilities. If such information is present, then the following [facility] mandated warning applies: This information has [...] law may result in a fine or longterm sentence or both. A general authorization for the release of medical or other information is NOT sufficient authorization for further disc losure. Encounters Encounter Providers Location Date Indications Data Source(s ) Outpatient Attender: MAO Farfanant: MAO MEDEIROS 09/23/2021 07:03:22 AM [facility] 09/23/2021 08:03:00 AM [facility] Outpatient Attender: MAO Blancassultant: MAO FARIAS 09/20/2021 03:03:00 PM [facility] 09/20/2021 03:13:00 PM [facility] Outpatient Attender: MAO Pierceltant: MAO MEDEIROS 09/15/2021 02:22:00 PM [facility] 09/15/2021 03:22:00 PM [facility] Outpatient Attender: GREGORY Macdonald/Carol/Javier/Reinkarina 06/24/2021 09:30:00 AM EDT [facility] ([facility]) Office Visit Attender: Jacque Macdonald/Carol/Javier/ Reinkarina 04/22/2021 10:30:00 AM EDT [facility] ([facility]) Office Visit Attender: Lien Macdonald/Carol/Javier/Edson gray 04/01/2021 01:30:00 PM EDT [facility] ([facility]) Outpatient Attender: VY Juan/Carol/Javier/Reindl 03/29/2021 03:30:00 PM EDT [facility] ([facility]) Outpatient Attender: Jacque Macdonald/[place]/Javier/ Reindl 01/07/2021 02:45:00 PM EDT [facility] ([facility]) Outpatient Attender: Lien Macedo RPA Renae/[place]/Javier/R eindl 01/05/2021 11:15:00 AM EDT [facility] ([facility]) Outpatient Attender: VY Juan/[place]/Javier/Reindl 08/25/2020 10:00:00 AM EST [facility] ([facility]) Office Visit Attender: Lien Macdonald/[place]/Javier/R eindl 08/18/2020 09:00:00 AM EDT [facility] ([facility]) Medications Medication Brand Name Start Date Product Form Dose Route Admi nistrative Instructions Pharmacy Instructions Status Indications Reaction Description Data Source(s) 100 mg 08/30/2021 12:00:00 AM EST tablet extended release 24 hr 90 TAKE ONE TABLET BY MOUTH EVERY DAY TAKE ONE TABLET BY MOUTH EVERY DAY SOLD: 09/03/2021 [facility] 10 mg 08/01/2021 12:00:00 AM EDT tablet 30 TAKE ONE TABLET BY MOUTH EVERY DAY TAKE ONE TABLET BY MOUTH EVERY DAY SOLD: 09/03/2021 [facility] 10 mg 08/01/2021 12:00:00 AM EDT tablet [...] THREE TABLETS BY MOUTH EVERY DAY SOLD: 08/23/2021 [facility] 5 mg 03/16/2021 12:00:00 AM [...] MOUTH EVERY DAY SOLD: 03/05/2021 [facility] 20 mg 03/02/2021 12:00:00 AM EDT tablet 90 TAKE ONE TABLET BY MOUTH EVERY DAY TAKE ONE TABLET BY MOUTH EVERY DAY SOLD: 08/23/2021 [facility] 100 mg 03/02/2021 12:00:00 AM [...] TABLET BY MOUTH EVERY DAY SOLD: 03/20/2021 [facility] Ascorbic Acid 60 MG / Calcium [...] TABLET BY MOUTH EVERY DAY SOLD: 06/19/2021 [facility] Ascorbic Acid 60 MG / Calcium [...] BY MOUTH ONCE A WEEK ON MONDAY SOLD: 12/23/2020 [facility] pantoprazole 40 MG [...] DAY SOLD: 01/03/2021 [facility] 5 mg 07/03/2020 12:00:00 AM [...] MOUTH EVERY DAY SOLD: 08/05/2020 [facility] 5 mg 07/03/2020 12:00:00 AM EDT tablet 90 TAKE 3 TABLETS BY MOUTH EVERY DAY TAKE 3 TABLETS BY MOUTH EVERY DAY SOLD: 09/04/2020 [facility] pantoprazole 40 MG Delayed Release [...] MOUTH EVERY DAY SOLD: 12/04/2020 [facility] Insurance Providers Payer name Policy type / Coverage type Policy ID Covered alliance party ID Covered alliance party's relationship to dennison Policy [place] [id number] SP [id number] C MEDICARE [id number] SP [id number] MEDICARE PART A -O/P [id number] 18 [id number] MEDICAID -O/P [id number] [place] [id number] SP [id number] NGS [place] O [id number] S [id number] MEDICARE C [id number] S [id number] MEDICAID M [id number] S [id number] MEDICAID [id number] SP [id number] MEDICARE [id number] SP [id number] M MEDICAID UNAVAILABLE UNAVAILA BLE MEDICARE C [id number] S [id number] M [id number] M Problems, Conditions, and Diagnoses Code Display Name Description Problem Type Effective Dates Data Source(s) [id number] Disruption of wound, unspecified, initia l encounter Disruption of wound, unspecified, initial encounter Diagnosis 09/20/2021 03:03:00 PM EST [facility] J449 Chronic obstructive pulmonary disease, u nspecified Chronic obstructive pulmonary disease, unspecified Diagnosis 09/15/2021 02:22:00 PM EST Ca [facility] N18.6 End-stage renal disease End-stage renal disease Proble m 03/29/2021 12:00:00 AM EDT [facility] ([facility] ) R04.2 Hemoptysis Hemoptysis Problem 03/29/2021 12:00:00 AM ED T [facility] ([facility] ) R91.8 Abnormal findings on diagnostic imaging of lung Abnormal findings on diagnostic imaging of lung Problem 08/25/2020 12:00:00 AM EST [facility] ([facility] ) R04.0 Bleeding from nose Bleeding from nose Problem 0 12:00:00 AM EST [facility] ([facility] ) Surgeries/Procedures Procedure Description Date Indications Data Source(s) Removal Of Tunneled Central Venous Catheter W/O Subcutaneous Port 07/13/2021 12:00:00 AM EDT [facility] ([facility] ) OFFICE OUTPATIENT VISIT 15 MINUTES 06/24/2021 12:00:00 AM EDT [facility] ([facility]) OFFICE OUTPATIENT VISIT 15 MINUTES 03/29/2021 12:00:00 AM EDT [facility] ([facility], ) ARVEN ANAST OPN UPR ARM BASILIC VEIN TRPOS 03/25/2021 12:00:00 AM EDT [facility] ([facility] ) OFFICE OUTPATIENT VISIT 15 MINUTES 01/07/2021 12:00:00 AM EDT [facility] ([facility], ) OFFICE OUTPATIENT VISIT 15 MINUTES 01/05/2021 12:00:00 AM EDT [facility] ([facility] ) Av Fistula Artery-Vein 08/11/2020 12:00:00 AM EDT [facility] ([facility] ) Results ID Date Data Source [id number] 09/27/2021 07:38:00 AM EST [facility] Name Value Range Interpretation Code Description Data Allyssa rce(s) Supporting Document(s) CULTURE WOUND [facility] _CULTURE WOUND_$$[id number]$$[id number]$$[id number] DATE/TIME: 09/26/2021 11:05Culture: CULTURE WOUND Status: FinalAerobic Bacterial Culture: P2Iogzs skin floraHeavy growth Previous result entered on 09/25/2021 10:45 ET Mixed skin lily Previous result entered on 09/24/2021 11:56 ET Mixed skin lily Previous result entered on 09/23/2021 08:37 ET Microbiological testing to rule out the presence of possible pathogensis in progress.Isolate 1 Staphylococcus aureus Flag: A . . . . . . .1Methicillin - resistantBased on resistance to oxacillin this isolate would be resistant toall currently available beta-lactam antimicrobial agents, with theexception of the newer cephalosporins with anti-MRSA activity, such asCeftaroline -- Continued on next page --Patient: STEPH REARDON Order: [id number] Page 2Culture: CULTURE WOUND Status: Final Scant growth Previous result entered on 09/25/2021 10:45 ET Staphylococcus aureusScant growth Previous result entered on 09/24/2021 11:56 ET Microbiological testing to rule out the presence of possible pathogensis in progress. Previous result entered on 09/23/2021 08:37 ET Microbiological testing to rule out the presence of possible pathogensis in progress.Staphylococcus aureus Flag: APatient: STEPH REARDON Order: [id number] Page 3Culture: CULTURE WOUND Status: Final ====ISOLATE 1 Staphylococcus aureus Isolate 1Antibiotic WILBERTO IntUnits ug/mL ----Ciprofloxacin R R . . . . . .185-9Clindamycin S S . . . . . .193-3Erythromycin R R . . . . . .233-7Gentamicin S S . . . . . .267-5Levofloxacin R R . . . . . .29927-1Pvvtixylk S S . . . . . .87698-6Beslhsisx R R . . . . . .383-0Penicillin R R . . . . . .6932-8Rifampin S S . . . . . .428-3Tetracycline S S . . . . . .496-0Trimethoprim/Sulfa S S . . . . . .516-5Vancomycin S S . . . . . .524-9P1 Test performed by: [employer] CRUZ #: [id number] [address] [place] [phone] [facility] [id number] Director : Bobby Shore MD NPI #:Assembly Line Brazer : -- Continued on next page --Patient: STEPH REARDON Order: [id number] Page 2Culture: CULTURE WOUND Status: Prelim 09/23/21.1057.XMT.SENT REF 09/24/21.1649.XMT.SENT REF 09/27/21.0738.XMT.SENT REF 09/27/21.38. .to [place] via fax ID Date Data Source [id number] 09/15/2021 03:36:00 PM EST [facility] [address] [place] [address] PHONE: [phone] FAX: [phone] Name .................. [id number] RO[facility]. ................. : Number ................... : [id number] Stay type ............. : O/P Discharge Date......... ... : 09/15/21 Admit Date ......... : 09/15/21 Admit Phys .................... : TIMBO Mosley Date of ....... : 1940 Family Phys ................... : TIMBO Mosley Phone .................. : [phone] Age ................................ : 80 Film# .................. .:[id number] Sex ................................. : F Unsigned transcriptions are preliminary reports and do not represent a medical or legal document CHEST 2 VIEWS [id number] COMPLETE:09/15/21 14:50 [place] [id number] Reason for Exam: PAIN,SOB 1 DAY FRONTAL AND LATERAL CHEST 2 VIEWS INDICATION: Pain, shortness of breath 1 day COMPARISON: None FINDINGS: Mediastinal and hilar structures are normal. Cardiac silhouette is unremarkable. The lungs are clear. Lungs are moderately hyperinflated and diaphragms are flattened consistent with COPD. No pleural effusions or pneumothorax. Skeletal structures appear intact. IMPRESSION: COPD. No acute disease. Electronically Reviewed and Signed By Jay Jackman MD , 09/15/21 15:36, [facility] Transcribe Initials: EBEN , Transcribe Date: 09/15/21 15:25, Dictation Date: Copy for: TIMBO CAVANAUGH Copy for: HEMAL INVERNESS via fax Copy for: [address] [place] [address] REC Page 1 of 1 Name Value Range Interpretation Code Description Data Allyssa rce(s) Supporting Document(s) ID Date Data Source [id number] 09/15/2021 03:35:00 PM [facility] Name Value Range Interpretation Code Description Data Allyssa rce(s) Supporting Document(s) TROPONIN T 0.07 NG/ML 0.00 - 0.10 [facility] TROPONIN T0.1 ng/ml Recommended as the c linical threshold value forTroponin T. ID Date Data Source [id number] 09/15/2021 03:34:00 PM [facility] Name Value Range Interpretation Code Description Data Allyssa rce(s) Supporting Document(s) COMPREHENSIVE METABOLIC PANEL [facility] COMPREHENSIVE METABOLIC PANEL Sodium [Moles/volume] in Serum or Plasma 135 mEq/L 134 - 153 [facility] Potassium [Moles/volume] in Serum or Plasma 5.0 mEq/L 3.6 - 5.0 [facility] Chloride [Moles/volume] in Serum or Plasma 95 mEq/L 98 - 107 L [facility] Carbon dioxide, total [Moles/volume] in Serum or Plasma 25 MEQ/L 22 - 30 [facility] Glucose [Mass/volume] in Serum or Plasma 100 MG/DL 70 - 99 H [facility] BUN 46 MG/DL 7 - 21 [facility] al Creatinine [Mass/volume] in Serum or Plasma 3.5 MG/DL 0.7 - 1.5 H [facility] BUN/CREAT 13 8 - 27 [facility] Protein [Mass/volume] in Serum or Plasma 5.9 G/DL 6.3 - 8.2 L [facility] Albumin [Mass/volume] in Serum or Plasma 2.8 G/DL 3.9 - 5.0 L [facility] Globulin [Mass/volume] in Serum by calculation 3.1 GM/DL 2.4 - 3.2 [facility] A/G RATIO 0.9 0.8 - 2.0 [facility] Calcium [Mass/volume] in Serum or Plasma 8.8 MG/DL 8.4 - 10.2 [facility] Bilirubin.total [Mass/volume] in Serum or Plasma 0.8 MG/DL 0.2 - 1.3 [facility] Alkaline phosphatase [Enzymatic activity/volume] in Serum or Plasma 119 U/L 38 - 126 [facility] Aspartate aminotransferase [Enzymatic activity/volume] in Serum or Plasma 37 U/L 5 - 40 [facility] Alanine aminotransferase [Enzymatic activity/volume] in Seru m or Plasma 58 U/L 7 - 56 H [facility] Anion gap 3 in Serum or Plasma 15.0 mmol/L 8.0 - 16.0 [facility] 80 [facility] AFR AMER GFR >60 [facility] Male GFR In terprentation 20-49 yrs >60 mL/min Normal 50-59 yrs >56 mL/min Normal 60-69 yrs >49 mL/min Normal 70-79yrs >42 mL/min Normal 80 and above >35 mL/min Normal Female GFR Interpretation 20-39 yrs >60 mL/min Normal 40-49 yrs >58 mL/min Normal 50-59 yrs >51 mL/min Normal 60-69 yrs >45 mL/min Normal 70-79 yrs >39 mL/min Normal 80 and above >32 mL/min Normal ID Date Data Source [id number] 09/15/2021 03:31:00 PM EST [facility] Name Value Range Interpretation Code Description Data Allyssa rce(s) Supporting Document(s) CBC NO DIFF [facility] COMPLETE BLOOD COUNT Leukocytes [#/volume] in Blood by Automated count 16.7 10^3/uL 4.2 - 11.0 H [facility] Erythrocytes [#/volume] in Blood by Automated count 3.26 10^6/uL 4. 20 - 5.40 L [facility] Hemoglobin [Mass/volume] in Blood 9.3 g/dL 12.0 - 16.0 L [facility] Hematocrit [Volume Fraction] of Blood by Automated count 30.9 % 3 7.0 - 47.0 L [facility] Erythrocyte mean corpuscular volume [Entitic volume] by Auto mated count 94.8 fL 81.0 - 101 [facility] Erythrocyte mean corpuscular hemoglobin [Entitic mass] by Automated count 28.5 pg 27.0 - 34.0 [facility] Erythrocyte mean corpuscular hemoglobin concentration [Mass/volume] by Automated count 30.1 g/dL 31.0 - 36.0 L [facility] Erythrocyte distribution width [Ratio] by Automated count 19.7 % 11.5 - 14.5 H [facility] Platelets [#/volume] in Blood by Automated count 195 10^3/uL 150 - 45 0 [facility] Platelet mean volume [Entitic volume] in Blood by Automated count 9.4 fL 7.4 - 10.4 [facility] ID Date Data Source [id number] 08/23/2021 09:45:00 AM EDT [facility] Name Value Range Interpretation Code Description Data Allyssa rce(s) Supporting Document(s) SARS coronavirus 2 RNA [Presence] in Res piratory specimen by JOSHUA with probe detection [facility]GAT[facility] This lab was ordered by [facility] a nd reported by [facility]. ID Date Data Source [id number] 08/19/2021 11:37:00 AM EDT [facility] Name Value Range Interpretation Code Description Data Allyssa rce(s) Supporting Document(s) SARS coronavirus 2 RNA [Presence] in Res piratory specimen by JOSHUA with probe detection NEGATIVE [facility] This lab was ordered by [facility] a nd reported by [facility]. ID Date Data Source [id number] 08/09/2021 09:03:00 AM EDT [facility] Name Value Range Interpretation Code Description Data Allyssa rce(s) Supporting Document(s) SARS coronavirus 2 RNA [Presence] in Res piratory specimen by JOSHUA with probe detection NEGATIVE [facility] This lab was ordered by [facility] a nd reported by [facility]. ID Date Data Source [id number] 03/25/2021 06:37:00 AM [facility]T [facility] Name Value Range Interpretation Code Description Data Allyssa rce(s) Supporting Document(s) Potassium [Moles/volume] in Serum or Plasma 4.2 meq/L 3.5- 5.1 Normal (applies to non-numeric results) [facility] By: SANIR Time: 621 By: SANIR Time: 621 ID Date Data Source [id number] 03/20/2021 10:40:00 AM EDT [facility] Name Value Range Interpretation Code Description Data Allyssa rce(s) Supporting Document(s) SARS-CoV-2 (COVID-19) RNA [Presence] in Respiratory specimen by JOSHUA with probe detection Not Detected [facility] This lab was ordered by [facility] and reported by [facility]. ID Date Data Source [id number] 08/11/2020 10:32:00 AM EDT [facility] Name Value Range Interpretation Code Description Data Allyssa rce(s) Supporting Document(s) Glucose, Fasting 108 mg/dL 70-100 Above high normal [facility] Blood Urea Nitrogen 57 mg/dL 7-18 Above high normal [facility] ([facility]) Glomerular Filtration Rate 9.3 Below low normal [facility] ([facility]) <content>Units are mL/min/1.73 m2</content>
<content></content>
<content>Chronic Kidney Disease Staging per NKF:</content>
<content></content>
<content>Stage I & II GFR >=60 Normal to Mildly Decreased</content>
<content>Stage III GFR 30- 59 Moderately Decreased</content>
<content>Stage IV GFR 15-29 Severely Decreased</content>
<content>Stage V GFR <15 Very Little GFR Left</content>
<content>ESRD GFR <15 on TORPEDO WORKER</content>
<content></content> Sodium Level 140 meq/L 136-145 Normal (applies to non-numeric res ults) [facility] ([facility]) Creatinine For GFR 4.84 mg/dL 0.55-1.30 Above high normal [facility] ([facility]) Carbon Dioxide Level 24 meq/L 21-32 Normal (applies to non-num sylvester results) [facility] ([facility]) Potassium Serum 4.9 meq/L 3.5-5.1 Normal (applies to non-numeric results) [facility] ([facility]) Chloride Level 108 meq/L 98-107 Above high normal [facility] ([facility]) Calcium Level 7.8 mg/dL 8.8-10.2 Below low normal [facility] ([facility]) Anion Gap 8 meq/L 8-16 Normal (applies to non-numeric resul ts) [facility] ([facility]) ID Date Data Source [id number] 08/11/2020 10:32:00 AM EDT [facility] ([facility]) Name Value Range Interpretation Code Description Data Allyssa rce(s) Supporting Document(s) Potassium [Moles/volume] in Serum or Plasma 4.9 meq/L 3.5- 5.1 Normal (applies to non-numeric results) [facility] ([facility] ) ID Date Data Source [id number] 08/06/2020 10:00:00 AM EDT [facility] Name Value Range Interpretation Code Description Data Allyssa rce(s) Supporting Document(s) SARS coronavirus 2 RNA [facility] This lab was ordered by [facility] and reported by [facility]. Procedure Social History Code Duration Value Status Description Data Source(s ) Smoking 04/01/2021 12:00:00 AM EDT Patient has never smoked co mpleted Patient has never smoked [facility] ([facility]) Vital Signs ID Date Data Source UNK Name Value Range Interpretation Code Description Data Source(s) Systolic blood pressure 138 mm[Hg] 138 mm[Hg] M [facility] ([facility]) Body weight 45.814 kg 45.814 kg [facility] Body surface area Derived from formula 1.48 m2 1.48 m2 [facility] ([facility]) Diastolic blood pressure 68 mm[Hg] 68 mm[Hg] [facility] ([facility]) Body temperature 98.2 [degF] 98.2 [degF] [facility] ([facility]) Body height 65 [in_i] 65 [in_i] [facility] ([facility]) 5'5" Body weight 101.00 [lb_av] 101.00 [lb_av] [facility] ([facility]) Body mass index (BMI) [Ratio] 16.8 kg/m2 16.8 k g/m2 [facility] ([facility]) [place] body weight 125 [lb_av] 125 [lb_av] [facility] Systolic blood pressure 162 mm[Hg] 162 mm[Hg] [facility] Diastolic blood pressure 70 mm[Hg] 70 mm[Hg] [facility] ([facility]) Body mass index (BMI) [Ratio] 17.0 kg/m2 17.0 k g/m2 [facility] ([facility]) Heart rate 76 /min 76 /min [facility] ([facility]) Body weight 102.00 [lb_av] 102.00 [lb_av] [facility] ([facility]) Body weight 46.267 kg 46.267 kg [facility] ([facility]) Body surface area Derived from formula 1.49 m2 1.49 m2 [facility] ([facility]) Body height 65 [in_i] 65 [in_i] [facility] ([facility]) 5'5" [place] body weight 125 [lb_av] 125 [lb_av] [facility] ([facility]) Body height 65 [in_i] 65 [in_i] [facility] ([facility]) 5'5" Body weight 102.00 [lb_av] 102.00 [lb_av] [facility] ([facility]) Body mass index (BMI) [Ratio] 17.0 kg/m2 17.0 k g/m2 [facility] ([facility]) [place] body weight 125 [lb_av] 125 [lb_av] [facility] ([facility]) Body weight 46.267 kg 46.267 kg [facility] ([facility]) Body surface area Derived from formula 1.49 m2 1.49 m2 [facility] ([facility]) Diastolic blood pressure 71 mm[Hg] 71 mm[Hg] [facility] ([facility]) [place] body weight 125 [lb_av] 125 [lb_av] [facility] ([facility]) Body weight 47.798 kg 47.798 kg [facility] ([facility]) Body surface area Derived from formula 1.51 m2 1.51 m2 [facility] ([facility]) Body weight 105.38 [lb_av] 105.38 [lb_av] [facility] ([facility]) Body mass index (BMI) [Ratio] 17.5 kg/m2 17.5 k g/m2 [facility] ([facility]) Systolic blood pressure 157 mm[Hg] 157 mm[Hg] M [facility] ([facility]) Body height 65 [in_i] 65 [in_i] [facility] ([facility]) 5'5" Body mass index (BMI) [Ratio] 18.5 kg/m2 18.5 k g/m2 [facility] ([facility]) Heart rate 65 /min 65 /min [facility] ([facility]) Oxygen saturation in Arterial blood by Pulse oximetry 94 % 94 % [facility] ([facility]) Body temperature 99.0 [degF] 99.0 [degF] [facility] ([facility]) [place] body weight 125 [lb_av] 125 [lb_av] [facility] ([facility]) Body height 65 [in_i] 65 [in_i] [facility] ([facility]) 5'5" Body weight 111.12 [lb_av] 111.12 [lb_av] [facility] [facility]) Systolic blood pressure 102 mm[Hg] 102 mm[Hg] [facility] ([facility]) Diastolic blood pressure 70 mm[Hg] 70 mm[Hg] [facility] ([facility]) Body weight 50.406 kg 50.406 kg [facility] ([facility]) Body surface area Derived from formula 1.54 m2 1.54 m2 [facility] ([facility]) Body weight 112.00 [lb_av] 112.00 [lb_av] [facility] ([facility]) Body mass index (BMI) [Ratio] 18.6 kg/m2 18.6 k g/m2 [facility] ([facility]) [place] body weight 125 [lb_av] 125 [lb_av] [facility] ([facility]) Body weight 50.803 kg 50.803 kg [facility] ([facility]) Body height 65 [in_i] 65 [in_i] [facility] ([facility]) 5'5" Body surface area Derived from formula 1.55 m2 1.55 m2 [facility] ([facility]) Systolic blood pressure 137 mm[Hg] 137 mm[Hg] [facility] ([facility]) Diastolic blood pressure 82 mm[Hg] 82 mm[Hg] [facility] ([facility]) Body height 65 [in_i] 65 [in_i] [facility] ([facility]) 5'5" Body weight 112.12 [lb_av] 112.12 [lb_av] [facility] ([facility]) Body mass index (BMI) [Ratio] 18.7 kg/m2 18.7 k g/m2 [facility] ([facility]) [place] body weight 125 [lb_av] 125 [lb_av] [facility] ([facility]) Body weight 50.860 kg 50.860 kg [facility] ([facility]) Body surface area Derived from formula 1.55 m2 1.55 m2 [facility] ([facility]) Systolic blood pressure 140 mm[Hg] 140 mm[Hg] [facility] ([facility]) Diastolic blood pressure 80 mm[Hg] 80 mm[Hg] [facility] ([facility]) Heart rate 80 /min 80 /min [facility] ([facility]) Oxygen saturation in Arterial blood by Pulse oximetry 97 % 97 % [facility] ([facility]) Body temperature 97.1 [degF] 97.1 [degF] [facility] ([facility]) Body height 65 [in_i] 65 [in_i] [facility] ([facility]) 5'5" Body weight 101.00 [lb_av] 101.00 [lb_av] [facility] ([facility]) Body mass index (BMI) [Ratio] 16.8 kg/m2 16.8 k g/m2 [facility] ([facility]) [place] body weight 125 [lb_av] 125 [lb_av] [facility] ([facility]) Body weight 45.814 kg 45.814 kg [facility] ([facility]) Body surface area Derived from formula 1.48 m2 1.48 m2 [facility] ([facility]) Body mass index (BMI) [Ratio] 16.2 kg/m2 16.2 k g/m2 [facility] ([facility]) Systolic blood pressure 120 mm[Hg] 120 mm[Hg] [facility] ([facility]) Diastolic blood pressure 70 mm[Hg] 70 mm[Hg] [facility] ([facility]) Body height 65 [in_i] 65 [in_i] [facility] ([facility], ) 5'5" Body weight 97.50 [lb_av] 97.50 [lb_av] [facility] ([facility], ) [place] body weight 125 [lb_av] 125 [lb_av] [facility] ([facility], ) Body weight 44.226 kg 44.226 kg [facility] ([facility], )
[2021-09-27] MEDS ORDERED: LEVO750T14 PO (12:10)
[2021-09-27] MEDS ORDERED: OMEP40CA4 PO (12:10)
--- OUTSIDE RECORDS SUMMARY | 2021-09-27 12:31 | CCD ---
Author Author [facility] Organization [facility] Address Unknown Phone Unavailable Care Team Providers Care Respiratory Assistant Name Role Phone EDOUARDMAO RAMESH Unavailable Unavailable [...] is protected by Article 27-F of the [facility] Public Health law. If you continue you may have access to information: Regarding HIV / AIDS; Provided by facilities licensed or operated by the [facility] Office of Mental Health; or Provided by the [facility] Office for People With Developmental Disabilities. If such information is present, then the following [facility] mandated warning applies: This information has been [...] law may result in a fine or residential sentence or both. A general authorization for the release of medical or other information is NOT sufficient authorization for further disc losure. Encounters Encounter Providers Location Date Indications Data Source(s ) Outpatient Attender: MAO Farfanant: MAO MEDEIROS 09/23/2021 07:03:22 AM [facility] 09/23/2021 08:03:00 AM [facility] Outpatient Attender: MAO Blancassultant: MAO FARIAS 09/20/2021 03:03:00 PM [facility] 09/20/2021 03:13:00 PM [facility] Outpatient Attender: MAO Pierceltant: MAO MEDEIROS 09/15/2021 02:22:00 PM [facility] 09/15/2021 03:22:00 PM [facility] Outpatient Attender: GREGORY Macdonald/Carol/Javier/Reinkarina 06/24/2021 09:30:00 AM EDT [facility] ([facility] Office Visit Attender: Jacque Macdonald/Carol/Javier/ Reinkarina 04/22/2021 10:30:00 AM EDT [facility] ([facility]) Office Visit Attender: Lien Macdonald/Carol/Javier/Edson gray 04/01/2021 01:30:00 PM EDT [facility] ([facility]) Outpatient Attender: VY Juan/Carol/Javier/Reindl 03/29/2021 03:30:00 PM EDT [facility] ([facility] Outpatient Attender: Jacque Macdonald/[place]/Javier/ Reindl 01/07/2021 02:45:00 PM EDT [facility] ([facility]) Outpatient Attender: Lien Macedo RPA Renae/[place]/Javier/R eindl 01/05/2021 11:15:00 AM EDT [facility] ([facility]) Outpatient Attender: VY Juan/[place]/Javier/Reindl 08/25/2020 10:00:00 AM EST [facility] ([facility]) Office Visit Attender: Lien Macdonald/[place]/Javier/R eindl 08/18/2020 09:00:00 AM EDT [facility] ([facility]) Medications Medication Brand Name Start Date [...] TIMES A DAY WITH MEALS SOLD: 10/20/2020 [facility] 5-325 mg 08/11/2020 12:00:00 AM EDT [...] Covered republican ID Covered republican's relationship to dennison Policy [place] Information [place] [id number] SP [id number] C MEDICARE [id number] SP [id number] MEDICARE PART A -O/P [id number] 18 [id number] MEDICAID -O/P [id number] [place] [id number] SP [id number] [place] O [id number] S [id number] MEDICARE C [id number] S [id number] MEDICAID M [id number] S [id number] MEDICAID [id number] SP [id number] MEDICARE [id number] SP [id number] M MEDICAID UNAVAILABLE UNAVAILA BLE MEDICARE C [id number] S [id number] M [id number] M Problems, Conditions, and Diagnoses Code Display Name Description Problem Type Effective Dates Data Source(s) [id number] Disruption of wound, unspecified, initia l encounter Disruption of wound, unspecified, initial encounter Diagnosis 09/20/2021 03:03:00 PM EST C [facility] J449 Chronic obstructive pulmonary disease, u nspecified Chronic obstructive pulmonary disease, unspecified Diagnosis 09/15/2021 02:22:00 PM EST Ca [facility] N18.6 End-stage renal disease End-stage renal disease Proble m 03/29/2021 12:00:00 AM EDT [facility] ([facility] ) R04.2 Hemoptysis Hemoptysis Problem 03/29/2021 12:00:00 AM ED T [facility] ([facility] ) R91.8 Abnormal findings on diagnostic imaging of lung Abnormal findings on diagnostic imaging of lung Problem 08/25/2020 12:00:00 AM EST [facility] ([facility] ) R04.0 Bleeding from nose Bleeding from nose Problem 0 12:00:00 AM EST [facility] ([facility] ) Surgeries/Procedures Procedure Description Date Indications Data Source(s) Removal Of Tunneled Central Venous Catheter W/O Subcutaneous Port 07/13/2021 12:00:00 AM EDT [facility] ([facility] OFFICE OUTPATIENT VISIT 15 MINUTES 06/24/2021 12:00:00 AM EDT [facility] ([facility]) OFFICE OUTPATIENT VISIT 15 MINUTES 03/29/2021 12:00:00 AM EDT [facility] ([facility], ) ARVEN ANAST OPN UPR ARM BASILIC VEIN TRPOS 03/25/2021 12:00:00 AM EDT [facility] ([facility], ) OFFICE OUTPATIENT VISIT 15 MINUTES 01/07/2021 12:00:00 AM EDT [facility] ([facility] ) OFFICE OUTPATIENT VISIT 15 MINUTES 01/05/2021 12:00:00 AM EDT [facility] ([facility] ) Av Fistula Artery-Vein 08/11/2020 12:00:00 AM EDT [facility] ([facility] ) Results ID Date Data Source [id number] 09/27/2021 07:38:00 AM EST [facility] Name Value Range Interpretation Code Description Data Allyssa rce(s) Supporting Document(s) CULTURE WOUND [facility] _CULTURE WOUND_$$[id number]$$[id number]$$[id number]$$[id number] DATE/TIME: 09/26/2021 11:05Culture: CULTURE WOUND Status: FinalAerobic Bacterial Culture: [id number] skin floraHeavy growth Previous result entered on [...] on next page --Patient: STEPH REARDON Order: [id number] Page 2Culture: CULTURE WOUND Status: Final Scant growth Previous result entered on 09/25/2021 10:45 ET Staphylococcus aureusScant growth Previous result entered on 09/24/2021 11:56 ET Microbiological testing to rule out the presence of possible pathogensis in progress. Previous result entered on 09/23/2021 08:37 ET Microbiological testing to rule out the presence of possible pathogensis in progress.Staphylococcus aureus Flag: APatient: STEPH REARDON Order: [id number] Page 3Culture: CULTURE WOUND Status: Final ====ISOLATE 1 Staphylococcus aureus Isolate 1Antibiotic WILBERTO IntUnits ug/mL ----Ciprofloxacin R R . . . . . .185-9Clindamycin S S . . . . . .193-3Erythromycin R R . . . . . .233-7Gentamicin S S . . . . . .267-5Levofloxacin R R . . . . . .77410-8Fxbgcymuh S S . . . . . .36296-7Idpqnbotl R R . . . . . .383-0Penicillin R R . . . . . .6932-8Rifampin S S . . . . . .428-3Tetracycline S S . . . . . .496-0Trimethoprim/Sulfa S S . . . . . .516-5Vancomycin S S . . . . . .524-9P1 Test performed by: [employer] CRUZ #: [id number] [address] [place] [id number] [facility] [id number] Director : Bobby Shore MD NPI #:Hospital Chief Financial Officer : -- Continued on next page --Patient: STEPH REARDON Order: [id number] Page 2Culture: CULTURE WOUND Status: Prelim 09/23/21.1057.XMT.SENT REF 09/24/21.1649.XMT.SENT REF 09/27/21.0738.XMT.SENT REF 09/27/21.38. .to [place] via fax ID Date Data Source [id number] 09/15/2021 03:36:00 PM EST [facility] [address] [place] [address] PHONE: [phone] FAX: [phone] Name .................. : [facility] : [id number] ROOM. ................. : Number ................... : [id number] Stay type ............. : O/P Discharge Date......... ... : 09/15/21 Admit Date ......... : 09/15/21 Admit Phys .................... : TIMBO Mosley Date of ....... : 1940 Family Phys ................... : TIMBO Mosley Phone .................. : [phone] Age ................................ : 80 Film# .................. .:[id number] Sex ................................. : F Unsigned transcriptions are preliminary reports and do not represent a medical or legal document CHEST 2 VIEWS [id number] COMPLETE:09/15/21 14:50 [place] [id number] Reason for Exam: PAIN,SOB 1 DAY FRONTAL [...] Copy for: TIMBO CAVANAUGH Copy for: HEMAL MILANO via fax Copy for: [address] [place] [address] REC Page 1 of 1 Name Value Range Interpretation Code Description Data Allyssa rce(s) Supporting Document(s) ID Date Data Source [id number] 09/15/2021 03:35:00 PM [facility] Name Value Range Interpretation Code Description Data Allyssa rce(s) Supporting Document(s) TROPONIN T 0.07 NG/ML 0.00 - 0.10 [facility] spital TROPONIN T0.1 ng/ml Recommended as the c linical threshold value forTroponin T. ID Date Data Source [id number] 09/15/2021 03:34:00 PM [facility] Name Value Range Interpretation Code Description Data Allyssa rce(s) Supporting Document(s) COMPREHENSIVE METABOLIC PANEL [facility] COMPREHENSIVE METABOLIC PANEL Sodium [Moles/volume] in Serum or Plasma 135 mEq/L 134 - 153 [facility] Potassium [Moles/volume] in Serum or Plasma 5.0 mEq/L 3.6 - 5.0 [facility] Chloride [Moles/volume] in Serum or Plasma 95 mEq/L 98 - 107 L [facility] Carbon dioxide, total [Moles/volume] in Serum or Plasma 25 MEQ/L 22 - 30 [facility] Glucose [Mass/volume] in Serum or Plasma 100 MG/DL 70 - 99 H [facility] BUN 46 MG/DL 7 - 21 H [facility] al Creatinine [Mass/volume] in Serum or Plasma 3.5 MG/DL 0.7 - 1.5 H [facility] BUN/CREAT 13 8 - 27 [facility] Protein [Mass/volume] in Serum or Plasma 5.9 G/DL 6.3 - 8.2 L [facility] Albumin [Mass/volume] in Serum or Plasma 2.8 G/DL 3.9 - 5.0 L [facility] Globulin [Mass/volume] in Serum by calculation 3.1 GM/DL 2.4 - 3.2 [facility] A/G RATIO 0.9 0.8 - 2.0 [facility] Calcium [Mass/volume] in Serum or Plasma 8.8 MG/DL 8.4 - 10.2 [facility] Bilirubin.total [Mass/volume] in Serum or Plasma 0.8 MG/DL 0.2 - 1.3 [facility] Alkaline phosphatase [Enzymatic activity/volume] in Serum or Plasma 119 U/L 38 - 126 [facility] Aspartate aminotransferase [Enzymatic activity/volume] in Serum or Plasma 37 U/L 5 - 40 [facility] Alanine aminotransferase [Enzymatic activity/volume] in Seru m or Plasma 58 U/L 7 - 56 H [facility] Anion gap 3 in Serum or Plasma 15.0 mmol/L 8.0 - 16.0 [facility] 80 [facility]min [facility] AFR AMER GFR >60 [facility] Male GFR In [...] >32 mL/min Normal ID Date Data Source [id number] 09/15/2021 03:31:00 PM EST [facility] Name Value Range Interpretation Code Description Data Allyssa rce(s) Supporting Document(s) CBC NO DIFF [facility] COMPLETE BLOOD COUNT Leukocytes [#/volume] in Blood by Automated count 16.7 10^3/uL 4.2 - 11.0 H [facility] Erythrocytes [#/volume] in Blood by Automated count 3.26 10^6/uL 4. 20 - 5.40 L [facility] Hemoglobin [Mass/volume] in Blood 9.3 g/dL 12.0 - 16.0 L [facility] Hematocrit [Volume Fraction] of Blood by Automated count 30.9 % 3 7.0 - 47.0 L [facility] Erythrocyte mean corpuscular volume [Entitic volume] by Auto mated count 94.8 fL 81.0 - 101 [facility] Erythrocyte mean corpuscular hemoglobin [Entitic mass] by Automated count 28.5 pg 27.0 - 34.0 [facility] Erythrocyte mean corpuscular hemoglobin concentration [Mass/volume] by Automated count 30.1 g/dL 31.0 - 36.0 L [facility] Erythrocyte distribution width [Ratio] by Automated count 19.7 % 11.5 - 14.5 H [facility] Platelets [#/volume] in Blood by Automated count 195 10^3/uL 150 - 45 0 [facility] Platelet mean volume [Entitic volume] in Blood by Automated count 9.4 fL 7.4 - 10.4 [facility] ID Date Data Source [id number] 08/23/2021 09:45:00 AM EDT [facility] Name Value Range Interpretation Code Description Data Allyssa rce(s) Supporting Document(s) SARS coronavirus 2 RNA [Presence] in Res piratory specimen by JOSHUA with probe detection NEGATIVE [facility] This lab was ordered by [facility] a nd reported by [facility]. ID Date Data Source [id number] 08/19/2021 11:37:00 AM EDT [facility] Name Value Range Interpretation Code Description Data Allyssa rce(s) Supporting Document(s) SARS coronavirus 2 RNA [Presence] in Res piratory specimen by JOSHUA with probe detection NEGATIVE [facility] This lab was ordered by [facility] a nd reported by [facility]. ID Date Data Source [id number] 08/09/2021 09:03:00 AM EDT [facility] Name Value Range Interpretation Code Description Data Allyssa rce(s) Supporting Document(s) SARS coronavirus 2 RNA [Presence] in Res piratory specimen by JOSHUA with probe detection NEGATIVE [facility] This lab was ordered by [facility] a nd reported by [facility]. ID Date Data Source [id number] 03/25/2021 06:37:00 AM EDT [facility] Name Value Range Interpretation Code Description Data Allyssa rce(s) Supporting Document(s) Potassium [Moles/volume] in Serum or Plasma 4.2 meq/L 3.5- 5.1 Normal (applies to non-numeric results) [facility] By: SANIR Time: 621 By: SANIR Time: 621 ID Date Data Source [id number] 03/20/2021 10:40:00 AM EDT [facility] Name Value Range Interpretation Code Description Data Allyssa rce(s) Supporting Document(s) SARS-CoV-2 (COVID-19) RNA [Presence] in Respiratory specimen by JOSHUA with probe detection Not Detected [facility] This lab was ordered by [facility] and reported by [facility]. ID Date Data Source [id number] 08/11/2020 10:32:00 AM EDT [facility] Name Value Range Interpretation Code Description Data Allyssa rce(s) Supporting Document(s) Glucose, Fasting 108 mg/dL 70-100 Above high normal [facility] Blood Urea Nitrogen 57 mg/dL 7-18 Above high normal [facility] ([facility]) Glomerular Filtration Rate 9.3 Below low normal [facility] ([facility]) <content>Units are mL/min/1.73 m2</content>
<content></content>
<content>Chronic Kidney Disease Staging per NKF:</content>
<content></content>
<content>Stage I & II GFR >=60 Normal to Mildly Decreased</content>
<content>Stage III GFR 30- 59 Moderately Decreased</content>
<content>Stage IV GFR 15-29 Severely Decreased</content>
<content>Stage V GFR <15 Very Little GFR Left</content>
<content>ESRD GFR <15 on ROVING SIZER</content>
<content></content> Sodium Level 140 meq/L 136-145 Normal (applies to non-numeric res ults) [facility] ([facility]) Creatinine For GFR 4.84 mg/dL 0.55-1.30 Above high normal [facility] ([facility]) Carbon Dioxide Level 24 meq/L 21-32 Normal (applies to non-num sylvester results) [facility] ([facility]) Potassium Serum 4.9 meq/L 3.5-5.1 Normal (applies to non-numeric results) [facility] ([facility]) Chloride Level 108 meq/L 98-107 Above high normal [facility] ([facility]) Calcium Level 7.8 mg/dL 8.8-10.2 Below low normal [facility] ([facility]) Anion Gap 8 meq/L 8-16 Normal (applies to non-numeric resul ts) [facility] ([facility]) ID Date Data Source [id number] 08/11/2020 10:32:00 AM EDT [facility] ([facility]) Name Value Range Interpretation Code Description Data Allyssa rce(s) Supporting Document(s) Potassium [Moles/volume] in Serum or Plasma 4.9 meq/L 3.5- 5.1 Normal (applies to non-numeric results) [facility] ([facility] ) ID Date Data Source [id number] 08/06/2020 10:00:00 AM EDT [facility] Name Value Range Interpretation Code Description Data Allyssa rce(s) Supporting Document(s) SARS coronavirus 2 RNA [facility] This lab [facility] and reported by [facility]. Procedure Social History Code Duration Value Status Description Data Source(s ) Smoking 04/01/2021 12:00:00 AM EDT Patient has never smoked co mpleted Patient has never smoked [facility] Vital Signs ID Date Data Source UNK Name Value Range Interpretation Code Description Data Source(s) Systolic blood pressure 138 mm[Hg] 138 mm[Hg] M [facility]) Body temperature 98.2 [degF] 98.2 [degF] [facility] ([facility]) Diastolic blood pressure 68 mm[Hg] 68 mm[Hg] [facility] ([facility]) Body weight 45.814 kg 45.814 kg [facility] ([facility]) Body surface area Derived from formula 1.48 m2 1.48 m2 [facility] ([facility]) Body height 65 [in_i] 65 [in_i] [facility] ([facility]) 5'5" Body weight 101.00 [lb_av] 101.00 [lb_av] [facility] ([facility]) Body mass index (BMI) [Ratio] 16.8 kg/m2 16.8 k g/m2 [facility] ([facility]) [place] body weight 125 [lb_av] 125 [lb_av] [facility] ([facility]) Diastolic blood pressure 70 mm[Hg] 70 mm[Hg] [facility] ([facility]) Heart rate 76 /min 76 /min [facility] ([facility]) Body height 65 [in_i] 65 [in_i] [facility] ([facility]) 5'5" Systolic blood pressure 162 mm[Hg] 162 mm[Hg] [facility] ([facility]) Body weight 102.00 [lb_av] 102.00 [lb_av] [facility] ([facility]) Body mass index (BMI) [Ratio] 17.0 kg/m2 17.0 k g/m2 [facility] ([facility]) [place] body weight 125 [lb_av] 125 [lb_av] [facility] ([facility]) Body weight 46.267 kg 46.267 kg [facility] ([facility]) Body surface area Derived from formula 1.49 m2 1.49 m2 [facility] ([facility]) Body height 65 [in_i] 65 [in_i] [facility] ([facility]) 5'5" Body weight 102.00 [lb_av] 102.00 [lb_av] [facility] ([facility]) Body mass index (BMI) [Ratio] 17.0 kg/m2 17.0 k g/m2 [facility] [place] body weight 125 [lb_av] 125 [lb_av] [facility] ([facility]) Body weight 46.267 kg 46.267 kg [facility] Body surface area Derived from formula 1.49 m2 1.49 m2 [facility] ([facility]) Diastolic blood pressure 71 mm[Hg] 71 mm[Hg] [facility] Body weight 105.38 [lb_av] 105.38 [lb_av] [facility] ([facility]) Body mass index (BMI) [Ratio] 17.5 kg/m2 17.5 k g/m2 [facility] ([facility]) Systolic blood pressure 157 mm[Hg] 157 mm[Hg] [facility] ([facility]) Body height 65 [in_i] 65 [in_i] [facility] ([facility]) 5'5" [place] body weight 125 [lb_av] 125 [lb_av] [facility] ([facility]) Body weight 47.798 kg 47.798 kg [facility] Body surface area Derived from formula 1.51 m2 1.51 m2 [facility] ([facility]) Body mass index (BMI) [Ratio] 18.5 kg/m2 18.5 k g/m2 [facility] ([facility]) [place] body weight 125 [lb_av] 125 [lb_av] [facility] ([facility]) Heart rate 65 /min 65 /min [facility] ([facility]) Oxygen saturation in Arterial blood by Pulse oximetry 94 % 94 % [facility] ([facility]) Body temperature 99.0 [degF] 99.0 [degF] [facility] ([facility]) Body weight 50.406 kg 50.406 kg [facility] ([facility]) Body surface area Derived from formula 1.54 m2 1.54 m2 [facility] ([facility]) Body height 65 [in_i] 65 [in_i] [facility] ([facility]) 5'5" Body weight 111.12 [lb_av] 111.12 [lb_av] [facility] ([facility]) Systolic blood pressure 102 mm[Hg] 102 mm[Hg] [facility] ([facility]) Diastolic blood pressure 70 mm[Hg] 70 mm[Hg] [facility] ([facility]) Body weight 112.00 [lb_av] 112.00 [lb_av] [facility] ([facility]) Body height 65 [in_i] 65 [in_i] [facility] ([facility]) 5'5" Body mass index (BMI) [Ratio] 18.6 kg/m2 18.6 k g/m2 [facility] ([facility]) [place] body weight 125 [lb_av] 125 [lb_av] [facility] ([facility]) Body weight 50.803 kg 50.803 kg [facility] ([facility]) Body surface area Derived from formula 1.55 m2 1.55 m2 [facility] ([facility]) Systolic blood pressure 137 mm[Hg] 137 mm[Hg] [facility] Diastolic blood pressure 82 mm[Hg] 82 mm[Hg] [facility] ([facility]) Body height 65 [in_i] 65 [in_i] [facility] ([facility]) 5'5" Body weight 112.12 [lb_av] 112.12 [lb_av] [facility] ([facility]) Body mass index (BMI) [Ratio] 18.7 kg/m2 18.7 k g/m2 [facility] ([facility]) [place] body weight 125 [lb_av] 125 [lb_av] [facility] ([facility]) Body weight 50.860 kg 50.860 kg [facility] ([facility]) Body surface area Derived from formula 1.55 m2 1.55 m2 [facility] ([facility]) Systolic blood pressure 140 mm[Hg] 140 mm[facility]Hg[facility] Diastolic blood pressure 80 mm[Hg] 80 mm[Hg] [facility] ([facility]) Heart rate 80 /min 80 /min [facility] ([facility]) Oxygen saturation in Arterial blood by Pulse oximetry 97 % 97 % [facility] ([facility]) Body temperature 97.1 [degF] 97.1 [degF] [facility] ([facility]) Body height 65 [in_i] 65 [in_i] [facility] ([facility]) 5'5" Body weight 101.00 [lb_av] 101.00 [lb_av] [facility] ([facility]) Body mass index (BMI) [Ratio] 16.8 kg/m2 16.8 k g/m2 [facility] ([facility]) [place] body weight 125 [lb_av] 125 [lb_av] [facility] ([facility]) Body weight 45.814 kg 45.814 kg [facility] ([facility]) Body surface area Derived from formula 1.48 m2 1.48 m2 [facility] ([facility]) Body mass index (BMI) [Ratio] 16.2 kg/m2 16.2 k g/m2 [facility] ([facility]) Body weight 44.226 kg 44.226 kg [facility] ([facility]) Systolic blood pressure 120 mm[Hg] 120 mm[Hg] [facility] ([facility]) Diastolic blood pressure 70 mm[Hg] 70 mm[Hg] [facility] ([facility] ) Body height 65 [in_i] 65 [in_i] [facility] ([facility] [facility] 5'5[facility] Body weight 97.50 [lb_av] 97.50 [lb_av] [facility] ([facility], ) [place] body weight 125 [lb_av] 125 [lb_av] CAT [place] ([facility], )
--- NOTE | 2021-09-27 13:05 | REP ---
INDICATION: sacral wound with pain. COMPARISON: 05/12/2015. TECHNIQUE: AP view pelvis. FINDINGS: The osseous structures are osteopenic. Bowel gas and fecal material limits evaluation of pelvic bones. There is no gross fracture or dislocation, and no definite osseous lesion is seen. There are degenerative changes of the lower lumbar spine, which is curved convex to the left. There are multiple phleboliths in the pelvis. IMPRESSION: No gross osseous abnormality within the limitations described above. <Electronically signed by Rex Manjarrez > 09/27/21 [id number]
[2021-09-27 13:19] LABS: BASO % 0.1 % (0.0-1.0); EOS % 0.3 % (0.0-3.0); HEMATOCRIT 24.6 % (36.0-47.0); HEMOGLOBIN 7.5 g/dl (12.0-15.5); LYMPH % 6.8 % (24.0-44.0); MEAN CORPUSCULAR HEMOGLOBIN 27.7 pg (27.0-33.0); MEAN CORPUSCULAR HGB CONC 30.5 g/dl (32.0-36.5); MEAN CORPUSCULAR VOLUME 90.8 fl (80.0-96.0); MONO # 0.8 10^3/uL (0.0-0.8); MONO % 5.5 % (2.0-8.0); NEUTROPHILS # 12.6 10^3/uL (1.5-8.5); NEUTROPHILS % 84.4 % (36.0-66.0); PLATELET COUNT, AUTOMATED 222 10^3/uL (150-450); RED BLOOD COUNT 2.71 10^6/uL (4.00-5.40)
[2021-09-27 13:33] LABS: RSV AMPLIFICATION NEGATIVE (NEGATIVE)
[2021-09-27 13:43] LABS: ERYTHROCYTE SEDIMENTATION RATE 45 mm/hr (0-30)
[2021-09-27 14:12] LABS: C REACTIVE PROTEIN QUANTITATIV 3.87 MG/DL (0.00-0.30); CALCIUM LEVEL 7.5 MG/DL (8.8-10.2); CREATININE FOR GFR 5.46 MG/DL (0.55-1.30); POTASSIUM SERUM 6.1 MEQ/L (3.5-5.1)
[2021-09-27] MEDS ORDERED: HumuLIN R (REGULAR) INSULIN (NovoLIN R) **100U/ML** PER UNIT IV ONE (14:15)
[2021-09-27] MEDS ORDERED: DEXTROSE 50% 50 ML SYRINGE IV STA (14:15)
[2021-09-27] MEDS ORDERED: CALCIUM GLUCONATE 1,000 MG in D5W MINI-BAG PLUS 100 ML IV ONE (14:15)
[2021-09-27] MEDS ORDERED: SOD POLYSTYRENE SULFONATE SUSP 15 GM/60 ML UD PO ONE (14:30)
[2021-09-27] MEDS ORDERED: LIDOCAINE 1% SDV 5ML VIAL SC PRN (14:45)
[2021-09-27] MEDS ORDERED: SODIUM CHLORIDE 0.9% 1000ML IV PRN (14:45)
[2021-09-27] MEDS ORDERED: PIPERACILLIN/TAZOBACTAM SOD 3.375 GM in D5W MINI-BAG PLUS 50 ML IV SCH (14:55)
[2021-09-27] MEDS ORDERED: MOM 30ML SUSPENSION UDC PO PRN (14:55)
[2021-09-27] MEDS ORDERED: MAALOX 30 ML SUSP *UDC PO PRN (14:55)
--- OUTSIDE RECORDS SUMMARY | 2021-09-27 15:07 | CCD ---
Author Author [facility] Organization [facility] Address Unknown Phone Unavailable Care Team Providers Care Perinatal Instructor Name Role Phone EDOUARDMAO RAMESH Unavailable Unavailable [...] is protected by Article 27-F of the [facility] Public Health law. If you continue you may have access to information: Regarding HIV / AIDS; Provided by facilities licensed or operated by the [facility] Office of Mental Health; or Provided by the [facility] Office for People With Developmental Disabilities. If such information is present, then the following [facility] mandated warning applies: This information [...] law may result in a fine or prison sentence or both. A general authorization for the release of medical or other information is NOT sufficient authorization for further disc losure. Encounters Encounter Providers Location Date Indications Data Source(s ) Outpatient Attender: MAO Farfanant: MAO MEDEIROS 09/23/2021 07:03:22 AM [facility] 09/23/2021 08:03:[address] [facility] Outpatient Attender: MAO Blancassultant: MAO FARIAS 09/20/2021 03:03:00 PM [facility] 09/20/2021 03:13:[address] [facility] Outpatient Attender: MAO Pierceltant: MAO MEDEIROS 09/15/2021 02:22:00 PM [facility] 09/15/2021 03:22:[address] [facility] Outpatient Attender: GREGORY Macdonald/Carol/Javier/Reinkarina 06/24/2021 09:30:00 AM EDT [facility] ([facility]) Office Visit Attender: Jacque Macdonald/Carol/Javier/ Reinkarina 04/22/2021 10:30:00 AM EDT [facility] ([facility]) Office Visit Attender: Lien Macdonald/Carol/Javier/Edson gray 04/01/2021 01:30:00 PM EDT [facility] ([facility]) Outpatient Attender: VY Juan/Carol/Javier/Reindl 03/29/2021 03:30:00 PM EDT [facility] ([facility]) Outpatient Attender: Jacque Macdonald/[place]/Javier/ Reindl 01/07/2021 02:45:00 PM EDT [facility] ([facility]) Outpatient Attender: Lien Macedo RPA Renae/[place]/Javier/R eindl 01/05/2021 11:15:00 AM EDT [facility] ([facility]) Outpatient Attender: VY Juan/[place]/Javier/Reindl 08/25/2020 10:00:00 AM EST [facility] ([facility]) Office Visit Attender: Lien Macdonald/[place]/Javier/R eindl 08/18/2020 09:00:00 AM EDT [facility] ([facility]) Medications Medication Brand Name Start Date Product [...] TABLET BY MOUTH EVERY DAY SOLD: 08/05/2020 [facility] 0.8 mg 08/03/2020 12:00:00 AM EDT [...] type / Coverage type Policy ID Covered constitution party ID Covered constitution party's relationship to dennison Policy [place] Information [place] [id number] SP [id number] C MEDICARE [id number] SP [id number] MEDICARE PART A -O/P [id number] 18 [id number] MEDICAID -O/P [id number] 18 [id number] EMEDNY [id number] SP [id number] NGS MEDICARE [place] O [id number] S [id number] MEDICARE C [id number] S [id number] MEDICAID M [id number] S [id number] MEDICAID [id number] SP [id number] MEDICARE [id number] SP [id number] M MEDICAID UNAVAILABLE UNAVAILA BLE MEDICARE C [id number] S [id number] M [id number] M Problems, Conditions, and Diagnoses Code Display Name Description Problem Type Effective Dates Data Source(s) [id number] Disruption of wound, unspecified, initia l encounter Disruption of wound, unspecified, initial encounter Diagnosis 09/20/2021 03:03:00 PM EST C [facility] J449 Chronic obstructive pulmonary disease, u nspecified Chronic obstructive pulmonary disease, unspecified Diagnosis 09/15/2021 02:22:00 PM EST [facility] N18.6 End-stage renal disease End-stage renal disease Proble m 03/29/2021 12:00:00 AM EDT [facility] ([facility], ) R04.2 Hemoptysis Hemoptysis Problem 03/29/2021 12:00:00 AM ED T [facility] ([facility], ) R91.8 Abnormal findings on diagnostic imaging of lung Abnormal findings on diagnostic imaging of lung Problem 08/25/2020 12:00:00 AM EST [facility] ([facility], ) R04.0 Bleeding from nose Bleeding from nose Problem 0 12:00:00 AM EST [facility] ([facility], ) Surgeries/Procedures Procedure Description Date Indications Data Source(s) Removal Of Tunneled Central Venous Catheter W/O Subcutaneous Port 07/13/2021 12:00:00 AM EDT [facility] ([facility] OFFICE OUTPATIENT VISIT 15 MINUTES 06/24/2021 12:00:00 AM EDT [facility] ([facility]) OFFICE OUTPATIENT VISIT 15 MINUTES 03/29/2021 12:00:00 AM EDT [facility] ([facility], ) ARVEN ANAST OPN UPR ARM BASILIC VEIN TRPOS 03/25/2021 12:00:00 AM EDT [facility] ([facility], ) OFFICE OUTPATIENT VISIT 15 MINUTES 01/07/2021 12:00:00 AM EDT [facility] ([facility], ) OFFICE OUTPATIENT VISIT 15 MINUTES 01/05/2021 12:00:00 AM EDT [facility] ([facility], ) Av Fistula Artery-Vein 08/11/2020 12:00:00 AM EDT [facility] ([facility], ) Results ID Date Data Source [id number] 09/27/2021 07:38:00 AM EST [facility] Name Value Range Interpretation Code Description Data Allyssa rce(s) Supporting Document(s) CULTURE WOUND [facility] _CULTURE WOUND_$$[id number]$$[id number]$$[id number]$$[id number]$$[id number]$$[id number] DATE/TIME: 09/26/2021 11:05Culture: CULTURE WOUND Status: FinalAerobic Bacterial Culture: S2Pgqmi skin floraHeavy growth Previous result entered on [...] on next page --Patient: STEPH REARDON Order: [id number] Page 2Culture: CULTURE WOUND Status: Final Scant growth Previous result entered on 09/25/2021 10:45 ET Staphylococcus aureusScant growth Previous result entered on 09/24/2021 11:56 ET Microbiological testing to rule out the presence of possible pathogensis in progress. Previous result entered on 09/23/2021 08:37 ET Microbiological testing to rule out the presence of possible pathogensis in progress.Staphylococcus aureus Flag: APatient: STEPH REARDON Order: [id number] Page 3Culture: CULTURE WOUND Status: Final ====ISOLATE 1 Staphylococcus aureus Isolate 1Antibiotic WILBERTO IntUnits ug/mL ----Ciprofloxacin R R . . . . . .185-9Clindamycin S S . . . . . .193-3Erythromycin R R . . . . . .233-7Gentamicin S S . . . . . .267-5Levofloxacin R R . . . . . .77960-0Ueqtirsyu S S . . . . . .55213-9Ivpyvbypb R R . . . . . .383-0Penicillin R R . . . . . .6932-8Rifampin S S . . . . . .428-3Tetracycline S S . . . . . .496-0Trimethoprim/Sulfa S S . . . . . .516-5Vancomycin S S . . . . . .524-9P1 Test performed by: [employer] CRUZ #: [id number] [address] [place] [address] [id number] [facility] [id number] Director : Bobby Shore MD NPI #:[email or web address] Outside : -- Continued on next page --Patient: STEPH REARDON Order: [id number] Page 2Culture: CULTURE WOUND Status: Prelim 09/23/21.1057.XMT.SENT REF 09/24/21.1649.XMT.SENT REF 09/27/21.0738.XMT.SENT REF 09/27/21.38. .to COUNTRY [place] via fax ID Date Data Source [id number] 09/15/2021 03:36:00 PM EST [facility] [address] [place] [address] PHONE: [phone] FAX: [phone] Name .................. : [id number] ROOM. ................. : Number ................... : [id number] Stay type ............. : O/P Discharge Date......... ... : 09/15/21 Admit Date ......... : 09/15/21 Admit Phys .................... : TIMBO Mosley Date of ....... : 1940 Family Phys ................... : TIMBO Mosley Phone .................. : [phone] Age ................................ : 80 Film# .................. .:[id number] Sex ................................. : F Unsigned transcriptions are preliminary reports and do not represent a medical or legal document CHEST 2 VIEWS [id number] COMPLETE:09/15/21 14:50 MIRLANDE [address] Reason for Exam: PAIN,SOB 1 DAY FRONTAL [...] Copy for: TIMBO CAVANAUGH Copy for: HEMAL RUSTON via fax Copy for: [address] [place] [address] REC Page 1 of 1 Name Value Range Interpretation Code Description Data Allyssa rce(s) Supporting Document(s) ID Date Data Source [id number] 09/15/2021 03:35:[address] [facility] Name Value Range Interpretation Code Description Data Allyssa rce(s) Supporting Document(s) TROPONIN T 0.07 NG/ML 0.00 - 0.10 [facility]ital TROPONIN T0.1 ng/ml Recommended as the c linical threshold value forTroponin T. ID Date Data Source [id number] 09/15/2021 03:34:[address] [facility] Name Value Range Interpretation Code Description Data Allyssa rce(s) Supporting Document(s) COMPREHENSIVE METABOLIC PANEL [facility] COMPREHENSIVE METABOLIC PANEL Sodium [Moles/volume] in Serum or Plasma 135 mEq/L 134 - 153 [facility] Potassium [Moles/volume] in Serum or Plasma 5.0 mEq/L 3.6 - 5.0 [facility] Chloride [Moles/volume] in Serum or Plasma 95 mEq/L 98 - 107 L [facility] Carbon dioxide, total [Moles/volume] in Serum or Plasma 25 MEQ/L 22 - 30 [facility] Glucose [Mass/volume] in Serum or Plasma 100 MG/DL 70 - 99 H [facility] BUN 46 MG/DL 7 - 21 H [facility] al Creatinine [Mass/volume] in Serum or Plasma 3.5 MG/DL 0.7 - 1.5 H [facility] BUN/CREAT 13 8 - 27 [facility] Protein [Mass/volume] in Serum or Plasma 5.9 G/DL 6.3 - 8.2 L [facility] Albumin [Mass/volume] in Serum or Plasma 2.8 G/DL 3.9 - 5.0 L [facility] Globulin [Mass/volume] in Serum by calculation 3.1 GM/DL 2.4 - 3.2 [facility] A/G RATIO 0.9 0.8 - 2.0 [facility] Calcium [Mass/volume] in Serum or Plasma 8.8 MG/DL 8.4 - 10.2 [facility] Bilirubin.total [Mass/volume] in Serum or Plasma 0.8 MG/DL 0.2 - 1.3 [facility] Alkaline phosphatase [Enzymatic activity/volume] in Serum or Plasma 119 U/L 38 - 126 [facility] Aspartate aminotransferase [Enzymatic activity/volume] in Serum or Plasma 37 U/L 5 - 40 [facility] Alanine aminotransferase [Enzymatic activity/volume] in Seru m or Plasma 58 U/L 7 - 56 H [facility] Anion gap 3 in Serum or Plasma 15.0 mmol/L 8.0 - 16.0 [facility] 80 [facility]/min [facility] AFR AMER GFR >60 [facility] Male GFR In terprentation 20-49 [...] >32 mL/min Normal ID Date Data Source [id number] 09/15/2021 03:31:00 PM EST [facility] Name Value Range Interpretation Code Description Data Allyssa rce(s) Supporting Document(s) CBC NO DIFF [facility] COMPLETE BLOOD COUNT Leukocytes [#/volume] in Blood by Automated count 16.7 10^3/uL 4.2 - 11.0 H [facility] Erythrocytes [#/volume] in Blood by Automated count 3.26 10^6/uL 4. 20 - 5.40 L [facility] Hemoglobin [Mass/volume] in Blood 9.3 g/dL 12.0 - 16.0 L [facility] Hematocrit [Volume Fraction] of Blood by Automated count 30.9 % 3 7.0 - 47.0 L [facility] Erythrocyte mean corpuscular volume [Entitic volume] by Auto mated count 94.8 fL 81.0 - 101 [facility] Erythrocyte mean corpuscular hemoglobin [Entitic mass] by Automated count 28.5 pg 27.0 - 34.0 [facility] Erythrocyte mean corpuscular hemoglobin concentration [Mass/volume] by Automated count 30.1 g/dL 31.0 - 36.0 L [facility] Erythrocyte distribution width [Ratio] by Automated count 19.7 % 11.5 - 14.5 H [facility] Platelets [#/volume] in Blood by Automated count 195 10^3/uL 150 - 45 0 [facility] Platelet mean volume [Entitic volume] in Blood by Automated count 9.4 fL 7.4 - 10.4 [facility] ID Date Data Source [id number] 08/23/2021 09:45:00 AM EDT [facility] Name Value Range Interpretation Code Description Data Allyssa rce(s) Supporting Document(s) SARS coronavirus 2 RNA [Presence] in Res piratory specimen by JOSHUA with probe detection [facility]GATIVE [facility] This [facility] was ordered by [facility] a nd reported by [facility]. ID Date Data Source [id number] 08/19/2021 11:37:00 AM EDT [facility] Name Value Range Interpretation Code Description Data Allyssa rce(s) Supporting Document(s) SARS coronavirus 2 RNA [Presence] in Res piratory specimen by JOSHUA with probe detection NEGATIVE [facility] This lab was ordered by [facility] a nd reported by [facility]. ID Date Data Source [id number] 08/09/2021 09:03:00 AM EDT [facility] Name Value Range Interpretation Code Description Data Allyssa rce(s) Supporting Document(s) SARS coronavirus 2 RNA [Presence] in Res piratory specimen by JOSHUA with probe detection NEGATIVE [facility] This lab was ordered by [facility] a nd reported by [facility]. ID Date Data Source [id number] 03/25/2021 06:37:00 AM EDT [facility] Name Value Range Interpretation Code Description Data Allyssa rce(s) Supporting Document(s) Potassium [Moles/volume] in Serum or Plasma 4.2 meq/L 3.5- 5.1 Normal (applies to non-numeric results) [facility] ([facility], ) By: SANIR Time: 621 By: SANIR Time: 621 ID Date Data Source [id number] 03/20/2021 10:40:00 AM EDT [facility] Name Value Range Interpretation Code Description Data Allyssa rce(s) Supporting Document(s) SARS-CoV-2 (COVID-19) RNA [Presence] in Respiratory specimen by JOSHUA with probe detection Not Detected [facility] This lab was ordered by [facility] and reported by [facility]. ID Date Data Source [id number] 08/11/2020 10:32:00 AM EDT [facility] ([facility]) Name Value Range Interpretation Code Description Data Allyssa rce(s) Supporting Document(s) Glucose, Fasting 108 mg/dL 70-100 Above high normal [facility] Blood Urea Nitrogen 57 mg/dL 7-18 Above high normal [facility] ([facility]) Glomerular Filtration Rate 9.3 Below low normal [facility] ([facility]) <content>Units are mL/min/1.73 m2</content>
<content></content>
<content>Chronic Kidney Disease Staging per NKF:</content>
<content></content>
<content>Stage I & II GFR >=60 Normal to Mildly Decreased</content>
<content>Stage III GFR 30- 59 Moderately Decreased</content>
<content>Stage IV GFR 15-29 Severely Decreased</content>
<content>Stage V GFR <15 Very Little GFR Left</content>
<content>ESRD GFR <15 on HEEL EDGE INKER MACHINE</content>
<content></content> Sodium Level 140 meq/L 136-145 Normal (applies to non-numeric res ults) [facility] ([facility]) Creatinine For GFR 4.84 mg/dL 0.55-1.30 Above high normal [facility] ([facility]) Carbon Dioxide Level 24 meq/L 21-32 Normal (applies to non-num sylvester results) [facility] ([facility]) Potassium Serum 4.9 meq/L 3.5-5.1 Normal (applies to non-numeric results) [facility] ([facility]) Chloride Level 108 meq/L 98-107 Above high normal [facility] ([facility]) Calcium Level 7.8 mg/dL 8.8-10.2 Below low normal [facility] ([facility]) Anion Gap 8 meq/L 8-16 Normal (applies to non-numeric resul ts) [facility] ([facility]) ID Date Data Source [id number] 08/11/2020 10:32:00 AM EDT [facility] ([facility]) Name Value Range Interpretation Code Description Data Allyssa rce(s) Supporting Document(s) Potassium [Moles/volume] in Serum or Plasma 4.9 meq/L 3.5- 5.1 Normal (applies to non-numeric results) [facility] ([facility] ) ID Date Data Source [id number] 08/06/2020 10:00:00 AM EDT [facility] Name Value Range Interpretation Code Description Data Allyssa rce(s) Supporting Document(s) SARS coronavirus 2 RNA [facility] This lab was ordered by [facility] and reported by [facility]. Procedure Social History Code Duration Value Status Description Data Source(s ) Smoking 04/01/2021 12:00:00 AM EDT Patient has never smoked co mpleted Patient has never smoked [facility] ([facility]) Vital Signs ID Date Data Source UNK Name Value Range Interpretation Code Description Data Source(s) Systolic blood pressure 138 mm[Hg] 138 mm[Hg] M [facility] ([facility]) Body weight 45.814 kg 45.814 kg [facility] Body surface area Derived from formula 1.48 m2 1.48 m2 [facility] ([facility]) Body temperature 98.2 [degF] 98.2 [degF] [facility] ([facility]) Diastolic blood pressure 68 mm[Hg] 68 mm[Hg] [facility] ([facility]) Body height 65 [in_i] 65 [in_i] [facility] ([facility]) 5'5" [place] body weight 125 [lb_av] 125 [lb_av] [facility] ([facility]) Body weight 101.00 [lb_av] 101.00 [lb_av] [facility] Body mass index (BMI) [Ratio] 16.8 kg/m2 16.8 k g/m2 [facility] ([facility]) Systolic blood pressure 162 mm[Hg] 162 mm[Hg] [facility] Diastolic blood pressure 70 mm[Hg] 70 mm[Hg] [facility] ([facility]) Body weight 102.00 [lb_av] 102.00 [lb_av] [facility] ([facility]) Body height 65 [in_i] 65 [in_i] [facility] ([facility]) 5'5" Heart rate 76 /min 76 /min [facility] ([facility]) Body mass index (BMI) [Ratio] 17.0 kg/m2 17.0 k g/m2 [facility] ([facility]) Body surface area Derived from formula 1.49 m2 1.49 m2 [facility] ([facility]) Body weight 46.267 kg 46.267 kg [facility] ([facility]) [place] body weight 125 [lb_av] 125 [lb_av] [facility] ([facility]) Body height 65 [in_i] 65 [in_i] [facility] ([facility]) 5'5" Body weight 102.00 [lb_av] 102.00 [lb_av] [facility] ([facility]) Body mass index (BMI) [Ratio] 17.0 kg/m2 17.0 k g/m2 [facility] ([facility]) [place] body weight 125 [lb_av] 125 [lb_av] [facility] ([facility]) Body weight 46.267 kg 46.267 kg [facility] ([facility]) Body surface area Derived from formula 1.49 m2 1.49 m2 [facility] ([facility]) Diastolic blood pressure 71 mm[Hg] 71 mm[Hg] [facility] ([facility]) Body weight 105.38 [lb_av] 105.38 [lb_av] [facility] ([facility]) Body mass index (BMI) [Ratio] 17.5 kg/m2 17.5 k g/m2 [facility] ([facility]) Systolic blood pressure 157 mm[Hg] 157 mm[Hg] M [facility] ([facility]) Body height 65 [in_i] 65 [in_i] [facility] ([facility]) 5'5" [place] body weight 125 [lb_av] 125 [lb_av] [facility] ([facility]) Body weight 47.798 kg 47.798 kg [facility] ([facility]) Body surface area Derived from formula 1.51 m2 1.51 m2 [facility] ([facility]) Heart rate 65 /min 65 /min [facility] ([facility]) Oxygen saturation in Arterial blood by Pulse oximetry 94 % 94 % [facility] ([facility]) Body temperature 99.0 [degF] 99.0 [degF] [facility] ([facility]) Body mass index (BMI) [Ratio] 18.5 kg/m2 18.5 k g/m2 [facility] ([facility]) [place] body weight 125 [lb_av] 125 [lb_av] [facility] ([facility]) Body weight 50.406 kg 50.406 kg [facility] ([facility]) Body surface area Derived from formula 1.54 m2 1.54 m2 [facility] ([facility]) Body height 65 [in_i] 65 [in_i] [facility] ([facility]) 5'5" Body weight 111.12 [lb_av] 111.12 [lb_av] [facility] ([facility]) Systolic blood pressure 102 mm[Hg] 102 mm[Hg] [facility] Diastolic blood pressure 70 mm[Hg] 70 mm[Hg] [facility] ([facility]) Body weight 112.00 [lb_av] 112.00 [lb_av] [facility] ([facility]) Body mass index (BMI) [Ratio] 18.6 kg/m2 18.6 k g/m2 [facility] ([facility]) [place] body weight 125 [lb_av] 125 [lb_av] [facility] ([facility]) Body weight 50.803 kg 50.803 kg [facility] ([facility]) Body height 65 [in_i] 65 [in_i] [facility] ([facility]) 5'5" Body surface area Derived from formula 1.55 m2 1.55 m2 [facility] ([facility]) Systolic blood pressure 137 mm[Hg] 137 mm[Hg] M [facility] ([facility]) Diastolic blood pressure 82 mm[Hg] 82 mm[Hg] [facility] ([facility]) Body height 65 [in_i] 65 [in_i] [facility] 5'5" Body weight 112.12 [lb_av] 112.12 [lb_av] [facility] ([facility]) Body mass index (BMI) [Ratio] 18.7 kg/m2 18.7 k g/m2 [facility] ([facility]) [place] body weight 125 [lb_av] 125 [lb_av] [facility] ([facility]) Body weight 50.860 kg 50.860 kg [facility] ([facility]) Body surface area Derived from formula 1.55 m2 1.55 m2 [facility] ([facility]) Systolic blood pressure 140 mm[Hg] 140 mm[Hg] [facility] Diastolic blood pressure 80 mm[Hg] 80 mm[Hg] [facility] ([facility]) Heart rate 80 /min 80 /min [facility] ([facility]) Oxygen saturation in Arterial blood by Pulse oximetry 97 % 97 % [facility] ([facility]) Body temperature 97.1 [degF] 97.1 [degF] [facility] ([facility]) Body height 65 [in_i] 65 [in_i] [facility] ([facility]) 5'5" Body weight 101.00 [lb_av] 101.00 [lb_av] [facility] ([facility]) Body mass index (BMI) [Ratio] 16.8 kg/m2 16.8 k g/m2 [facility] ([facility]) [place] body weight 125 [lb_av] 125 [lb_av] [facility] ([facility]) Body weight 45.814 kg 45.814 kg [facility] ([facility]) Body surface area Derived from formula 1.48 m2 1.48 m2 [facility] ([facility]) Body mass index (BMI) [Ratio] 16.2 kg/m2 16.2 k g/m2 [facility] ([facility]) Systolic blood pressure 120 mm[Hg] 120 mm[Hg] M [facility] ([facility]) [place] body weight 125 [lb_av] 125 [lb_av] [facility] ([facility]) Diastolic blood pressure 70 mm[Hg] 70 mm[Hg] [facility] ([facility] ) Body weight 97.50 [lb_av] 97.50 [lb_av] [facility] ([facility], ) Body height 65 [in_i] 65 [in_i] [facility] ([facility], ) 5'5" Body weight 44.226 kg 44.226 kg [facility] ([facility], )
[2021-09-27] MEDS ORDERED: MEROPENEM INJ 1 GM in IV 1 EA IV SCH (15:40)
[2021-09-27] MEDS ORDERED: VANCOMYCIN INTERMITTENT/PULSE DOSING BY CLINICAL PHARMACIST PER DOSING PROTOCOL XX SCH (15:40)
--- NOTE | 2021-09-27 15:43 | HPEPDOC ---
[facility] Medical History & Physical Date of Admission Sep 27, 2021 Date of Service: Sep 27, 2021 History and Physical Chief complaint: Presented to the hospital, sent in from [facility] for worsening decubitus ulcer History of present illness: Patient is a 80-year-old female with a PMHx of ESRD on HD (MWF), Paroxysmal A. fib, HTN, Granulomatosis with polyangitis, AOCD, Vitamin D deficiency, who presented to the hospital from [facility] after she was noted to have worsening sacral decubitus ulcer. Based on documentation, patient had a stage II decubitus ulcer on departure to [facility] on 08/25. Today of [facility], patient had an evaluation with wound care Leda Cota. Patient was noted to have evidence of his stage IV decubitus ulcer. A bone biopsy was completed few days prior that revealed evidence of acute osteomyelitis. Patient reports that yesterday she was experiencing 10/10, achy, burning pain currently 0 out of 10. Patient reported chills while at the [facility] but denies any fevers. Patient reported nausea initially that is resolved. She denies any vomiting, abdominal pain, constipation or diarrhea. Patient reports her last bowel movement was yesterday. Patient still makes urine despite being on dialysis and denies any urinary discomfort. Patient denies any chest pain or shortness of breath. She does report a mild cough without any significant expectoration. Patient reports her appetite is poor. Past Medical History: ESRD on HD (MWF) Paroxysmal A. fib (not on anticoagulation) Systolic CHF (50-55%) / Mild non-rheumatic valvular heart disease / Moderate pulmonary HTN HTN Granulomatosis with polyangitis AOCD Vitamin D deficiency Sacral Decubitus Ulcer (initially Stage II; Now Stage IV) Suspected rectal neoplasm / Slow rectal bleed Secondary Hyperparathyroidism Severe protein calorie malnutrition Functional quadriplegia Past Surgical History: PermaCath placement Allergies: See below Medications: See below Family History: - Reviewed and noncontributory Social History: - Denies the use of alcohol, tobacco or illicit drugs - Denies recent travel or sick contacts - Patient is from 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 Review of Systems: 10 point review of systems complete, all negative otherwise stated in HPI Physical exam: - Vitals: BP [119/66], HR [89], RR [18], Sat [93%RA], Temp [97.0F] - General: Lying in bed, Speaking in full sentences, AAOx3 - HEENT: NC, AT, PERRLA - CVS: RRR, +S1S2, - Murmurs / rubs / gallops - Lungs: Fair air entry bilaterally, No appreciable wheezing / rales / rhonchi - Abdomen: Soft, Non-distended, Non-tender - Sacrum: 4-5inchs in diameters, packing in place, no foul odor noted, mild erythema around edges, no significant drainage - Extremities: No lower extremity edema, No calf tenderness - Neuro: No focal motor or sensory deficit - Skin: No visible rashes Labs: See below Imaging: See below EKG: See below Assessment and Plan: Sacral Decubitus Ulcer (Stage IV) - Patient was discharged to [place] [facility] 08/27 with stage II ulcer has returned with stage IV ulcer - Patient is hemodynamically stable and afebrile - Physical reveals 4-5 inch diameter ulceration that is packed without any foul odor or significant amount of drainage - Leukocytosis with neutrophil predominance - Will check blood cultures / wound cultures / procalcitonin / lactic acid / ESR / CRP - Consulted and discussed case with Dr. Box; appreciate their input - Will start Vancomycin and Zosyn (Day #1) Hyperkalemia - EKG reviewed without changes noted - s/p Insulin / Glucose / Calcium carbonate in the ER - Discussed with Nephrology with be dialyzed today ESRD on HD (MWF) - Nephrology has been called on consultation; patient will be dialyzed today Paroxysmal A. fib - c/w Metoprolol - Currently not on anticoagulation; will defer to outpatient provider Systolic CHF (50-55%) / Mild non-rheumatic valvular heart disease / Moderate pulmonary HTN - No evidence of exacerbation - Will hold Furosemide at this time HTN - BP well controlled - Will hold Furosemide for now - c/w Amlodipine / Metoprolol with hold parameters Granulomatosis with polyangitis - c/w Prednisone AOCD - Hg appears to be lower than baseline - Consented patient for transfusion - Will order 1 unit PRBC Vitamin D deficiency Suspected rectal neoplasm / Slow rectal bleed - Prior imaging had revealed thickening of rectal wall - Patient was advised to follow up with PCP / GI as an outpatient Secondary Hyperparathyroidism Severe protein calorie malnutrition - BMI of 18.2 - Complicating medical care Functional quadriplegia - Complicating medical care GERD - c/w Omeprazole DVT prophylaxis - Will start Heparin SQ Disposition: - Will admit to inpatient status for minimum to midnight stay Vital Signs Vital Signs Date Time Temp Pulse Resp B/P (MAP) Pulse Ox O2 Delivery O2 Flow Rate FiO2 09/27/21 15:06 97.0 89 18 119/66 (83) 93 Room Air Laboratory Data Labs 24H Laboratory Tests 2 09/27/21 12:15: Immature Granulocyte % (Auto) 2.9, Neutrophils (%) (Auto) 84.4H, Lymphocytes (%) (Auto) 6.8L, Monocytes (%) (Auto) 5.5, Eosinophils (%) (Auto) 0.3, Basophils (%) (Auto) 0.1, Neutrophils # (Auto) 12.6H, Lymphocytes # (Auto) 1.0L, Monocytes # (Auto) 0.8, Eosinophils # (Auto) 0.0, Basophils # (Auto) 0.0, Nucleated Red Blood Cells % (auto) 0.1H, Erythrocyte Sedimentation Rate 45H, Anion Gap 11, Glomerular Filtration Rate 8.0L, Calcium Level 7.5L, C-Reactive Protein, Quantitative 3.87H 09/27/21 12:44: Coronavirus (COVID-19)(PCR) NEGATIVE, Influenza Type A (RT-PCR) NEGATIVE, Influenza Type B (RT-PCR) NEGATIVE, Respiratory Syncytial Virus (PCR) NEGATIVE CBC/BMP Laboratory Tests 09/27/21 12:15 Microbiology Microbiology 09/27/21 Blood Culture, Received Pending 09/27/21 Blood Culture, Received Pending Home Medications Scheduled Amlodipine Besylate (Amlodipine Besylate) 10 Mg Tablet, 10 MG PO DAILY Collagenase Clostridium Hist. (Santyl) 30 Gm Oint...g., 0 DOSE TOP DAILY Folic Acid/Vit B Complex and C (Candice-Leslie Tablet) 0.8 Mg Tablet, 1 TAB PO DAILY Furosemide (Furosemide) 20 Mg Tablet, 20 MG PO DAILY Methyl Salicylate/Menthol (Muscle Rub Cream) 85 Gm Cream..g., 1 DOSE TOP BID Metoprolol Succinate (Metoprolol Succinate) 100 Mg Tab.er.24h, 100 MG PO DAILY Omeprazole (Omeprazole) 40 Mg Capsule., 20 MG PO DAILY Prednisone (Prednisone) 5 Mg Tablet, 5 MG PO DAILY levoFLOXacin (levoFLOXacin) 750 Mg Tablet, 250 MG PO Q2D Scheduled PRN Acetaminophen (Acetaminophen) 500 Mg Tablet, 500 MG PO BID PRN for PAIN Lorazepam (Ativan) 1 Mg Tablet, 1 MG PO DAILYPRN PRN for anxiety, agitation Please administer before HD. Nitroglycerin (Nitrostat) 0.4 Mg Tab.subl, 0.4 MG SL NITRO PRN for CHEST PAIN Allergies Coded Allergies: Penicillins (Verified Allergy, Intermediate, RASH, 08/07/20) clarithromycin (Verified Allergy, Intermediate, rash, 08/07/20) isotretinoin (Verified Allergy, Mild, 08/07/20) cortisone (Verified Allergy, Unknown, 08/07/20) lisinopril (Verified Allergy, Unknown, 08/07/20) warfarin (Verified Adverse Reaction, Intermediate, HALLUCINATIONS, 03/24/21) JEANETTE PUGA MD Sep 27, 2021 15:43
[2021-09-27] MEDS ORDERED: VITMTA PO (16:20)
[2021-09-27] MEDS ORDERED: ASCO500T PO (16:20)
[2021-09-27] MEDS ORDERED: OMEP-218 PO (16:20)
[2021-09-27] MEDS ORDERED: LACT20EL PO (16:20)
[2021-09-27] MEDS ORDERED: BISA10SU4 PR (16:20)
[2021-09-27] MEDS ORDERED: ZINC220CA PO (16:20)
[2021-09-27] MEDS ORDERED: MUSCCRE9 TOP (16:20)
[2021-09-27] MEDS ORDERED: LORA1TAB4 PO (16:20)
[2021-09-27] MEDS ORDERED: BISA5TAB15 PO (16:20)
[2021-09-27] MEDS ORDERED: HOME MED LIST COMPLETE! XX SCH (16:25)
[2021-09-27 17:00] VITALS: BP 114/65
[2021-09-27 17:15] VITALS: BP 127/64
[2021-09-27 17:45] VITALS: BP 125/67
[2021-09-27 18:00] VITALS: BP 130/75
[2021-09-27] MEDS ORDERED: VANCOMYCIN HCL 1,000 MG, VIAL MATE ADAPTER 1 EACH in NS 250 ML IV ONE (19:00)
[2021-09-27 22:00] VITALS: BP 121/69
--- NOTE | 2021-09-27 22:56 | IPNPDOC ---
Text Note Date of Service The patient was seen on 09/27/21. NOTE Notified patient with sacral wound. Patient seen at bedside with sacral wound + slough coccyx/bone exposure. There is concern for osteomyelitis as noted in H&P and surgery has been consulted. Nursing measuring and documenting details of wound. Given WOCN had seen patient today, we will continue wound care orders to include Vashe application and wet-to-dry dressing to the sacrum as they had noted and further recommendations to come in AM by Surgery and greatly appreciated. VS,Fishbone, I+O VS, Fishbone, I+O Laboratory Tests 09/27/21 12:15 Vital Signs Date Time Temp Pulse Resp B/P (MAP) Pulse Ox O2 Delivery O2 Flow Rate FiO2 09/27/21 21:51 83 96 09/27/21 20:22 20 143/78 (99) Room Air 09/27/21 18:00 97.3 ENZO CUETO NP Sep 27, 2021 22:56
[2021-09-27 23:21] LABS: HEMATOCRIT 30.9 % (36.0-47.0)
[2021-09-27] MEDS: DOCUSATE SODIUM 100MG CAPSULE PO SCH (23:31)
[2021-09-27 23:32] LABS: HEMOGLOBIN 9.5 g/dl (12.0-15.5)
[2021-09-27] MEDS: HEPARIN SOD (PORCINE) 5000UNITS/ML 1ML VIAL/SYRINGE SC SCH (23:46)
[2021-09-27] MEDS: MEROPENEM INJ 500 MG in IV 1 EA IV SCH (23:50)
[2021-09-28] MEDS: HEPARIN SOD (PORCINE) 5000UNITS/ML 1ML VIAL/SYRINGE SC SCH ×3 (05:37→21:43)
[2021-09-28 06:00] VITALS: BP 136/70
[2021-09-28 07:34] LABS: BASO % 0.4 % (0.0-1.0); EOS # 0.1 10^3/uL (0.0-0.5); EOS % 0.4 % (0.0-3.0); HEMATOCRIT 32.3 % (36.0-47.0); HEMOGLOBIN 9.8 g/dl (12.0-15.5); LYMPH # 1.1 10^3/uL (1.5-5.0); LYMPH % 9.8 % (24.0-44.0); MEAN CORPUSCULAR HEMOGLOBIN 27.8 pg (27.0-33.0); MEAN CORPUSCULAR HGB CONC 30.3 g/dl (32.0-36.5); MEAN CORPUSCULAR VOLUME 91.8 fl (80.0-96.0); MONO # 0.6 10^3/uL (0.0-0.8); MONO % 5.7 % (2.0-8.0); NEUTROPHILS % 80.6 % (36.0-66.0); PLATELET COUNT, AUTOMATED 183 10^3/uL (150-450); RED BLOOD COUNT 3.52 10^6/uL (4.00-5.40); WHITE BLOOD COUNT 11.1 10^3/uL (4.0-10.0)
[2021-09-28 07:39] LABS: INR 1.02; PROTHROMBIN TIME 13.8 SECONDS (12.7-14.5)
[2021-09-28 07:40] LABS: PARTIAL THROMBOPLASTIN TIME 31.3 SECONDS (25.9-37.0)
[2021-09-28 07:58] LABS: ALBUMIN 1.7 GM/DL (3.2-5.2); BILIRUBIN,TOTAL 0.8 MG/DL (0.2-1.0); CALCIUM LEVEL 7.6 MG/DL (8.8-10.2); CREATININE FOR GFR 2.86 MG/DL (0.55-1.30); GLOMERULAR FILTRATION RATE 16.9 (>39); POTASSIUM SERUM 4.7 MEQ/L (3.5-5.1)
[2021-09-28] MEDS: DOCUSATE SODIUM 100MG CAPSULE PO SCH ×2 (09:00→21:45)
[2021-09-28] MEDS ORDERED: VANCOMYCIN HCL 500 MG in D5W MINI-BAG PLUS 100 ML IV ONE (10:00)
--- NOTE | 2021-09-28 12:45 | IPN ---
PROGRESS NOTE DATE: 09/28/2021 SUBJECTIVE: Mrs. Ocampo is seen this morning on her bedside. She is laying in the bed on her back. She was dialyzed last evening and she tolerated her dialysis well. She denies any nausea or vomiting. Her appetite is poor and she is not eating much. She has no dyspnea or chest pain. OBJECTIVE: VITAL SIGNS: Temperature is 98 degrees Fahrenheit, heart rate is 84 per minute and respiratory rate is 16 per minute. Blood pressure 136/70 mmHg and oxygen saturation 97% on room air. HEAD: Atraumatic. NECK: Supple. JVD is not abnormally elevated. HEENT: She has no oral thrush or ulcers. HEART: Heart sounds are irregular in rhythm but no pericardial friction rub. LUNGS: Clear to auscultation. ABDOMEN: Soft and nontender. Bowel sounds are normal. BACK: Decubitus ulcer on her sacrum which is covered with a dressing. EXTREMITIES: No cyanosis or clubbing. NEUROLOGIC: She is awake, alert and oriented with baseline mentation with mild dementia. Right arm AV fistula is patent. LABORATORY DATA: Today's labs shows WBC count of 11.1, hemoglobin 9.8 and hematocrit 32.3, platelets are 183,000. Sodium is 140, potassium is 4.7, CO2 27, BUN 38 and creatinine 2.86. Calcium level is 7.6 and albumin 1.7. Random Vancomycin level is 13.8. PROBLEMS: 1. Endstage renal disease. Patient was dialyzed last evening and her next dialysis will be scheduled for tomorrow. At this point there is no emergent need for dialysis today. 2. Hyperkalemia, her potassium level has corrected with dialysis last evening. No other intervention is needed. 3. Protein calorie malnutrition. This is a chronic issue related to poor intake and decubitus ulcer. She is being encouraged to increase her protein intake. 4. Anemia, her anemia improved following transfusion of one unit of packed RBCs. 5. Osteomyelitis of the sacral area. Patient is on Vancomycin and should continue with Vancomycin after each dialysis. Her Vancomycin level is slightly low because she received only 750 mg of Vancomycin and in fact she has been given another dose of 500 mg today. Pharmacy is managing her Vancomycin. She was also given Meropenem which has been stopped.
--- NOTE | 2021-09-28 12:59 | IPNPDOC ---
Text Note Date of Service The patient was seen on 09/28/21. NOTE Subjective: Patient seen and examined at bedside. No acute overnight events reported. Patient voices no new medical complaints this morning. Objective: Vital Signs: reviewed General: NAD, lying comfortably in bed HEENT: NC/AT, EOMI Neck: supple, no masses Chest: lungs CTA B/L Heart: +S1S2, RRR Abd: soft, NT, ND, +BS Ext: no edema, sacrum - 4-5" ulcer, packing in place, mild erythema around edges, no significant drainage Skin: no rashes Neuro: no gross focal deficits Psych: AAOx3 Assessment and Plan: Patient is a 80-year-old female with a PMHx of ESRD on HD (MWF), Paroxysmal A. fib, HTN, Granulomatosis with polyangitis, AOCD, Vitamin D deficiency, who presented to the hospital from [facility] after she was noted to have worsening sacral decubitus ulcer, with 10/10, achy, burning pain, chills but no fevers, nausea initially that is resolved. #Sacral Decubitus Ulcer (Stage IV) - Patient was discharged to [facility] 08/27 with stage II ulcer has returned with stage IV ulcer - Patient is hemodynamically stable and afebrile - Physical reveals 4-5 inch diameter ulceration that is packed without any foul odor or significant amount of drainage - Leukocytosis with neutrophil predominance - check blood cultures / wound cultures - Consulted and discussed case with Dr. Box; appreciate their input - Vancomycin/meropenem (Day #3) #Hyperkalemia - resolved s/p HD - s/p Insulin / Glucose / Calcium carbonate in the ER #ESRD on HD (MWF) - Nephrology has been called on consultation; assistance appreciated #Paroxysmal A. fib - Currently not on anticoagulation; will defer to outpatient provider #Systolic CHF (50-55%) / Mild non-rheumatic valvular heart disease / Moderate pulmonary HTN - No evidence of exacerbation - Will hold Furosemide at this time #HTN - BP well controlled - Will hold Furosemide for now - Amlodipine / Metoprolol on hold #Granulomatosis with polyangitis - c/w Prednisone #AOCD - Hg appears to be lower than baseline - Consented patient for transfusion - s/p 1 unit PRBC #Vitamin D deficiency #Suspected rectal neoplasm / Slow rectal bleed - Prior imaging had revealed thickening of rectal wall - Patient was advised to follow up with PCP / GI as an outpatient #Secondary Hyperparathyroidism #Severe protein calorie malnutrition - BMI of 18.2 - Complicating medical care #Functional quadriplegia - Complicating medical care #GERD - c/w Omeprazole #DVT prophylaxis - heparin VS,Fishbone, I+O VS, Fishbone, I+O Laboratory Tests 09/27/21 23:09 09/28/21 07:10 Vital Signs Date Time Temp Pulse Resp B/P (MAP) Pulse Ox O2 Delivery O2 Flow Rate FiO2 09/28/21 06:00 98.0 84 16 136/70 (92) 97 Room Air I&O- Last 24 Hours up to 6 AM 09/28/21 06:00 Intake Total 450 ml Output Total 1000 ml Balance -550 ml ORIN DUTTON MD Sep 28, 2021 12:59
[2021-09-28 14:00] VITALS: BP 122/67
[2021-09-28] MEDS ORDERED: LIDOCAINE W/EPINEPHRINE 1% 20ML VIAL SC SCH (14:00)
--- NOTE | 2021-09-28 14:14 | CR ---
CONSULTATION DATE: 09/27/2021 REASON FOR CONSULTATION: Hyperkalemia in this lady with end-stage renal disease. HISTORY OF PRESENT ILLNESS: Mrs. Ocampo is a 80-year-old female with known history of end-stage renal disease, on maintenance hemodialysis, history of paroxysmal atrial fibrillation, hypertension, history of polyangiitis, anemia of chronic kidney disease, osteomyelitis and osteoarthritis. She is currently a long term resident with multiorgan problems and failure to thrive at home. She has developed a sacral area decubitus ulcer and was seen by Wound Care yesterday. She was found to have osteomyelitis on her sacrum and she was sent to the emergency room. Here in the emergency room she was found to have a hyperkalemia with potassium level of 6.1. She was due for dialysis today and nephrology consultation was requested. The patient is seen in the emergency room. PAST MEDICAL HISTORY: Significant for: 1. History of granulomatosis with polyangiitis. 2. End-stage renal disease requiring hemodialysis. 3. Paroxysmal atrial fibrillation. 4. Systolic congestive heart failure with mild valvular heart disease and pulmonary hypertension. 5. History of secondary hyperparathyroidism. 6. Severe protein calorie malnutrition. 7. History of functional quadriplegia. 8. Anemia of chronic kidney disease. 9. History of sacral decubitus ulcer with osteomyelitis now. PAST SURGICAL HISTORY: Significant for: 1. Permacath placement. 2. Kidney biopsy years ago. MEDICATIONS: [facility] medications include: 1. Amlodipine 10 mg daily. 2. Multivitamin one tablet daily. 3. Furosemide 20 mg daily. 4. Metoprolol 100 mg daily. 5. Omeprazole 20 mg daily. 6. Prednisone 5 mg daily. 7. Levofloxacin 250 mg every two days. 8. Tylenol as needed for pain. 9. Lorazepam 1 mg PRN for anxiety and agitation. ALLERGIES: PENICILLIN, CORTISONE, LISINOPRIL, WARFARIN AND CLARITHROMYCIN. PERSONAL AND SOCIAL HISTORY: The patient is currently a long term resident. She does not smoke or drink. FAMILY HISTORY: Noncontributory and unremarkable. REVIEW OF SYSTEMS: The patient has mild dementia. However, she is able to answer simple questions. She denies any fever or chills. Ears, nose and throat are unremarkable. Cardiovascular system is significant for systolic congestive heart failure. She is mostly compensated. Respiratory system negative for cough or hemoptysis. GI system significant for malnutrition and poor appetite. She denies any diarrhea or vomiting. system negative for dysuria or hematuria. Musculoskeletal system significant for generalized weakness and osteoarthritis. She has sacral decubitus ulcer and has been mostly bedridden. Endocrine system significant for secondary hyperparathyroidism and no history of diabetes. Hematologic system significant for anemia. Neurological system negative for seizure or stroke. Psychosocial system is negative for depression and anxiety. Skin significant for sacral decubitus ulcer. PHYSICAL EXAMINATION: VITAL SIGNS: Temperature 98 degrees Fahrenheit, heart rate 84 per minute, respiratory rate 16 per minute. Blood pressure 120/70 mmHg, oxygen saturation 95% on room air. HEENT: Head is atraumatic. No oral thrush or ulcers. NECK: Supple. JVD mildly elevated. No thyroid enlargement or carotid bruit. HEART: Sounds are regular with systolic murmur grade 2/6. LUNGS: Slightly diminished breath sounds at bases. ABDOMEN: Soft, nontender and bowel sounds normal. EXTREMITIES: Without cyanosis or clubbing. She has an AV fistula in her right arm. BACK: She has a sacral area decubitus ulcer which is covered with dressing. NEUROLOGICAL: She is at baseline mentation with mild dementia but no focal deficits. LABORATORY DATA: WBC count 15.0, hemoglobin 7.5 and hematocrit 24.6. Platelets 222. Sodium 139, potassium 6.1, CO2 24, BUN 93, creatinine 5.46. Lactic acid level 1.0 and calcium 7.5. C-reactive protein 3.87. PROBLEMS: 1. End-stage renal disease. The patient is due for dialysis and we will dialyze her this evening in view of hyperkalemia. 2. Hyperkalemia, related to end-stage renal disease and possible tissue necrosis due to osteomyelitis and sacral decubitus. This will be corrected with dialysis and will use 2.0 mEq potassium bath for dialysis. 3. Anemia. The patient has significant anemia with ongoing infection. We are going to transfuse her during dialysis and will give her 1 unit of blood today. CBC should be checked again tomorrow. 4. Hypertension. Blood pressure seems reasonably well controlled on current antihypertensive medications and should continue with her chronic medication. 5. Congestive heart failure. Her volume status is reasonably well compensated and will try to remove about 1 liter of fluid with dialysis as tolerated. 6. Protein calorie malnutrition. This is a chronic issue and the patient is encouraged to eat well with increased protein intake. Thank you for involving me in the care of Mrs. Ocampo. I will follow her along with you.
[2021-09-28] MEDS ORDERED: VANCOMYCIN HCL 750 MG, VIAL MATE ADAPTER 1 EACH in NS 250 ML IV SCH (16:00)
[2021-09-28] MEDS: **VANCO AFTER HD** MISC XX SCH (16:00)
[2021-09-28] MEDS: MEROPENEM INJ 500 MG in IV 1 EA IV SCH (21:40)
[2021-09-28 22:00] VITALS: BP 121/68
[2021-09-29] MEDS: HEPARIN SOD (PORCINE) 5000UNITS/ML 1ML VIAL/SYRINGE SC SCH ×3 (05:09→21:56)
[2021-09-29 06:00] VITALS: BP 107/60
[2021-09-29] MEDS ORDERED: LIDOCAINE 1% SDV 5ML VIAL SC PRN (07:35)
[2021-09-29] MEDS ORDERED: SODIUM CHLORIDE 0.9% 1000ML IV PRN (07:35)
[2021-09-29 08:00] LABS: BASO % 0.1 % (0.0-1.0); EOS % 0.2 % (0.0-3.0); HEMATOCRIT 26.1 % (36.0-47.0); HEMOGLOBIN 8.1 g/dl (12.0-15.5); MEAN CORPUSCULAR HEMOGLOBIN 27.7 pg (27.0-33.0); MEAN CORPUSCULAR VOLUME 89.4 fl (80.0-96.0); MONO # 0.7 10^3/uL (0.0-0.8); MONO % 6.2 % (2.0-8.0); NEUTROPHILS # 9.4 10^3/uL (1.5-8.5); NEUTROPHILS % 82.7 % (36.0-66.0); PLATELET COUNT, AUTOMATED 183 10^3/uL (150-450); RED BLOOD COUNT 2.92 10^6/uL (4.00-5.40); WHITE BLOOD COUNT 11.4 10^3/uL (4.0-10.0)
[2021-09-29 08:31] LABS: ALBUMIN 1.3 GM/DL (3.2-5.2); BILIRUBIN,TOTAL 0.5 MG/DL (0.2-1.0); CALCIUM LEVEL 6.9 MG/DL (8.8-10.2); CREATININE FOR GFR 3.79 MG/DL (0.55-1.30); GLOMERULAR FILTRATION RATE 12.2 (>39); POTASSIUM SERUM 4.6 MEQ/L (3.5-5.1); TOTAL PROTEIN 4.6 GM/DL (6.4-8.2)
[2021-09-29] MEDS: DOCUSATE SODIUM 100MG CAPSULE PO SCH ×2 (09:00→21:53)
--- NOTE | 2021-09-29 10:16 | ECGEPIP ---
[facility] - ED Test Date: 2021-09-27 Pat Name: CARON CHOI Department: Room: [place] [address] Gender: Female Criminal Judge: MIGUEL : 1940 Requested By: JOSEFINA Wu Order Number: [id number] Reading MD: Link Barclay Measurements Intervals [place] Rate: 81 P: 66 VT: 150 QRS: 42 QRSD: 80 T: 84 QT: 374 QTc: 434 Interpretive Statements Sinus rhythm with premature atrial complexes Low QRS complex voltage in the limb leads Nonspecific ST-T wave abnormalities Similar to tracing done 08-09-21 Electronically Signed on 09-29-2021 10:16:10 EST by Link Barclay
--- NOTE | 2021-09-29 10:39 | ROOPDOC ---
[facility] Report Of Operation Report of Operation DATE OF PROCEDURE: 09/28/21 PREPROCEDURE DIAGNOSES: stage IV sacral decubiti wound. POSTPROCEDURE DIAGNOSES: same. PROCEDURE PERFORMED: Excisional debridement of sacral decubiti wound. SURGEON: Joshua Box MD, DISCHARGING MACHINE OPERATOR: MD ANESTHESIA: . ESTIMATED BLOOD LOSS: Approximately 5 mL. COMPLICATIONS: . REMARKS: . FINDINGS: SPECIMENS REMOVED: PROCEDURE NOTE: . DESCRIPTION OF PROCEDURE: Patient has a large wound which is relatively clean save for some areas with fibrous leftover on the attachments to the sacral bone which is exposed. It looks also as the coccyx is detached from the tip of the sacral bone. She has more granulation tissue in the lower part. She has a large wound about 7 cm or so vertically with a bridge of about 2 cm of skin and another 3 cm of smaller si zed wound above this transversely that is about 11 cm at its greatest dimension. I excised the bridging skin to expose further the tissues underneath that area. There are some leftover necrotic skin on the edge especially on the left side and I also trimmed to healthy tissue. She has some fibrous attachments that are left over at the surface of the sacrum which is exposed which I debrided with a sharp curette. She has extensive undermining about 3 cm or so mainly because she has a very loose skin and soft tissue from the amount of weight loss that she has had. Hemostasis was insured by placing a temporary packing and local pressure and I then packed the wound with wet-to-dry gauze tracing using Kerlix soaked and saline. Tomorrow the dressing will be changed to wound VAC. JOSHUA BOX MD Sep 29, 2021 10:39
[2021-09-29] MEDS ORDERED: DARBEPOETIN 100 MCG/0.5 ML *DIALYSIS* SYRINGE (J0882) IV SCH (11:15)
--- NOTE | 2021-09-29 12:38 | IPN ---
PROGRESS NOTE DATE: 09/29/2021 SUBJECTIVE: Mrs. Ocampo is seen this morning on her bedside. She had debridement of her sacral wound done yesterday where she is felt to have osteomyelitis in her sacral bone. She has been on intravenous Vancomycin and Meropenem. She is currently afebrile. OBJECTIVE: VITAL SIGNS: Temperature is 97.9 degrees Fahrenheit, heart rate is 88 per minute and respiratory rate is 18 per minute. Blood pressure is 107/60 mmHg and oxygen saturation 94% on room air. HEAD: Atraumatic. She is pale looking but not in any acute distress. NECK: Supple. JVD is not abnormally elevated. HEART: Heart sounds are regular. LUNGS: Clear to auscultation. ABDOMEN: Soft, nontender. Bowel sounds are normal. EXTREMITIES: Without any cyanosis or clubbing. Her sacral wound is covered with a dressing. LABORATORY DATA: Today's labs showed a WBC count of 11.4, hemoglobin 8.1 and hematocrit 26.1. Sodium is 141, potassium is 4.6, BUN 46 and creatinine 3.79. Total protein is 4.6 and albumin 1.3. PROBLEMS: 1. Endstage renal disease. Patient is regularly dialyzed on Monday, Monday and Monday schedule. She was dialyzed on Monday evening and will plan to dialyze her again today. 2. Protein calorie malnutrition. Her albumin level is only 1.3 which is related to a chronic infection with decubitus ulcer and poor oral intake. I have advised the nursing staff to assist with her feeds. Patient is also being encouraged to increase her protein intake. 3. Anemia, her anemia has worsened due to surgery and some blood loss. We will recheck it tomorrow and consider transfusion if needed. At this point, I am going to hold off on transfusion. She will receive Aranesp with hemodialysis. 4. Osteomyelitis of sacral bone. She remains on Vancomycin and Meropenem. Vancomycin has been now stopped and she will continue with Meropenem. 5. Hypertension, blood pressure is very well controlled and in fact somewhat soft now. She is currently not on any antihypertensive medications.
[2021-09-29] MEDS ORDERED: LIDOCAINE 1% MDV 20ML VIAL As Ordered ONE (13:59)
[2021-09-29] MEDS: MEROPENEM INJ 500 MG in IV 1 EA IV SCH (21:52)
[2021-09-29 22:00] VITALS: BP 103/63
[2021-09-30] MEDS: HEPARIN SOD (PORCINE) 5000UNITS/ML 1ML VIAL/SYRINGE SC SCH (05:44)
[2021-09-30 06:00] VITALS: BP 110/68
[2021-09-30 08:21] LABS: BASO % 0.2 % (0.0-1.0); EOS % 0.5 % (0.0-3.0); HEMATOCRIT 24.1 % (36.0-47.0); HEMOGLOBIN 7.3 g/dl (12.0-15.5); LYMPH # 1.1 10^3/uL (1.5-5.0); LYMPH % 12.3 % (24.0-44.0); MEAN CORPUSCULAR HEMOGLOBIN 27.3 pg (27.0-33.0); MEAN CORPUSCULAR HGB CONC 30.3 g/dl (32.0-36.5); MEAN CORPUSCULAR VOLUME 90.3 fl (80.0-96.0); MONO # 0.7 10^3/uL (0.0-0.8); MONO % 7.8 % (2.0-8.0); NEUTROPHILS # 6.7 10^3/uL (1.5-8.5); NEUTROPHILS % 77.7 % (36.0-66.0); PLATELET COUNT, AUTOMATED 175 10^3/uL (150-450); RED BLOOD COUNT 2.67 10^6/uL (4.00-5.40); WHITE BLOOD COUNT 8.7 10^3/uL (4.0-10.0)
[2021-09-30] MEDS: DOCUSATE SODIUM 100MG CAPSULE PO SCH ×2 (08:44→21:00)
[2021-09-30 08:54] LABS: ALBUMIN 1.2 GM/DL (3.2-5.2); BILIRUBIN,TOTAL 0.4 MG/DL (0.2-1.0); CALCIUM LEVEL 7.3 MG/DL (8.8-10.2); CREATININE FOR GFR 2.64 MG/DL (0.55-1.30); GLOMERULAR FILTRATION RATE 18.6 (>39); POTASSIUM SERUM 4.3 MEQ/L (3.5-5.1); TOTAL PROTEIN 4.1 GM/DL (6.4-8.2); VANCOMYCIN RANDOM 19.9 UG/ML
[2021-09-30 09:22] LABS: C REACTIVE PROTEIN QUANTITATIV 6.94 MG/DL (0.00-0.30)
[2021-09-30 10:13] LABS: ERYTHROCYTE SEDIMENTATION RATE 35 mm/hr (0-30)
[2021-09-30] MEDS ORDERED: LORazepam 1 MG TAB PO PRN (11:05)
--- NOTE | 2021-09-30 11:13 | IPNPDOC ---
Text Note Date of Service The patient was seen on 09/30/21. NOTE Subjective: Patient seen and examined at bedside. No acute overnight events reported. Patient voices no new medical complaints this morning. Objective: Vital Signs: reviewed General: NAD, lying comfortably in bed HEENT: NC/AT, EOMI Neck: supple, no masses Chest: lungs CTA B/L Heart: +S1S2, RRR Abd: soft, NT, ND, +BS Ext: no edema, sacrum dressings in place/wound vac in place Skin: no rashes Neuro: no gross focal deficits Psych: AAOx3 Assessment and Plan: Patient is a 80-year-old female with a PMHx of ESRD on HD (MWF), Paroxysmal A. fib, HTN, Granulomatosis with polyangitis, AOCD, Vitamin D deficiency, who presented to the hospital from [place] [facility] after she was noted to have worsening sacral decubitus ulcer, with 10/10, achy, burning pain, chills bu t no fevers, nausea initially that is resolved. #Sacral Decubitus Ulcer (Stage IV) - Patient was discharged to [facility] 08/27 with stage II ulcer has returned with stage IV ulcer - Patient is hemodynamically stable and afebrile - Physical reveals 4-5 inch diameter ulceration that is packed without any foul odor or significant amount of drainage - Leukocytosis with neutrophil predominance - check blood cultures / wound cultures - Consulted and discussed case with Dr. Box; appreciate their input - Vancomycin with HD/meropenem (Day #3) - wound cx pending - ID c/s pending #Hyperkalemia - resolved s/p HD - s/p Insulin / Glucose / Calcium carbonate in the ER #ESRD on HD (MWF) - Nephrology has been called on consultation; assistance appreciated #Paroxysmal A. fib - Currently not on anticoagulation; will defer to outpatient provider #Systolic CHF (50-55%) / Mild non-rheumatic valvular heart disease / Moderate pulmonary HTN - No evidence of exacerbation - Will hold Furosemide at this time #HTN - BP well controlled - Will hold Furosemide for now - Amlodipine / Metoprolol on hold #Granulomatosis with polyangitis - c/w Prednisone #AOCD - H/H low today - will likely transfuse 1 PRBC - Hg appears to be lower than baseline - Consented patient for transfusion - s/p 1 unit PRBC #Vitamin D deficiency #Suspected rectal neoplasm / Slow rectal bleed - Prior imaging had revealed thickening of rectal wall - Patient was advised to follow up with PCP / GI as an outpatient #Secondary Hyperparathyroidism #Severe protein calorie malnutrition - BMI of 18.2 - Complicating medical care #Functional quadriplegia - Complicating medical care #GERD - c/w Omeprazole #DVT prophylaxis - d/c heparin - mechanical for now VS,Fishbone, I+O VS, Fishbone, I+O Laboratory Tests 09/30/21 07:30 Vital Signs Date Time Temp Pulse Resp B/P (MAP) Pulse Ox O2 Delivery O2 Flow Rate FiO2 09/30/21 06:00 98.6 81 17 110/68 (82) 95 Room Air I&O- Last 24 Hours up to 6 AM 09/30/21 06:00 Intake Total 630 ml Output Total 1000 ml Balance -370 ml ORIN DUTTON MD Sep 30, 2021 11:13
--- NOTE | 2021-09-30 11:13 | IPNPDOC ---
Text Note Date of Service The patient was seen on 09/29/21. NOTE Subjective: Patient seen and examined at bedside. No acute overnight events reported. Patient voices no new medical complaints this morning. Objective: Vital Signs: reviewed General: NAD, lying comfortably in bed HEENT: NC/AT, EOMI Neck: supple, no masses Chest: lungs CTA B/L Heart: +S1S2, RRR Abd: soft, NT, ND, +BS Ext: no edema, sacrum - 4-5" ulcer, packing in place, mild erythema around edges, no significant drainage Skin: no rashes Neuro: no gross focal deficits Psych: AAOx3 Assessment and Plan: Patient is a 80-year-old female with a PMHx of ESRD on HD (MWF), Paroxysmal A. fib, HTN, Granulomatosis with polyangitis, AOCD, Vitamin D deficiency, who presented to the hospital from [place] [facility] after she was noted to have worsening sacral decubitus ulcer, with 10/10, achy, burning pain, chills but no fevers, nausea initially that is resolved. #Sacral Decubitus Ulcer (Stage IV) - Patient was discharged to [facility] 08/27 with stage II ulcer has returned with stage IV ulcer - Patient is hemodynamically stable and afebrile - Physical reveals 4-5 inch diameter ulceration that is packed without any foul odor or significant amount of drainage - Leukocytosis with neutrophil predominance - check blood cultures / wound cultures - Consulted and discussed case with Dr. Box; appreciate their input - Vancomycin/meropenem (Day #3) #Hyperkalemia - resolved s/p HD - s/p Insulin / Glucose / Calcium carbonate in the ER #ESRD on HD (MWF) - Nephrology has been called on consultation; assistance appreciated #Paroxysmal A. fib - Currently not on anticoagulation; will defer to outpatient provider #Systolic CHF (50-55%) / Mild non-rheumatic valvular heart disease / Moderate pulmonary HTN - No evidence of exacerbation - Will hold Furosemide at this time #HTN - BP well controlled - Will hold Furosemide for now - Amlodipine / Metoprolol on hold #Granulomatosis with polyangitis - c/w Prednisone #AOCD - Hg appears to be lower than baseline - Consented patient for transfusion - s/p 1 unit PRBC #Vitamin D deficiency #Suspected rectal neoplasm / Slow rectal bleed - Prior imaging had revealed thickening of rectal wall - Patient was advised to follow up with PCP / GI as an outpatient #Secondary Hyperparathyroidism #Severe protein calorie malnutrition - BMI of 18.2 - Complicating medical care #Functional quadriplegia - Complicating medical care #GERD - c/w Omeprazole #DVT prophylaxis - heparin VS,Fishbone, I+O VS, Fishbone, I+O Laboratory Tests 09/30/21 07:30 Vital Signs Date Time Temp Pulse Resp B/P (MAP) Pulse Ox O2 Delivery O2 Flow Rate FiO2 09/30/21 06:00 98.6 81 17 110/68 (82) 95 Room Air I&O- Last 24 Hours up to 6 AM 09/30/21 06:00 Intake Total 630 ml Output Total 1000 ml Balance -370 ml ORIN DUTTON MD Sep 30, 2021 11:13
--- NOTE | 2021-09-30 12:43 | IPN ---
PROGRESS NOTE DATE: 09/30/2021 SUBJECTIVE: Ms. Ocampo is seen this morning on her bedside. She is laying in her bed without any acute distress. She had a Wound-Vac dressing applied to her sacral area decubitus where she had debridement done by Surgery a couple of days ago. She was dialyzed yesterday and she tolerated her dialysis well. She remains afebrile. OBJECTIVE: VITAL SIGNS: Temperature is 98.6 degrees Fahrenheit, heart rate is 80 per minute and respiratory rate is 16 per minute. Blood pressure 110/68 mmHg and oxygen saturation 95% on room air. HEENT: Head is atraumatic. NECK: Supple without JVD or thyroid enlargement. HEART: Heart sounds are regular. LUNGS: Clear to auscultation. ABDOMEN: Soft and nontender. Bowel sounds are normal. EXTREMITIES: Without any cyanosis or clubbing. The sacral area wound is covered with a dressing and a Wound-Vac dressing was in place. NEUROLOGIC: She is awake and at her baseline mentation without any focal deficit. LABORATORY DATA: Today's labs showed a WBC count of 8.7, hemoglobin is 7.3 and hematocrit 24.1. Sodium is 140, potassium is 4.3, CO2 26, BUN 26 and creatinine 2.64. C-reactive protein is 6.94. Albumin is only 1.2. PROBLEMS: 1. Endstage renal disease, patient was dialyzed yesterday and will be scheduled for next dialysis on Monday, October 01. No emergent need for dialysis today. 2. Anemia, she has acute blood loss anemia due to debridement of her wound in the setting of endstage renal disease. Will consider transfusing her one unit of packed RBCs on October 01. 3. Sacral decubitus with osteomyelitis of the sacral area. She had a wound debridement done and is now with Wound-Vac dressing. She remains on Vancomycin after each dialysis. 4. Protein calorie malnutrition. She has been chronically malnourished and I encouraged the patient to increase her protein intake. Her protein calorie malnourishment is also partly related to chronic infection and wounds. It remains to be seen how she does. 5. Hypertension. Blood pressure is very well-controlled at present and no changes in her medications are being made today.
[2021-09-30] MEDS: ASCORBIC ACID 500 MG TAB PO SCH ×2 (13:45→22:31)
[2021-09-30] MEDS: OMEPRAZOLE 20 MG CAP PO SCH (13:45)
[2021-09-30] MEDS: MULTIVITAMINS/MINERALS THERAP 1 TAB PO SCH (13:45)
[2021-09-30 14:00] VITALS: BP 133/76
[2021-09-30] MEDS ORDERED: LIDOCAINE 1% MDV 20ML VIAL As Ordered ONE (15:28)
[2021-09-30 22:00] VITALS: BP 153/78
[2021-09-30] MEDS: MEROPENEM INJ 500 MG in IV 1 EA IV SCH (22:32)
[2021-09-30] MEDS: SODIUM CHLORIDE 0.9% INJ 10 ML SYR IV SCH (22:33)
[2021-10-01] VITALS (15 sets, daily range): BP systolic 127–205; BP diastolic 75–99
[2021-10-01] MEDS: MULTIVITAMINS/MINERALS THERAP 1 TAB PO SCH (06:38)
[2021-10-01] MEDS: ASCORBIC ACID 500 MG TAB PO SCH ×2 (06:39→20:10)
[2021-10-01] MEDS: OMEPRAZOLE 20 MG CAP PO SCH (06:39)
[2021-10-01] MEDS: SODIUM CHLORIDE 0.9% INJ 10 ML SYR IV PRN ×2 (06:40→21:50)
[2021-10-01] MEDS: DOCUSATE SODIUM 100MG CAPSULE PO SCH ×2 (06:41→20:10)
[2021-10-01 06:59] LABS: BASO % 0.2 % (0.0-1.0); EOS # 0.1 10^3/uL (0.0-0.5); EOS % 0.5 % (0.0-3.0); HEMATOCRIT 23.1 % (36.0-47.0); HEMOGLOBIN 7.1 g/dl (12.0-15.5); LYMPH # 1.5 10^3/uL (1.5-5.0); LYMPH % 12.8 % (24.0-44.0); MEAN CORPUSCULAR HEMOGLOBIN 27.6 pg (27.0-33.0); MEAN CORPUSCULAR HGB CONC 30.7 g/dl (32.0-36.5); MEAN CORPUSCULAR VOLUME 89.9 fl (80.0-96.0); MONO # 0.9 10^3/uL (0.0-0.8); MONO % 8.1 % (2.0-8.0); NEUTROPHILS # 8.8 10^3/uL (1.5-8.5); NEUTROPHILS % 77.3 % (36.0-66.0); PLATELET COUNT, AUTOMATED 180 10^3/uL (150-450); RED BLOOD COUNT 2.57 10^6/uL (4.00-5.40); WHITE BLOOD COUNT 11.4 10^3/uL (4.0-10.0)
[2021-10-01 07:32] LABS: ALBUMIN 1.3 GM/DL (3.2-5.2); BILIRUBIN,TOTAL 0.4 MG/DL (0.2-1.0); CALCIUM LEVEL 7.2 MG/DL (8.8-10.2); CREATININE FOR GFR 3.87 MG/DL (0.55-1.30); GLOMERULAR FILTRATION RATE 11.9 (>39); POTASSIUM SERUM 5.1 MEQ/L (3.5-5.1); TOTAL PROTEIN 4.3 GM/DL (6.4-8.2)
[2021-10-01] MEDS ORDERED: SODIUM CHLORIDE 0.9% 1000ML IV PRN (08:00)
[2021-10-01] MEDS ORDERED: VANCOMYCIN HCL 500 MG in D5W MINI-BAG PLUS 100 ML IV ONE (08:00)
[2021-10-01] MEDS ORDERED: LIDOCAINE 1% SDV 5ML VIAL SC PRN (08:00)
[2021-10-01] MEDS: SODIUM CHLORIDE 0.9% INJ 10 ML SYR IV SCH ×2 (11:06→20:57)
--- NOTE | 2021-10-01 15:02 | IPN ---
NEPHROLOGY PROGRESS NOTE DATE: 10/01/2021 SUBJECTIVE: Ms. Ocampo is seen this morning on her bedside. She is lying on her back as usual. She has a sacral decubitus ulcer with osteomyelitis in her sacral bone. She has a wound-VAC dressing. Patient denies any fever or chills. She has no dyspnea or chest pain. Her appetite has been not too great and she does not eat very well. PHYSICAL EXAMINATION: Temperature 98 degrees Fahrenheit, heart rate 105 per minute and respiratory rate 16 per minute. Blood pressure 157/79 mmHg and oxygen saturation 96% on room air. Head: Atraumatic. Neck: Supple and JVD not abnormally elevated. Heart: Sounds are tachycardic. Lungs: With slightly diminished breath sounds at bases. Abdomen: Soft and nontender and bowel sounds are normal. Extremities: Without any cyanosis or clubbing. Right arm AV fistula is patent. She has more edema on the left leg and minimal edema on the right leg. Neurologically: She is at her baseline mentation. LABORATORY DATA: Today's labs show: WBC count 11.4, hemoglobin 7.1, hematocrit 23.1 and platelets 180. Sodium 139, potassium 5.1, CO2 24, BUN 45, creatinine 3.87. Total protein 4.3 and albumin 1.3. PROBLEMS/PLAN: 1. End-stage renal disease: Patient will be dialyzed this afternoon. She had COVID exposure due to which she will be the last patient to be dialyzed today. 2. Congestive heart failure: She is oxygenating well; however, she does have increased edema particularly on her left leg. She gets hypotensive during dialysis and does not tolerate fluid removal very well. Her albumin level is low which is probably contributing to her peripheral edema. We will try to remove about 1.5 liters of fluid today with dialysis. We will give her albumin 25% 50 mL at the start of dialysis. 3. Anemia: This is related to acute blood loss and infection. She has osteomyelitis due to this ulcer. She will be given 2 units of blood during dialysis. 4. Hypertension: Blood pressure seems slightly high; however, I would not be too aggressive with her anti-hypertensive medications as she frequently gets hypotensive during dialysis. 5. Osteomyelitis in sacrum: She is currently on meropenem and vancomycin has been stopped.
--- NOTE | 2021-10-01 16:24 | REP ---
INDICATION: left leg swelling COMPARISON: None. TECHNIQUE: Real time compression and duplex Doppler interrogation of the left lower extremity deep venous system is performed, including the right common femoral vein.Compression of the left peroneal and posterior tibial veins is performed. FINDINGS: No thrombus is seen in the left common femoral vein. However, there is nonocclusive thrombus throughout the left femoral and popliteal veins.The right common femoral vein demonstrates no thrombus.The calf veins could not be visualized due to soft tissue edema. There is a popliteal cyst measuring 2.5 x 2.0 x 3.6 cm. IMPRESSION: Nonocclusive thrombus in the left femoral and popliteal veins diffusely. <Electronically signed by Rex Manjarrez > 10/01/21 [id number]
--- NOTE | 2021-10-01 17:26 | REP ---
PROCEDURE NAME: PICC LINE INSERTION W/SITERITE CLINICAL INFORMATION: double lumen, intermediate manager antibiotics and blood draws. COMPARISON: None. PROCEDURE DESCRIPTION: The procedure was performed by MARIALUISA Hemphill, under the direct supervision of Dr. Manjarrez. The risks and benefits of the procedure were explained to the patient and an informed consent was obtained both verbally and written. Directly prior to the start of the procedure a formal time-out was completed in the procedure room. The left brachial vein was localized using ultrasound guidance. The skin was prepped and draped in sterile fashion. Four mL of 1% lidocaine 10 mg/mL was used as a local anesthetic. Using ultrasound guidance the left brachial vein was cannulated, and a 0.018 guidewire was inserted and advanced to the level of SVC using fluoroscopic guidance. The needle was removed and a 6 [place] dilator and peel-away sheath was inserted over the guidewire. A 5.5 [place] dual lumen catheter was cut to a length of 42 cm. The dilator was removed and the catheter was inserted over the guidewire with the tip ending at the level of the SVC. The peel-away sheath was removed and the catheter was flushed with heparinized saline as per hospital protocol. The catheter was affixed to the skin and a sterile dressing was applied. The patient tolerated the procedure well and there were no immediate complications. CONCLUSION: PICC line insertion into the left brachial vein. 0.3 minutes of fluoroscopy time was utilized for this procedure. Some fluoroscopic images are performed with last image hold technology. These images require no additional radiation. <Electronically signed by Teresa Roberson > 10/01/21 [id number] <Electronically signed by Rex Manjarrez > 10/01/21 1103
[2021-10-01] MEDS: MEROPENEM INJ 500 MG in IV 1 EA IV SCH (20:56)
[2021-10-01] MEDS ORDERED: BISACODYL 10 MG SUPP PR PRN (22:30)
[2021-10-01] MEDS ORDERED: NITROGLYCERIN 0.4 MG SUBL TABLET SL PRN (22:30)
[2021-10-01] MEDS ORDERED: ANALGESIC BALM CRM 3OZ TOP PRN (22:30)
[2021-10-01] MEDS ORDERED: LACTULOSE 20 GM/30 ML SYRUP UD PO PRN (22:30)
[2021-10-01] MEDS ORDERED: METOPROLOL SUCC (TopROL XL) 100MG *XL* TAB PO ONE (22:30)
[2021-10-02] MEDS: ACETAMINOPHEN TAB 650MG DOSE (2X325MG) PO PRN ×2 (03:27→23:22)
[2021-10-02 06:00] VITALS: BP 116/68
[2021-10-02] MEDS: SODIUM CHLORIDE 0.9% INJ 10 ML SYR IV PRN ×2 (06:01→16:38)
[2021-10-02 06:29] LABS: BASO % 0.3 % (0.0-1.0); EOS # 0.1 10^3/uL (0.0-0.5); EOS % 1.1 % (0.0-3.0); HEMATOCRIT 29.1 % (36.0-47.0); LYMPH # 0.9 10^3/uL (1.5-5.0); LYMPH % 9.5 % (24.0-44.0); MEAN CORPUSCULAR HEMOGLOBIN 28.6 pg (27.0-33.0); MEAN CORPUSCULAR HGB CONC 32.3 g/dl (32.0-36.5); MEAN CORPUSCULAR VOLUME 88.4 fl (80.0-96.0); MONO # 0.8 10^3/uL (0.0-0.8); MONO % 8.9 % (2.0-8.0); NEUTROPHILS # 7.5 10^3/uL (1.5-8.5); NEUTROPHILS % 79.2 % (36.0-66.0); PLATELET COUNT, AUTOMATED 139 10^3/uL (150-450); RED BLOOD COUNT 3.29 10^6/uL (4.00-5.40); WHITE BLOOD COUNT 9.4 10^3/uL (4.0-10.0)
[2021-10-02 06:45] LABS: HEMOGLOBIN 9.4 g/dl (12.0-15.5)
[2021-10-02 06:49] LABS: ALBUMIN 1.3 GM/DL (3.2-5.2); ALT/SGPT 18 U/L (12-78); BILIRUBIN,TOTAL 0.8 MG/DL (0.2-1.0); BLOOD UREA NITROGEN 25 MG/DL (7-18); CALCIUM LEVEL 7.2 MG/DL (8.8-10.2); CARBON DIOXIDE LEVEL 25 MEQ/L (21-32); CHLORIDE LEVEL 107 MEQ/L (98-107); CREATININE FOR GFR 2.29 MG/DL (0.55-1.30); GLOMERULAR FILTRATION RATE 21.9 (>39); GLUCOSE, FASTING 121 MG/DL (70-100); MAGNESIUM LEVEL 1.9 MG/DL (1.8-2.4); POTASSIUM SERUM 3.6 MEQ/L (3.5-5.1); SODIUM LEVEL 141 MEQ/L (136-145); VANCOMYCIN RANDOM 15.4 UG/ML
[2021-10-02] MEDS: DOCUSATE SODIUM 100MG CAPSULE PO SCH (09:00)
[2021-10-02] MEDS ORDERED: FUROSEMIDE 20 MG TAB PO SCH (09:00)
[2021-10-02] MEDS: MULTIVITAMINS/MINERALS THERAP 1 TAB PO SCH (10:24)
[2021-10-02] MEDS: ASCORBIC ACID 500 MG TAB PO SCH ×2 (10:24→21:00)
[2021-10-02] MEDS: OMEPRAZOLE 20 MG CAP PO SCH (10:24)
[2021-10-02] MEDS: METOPROLOL SUCC (TopROL XL) 100MG *XL* TAB PO SCH (10:25)
[2021-10-02] MEDS: SODIUM CHLORIDE 0.9% INJ 10 ML SYR IV SCH ×2 (10:26→21:00)
--- NOTE | 2021-10-02 10:54 | IPN ---
INPATIENT NEPHROLOGY PROGRESS NOTE DATE: 10/02/2021 SUBJECTIVE: Bettye is seen and examined this morning at the bedside. She was dialyzed yesterday with 1 liter of fluid removed. She offers no complaints, no shortness of breath at rest, tells me she has been trying to eat more. She remains very cachectic and frail on visual inspection. She continues with a wound-VAC. She has asymmetric edema more prominent in the left lower extremity and had a venous duplex which shows non-occlusive thrombosis in the left femoral and left popliteal veins. PHYSICAL EXAMINATION: Vital signs: Temperature 98.4, pulse 90, respiratory rate 16, blood pressure 116/68, saturating 94% on room air. Intake yesterday was only 700. Dialysis removed 1 liter. Weight on the bed scale is not recorded. General: Patient is seen awake, alert, oriented times 3, interactive, conversational, cachectic, frail, bitemporal wasting is significant. HEENT: Tongue is moist. Neck: Supple, jugular veins are not elevated. Heart sounds: Regular S1 and S2. Lungs: Clear to auscultation, no crackle or rale. Abdomen: Soft and nontender. Extremities: There is a fistula in the right arm which is patent. There is a PICC line in the left arm. There is edema on the left leg. Patient has known non-occlusive thrombus in the left femoral and popliteal veins. There is no significant edema on the right leg. She moves her extremities on command. Neurologic: She is at her baseline mentation. LABORATORY DATA: Laboratory studies: White count 9.4, hemoglobin 9.4, platelets 139. Sodium 141, potassium 3.6, bicarbonate 25, BUN 25, creatinine 2.2, albumin 1.3. Blood cultures no growth. IMAGING STUDIES: Venous duplex of the legs shows non-occlusive thrombosis of the left femoral and popliteal veins. INPATIENT MEDICATIONS: She continues on: 1. I.V. meropenem. 2. Amlodipine 10 mg by mouth daily I note was started. 3. She is receiving Aranesp with dialysis. 4. I also note she was given a dose of Toprol-XL 100 mg by mouth times 1. The remainder of medications is unchanged as compared to yesterday. PROBLEMS/PLAN: 1. End-stage renal disease: On hemodialysis. Patient has poor intake. She has required minimal fluid removal. She was dialyzed yesterday with 1 liter of fluid exchanged. She is debilitated, frail and cachetic. Continue with gentle dialysis prescription. Next dialysis will be on Monday. 2. Localized edema: Patient has edema in the left lower extremity. She had a venous duplex which shows non-occlusive thrombosis in the left femoral and popliteal veins. She is not suitable for aggressive fluid removal with dialysis. Her edema is secondary to thrombosis. We will continue to gently dialyze her with around 1 liter of fluid removal as tolerated. She also can receive albumin with dialysis to help with blood pressure support and significant hypoalbuminemia. 3. Failure to thrive: Patient's BMI is only 15.9. She is cachetic. She has albumin of only 1.3. She has osteomyelitis in the sacrum. Primary team is managing the antibiotics and I feel her overall prognosis is quite poor. I encouraged her for oral intake as tolerated. 4. Sacral decubitus ulcer stage 4: Managed by the primary team. Blood cultures have been negative. She continues on I.V. antibiotics and wound care and wound-VAC. 5. Hypertension: I note amlodipine and metoprolol were resumed. Close watch on blood pressure and advise holding parameters. 6. Anemia of chronic renal failure: Hemoglobin is 9.4 on the latest labs. She was transfused 3 units of packed red blood cells on this admission. She continues on Aranesp with dialysis as well.
--- NOTE | 2021-10-02 13:12 | IPNPDOC ---
Text Note Date of Service The patient was seen on 10/01/21. NOTE Subjective: Patient seen and examined at bedside. No acute overnight events reported. Patient voices no new medical complaints this morning. Objective: Vital Signs: reviewed General: NAD, lying comfortably in bed HEENT: NC/AT, EOMI Neck: supple, no masses Chest: lungs CTA B/L Heart: +S1S2, RRR Abd: soft, NT, ND, +BS Ext: no edema, sacrum dressings in place/wound vac in place Skin: no rashes Neuro: no gross focal deficits Psych: AAOx3 Assessment and Plan: Patient is a 80-year-old female with a PMHx of ESRD on HD (MWF), Paroxysmal A. fib, HTN, Granulomatosis with polyangitis, AOCD, Vitamin D deficiency, who presented to the hospital from [place] [facility] after she was noted to have worsening sacral decubitus ulcer, with 10/10, achy, burning pain, chills b ut no fevers, nausea initially that is resolved. #Sacral Decubitus Ulcer (Stage IV) - Patient was discharged to [facility] 08/27 with stage II ulcer has returned with stage IV ulcer - Patient is hemodynamically stable and afebrile - Physical reveals 4-5 inch diameter ulceration that is packed without any foul odor or significant amount of drainage - Leukocytosis with neutrophil predominance - check blood cultures / wound cultures - Consulted and discussed case with Dr. Box; appreciate their input - Vancomycin with HD/meropenem (Day #4) - wound cx pending - ID c/s pending #Hyperkalemia - resolved s/p HD - s/p Insulin / Glucose / Calcium carbonate in the ER #ESRD on HD (MWF) - Nephrology has been called on consultation; assistance appreciated #Paroxysmal A. fib - Currently not on anticoagulation; will defer to outpatient provider #Systolic CHF (50-55%) / Mild non-rheumatic valvular heart disease / Moderate pulmonary HTN - No evidence of exacerbation - Will hold Furosemide at this time #HTN - BP well controlled - Will hold Furosemide for now - Amlodipine / Metoprolol on hold #Granulomatosis with polyangitis - c/w Prednisone #AOCD - H/H low today - transfuse 2 PRBC, she is s/p 1 PRBC previously #Vitamin D deficiency #Suspected rectal neoplasm / Slow rectal bleed - Prior imaging had revealed thickening of rectal wall - Patient was advised to follow up with PCP / GI as an outpatient #Secondary Hyperparathyroidism #Severe protein calorie malnutrition - BMI of 15.9 - Complicating medical care #Functional quadriplegia - Complicating medical care #GERD - c/w Omeprazole #DVT prophylaxis - d/c heparin - mechanical for now VS,Fishbone, I+O VS, Fishbone, I+O Laboratory Tests 10/02/21 06:03 Vital Signs Date Time Temp Pulse Resp B/P (MAP) Pulse Ox O2 Delivery O2 Flow Rate FiO2 10/02/21 10:25 96 139/75 10/02/21 06:00 98.4 16 94 Room Air I&O- Last 24 Hours up to 6 AM 10/02/21 06:00 Intake Total 1120.0 ml Output Total 1000 ml Balance 120.0 ml ORIN DUTTON MD Oct 02, 2021 13:12
--- NOTE | 2021-10-02 13:15 | IPNPDOC ---
Text Note Date of Service The patient was seen on 10/02/21. NOTE Subjective: Patient seen and examined at bedside. No acute overnight events reported. Patient voices no new medical complaints this morning. Objective: Vital Signs: reviewed General: NAD, lying comfortably in bed HEENT: NC/AT, EOMI Neck: supple, no masses Chest: lungs CTA B/L Heart: +S1S2, RRR Abd: soft, NT, ND, +BS Ext: no edema, sacrum dressings in place/wound vac in place Skin: no rashes Neuro: no gross focal deficits Psych: AAOx3 Assessment and Plan: Patient is a 80-year-old female with a PMHx of ESRD on HD (MWF), Paroxysmal A. fib, HTN, Granulomatosis with polyangitis, AOCD, Vitamin D deficiency, who presented to the hospital from [place] [facility] after she was noted to have worsening sacral decubitus ulcer, with 10/10, achy, burning pain, chills b ut no fevers, nausea initially that is resolved. #Sacral Decubitus Ulcer (Stage IV) - Patient was discharged to [facility] 08/27 with stage II ulcer has returned with stage IV ulcer - Patient is hemodynamically stable and afebrile - Physical reveals 4-5 inch diameter ulceration that is packed without any foul odor or significant amount of drainage - Leukocytosis with neutrophil predominance - check blood cultures / wound cultures - Consulted and discussed case with Dr. Box; appreciate their input - ID c/s appreciated - previous wound culture noted - d/c meropenem, continue vanco with HD #Hyperkalemia - resolved s/p HD - s/p Insulin / Glucose / Calcium carbonate in the ER #ESRD on HD (MWF) - Nephrology has been called on consultation; assistance appreciated #Paroxysmal A. fib - Currently not on anticoagulation in setting of anemia #Systolic CHF (50-55%) / Mild non-rheumatic valvular heart disease / Moderate pulmonary HTN - No evidence of exacerbation - Will hold Furosemide at this time #HTN - Furosemide on hold - continue Amlodipine / Metoprolol #Granulomatosis with polyangitis #AOCD - s/p 3 PRBC - continue to monitor #Vitamin D deficiency #Suspected rectal neoplasm / Slow rectal bleed - Prior imaging had revealed thickening of rectal wall - Patient was advised to follow up with PCP / GI as an outpatient #Secondary Hyperparathyroidism #Severe protein calorie malnutrition - BMI of 15.9 - Complicating medical care #Functional quadriplegia - Complicating medical care #GERD - c/w Omeprazole #DVT prophylaxis - mechanical Disposition: pending clinical improvement; discussed goals of care with patient, she wishes to continue full code; poor prognosis VS,Fishbone, I+O VS, Fishbone, I+O Laboratory Tests 10/02/21 06:03 Vital Signs Date Time Temp Pulse Resp B/P (MAP) Pulse Ox O2 Delivery O2 Flow Rate FiO2 10/02/21 10:25 96 139/75 10/02/21 06:00 98.4 16 94 Room Air I&O- Last 24 Hours up to 6 AM 10/02/21 06:00 Intake Total 1120.0 ml Output Total 1000 ml Balance 120.0 ml ORIN DUTTON MD Oct 02, 2021 13:15
[2021-10-02 14:00] VITALS: BP 142/74
[2021-10-02] MEDS ORDERED: VANCOMYCIN HCL 500 MG in D5W MINI-BAG PLUS 100 ML IV ONE (15:00)
[2021-10-02] MEDS: **VANCO AFTER HD** MISC XX SCH (15:08)
[2021-10-02 22:00] VITALS: BP 137/74
[2021-10-03 05:45] LABS: BASO % 0.3 % (0.0-1.0); EOS # 0.1 10^3/uL (0.0-0.5); HEMATOCRIT 31.8 % (36.0-47.0); HEMOGLOBIN 10.2 g/dl (12.0-15.5); LYMPH # 1.4 10^3/uL (1.5-5.0); LYMPH % 13.5 % (24.0-44.0); MEAN CORPUSCULAR HEMOGLOBIN 28.6 pg (27.0-33.0); MEAN CORPUSCULAR HGB CONC 32.1 g/dl (32.0-36.5); MEAN CORPUSCULAR VOLUME 89.1 fl (80.0-96.0); MONO # 1.1 10^3/uL (0.0-0.8); MONO % 10.8 % (2.0-8.0); NEUTROPHILS # 7.5 10^3/uL (1.5-8.5); NEUTROPHILS % 73.6 % (36.0-66.0); PLATELET COUNT, AUTOMATED 166 10^3/uL (150-450); RED BLOOD COUNT 3.57 10^6/uL (4.00-5.40); WHITE BLOOD COUNT 10.2 10^3/uL (4.0-10.0)
[2021-10-03 06:00] VITALS: BP 140/73
[2021-10-03 06:27] LABS: ALBUMIN 1.3 GM/DL (3.2-5.2); BILIRUBIN,TOTAL 0.5 MG/DL (0.2-1.0); C REACTIVE PROTEIN QUANTITATIV 7.16 MG/DL (0.00-0.30); CALCIUM LEVEL 7.2 MG/DL (8.8-10.2); CREATININE FOR GFR 3.26 MG/DL (0.55-1.30); GLOMERULAR FILTRATION RATE 14.6 (>39); POTASSIUM SERUM 4.7 MEQ/L (3.5-5.1); TOTAL PROTEIN 4.2 GM/DL (6.4-8.2)
[2021-10-03] MEDS: MULTIVITAMINS/MINERALS THERAP 1 TAB PO SCH (09:53)
[2021-10-03] MEDS: ASCORBIC ACID 500 MG TAB PO SCH ×2 (09:53→20:48)
[2021-10-03] MEDS: METOPROLOL SUCC (TopROL XL) 100MG *XL* TAB PO SCH (09:55)
[2021-10-03] MEDS: OMEPRAZOLE 20 MG CAP PO SCH (09:55)
[2021-10-03] MEDS: SODIUM CHLORIDE 0.9% INJ 10 ML SYR IV SCH ×2 (09:55→20:48)
[2021-10-03 14:28] VITALS: BP 111/64
[2021-10-03] MEDS: **VANCO AFTER HD** MISC XX SCH (15:09)
[2021-10-03] MEDS ORDERED: LIDOCAINE 1% SDV 5ML VIAL SC PRN (18:05)
[2021-10-03] MEDS ORDERED: SODIUM CHLORIDE 0.9% 1000ML IV PRN (18:05)
[2021-10-03 22:00] VITALS: BP 121/72
--- NOTE | 2021-10-03 22:35 | CR ---
CONSULTATION DATE: 10/02/2021 REFERRING PHYSICIAN: Travon Saez MD REASON FOR CONSULTATION: I was asked to consult by Dr. Saez for evaluation of sacral decubitus ulcer with exposed coccyx. HISTORY OF PRESENT ILLNESS: Bettye is a 80-year-old female with a history of end-stage renal disease on hemodialysis, paroxysmal atrial fibrillation and hypertension who presented to [facility] in mid July with a urinary tract infection (UTI) with E. coli. She was treated with antibiotics. The patient had also a sacral decubitus ulcer that was positive by culture with Enterococcus faecalis and Staphylococcus coagulase negative. The ulcer at that time was a stage II and was treated with one week of linezolid. The patient was transferred to [facility] on 08/25 and transferred back to us on 09/27 with worsening decubitus ulcer with a stage IV with exposed coccyx. She had a bone biopsy which was completed by wound surgeon Dr. Paulson on 09/23 at [facility], which had heavy growth of methicillin-resistant Staphylococcus aureus (MRSA) and diphtheroids. Also biopsy confirmed acute osteomyelitis. Since admission, the patient has been on IV vancomycin and meropenem. She was also given stool softeners, Colace and has had soft stools and refusing her Colace. She states she has mild pain in the coccygeal area. She has had some chills, but no fever. No nausea, vomiting or diarrhea. No abdominal pain currently. She is hemodialysis Monday, Monday, Monday, tolerating well. No chest pain or shortness of breath. Her appetite is poor. MEDICAL HISTORY: 1. End-stage renal disease on hemodialysis. 2. Atrial fibrillation, not on anticoagulation. 3. Systolic congestive heart failure with ejection fraction of 50 to 55% and moderate pulmonary hypertension. 4. Essential hypertension. 5. Granulomatosis with polyangiitis involving the lungs. 6. Vitamin D deficiency. 7. Stage IV sacral decubitus ulcer with methicillin-resistant Staphylococcus aureus (MRSA) culture with acute osteomyelitis on biopsy. 8. Rectal bleeding. 9. Hyperparathyroidism. 10.Severe protein calorie malnutrition. 11.Functional quadriplegia, although the patient states she walks with a walker. SURGICAL HISTORY: PermCath placement. FAMILY HISTORY: Non-revealing. SOCIAL HISTORY: Denies alcohol or drug use. Denies recent travel. She was at [facility]. 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 REVIEW OF SYSTEMS: She only complains of mild pain in the sacral area, otherwise does not have any complaints. No nausea, vomiting, no diarrhea, no abdominal pain, fevers or chills. Denies dysuria or hematuria. She had a low grade fever on 09/30 with some chills, but otherwise doing well. ALLERGIES: PENICILLIN, CLARITHROMYCIN, CORTISONE, ACCUTANE, LISINOPRIL, WARFARIN. MEDICATIONS: Meropenem with dialysis 750 mg IV q 24 hours, docusate 100 mg by mouth twice a day. The patient refused milk of magnesia as needed, Tylenol as needed, metoprolol 100 mg by mouth daily, amlodipine 10 mg by mouth daily, nitroglycerine 0.4 mg sublingual as needed, BenGay as needed, lactulose as needed. LABORATORY DATA: White count 9.4, hemoglobin 9.4, hematocrit 29.1, platelets 139, 79% neutrophils, 9% lymphocytes, 8% monocytes. Sodium 141, potassium 3.6, chloride 107, bicarbonate 25, BUN 25, creatinine 2.29, glucose 121, calcium 7.2, magnesium 1.9, AST 18, ALT 18, alkaline phosphatase 61, CRP 6.94. Total protein 4, albumin 1.3. Vancomycin trough 15.4. 09/27 respiratory panel: SARS, influenza, RSV negative. Methicillin-resistant Staphylococcus aureus (MRSA) nasal screen non-detected. Blood cultures two sets on 09/27 negative. Erythrocyte sedimentation rate (ESR) on admission was 45 down to 35. 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 Double lumen left brachial vein. Vascular ultrasound 10/01: Left leg swelling shows no thrombus in the left common femoral vein. However, there is non-occlusive thrombus in the left femoral and popliteal vein. There is a popliteal cyst measuring 2.5 x 3.6 cm. Pelvic x-ray shows no gross osseous abnormality within limitations of the study. There are degenerative changes and osteopenia. PHYSICAL EXAMINATION: Pleasant female, who looks her stated age, in no acute distress. Temperature is 98.4, pulse 90, respirations 16, blood pressure 116/68, O2 saturation 94% on room air, pleasant, smiling in no acute distress. Heart: Normal S1, S2, tachycardiac. No murmurs appreciated. Lungs: Diminished at the bases, no wheezes, rales or rhonchi. Neck is supple with no jugular venous distention (JVD). Head: Atraumatic. Oropharynx is clear. Abdomen: Soft, nontender, no hepatosplenomegaly. No clubbing or cyanosis. Right arm AV fistula. Left arm with a peripherally inserted central catheter (PICC) line. Left leg has +1 pitting edema, trace edema on the right leg. Neurologically, moves arms and legs, but weak. Sacrum: Large decubitus ulcer measuring 12 cm vertically by 9 cm horizontally by 2 cm depth with no surrounding cellulitis. There is some purulent discharge in the inferior aspect of the wound. There is some tunneling about 2 cm between [address] Box did wound VAC change at the bedside with some debridement and a bone biopsy was sent for culture. IMPRESSION: 1. Acute sacral coccygeal osteomyelitis with cultures positive for methicillin-resistant Staphylococcus aureus (MRSA) on 09/23/2021 heavy growth with few diphtheroids done after debridement with biopsy confirming acute osteomyelitis. The patient is afebrile on currently antibiotics. She has had some incontinent stools and refusing Colace. PLAN: 1. Discontinue IV meropenem. There is no need for broad-spectrum coverage since her culture was only positive for heavy growth of methicillin-resistant Staphylococcus aureus (MRSA) and diphtheroids. 2. Discontinue Colace. The patient does not need to be incontinent and soil decubitus ulcer. Continue with wound VAC. 3.Follow up weekly sedimentation rate and C-reactive protein. The patient could be transferred back to [facility] with a wound VAC and IV vancomycin through hemodialysis. I would treat her for 4 to 6 weeks, another option also could be Bactrim after she finishes two weeks of IV vancomycin and she could be switched to Bactrim daily after hemodialysis. KIMBERLY
[2021-10-04] MEDS: ASCORBIC ACID 500 MG TAB PO SCH ×2 (05:14→20:23)
[2021-10-04] MEDS: MULTIVITAMINS/MINERALS THERAP 1 TAB PO SCH (05:14)
[2021-10-04] MEDS: OMEPRAZOLE 20 MG CAP PO SCH (05:16)
[2021-10-04] MEDS: METOPROLOL SUCC (TopROL XL) 100MG *XL* TAB PO SCH (05:17)
[2021-10-04] MEDS: SODIUM CHLORIDE 0.9% INJ 10 ML SYR IV PRN (05:25)
[2021-10-04 05:42] LABS: BASO # 0.1 10^3/uL (0.0-0.2); BASO % 0.7 % (0.0-1.0); EOS # 0.1 10^3/uL (0.0-0.5); EOS % 1.3 % (0.0-3.0); HEMOGLOBIN 9.9 g/dl (12.0-15.5); LYMPH # 1.4 10^3/uL (1.5-5.0); LYMPH % 15.9 % (24.0-44.0); MEAN CORPUSCULAR HEMOGLOBIN 28.4 pg (27.0-33.0); MEAN CORPUSCULAR HGB CONC 31.9 g/dl (32.0-36.5); MEAN CORPUSCULAR VOLUME 88.8 fl (80.0-96.0); MONO % 11.6 % (2.0-8.0); NEUTROPHILS # 5.9 10^3/uL (1.5-8.5); NEUTROPHILS % 69.7 % (36.0-66.0); PLATELET COUNT, AUTOMATED 164 10^3/uL (150-450); RED BLOOD COUNT 3.49 10^6/uL (4.00-5.40); WHITE BLOOD COUNT 8.5 10^3/uL (4.0-10.0)
[2021-10-04 06:00] VITALS: BP 123/70
[2021-10-04 06:13] LABS: ALBUMIN 1.3 GM/DL (3.2-5.2); BILIRUBIN,TOTAL 0.5 MG/DL (0.2-1.0); CALCIUM LEVEL 7.4 MG/DL (8.8-10.2); CREATININE FOR GFR 4.24 MG/DL (0.55-1.30); GLOMERULAR FILTRATION RATE 10.8 (>39); MAGNESIUM LEVEL 2.2 MG/DL (1.8-2.4); POTASSIUM SERUM 5.1 MEQ/L (3.5-5.1); TOTAL PROTEIN 4.3 GM/DL (6.4-8.2)
[2021-10-04] MEDS: SODIUM CHLORIDE 0.9% INJ 10 ML SYR IV SCH ×2 (08:21→20:27)
[2021-10-04 11:19] LABS: HEPATITIS B SURFACE ANTIBODY NEGATIVE (POSITIVE)
[2021-10-04 11:29] LABS: HEPATITIS B SURFACE ANTIGEN NEGATIVE (NEGATIVE)
[2021-10-04 11:57] LABS: HEPATITIS C VIRUS ABY INDEX 0.1 INDEX (<0.8)
[2021-10-04 11:58] LABS: HEPATITIS B CORE ANTIBODY IGM NEGATIVE (NEGATIVE)
--- NOTE | 2021-10-04 12:00 | IPN ---
PROGRESS NOTE DATE: 10/03/2021 SUBJECTIVE: Bettye is seen and examined this evening at the bedside. She offers no new complaints. There are no acute events over the past 24 hours. She denies any shortness of breath. Her blood pressures have been controlled without any low readings. OBJECTIVE: VITAL SIGNS: Temperature is 98.7, pulse is 83, respiratory rate is 118, blood pressure is 121/72, saturating 97% on room air. Weight on the bed scale today is not recorded. GENERAL: Patient is seen lying in bed in no distress. Elderly female. Chronically ill and cachectic appearing, severe bitemporal wasting. HEENT: Tongue is moist. NECK: Neck is supple. Jugular veins are not elevated. HEART: Heart sounds are regular, S1 and S2. LUNGS: Clear to auscultation. No crackles or rales. Her ribs are prominent. ABDOMEN: Soft and nontender. EXTREMITIES: There is a fistula in the right arm which is patent. There is a PICC line in the left arm. There is edema in the left leg. Patient has no non-occlusive thrombus in the left femoral and popliteal veins. There is no significant edema on the right. There is significant muscle wasting and reduced lean muscle mass. She moves her extremities on command. NEUROLOGIC: She is at baseline mentation. She answers simply questions appropriately and is cooperative with physical exam. LABORATORY DATA: White count is 10.2, hemoglobin is 10.2, platelets are 166,000. Sodium is 138, potassium is 4.7, bicarbonate 25, BUN is 42, creatinine 3.2, albumin is 1.3. INPATIENT MEDICATIONS: Reviewed by myself. No changes noted over the past 24 hours. PROBLEMS: 1. Endstage renal disease on hemodialysis on a Monday, Monday and Monday schedule. Patient has poor intake. She has required minimal fluid removal with dialysis. Goal fluid removal with tomorrow's treatment will be one liter as tolerated. She is debilitated, frail and cachectic. Continue with gentle dialysis prescription. Patient wishes to continue with full treatment at this time but her overall prognosis is poor. She has failure to thrive. 2. Localized edema secondary to nonocclusive thrombosis in the left femoral and popliteal veins. She has no other signs of any sort of fluid retention. She is not suitable for aggressive fluid removal with dialysis. Her localized edema is secondary to the thrombosis. I would continue to very gently dialyze this frail lady. 3. Failure to thrive. Patient's BMI is only 15.9. She is cachetic. Albumin is very low at 1.3. She tells me that she does not want to take her Nepro protein supplement. She has osteomyelitis of the sacrum. The primary team is managing the antibiotics. I feel overall her prognosis is quite poor. 4. Hypertension. The patient is currently on amlodipine 10 mg p.o. daily and Metoprolol 100 mg p.o. daily. Her systolics have been 110s to 140. 5. Anemia secondary to iron deficiency and severe inflammatory state. The patient recently had a ferritin greater than 10,000 in July. I would not give her IV iron at this time in view of her infectious issues. She is on Aranesp with dialysis and she can be transfused as needed. She has received 3 units of packed red blood cells on this admission. Most recent hemoglobin is stable at 10.2, up from 7.1 two days ago.
--- NOTE | 2021-10-04 12:48 | IPN ---
PROGRESS NOTE DATE: 10/04/2021 SUBJECTIVE: Ms. Wen is seen and examined this afternoon receiving her hemodialysis treatment. She denies any complaints. Reports that pain is controlled. She continues to have poor oral intake and is having minimal fluid removed with dialysis today. She denies shortness of breath. OBJECTIVE: Vital signs: T-max 100.4 yesterday at 10 p.m., T-current 98.4, pulse 84, respiratory rate 14, blood pressure 123/70, saturating 93% on room air. Intake yesterday was only recorded as 360 mL. There were two incontinent voids and two bowel movements recorded yesterday. General: The patient is seen awake, alert and oriented receiving her dialysis treatment in no distress. She is a very frail and cachetic elderly female with severe bitemporal wasting. Tongue is moist. Neck is supple. Jugular veins are not elevated. Heart sounds are regular. S1, S2. Lungs are clear to auscultation. No crackles or rales. She is comfortable on room air. There are prominent ribs. Abdomen is soft and nontender. There is a fistula present in the right arm, which is currently in use. There is a wound VAC and sacral dressings and the area was not examined. Extremities: There is some mild edema in the left leg. There is no edema in the right leg. There is severe muscle wasting and generalized cachexia. Neurologic: She is oriented times three. LABORATORY DATA: Hemoglobin 9.9, platelets 164, white count 8.5. Sodium 138, potassium 5.1, bicarbonate 22, BUN 53, creatinine 4.2, albumin 1.3 INPATIENT MEDICATIONS: Reviewed by myself and no changes noted over the past 24 hours. She continues on IV vancomycin with dialysis. PROBLEMS: 1. End-stage renal disease on dialysis on a Monday, Monday, Monday schedule. The patient has very poor intake. She is dialyzed with minimal fluid removal. Her electrolytes and volume status are acceptable. Continue gentle dialysis prescription. 2. Anemia secondary to end-stage renal disease and chronic inflammatory state. Recent serum ferritin in July was greater than 10,000. She is suitable for IV iron because of current infectious issues. She continues on Aranesp with dialysis and she can be transfused as needed. She received 3 units of packed red blood cells on this admission. Currently hemoglobin is 9.9. 3. Hypertension. Blood pressures are well controlled on the current regimen of amlodipine and metoprolol . 4. Stage IV sacral decubitus ulcer. Blood cultures have been negative. She continues with wound care managed by surgery, infectious disease and primary team. She is on IV vancomycin. She has significant cachexia and protein calorie malnutrition. Her overall prognosis is quite poor.
[2021-10-04] MEDS: **VANCO AFTER HD** MISC XX SCH (18:10)
[2021-10-04] MEDS: ACETAMINOPHEN TAB 650MG DOSE (2X325MG) PO PRN (20:26)
--- NOTE | 2021-10-04 20:28 | IPN ---
PROGRESS NOTE DATE: 10/04/2021 SUBJECTIVE: Bettye was seen in dialysis. She was irritable, did not want to talk to me, stating that I talk too much. She denies any nausea, vomiting or diarrhea. According to the nurse in dialysis, she stated she was in good spirits and had no complaints. She denied any shortness of breath. OBJECTIVE: Physical examination was obtained as the patient refused to have me examine her. I reviewed physical examination from Dr. Tolentino. LABORATORY DATA: White count 8.5, hemoglobin 9.9, hematocrit 31, platelets 164, 69% neutrophils, 16% lymphocytes, 11% monocytes. Sodium 138, potassium 5.1, chloride 105, bicarbonate 22, BUN 53, creatinine 4.4, glucose 77, calcium 7.4, magnesium 2.2, AST 14, ALT 16. Blood cultures two sets were negative. ASSESSMENT: 1. Methicillin-resistant Staphylococcus aureus (MRSA), acute sacrococcygeal osteomyelitis at the site of a stage IV decubitus ulcer on IV vancomycin. Meropenem was discontinued. Culture was positive at [facility] for methicillin-resistant Staphylococcus aureus (MRSA). 2. End-stage renal disease on hemodialysis. PLAN: The patient will be treated with IV vancomycin for a couple of weeks. She can then be switched to by mouth Bactrim to finish a total of six week course for methicillin-resistant Staphylococcus aureus (MRSA) osteomyelitis. Repeat complete blood count (CBC), sedimentation rate, C-reactive protein tomorrow. The patient will be treated with hemodialysis. Whenever clinically stable, could be transferred back to the [facility].
[2021-10-05 06:46] VITALS: BP 118/66
[2021-10-05 10:17] VITALS: BP 127/68
[2021-10-05] MEDS: MULTIVITAMINS/MINERALS THERAP 1 TAB PO SCH (10:17)
[2021-10-05] MEDS: ASCORBIC ACID 500 MG TAB PO SCH (10:17)
[2021-10-05] MEDS: OMEPRAZOLE 20 MG CAP PO SCH (10:18)
[2021-10-05] MEDS: METOPROLOL SUCC (TopROL XL) 100MG *XL* TAB PO SCH (10:18)
[2021-10-05] MEDS: SODIUM CHLORIDE 0.9% INJ 10 ML SYR IV SCH (10:19)
[2021-10-05] MEDS ORDERED: ELIQ5TAB PO (12:38)
[2021-10-05] MEDS ORDERED: ELIQ2.5T PO (12:42)
--- NOTE | 2021-10-05 12:44 | DS.PDOC ---
Discharge Summary General Date of Admission Sep 27, 2021 at 14:51 Date of Discharge 10/05/21 Discharge Summary PROCEDURES PERFORMED DURING STAY: !11/29/20: Excisional debridement of sacral decubiti wound and wound vac placement. 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 HOSPITAL COURSE:: Patient is a 80-year-old female with a PMHx of ESRD on HD ([facility]), Paroxysmal A. fib, HTN, Granulomatosis with polyangitis, anemia of chronic disease, Vitamin D deficiency, who presented to the hospital from [facility] on 09/27/2021 after she was noted to have worsening sacral decubitus ulcer. Based on documentation, patient had a stage II decubitus ulcer on departure to [facility] on 08/25. Today of [facility], patient had an evaluation with wound care Leda Cota. Patient was noted to have evidence of stage IV decubitus ulcer. A bone biopsy was completed few days prior that revealed evidence of acute osteomyelitis. Culture from the sacral decubiti also grew MRSA so she was diagnosed with MRSA acute sacrococcygeal osteomyelitis. MRSA acute sacrococcygeal osteomyelitis at the site of stage IV decubitus ulcer Continue vancomycin after HD x 3 times a week for 2 weeks then start on Bactrim on 10/19/21 for another 3 weeks. Bactrim DS 1 tab daily adjusted for renal failure.On HD days dosing should be after HD treatment. Total antibiotic therapy is going to be for 6 weeks starting from September 27, 2021 till 11/08/21 Nonocclusive DVT in the left leg Ultrasound shows DVT in the femoral and popliteal veins nonocclusive diffuse. Will start on Eliqis adjusted for age and weight. Give 5 mg bid x 7 days then 2.5 mg bid. ESRD on HD (MWF) Has been getting maintenance HD last treatment was on 10/04/2020 Paroxysmal A. fib c/w Metoprolol Currently not on anticoagulation; will defer to outpatient provider Systolic CHF (50-55%) / Mild non-rheumatic valvular heart disease / Moderate pulmonary HTN No evidence of exacerbation HTN BP well controlled c/w Amlodipine / Metoprolol with hold parameters Granulomatosis with polyangitis c/w Prednisone Anemia of chronic disease. Hemoglobin was lower than target Received 1 unit of PRBC Vitamin D deficiency Continue supplementation Suspected rectal neoplasm / Slow rectal bleed Prior imaging had revealed thickening of rectal wall Patient was advised to follow up with PCP / GI as an outpatient Secondary Hyperparathyroidism Severe protein calorie malnutrition BMI of 15.9, has bitemporal wasting and wasting of small muscles of hands and feet Functional quadriplegia Complicating medical care GERD c/w Omeprazole DISCHARGE MEDICATIONS: Please see below. ALLERGIES: Please see below. PHYSICAL EXAMINATION ON DISCHARGE: VITAL SIGNS: Please see below. General: NAD, lying comfortably in bed HEENT: NC/AT, EOMI Neck: supple, no masses Chest: lungs CTA B/L Heart: +S1S2, RRR Abd: soft, NT, ND, +BS Ext: 2+ bipedal edema, chronic venous stasis dermatitis. Skin: Large decubitus ulcer measuring 12 cm vertically by 9 cm horizontally by 2 cm depth. wound vac in place. Neuro: no gross focal deficits Psych: AAOx3 LABORATORY DATA: Please see below. RADIOLOGY: X-ray pelvis: The osseous structures are osteopenic. Bowel gas and fecal material limits evaluation of pelvic bones. There is no gross fracture or dislocation, and no definite osseous lesion is seen. There are degenerative changes of the lower lumbar spine, which is curved convex to the left. There are multiple phleboliths in the pelvis. IMPRESSION: No gross osseous abnormality within the limitations described above. Doppler of lower extremities no thrombus is seen in the left common femoral vein. However, there is nonocclusive thrombus throughout the left femoral and popliteal veins.The right common femoral vein demonstrates no thrombus.The calf veins could not be visualized due to soft tissue edema. There is a popliteal cyst measuring 2.5 x 2.0 x 3.6 cm. IMPRESSION: Nonocclusive thrombus in the left femoral and popliteal veins diffusely. ACTIVITY: [As tolerated]. DIET: 2 g sodium with Nepro DISCHARGE PLAN: [facility] DISCHARGE INSTRUCTIONS: Check ESR and CRP every week Wound VAC change 3 times a week Vancomycin after hemodialysis 3 times a week for 2-weeks then changed to p.o. antibiotic DISCHARGE CONDITION: [Stable]. TIME SPENT ON DISCHARGE: 40 minutes. Vital Signs/I&Os Vital Signs Date Time Temp Pulse Resp B/P (MAP) Pulse Ox O2 Delivery O2 Flow Rate FiO2 10/05/21 10:17 91 127/68 10/05/21 06:46 98.1 14 92 Room Air I&O- Last 24 Hours up to 6 AM 10/05/21 06:00 Intake Total 170 ml Output Total 1000 ml Balance -830 ml Laboratory Data Labs 24H Laboratory Tests 2 10/04/21 23:44: Coronavirus (COVID-19)(PCR) NEGATIVE 10/05/21 05:53: Erythrocyte Sedimentation Rate 27, C-Reactive Protein, Quantitative 8.66H Microbiology Microbiology 09/27/21 Blood Culture - Final, Complete NO GROWTH AFTER 5 DAYS 09/27/21 Blood Culture - Final, Complete NO GROWTH AFTER 5 DAYS Discharge Medications Scheduled Amlodipine Besylate (Amlodipine Besylate) 10 Mg Tablet, 10 MG PO DAILY, (Reported) Ascorbic Acid (Ascorbic Acid) 500 Mg Tablet, 500 MG PO BID, (Reported) Folic Acid/Vit B Complex and C (Candice-Leslie Tablet) 0.8 Mg Tablet, 1 TAB PO DAILY, (Reported) Furosemide (Furosemide) 20 Mg Tablet, 20 MG PO DAILY, (Reported) Metoprolol Succinate (Metoprolol Succinate) 100 Mg Tab.er.24h, 100 MG PO DAILY, (Reported) Multivitamins (Thera M Plus Tablet) 1 Each Tablet, 1 TAB PO DAILY, (Reported) Omeprazole (Omeprazole) 20 Mg Capsule.dr, 20 MG PO DAILY, (Reported) Prednisone (Prednisone) 5 Mg Tablet, 5 MG PO TID, (Reported) Zinc Sulfate (Zinc Sulfate) 220 Mg Capsule, 220 MG PO DAILY, (Reported) Scheduled PRN Acetaminophen (Acetaminophen) 500 Mg Tablet, 500 MG PO BID PRN for PAIN, (Reported) Bisacodyl (Bisacodyl) 10 Mg Supp.rect, 10 MG [place] DAILY PRN for CONSTIPATION, (Reported) Bisacodyl (Bisacodyl) 5 Mg Tablet.dr, 5 MG PO DAILY PRN for CONSTIPATION, (Reported) Lactulose (Lactulose) 10 Gm/15 Ml Solution, 30 ML PO DAILY PRN for CONSTIPATION, (Reported) Lorazepam (Lorazepam) 1 Mg Tablet, 1 MG PO DAILY PRN for ANXIETY/AGITATION, (Reported) Methyl Salicylate/Menthol (Muscle Rub Cream) 85 Gm Cream..g., 1 APPLIC TOP BID PRN for PAIN LEVEL 1-4, (Reported) APPLY TO LOWER BACK Nitroglycerin (Nitrostat) 0.4 Mg Tab.subl, 0.4 MG SL NITRO PRN for CHEST PAIN, (Reported) Allergies Coded Allergies: Penicillins (Verified Allergy, Intermediate, RASH, 08/07/20) clarithromycin (Verified Allergy, Intermediate, rash, 08/07/20) isotretinoin (Verified Allergy, Mild, 08/07/20) cortisone (Verified Allergy, Unknown, 08/07/20) lisinopril (Verified Allergy, Unknown, 08/07/20) warfarin (Verified Adverse Reaction, Intermediate, HALLUCINATIONS, 03/24/21) Telma Phoenix MD Oct 05, 2021 12:04
== END 2021-10-05 14:05 | DRG 579 ==
LOC: M ED 11:27 → M ED INP 14:51 → OBSVTOIN 14:51 → M MSPAV 22:01
PROVIDERS: ADMIT Internal Medicine; ATTEND Internal Medicine Nephrology
PROC: 5A1D70Z Performance of Urinary Filtration, Intermittent, Less than 6 Hours Per Day (ICD-10-PCS; 2021-09-27)
PROC: 30233N1 Transfusion of Nonautologous Red Blood Cells into Peripheral Vein, Percutaneous Approach (ICD-10-PCS; 2021-09-27)
PROC: 0QB10ZZ Excision of Sacrum, Open Approach (ICD-10-PCS; principal; 2021-09-29)
PROC: 02HV33Z Insertion of Infusion Device into Superior Vena Cava, Percutaneous Approach (ICD-10-PCS; 2021-09-30)
DX: L89.154 Pressure ulcer of sacral region, stage 4 (principal); N18.6 End stage renal disease; E43 Unspecified severe protein-calorie malnutrition; R53.2 Functional quadriplegia; M31.31 Wegener's granulomatosis with renal involvement; I50.22 Chronic systolic (congestive) heart failure; I13.2 Hypertensive heart and chronic kidney disease with heart failure and with stage 5 chronic kidney disease, or end stage renal disease; N25.81 Secondary hyperparathyroidism of renal origin; K62.5 Hemorrhage of anus and rectum; Z68.1 Body mass index [BMI] 19.9 or less, adult; M46.28 Osteomyelitis of vertebra, sacral and sacrococcygeal region; D62 Acute posthemorrhagic anemia; I82.4Z2 Acute embolism and thrombosis of unspecified deep veins of left distal lower extremity; Z99.2 Dependence on renal dialysis; I48.0 Paroxysmal atrial fibrillation; D63.1 Anemia in chronic kidney disease; E55.9 Vitamin D deficiency, unspecified; E87.5 Hyperkalemia; K21.9 Gastro-esophageal reflux disease without esophagitis; Z20.822 Contact with and (suspected) exposure to COVID-19; Z79.899 Other long term (current) drug therapy; Z88.0 Allergy status to penicillin; Z88.1 Allergy status to other antibiotic agents; Z88.8 Allergy status to other drugs, medicaments and biological substances; I27.20 Pulmonary hypertension, unspecified

== ENCOUNTER → 2021-11-09 | Outpatient (REF) | payer MEDICARE, MEDICAID ==
[~2021-11-09] MED LIST changes: +ASCO500T PO; +BACITAB PO; +BISA10SU4 PR; +BISA5TAB15 PO; +DIGO0.123 PO; +DOXY100T PO; +ELIQ2.5T PO; +ELIQ5TAB PO; +ENSU1LIQ50 PO; +JUVE1POW PO; +LACT20EL PO; +LEVO750T14 PO; -LISI10TA15 PO; +LISI10TA24 PO; +LORA1TAB4 PO; +LOSA50TA28 PO; -LOSA50TA88 PO; +OMEP-173 PO; +OMEP40CA4 PO; +ZINC220CA PO
== END ==
LOC: M SFHCWAGY 15:51
PROVIDERS: ATTEND Surgery
DX: L89.154 Pressure ulcer of sacral region, stage 4 (principal); M86.18 Other acute osteomyelitis, other site
CPT/HCPCS: 11044; 11047; 88304; 88311; G0463

== ENCOUNTER → 2021-11-15 | Outpatient (REF) | payer MEDICARE, MEDICAID ==
[2021-11-15 16:41] LABS: HEMATOCRIT 21.6 % (36.0-47.0)
[2021-11-15 16:58] LABS: HEMOGLOBIN 6.5 g/dl (12.0-15.5)
== END ==
LOC: M LAB REF 15:49
PROVIDERS: ATTEND Surgery
DX: L89.154 Pressure ulcer of sacral region, stage 4 (principal)

== ENCOUNTER 2021-11-16 11:57 | Inpatient (IN) | payer MEDICARE, MEDICAID ==
[~2021-11-16] VITALS: Ht 165.1 cm; Wt 45.2 kg
[~2021-11-16 11:57] MED LIST changes: -BACITAB PO; -DIGO0.123 PO; -DOXY100T PO; -ENSU1LIQ50 PO; -JUVE1POW PO
[2021-11-16 12:50] LABS: HEMATOCRIT 24.7 % (36.0-47.0); HEMOGLOBIN 7.5 g/dl (12.0-15.5); MEAN CORPUSCULAR HEMOGLOBIN 28.3 pg (27.0-33.0); MEAN CORPUSCULAR HGB CONC 30.4 g/dl (32.0-36.5); MEAN CORPUSCULAR VOLUME 93.2 fl (80.0-96.0); PLATELET COUNT, AUTOMATED 160 10^3/uL (150-450); RED BLOOD COUNT 2.65 10^6/uL (4.00-5.40); WHITE BLOOD COUNT 6.8 10^3/uL (4.0-10.0)
[2021-11-16 13:01] LABS: INR 0.76
[2021-11-16 13:17] LABS: CREATININE FOR GFR 2.09 MG/DL (0.55-1.30); GLOMERULAR FILTRATION RATE 24.3 (>39); POTASSIUM SERUM 3.9 MEQ/L (3.5-5.1)
[2021-11-16 13:18] LABS: ALBUMIN 2.3 GM/DL (3.2-5.2); BILIRUBIN,TOTAL 0.3 MG/DL (0.2-1.0); CALCIUM LEVEL 8.3 MG/DL (8.8-10.2); TOTAL PROTEIN 5.6 GM/DL (6.4-8.2)
[2021-11-16 14:43] LABS: PERCENT SATURATION 20.7 % (13.2-45.0)
[2021-11-16 15:08] LABS: RSV AMPLIFICATION NEGATIVE (NEGATIVE)
[2021-11-16 16:29] LABS: C REACTIVE PROTEIN QUANTITATIV 0.8 MG/DL (0.00-0.30)
[2021-11-16 17:10] LABS: D-DIMER QUANT 2837.55 ng/ml (<500)
[2021-11-16] MEDS ORDERED: ELIQ2.5T PO (17:15)
[2021-11-16] MEDS ORDERED: HOME MED LIST COMPLETE! XX SCH (17:15)
[2021-11-16] MEDS ORDERED: RENV2TAB PO ×2 (17:15)
[2021-11-16 17:30] VITALS: BP 123/81
[2021-11-16] MEDS ORDERED: NITROGLYCERIN 0.4 MG SUBL TABLET SL PRN (17:30)
[2021-11-16] MEDS ORDERED: BISACODYL 5 MG TAB PO PRN (17:30)
[2021-11-16] MEDS ORDERED: (RENVELA) SEVELAMER **CARBONate** 800 MG TAB PO PRN ×2 (17:30→18:00)
[2021-11-16] MEDS ORDERED: ANALGESIC BALM CRM 3OZ TOP PRN (17:30)
[2021-11-16] MEDS ORDERED: ACETAMINOPHEN 500 MG TAB PO PRN (17:30)
[2021-11-16] MEDS ORDERED: LACTULOSE 20 GM/30 ML SYRUP UD PO PRN (17:30)
[2021-11-16] MEDS: (RENVELA) SEVELAMER **CARBONate** 800 MG TAB PO SCH (18:00)
[2021-11-16 19:19] LABS: HEMATOCRIT 24.5 % (36.0-47.0); HEMOGLOBIN 7.5 g/dl (12.0-15.5); MEAN CORPUSCULAR HEMOGLOBIN 28.8 pg (27.0-33.0); MEAN CORPUSCULAR HGB CONC 30.6 g/dl (32.0-36.5); MEAN CORPUSCULAR VOLUME 94.2 fl (80.0-96.0); WHITE BLOOD COUNT 7.9 10^3/uL (4.0-10.0)
[2021-11-16 19:21] VITALS: O2SAT 99
[2021-11-16 19:30] LABS: PLATELET COUNT, AUTOMATED 279 10^3/uL (150-450)
[2021-11-16 20:00] VITALS: BP 150/77; O2SAT 99
[2021-11-16] MEDS: ASCORBIC ACID 500 MG TAB PO SCH (23:01)
[2021-11-17] VITALS (12 sets, daily range): BP systolic 118–151; BP diastolic 62–89; O2SAT 95–98
[2021-11-17] MEDS ORDERED: LIDOCAINE 1% SDV 5ML VIAL SC PRN (08:00)
[2021-11-17] MEDS ORDERED: SODIUM CHLORIDE 0.9% 1000ML IV PRN (08:00)
[2021-11-17] MEDS: ASCORBIC ACID 500 MG TAB PO SCH ×2 (08:30→21:35)
[2021-11-17] MEDS: OMEPRAZOLE 20MG CAP PO SCH (08:30)
[2021-11-17] MEDS: MULTIVITAMINS/MINERALS THERAP 1 TAB PO SCH (08:30)
[2021-11-17] MEDS: (RENVELA) SEVELAMER **CARBONate** 800 MG TAB PO SCH ×3 (10:58→17:04)
[2021-11-17] MEDS: METOPROLOL SUCC (TopROL XL) 100MG *XL* TAB PO SCH (10:58)
[2021-11-17] MEDS ORDERED: REMDESIVIR 200 MG in NS 250 ML IV ONE (18:00)
[2021-11-17] MEDS ORDERED: SODIUM CHLORIDE 0.9% INJ 10 ML SYR IV ONE (20:00)
[2021-11-18] VITALS (13 sets, daily range): BP systolic 93–145; BP diastolic 54–91; O2SAT 95–97
[2021-11-18 06:29] LABS: BASO % 0.3 % (0.0-1.0); EOS % 0.6 % (0.0-3.0); HEMOGLOBIN 8.3 g/dl (12.0-15.5); LYMPH # 1.4 10^3/uL (1.5-5.0); MEAN CORPUSCULAR HEMOGLOBIN 27.8 pg (27.0-33.0); MEAN CORPUSCULAR HGB CONC 30.7 g/dl (32.0-36.5); MEAN CORPUSCULAR VOLUME 90.3 fl (80.0-96.0); MONO # 0.7 10^3/uL (0.0-0.8); MONO % 9.9 % (2.0-8.0); NEUTROPHILS # 4.7 10^3/uL (1.5-8.5); NEUTROPHILS % 66.7 % (36.0-66.0); PLATELET COUNT, AUTOMATED 233 10^3/uL (150-450); RED BLOOD COUNT 2.99 10^6/uL (4.00-5.40); WHITE BLOOD COUNT 7.1 10^3/uL (4.0-10.0)
[2021-11-18] MEDS: (RENVELA) SEVELAMER **CARBONate** 800 MG TAB PO SCH ×3 (06:39→20:59)
[2021-11-18] MEDS: ASCORBIC ACID 500 MG TAB PO SCH ×2 (06:40→20:58)
[2021-11-18] MEDS: MULTIVITAMINS/MINERALS THERAP 1 TAB PO SCH (06:40)
[2021-11-18] MEDS: OMEPRAZOLE 20MG CAP PO SCH (06:40)
[2021-11-18 06:42] LABS: INR 1.02; PROTHROMBIN TIME 13.8 SECONDS (12.7-14.5)
[2021-11-18 06:43] LABS: PARTIAL THROMBOPLASTIN TIME 37.3 SECONDS (25.9-37.0)
[2021-11-18 07:16] LABS: ALBUMIN 1.7 GM/DL (3.2-5.2); ALT/SGPT 25 U/L (12-78); BILIRUBIN,DIRECT < 0.1 MG/DL (0.0-0.2); BILIRUBIN,TOTAL 0.3 MG/DL (0.2-1.0); BLOOD UREA NITROGEN 60 MG/DL (7-18); CALCIUM LEVEL 7.4 MG/DL (8.8-10.2); CARBON DIOXIDE LEVEL 27 MEQ/L (21-32); CHLORIDE LEVEL 103 MEQ/L (98-107); CREATININE FOR GFR 3.84 MG/DL (0.55-1.30); FERRITIN 2463 NG/ML (8-252); GLOMERULAR FILTRATION RATE 12.1 (>39); GLUCOSE, FASTING 78 MG/DL (70-100); LDH LACTATE DEHYDROGENASE 207 U/L (84-246); MAGNESIUM LEVEL 2.3 MG/DL (1.8-2.4); NT-PRO BNP 58651 PG/ML (<450); POTASSIUM SERUM 4.7 MEQ/L (3.5-5.1); SODIUM LEVEL 138 MEQ/L (136-145); TOTAL PROTEIN 4.8 GM/DL (6.4-8.2)
[2021-11-18] MEDS: REMDESIVIR 100 MG in NS 250 ML IV SCH (09:53)
[2021-11-18] MEDS: SODIUM CHLORIDE 0.9% INJ 10 ML SYR IV SCH (09:53)
[2021-11-18] MEDS: METOPROLOL SUCC (TopROL XL) 100MG *XL* TAB PO SCH (09:56)
[2021-11-18] MEDS ORDERED: LIDOCAINE 1% SDV 5ML VIAL SC PRN (11:15)
[2021-11-18] MEDS ORDERED: SODIUM CHLORIDE 0.9% 1000ML IV PRN (11:15)
[2021-11-18 17:27] LABS: HEMATOCRIT 26.6 % (36.0-47.0); HEMOGLOBIN 8.4 g/dl (12.0-15.5); MEAN CORPUSCULAR HEMOGLOBIN 28.6 pg (27.0-33.0); MEAN CORPUSCULAR HGB CONC 31.6 g/dl (32.0-36.5); MEAN CORPUSCULAR VOLUME 90.5 fl (80.0-96.0); PLATELET COUNT, AUTOMATED 229 10^3/uL (150-450); RED BLOOD COUNT 2.94 10^6/uL (4.00-5.40); WHITE BLOOD COUNT 9.3 10^3/uL (4.0-10.0)
[2021-11-18] MEDS ORDERED: METOPROLOL TART 12.5 MG PER 1/2 TAB PO ONE (20:45)
[2021-11-18 22:52] LABS: VENOUS BASE EXCESS 2.4 (-2.0-2.0); VENOUS HCO3 25.7 MEQ/L (23.0-27.0); VENOUS O2 SATURATION 91.6 % (60.0-80.0); VENOUS PARTIAL PRESSURE CO2 34.7 mmHg (38.0-50.0); VENOUS PARTIAL PRESSURE O2 60.7 mmHg (30.0-50.0); VENOUS PH 7.488 UNITS (7.330-7.430); VENOUS STANDARD HCO3 26.5 MEQ/L; VENOUS TOTAL CO2 26.8 MEQ/L (24.0-28.0)
[2021-11-18 22:55] LABS: HEMATOCRIT 26.1 % (36.0-47.0); HEMOGLOBIN 8.3 g/dl (12.0-15.5)
[2021-11-18 23:10] LABS: CALCIUM LEVEL 7.1 MG/DL (8.8-10.2); CREATININE FOR GFR 2.5 MG/DL (0.55-1.30); GLOMERULAR FILTRATION RATE 19.8 (>39)
[2021-11-19] VITALS (27 sets, daily range): BP systolic 85–193; BP diastolic 46–96; O2SAT 95–100
[2021-11-19] MEDS: ACETAMINOPHEN TAB 650MG DOSE (2X325MG) PO PRN ×2 (00:35→03:27)
[2021-11-19] MEDS ORDERED: LevoFLOXacin IV 750 MG in IV 1 EA IV ONE (01:00)
[2021-11-19] MEDS ORDERED: RAMELTEON 8 MG TAB (ROZEREM) PO PRN (03:45)
[2021-11-19] MEDS ORDERED: hydrOXYzine 25 MG TAB PO ONE (04:00)
[2021-11-19] MEDS ORDERED: diltiaZEM 125 MG in NS 100 ML IV SCH (05:00)
[2021-11-19] MEDS: diltiaZEM 125 MG in NS 100 ML IV SCH (05:00)
[2021-11-19] MEDS ORDERED: SODIUM CHLORIDE 0.9% 1000ML IV PRN (07:45)
[2021-11-19] MEDS ORDERED: LIDOCAINE 1% SDV 5ML VIAL SC PRN (07:45)
[2021-11-19] MEDS: (RENVELA) SEVELAMER **CARBONate** 800 MG TAB PO SCH ×3 (08:00→18:00)
[2021-11-19 08:07] LABS: EOS % 0.1 % (0.0-3.0); HEMATOCRIT 22.3 % (36.0-47.0); LYMPH # 1.1 10^3/uL (1.5-5.0); LYMPH % 15.5 % (24.0-44.0); MEAN CORPUSCULAR HEMOGLOBIN 28.2 pg (27.0-33.0); MEAN CORPUSCULAR HGB CONC 31.4 g/dl (32.0-36.5); MEAN CORPUSCULAR VOLUME 89.9 fl (80.0-96.0); MONO # 0.9 10^3/uL (0.0-0.8); MONO % 12.8 % (2.0-8.0); NEUTROPHILS # 4.8 10^3/uL (1.5-8.5); NEUTROPHILS % 70.1 % (36.0-66.0); PLATELET COUNT, AUTOMATED 164 10^3/uL (150-450); RED BLOOD COUNT 2.48 10^6/uL (4.00-5.40); WHITE BLOOD COUNT 6.9 10^3/uL (4.0-10.0)
[2021-11-19 08:53] LABS: CALCIUM LEVEL 7.1 MG/DL (8.8-10.2); CREATININE FOR GFR 2.8 MG/DL (0.55-1.30); GLOMERULAR FILTRATION RATE 17.4 (>39)
[2021-11-19] MEDS: MULTIVITAMINS/MINERALS THERAP 1 TAB PO SCH (08:59)
[2021-11-19] MEDS: ASCORBIC ACID 500 MG TAB PO SCH ×2 (08:59→22:29)
[2021-11-19] MEDS: OMEPRAZOLE 20MG CAP PO SCH (09:00)
[2021-11-19] MEDS: REMDESIVIR 100 MG in NS 250 ML IV SCH (09:04)
[2021-11-19 10:46] LABS: HEMATOCRIT 22.5 % (36.0-47.0); MEAN CORPUSCULAR HEMOGLOBIN 28.2 pg (27.0-33.0); MEAN CORPUSCULAR HGB CONC 31.1 g/dl (32.0-36.5); MEAN CORPUSCULAR VOLUME 90.7 fl (80.0-96.0); PLATELET COUNT, AUTOMATED 157 10^3/uL (150-450); RED BLOOD COUNT 2.48 10^6/uL (4.00-5.40); WHITE BLOOD COUNT 6.5 10^3/uL (4.0-10.0)
[2021-11-19] MEDS: METOPROLOL SUCC (TopROL XL) 100MG *XL* TAB PO SCH (10:50)
[2021-11-19] MEDS: SODIUM CHLORIDE 0.9% INJ 10 ML SYR IV SCH (11:19)
[2021-11-20] VITALS (35 sets, daily range): BP systolic 68–118; BP diastolic 47–67; O2SAT 92–96
[2021-11-20] MEDS: diltiaZEM 125 MG in NS 100 ML IV SCH ×5 (02:00→14:49)
[2021-11-20 06:10] LABS: BASO % 0.5 % (0.0-1.0); EOS % 0.3 % (0.0-3.0); HEMATOCRIT 33.5 % (36.0-47.0); LYMPH # 1.4 10^3/uL (1.5-5.0); LYMPH % 22.4 % (24.0-44.0); MEAN CORPUSCULAR HGB CONC 32.5 g/dl (32.0-36.5); MEAN CORPUSCULAR VOLUME 89.1 fl (80.0-96.0); MONO # 0.8 10^3/uL (0.0-0.8); MONO % 12.5 % (2.0-8.0); NEUTROPHILS % 63.5 % (36.0-66.0); PLATELET COUNT, AUTOMATED 134 10^3/uL (150-450); RED BLOOD COUNT 3.76 10^6/uL (4.00-5.40); WHITE BLOOD COUNT 6.3 10^3/uL (4.0-10.0)
[2021-11-20 06:11] LABS: HEMOGLOBIN 10.9 g/dl (12.0-15.5)
[2021-11-20 06:17] LABS: INR 1.26; PROTHROMBIN TIME 16.2 SECONDS (12.7-14.5)
[2021-11-20 06:18] LABS: PARTIAL THROMBOPLASTIN TIME 41.9 SECONDS (25.9-37.0)
[2021-11-20 06:50] LABS: ALBUMIN 1.5 GM/DL (3.2-5.2); BILIRUBIN,DIRECT 0.1 MG/DL (0.0-0.2); BILIRUBIN,TOTAL 0.4 MG/DL (0.2-1.0); CALCIUM LEVEL 7.4 MG/DL (8.8-10.2); CREATININE FOR GFR 2.25 MG/DL (0.55-1.30); GLOMERULAR FILTRATION RATE 22.3 (>39); MAGNESIUM LEVEL 2.1 MG/DL (1.8-2.4); POTASSIUM SERUM 3.8 MEQ/L (3.5-5.1); TOTAL PROTEIN 4.3 GM/DL (6.4-8.2)
[2021-11-20] MEDS: OMEPRAZOLE 20MG CAP PO SCH (08:40)
[2021-11-20] MEDS: MULTIVITAMINS/MINERALS THERAP 1 TAB PO SCH (08:40)
[2021-11-20] MEDS: (RENVELA) SEVELAMER **CARBONate** 800 MG TAB PO SCH ×3 (08:41→17:50)
[2021-11-20] MEDS: METOPROLOL SUCC (TopROL XL) 100MG *XL* TAB PO SCH ×2 (08:43→09:00)
[2021-11-20] MEDS: ASCORBIC ACID 500 MG TAB PO SCH ×2 (08:44→20:49)
[2021-11-20] MEDS ORDERED: NS 500 ML IV ONE ×3 (09:05→16:25)
[2021-11-20] MEDS ORDERED: diltiaZEM 125 MG in NS 100 ML IV SCH (09:40)
[2021-11-20] MEDS: ACETAMINOPHEN TAB 650MG DOSE (2X325MG) PO PRN (10:11)
[2021-11-20] MEDS ORDERED: NS 250 ML IV ONE (14:40)
[2021-11-20] MEDS: cefTRIAXone SOD 1 GM in D5W MINI-BAG PLUS 50 ML IV SCH (17:50)
[2021-11-20] MEDS: DOXYCYCLINE HYCLATE 100MG TABLET PO SCH (20:50)
[2021-11-21] VITALS (50 sets, daily range): BP systolic 96–161; BP diastolic 54–72; O2SAT 94–97
[2021-11-21 06:39] LABS: BASO % 0.3 % (0.0-1.0); EOS % 0.6 % (0.0-3.0); LYMPH # 1.2 10^3/uL (1.5-5.0); LYMPH % 18.2 % (24.0-44.0); MEAN CORPUSCULAR HEMOGLOBIN 28.9 pg (27.0-33.0); MEAN CORPUSCULAR HGB CONC 32.4 g/dl (32.0-36.5); MEAN CORPUSCULAR VOLUME 89.2 fl (80.0-96.0); MONO # 0.6 10^3/uL (0.0-0.8); MONO % 9.6 % (2.0-8.0); NEUTROPHILS # 4.7 10^3/uL (1.5-8.5); NEUTROPHILS % 70.4 % (36.0-66.0); PLATELET COUNT, AUTOMATED 122 10^3/uL (150-450); RED BLOOD COUNT 3.81 10^6/uL (4.00-5.40); WHITE BLOOD COUNT 6.6 10^3/uL (4.0-10.0)
[2021-11-21 06:57] LABS: CALCIUM LEVEL 7.2 MG/DL (8.8-10.2); CREATININE FOR GFR 3.43 MG/DL (0.55-1.30); GLOMERULAR FILTRATION RATE 13.7 (>39); MAGNESIUM LEVEL 2.2 MG/DL (1.8-2.4); POTASSIUM SERUM 4.4 MEQ/L (3.5-5.1)
[2021-11-21] MEDS: ASCORBIC ACID 500 MG TAB PO SCH ×2 (08:18→20:22)
[2021-11-21] MEDS: MULTIVITAMINS/MINERALS THERAP 1 TAB PO SCH (08:18)
[2021-11-21] MEDS: DOXYCYCLINE HYCLATE 100MG TABLET PO SCH ×2 (08:18→20:22)
[2021-11-21] MEDS: METOPROLOL SUCC (TopROL XL) 100MG *XL* TAB PO SCH (08:18)
[2021-11-21] MEDS: (RENVELA) SEVELAMER **CARBONate** 800 MG TAB PO SCH ×3 (08:18→18:45)
[2021-11-21] MEDS: OMEPRAZOLE 20MG CAP PO SCH (08:18)
[2021-11-21] MEDS: cefTRIAXone SOD 1 GM in D5W MINI-BAG PLUS 50 ML IV SCH (16:00)
[2021-11-22] VITALS (11 sets, daily range): BP systolic 105–149; BP diastolic 51–70; O2SAT 93–97
[2021-11-22 05:40] LABS: INR 1.05; PROTHROMBIN TIME 14.1 SECONDS (12.7-14.5)
[2021-11-22 05:41] LABS: PARTIAL THROMBOPLASTIN TIME 44.6 SECONDS (25.9-37.0)
[2021-11-22] MEDS: (RENVELA) SEVELAMER **CARBONate** 800 MG TAB PO SCH ×3 (08:13→21:23)
[2021-11-22 08:44] LABS: ALBUMIN 1.5 GM/DL (3.2-5.2); ALT/SGPT 13 U/L (12-78); BILIRUBIN,DIRECT < 0.1 MG/DL (0.0-0.2); BILIRUBIN,TOTAL 0.3 MG/DL (0.2-1.0); LDH LACTATE DEHYDROGENASE 281 U/L (84-246)
[2021-11-22] MEDS: ASCORBIC ACID 500 MG TAB PO SCH ×2 (08:59→21:24)
[2021-11-22] MEDS: DOXYCYCLINE HYCLATE 100MG TABLET PO SCH ×2 (08:59→21:24)
[2021-11-22] MEDS: MULTIVITAMINS/MINERALS THERAP 1 TAB PO SCH (08:59)
[2021-11-22] MEDS: OMEPRAZOLE 20MG CAP PO SCH (08:59)
[2021-11-22] MEDS: METOPROLOL SUCC (TopROL XL) 100MG *XL* TAB PO SCH (09:00)
[2021-11-22 09:22] LABS: BLOOD UREA NITROGEN 54 MG/DL (7-18); CALCIUM LEVEL 7.1 MG/DL (8.8-10.2); CARBON DIOXIDE LEVEL 24 MEQ/L (21-32); CHLORIDE LEVEL 99 MEQ/L (98-107); CREATININE FOR GFR 4.35 MG/DL (0.55-1.30); FERRITIN 2293 NG/ML (8-252); GLOMERULAR FILTRATION RATE 10.4 (>39); GLUCOSE, FASTING 74 MG/DL (70-100); NT-PRO BNP 42199 PG/ML (<450); PHOSPHORUS LEVEL 3.4 MG/DL (2.5-4.9); POTASSIUM SERUM 4.4 MEQ/L (3.5-5.1); SODIUM LEVEL 136 MEQ/L (136-145)
[2021-11-22] MEDS ORDERED: SODIUM CHLORIDE 0.9% 1000ML IV PRN (10:35)
[2021-11-22] MEDS ORDERED: LIDOCAINE 1% SDV 5ML VIAL SC PRN (10:35)
[2021-11-22] MEDS: ACETAMINOPHEN TAB 650MG DOSE (2X325MG) PO PRN (12:35)
[2021-11-22 16:38] LABS: BASO % 0.5 % (0.0-1.0); EOS # 0.1 10^3/uL (0.0-0.5); EOS % 0.7 % (0.0-3.0); HEMOGLOBIN 11.3 g/dl (12.0-15.5); LYMPH # 1.5 10^3/uL (1.5-5.0); LYMPH % 20.7 % (24.0-44.0); MEAN CORPUSCULAR HEMOGLOBIN 28.1 pg (27.0-33.0); MEAN CORPUSCULAR HGB CONC 32.3 g/dl (32.0-36.5); MEAN CORPUSCULAR VOLUME 87.1 fl (80.0-96.0); MONO # 0.7 10^3/uL (0.0-0.8); MONO % 9.9 % (2.0-8.0); NEUTROPHILS % 67.4 % (36.0-66.0); PLATELET COUNT, AUTOMATED 125 10^3/uL (150-450); RED BLOOD COUNT 4.02 10^6/uL (4.00-5.40); WHITE BLOOD COUNT 7.4 10^3/uL (4.0-10.0)
[2021-11-22] MEDS: cefTRIAXone SOD 1 GM in D5W MINI-BAG PLUS 50 ML IV SCH (21:23)
[2021-11-23] VITALS (10 sets, daily range): BP systolic 80–127; BP diastolic 50–69; O2SAT 94–97
[2021-11-23] MEDS ORDERED: DOXY100T PO (08:08)
[2021-11-23] MEDS ORDERED: CEFD300CAP PO (08:08)
[2021-11-23] MEDS ORDERED: BACITAB PO (08:08)
[2021-11-23] MEDS: (RENVELA) SEVELAMER **CARBONate** 800 MG TAB PO SCH ×2 (08:30→13:08)
[2021-11-23] MEDS: ASCORBIC ACID 500 MG TAB PO SCH (08:31)
[2021-11-23] MEDS: MULTIVITAMINS/MINERALS THERAP 1 TAB PO SCH (08:31)
[2021-11-23] MEDS: OMEPRAZOLE 20MG CAP PO SCH (08:32)
[2021-11-23] MEDS: DOXYCYCLINE HYCLATE 100MG TABLET PO SCH (08:32)
[2021-11-23] MEDS: METOPROLOL SUCC (TopROL XL) 100MG *XL* TAB PO SCH (08:32)
== END 2021-11-23 12:48 | DRG 811 ==
LOC: M ED 11:57 → M ED INP 14:24 → ENRESERV 15:53 → M 4MAIN 16:45 → OBSVTOIN 11-19 14:17 → M ICU 11-20 17:15
PROVIDERS: ADMIT Internal Medicine; ATTEND General Practice
PROC: XW033E5 Introduction of Remdesivir Anti-infective into Peripheral Vein, Percutaneous Approach, New Technology Group 5 (ICD-10-PCS; principal; 2021-11-19)
PROC: 30233N1 Transfusion of Nonautologous Red Blood Cells into Peripheral Vein, Percutaneous Approach (ICD-10-PCS; 2021-11-19)
PROC: 5A1D70Z Performance of Urinary Filtration, Intermittent, Less than 6 Hours Per Day (ICD-10-PCS; 2021-11-19)
DX: D50.0 Iron deficiency anemia secondary to blood loss (chronic) (principal); N18.6 End stage renal disease; U07.1 COVID-19; L89.154 Pressure ulcer of sacral region, stage 4; E43 Unspecified severe protein-calorie malnutrition; R53.2 Functional quadriplegia; J15.9 Unspecified bacterial pneumonia; I48.20 Chronic atrial fibrillation, unspecified; M31.30 Wegener's granulomatosis without renal involvement; N25.81 Secondary hyperparathyroidism of renal origin; I13.2 Hypertensive heart and chronic kidney disease with heart failure and with stage 5 chronic kidney disease, or end stage renal disease; K62.5 Hemorrhage of anus and rectum; K62.89 Other specified diseases of anus and rectum; D63.1 Anemia in chronic kidney disease; E55.9 Vitamin D deficiency, unspecified; I50.9 Heart failure, unspecified; K21.9 Gastro-esophageal reflux disease without esophagitis; Z88.0 Allergy status to penicillin; Z88.4 Allergy status to anesthetic agent; Z88.8 Allergy status to other drugs, medicaments and biological substances; Z79.01 Long term (current) use of anticoagulants; Z79.899 Other long term (current) drug therapy

== ENCOUNTER 2021-12-06 22:06 | Inpatient (IN) | payer MEDICARE, MEDICAID ==
[~2021-12-06] VITALS: Ht 157.5 cm; Wt 41.5 kg
[~2021-12-06 22:06] MED LIST changes: +BACITAB PO; +DOXY100T PO
[2021-12-06] MEDS ORDERED: ACETAMINOPHEN TAB 650MG DOSE (2X325MG) PO ONE (22:40)
[2021-12-06] MEDS ORDERED: NS 500 ML IV ONE (22:40)
[2021-12-06] MEDS ORDERED: MEROPENEM INJ 1 GM in IV 1 EA IV ONE (22:45)
[2021-12-06] MEDS ORDERED: VANCOMYCIN HCL 1,000 MG, VIAL MATE ADAPTER 1 EACH in NS 250 ML IV ONE (22:45)
[2021-12-06 23:01] LABS: BASO # 0.1 10^3/uL (0.0-0.2); BASO % 0.9 % (0.0-1.0); HEMATOCRIT 31.3 % (36.0-47.0); HEMOGLOBIN 9.9 g/dl (12.0-15.5); LYMPH # 1.2 10^3/uL (1.5-5.0); LYMPH % 15.6 % (24.0-44.0); MEAN CORPUSCULAR HEMOGLOBIN 28.5 pg (27.0-33.0); MEAN CORPUSCULAR HGB CONC 31.6 g/dl (32.0-36.5); MEAN CORPUSCULAR VOLUME 90.2 fl (80.0-96.0); MONO % 12.7 % (2.0-8.0); NEUTROPHILS # 5.3 10^3/uL (1.5-8.5); NEUTROPHILS % 69.5 % (36.0-66.0); PLATELET COUNT, AUTOMATED 239 10^3/uL (150-450); RED BLOOD COUNT 3.47 10^6/uL (4.00-5.40); WHITE BLOOD COUNT 7.6 10^3/uL (4.0-10.0)
[2021-12-06 23:23] LABS: ERYTHROCYTE SEDIMENTATION RATE 30 mm/hr (0-30)
[2021-12-06 23:41] LABS: CK-MB VALUE MASS 1.1 NG/ML (<3.6); MB/CK RELATIVE INDEX 1.8 (< OR =4)
[2021-12-06 23:46] LABS: OSMOLALITY SERUM 287 MOSM/KG (280-301)
[2021-12-06 23:48] LABS: ALBUMIN 1.8 GM/DL (3.2-5.2); ALT/SGPT 14 U/L (12-78); BILIRUBIN,DIRECT < 0.1 MG/DL (0.0-0.2); BILIRUBIN,TOTAL 0.4 MG/DL (0.2-1.0); BLOOD UREA NITROGEN 30 MG/DL (7-18); C REACTIVE PROTEIN QUANTITATIV 7.27 MG/DL (0.00-0.30); CALCIUM LEVEL 8.2 MG/DL (8.8-10.2); CARBON DIOXIDE LEVEL 26 MEQ/L (21-32); CHLORIDE LEVEL 104 MEQ/L (98-107); CREATININE FOR GFR 2.76 MG/DL (0.55-1.30); GLOMERULAR FILTRATION RATE 17.6 (>39); GLUCOSE, FASTING 78 MG/DL (70-100); POTASSIUM SERUM 4.8 MEQ/L (3.5-5.1); SODIUM LEVEL 140 MEQ/L (136-145); TOTAL PROTEIN 4.9 GM/DL (6.4-8.2)
[2021-12-07] VITALS (22 sets, daily range): BP systolic 96–141; BP diastolic 51–76
[2021-12-07] MEDS ORDERED: NS 500 ML IV ONE (00:10)
[2021-12-07] MEDS ORDERED: JUVE1POW PO (01:21)
[2021-12-07] MEDS ORDERED: ENSU1LIQ50 PO (01:21)
[2021-12-07] MEDS ORDERED: ACETAMINOPHEN TAB 650MG DOSE (2X325MG) PO PRN (01:25)
[2021-12-07] MEDS ORDERED: HOME MED LIST COMPLETE! XX SCH (01:25)
[2021-12-07] MEDS ORDERED: VANCOMYCIN HCL 1,000 MG, VIAL MATE ADAPTER 1 EACH in NS 250 ML IV SCH (01:35)
[2021-12-07] MEDS ORDERED: NS 1,000 ML IV SCH (02:05)
[2021-12-07 02:22] LABS: VENOUS BASE EXCESS 3.4 (-2.0-2.0); VENOUS HCO3 27.3 MEQ/L (23.0-27.0); VENOUS O2 SATURATION 94.3 % (60.0-80.0); VENOUS PARTIAL PRESSURE CO2 38.5 mmHg (38.0-50.0); VENOUS PARTIAL PRESSURE O2 68.6 mmHg (30.0-50.0); VENOUS PH 7.468 UNITS (7.330-7.430); VENOUS STANDARD HCO3 27.4 MEQ/L; VENOUS TOTAL CO2 28.4 MEQ/L (24.0-28.0)
[2021-12-07 02:36] LABS: INR 1.06; PROTHROMBIN TIME 14.2 SECONDS (12.7-14.5)
[2021-12-07 02:37] LABS: PARTIAL THROMBOPLASTIN TIME 32.6 SECONDS (25.9-37.0)
[2021-12-07] MEDS ORDERED: ANALGESIC BALM CRM 3OZ TOP PRN (02:50)
[2021-12-07] MEDS ORDERED: BISACODYL 10 MG SUPP PR PRN (02:50)
[2021-12-07] MEDS ORDERED: BISACODYL 5 MG TAB PO PRN (02:50)
[2021-12-07] MEDS ORDERED: LACTULOSE 20 GM/30 ML SYRUP UD PO PRN (02:50)
[2021-12-07] MEDS ORDERED: VANCOMYCIN HCL 750 MG, VIAL MATE ADAPTER 1 EACH in NS 250 ML IV ONE (04:00)
[2021-12-07 05:29] LABS: BASO % 0.7 % (0.0-1.0); HEMOGLOBIN 8.1 g/dl (12.0-15.5); LYMPH # 1.6 10^3/uL (1.5-5.0); MEAN CORPUSCULAR HEMOGLOBIN 28.2 pg (27.0-33.0); MEAN CORPUSCULAR VOLUME 94.1 fl (80.0-96.0); MONO # 0.9 10^3/uL (0.0-0.8); NEUTROPHILS # 3.1 10^3/uL (1.5-8.5); NEUTROPHILS % 54.4 % (36.0-66.0); PLATELET COUNT, AUTOMATED 200 10^3/uL (150-450); RED BLOOD COUNT 2.87 10^6/uL (4.00-5.40); WHITE BLOOD COUNT 5.7 10^3/uL (4.0-10.0)
[2021-12-07 05:54] LABS: CALCIUM LEVEL 7.8 MG/DL (8.8-10.2); CREATININE FOR GFR 2.76 MG/DL (0.55-1.30); GLOMERULAR FILTRATION RATE 17.6 (>39); POTASSIUM SERUM 3.5 MEQ/L (3.5-5.1)
[2021-12-07] MEDS ORDERED: REMDESIVIR 200 MG in NS 250 ML IV ONE (06:00)
[2021-12-07] MEDS ORDERED: MEROPENEM INJ 1 GM in IV 1 EA IV SCH (07:00)
[2021-12-07] MEDS: LACTOBACILLUS ACIDOPHILUS CAP (BACID) PO SCH ×4 (07:46→20:03)
[2021-12-07] MEDS: (RENVELA) SEVELAMER **CARBONate** 800 MG TAB PO SCH ×3 (07:46→17:09)
[2021-12-07] MEDS ORDERED: SODIUM CHLORIDE 0.9% INJ 10 ML SYR IV ONE (08:00)
[2021-12-07] MEDS: MIDODRINE 5 MG TAB PO SCH ×3 (08:00→16:03)
[2021-12-07] MEDS ORDERED: METOPROLOL SUCC (TopROL XL) 100MG *XL* TAB PO SCH (09:00)
[2021-12-07] MEDS ORDERED: HYDROCORTISONE 100 MG/2 ML VIAL (J1720 PER 1) IV SCH (10:00)
[2021-12-07] MEDS ORDERED: MEROPENEM INJ 500 MG in IV 1 EA IV SCH ×2 (10:00→16:00)
[2021-12-07] MEDS: DIGOXIN 0.0625MG PER 1/2TABLET PO SCH (10:40)
[2021-12-07] MEDS: OMEPRAZOLE 20MG CAP PO SCH (10:41)
[2021-12-07] MEDS: HEPARIN SOD (PORCINE) 5000UNITS/ML 1ML VIAL/SYRINGE SC SCH ×2 (10:42→20:03)
[2021-12-07] MEDS ORDERED: **VANCO AFTER HD** MISC XX SCH (16:00)
[2021-12-07] MEDS ORDERED: VANCOMYCIN HCL 750 MG, VIAL MATE ADAPTER 1 EACH in NS 250 ML IV SCH (16:00)
[2021-12-08 05:15] VITALS: BP 142/63
[2021-12-08] MEDS ORDERED: LIDOCAINE 1% SDV 5ML VIAL SC PRN (07:30)
[2021-12-08] MEDS ORDERED: SODIUM CHLORIDE 0.9% 1000ML IV PRN (07:30)
[2021-12-08] MEDS ORDERED: DIGO0.123 PO (08:31)
[2021-12-08 09:15] LABS: BASO # 0.1 10^3/uL (0.0-0.2); BASO % 1.7 % (0.0-1.0); EOS # 0.1 10^3/uL (0.0-0.5); EOS % 1.3 % (0.0-3.0); HEMATOCRIT 30.2 % (36.0-47.0); HEMOGLOBIN 9.2 g/dl (12.0-15.5); LYMPH # 1.7 10^3/uL (1.5-5.0); LYMPH % 28.1 % (24.0-44.0); MEAN CORPUSCULAR HEMOGLOBIN 28.2 pg (27.0-33.0); MEAN CORPUSCULAR HGB CONC 30.5 g/dl (32.0-36.5); MEAN CORPUSCULAR VOLUME 92.6 fl (80.0-96.0); MONO # 0.8 10^3/uL (0.0-0.8); MONO % 13.8 % (2.0-8.0); NEUTROPHILS # 3.2 10^3/uL (1.5-8.5); NEUTROPHILS % 53.3 % (36.0-66.0); PLATELET COUNT, AUTOMATED 247 10^3/uL (150-450); RED BLOOD COUNT 3.26 10^6/uL (4.00-5.40)
[2021-12-08 09:18] LABS: CALCIUM LEVEL 8.2 MG/DL (8.8-10.2); CREATININE FOR GFR 3.64 MG/DL (0.55-1.30); GLOMERULAR FILTRATION RATE 12.8 (>32)
[2021-12-08] MEDS: HEPARIN SOD (PORCINE) 5000UNITS/ML 1ML VIAL/SYRINGE SC SCH ×2 (09:29→19:52)
[2021-12-08] MEDS: (RENVELA) SEVELAMER **CARBONate** 800 MG TAB PO SCH ×3 (09:30→18:42)
[2021-12-08] MEDS: OMEPRAZOLE 20MG CAP PO SCH (09:30)
[2021-12-08] MEDS: DIGOXIN 0.0625MG PER 1/2TABLET PO SCH (09:31)
[2021-12-08] MEDS: LACTOBACILLUS ACIDOPHILUS CAP (BACID) PO SCH ×4 (09:31→19:52)
[2021-12-08] MEDS: MIDODRINE 5 MG TAB PO SCH ×2 (09:31→12:00)
[2021-12-08 14:00] VITALS: BP 146/82
[2021-12-08] MEDS ORDERED: REMDESIVIR 100 MG in NS 250 ML IV SCH (18:00)
[2021-12-08] MEDS ORDERED: SODIUM CHLORIDE 0.9% INJ 10 ML SYR IV SCH (19:00)
[2021-12-08 19:50] VITALS: BP 150/78
[2021-12-09 06:18] VITALS: BP 151/78
[2021-12-09] MEDS ORDERED: SODIUM CHLORIDE 0.9% 1000ML IV PRN (07:30)
[2021-12-09] MEDS ORDERED: LIDOCAINE 1% SDV 5ML VIAL SC PRN (07:30)
[2021-12-09] MEDS: HEPARIN SOD (PORCINE) 5000UNITS/ML 1ML VIAL/SYRINGE SC SCH (08:19)
[2021-12-09] MEDS: LACTOBACILLUS ACIDOPHILUS CAP (BACID) PO SCH (08:19)
[2021-12-09] MEDS: (RENVELA) SEVELAMER **CARBONate** 800 MG TAB PO SCH (08:19)
[2021-12-09] MEDS: OMEPRAZOLE 20MG CAP PO SCH (08:19)
[2021-12-09] MEDS: DIGOXIN 0.0625MG PER 1/2TABLET PO SCH (08:20)
== END 2021-12-09 09:51 | DRG 312 ==
LOC: EDBD 22:06 → M ED 22:06 → M ED INP 12-07 00:39 → M ICU 12-07 03:00 → M 4MAIN 12-07 11:26
PROVIDERS: ADMIT Family Medicine; ATTEND General Practice
PROC: 5A1D70Z Performance of Urinary Filtration, Intermittent, Less than 6 Hours Per Day (ICD-10-PCS; principal; 2021-12-09)
DX: I95.2 Hypotension due to drugs (principal); N18.6 End stage renal disease; R53.2 Functional quadriplegia; L89.154 Pressure ulcer of sacral region, stage 4; E46 Unspecified protein-calorie malnutrition; M31.31 Wegener's granulomatosis with renal involvement; N25.81 Secondary hyperparathyroidism of renal origin; I50.22 Chronic systolic (congestive) heart failure; I13.2 Hypertensive heart and chronic kidney disease with heart failure and with stage 5 chronic kidney disease, or end stage renal disease; I95.3 Hypotension of hemodialysis; I48.0 Paroxysmal atrial fibrillation; D63.1 Anemia in chronic kidney disease; M25.512 Pain in left shoulder; E55.9 Vitamin D deficiency, unspecified; I48.91 Unspecified atrial fibrillation; D37.5 Neoplasm of uncertain behavior of rectum; K21.9 Gastro-esophageal reflux disease without esophagitis; Z99.2 Dependence on renal dialysis; Z79.899 Other long term (current) drug therapy; Z88.0 Allergy status to penicillin; Z88.1 Allergy status to other antibiotic agents; Z88.8 Allergy status to other drugs, medicaments and biological substances; Z86.16 Personal history of COVID-19

== ENCOUNTER 2021-12-27 16:36 | Inpatient (IN) | payer MEDICARE, MEDICAID ==
[~2021-12-27] VITALS: Ht 157.5 cm; Wt 40.3 kg
[~2021-12-27 16:36] MED LIST changes: +DIGO0.123 PO; +ENSU1LIQ50 PO; +JUVE1POW PO
[2021-12-27] MEDS ORDERED: LABETALOL 100MG/20ML VIAL IV STA (17:51)
[2021-12-27 18:40] LABS: BASO # 0.1 10^3/uL (0.0-0.2); BASO % 1.7 % (0.0-1.0); EOS # 0.1 10^3/uL (0.0-0.5); EOS % 0.9 % (0.0-3.0); HEMATOCRIT 38.3 % (36.0-47.0); HEMOGLOBIN 11.7 g/dl (12.0-15.5); LYMPH # 1.2 10^3/uL (1.5-5.0); LYMPH % 20.9 % (24.0-44.0); MEAN CORPUSCULAR HEMOGLOBIN 27.2 pg (27.0-33.0); MEAN CORPUSCULAR HGB CONC 30.5 g/dl (32.0-36.5); MEAN CORPUSCULAR VOLUME 89.1 fl (80.0-96.0); MONO # 0.6 10^3/uL (0.0-0.8); MONO % 9.5 % (2.0-8.0); NEUTROPHILS # 3.8 10^3/uL (1.5-8.5); NEUTROPHILS % 66.5 % (36.0-66.0); PLATELET COUNT, AUTOMATED 225 10^3/uL (150-450); WHITE BLOOD COUNT 5.8 10^3/uL (4.0-10.0)
[2021-12-27 18:59] LABS: INR 0.84; PROTHROMBIN TIME 11.9 SECONDS (12.7-14.5)
[2021-12-27 19:32] LABS: ALBUMIN 1.9 GM/DL (3.2-5.2); BILIRUBIN,DIRECT 0.1 MG/DL (0.0-0.2); BILIRUBIN,TOTAL 0.5 MG/DL (0.2-1.0); CALCIUM LEVEL 8.7 MG/DL (8.8-10.2); CREATININE FOR GFR 2.21 MG/DL (0.55-1.30); GLOMERULAR FILTRATION RATE 22.7 (>32); POTASSIUM SERUM 4.5 MEQ/L (3.5-5.1); TOTAL PROTEIN 5.4 GM/DL (6.4-8.2)
[2021-12-27] MEDS ORDERED: METO1TAB33 PO (20:46)
[2021-12-27 21:09] LABS: CK-MB VALUE MASS 2.7 NG/ML (<3.6); MB/CK RELATIVE INDEX 1.93 (< OR =4)
[2021-12-27] MEDS ORDERED: MAALOX 30 ML SUSP *UDC PO PRN (21:10)
[2021-12-27] MEDS ORDERED: MOM 30ML SUSPENSION UDC PO PRN (21:10)
[2021-12-27 21:28] LABS: APPEARANCE, URINE CLOUDY (CLEAR); BACTERIA, URINE AUTO 1+ (NEGATIVE); BILIRUBIN, URINE AUTO NEGATIVE (NEGATIVE); BLOOD, URINE BLOOD 1+ (NEGATIVE); COLOR, URINE AMBER (YELLOW); GLUCOSE, URINE (UA) AUTO NEGATIVE (NEGATIVE); KETONE, URINE AUTO NEGATIVE (NEGATIVE); LEUKOCYTE ESTERASE, URINE AUTO 3+ (NEGATIVE); MUCUS, URINE SMALL (NEGATIVE); NITRITE, URINE AUTO NEGATIVE (NEGATIVE); PROTEIN, URINE AUTO 2+ mg/dL (NEGATIVE); RBC, URINE AUTO 15 /HPF (0-3); SQUAMOUS EPITHELIAL CELL UR AU 15 /HPF (0-6); TRANSITIONAL EPITHELIAL AUTO 1 /HPF; UROBILINOGEN, URINE AUTO 0.2 mg/dL (0.0-2.0); WBC, URINE AUTO 134 /HPF (0-3)
[2021-12-27] MEDS: cefTRIAXone SOD 1 GM in D5W MINI-BAG PLUS 50 ML IV SCH (22:00)
[2021-12-27] MEDS ORDERED: ASPIRIN 81 MG CHEW TABLET PO ONE (22:00)
[2021-12-27] MEDS ORDERED: VANCOMYCIN HCL 1,000 MG, VIAL MATE ADAPTER 1 EACH in NS 250 ML IV SCH (23:00)
[2021-12-27] MEDS ORDERED: DOXYCYCLINE HYCLATE 100 MG in D5W MINI-BAG PLUS 100 ML IV SCH (23:00)
[2021-12-27] MEDS ORDERED: DIGO0.123 PO (23:15)
[2021-12-27] MEDS ORDERED: HOME MED LIST COMPLETE! XX SCH (23:20)
[2021-12-27 23:31] LABS: DIGOXIN LEVEL 1.5 NG/ML (0.5-2.0)
[2021-12-28] MEDS ORDERED: VANCOMYCIN HCL 750 MG, VIAL MATE ADAPTER 1 EACH in NS 250 ML IV ONE ×3
[2021-12-28 00:30] VITALS: BP 141/90
[2021-12-28 00:42] LABS: ERYTHROCYTE SEDIMENTATION RATE 12 mm/hr (0-30)
[2021-12-28 04:00] VITALS: BP 120/65
[2021-12-28] MEDS ORDERED: NITROGLYCERIN 0.4 MG SUBL TABLET SL PRN (04:25)
[2021-12-28 05:41] LABS: BASO # 0.1 10^3/uL (0.0-0.2); BASO % 2.1 % (0.0-1.0); EOS # 0.1 10^3/uL (0.0-0.5); EOS % 2.6 % (0.0-3.0); HEMATOCRIT 28.9 % (36.0-47.0); LYMPH # 1.3 10^3/uL (1.5-5.0); LYMPH % 28.1 % (24.0-44.0); MEAN CORPUSCULAR HEMOGLOBIN 27.4 pg (27.0-33.0); MEAN CORPUSCULAR HGB CONC 31.1 g/dl (32.0-36.5); MEAN CORPUSCULAR VOLUME 88.1 fl (80.0-96.0); MONO # 0.7 10^3/uL (0.0-0.8); NEUTROPHILS # 2.4 10^3/uL (1.5-8.5); NEUTROPHILS % 51.8 % (36.0-66.0); PLATELET COUNT, AUTOMATED 171 10^3/uL (150-450); RED BLOOD COUNT 3.28 10^6/uL (4.00-5.40); WHITE BLOOD COUNT 4.7 10^3/uL (4.0-10.0)
[2021-12-28 06:04] LABS: ALBUMIN 1.6 GM/DL (3.2-5.2); BILIRUBIN,TOTAL 0.3 MG/DL (0.2-1.0); CREATININE FOR GFR 2.51 MG/DL (0.55-1.30); GLOMERULAR FILTRATION RATE 19.6 (>32); MAGNESIUM LEVEL 1.9 MG/DL (1.8-2.4); POTASSIUM SERUM 3.6 MEQ/L (3.5-5.1); TOTAL PROTEIN 4.4 GM/DL (6.4-8.2)
[2021-12-28 06:17] LABS: CK-MB VALUE MASS 3.8 NG/ML (<3.6); MB/CK RELATIVE INDEX 9.74 (< OR =4)
[2021-12-28] MEDS ORDERED: BISACODYL 10 MG SUPP PR ONE (07:00)
[2021-12-28] MEDS ORDERED: LACTULOSE 20 GM/30 ML SYRUP UD PR ONE (07:05)
[2021-12-28 08:00] VITALS: BP 128/62
[2021-12-28 08:16] LABS: VANCOMYCIN RANDOM 16.6 UG/ML
[2021-12-28] MEDS: (RENVELA) SEVELAMER **CARBONate** 800 MG TAB PO SCH ×3 (08:56→17:46)
[2021-12-28] MEDS ORDERED: METOPROLOL SUCC (TopROL XL) 50MG **XL** TAB PO SCH (09:00)
[2021-12-28] MEDS ORDERED: MIRALAX *UNIT DOSE* 17GM PACKET PO SCH (09:00)
[2021-12-28] MEDS: DIGOXIN 0.0625MG PER 1/2TABLET PO SCH (09:03)
[2021-12-28 12:00] VITALS: BP 157/71
[2021-12-28] MEDS ORDERED: METOPROLOL SUCC (TopROL XL) 50MG **XL** TAB PO ONE (13:55)
[2021-12-28] MEDS: **VANCO AFTER HD** MISC XX SCH (15:58)
[2021-12-28 16:00] VITALS: BP 175/76
[2021-12-28] MEDS: metroNIDAZOLE 500 MG in IV 1 EA IV SCH (17:46)
[2021-12-28] MEDS: **hydrALAZINE HCL** 25 MG TAB PO SCH (17:46)
[2021-12-28 20:00] VITALS: BP 158/78
[2021-12-28] MEDS ORDERED: BISACODYL 10 MG SUPP PR SCH (21:00)
[2021-12-28] MEDS: BISACODYL 10 MG SUPP PR SCH (21:00)
[2021-12-28] MEDS: SENOKOT S TAB PO SCH (21:00)
[2021-12-28] MEDS: OMEPRAZOLE 20MG CAP PO SCH (21:20)
[2021-12-28] MEDS: cefTRIAXone SOD 1 GM in D5W MINI-BAG PLUS 50 ML IV SCH (21:21)
[2021-12-29] VITALS: BP 125/74
[2021-12-29] MEDS: metroNIDAZOLE 500 MG in IV 1 EA IV SCH ×3 (01:01→22:06)
[2021-12-29 04:00] VITALS: BP 112/65
[2021-12-29] MEDS: **hydrALAZINE HCL** 25 MG TAB PO SCH ×4 (05:52→18:00)
[2021-12-29 08:00] VITALS: BP 135/87
[2021-12-29] MEDS: SENOKOT S TAB PO SCH ×2 (08:35→21:00)
[2021-12-29] MEDS: ACETAMINOPHEN TAB 650MG DOSE (2X325MG) PO PRN (08:35)
[2021-12-29] MEDS: (RENVELA) SEVELAMER **CARBONate** 800 MG TAB PO SCH ×3 (08:38→17:47)
[2021-12-29] MEDS: DIGOXIN 0.0625MG PER 1/2TABLET PO SCH (08:38)
[2021-12-29] MEDS ORDERED: SODIUM CHLORIDE 0.9% 1000ML IV PRN (08:40)
[2021-12-29] MEDS ORDERED: LIDOCAINE 1% SDV 5ML VIAL SC PRN (08:40)
[2021-12-29] MEDS: BISACODYL 10 MG SUPP PR SCH ×4 (08:40→21:00)
[2021-12-29 10:55] LABS: C REACTIVE PROTEIN QUANTITATIV 10.6 MG/DL (0.00-0.30)
[2021-12-29 15:02] VITALS: BP 128/63
[2021-12-29] MEDS: METOPROLOL SUCC (TopROL XL) 100MG *XL* TAB PO SCH (15:04)
[2021-12-29] MEDS: VANCOMYCIN HCL 750 MG, VIAL MATE ADAPTER 1 EACH in NS 250 ML IV SCH (17:16)
[2021-12-29] MEDS: **VANCO AFTER HD** MISC XX SCH (17:17)
[2021-12-29 18:06] VITALS: BP 142/66
[2021-12-29 19:35] VITALS: BP 133/66
[2021-12-29] MEDS: OMEPRAZOLE 20MG CAP PO SCH (21:10)
[2021-12-29] MEDS: cefTRIAXone SOD 1 GM in D5W MINI-BAG PLUS 50 ML IV SCH (21:10)
[2021-12-30 00:05] VITALS: BP 157/67
[2021-12-30 04:05] VITALS: BP 138/68
[2021-12-30] MEDS: **hydrALAZINE HCL** 25 MG TAB PO SCH ×5 (06:00→23:09)
[2021-12-30] MEDS: metroNIDAZOLE 500 MG in IV 1 EA IV SCH ×3 (06:28→23:14)
[2021-12-30 07:58] VITALS: BP 153/69
[2021-12-30] MEDS: SENOKOT S TAB PO SCH ×2 (08:16→20:09)
[2021-12-30] MEDS: BISACODYL 10 MG SUPP PR SCH ×4 (08:16→20:09)
[2021-12-30] MEDS: DIGOXIN 0.0625MG PER 1/2TABLET PO SCH (08:17)
[2021-12-30] MEDS: METOPROLOL SUCC (TopROL XL) 100MG *XL* TAB PO SCH (08:17)
[2021-12-30] MEDS: (RENVELA) SEVELAMER **CARBONate** 800 MG TAB PO SCH ×3 (08:17→17:30)
[2021-12-30 09:16] LABS: CALCIUM LEVEL 8.4 MG/DL (8.8-10.2); CREATININE FOR GFR 2.37 MG/DL (0.55-1.30); POTASSIUM SERUM 3.9 MEQ/L (3.5-5.1); VANCOMYCIN RANDOM 21.8 UG/ML
[2021-12-30 09:30] LABS: BASO # 0.1 10^3/uL (0.0-0.2); BASO % 1.8 % (0.0-1.0); EOS # 0.2 10^3/uL (0.0-0.5); EOS % 3.4 % (0.0-3.0); HEMATOCRIT 33.4 % (36.0-47.0); HEMOGLOBIN 10.2 g/dl (12.0-15.5); LYMPH # 1.7 10^3/uL (1.5-5.0); LYMPH % 27.9 % (24.0-44.0); MEAN CORPUSCULAR HEMOGLOBIN 27.3 pg (27.0-33.0); MEAN CORPUSCULAR HGB CONC 30.5 g/dl (32.0-36.5); MEAN CORPUSCULAR VOLUME 89.5 fl (80.0-96.0); MONO # 0.7 10^3/uL (0.0-0.8); MONO % 10.5 % (2.0-8.0); NEUTROPHILS # 3.5 10^3/uL (1.5-8.5); NEUTROPHILS % 56.1 % (36.0-66.0); PLATELET COUNT, AUTOMATED 145 10^3/uL (150-450); RED BLOOD COUNT 3.73 10^6/uL (4.00-5.40); WHITE BLOOD COUNT 6.2 10^3/uL (4.0-10.0)
[2021-12-30] MEDS ORDERED: MAGNESIUM CITRATE 300 ML BTL PO ONE (09:45)
[2021-12-30 12:14] VITALS: BP 124/64
[2021-12-30] MEDS: **VANCO AFTER HD** MISC XX SCH (15:04)
[2021-12-30 16:08] VITALS: BP 164/81
[2021-12-30 19:15] VITALS: BP 160/85
[2021-12-30] MEDS: OMEPRAZOLE 20MG CAP PO SCH (20:09)
[2021-12-30] MEDS: cefTRIAXone SOD 1 GM in D5W MINI-BAG PLUS 50 ML IV SCH (22:23)
[2021-12-31] MEDS ORDERED: DEXTROSE 50% 50 ML SYRINGE IV PRN (00:25)
[2021-12-31] MEDS ORDERED: GLUCAGON INJ 1MG VIAL SC PRN (00:25)
[2021-12-31] MEDS ORDERED: GLUCOSE 4GM CHEW TABLET PO PRN (00:25)
[2021-12-31] MEDS: **hydrALAZINE HCL** 25 MG TAB PO SCH ×4 (05:47→23:52)
[2021-12-31 06:00] VITALS: BP 131/67
[2021-12-31] MEDS ORDERED: LIDOCAINE 1% SDV 5ML VIAL SC PRN (06:00)
[2021-12-31] MEDS ORDERED: SODIUM CHLORIDE 0.9% 1000ML IV PRN (06:00)
[2021-12-31] MEDS: metroNIDAZOLE 500 MG in IV 1 EA IV SCH ×3 (06:04→23:47)
[2021-12-31] MEDS: METOPROLOL SUCC (TopROL XL) 100MG *XL* TAB PO SCH (06:05)
[2021-12-31 06:33] LABS: BASO # 0.1 10^3/uL (0.0-0.2); BASO % 1.7 % (0.0-1.0); EOS # 0.2 10^3/uL (0.0-0.5); EOS % 3.3 % (0.0-3.0); HEMATOCRIT 30.3 % (36.0-47.0); HEMOGLOBIN 9.4 g/dl (12.0-15.5); LYMPH # 1.6 10^3/uL (1.5-5.0); LYMPH % 24.5 % (24.0-44.0); MEAN CORPUSCULAR HEMOGLOBIN 27.2 pg (27.0-33.0); MEAN CORPUSCULAR VOLUME 87.8 fl (80.0-96.0); MONO # 0.6 10^3/uL (0.0-0.8); MONO % 9.3 % (2.0-8.0); NEUTROPHILS % 60.7 % (36.0-66.0); PLATELET COUNT, AUTOMATED 163 10^3/uL (150-450); RED BLOOD COUNT 3.45 10^6/uL (4.00-5.40); WHITE BLOOD COUNT 6.7 10^3/uL (4.0-10.0)
[2021-12-31 06:51] LABS: CALCIUM LEVEL 8.2 MG/DL (8.8-10.2); CREATININE FOR GFR 3.19 MG/DL (0.55-1.30); GLOMERULAR FILTRATION RATE 14.9 (>32)
[2021-12-31] MEDS: BISACODYL 10 MG SUPP PR SCH ×5 (09:00→22:28)
[2021-12-31] MEDS: (RENVELA) SEVELAMER **CARBONate** 800 MG TAB PO SCH ×3 (09:02→18:07)
[2021-12-31] MEDS: SENOKOT S TAB PO SCH ×2 (09:04→22:28)
[2021-12-31] MEDS: DIGOXIN 0.0625MG PER 1/2TABLET PO SCH (10:17)
[2021-12-31] MEDS: VANCOMYCIN HCL 750 MG, VIAL MATE ADAPTER 1 EACH in NS 250 ML IV SCH (18:06)
[2021-12-31] MEDS: **VANCO AFTER HD** MISC XX SCH (18:15)
[2021-12-31 22:00] VITALS: BP 157/75
[2021-12-31] MEDS: cefTRIAXone SOD 1 GM in D5W MINI-BAG PLUS 50 ML IV SCH (22:28)
[2021-12-31] MEDS: OMEPRAZOLE 20MG CAP PO SCH (22:28)
[2022-01-01 06:00] VITALS: BP 137/69
[2022-01-01] MEDS: **hydrALAZINE HCL** 25 MG TAB PO SCH ×3 (06:00→17:54)
[2022-01-01] MEDS: metroNIDAZOLE 500 MG in IV 1 EA IV SCH (07:00)
[2022-01-01] MEDS: BISACODYL 10 MG SUPP PR SCH ×4 (09:00→20:50)
[2022-01-01] MEDS: (RENVELA) SEVELAMER **CARBONate** 800 MG TAB PO SCH ×3 (09:01→17:55)
[2022-01-01] MEDS: DIGOXIN 0.0625MG PER 1/2TABLET PO SCH (09:02)
[2022-01-01] MEDS: SENOKOT S TAB PO SCH ×2 (09:02→20:50)
[2022-01-01] MEDS: METOPROLOL SUCC (TopROL XL) 100MG *XL* TAB PO SCH (09:03)
[2022-01-01] MEDS: CEPHALEXIN 500 MG CAP PO SCH ×3 (11:51→21:12)
[2022-01-01 14:00] VITALS: BP 139/75
[2022-01-01] MEDS ORDERED: DARBEPOETIN 100 MCG/0.5 ML *DIALYSIS* SYRINGE (J0882) IV SCH (16:00)
[2022-01-01] MEDS: OMEPRAZOLE 20MG CAP PO SCH ×3 (20:49→21:12)
[2022-01-01 22:00] VITALS: BP 140/77
[2022-01-02 06:00] VITALS: BP 124/69
[2022-01-02] MEDS: **hydrALAZINE HCL** 25 MG TAB PO SCH ×4 (06:00→18:00)
[2022-01-02] MEDS ORDERED: CEPHALEXIN 500 MG CAP PO ONE (10:10)
[2022-01-02] MEDS: (RENVELA) SEVELAMER **CARBONate** 800 MG TAB PO SCH ×3 (10:12→18:36)
[2022-01-02] MEDS: DIGOXIN 0.0625MG PER 1/2TABLET PO SCH (10:13)
[2022-01-02] MEDS: SENOKOT S TAB PO SCH ×2 (10:13→21:00)
[2022-01-02] MEDS: METOPROLOL SUCC (TopROL XL) 100MG *XL* TAB PO SCH (10:14)
[2022-01-02] MEDS: BISACODYL 10 MG SUPP PR SCH ×4 (10:14→21:00)
[2022-01-02 14:00] VITALS: BP 121/65
[2022-01-02 20:09] VITALS: BP 110/58
[2022-01-02] MEDS: CEPHALEXIN 500 MG CAP PO SCH (21:49)
[2022-01-02] MEDS: OMEPRAZOLE 20MG CAP PO SCH ×2 (21:52→21:58)
[2022-01-03 05:07] VITALS: BP 142/80
[2022-01-03] MEDS: **hydrALAZINE HCL** 25 MG TAB PO SCH ×2 (05:17)
[2022-01-03] MEDS: CEPHALEXIN 500 MG CAP PO SCH (05:50)
[2022-01-03] MEDS: DIGOXIN 0.0625MG PER 1/2TABLET PO SCH (05:50)
[2022-01-03 05:51] VITALS: BP 142/80
[2022-01-03] MEDS: METOPROLOL SUCC (TopROL XL) 100MG *XL* TAB PO SCH (05:51)
[2022-01-03] MEDS: (RENVELA) SEVELAMER **CARBONate** 800 MG TAB PO SCH (05:52)
[2022-01-03] MEDS: SENOKOT S TAB PO SCH ×2 (05:52→19:22)
[2022-01-03] MEDS: BISACODYL 10 MG SUPP PR SCH ×4 (05:53→19:23)
[2022-01-03] MEDS ORDERED: ONDANSETRON 4MG ORAL DISINTEGRATING TAB PO PRN (10:05)
[2022-01-03] MEDS: LORazepam 1 MG TAB PO PRN (22:42)
[2022-01-04] MEDS: BISACODYL 10 MG SUPP PR SCH ×4 (09:00→20:10)
[2022-01-04] MEDS: SENOKOT S TAB PO SCH ×2 (09:00→20:10)
[2022-01-05] MEDS: SENOKOT S TAB PO SCH ×2 (09:00→21:00)
[2022-01-05] MEDS: BISACODYL 10 MG SUPP PR SCH ×4 (09:00→21:00)
[2022-01-05] MEDS: MORPHINE 10MG/0.5ML ORAL CONCENTRATE SOLUTION U/D SL PRN (17:28)
[2022-01-06] MEDS: BISACODYL 10 MG SUPP PR SCH ×4 (08:20→20:32)
[2022-01-06] MEDS: SENOKOT S TAB PO SCH ×2 (08:20→20:32)
[2022-01-06] MEDS: LORazepam 1 MG TAB PO PRN (09:59)
[2022-01-07] MEDS: LORazepam 1 MG TAB PO PRN (05:04)
[2022-01-07] MEDS: SENOKOT S TAB PO SCH ×2 (08:41→21:00)
[2022-01-07] MEDS: BISACODYL 10 MG SUPP PR SCH ×3 (08:42→16:19)
[2022-01-08] MEDS: BISACODYL 10 MG SUPP PR SCH ×6 (01:29→21:03)
[2022-01-08] MEDS: LORazepam 1 MG TAB PO PRN (03:40)
[2022-01-08] MEDS: SENOKOT S TAB PO SCH ×3 (08:51→21:03)
[2022-01-09] MEDS: BISACODYL 10 MG SUPP PR SCH ×4 (09:22→19:58)
[2022-01-09] MEDS: SENOKOT S TAB PO SCH ×2 (09:22→19:58)
[2022-01-10] MEDS: BISACODYL 10 MG SUPP PR SCH ×4 (09:00→20:51)
[2022-01-10] MEDS: SENOKOT S TAB PO SCH ×2 (09:00→20:51)
[2022-01-11] MEDS: BISACODYL 10 MG SUPP PR SCH ×4 (08:08→20:06)
[2022-01-11] MEDS: SENOKOT S TAB PO SCH ×2 (09:00→20:10)
[2022-01-12] MEDS: ACETAMINOPHEN TAB 650MG DOSE (2X325MG) PO PRN (00:33)
[2022-01-12] MEDS: SENOKOT S TAB PO SCH ×2 (09:00→20:48)
[2022-01-12] MEDS: BISACODYL 10 MG SUPP PR SCH ×4 (09:00→20:48)
[2022-01-13] MEDS: SENOKOT S TAB PO SCH ×2 (08:53→21:00)
[2022-01-13] MEDS: BISACODYL 10 MG SUPP PR SCH ×4 (08:53→21:00)
[2022-01-13] MEDS: ACETAMINOPHEN TAB 650MG DOSE (2X325MG) PO PRN (14:21)
[2022-01-14] MEDS: SENOKOT S TAB PO SCH ×2 (09:00→22:37)
[2022-01-14] MEDS: BISACODYL 10 MG SUPP PR SCH ×4 (09:00→21:00)
[2022-01-15] MEDS: SENOKOT S TAB PO SCH ×2 (09:00→21:00)
[2022-01-15] MEDS: BISACODYL 10 MG SUPP PR SCH ×4 (09:00→21:00)
[2022-01-16] MEDS: BISACODYL 10 MG SUPP PR SCH ×4 (08:27→21:00)
[2022-01-16] MEDS: SENOKOT S TAB PO SCH ×2 (08:27→21:00)
[2022-01-16] MEDS: MORPHINE 10MG/0.5ML ORAL CONCENTRATE SOLUTION U/D SL PRN ×2 (14:06→22:18)
[2022-01-18] MEDS: MORPHINE 10MG/0.5ML ORAL CONCENTRATE SOLUTION U/D SL PRN ×4 (08:58→19:10)
[2022-01-18] MEDS: HYOSCYAMINE SULFATE 0.125 MG SUBL TABLET PO PRN (10:34)
[2022-01-19] MEDS: MORPHINE 10MG/0.5ML ORAL CONCENTRATE SOLUTION U/D SL PRN ×2 (00:09→06:55)
[2022-01-19] MEDS: HYOSCYAMINE SULFATE 0.125 MG SUBL TABLET PO PRN (06:53)
== END 2022-01-20 07:15 | disposition expired | DRG 592 ==
LOC: EDBD 16:36 → M ED 16:36 → M ED INP 21:08 → ENRESERV 22:34 → M PCU 12-28 00:01 → M MSPAV 12-30 19:07
PROVIDERS: ADMIT Family Medicine; ATTEND Family Medicine
PROC: 5A1D70Z Performance of Urinary Filtration, Intermittent, Less than 6 Hours Per Day (ICD-10-PCS; principal; 2021-12-29)
DX: L89.154 Pressure ulcer of sacral region, stage 4 (principal); N18.6 End stage renal disease; R53.2 Functional quadriplegia; G93.41 Metabolic encephalopathy; I21.A1 Myocardial infarction type 2; E43 Unspecified severe protein-calorie malnutrition; I50.22 Chronic systolic (congestive) heart failure; C20 Malignant neoplasm of rectum; N25.81 Secondary hyperparathyroidism of renal origin; M31.7 Microscopic polyangiitis; R64 Cachexia; Z68.1 Body mass index [BMI] 19.9 or less, adult; E87.2 Acidosis; N39.0 Urinary tract infection, site not specified; I13.2 Hypertensive heart and chronic kidney disease with heart failure and with stage 5 chronic kidney disease, or end stage renal disease; F20.0 Paranoid schizophrenia; Z51.5 Encounter for palliative care; Z66 Do not resuscitate; K56.41 Fecal impaction; E16.2 Hypoglycemia, unspecified; R41.82 Altered mental status, unspecified; I11.0 Hypertensive heart disease with heart failure; I95.3 Hypotension of hemodialysis; I48.0 Paroxysmal atrial fibrillation; N25.0 Renal osteodystrophy; D63.1 Anemia in chronic kidney disease; K52.9 Noninfective gastroenteritis and colitis, unspecified; R62.7 Adult failure to thrive; M48.061 Spinal stenosis, lumbar region without neurogenic claudication; E55.9 Vitamin D deficiency, unspecified; I16.0 Hypertensive urgency; Z74.01 Bed confinement status; Z88.0 Allergy status to penicillin; Z88.1 Allergy status to other antibiotic agents; Z88.8 Allergy status to other drugs, medicaments and biological substances; Z86.73 Personal history of transient ischemic attack (TIA), and cerebral infarction without residual deficits; Z99.2 Dependence on renal dialysis; Z79.899 Other long term (current) drug therapy